=== PATIENT | female | born 1950 | race Hispanic/Latino ===

== ENCOUNTER 2016-05-16 08:16 | Emergency (ER) | payer MEDICARE, OTHER ==
[2016-05-16 08:16] VITALS: PULSE 150; BMI 20.9
[2016-05-16] MEDS ORDERED: Phenol Topical 1.4% Throat Spray (180 ml) MT PRN (09:05)
--- NOTE | 2016-05-16 09:20 | ED PDOC ---
Arrival/HPI - General Historian: Patient - History of Present Illness Time/Duration: < week - General Chief Complaint: ENT Problem Time Seen by Provider: 05/16/16 08:50 - History of Present Illness Narrative History of Present Illness (Text): 05/16/16 09:15 65 y/o female with hx alcoholic cardiomyopathy, COPD, CHF presenting with complaints of a sore throat. States symptoms have been ongoing for 3 days. Patient denies associated fever, chills, shortness of breath, cough or sinus congestion.She denies sick contacts as well. Patient further states she cannot tolerate solids or liquids by mouth due the discomfort. She has not taken her medications for 3 days. (Pepe Boo) Past Medical History - Provider Review Nursing Documentation Reviewed: Yes - Past History Past History: Non-Contributing - Infectious Disease Hx of Infectious Diseases: None - Tetanus Immunization Tetanus Immunization: Up to Date, Unknown - Cardiac Hx Cardiac Disorders: Yes Hx Congestive Heart Failure: Yes Hx Hypertension: Yes - Pulmonary Hx Chronic Obstructive Pulmonary Disease (COPD): Yes - Neurological Hx Neurological Disorder: Yes (syncope ams) Hx Dizziness: Yes - HEENT Hx HEENT Disorder: Yes (eyeglasses) - Renal Hx Renal Disorder: No - Endocrine/Metabolic Hx Endocrine Disorders: Yes Other/Comment: hyperglycemia - Hematological/Oncological Hx Blood Disorders: Yes (thrombocytopenia) Hx Anemia: Yes (blood transfusion) Hx Cancer: Yes (follicular lymphoma 2007) Hx Chemotherapy: Yes Other/Comment: gastrointestinal ca 2007 - Integumentary Hx Dermatological Disorder: No (LEFT UPPER ARM IN AND OUT OF PORT.) - Musculoskeletal/Rheumatological Hx Falls: Yes - Gastrointestinal Hx Gastrointestinal Disorders: Yes (C DIFF,GASTROENTERITIS) - Genitourinary/Gynecological Hx Reproductive Disorders: No - Psychiatric Hx Emotional Abuse: No Hx Physical Abuse: No Hx Substance Use: No - Past Surgical History Past Surgical History: Non-Contributing - Surgical History Hx Cardiac Catheterization: Yes Hx Coronary Stent: Yes Hx Orthopedic Surgery: Yes (left humerus sx) - Anesthesia Hx Anesthesia Reactions: Yes (SEE ALLERGIES) Hx Malignant Hyperthermia: No - Suicidal Assessment Feels Threatened In Home Enviroment: No Family/Social History - Physician Review Nursing Documentation Reviewed: Yes Family/Social History: No Known Family HX Smoking Status: Former Smoker Hx Alcohol Use: No Amount per day: 3 Hx Substance Use: No Hx Substance Use Treatment: No Allergies/Home Meds Allergies/Adverse Reactions: Allergies diphenhydramine HCl [From Benadryl] Allergy (Verified 05/16/16 08:22) SHORTNESS OF BREATH IV AND BLOOD PRESSURE LOW anesthetic agents Allergy (Severe, Uncoded 05/16/16 08:22) ANAPHYLAXIS anesthesia Allergy (Intermediate, Uncoded 05/16/16 08:22) RASH Home Medications: Home Meds Medication Instructions Recorded Confirmed Furosemide [Lasix] 20 mg PO PRN 02/26/16 03/03/16 Review of Systems - Physician Review All systems were reviewed & negative as marked: Yes - Review of Systems Constitutional: absent: Fatigue, Fevers Eyes: Normal ENT: Sore Throat. absent: Voice Changes, Rhinorrhea, Sinus Congestion Respiratory: absent: SOB, Cough, Sputum, Wheezing Cardiovascular: absent: Chest Pain, Calf Pain Gastrointestinal: absent: Abdominal Pain, Diarrhea, Nausea, Vomiting Genitourinary Female: absent: Dysuria, Frequency, Hematuria Musculoskeletal: absent: Arthralgias, Back Pain, Neck Pain Skin: absent: Rash, Pruritis, Skin Lesions Neurological: absent: Headache, Dizziness, Focal Weakness Psychiatric: absent: Anxiety, Depression Physical Exam Vital Signs Reviewed: Yes Temperature: Afebrile Blood Pressure: Normal Pulse: Regular Respiratory Rate: Normal Appearance: Positive for: Well-Appearing, Non-Toxic Pain Distress: None Mental Status: Positive for: Alert and Oriented X 3 - Systems Exam Head: Present: Atraumatic, Normocephalic Pupils: Present: PERRL Extroacular Muscles: Present: EOMI Conjunctiva: Present: Normal Mouth: Present: Moist Mucous Membranes, Normal Tounge Pharnyx: No: ERYTHEMA, EXUDATE, Peritonsilar Swelling Neck: Present: Normal Range of Motion. No: Meningeal Signs Respiratory/Chest: Present: Good Air Exchange, Rhonchi. No: Respiratory Distress Cardiovascular: Present: Regular Rate and Rhythm, Normal S1, S2 Abdomen: No: Tenderness, Normal Bowel Sounds Upper Extremity: Present: Normal Inspection. No: Cyanosis, Edema Lower Extremity: Present: Normal Inspection, NORMAL PULSES. No: Edema, CALF TENDERNESS Neurological: Present: GCS=15, CN II-XII Intact, Speech Normal Skin: Present: Warm, Dry. No: Rashes Psychiatric: Present: Alert, Oriented x 3, Normal Insight, Normal Concentration Vital Signs Temp Pulse Resp BP Pulse Ox 05/16/16 11:00 98.0 F 64 18 118/64 98 05/16/16 09:25 97.9 F 66 18 121/63 98 05/16/16 08:24 97.5 F L 64 17 122/67 97 Medical Decision Making ED Course and Treatment: A 65 year old female with a sore throat. Patient denies fever, chills, cough, congestion or other complaints. In agreement with resident note, which includes further HPI details. Patient was seen and evaluated with resident, came up with plan and treatment together. Physical exam unremarkable. (Pepe Ayon) 05/16/16 09:22 65 y/o female with hx COPD, CHF presenting with complaints of a sore throat. Patient is afebrile and without respiratory distress or symptoms. W - rapid strep - CBC - CMP - phenol spray for throat pain 05/16/16 15:43 Patient refused labs. Rapid strep is negative. Presentation is likely secondary to viral infection. Patient discharged home with instruction to use Magic Mouthwash as needed for throat discomfort. She is also advised to use Motrin solution as needed for pain. Patient is to see her PCP within one week for further evaluation. (Pepe Boo) - Lab Interpretations Lab Results: Lab Results 05/16/16 10:30: Grp A Beta Strep Ag Negative - Medication Orders Current Medication Orders: Discontinued Medications Al Hydrox/Mg Hydrox/Simethicone 30 ml/Diphenhydramine HCl 75 mg/Lidocaine 30 ml 0 ml PO Q2H PRN PRN Reason: Mouth/Throat Pain Last Admin: 05/16/16 10:20 Dose: 30 ML Ibuprofen (Motrin Oral Susp) 400 mg PO STAT STA Stop: 05/16/16 09:37 Last Admin: 05/16/16 09:50 Dose: 400 MG MAR Pain/Vitals Document 05/16/16 09:50 BAN (Rec: 05/16/16 10:20 BAN [id number]) Pain Reassessment Is This A Pain ReAssessment? No Sleep Is patient sleeping during reassessment? No Presence of Pain Presence of Pain Yes Disposition/Present on Arrival - Present on Arrival Any Indicators Present on Arrival: No History of DVT/PE: No History of Uncontrolled Diabetes: No Urinary Catheter: No History of Decub. Ulcer: No History Surgical Site Infection Following: None - Disposition Have Diagnosis and Disposition been Completed?: Yes Disposition Time: 15:45 - Disposition Diagnosis: Pharyngitis Disposition: HOME/ ROUTINE Patient Problems: Current Active Problems Problem Status Diagnosed Alcohol withdrawal syndrome Acute COPD exacerbation Acute Congestive heart failure (CHF) Acute Hypoglycemia Acute Hypokalemia Acute Intractable vomiting Acute Condition: STABLE Discharge Instructions (ExitCare): Pharyngitis (ED) Additional Instructions: Please see your family physician within one week for re-evaluation of your symptoms. Continue to use Magic Mouthwash daily for symptoms of sore throat. Return to the ER if your symptoms worsen or do not resolve. Prescriptions: Ibuprofen Susp [Motrin Oral Susp] 600 mg PO Q6H #20 udc Ibuprofen [Motrin] 600 mg PO Q6H #20 tab Referrals: Baljeet King MD [Primary Care Provider] - Follow up with primary
[2016-05-16 09:26] VITALS: RESP 18; O2SAT 98
[2016-05-16] MEDS ORDERED: Aluminum Hydroxide/Magnesium 30 ML, DiphenhydrAMINE 75 MG, Lidocaine 2% Viscous 30 ML PO PRN (09:36)
[2016-05-16 11:35] VITALS: BP 118/64; PULSE 64; TEMP 98
== END 2016-05-16 11:48 | disposition home or self-care (01) ==
LOC: ED 08:16
DX: J02.9 Acute pharyngitis, unspecified (principal); Z87.891 Personal history of nicotine dependence

== ENCOUNTER 2016-05-22 06:23 | Inpatient (IN) | payer MEDICARE, OTHER ==
[2016-05-22 06:24] VITALS: PULSE 150
[2016-05-22 07:01] VITALS: BMI 20.6
[2016-05-22] MEDS ORDERED: Sodium Chloride 0.9% 1,000 ML IV STA (07:18)
[2016-05-22 07:24] LABS: ADD MANUAL DIFF? NO
[2016-05-22 07:29] LABS: GRAN # 8.15 (1.4-6.5); GRAN % 88.4 % (50.0-68.0); HEMATOCRIT 33.3 % (36.0-48.0); LYMPH # 0.5 (1.2-3.4); LYMPH % 5.2 % (22.0-35.0); MEAN CELL VOLUME 101.8 fL (80.0-105.0); MEAN CORPUSCULAR HEMOGLOBIN 35.2 pg (25.0-35.0); MEAN CORPUSCULAR HGB CONC 34.5 g/dl (31.0-37.0); MEAN PLATELET VOLUME 9.4 fl (7.0-11.0); MONO # 0.6 (0.1-0.6); MONO % 6.4 % (1.0-6.0); PLATELET COUNT 212 10^3/uL (120.0-450.0); RED CELL DISTRIBUTION WIDTH 15.4 % (11.5-14.5); WHITE BLOOD COUNT 9.2 10^3/ul (4.5-11.0)
--- NOTE | 2016-05-22 07:33 | ED PDOC ---
Arrival/HPI - General Chief Complaint: Weakness/Neurological Deficit Time Seen by Provider: 05/22/16 07:07 Historian: Patient - History of Present Illness Narrative History of Present Illness (Text): 05/22/16 07:11 A 65 year old female, whose past medical history alcoholic cardiomyopathy, COPD , and CHF, who presents to the emergency department complaining of worsening generalized weakness for the past 3 days. Patient reports she has not been feeling well and is unable to tolerate any PO because of a burning sensation to the throat. Patient denies any change of cough, fever, nausea, vomiting, diarrhea, abdominal pain, dysuria, or any other complaints at this time. PMD: Dr. King Time/Duration: Other (3 days) Symptom Onset: Gradual Symptom Course: Worsening Quality: Burning Activities at Onset: Rest Context: Home Past Medical History - Provider Review Nursing Documentation Reviewed: Yes - Past History Past History: Non-Contributing - Infectious Disease Hx of Infectious Diseases: None - Tetanus Immunization Tetanus Immunization: Up to Date, Unknown - Cardiac Hx Cardiac Disorders: Yes Hx Congestive Heart Failure: Yes Hx [place]: Yes (x2) Hx Hypertension: Yes - Pulmonary Hx Chronic Obstructive Pulmonary Disease (COPD): Yes Hx Lung Cancer: Yes - Neurological Hx Neurological Disorder: Yes (syncope ams) Hx Dizziness: Yes - HEENT Hx HEENT Disorder: Yes (eyeglasses) - Renal Hx Renal Disorder: No - Endocrine/Metabolic Hx Endocrine Disorders: Yes Other/Comment: hyperglycemia - Hematological/Oncological Hx Blood Disorders: Yes (thrombocytopenia) Hx Anemia: Yes (blood transfusion) Hx Cancer: Yes (follicular lymphoma 2007) Hx Chemotherapy: Yes Other/Comment: gastrointestinal ca 2007 - Integumentary Hx Dermatological Disorder: No (LEFT UPPER ARM IN AND OUT OF PORT.) - Musculoskeletal/Rheumatological Hx Falls: Yes Other/Comment: old fx right humerus unable to be set - Gastrointestinal Hx Gastrointestinal Disorders: Yes (C DIFF,GASTROENTERITIS) - Genitourinary/Gynecological Hx Genitourinary Disorders: No Hx Reproductive Disorders: No - Psychiatric Hx Emotional Abuse: No Hx Physical Abuse: No Hx Substance Use: No Other/Comment: alcohol abuse - Past Surgical History Past Surgical History: Non-Contributing - Surgical History Hx Cardiac Catheterization: Yes Hx Coronary Stent: Yes Hx Orthopedic Surgery: Yes (left humerus sx) Other/Comment: ca lung - Anesthesia Hx Anesthesia Reactions: Yes (SEE ALLERGIES) Hx Malignant Hyperthermia: No - Suicidal Assessment Feels Threatened In Home Enviroment: No Family/Social History - Physician Review Nursing Documentation Reviewed: Yes Family/Social History: Unknown Family HX Smoking Status: Light Smoker < 10 Cigarettes Daily Hx Alcohol Use: Yes (nicanor) Frequency of alcohol use: Daily Amount per day: 3 Hx Substance Use: No Hx Substance Use Treatment: No Allergies/Home Meds Allergies/Adverse Reactions: Allergies diphenhydramine HCl [From Benadryl] Allergy (Verified 05/22/16 07:02) SHORTNESS OF BREATH IV AND BLOOD PRESSURE LOW anesthesia Allergy (Intermediate, Uncoded 05/16/16 08:22) RASH anesthetic agents Allergy (Mild, Uncoded 05/22/16 07:02) ANAPHYLAXIS Home Medications: Home Meds Medication Instructions Recorded Confirmed Furosemide [Lasix] 20 mg PO PRN 02/26/16 03/03/16 ALPRAZolam [Xanax] 1 mg PO PRN PRN 05/22/16 05/22/16 Review of Systems - Physician Review All systems were reviewed & negative as marked: Yes - Review of Systems Constitutional: Fatigue. absent: Fevers ENT: Other (burning sensation to the throat) Respiratory: Cough ((usual)) Gastrointestinal: Appetite Changes. absent: Abdominal Pain, Diarrhea, Nausea, Vomiting Genitourinary Female: absent: Dysuria Physical Exam Vital Signs Reviewed: Yes Vital Signs Temp Pulse Resp BP Pulse Ox 05/22/16 09:35 98.9 F 55 L 20 113/53 L 95 05/22/16 07:00 100.0 F H 61 16 125/56 L 100 Temperature: Febrile Blood Pressure: Hypotensive Pulse: Regular Respiratory Rate: Normal Appearance: Positive for: Non-Toxic, Ill-Appearing Pain Distress: None Mental Status: Positive for: Alert and Oriented X 3 - Systems Exam Head: Present: Atraumatic, Normocephalic Pupils: Present: PERRL Extroacular Muscles: Present: EOMI Conjunctiva: Present: Normal Mouth: Present: Dry Neck: Present: Normal Range of Motion Respiratory/Chest: Present: Good Air Exchange, Rhonchi (bilaterally). No: Respiratory Distress, Accessory Muscle Use, Wheezes, Rales, Tachypneic, Tender to Palpation Cardiovascular: Present: Regular Rate and Rhythm, Normal S1, S2. No: Murmurs Abdomen: Present: Normal Bowel Sounds. No: Tenderness, Distention, Peritoneal Signs Back: Present: Normal Inspection Upper Extremity: Present: Deformity (chronic right upper extremity deformity). No: Cyanosis, Edema Lower Extremity: Present: Normal Inspection. No: Edema Neurological: Present: GCS=15, CN II-XII Intact, Speech Normal Skin: Present: Warm, Dry, Normal Color. No: Rashes Psychiatric: Present: Alert, Oriented x 3, Normal Insight, Normal Concentration Medical Decision Making ED Course and Treatment: EKG: Ordered, reviewed, and independently interpreted the EKG. Rate : 48 BPM Rhythm : Sinus Bradycardia Interpretation : Left bundle branch block, No STEMI. 05/22/16 08:11 Chest X-ray: As read by me, bibasilar atelectasis, similar to previous chest x- ray for comparison. 05/22/16 10:13 Patient serology is negative for Influenza A and B. Case discussed with Dr. King, who is aware and agrees with the plan to admit the patient to Med/Surg under his service for Pneumonia and Dehydration. I have discussed the results and plan with the patient, who expresses understanding. Patient given the opportunity to ask question, all questions were answered and there is agreement with the plan to be admitted to the hospital. - Lab Interpretations Lab Results: 05/22/16 07:00 05/22/16 07:00 Lab Results 05/22/16 08:50: Influenza Typ A,B (EIA) Negative for flu a/b 05/22/16 08:45: pO2 171 H, VBG pH 7.24 L, VBG pCO2 45.0, VBG HCO3 19.3 L, VBG Total CO2 20.7 L, VBG O2 Sat (Calc) 99.5 H, VBG Base Excess -8.0 L, VBG Potassium 4.7, Sodium 131.0 L, Chloride 103.0, Glucose 73, Lactate 1.2, FiO2 21.0, Venous Blood Potassium 4.7 05/22/16 07:00: WBC 9.2 D, RBC 3.27 L, Hgb 11.5 L, Hct 33.3 L, MCV 101.8, MCH 35.2 H, MCHC 34.5, RDW 15.4 H, Plt Count 212, MPV 9.4, Gran % 88.4 H, Lymph % ( Auto) 5.2 L, [place] % (Auto) 6.4 H, Eos % (Auto) 0.0 L, Baso % (Auto) 0.0, Gran # 8.15 H, Lymph # 0.5 L, [place] # 0.6, Eos # 0.0, Baso # 0.00, Sodium 132, Chloride 98, Potassium 4.4, Carbon Dioxide 22, Anion Gap 16, BUN 28 H, Creatinine 1.0, Est GFR ( Amer) > 60, Est GFR (Non-Af Amer) 55, Random Glucose 83, Calcium 9.1, Total Bilirubin 0.8, AST 30, ALT < 6 L, Alkaline Phosphatase 184 H , Troponin I 0.03 D, NT-Pro-B Natriuret Pep 8570 H, Total Protein 7.3, Albumin 3.5, Globulin 3.8, Albumin/Globulin Ratio 0.9 L, Alcohol, Quantitative < 10 I have reviewed the lab results: Yes - RAD Interpretation Radiology Orders: 05/22/16 07:18 CHEST PORTABLE [RAD] Stat - Medication Orders Current Medication Orders: Discontinued Medications Sodium Chloride (Sodium Chloride 0.9%) 1,000 mls @ 999 mls/hr IV .Q1H1M STA Stop: 05/22/16 08:18 Last Admin: 05/22/16 07:22 Dose: 999 MLS/HR eMAR Start Stop Document 05/22/16 07:22 RD (Rec: 05/22/16 07:23 RD [id number]) Intravenous Solution Start Date 05/22/16 Start Time 07:22 End Date 05/22/16 End time 08:23 Total Infusion Time 61 Azithromycin (Zithromax 500mg In Ns) 250 mls @ 167 mls/hr IVPB STAT STA PRN Reason: Protocol Stop: 05/22/16 09:34 Ceftriaxone Sodium (Rocephin 1 Gram Ivpb) 100 mls @ 200 mls/hr IVPB STAT STA PRN Reason: Protocol Stop: 05/22/16 08:34 Last Admin: 05/22/16 09:03 Dose: 200 MLS/HR eMAR Start Stop Document 05/22/16 09:03 SE (Rec: 05/22/16 09:03 SE [id number]) Intravenous Solution Start Date 05/22/16 Start Time 09:03 Promethazine HCl/Dextromethorphan (Phenergan Dm Syrup) 5 ml PO Q6H STA Stop: 05/22/16 10:06 - Scribe Statement The provider has reviewed the documentation as recorded by the Scribe Edwin Santos Provider Scribe Attestation: All medical record entries made by the Scribe were at my direction and personally dictated by me. I have reviewed the chart and agree that the record accurately reflects my personal performance of the history, physical exam, medical decision making, and the department course for this patient. I have also personally directed, reviewed, and agree with the discharge instructions and disposition. Disposition/Present on Arrival - Present on Arrival Any Indicators Present on Arrival: No History of DVT/PE: No History of Uncontrolled Diabetes: No Urinary Catheter: No History of Decub. Ulcer: No History Surgical Site Infection Following: None - Disposition Have Diagnosis and Disposition been Completed?: Yes Diagnosis: Pneumonia, Dehydration Disposition: HOSPITALIZED Disposition Time: 10:13 Patient Problems: Current Active Problems Problem Status Diagnosed Alcohol withdrawal syndrome Acute COPD exacerbation Acute Congestive heart failure (CHF) Acute Hypoglycemia Acute Hypokalemia Acute Intractable vomiting Acute Condition: FAIR Referrals: Baljeet King MD [Primary Care Provider] - Follow up with primary
[2016-05-22 07:57] LABS: ALB/GLOB RATIO 0.9 (1.1-1.8); ALKALINE PHOSPHATASE 184 U/L (38-133); AST/SGOT 30 U/L (15-39); BILIRUBIN,TOTAL 0.8 mg/dL (0.2-1.3); BLOOD UREA NITROGEN 28 mg/dL (7-21); CALCIUM 9.1 mg/dL (8.4-10.5); CARBON DIOXIDE 22 mmol/L (21-33); CHLORIDE 98 mmol/L (98-107); GFR AFRICAN-AMERICAN > 60; GLUCOSE,RANDOM 83 mg/dL (70-110); POTASSIUM 4.4 mmol/L (3.6-5.0); SODIUM 132 mmol/L (132-148); TOTAL PROTEIN 7.3 g/dL (5.8-8.3)
[2016-05-22 08:01] LABS: ALT/SGPT < 6 U/L (7-56)
[2016-05-22] MEDS ORDERED: Azithromycin 500MG/NS 250ml 250 ML IVPB STA (08:05)
[2016-05-22] MEDS ORDERED: cefTRIAXone 1 gm 100 ML IVPB STA (08:05)
[2016-05-22 08:44] LABS: TROPONIN I 0.03 ng/mL
[2016-05-22 08:58] LABS: VENOUS BLOOD PH 7.24 (7.32-7.43)
--- NOTE | 2016-05-22 09:08 | RAD ---
HISTORY: weak fever COMPARISON: 03/05/2016 FINDINGS: LUNGS: No active pulmonary disease. PLEURA: No significant pleural effusion identified, no pneumothorax apparent. CARDIOVASCULAR: Normal. OSSEOUS STRUCTURES: No significant abnormalities. VISUALIZED UPPER ABDOMEN: Normal. OTHER FINDINGS: None. IMPRESSION: No active disease.
[2016-05-22] MEDS ORDERED: Promethazine DM 6.25 mg-15 mg/5 ml Syrup PO STA (10:05)
[2016-05-22 14:14] LABS: URINE BILIRUBIN NEGATIVE (NEGATIVE); URINE BLOOD TRACE-LYSED (NEGATIVE); URINE GLUCOSE (UA) NEGATIVE (NEGATIVE); URINE KETONE NEGATIVE (NEGATIVE); URINE LEUKOCYTE ESTERASE TRACE Leu/uL (NEGATIVE); URINE PROTEIN NEGATIVE mg/dL (<30 mg/dL); URINE UROBILINOGEN 0.2 E.U./dL (<1 E.U./dL)
[2016-05-22 14:15] LABS: URINE APPEARANCE CLEAR (CLEAR); URINE COLOR YELLOW (YELLOW)
[2016-05-22 14:19] LABS: URINE RBC 0 - 2 /hpf (0-2); URINE WBC 0 - 2 /hpf (0-6)
[2016-05-22 14:20] LABS: URINE EPITHELIAL CELLS 0 - 2 /hpf (0-5)
[2016-05-22] MEDS: Dextrose 5%/0.45% NS 1,000 ML IV SCH (16:20)
--- NOTE | 2016-05-22 19:00 | CARD ---
APPROVED REPORT EKG Measurement Heart [id number] <Conclusion> Marked sinus bradycardia Left axis deviation Left bundle branch block Abnormal ECG
[2016-05-22] MEDS: Oxycodone/Acetaminophen 5/325 mg Tab PO PRN (21:54)
[2016-05-23] MEDS: Oxycodone/Acetaminophen 5/325 mg Tab PO PRN ×4 (06:16→21:40)
[2016-05-23 07:23] LABS: ADD MANUAL DIFF? NO
[2016-05-23 07:29] LABS: BASO # 0.01 K/mm3 (0.0-2.0); BASO % 0.2 % (0.0-3.0); EOS % 0.4 % (1.5-5.0); GRAN % 74.6 % (50.0-68.0); HEMATOCRIT 28.6 % (36.0-48.0); LYMPH # 0.4 (1.2-3.4); LYMPH % 7.5 % (22.0-35.0); MEAN CELL VOLUME 101.4 fL (80.0-105.0); MEAN CORPUSCULAR HEMOGLOBIN 35.1 pg (25.0-35.0); MEAN CORPUSCULAR HGB CONC 34.6 g/dl (31.0-37.0); MEAN PLATELET VOLUME 8.9 fl (7.0-11.0); MONO # 0.9 (0.1-0.6); MONO % 17.3 % (1.0-6.0); PLATELET COUNT 184 10^3/uL (120.0-450.0); RED CELL DISTRIBUTION WIDTH 15.4 % (11.5-14.5)
[2016-05-23 07:55] LABS: ALB/GLOB RATIO 0.9 (1.1-1.8); ALKALINE PHOSPHATASE 132 U/L (38-133); ALT/SGPT 30 U/L (7-56); AST/SGOT 52 U/L (15-39); BILIRUBIN,TOTAL 0.7 mg/dL (0.2-1.3); BLOOD UREA NITROGEN 14 mg/dL (7-21); CALCIUM 8.5 mg/dL (8.4-10.5); CARBON DIOXIDE 21 mmol/L (21-33); CHLORIDE 107 mmol/L (98-107); GFR AFRICAN-AMERICAN > 60; GLUCOSE,RANDOM 87 mg/dL (70-110); POTASSIUM 3.4 mmol/L (3.6-5.0); SODIUM 138 mmol/L (132-148)
[2016-05-23] MEDS: Dextrose 5%/0.45% NS 1,000 ML IV SCH (08:55)
--- NOTE | 2016-05-23 11:33 | HP ---
HISTORY OF PRESENT ILLNESS: The patient is a 65-year-old female who presented to the Emergency Room complaining of severe throat pain, inability to swallow, and was associated with generalized weakness and shortness of breath. She said the onset was several days ago. She had been to the Emergency Ro om 2 days ago and was given medications for the soreness in her mouth, which included viscous lidocai ne rinse and spit; however, this did not alleviate her symptoms. Therefore, she returned to the [facility] Room, is once again evaluated and admitted. PAST MEDICAL HISTORY: She is known to have a past medical history positive for alcoholic cardiomyopa thy, congestive heart failure, status post myocardial infarction. 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 She has a nonhealing fracture of the righ t humerus. She suffered cardiac arrest following introduction of anesthesia for surgical repair of t his fracture several years ago and she refused repeat surgery ever since then. She is also known to have a history of follicular lymphoma in the distant past and COPD. SOCIAL HISTORY: She has not taken any alcoholic beverage in the past several months. She does, peacock trixie, continue to smoke. ALLERGIES: SHE IS KNOWN TO BE ALLERGIC TO BENADRYL, WHICH CAUSED SHORTNESS OF BREATH AND HYPOTENSION IN THE PAST. SHE HAD THE ADVERSE REACTION TO ANESTHESIA FOR SURGICAL REPAIR OF HER RIGHT HUMERUS MENTIONED ABOVE. HOME MEDICATIONS: Included Lasix 20 mg as needed and Xanax 1 mg as needed. PHYSICAL EXAMINATION: VITAL SIGNS: Blood pressure is 125/56, heart rate is 61, temperature is 100.0 degrees Fahrenheit. GENERAL: She is awake, alert, oriented. She appears to be ill, weak and frail. HEENT: Shows the throat and oropharynx to be erythematous. There is no lymphadenopathy in the neck. NECK: Supple. LUNGS: On pulmonary auscultation, there are some bilateral rhonchi appreciated with expiratory wheez ing. HEART: Sounds are regular. No murmurs are appreciated. ABDOMEN: Soft, nontender with no organomegaly. EXTREMITIES: Free of cyanosis, clubbing or edema. There is the chronic right humerus fracture as me ntioned above. NEUROLOGIC: She is awake, alert, and oriented with no focal neurological signs. LABORATORY STUDIES: Chest x-ray shows no acute disease. EKG shows bradycardia with left axis deviat ion and a left bundle branch block. White blood cell counts are normal at 9.2, hemoglobin and hemato crit are 11.5 and 33.3, platelet count is 212. Sodium is 132, potassium 4.4, BUN and creatinine are 28 and 1.0 respectively. The BNP is elevated at 8570. Liver enzymes show an alkaline phosphatase sl ightly elevated at 184. Troponins are 0.03. So the patient is admitted, she is started on IV fluids, she is started on intravenous antibiotics an d she will be followed closely. Baljeet King MD cc: 438 TT: 05/23/2016 11:32:54 mn
[2016-05-23] MEDS ORDERED: Pantoprazole 40 mg EC Tab PO STA (12:40)
[2016-05-23] MEDS: Alum-Mag Hydrox-Simethicone Susp (30 mL) PO SCH ×3 (13:05→20:12)
[2016-05-23] MEDS: Albuterol-Ipratrop 3 mg / 0.5 (3 ml) UD IH SCH ×2 (15:18→20:23)
[2016-05-23] MEDS ORDERED: Potassium Chloride 20 mEq/15 ml LIQ UD PO STA (16:33)
[2016-05-23] MEDS: Nystatin 100,000 Units/ml Oral Susp 5 ml UD PO SCH ×2 (17:09→21:40)
[2016-05-23] MEDS ORDERED: Albuterol-Ipratrop 3 mg / 0.5 (3 ml) UD IH SCH (20:00)
[2016-05-23] MEDS: Insulin Reg-MEDIUM-Coverage SC SCH (22:27)
[2016-05-24] MEDS: Alum-Mag Hydrox-Simethicone Susp (30 mL) PO SCH ×6 (00:21→21:33)
[2016-05-24] MEDS: Oxycodone/Acetaminophen 5/325 mg Tab PO PRN ×4 (01:21→14:02)
[2016-05-24] MEDS: Albuterol-Ipratrop 3 mg / 0.5 (3 ml) UD IH SCH ×4 (01:31→19:35)
[2016-05-24] MEDS: Dextrose 5%/0.45% NS 1,000 ML IV SCH (03:50)
[2016-05-24] MEDS ORDERED: Pantoprazole 40 mg EC Tab PO SCH (06:30)
[2016-05-24 07:53] LABS: HEMATOCRIT 29.8 % (36.0-48.0); MEAN CELL VOLUME 101.4 fL (80.0-105.0); MEAN CORPUSCULAR HEMOGLOBIN 34.4 pg (25.0-35.0); MEAN CORPUSCULAR HGB CONC 33.9 g/dl (31.0-37.0); MEAN PLATELET VOLUME 8.8 fl (7.0-11.0); RED CELL DISTRIBUTION WIDTH 15.2 % (11.5-14.5); WHITE BLOOD COUNT 3.1 10^3/ul (4.5-11.0)
[2016-05-24 08:08] LABS: ALB/GLOB RATIO 0.9 (1.1-1.8); ALKALINE PHOSPHATASE 136 U/L (38-133); ALT/SGPT 40 U/L (7-56); AST/SGOT 69 U/L (15-39); BILIRUBIN,TOTAL 0.6 mg/dL (0.2-1.3); BLOOD UREA NITROGEN 8 mg/dL (7-21); CALCIUM 8.9 mg/dL (8.4-10.5); CARBON DIOXIDE 23 mmol/L (21-33); CHLORIDE 105 mmol/L (98-107); GFR AFRICAN-AMERICAN > 60; GLUCOSE,RANDOM 143 mg/dL (70-110); POTASSIUM 3.7 mmol/L (3.6-5.0); SODIUM 139 mmol/L (132-148); TOTAL PROTEIN 6.8 g/dL (5.8-8.3)
[2016-05-24] MEDS: Insulin Reg-MEDIUM-Coverage SC SCH ×3 (08:11→18:50)
--- NOTE | 2016-05-24 09:34 | CON ---
DATE: 05/24/2016 REFERRING PHYSICIAN: Dr. King. REASON FOR CONSULTATION: Chronic obstructive pulmonary disease. History is obtained via extensive discussion with the night nurse. I have also reviewed the chart at length, and discussed the case with the patient at length. The patient is a 65-year-old female with past medical history significant for chronic obstructive pulmonary disease, coronary artery disease, congestive heart failure, alcoholic cardiomyopathy, who presents to [facility] with main complaint of worsening generalized weakness for the past 3 days. The patient stated (in the Emergency Room) that she was unable to tolerate anything by mouth because of a burning sensation in her throat. She was thus admitted for additional evaluation. The patient is not short of breath at rest. She does have some chronic mild dyspnea on exertion - unchanged. The patient also states to a chronic occasional cough with no significant sputum production. There is no history of chest pain, coughing up of blood or chest pain - made worse with deep respirations. There is no history of temperatures, chills or infectious exposure. There is no history of night sweats, weight loss or appetite change prior to the above events. No history of leg or calf pains. No history of syncope or diaphoresis. No history of recent travel or trauma. REVIEW OF SYSTEMS: No history of nausea, vomiting or diarrhea. No acute urinary symptoms. No new neurological complaints. Rest of review of systems is negative. ALLERGIES: BENADRYL. SOCIAL HISTORY: Positive for extensive tobacco usage. Also positive for extensive alcohol abuse. FAMILY HISTORY: No inheritable diseases. HOME MEDICATIONS: Include Xanax, Ultram, Ambien, Motrin, Lasix, Brovana. PHYSICAL EXAMINATION: GENERAL: The patient is not short of breath at rest. She is not using accessory muscles for breathing. VITAL SIGNS: Temperature is 97.8, pulse 72, respirations 18/20, blood pressure 119/52. Oxygen saturation on room air is 100%. HEENT: Normocephalic, atraumatic. NECK: No JVD. CARDIOVASCULAR: Positive S1, S2. No S3. LUNGS: Minimal bilateral rhonchi. No wheezing. EXTREMITIES: Mild edema. No cyanosis, no clubbing. Calves are nontender to palpation. GASTROINTESTINAL: Abdomen is soft, nontender, nondistended. Bowel sounds are positive. SKIN: No acute rash. NEUROLOGIC: Limited at the present time. PERTINENT LABORATORY DATA: Chest x-ray was done yesterday and reviewed. There are no new or significant changes noted. CBC: White count 5.0, hemoglobin 9.9 , hematocrit 28.6, platelets of 184. Complete metabolic profile: Potassium 3.4 , AST 52, albumin 2.9. Rest of the metabolic profile is within normal limits. Initial BUN/creatinine - 28/1.0. IMPRESSION: 1. Severe weakness. 2. Mild dehydration. 3. Chronic obstructive pulmonary disease. 4. Coronary artery disease. 5. Cardiomyopathy. PLAN: Again, I did discuss the case with the night nurse at length. I have also discussed the case with the patient at length, and reviewed the chart at length. The patient presents to [facility] with main complaints of increasing generalized weakness and decreased oral intake for the past 3 days. Upon initial laboratory evaluation, it was noted that the patient was mildly dehydrated. She was thus admitted for additional evaluation. Again, I did question the nurse and the patient at length. There are no new or significant pulmonary symptoms reported. On physical exam, only minimal bronchospasm is noted. In addition, the oxygen saturation on room air is 100%. I will continue with the current nebulizer treatments and decrease the intravenous steroids this morning. The patient is currently on antibiotic therapy. There are no temperatures by history. There is no leukocytosis. Repeat a.m. labs are pending. Repeat chest x-ray is also ordered. The patient does feel better this morning-- compared to the past few days, and is clinically improved. Additional pulmonary intervention will be based on the clinical status of the patient. I will discuss the above with Dr. King. Thank you very much for this pulmonary consultation. Adam Parker MD cc: [id number] TT: 05/24/2016 09:34:27 Confirmation # [id number] Dictation # [id number] anabell HENRIQUEZ
[2016-05-24] MEDS: MethylPREDNISolone 40 mg Vial IVP SCH ×2 (10:22→21:33)
[2016-05-24] MEDS: Nystatin 100,000 Units/ml Oral Susp 5 ml UD PO SCH ×4 (10:22→21:33)
--- NOTE | 2016-05-24 12:43 | RAD ---
HISTORY: assess for congestion COMPARISON: 05/22/2016 FINDINGS: LUNGS: No active pulmonary disease. PLEURA: No significant pleural effusion identified, no pneumothorax apparent. CARDIOVASCULAR: Mild cardiomegaly OSSEOUS STRUCTURES: No significant abnormalities. VISUALIZED UPPER ABDOMEN: Normal. OTHER FINDINGS: None. IMPRESSION: No active disease.
--- NOTE | 2016-05-24 16:43 | CARD ---
APPROVED REPORT EXAM: Two-dimensional and M-mode echocardiogram with Doppler and color Doppler. INDICATION LV Function:SystolicDiastolic 2D DIMENSIONS Left Atrium (2D)4.2 (1.6-4.0cm)IVSd0.9 (0.7-1.1cm) LVDd5.6 (3.9-5.9cm)PWd1.0 (0.7-1.1cm) LVDs5.2 (2.5-4.0cm)FS (%) 6.6 % LVEF (%)14.5 (>50%) M-Mode DIMENSIONS Aortic Root2.40 (2.2-3.7cm)Aortic Cusp Exc.1.50 (1.5-2.0cm) Aortic Valve AoV Peak Twoojuiq248.0cm/[place] Peak GR.15mmHg Mitral Valve MV E Vqxhmfxk92.9cm/sMV A Kcxsmghf97.8cm/sE/A ratio0.9 TDI E/Lateral E'0.0E/Medial E'0.0 Tricuspid Valve TR Peak Boqgopfm287nj/sRAP [id number] Peak Gr.27mmHg [id number] LEFT VENTRICLE The Left Ventricle is mildly dilated. There is normal left ventricular wall thickness. The systolic function is severely impaired. Sever Septal and Apical hypokinesis Transmitral Doppler flow pattern is Grade I-abnormal relaxation pattern. No left ventricle thrombus noted on this study. RIGHT VENTRICLE The right ventricle is normal size. There is normal right ventricular wall thickness. The right ventricular systolic function is normal. ATRIA The left atrium is mildly dilated. The right atrium size is normal. AORTIC VALVE The aortic valve is normal in structure. MITRAL VALVE Mitral regurgitation is mild to moderate. TRICUSPID VALVE There is mild pulmonary hypertension. GREAT VESSELS The aortic root is normal in size. The IVC collapses <50% with inspiration. PERICARDIAL EFFUSION There is a trace loculated anterior pericardial effusion. <Conclusion> The Left Ventricle is mildly dilated. There is normal left ventricular wall thickness. The systolic function is severely impaired. Sever Septal and Apical hypokinesis Transmitral Doppler flow pattern is Grade I-abnormal relaxation pattern. Mitral regurgitation is mild to moderate. There is mild pulmonary hypertension.
[2016-05-24] MEDS: Dexmedetomidine HCl 4mcg/ml 100 ML IV PRN ×2 (18:24→23:18)
--- NOTE | 2016-05-24 18:28 | CP.PCM.CON ---
<Kate Medina - Last Filed: 05/24/16 18:11> History of Present Illness - History of Present Illness History of Present Illness: HPI: 65 yo F w h/o COPD, end-stage CM, medical noncompliance was admitted /3 for AECHF and AECOPD. Patient was being treated with IV steroids, levaquin for presumed PNA/bronchitis, lasix for CHF. Patient had been in her usual mental state, received 2 doses 1mg Xanax (1219 and 1451), librium 25mg PO 1509, Percocet 5/325 (1402, 1022). Patient was talking, as per RN, no issues early this afternoon. Suddenly, patient became silent, no sounds heard from her room, RN found patient unresponsive, apnic. ENVIRONMENTAL PROFESSIONAL was called and quickly converted to CODE BLUE at 1738. ACLS protocol was initiated. Patient received one round of CPR and one dose of epinephrine IV. youth nutritional monitor showed v-tach and patient was subsequently cardioverted - 200 joules. Patient soon regained ROSC and intubated. Patient's son is at bedside. Pateint is transferred to ICU on the vent, sedated on precedex drip. PMHx: COPD, EtOH abuse, tobacco abuse, h/o follicular lymphoma s/p chemo, CAD, HTN, arthritis, end-stage cardiomyopathy, NSTEMI SocialHx: active tobacco abuse, chronic etoh abuse FamilyHx: Noncontributory Allergies: Diphenhydramine, ANESTHESIA HomeMeds: Librium, Lasix, Xanax, Ambien, Brovana, Ibuprofen, Motrin, Ultram Review of Systems - Review of Systems Systems not reviewed;Unavailable: Intubated Past Patient History - Infectious Disease Hx of Infectious Diseases: None - Tetanus Immunizations Tetanus Immunization: Up to Date, Unknown - Past Medical History & Family History Past Medical History?: Yes - Past Social History Smoking Status: Current Some Days Smoker - CARDIAC Hx Cardiac Disorders: Yes Hx Congestive Heart Failure: Yes - PULMONARY Hx Chronic Obstructive Pulmonary Disease (COPD): Yes - NEUROLOGICAL Hx Neurological Disorder: Yes (syncope ams) Hx Dizziness: Yes - HEENT Hx HEENT Problems: Yes (eyeglasses) - RENAL Hx Chronic Kidney Disease: No - ENDOCRINE/METABOLIC Hx Diabetes Mellitus Type 1: Yes - HEMATOLOGICAL/ONCOLOGICAL Hx Blood Disorders: Yes (thrombocytopenia) Hx Anemia: Yes (blood transfusion) Hx Cancer: Yes (follicular lymphoma 2007) Hx Chemotherapy: Yes Other/Comment: gastrointestinal ca 2007 - INTEGUMENTARY Hx Dermatological Problems: No (LEFT UPPER ARM IN AND OUT OF PORT.) - MUSCULOSKELETAL/RHEUMATOLOGICAL Hx Arthritis: Yes - GASTROINTESTINAL Hx Diverticulitis: Yes - GENITOURINARY/GYNECOLOGICAL Hx Genitourinary Disorders: No Hx Reproductive Disorders: No - PSYCHIATRIC Hx Emotional Abuse: No Hx Physical Abuse: No Hx Substance Use: No Other/Comment: alcohol abuse - SURGICAL HISTORY Hx Surgeries: Yes Hx Cardiac Catheterization: Yes Hx Coronary Stent: Yes - ANESTHESIA Hx Anesthesia Reactions: Yes (SEE ALLERGIES) Hx Malignant Hyperthermia: No Meds Allergies/Adverse Reactions: Allergies Allergy/AdvReac Type Severity Reaction Status Date / Time diphenhydramine HCl Allergy SHORTNESS Verified 05/22/16 07:02 [From Benadryl] OF BREATH anesthesia Allergy Intermediate RASH Uncoded 05/16/16 08:22 anesthetic agents Allergy Mild ANAPHYLAXIS Uncoded 05/22/16 07:02 - Medications Medications: Current Medications Al Hydrox/Mg Hydrox/Simethicone (Maalox Plus 30 Ml) 15 ml PO Q4 [facility] Last Admin: 05/24/16 14:12 Dose: Not Given Albuterol/Ipratropium (Duoneb 3 Mg/0.5 Mg (3 Ml) Ud) 3 ml IH [id number] [facility] Stop: 06/06/16 14:57 Last Admin: 05/24/16 13:29 Dose: 3 ml Alprazolam (Xanax) 1 mg PO TID PRN; Protocol PRN Reason: Anxiety Last Admin: 05/24/16 14:51 Dose: 1 mg Furosemide (Lasix) 40 mg IVP DAILY [facility] Last Admin: 05/24/16 10:20 Dose: 40 mg Levofloxacin/Dextrose (Levaquin 500mg) 100 mls @ 100 mls/hr IVPB DAILY [facility] Last Admin: 05/24/16 10:20 Dose: 100 mls/hr Dexmedetomidine HCl (Precedex 4 Mcg/Ml (100 Ml)) 100 mls @ 2.903 mls/hr IV .Q24H PRN; Protocol; 0.2 MCG/KG/HR PRN Reason: Agitation Insulin Human Regular (Humulin R Med) 0 units SC ACHS [facility] PRN Reason: Protocol Last Admin: 05/24/16 11:11 Dose: Not Given Megestrol Acetate (Megace) 40 mg PO DAILY [facility] Last Admin: 05/24/16 14:02 Dose: 40 mg Methylprednisolone (Solu-Medrol) 30 mg IVP Q12 [facility] Last Admin: 05/24/16 10:22 Dose: 30 mg Nystatin (Nystatin Oral Susp) 5 ml PO QID [facility] Last Admin: 05/24/16 14:04 Dose: 5 ml Oxycodone/Acetaminophen (Percocet 5/325 Mg Tab) 1 tab PO Q4H PRN PRN Reason: Pain, moderate (4-7) Stop: 05/25/16 21:03 Last Admin: 05/24/16 14:02 Dose: 1 tab Pantoprazole Sodium (Protonix Ec Tab) 40 mg PO 0630 [facility] Last Admin: 05/24/16 10:22 Dose: 40 mg Trazodone HCl (Desyrel) 100 mg PO HS [facility] Last Admin: 05/23/16 21:38 Dose: 100 mg Physical Exam - Constitutional Appears: Other (intubated, sedated) - Head Exam Head Exam: ATRAUMATIC, NORMAL INSPECTION - Eye Exam Eye Exam: EOMI, Normal appearance, PERRL. absent: Scleral icterus Pupil Exam: PERRL - ENT Exam ENT Exam: Mucous Membranes Moist - Neck Exam Neck exam: Positive for: Normal Inspection - Respiratory Exam Respiratory Exam: Clear to Auscultation Bilateral - Cardiovascular Exam Cardiovascular Exam: Tachycardia. absent: JVD - GI/Abdominal Exam GI & Abdominal Exam: Normal Bowel Sounds, Soft. absent: Distended, Guarding, Rigid - Skin Skin Exam: Dry, Intact Results - Vital Signs Recent Vital Signs: Last Vital Signs Temp 98.1 F 05/24/16 16:00 Pulse 67 05/24/16 16:00 Resp 22 05/24/16 16:00 BP 117/60 05/24/16 16:00 Pulse Ox 97 05/24/16 16:00 - Labs Result Diagrams: 05/24/16 07:30 05/24/16 07:30 Labs: Laboratory Results - last 24 hr 05/24/16 07:30 WBC 3.1 L D RBC 2.94 L Hgb 10.1 L Hct 29.8 L MCV 101.4 MCH 34.4 MCHC 33.9 RDW 15.2 H Plt Count 192 MPV 8.8 Sodium 139 Potassium 3.7 Chloride 105 Carbon Dioxide 23 Anion Gap 15 BUN 8 Creatinine 0.5 Est GFR ( Amer) > 60 Est GFR (Non-Af Amer) > 60 Random Glucose 143 H Calcium 8.9 Total Bilirubin 0.6 AST 69 H ALT 40 Alkaline Phosphatase 136 H NT-Pro-B Natriuret Pep 27552 H Total Protein 6.8 Albumin 3.2 Globulin 3.5 Albumin/Globulin Ratio 0.9 L Assessment & Plan - Assessment and Plan (Free Text) Assessment: 65 yo F with severe CM, COPD, active tobacco and EtOH abuse transferred to ICU, intubated after nonresponsive episode, V tach shock x 1 during CODE BLUE Plan: Neuro: Sedated on precedex drip. RAAS goal -3. Maintain normothermia Pulm: PRVC 350/15/100%/5 Will obtain repeat ABG. Titrate to maintain spo2>90, pao2>60 Continue solumedrol and duonebs Q6 CV: Acute CHF exacerbation. 40mg IV lasix x 1. Monitor I&O, renal function 2D ECHO 05/24/2016 shows LVEF 14%, severe septal and apical hypokinesis, Grade I diastolic dysfunction, LA mildly dilated, mild-mod MR, mild pHTN (RVSP 37mmHg) , race loculated anterior pericardial effusion Cardiology evaluation requested. Recs sincerely appreciated Renal: No acute issues. Monitor renal function, I&Os GI: GI ppx, NPO Endo: Maintain euglycemia 140-180 ID: possible underlying bronchitis. DC Levaquin given arrythmia. Start rocephin Procalcitonin Blood, urine, sputum cultures Heme: No signs of bleeding. Monitor DVT/GI ppx: Protonix, NPO - Date & Time Date: 05/24/16 Time: 18:28 <Lila GARCIA,Noel H - Last Filed: 05/24/16 19:11> Meds - Medications Medications: Current Medications Al Hydrox/Mg Hydrox/Simethicone (Maalox Plus 30 Ml) 15 ml PO Q4 [facility] Last Admin: 05/24/16 18:33 Dose: Not Given Albuterol/Ipratropium (Duoneb 3 Mg/0.5 Mg (3 Ml) Ud) 3 ml IH [id number] [facility] Stop: 06/06/16 14:57 Last Admin: 05/24/16 13:29 Dose: 3 ml Furosemide (Lasix) 40 mg IVP DAILY [facility] Last Admin: 05/24/16 10:20 Dose: 40 mg Dexmedetomidine HCl (Precedex 4 Mcg/Ml (100 Ml)) 100 mls @ 2.903 mls/hr IV .Q24H PRN; Protocol; 0.2 MCG/KG/HR PRN Reason: Agitation Last Admin: 05/24/16 18:24 Dose: 2.903 mls/hr Ceftriaxone Sodium (Rocephin 1 Gram Ivpb) 100 mls @ 100 mls/hr IVPB DAILY [facility] PRN Reason: Protocol Potassium Chloride/Dextrose (Potassium Chl 40 Meq In D5w) 1,000 mls @ 100 mls/ hr IV .Q10H [facility] Magnesium Sulfate 2 gm/ Sodium (Chloride) 104 mls @ 102 mls/hr IVPB ONCE ONE Stop: 05/24/16 20:01 Insulin Human Regular (Humulin R Med) 0 units SC ACHS [facility] PRN Reason: Protocol Last Admin: 05/24/16 18:50 Dose: Not Given Methylprednisolone (Solu-Medrol) 30 mg IVP Q12 [facility] Last Admin: 05/24/16 10:22 Dose: 30 mg Nystatin (Nystatin Oral Susp) 5 ml PO QID [facility] Last Admin: 05/24/16 18:33 Dose: Not Given Pantoprazole Sodium (Protonix Inj) 40 mg IVP DAILY [facility] Potassium Chloride (Potassium Chloride Oral Soln) 60 meq PO ONCE ONE Stop: 05/24/16 18:56 Results - Vital Signs Recent Vital Signs: Last Vital Signs Temp 98.1 F 05/24/16 16:00 Pulse 122 H 05/24/16 18:48 Resp 26 H 05/24/16 18:44 BP 111/61 05/24/16 18:44 Pulse Ox 100 05/24/16 18:44 - Labs Result Diagrams: 05/24/16 07:30 05/24/16 18:44 Labs: Laboratory Results - last 24 hr 05/24/16 05/24/16 05/24/16 07:30 18:42 18:44 WBC 3.1 L D RBC 2.94 L Hgb 10.1 L Hct 29.8 L MCV 101.4 MCH 34.4 MCHC 33.9 RDW 15.2 H Plt Count 192 MPV 8.8 pCO2 35 pO2 383.0 H HCO3 21.7 ABG pH 7.40 ABG Total CO2 22.8 ABG O2 Saturation 99.4 H ABG Base Excess -2.6 L ABG Potassium 2.7 L Glucose 178 H Lactate 1.8 Mechanical Rate 15 FiO2 100.0 Tidal Volume 350 PEEP 5 Sodium 139 141.0 139 Potassium 3.7 3.0 L Chloride 105 110.0 H 102 Carbon Dioxide 23 24 Anion Gap 15 16 BUN 8 10 Creatinine 0.5 0.7 Est GFR ( Amer) > 60 > 60 Est GFR (Non-Af Amer) > 60 > 60 Random Glucose 143 H 194 H Calcium 8.9 9.2 Phosphorus 3.5 Magnesium 1.6 L Total Bilirubin 0.6 0.6 AST 69 H 381 H ALT 40 131 H Alkaline Phosphatase 136 H 152 H Lactate Dehydrogenase 2243 H Total Creatine Kinase 81 NT-Pro-B Natriuret Pep 66391 H Total Protein 6.8 7.0 Albumin 3.2 3.3 Globulin 3.5 3.7 Albumin/Globulin Ratio 0.9 L 0.9 L Arterial Blood Potassium 2.7 L Attending/Attestation - Attestation I have personally seen and examined this patient.: Yes I have fully participated in the care of the patient.: Yes I have reviewed all pertinent clinical information: Yes Notes (Text): 05/24/16 19:06 65 y/o F brought to the ICU after the floor team found her to be unresponsive, pulseless and hypoventilating. Upon reviewing records and speaking with the nursing staff, she received Benzodiazapenes + Librium and Percocet in the past 3 hrs which may have caused a depressed respiratory drive. To mention she was also found to have unstable V-Tach for which she was cardioverted and 1 round of cpr before ROSC was achieved. Pt upon arriving had a mental status and was tracking with her eyes which being ventilated . Reviewing her records CHF, COPD narcotic and anxiolytic dependance CXR shows increased pulmonary vascular congestion . Known CHF with depressed LV EF%. Check CBC, CMP, MG, K, Troponins, EKG,Cardiology consult Keep Intubated, ABg reviewed- lower fio2 to 40% PH 7.4 Replete MG > 2 and K>4. Keep sedated on Precedex overnight Continue nebulizers and solumedrol q12 hrs. dvt P - hep sq tid cc time 65 min
--- NOTE | 2016-05-24 18:29 | CP.PCM.PN ---
Subjective - Date & Time of Evaluation Date of Evaluation: 05/24/16 Time of Evaluation: 17:36 - Subjective Subjective: Resident Rapid Response Note for Dr. Winter Sharp Rapid response was called overhead at 5:36PM to room 371-1 and was converted to code blue at 5:38PM. Per RN, patient was shouting and sudden became unresponsive. ACLS protocol was initiated. Patient received one round of CPR and one dose of epinephrine IV. monitoring analyst show v-tach and patient was subsequently received cardioversion of 200 joules. Patient soon regained ROSC and intubated (size 8) by house MD Dr. Lucila Sharp. BP at 5:45Pm was 133/105 with pulse of 77bpm. Patient was transported to ICU and endorsed ICU attending to Dr. Noel Sharp at 5:49PM. Objective - Vital Signs/Intake and Output Vital Signs (last 24 hours): Temp Pulse Resp BP Pulse Ox 98.1 F 67 22 117/60 97 05/24/16 16:00 05/24/16 16:00 05/24/16 16:00 05/24/16 16:00 05/24/16 16:00 Intake and Output: 05/24/16 05/24/16 06:59 18:59 Intake Total 480 800 Output Total 1500 Balance 480 -700 - Medications Medications: Current Medications Al Hydrox/Mg Hydrox/Simethicone (Maalox Plus 30 Ml) 15 ml PO Q4 [facility] Last Admin: 05/24/16 14:12 Dose: Not Given Albuterol/Ipratropium (Duoneb 3 Mg/0.5 Mg (3 Ml) Ud) 3 ml IH [id number] [facility] Stop: 06/06/16 14:57 Last Admin: 05/24/16 13:29 Dose: 3 ml Alprazolam (Xanax) 1 mg PO TID PRN; Protocol PRN Reason: Anxiety Last Admin: 05/24/16 14:51 Dose: 1 mg Furosemide (Lasix) 40 mg IVP DAILY [facility] Last Admin: 05/24/16 10:20 Dose: 40 mg Levofloxacin/Dextrose (Levaquin 500mg) 100 mls @ 100 mls/hr IVPB DAILY [facility] Last Admin: 05/24/16 10:20 Dose: 100 mls/hr Dexmedetomidine HCl (Precedex 4 Mcg/Ml (100 Ml)) 100 mls @ 2.903 mls/hr IV .Q24H PRN; Protocol; 0.2 MCG/KG/HR PRN Reason: Agitation Insulin Human Regular (Humulin R Med) 0 units SC ACHS [facility] PRN Reason: Protocol Last Admin: 05/24/16 11:11 Dose: Not Given Megestrol Acetate (Megace) 40 mg PO DAILY [facility] Last Admin: 05/24/16 14:02 Dose: 40 mg Methylprednisolone (Solu-Medrol) 30 mg IVP Q12 [facility] Last Admin: 05/24/16 10:22 Dose: 30 mg Nystatin (Nystatin Oral Susp) 5 ml PO QID [facility] Last Admin: 05/24/16 14:04 Dose: 5 ml Oxycodone/Acetaminophen (Percocet 5/325 Mg Tab) 1 tab PO Q4H PRN PRN Reason: Pain, moderate (4-7) Stop: 05/25/16 21:03 Last Admin: 05/24/16 14:02 Dose: 1 tab Pantoprazole Sodium (Protonix Ec Tab) 40 mg PO 0630 [facility] Last Admin: 05/24/16 10:22 Dose: 40 mg Trazodone HCl (Desyrel) 100 mg PO HS [facility] Last Admin: 05/23/16 21:38 Dose: 100 mg - Labs Labs: 05/24/16 07:30 05/24/16 07:30 - Constitutional Appears: No Acute Distress - Head Exam Head Exam: ATRAUMATIC, NORMOCEPHALIC - Eye Exam Eye Exam: Normal appearance Additional comments: Pupils dilated - ENT Exam ENT Exam: Mucous Membranes Moist Additional comments: Intubated - Neck Exam Neck Exam: Normal Inspection - Respiratory Exam Respiratory Exam: Clear to Ausculation Bilateral, NORMAL BREATHING PATTERN. absent: Rhonchi, Wheezes - Cardiovascular Exam Cardiovascular Exam: REGULAR RHYTHM, RRR, +S1, +S2. absent: Murmur - GI/Abdominal Exam GI & Abdominal Exam: Soft, Normal Bowel Sounds. absent: Tenderness - Extremities Exam Extremities Exam: Full ROM, Normal Capillary Refill, Normal Inspection. absent : Joint Swelling, Pedal Edema - Neurological Exam Neurological Exam: Alert, Awake - Psychiatric Exam Psychiatric exam: Normal Affect, Normal Mood - Skin Skin Exam: Intact, Warm Assessment and Plan - Assessment and Plan (Free Text) Assessment: s/p Code blue -PMD Dr. Aguilar was notified via voice mail at 6:00PM, returned call at 6:25PM -Patient was signed out to ICU attending Dr. Sharp at 5:49PM -CBC, CMP -Cardiac ISO -EKG -ABG -Ca -Mg
[2016-05-24 18:50] LABS: ABG MECHANICAL RATE 15; ARTERIAL BLOOD GAS HCO3 21.7 mmol/L (21-28); ATERIAL BLOOD GAS PEEP 5
[2016-05-24 18:50] LABS: HEMATOCRIT 31.4 % (36.0-48.0); MEAN CELL VOLUME 100.6 fL (80.0-105.0); MEAN CORPUSCULAR HEMOGLOBIN 34.9 pg (25.0-35.0); MEAN CORPUSCULAR HGB CONC 34.7 g/dl (31.0-37.0); MEAN PLATELET VOLUME 9.2 fl (7.0-11.0); PLATELET COUNT 226 10^3/uL (120.0-450.0); RED CELL DISTRIBUTION WIDTH 15.4 % (11.5-14.5); WHITE BLOOD COUNT 15.8 10^3/ul (4.5-11.0)
[2016-05-24] MEDS ORDERED: Potassium Chloride 40 mEq/30 ml LIQ UD PO ONE (18:55)
[2016-05-24 18:58] LABS: ALB/GLOB RATIO 0.9 (1.1-1.8); ALKALINE PHOSPHATASE 152 U/L (38-133); ALT/SGPT 131 U/L (7-56); AST/SGOT 381 U/L (15-39); BILIRUBIN,TOTAL 0.6 mg/dL (0.2-1.3); BLOOD UREA NITROGEN 10 mg/dL (7-21); CALCIUM 9.2 mg/dL (8.4-10.5); CARBON DIOXIDE 24 mmol/L (21-33); CHLORIDE 102 mmol/L (98-107); GFR AFRICAN-AMERICAN > 60; GLUCOSE,RANDOM 194 mg/dL (70-110); MAGNESIUM 1.6 mg/dL (1.7-2.2); PHOSPHOROUS 3.5 mg/dL (2.5-4.5); SODIUM 139 mmol/L (132-148)
[2016-05-24] MEDS ORDERED: Magnesium Sulfate 2 GM in Sodium Chloride 0.9% 100 ML IVPB ONE (19:00)
[2016-05-24] MEDS ORDERED: Potassium Chl 40mEq & D5W 1,000 ML IV SCH (19:00)
[2016-05-24 19:08] LABS: TROPONIN I 0.02 ng/mL
[2016-05-24 19:34] LABS: ADD MANUAL DIFF? YES
[2016-05-24 20:47] LABS: BAND 9 % (0-2); NEUTROPHIL 79 % (50.0-70.0); PLATELET ESTIMATE NORMAL (NORMAL)
[2016-05-25 01:14] LABS: ALKALINE PHOSPHATASE 154 U/L (38-133); ALT/SGPT 127 U/L (7-56); AST/SGOT 326 U/L (15-39); BILIRUBIN,TOTAL 0.7 mg/dL (0.2-1.3); BLOOD UREA NITROGEN 13 mg/dL (7-21); CALCIUM 9.5 mg/dL (8.4-10.5); CARBON DIOXIDE 25 mmol/L (21-33); CHLORIDE 104 mmol/L (98-107); GFR AFRICAN-AMERICAN > 60; GLUCOSE,RANDOM 177 mg/dL (70-110); SODIUM 139 mmol/L (132-148); TOTAL PROTEIN 7.1 g/dL (5.8-8.3)
[2016-05-25] MEDS: Albuterol-Ipratrop 3 mg / 0.5 (3 ml) UD IH SCH (02:00)
[2016-05-25] MEDS: Insulin Reg-MEDIUM-Coverage SC SCH ×5 (04:25→22:38)
[2016-05-25] MEDS: Alum-Mag Hydrox-Simethicone Susp (30 mL) PO SCH ×6 (04:29→22:45)
[2016-05-25 05:45] LABS: HEMATOCRIT 34.1 % (36.0-48.0); MEAN CELL VOLUME 100.9 fL (80.0-105.0); MEAN CORPUSCULAR HEMOGLOBIN 34.6 pg (25.0-35.0); MEAN CORPUSCULAR HGB CONC 34.3 g/dl (31.0-37.0); MEAN PLATELET VOLUME 9.2 fl (7.0-11.0); PLATELET COUNT 198 10^3/uL (120.0-450.0); RED CELL DISTRIBUTION WIDTH 15.3 % (11.5-14.5)
[2016-05-25 05:53] LABS: ADD MANUAL DIFF? YES
[2016-05-25 06:01] LABS: ALB/GLOB RATIO 0.9 (1.1-1.8); ALKALINE PHOSPHATASE 141 U/L (38-133); ALT/SGPT 119 U/L (7-56); AST/SGOT 220 U/L (15-39); BILIRUBIN,TOTAL 0.6 mg/dL (0.2-1.3); BLOOD UREA NITROGEN 16 mg/dL (7-21); CALCIUM 9.6 mg/dL (8.4-10.5); CARBON DIOXIDE 22 mmol/L (21-33); CHLORIDE 106 mmol/L (98-107); GFR AFRICAN-AMERICAN > 60; GLUCOSE,RANDOM 159 mg/dL (70-110); MAGNESIUM 2.8 mg/dL (1.7-2.2); PHOSPHOROUS 3.1 mg/dL (2.5-4.5); SODIUM 141 mmol/L (132-148); TOTAL PROTEIN 7.3 g/dL (5.8-8.3)
[2016-05-25 06:05] LABS: POTASSIUM 5.5 mmol/L (3.6-5.0)
[2016-05-25 06:16] LABS: TROPONIN I 0.13 ng/mL
[2016-05-25 06:16] LABS: ARTERIAL BLOOD GAS HCO3 22.1 mmol/L (21-28); ARTERIAL BLOOD GAS PH 7.42 (7.35-7.45)
[2016-05-25 06:18] LABS: WHITE BLOOD COUNT 6.8 10^3/ul (4.5-11.0)
[2016-05-25 06:19] LABS: BAND 5 % (0-2); METAMYELOCYTE 1 %; NEUTROPHIL 87 % (50.0-70.0); PLATELET ESTIMATE NORMAL (NORMAL); TOXIC GRANULATION 2+
[2016-05-25] MEDS: Dexmedetomidine HCl 4mcg/ml 100 ML IV PRN ×2 (06:32→20:12)
[2016-05-25] MEDS: Levalbuterol 0.63 MG/3 ML Inhal Soln UD IH SCH ×3 (07:58→20:00)
--- NOTE | 2016-05-25 08:52 | PN ---
DATE: 05/25/2016(620am--710am) SUBJECTIVE: The patient is currently intubated and in the ICU. She is currently sedated. PHYSICAL EXAMINATION: VITAL SIGNS: Temperature is 98.2, pulse 45, respirations 20/20, blood pressure 114/67. HEENT: Normocephalic, atraumatic. No JVD. CARDIOVASCULAR: Positive S1, S2. No S3. LUNGS: Minimal bilateral rhonchi. No wheezing. EXTREMITIES: Mild edema. No cyanosis, no clubbing. GASTROINTESTINAL: Abdomen is soft, nondistended. Bowel sounds are positive. SKIN: No acute rash. NEUROLOGIC: Limited at the present time. PERTINENT LABORATORY DATA: Chest x-ray was done this morning and reviewed. The chest x-ray is a very poor rotated film. I do not appreciate any new or significant change. Arterial blood gas was done on assist control 20, tidal volume 350, FIO2 40%. Results are: PH 7.42, pCO2 34, pO2 of 77. IMPRESSION: 1. Status post ventricular tachycardia arrest. 2. Respiratory failure. 3. Chronic obstructive pulmonary disease. 4. Coronary artery disease. 5. Advanced cardiomyopathy. 6. Mild anemia. PLAN: I did discuss the case with the night nurse at length. I have also reviewed the chart at length. Apparently, at approximately 6 p.m. yesterday, the patient was found unresponsive (by the nurse). A rapid response was then called. Again, I did discuss the case with the night nurse at length and reviewed the chart. Apparently, the initial rhythm was ventricular tachycardia. The patient was subsequently cardioverted and intubated. She then regained her pulse and blood pressure, and was transferred to the medical ICU. As above, the patient is currently ventilated and sedated. I did review the x-ray as above. There are no new or significant changes seen. I have also reviewed the arterial blood gas. The arterial blood gas reveals a normal pH, with a mild increase in the alveolar arterial gradient. I will continue with the current ventilator settings for now. On physical exam, no significant bronchospasm is noted. I will change the DuoNeb treatments to half-strength Xopenex nebulizer treatments - given the above history. Dr. Schulte (cardiology) has been called on the case - given the ventricular tachycardic arrest and severe cardiomyopathy. Hemodynamically, the patient is more stable - compared to yesterday. She remains very critically ill. I will discuss the above with the entire ICU team in the next few moments. I will also discuss the above with Dr. King later this morning. Adam Parker MD cc: [id number] TT: 05/25/2016 08:52:01 Confirmation # [id number] Dictation # [id number] anabell HENRIQUEZ
[2016-05-25] MEDS ORDERED: DOBUTamine 500mg/250ml D5W 250 ML ONE (08:59)
[2016-05-25] MEDS ORDERED: DOBUTamine 500mg/250ml D5W 250 ML IV PRN (08:59)
[2016-05-25] MEDS: MethylPREDNISolone 40 mg Vial IVP SCH ×2 (09:07→22:45)
[2016-05-25] MEDS: cefTRIAXone 1 gm 100 ML IVPB SCH (09:08)
--- NOTE | 2016-05-25 09:11 | PN ---
DATE: 05/24/2016 SUBJECTIVE: The patient is a 65-year-old female who was admitted with severe throat pain, inability to swallow, associated with generalized weakness and shortness of breath. She was seen in the [facility] Room 2 days prior to hospitalization with similar symptoms. She was given a solution including v iscous lidocaine to rinse and spit; however, her symptoms persisted. Therefore, she returned to the Emergency Room and this time is admitted. She is known to have a past medical history positive for a lcoholic cardiomyopathy, congestive heart failure, status post myocardial infarction. She has a hist ory of hypertension, anxiety, bone marrow suppression secondary to alcoholism, nonhealing fracture of the right humerus, and a history of follicular lymphoma in the distant past as well as COPD. The amee good was treated with intravenous antibiotics. She was also being treated with intravenous diuretic s. Her BNP had decreased from 8500 on admission to 3600 this morning. Her white blood cell count is 3.1, hemoglobin and hematocrit are 10.1 and 29.8, platelet count is 192. Sodium is 139, potassium 3 .7, BUN and creatinine are 8 and 0.5 respectively. Her blood pressure is 119/52, heart rate is 72 an d she is afebrile. When seen, she is rather anxious. She needs reassurance that she is receiving he r medication for anxiety. She is also requesting Librium, which she takes at home occasionally, as n eeded and a sleeping pill, which trazodone had been already ordered for her 100 mg to be taken at bed time. The patient was reassured. OBJECTIVE: Her physical exam still reveal rales and rhonchi in both lung dutta. Although her admitting chest x -ray showed no acute disease. PLAN: We are continuing with the current regimen; however, later in the afternoon with her fiance at bedside, the patient became suddenly unresponsive. A rapid response was called. The patient was fo und to be in ventricular tachycardia. She was cardioverted and intubated and transferred to the inte nsive care unit. When I last called the intensive care unit, she appeared to be hemodynamically stab le. Her blood gas good. She remains intubated and stabilized for now and current workup is in progr ess. Baljeet King MD cc: [id number] TT: 05/25/2016 09:10:54 Confirmation # [id number] Dictation # [id number] jn
--- NOTE | 2016-05-25 09:34 | RAD ---
HISTORY: Endotracheal tube placement. Technique: Single view portable semi erect @ 18:07. COMPARISON: May 24, 2016. FINDINGS: LUNGS: No active pulmonary disease. PLEURA: No significant pleural effusion identified, no pneumothorax apparent. CARDIOVASCULAR: No radiographic findings to suggest acute or significant cardiovascular disease. Venous access catheter in stable, satisfactory position. OSSEOUS STRUCTURES: No significant abnormalities. VISUALIZED UPPER ABDOMEN: Normal. OTHER FINDINGS: Low lying in retractile 2, the tip is in the right mainstem bronchus. IMPRESSION: Low lying and tracheal tube which must be retracted at least 3.2 cm. I communicated these critical findings to nursing polyps in the care and management of this individual,Suzie Charles RN at 09:31.
--- NOTE | 2016-05-25 09:40 | RAD ---
HISTORY: Endotracheal tube placement. Technique: Single view portable semi erect @ 05:45. COMPARISON: Multiple serial examinations preceding the most recent study: May 24, 2016. 18:07. Employing similar portable technique performed at FINDINGS: LUNGS: Left lower lobe consolidative changes with air bronchograms more conspicuous on the present study. PLEURA: No significant pleural effusion identified, no pneumothorax apparent. CARDIOVASCULAR: No radiographic findings to suggest acute or significant cardiovascular disease. Venous access catheter in stable, satisfactory position. OSSEOUS STRUCTURES: No significant abnormalities. VISUALIZED UPPER ABDOMEN: Normal. OTHER FINDINGS: Nasogastric tube recently introduced in good position in the stomach. Persistent low lying endotracheal tube. This should be retracted at least 3 cm for optimal placement. IMPRESSION: Poorly positioned endotracheal tube in the right mainstem bronchus. Communication of results: I communicated these critical findings to nursing personnel involved in the care and management of this individual,Suzie Charles RN at 09:31. May 25, 2016.
[2016-05-25] MEDS: Milrinone 20mg/100ml D5W 100 ML IV PRN (10:14)
--- NOTE | 2016-05-25 10:37 | CON ---
DATE: 05/25/2016 HISTORY OF PRESENT ILLNESS: The patient is a 65-year-old woman who presented with general malaise co mplicated by cardiopulmonary arrest secondary to ventricular tachycardia. This required defibrillati on. 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 Her catheterization done in 2012 as part of the workup revealed nonobstructive CAD. Over the past several years, she has been admitted multiple times for alcoholic intoxication and recu rrent CHF. She has responded well with intravenous inotropic therapy in the past. SOCIAL HISTORY: The patient lives at home and has a history of COPD as well. REVIEW OF SYSTEMS: Currently unavailable. PHYSICAL EXAMINATION: GENERAL: The patient is ventilated, sedated. VITAL SIGNS: Blood pressure is 116/68, the heart rate is tachycardic from 100 up to 120s. NECK: Negative JVD. LUNGS: Decreased breath sounds bilaterally. HEART: Reveals S1, S2. EXTREMITIES: Without edema. LABORATORIES: Hemoglobin is 11.7. Chemistries: Troponins went from 0.02-0.13 after her defibrillat ion. Her magnesium was initially 1.6 and is now up to 2.8. The potassium was 3.0 and up to 3.5. IMPRESSION: 1. Cardiopulmonary arrest. 2. Ventricular tachycardia. 3. End-stage dilated cardiomyopathy. 4. Non-ST elevation myocardial infarction after defibrillation. 5. Alcoholic hepatitis. 6. Diabetes mellitus. Given these findings, we will continue her on her IV inotropic therapy. We will need to keep an eye on her magnesium to have it adequately replaced. We will make aggressive attempts to extubate the pa tient if possible. Michael Schulte MD cc: [id number] TT: 05/25/2016 10:36:50 Confirmation # [id number] Dictation # [id number] tn
--- NOTE | 2016-05-25 11:16 | RAD ---
HISTORY: repositioned ETT COMPARISON: . Technique: Single view portable semi erect @ 10:00 Multiple serial examinations preceding the most recent study: May 25, 2016. FINDINGS: LUNGS: Improved aeration of the lungs. PLEURA: No significant pleural effusion identified, no pneumothorax apparent. CARDIOVASCULAR: Cardiomegaly. No evidence of acute, significant cardiovascular disease. OSSEOUS STRUCTURES: Fracture distal right humerus likely chronic. VISUALIZED UPPER ABDOMEN: Normal. OTHER FINDINGS: Satisfactory repositioning of the endotracheal tube. The tip is now approximately 3 cm above the pari. Stable position of additional support apparatus including venous access catheter and nasogastric tube appear IMPRESSION: Satisfactory position of endotracheal tube, of repositioned since the prior study.
[2016-05-25] MEDS: Metoprolol 1 mg/ml Inj IVP SCH ×2 (11:55→17:18)
[2016-05-25] MEDS ORDERED: Metoprolol 1 mg/ml Inj IVP SCH (12:00)
--- NOTE | 2016-05-25 12:03 | PN ---
DATE: 05/25/2016 The patient is seen and examined at bedside. She is comfortable. She is alert and awake, however, a little bit sleepy on Precedex 0.2 mcg per kilogram per hour. She is on pressure support 5/5 with FiO2 of 40%. On that setting, her rapid shallow breathing index is 53. VITAL SIGNS: Blood pressure 112/63, heart rate 50, oxygen saturation 98%, respiratory rate 18. She is on milrinone 0.2 mcg per kilogram per minute, and Precedex, as was mentioned above, 0.2 mcg per kilogram per hour. HEAD AND NECK: Atraumatic. LUNGS: Clear to auscultation bilaterally. HEART: Regular rate and rhythm. S1, S2 normal. ABDOMEN: Soft, nontender, nondistended. MUSCULOSKELETAL: Trace bilateral pedal and ankle edema. NEUROLOGIC: The patient moves all extremities spontaneously, and on command, the patient is following command as well. SKIN: Moist. PSYCHIATRIC: The patient is alert and awake. Chest x-ray: Showed bilateral vascular congestion. LABORATORY DATA: WBC 6.8, hemoglobin 11.7, platelet count 198. Sodium 141, potassium 5.5, chloride 106, carbon dioxide 22. BUN 16, creatinine 0.8, glucose 159. AST 220 down from 326, ALT 119 down from 127, troponin 0.13. MEDICATIONS: Xopenex every 6, Precedex, Lasix 40 mg daily, metoprolol, Maalox, nystatin topical, milrinone drip, Protonix, ceftriaxone, Solu-Medrol 40 mg IV q. 12. ASSESSMENT AND PLAN: This 65-year-old lady who presented with ventricular fibrillation arrest in the setting of severe left ventricular systolic dysfunction with ejection fraction about 10%. The patient was intubated during the code and was transferred to ICU for further management and monitoring. At present time, the patient is in cardiogenic shock requiring inotropic support with milrinone. Afterload reduction is provided with positive pressure ventilation and milrinone and preload reduction provided with diuresis, and PPV. The patient, at present time, is hemodynamically relatively stable. She is following commands and appears to have good muscle strength in both upper extremities. The patient has good cough and gag reflex. She is tolerating pressure support trial very well and will be extubated soon. She does have end- stage dilated cardiomyopathy, most likely secondary to alcohol abuse. Unfortunately, she is not a candidate for transplant, as she, according to Dr. Schulte, has continued to drink alcohol. We will continue to target euvolemia, euglycemia, normothermia, and oxygen saturation more than 90%. We will continue with deep venous thrombosis and gastrointestinal prophylaxis. We will continue with beta-blockers. We will start the patient on CARLOS inhibitors for afterload reduction and wean off milrinone. Addendum: patient successfully extubated. ccm time 40 min Ash Pierson MD cc: [id number] TT: 05/25/2016 12:02:53 Confirmation # [id number] Dictation # [id number] jn MTDD
[2016-05-25] MEDS: Nystatin 100,000 Units/ml Oral Susp 5 ml UD PO SCH ×4 (12:51→22:45)
[2016-05-25 13:32] LABS: BLOOD UREA NITROGEN 20 mg/dL (7-21); CALCIUM 9.5 mg/dL (8.4-10.5); CARBON DIOXIDE 25 mmol/L (21-33); CHLORIDE 105 mmol/L (98-107); GFR AFRICAN-AMERICAN > 60; GLUCOSE,RANDOM 133 mg/dL (70-110); POTASSIUM 5.2 mmol/L (3.6-5.0); SODIUM 141 mmol/L (132-148)
--- NOTE | 2016-05-25 18:06 | CARD ---
APPROVED REPORT EKG Measurement Heart [id number] [id number] <Conclusion> Sinus tachycardia Left axis deviation Left bundle branch block Abnormal ECG
--- NOTE | 2016-05-25 19:05 | PN ---
DATE: 05/25/2016 This is a 65-year-old woman I have known for a few years with a dilated alcoholic cardiomyopathy who recently was admitted to [facility] awake, alert, clear, and talking and underwent a sudden car diac arrest. She is now intubated in intensive care on life support. Case was discussed at length w ith her attending pharmacy intake coordinator of even more years, Dr. Michael Schulte, who knows her well. Obviously, in view of her severe comorbidity she is at risk for such things as failure and arrhythmia and therefor e, that may explain her episode of V-tach yesterday. We will continue to follow closely with cardiol ogy and intensivists and hope for the best overall for state of health. Tripp King MD cc: [id number] TT: 05/25/2016 19:04:16 Confirmation # [id number] Dictation # [id number]
[2016-05-26] MEDS: Metoprolol 1 mg/ml Inj IVP SCH ×2 (01:00→07:06)
[2016-05-26] MEDS: Levalbuterol 0.63 MG/3 ML Inhal Soln UD IH SCH ×4 (01:10→20:15)
[2016-05-26] MEDS: Dexmedetomidine HCl 4mcg/ml 100 ML IV PRN (06:00)
[2016-05-26] MEDS: Alum-Mag Hydrox-Simethicone Susp (30 mL) PO SCH ×6 (07:07→21:26)
--- NOTE | 2016-05-26 08:12 | CP.CCUPN ---
<Kate Medina - Last Filed: 05/26/16 12:01> CCU Subjective - Physician Review Events Since Last Encounter (Free Text): 05/26/16 08:11 Patient seen and examined bedside. No acute events overnight. Doing well on NC since extubation yesterday. Denies CP, abd pain, headache. Patient gets intermittently confused but is able to answer simple ROS questions and consistently follows commands. Critical Care Time Spent (in minutes): 30 CCU Objective - Vital Signs / Intake & Output Vital Signs (Last 4 hours): Vital Signs Temp Pulse Resp BP Pulse Ox 05/26/16 07:48 61 05/26/16 07:36 44 L 34 H 95 05/26/16 07:06 47 L 129/70 05/26/16 07:00 129/70 05/26/16 06:59 55 L 32 H 05/26/16 06:58 52 L 33 H 05/26/16 06:00 97.9 F 57 L 23 108/60 94 L 05/26/16 05:00 66 24 107/48 L 97 Intake and Output (Last 8hrs): Intake & Output 05/25/16 05/26/16 05/26/16 22:59 06:59 14:59 Intake Total 335 542 Output Total 350 450 Balance -15 92 Intake: IV 135 122 Left Forearm 135 80 Right Wrist 42 Left Hand 0 Oral 200 420 Output: Urine 350 450 Urine, Voided 350 450 Other: Voiding Method Indwelling Catheter # Bowel Movements 0 - Physical Exam Head: Positive for: Atraumatic, Normocephalic Pupils: Positive for: PERRL Extroacular Muscles: Positive for: EOMI Conjunctiva: Positive for: Normal Mouth: Positive for: Dry Neck: Positive for: Normal Range of Motion Respiratory/Chest: Positive for: Good Air Exchange, Rhonchi (bilaterally). Negative for: Respiratory Distress, Accessory Muscle Use, Wheezes, Rales, Tachypneic, Tender to Palpation Cardiovascular: Positive for: Regular Rate and Rhythm, Normal S1, S2. Negative for: Murmurs Abdomen: Positive for: Normal Bowel Sounds. Negative for: Tenderness, Distention, Peritoneal Signs Back: Positive for: Normal Inspection Upper Extremity: Positive for: Deformity (chronic right upper extremity deformity). Negative for: Cyanosis, Edema Lower Extremity: Positive for: Normal Inspection. Negative for: Edema Neurological: Positive for: GCS=15, CN II-XII Intact, Speech Normal Skin: Positive for: Warm, Dry, Normal Color. Negative for: Rashes Psychiatric: Positive for: Alert, Oriented x 3, Normal Insight, Normal Concentration - Medications Active Medications: Active Medications Generic Name Dose Route Start Last Admin Trade Name Freq PRN Reason Stop Dose Admin Al Hydrox/Mg Hydrox/Simethicone 15 ml 05/23/16 12:39 05/26/16 07:07 Maalox Plus 30 Ml PO Not Given Q4 BELEM Furosemide 40 mg 05/24/16 10:00 05/25/16 09:06 Lasix IVP 40 mg DAILY BELEM Administration Ceftriaxone Sodium 100 mls @ 100 mls/hr 05/25/16 10:00 05/25/16 09:08 Rocephin 1 Gram Ivpb IVPB 100 mls/hr DAILY BELEM Administration Protocol Dobutamine HCl/Dextrose 250 mls @ 4.355 mls/hr 05/25/16 08:59 05/25/16 09:04 Dobutamine/Dextrose 5% 500mg/250ml IV 4.355 mls/hr .Q24H PRN Administration TITRATE PER PROTOCOL Protocol 2.5 MCG/KG/MIN Milrinone Lactate/Dextrose 100 mls @ 3.484 mls/hr 05/25/16 10:08 05/25/16 10:14 Primacor 20mg/100ml D5w IV 3.484 mls/hr .Q24H PRN Administration TITRATE PER MD ORDER Protocol 0.2 MCG/KG/MIN Dexmedetomidine HCl 100 mls @ 2.903 mls/hr 05/25/16 19:32 05/26/16 06:00 Precedex 4 Mcg/Ml (100 Ml) IV 7.258 mls/hr .Q24H PRN Administration Agitation Protocol 0.2 MCG/KG/HR Insulin Human Regular 0 units 05/23/16 22:00 05/25/16 22:38 Humulin R Med SC Not Given ACHS BELEM Protocol Levalbuterol HCl 0.63 mg 05/25/16 08:00 05/26/16 07:04 Xopenex IH Not Given [id number] BELEM Methylprednisolone 30 mg 05/24/16 10:00 05/25/16 22:45 Solu-Medrol IVP 30 mg Q12 BELEM Administration Metoprolol Tartrate 5 mg 05/25/16 12:00 05/26/16 07:06 Lopressor IVP Not Given Q6 BELEM Nystatin 5 ml 05/23/16 18:00 05/25/16 22:45 Nystatin Oral Susp PO 5 ml QID BELEM Administration Pantoprazole Sodium 40 mg 05/25/16 10:00 05/25/16 09:07 Protonix Inj IVP 40 mg DAILY BELEM Administration Ramipril 2.5 mg 05/25/16 11:45 05/25/16 11:40 Altace PO 2.5 mg DAILY BELEM Administration - Patient Studies Lab Studies: Microbiology Studies 05/24/16 18:08 MRSA Culture (Admit) - Final Naris MRSA NOT DETECTED 05/24/16 18:40 Blood Culture - Preliminary Blood NO GROWTH AFTER 24 HOURS Lab Studies 05/25/16 05/25/16 05/25/16 Range/Units 22:12 14:40 11:56 Sodium 141 (132-148) mmol/L Potassium 5.2 H (3.6-5.0) mmol/L Chloride 105 (98-107) mmol/L Carbon Dioxide 25 (21-33) mmol/L Anion Gap 16 (10-20) BUN 20 (7-21) mg/dL Creatinine 0.8 (0.5-1.4) mg/dL Est GFR ( Amer) > 60 Est GFR (Non-Af Amer) > 60 POC Glucose (mg/dL) 123 H (65-110) mg/dL Random Glucose 133 H (70-110) mg/dL Calcium 9.5 (8.4-10.5) mg/dL Procalcitonin (0.19-0.49) NG/ML Urine Opiates Screen Positive H (NEGATIVE) Urine Methadone Screen Negative (NEGATIVE) Ur Barbiturates Screen Negative (NEGATIVE) Ur Phencyclidine Scrn Negative (NEGATIVE) Ur Amphetamines Screen Negative (NEGATIVE) U Benzodiazepines Scrn Positive H (NEGATIVE) U Oth Cocaine Metabols Negative (NEGATIVE) U Cannabinoids Screen Negative (NEGATIVE) 05/24/16 05/24/16 Range/Units 18:44 16:20 Sodium (132-148) mmol/L Potassium (3.6-5.0) mmol/L Chloride (98-107) mmol/L Carbon Dioxide (21-33) mmol/L Anion Gap (10-20) BUN (7-21) mg/dL Creatinine (0.5-1.4) mg/dL Est GFR ( Amer) Est GFR (Non-Af Amer) POC Glucose (mg/dL) 160 H (65-110) mg/dL Random Glucose (70-110) mg/dL Calcium (8.4-10.5) mg/dL Procalcitonin 1.28 H (0.19-0.49) NG/ML Urine Opiates Screen (NEGATIVE) Urine Methadone Screen (NEGATIVE) Ur Barbiturates Screen (NEGATIVE) Ur Phencyclidine Scrn (NEGATIVE) Ur Amphetamines Screen (NEGATIVE) U Benzodiazepines Scrn (NEGATIVE) U Oth Cocaine Metabols (NEGATIVE) U Cannabinoids Screen (NEGATIVE) Laboratory Results - last 24 hr 05/24/16 05/24/16 05/25/16 16:20 18:44 11:56 Sodium 141 Potassium 5.2 H Chloride 105 Carbon Dioxide 25 Anion Gap 16 BUN 20 Creatinine 0.8 Est GFR ( Amer) > 60 Est GFR (Non-Af Amer) > 60 POC Glucose (mg/dL) 160 H Random Glucose 133 H Calcium 9.5 Procalcitonin 1.28 H Urine Opiates Screen Urine Methadone Screen Ur Barbiturates Screen Ur Phencyclidine Scrn Ur Amphetamines Screen U Benzodiazepines Scrn U Oth Cocaine Metabols U Cannabinoids Screen 05/25/16 05/25/16 14:40 22:12 Sodium Potassium Chloride Carbon Dioxide Anion Gap BUN Creatinine Est GFR ( Amer) Est GFR (Non-Af Amer) POC Glucose (mg/dL) 123 H Random Glucose Calcium Procalcitonin Urine Opiates Screen Positive H Urine Methadone Screen Negative Ur Barbiturates Screen Negative Ur Phencyclidine Scrn Negative Ur Amphetamines Screen Negative U Benzodiazepines Scrn Positive H U Oth Cocaine Metabols Negative U Cannabinoids Screen Negative Fingerstick Blood Sugar Results: 123 Review of Systems - Review of Systems Systems not reviewed;Unavailable: Dementia - Constitutional Constitutional: absent: Chills - EENT Eyes: absent: Change in Vision - Cardiovascular Cardiovascular: absent: Chest Pain, Dyspnea - Respiratory Respiratory: absent: Cough, Dyspnea, Pain on Inspiration - Gastrointestinal Gastrointestinal: absent: Abdominal Pain, Diarrhea, Odynophagia, Vomiting - Genitourinary Genitourinary: absent: Dysuria, Flank Pain - Reproductive: Female Reproductive:Female: Post Menopausal - Menstruation Menstruation: Post Menopausal - Neurological Neurological: absent: Focal Weakness Critical Care Progress Note - Ventilator Checklist PUD Prophalyxis: Yes DVT Prophylaxis: Yes - Prophylaxis GI Prophylaxis GI: PPI - Prophylaxis DVT Prophylaxis DVT: Heparin SQ - Nutrition Nutrition: Nutrition Category Date Time Status Liquid Diet [DIET] Diets 05/25/16 Dinner Ordered Assessment/Plan - Assessment and Plan (Free Text) Assessment: 65 yo F with severe CM, COPD, active tobacco and EtOH abuse transferred to ICU, intubated after nonresponsive episode, V tach shock x 1 during CODE BLUE Plan: Neuro: AAOx1 (self). Occasionally confused but able to follow commands and answer questions consistently Maintain normothermia Pulm: s/p extubation yesterday. Patient was intubated during code blue for airway protection Maintain spo2>90, pao2>60 Solumedrol and Xopenex Q6. Pulm following CV: Cardiogenic shock requiring inotropic support. Continue Milrinone drip, B- blockers (Hold for HR<60) Acute CHF exacerbation. 40mg IV lasix daily as per primary team. Monitor I&O , renal function 2D ECHO 05/24/2016 shows LVEF 14%, severe septal and apical hypokinesis, Grade I diastolic dysfunction, LA mildly dilated, mild-mod MR, mild pHTN (RVSP 37mmHg) , small loculated anterior pericardial effusion Cardiology recs appreciated. Continue meds Patient is s/p unstable V tach arrest requiring defibrillation. Management as per cardiology Renal: No acute issues. Monitor renal function, I&Os GI: GI ppx, FLD Endo: No acute issues. Maintain euglycemia 140-180 ID: Acute bronchitis on rocephin Procalcitonin 1.28 Final urine culture negative Blood cultures negative at 4 days and 24 hours Heme: No signs of bleeding. Monitor DVT/GI ppx: Protonix, FLD, SQH Dispo: Transfer to telemetry - Date & Time Date: 05/26/16 Time: 12:10 <Ash Pierson - Last Filed: 05/26/16 14:41> CCU Objective - Vital Signs / Intake & Output Vital Signs (Last 4 hours): Vital Signs Pulse Resp BP 05/26/16 14:00 87 116/62 05/26/16 13:59 98 H 20 05/26/16 13:00 121/64 05/26/16 12:59 61 38 H 05/26/16 12:06 74 62 H 05/26/16 12:00 68 20 116/63 05/26/16 11:59 68 21 05/26/16 11:30 59 L 16 05/26/16 11:00 110/51 L 05/26/16 10:59 61 28 H 05/26/16 10:48 68 112/61 Intake and Output (Last 8hrs): Intake & Output 05/25/16 05/26/16 05/26/16 22:59 06:59 14:59 Intake Total 335 542 Output Total 350 450 Balance -15 92 Intake: IV 135 122 Left Forearm 135 80 Right Wrist 42 Left Hand 0 Oral 200 420 Output: Urine 350 450 Urine, Voided 350 450 Other: Voiding Method Indwelling Catheter # Bowel Movements 0 - Medications Active Medications: Active Medications Generic Name Dose Route Start Last Admin Trade Name Freq PRN Reason Stop Dose Admin Al Hydrox/Mg Hydrox/Simethicone 15 ml 05/23/16 12:39 05/26/16 12:14 Maalox Plus 30 Ml PO Not Given Q4 BELEM Furosemide 40 mg 05/24/16 10:00 05/26/16 09:13 Lasix IVP 40 mg DAILY BELEM Administration Heparin Sodium (Porcine) 5,000 units 05/26/16 12:15 05/26/16 12:13 Heparin SC Not Given Q12 BELEM Protocol Ceftriaxone Sodium 100 mls @ 100 mls/hr 05/25/16 10:00 05/26/16 09:13 Rocephin 1 Gram Ivpb IVPB 100 mls/hr DAILY BELEM Administration Protocol Milrinone Lactate/Dextrose 100 mls @ 3.484 mls/hr 05/25/16 10:08 05/26/16 10:48 Primacor 20mg/100ml D5w IV 3.484 mls/hr .Q24H PRN Administration TITRATE PER MD ORDER Protocol 0.2 MCG/KG/MIN Insulin Human Regular 0 units 05/23/16 22:00 05/26/16 12:13 Humulin R Med SC Not Given ACHS BELEM Protocol Levalbuterol HCl 0.63 mg 05/25/16 08:00 05/26/16 13:09 Xopenex IH Not Given [id number] PENDING SALE TO [facility] Methylprednisolone 20 mg 05/26/16 10:00 05/26/16 09:35 Solu-Medrol IVP Not Given Q12 PENDING SALE TO [facility] Nystatin 5 ml 05/23/16 18:00 05/26/16 09:27 Nystatin Oral Susp PO Not Given QID [facility]END[facility] TO [facility] Pantoprazole Sodium 40 mg 05/25/16 10:00 05/26/16 09:13 Protonix Inj IVP 40 mg DAILY [facility] Administration Ramipril 2.5 mg 05/25/16 11:45 05/26/16 09:28 Altace PO Not Given DAILY BELEM - Patient Studies Lab Studies: Microbiology Studies 05/24/16 18:08 MRSA Culture (Admit) - Final Naris MRSA NOT DETECTED 05/24/16 18:40 Blood Culture - Preliminary Blood NO GROWTH AFTER 24 HOURS Lab Studies 05/25/16 05/25/16 Range/Units 22:12 14:40 POC Glucose (mg/dL) 123 H (65-110) mg/dL Urine Opiates Screen Positive H (NEGATIVE) Urine Methadone Screen Negative (NEGATIVE) Ur Barbiturates Screen Negative (NEGATIVE) Ur Phencyclidine Scrn Negative (NEGATIVE) Ur Amphetamines Screen Negative (NEGATIVE) U Benzodiazepines Scrn Positive H (NEGATIVE) U Oth Cocaine Metabols Negative (NEGATIVE) U Cannabinoids Screen Negative (NEGATIVE) Laboratory Results - last 24 hr 05/25/16 05/25/16 14:40 22:12 POC Glucose (mg/dL) 123 H Urine Opiates Screen Positive H Urine Methadone Screen Negative Ur Barbiturates Screen Negative Ur Phencyclidine Scrn Negative Ur Amphetamines Screen Negative U Benzodiazepines Scrn Positive H U Oth Cocaine Metabols Negative U Cannabinoids Screen Negative Critical Care Progress Note - Nutrition Nutrition: Nutrition Category Date Time Status Liquid Diet [DIET] Diets 05/26/16 Dinner Ordered Addendum Addendum: 05/26/16 14:35 patient was seen, examined and discussed with Dr. Medina at bedside. her note reflects my exam, assessment and plan, except as below. Meds/Labs/ONE reviewed. 65 yo female with end stage cardiomyopathy, EF 10-15%, was admitted with vfib arrest and resp failure. Was stabilzied with inotropic support (on milrinone), extubated yesterday. ACEI for afterload reduction, diuresis. bb-ers ( temporarily held as patient mildly bradycardic due to concomittant use of precedex, which will be d/c-ed soon), statins and aspirin. EPI consult was requested for consideration of defibrillator (Dr. Krishnan). Dr. Schulte is following as well ccm time 40 min
[2016-05-26] MEDS: Insulin Reg-MEDIUM-Coverage SC SCH ×4 (08:17→21:25)
[2016-05-26] MEDS: cefTRIAXone 1 gm 100 ML IVPB SCH (09:13)
[2016-05-26] MEDS: Nystatin 100,000 Units/ml Oral Susp 5 ml UD PO SCH ×5 (09:13→21:26)
[2016-05-26] MEDS: MethylPREDNISolone 40 mg Vial IVP SCH ×3 (09:14→21:29)
--- NOTE | 2016-05-26 09:16 | PN ---
DATE: 05/26/2016(620AM--710AM) SUBJECTIVE: The patient is now extubated and remains in the ICU. She appears comfortable at rest. She is somewhat confused. PHYSICAL EXAMINATION: VITAL SIGNS: Temperature is 97.9, pulse 47, respirations 20, blood pressure 129 /70. Oxygen saturation on nasal cannula is 95-96%. HEENT: Normocephalic, atraumatic. No JVD. CARDIOVASCULAR: Positive S1, S2. No S3. LUNGS: Minimal rhonchi. No wheezing. EXTREMITIES: Mild edema. No cyanosis, no clubbing. Calves are nontender to palpation. GASTROINTESTINAL: Abdomen is soft, nontender, nondistended. Bowel sounds are positive. SKIN: No acute rash. NEUROLOGIC: Limited at the present time. PERTINENT LABORATORY DATA: Chest x-ray was done this morning and reviewed. There is no significant change from the previous film. Arterial blood gas was ordered for this morning -- not in the computer at the present time. IMPRESSION: 1. Ventricular tachycardia arrest. 2. Respiratory failure. 3. Chronic obstructive pulmonary disease. 4. Coronary artery disease. 5. Advanced cardiomyopathy. 6. Mild anemia. PLAN: The patient remains in the ICU. She is now extubated. She appears comfortable at rest. She is somewhat confused. I did discuss the case with the night nurse at length. Other than the confusion, the night nurse stated that the patient had a very good night. I did review the x-ray as above. There is no significant change from the previous film. Oxygen saturation on nasal cannula is currently 95%-96%. On physical exam, there is certainly less bronchospasm noted. I will continue with the current nebulizer treatments and decrease the intravenous steroids this morning. I would continue with the cardiology evaluation. Input by Dr. Schulte is noted. Clinical status of the patient is certainly improved -- compared to a few days ago. However, again, the overall status/prognosis of this patient is poor. I will discuss the above with the entire ICU team in the next few moments. I will also discuss the above with Dr. King later this morning. Adam Parker MD cc: [id number] TT: 05/26/2016 09:15:26 Confirmation # [id number] Dictation # [id number] MTDD
--- NOTE | 2016-05-26 09:26 | PQF CHF ---
This form is a permanent part of the medical record Clarification of your documentation is requested to better reflect the severity of illness and intensity of treatment of your patient. Indicators present Hx recurrent CHF, on IV Milrinone. ECHO- severely impaired systolic function. Please Clarify type & severity of CHF POA [x] Diagnosis of CHF and/or history of CHF [x] BNP > 200 [] Imaging Finding of Pulmonary Edema /Pleural Effusions [] Fluid/Volume Overload [] Pitting edema [x] Ejection Fraction < 40% (Indicative of Systolic Heart Failure) [] Ejection Fraction > 40% (Indicative of Diastolic Heart Failure) [x] Dyspnea / Orthopenea / Paroxysmal Nocturnal Dyspnea [] Other: Location in the medical record that reflects the above clinical findings: [x] Card consult Treatment Provided: []IV Primacor PHYSICIAN'S RESPONSE Based on your medical judgment of the clinical indicators outlined above, are you treating this patient for a known or suspected: [] Acute CHF [] Systolic [] Diastolic [] Combined [] Chronic CHF [] Systolic [] Diastolic [] Combined [] Acute on Chronic CHF []Systolic [] Diastolic [] Combined [] CHF due hypertension [] Acute systolic []Chronic systolic [] Acute/ chronic systolic [] Other, please indicate: [] [] If Unable to Determine, please check the box, sign and date. Present On Admission (POA) Indicator: [] Present at the time of admission [] Not present at the time of admission [] Clinically Undetermined In responding to this query, please exercise your independent professional judgment. The fact that a question is asked does not imply that any particular answer is desired or expected. Thank you for your clarification on this documentation. If you have any questions please call:[ ][phone] * Thank you, [ ]Lynn Worthington RN [employer] [place]
--- NOTE | 2016-05-26 10:18 | PN ---
DATE: 05/26/2016 The patient is extubated. She is awake, responds to questions. Can move all 4 extremities, but comp lains of weakness diffusely. On physical exam, blood pressure is 108/52, the heart rate is in the 50s, sinus bradycardia. NECK: Negative JVD. LUNGS: Decreased breath sounds bilaterally. HEART: Reveals S1, S2. EXTREMITIES: Without edema. LABORATORIES: Hemoglobin is 11.7. Chemistries: Potassium is 5.2, BUN and creatinine are unremarkab le. IMPRESSION: 1. Status post cardiac arrest secondary to ventricular tachycardia. 2. 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 3. Borderline elevated troponin secondary to cardiac arrest. 4. History of nonobstructive coronary artery disease. 5. Chronic obstructive pulmonary disease. Given these findings, we will continue her on her milrinone. Will DC her Lopressor, given her bradycardia. Will add CARLOS inhibitor. Michael Schulte MD cc: [id number] TT: 05/26/2016 10:17:32 Confirmation # [id number] Dictation # [id number] shonna
[2016-05-26] MEDS: Milrinone 20mg/100ml D5W 100 ML IV PRN (10:48)
--- NOTE | 2016-05-26 11:29 | RAD ---
HISTORY: follow up COMPARISON: 05/25/2016 FINDINGS: LUNGS: No active pulmonary disease. PLEURA: No significant pleural effusion identified, no pneumothorax apparent. CARDIOVASCULAR: Normal. OSSEOUS STRUCTURES: No significant abnormalities. VISUALIZED UPPER ABDOMEN: Normal. OTHER FINDINGS: None. IMPRESSION: No active disease.
[2016-05-26] MEDS ORDERED: Metoprolol 1 mg/ml Inj IVP SCH (12:00)
[2016-05-27] MEDS: Levalbuterol 0.63 MG/3 ML Inhal Soln UD IH SCH ×4 (01:15→19:16)
[2016-05-27] MEDS: Alum-Mag Hydrox-Simethicone Susp (30 mL) PO SCH ×6 (04:00→20:34)
[2016-05-27] MEDS: Insulin Reg-MEDIUM-Coverage SC SCH ×4 (07:30→21:31)
--- NOTE | 2016-05-27 08:55 | PN ---
DATE: 05/27/2016(615AM--705AM) SUBJECTIVE: The patient appears comfortable this morning. She is not short of breath at rest. She is very confused. PHYSICAL EXAMINATION: VITAL SIGNS: Last temperature recorded 97.9. Pulse on the monitor is 84, respiratory rate 18/20, blood pressure 145/77. Last oxygen saturation -- measured on nasal cannula -- 94%. HEENT: Normocephalic, atraumatic. NECK: No JVD. CARDIOVASCULAR: Positive S1, S2. No S3. LUNGS: Minimal bilateral rhonchi. No wheezing. EXTREMITIES: Mild edema. No cyanosis, no clubbing. Calves are nontender to palpation. GASTROINTESTINAL: Abdomen is soft, nontender, nondistended. Bowel sounds are positive. SKIN: No acute rash. NEUROLOGIC: Limited at the present time. IMPRESSION: 1. Ventricular tachycardia arrest. 2. Respiratory failure. 3. Chronic obstructive pulmonary disease. 4. Coronary artery disease. 5. Advanced cardiomyopathy. 6. Mild anemia. 7. Encephalopathy. PLAN: The patient remains in the ICU. She is comfortable and not short of breath this morning. She is, however, very confused. I did discuss the case with the night nurse at length. The night nurse stated that the patient has been confused all night and is refusing her medications and respiratory treatments. On physical exam, only minimal bronchospasm is noted. In addition , there is no significant alveolar arterial gradient. I will continue with the current nebulizer treatments and low-dose intravenous steroids for now. I will also continue with the aspiration precautions. I would continue with the cardiology evaluation -- as per Dr. Schulte. His input is noted. At this point in time, I would recommend a psychiatry evaluation for this patient. I will discuss the above with the entire ICU team in the next few moments. I will also discuss the above with the attending physician later this morning. Adam Parker MD cc: [id number] TT: 05/27/2016 08:53:42 Confirmation # [id number] Dictation # [id number] [email or web address]
--- NOTE | 2016-05-27 09:05 | PN ---
DATE: 05/27/2016 SUBJECTIVE: The patient is resting in bed with no new complaints this morning. No complaints of genaro rtness of breath, no cough, no wheezing, no chest congestion. The patient is refusing blood work as well as having her temperature checked. She is on nasal cannula O2 at this time and did well overnig ht. PHYSICAL EXAMINATION: VITAL SIGNS: Her temperature is 97, pulse is 93, respirations are 18 and her BP is 145/77. SKIN: Warm and dry. HEENT: Head is atraumatic, normocephalic. Eyes reactive to light. Ears, nose and throat seemed to be within normal limits. NECK: Supple. No JVD, no thyroid enlargement, no lymph nodes. CARDIOVASCULAR: Heart has a regular rate and rhythm. Normal S1, S2. LUNGS: Reveal rare rhonchi at the bases. ABDOMEN: Soft, decreased bowel sounds. GENITALIA AND RECTAL: Deferred. MUSCULOSKELETAL: No joint deformities. EXTREMITIES: Reveal no significant edema. NEUROLOGIC: The patient seemed to be grossly intact. LABORATORY DATA: Chest x-ray on 05/26/2016 reveals no active lung disease. The patient has a white co unt is 6.8, hemoglobin is 11.7, hematocrit 34.1 with platelets of 198,000. Sodium is 141, potassium 5.2, chloride 105, CO2 of 25 with a BUN of 20, creatinine of 0.8 and a glucose of 123. IMPRESSION: The patient has cardiomyopathy and is status post ventricular fibrillation arrest. The patient has a history of chronic obstructive pulmonary disease as well as coronary artery disease and ETOH abuse. The patient is noted to have an automatic implantable cardioverter defibrillator as annika l. PLAN: We will continue with Lasix for appropriate diuresis. The patient is getting milrinone as wel l as Rocephin and Solu-Medrol. It is noted that she is getting Xopenex as a bronchodilator. We will continue with aggressive pulmonary toilet and continue to support her with O2 via nasal cannula as n eeded. Roscoe Reynolds MD cc: [id number] TT: 05/27/2016 09:04:36 Confirmation # [id number] Dictation # [id number] jn
[2016-05-27] MEDS: MethylPREDNISolone 40 mg Vial IVP SCH ×2 (09:11→21:35)
[2016-05-27] MEDS: cefTRIAXone 1 gm 100 ML IVPB SCH (09:14)
[2016-05-27] MEDS: Nystatin 100,000 Units/ml Oral Susp 5 ml UD PO SCH ×4 (09:14→21:32)
--- NOTE | 2016-05-27 15:59 | CON ---
DATE: 05/27/2016 CHIEF COMPLAINT: Evaluation for hypoxic brain injury. HISTORY OF PRESENT ILLNESS: This is a 65-year-old woman with severe cardiomyopathy with an ejection fraction of 14, COPD, active tobacco and ETOH abuse, history of dilated cardiomyopathy secondary to c hronic ETOH use, who is status post ventricular fibrillation arrest and was intubated in the ICU, had a V-tach shock x 1 during Code Blue and return of spontaneous circulation was achieved and was monit ored in the ICU. Currently, she is extubated and on the medical floor. She is doing much better, fo llowing simple commands, but seems more confused. She is on a milrinone drip for cardiogenic shock. Her echo showed left ventricular ejection fraction of 14% with severe septal and apical hypokinesis, a grade I diastolic dysfunction, LA mildly dilated with [id number] MR and mild pulmonary hyper tension, and a small loculated pericardial effusion. Cardiology is on board. The patient's unstable V-tach arrest required defibrillation per cardiology and management is occurring through cardiology. The patient is stable. The patient is on antibiotics for an underlying pneumonia. Her blood press ures are stable. Prolactin was 1.28. Blood cultures have been negative so far. Currently, she is f ollowing simple commands and has generalized weakness but moving all extremities, slow to respond to questions. PAST MEDICAL HISTORY: History of severe cardiomyopathy, likely related to ETOH abuse, COPD, active t obacco and ETOH abuser. SOCIAL HISTORY: Smokes and drinks daily. REVIEW OF SYSTEMS: A 14-point review of systems was negative except for the HPI. FAMILY HISTORY: Noncontributory. ALLERGIES: ALLERGIC TO DIPHENHYDRAMINE AND ANESTHETIC AGENTS. PHYSICAL EXAMINATION: VITAL SIGNS: Temperature afebrile, pulse rate of 83, blood pressure 154/74, respiratory rate of 20, oxygen saturation 98% on nasal cannula. GENERAL: The patient is sitting up in bed, in no acute distress. HEENT: Atraumatic, normocephalic. PERRLA. Extraocular muscles intact. NECK: Supple, no JVD, no adenopathy noted. LUNGS: Clear to auscultation. No adventitious sounds. HEART: S1, S2, regular rate and rhythm. No murmurs, rubs, or gallops. LUNGS: Decreased breath sounds at the bases, scattered rhonchi. ABDOMEN: Soft, nontender, nondistended. Bowel sounds are present. EXTREMITIES: No clubbing, no cyanosis. Peripheral pulses 2+ felt bilaterally. NEUROLOGIC: The patient is alert, oriented to self, not much of month or year. Recall after 5 minut es is 0/3. Poor attention span, slow thought process. Cranial nerves II-XII are intact. Speech is hypophonic, but no aphasia noted. MOTOR: Moving all extremities equally, but no pronator drift seen. SENSORY: Withdraws to localized noxious stimulus. Light touch is intact. Proprioception is intact. DTRs are 1+ throughout. COORDINATION: Deferred for now. GAIT: Deferred for now. LABORATORY DATA: Sodium is 141, potassium 5.2, chloride 105, carbon dioxide 25, BUN of 20, creatinin e 0.8. Random glucose 133. ASSESSMENT AND PLAN: This is a 65-year-old woman with a history of severe chronic obstructive pulmon caio disease, chronic smoker, chronic ETOH abuse, history of end-stage dilated cardiomyopathy likely s econdary to alcohol with a left ejection fraction on 14% with severe septal and apical hypokinesis se en on the echo, is status post ventricular fibrillation and ventricular tachycardia x 1, with return of spontaneous circulation. Since then she is extubated and on the telemetry floor being managed for underlying acute congestive heart failure exacerbation, dilated cardiomyopathy as well as acute bron chitis on antibiotics. I was consulted for her mental status. 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 At this time, recommend: 1. Monitor electrolytes and correct accordingly. 2. Continue to keep her blood pressures with milrinone elevated between at least 120-130 mmHg. 3. Aspirin 81 mg 20 mg p.o. daily for stroke prevention. 4. Avoid nighttime interruptions. orientation throughout the day. 5. Will definitely get an MRI of the brain without contrast to assess for any acute intracranial abn ormalities. At this time, continue with physical and occupational therapy. The patient will need acute rehabilit ation as well as cardiac rehab and continue gastrointestinal and deep vein thrombosis prophylaxis. Thank you for this consult. Cody Cronin MD cc: [id number] TT: 05/27/2016 15:57:55 Confirmation # [id number] Dictation # [id number] dn
--- NOTE | 2016-05-27 16:20 | CT ---
PROCEDURE: CT HEAD WITHOUT CONTRAST. HISTORY: ams, 4d post arrest COMPARISON: 01/06/2016 TECHNIQUE: Axial computed tomography images were obtained through the head/brain without intravenous contrast. Radiation dose: Total exam DLP = 725 mGy-cm. This CT exam was performed using one or more of the following dose reduction techniques: Automated exposure control, adjustment of the mA and/or kV according to patient size, and/or use of iterative reconstruction technique. FINDINGS: HEMORRHAGE: No intracranial hemorrhage. BRAIN: No mass effect or edema. There is mild atrophy. The brain parenchyma is normal VENTRICLES: Unremarkable. No hydrocephalus. CALVARIUM: Unremarkable. PARANASAL SINUSES: Unremarkable as visualized. No significant inflammatory changes. MASTOID AIR CELLS: Unremarkable as visualized. No inflammatory changes. OTHER FINDINGS: None. IMPRESSION: No acute intracranial findings
--- NOTE | 2016-05-27 17:37 | PN ---
DATE: 05/27/2016 REASON FOR DICTATION: Covering Dr. Michael Schulte. REASON FOR CONSULTATION AND FOLLOWUP: Coronary artery disease status post a VFib arrest, respiratory failure, advanced cardiomyopathy. BRIEF CLINICAL HISTORY: This is a 65-year-old female with history of ventricular tachycardia, respir atory failure, COPD, chronic coronary artery disease, advanced cardiomyopathy, status post successful ly extubated, altered mental status, encephalopathy, now transferred to the floor. Denies any chest pain, shortness of breath, any palpitation. Family is at the bedside. PHYSICAL EXAMINATION: VITAL SIGNS: Temperature afebrile, heart rate 83, blood pressure 145/77. HEENT: PERRLA. Extraocular muscles intact. NECK: Supple. No carotid bruit. No thyromegaly. CHEST: Clear to auscultation. HEART: S1, S2 regular. ABDOMEN: Soft. EXTREMITIES: Clubbing and cyanosis negative. BLOOD WORKUP: WBC 6.8, hemoglobin 11.7, hematocrit 34.1, platelet count 198. Chemistry shows sodium 141, potassium 5.____, chloride 105, carbon dioxide 25, anion gap of 16, BUN 20, creatinine 0.8. IMPRESSION: Status post cardiopulmonary arrest, ventricular tachycardia requiring defibrillation, en d-stage cardiomyopathy, [id number] myocardial infarction, alcoholic hepatitis. Diabetes, status post intubated, now successfully extubated. Now is in telemetry. RECOMMENDATION: Continue milrinone, continue aspirin. Increase the Ramipril (CARLOS inhibitor). Add C oreg. Continue diuretics. Will add low dose digoxin. The patient had echocardiography done on 06/2016 that showed ejection fraction severely decreased at 14-15%, moderate mitral regurgitation, mil d pulmonary hypertension, right ventricular systolic pressure of 37. We will add digoxin. We will a dd Coreg. Increase CARLOS inhibitors. Will follow with you and turn over the care on Sunday to Dr. Iva Schulte. Thank you, Dr. King, for providing the opportunity in taking care of this patient. Waldo Ortega MD cc: [id number] TT: 05/27/2016 17:37:02 Confirmation # [id number] Dictation # [id number] mn
[2016-05-27] MEDS: Milrinone 20mg/100ml D5W 100 ML IV PRN (19:08)
[2016-05-28] MEDS: Alum-Mag Hydrox-Simethicone Susp (30 mL) PO SCH ×6 (02:42→20:50)
--- NOTE | 2016-05-28 05:55 | CON ---
DATE: 05/27/2016 PHYSICIAN REQUESTING CONSULT: Dr. Michael Schulte. REASON FOR EP EVALUATION: 1. History of VF. 2. Dilated cardiomyopathy, ETOH induced cardiomyopathy. 3. Bradycardia. Thank you very much for this consultation. HISTORY OF PRESENT ILLNESS: The patient is a 65-year-old female with past medical history significant for alcoholic cardiomyopathy, EF of less than 15%, COPD, congestive heart failure, who presents to the Emergency Department initially complaining of generalized weakness for the past 3 days prior to admission. The patient had not been feeling well, had decreased p.o. intake as. Per her partner, who I had an extensive conversation with, Mr. Nickolas Jarquin, phone number [phone], the patient has had episodes of altered mental status as well. She lacked her baseline level of coherency. The patient was admitted for further evaluation and management. With her partner present, patient became increasingly altered at which point patient went into VF arrest, underwent CPR and subsequent shock, and stabilization in the ICU. I was asked to see her here in the ICU for further evaluation and management. As per the partner, patient continues to drink, albeit not as heavy as she did and continues to smoke despite counseling not to. She does not take medications. The patient has poor functional status and is able to walk limited distances. In addition, the patient has a chronic fracture of her right arm, which is displaced and remains displaced. Secondary to operative anesthesia issues, this cannot be resolved. At the time of evaluation, the patient only gives monosyllabic answers, stares off into space, at times appears to irritable. Responses are at times appropriate. Does take long periods for thought and thought forming and vocalization. PAST MEDICAL HISTORY: Significant for tobacco use, COPD, heart failure, nonobstructive coronary disease, altered mental status, history of syncope, history of follicular lymphoma, history of receiving chemotherapy, gastric cancer. FAMILY HISTORY: Noncontributory. SOCIAL HISTORY: Positive. As mentioned previously, continues to drink alcohol daily. ALLERGIES: ANESTHESIA. DIPHENHYDRAMINE. ALLERGY TO UNKNOWN ANESTHTIC AGENT. LABORATORY DATA: On review of relevant lab work, patient had a white count of 6.8, H and H of 11.7 and 34.1, platelets of 198. The patient with potassium 4.0. Currently, sodium 139, BUN and creatinine of 13 and 0.7. The patient was noted to have intermittent episodes of hypokalemia, currently with potassium as low at 3.0. It is unclear whether she was hypokalemic during her event. Initially documented potassium is 4.4. ALT and AST is 30 and less than 6, BNP on presentation was 8570, had gone up to 36,000 during her ICU admission. Albumin 3.5. On review of telemetry strips patient clearly was in VF on 05/24 at 5:40 p.m. Paddles were applied, shock was applied, subsequent normal sinus rhythm followed by sinus tachycardia is seen. During her hospitalization here patient does have episodes of marked sinus bradycardia. This was 05/22/2016. The heart rate was 48. There is an underlying left bundle branch block type pattern with repolarization abnormalities. Subsequently, on 05/24 at 6:00 following getting shocked for VF, there appears to be sinus tachycardia at 145 beats per minute. The aforementioned left bundle branch block type pattern is seen. On telemetry, there are episodes of what appears to be sinus tachycardia with a left bundle branch block giving a wide complex tachycardia appearance, but clearly left bundle branch in morphology. PHYSICAL EXAM: VITAL SIGNS: Blood pressure is 146/72, mean arterial blood pressure is 101, respiratory rate of 27. GENERAL: She is a debilitated, very thin, sick appearing female in no acute distress. Only able to give 1 word answers, difficulty making eye contact, stares off into space, unwilling to keep her nasal cannula on, refusing medications. HEENT: Head is normocephalic, atraumatic. There is facial muscle wasting and twitching of her orbicularis rebecca muscle. Mucous membranes appear moist. NECK: Supple, very thin. There is evidence of jugular venous distention and pulsations. CHEST: Clear to auscultation bilaterally. CARDIOVASCULAR: Regular rate and rhythm. S1, S2. PMI is displaced past the midclavicular line. There is a sternal heave. The patient has significant skeletal muscle wasting as well. ABDOMEN: Soft, nontender, nondistended, positive bowel sounds. EXTREMITIES: No cyanosis, clubbing or edema. As mentioned previously, there is a displaced fracture of the right mid humerus. OBJECTIVE DATA: A 2D echocardiogram which was done on 05/24/2016 shows an ejection fraction of 14%. Left ventricle is mildly dilated with normal LV thickness, systolic function is severely impaired, severe septal and apical hypokinesis. Mitral regurgitation is mild to moderate. Mild pulmonary hypertension is also seen. ASSESSMENT AND PLAN: 1. History of VF for unclear reasons. The patient had altered mental status. Initial blood gases did show some degree of acidosis likely secondary to global metabolic derangement in the setting of alcoholic cardiomyopathy. At this point , the patient is stable here in the Emergency Department. The patient has been trialed on sparing doses of beta blockers given her history of bradycardia. Other heart failure medications are being up titrated if patient is able to take p.o. medications. I had tried to have a conversation with the patient. At this point, that is not possible. Her significant other has been contacted and extensive conversations were had with him. At this point, the patient would not be an ideal candidate for a defibrillator. She continues to engage in abusive behaviors. It is unclear what her baseline mental status will be, compliance with heart medication (antiarrhythmics) are likely going to be very unpredictable. Her functional status is poor. At this point, I would not recommend a defibrillator insertion. We will continue to watch her closely. In theory if there is significant bradycardia off of rate slowing agents, we may consider a permanent pacemaker for heart rate support. At this point, the patient has not had any recent episodes of bradycardia. Pacemaker insertion in and of itself may be difficult given her prior reaction to sedation and anesthesia. It is unclear whether she would want or desire a pacemaker either. We will continue to watch her closely. I am certainly happy to be reconsulted as her case unfolds here in the hospital. 2. Dilated cardiomyopathy, likely secondary to ETOH abuse. At this point, she engages in drinking heavily; this is the primary issue. 3. Bradycardia, which initially was documented has not been re-documented recently, would again treat conservatively at this point. If she demonstrates that she can and does become bradycardic, we would offer a pacemaker. Greater than 90 minutes were spent in patient evaluation and discussion with family, as well as the nursing staff. Thank you for allowing me to participate in the care of your patient. Please do not hesitate to call with any questions in regard to her care. Frantz Coleman MD cc: [phone] TT: 05/27/2016 10:06:48 Confirmation # [id number] Dictation # [id number] jn 05/28/2016 04:54:18 [email or web address]
[2016-05-28 07:44] LABS: ADD MANUAL DIFF? NO
[2016-05-28 07:49] LABS: GRAN # 7.74 (1.4-6.5); GRAN % 91.5 % (50.0-68.0); HEMATOCRIT 41.6 % (36.0-48.0); LYMPH # 0.4 (1.2-3.4); LYMPH % 4.9 % (22.0-35.0); MEAN CELL VOLUME 103.5 fL (80.0-105.0); MEAN CORPUSCULAR HEMOGLOBIN 34.6 pg (25.0-35.0); MEAN CORPUSCULAR HGB CONC 33.4 g/dl (31.0-37.0); MEAN PLATELET VOLUME 9.6 fl (7.0-11.0); MONO # 0.3 (0.1-0.6); MONO % 3.6 % (1.0-6.0); PLATELET COUNT 271 10^3/uL (120.0-450.0); RED CELL DISTRIBUTION WIDTH 15.4 % (11.5-14.5); WHITE BLOOD COUNT 8.5 10^3/ul (4.5-11.0)
[2016-05-28] MEDS: Levalbuterol 0.63 MG/3 ML Inhal Soln UD IH SCH ×3 (07:53→19:56)
[2016-05-28 08:06] LABS: ALB/GLOB RATIO 1.1 (1.1-1.8); ALKALINE PHOSPHATASE 130 U/L (38-133); ALT/SGPT 79 U/L (7-56); AST/SGOT 80 U/L (15-39); BILIRUBIN,TOTAL 0.9 mg/dL (0.2-1.3); BLOOD UREA NITROGEN 49 mg/dL (7-21); CALCIUM 9.5 mg/dL (8.4-10.5); CARBON DIOXIDE 25 mmol/L (21-33); CHLORIDE 103 mmol/L (98-107); GFR AFRICAN-AMERICAN > 60; GLUCOSE,RANDOM 117 mg/dL (70-110); POTASSIUM 3.6 mmol/L (3.6-5.0); SODIUM 144 mmol/L (132-148); TOTAL PROTEIN 8.2 g/dL (5.8-8.3)
[2016-05-28] MEDS: Insulin Reg-MEDIUM-Coverage SC SCH ×4 (08:12→23:07)
--- NOTE | 2016-05-28 08:21 | PN ---
DATE: 05/28/2016 SUBJECTIVE: The patient appears comfortable this morning. She is not short of breath at rest. She remains confused. PHYSICAL EXAMINATION: VITAL SIGNS: Temperature is 98.4, pulse 86, respirations 18/20, blood pressure 152/81. Oxygen saturation on room air (patient continues to take off oxygen) - - 93%. HEENT: Normocephalic, atraumatic. No JVD. CARDIOVASCULAR: Positive S1, S2. No S3. LUNGS: Minimal bilateral rhonchi. No wheezing. EXTREMITIES: Mild edema. No cyanosis, no clubbing. Calves are nontender to palpation. GASTROINTESTINAL: Abdomen is soft, nontender, nondistended. Bowel sounds are positive. SKIN: No acute rash. NEUROLOGIC: Limited at the present time. IMPRESSION: 1. Ventricular tachycardia arrest. 2. Respiratory failure. 3. Chronic obstructive pulmonary disease. 4. Coronary artery disease. 5. Advanced cardiomyopathy. 6. Mild anemia. 7. Encephalopathy. PLAN: The patient appears comfortable this morning. She is not short of breath at rest. She remains confused. I did discuss the case with the night nurse at length. The night nurse confirms that the patient has been confused - - and is refusing a lot of her medication and respiratory treatments. Neurology input is noted by Dr. Cronin. Again, I would also consider getting a psychiatric evaluation as soon as possible. On physical exam, there is only minimal bronchospasm noted. In addition, there is no significant alveolar- arterial gradient. I will continue with the current nebulizer treatments and low-dose intravenous steroids for now. I would continue with the treatment for the cardiac arrhythmias and cardiomyopathy as per cardiology. Input by Dr. Ortega is noted. I will also continue with the aspiration precautions -- given her above mental status. The patient is certainly clinically improved -- compared to earlier this week. However, again, the overall status/prognosis of this chronically ill patient -- remains poor. I will discuss the above with Dr. King. Adam Parker MD cc: [id number] TT: 05/28/2016 08:20:25 Confirmation # [id number] Dictation # [id number] MTDD
[2016-05-28] MEDS: MethylPREDNISolone 40 mg Vial IVP SCH ×2 (10:42→21:52)
[2016-05-28] MEDS: cefTRIAXone 1 gm 100 ML IVPB SCH (10:43)
[2016-05-28] MEDS: Nystatin 100,000 Units/ml Oral Susp 5 ml UD PO SCH ×4 (10:45→21:50)
--- NOTE | 2016-05-28 13:41 | CP.PCM.PN ---
Subjective - Date & Time of Evaluation Date of Evaluation: 05/28/16 Time of Evaluation: 14:00 - Subjective Subjective: Patient: ALEX VALDOVINOS [facility] #:[id number] Unit: [id number] : 1950 Loc: 2RNO Room/Bed: 267-02 Age/Sex: 65 / F ADM Status: ADM IN ADM Date: DIS Date: Progress note: DATE: 05/28/2016 CHIEF COMPLAINT: F/U for Evaluation for hypoxic brain injury. SUBJECTIVE: r. Currently, she is following simple commands and has generalized weakness but moving all extremities, slow to respond to questions. CT head showed no acute abnormalities. PAST MEDICAL HISTORY: History of severe cardiomyopathy, likely related to ETOH abuse, COPD, active tobacco and ETOH abuser. SOCIAL HISTORY: Smokes and drinks daily. REVIEW OF SYSTEMS: A 14-point review of systems was negative except for the HPI. FAMILY HISTORY: Noncontributory. ALLERGIES: ALLERGIC TO DIPHENHYDRAMINE AND ANESTHETIC AGENTS. PHYSICAL EXAMINATION: VITAL SIGNS: Reviewed. GENERAL: The patient is sitting up in bed, in no acute distress. HEENT: Atraumatic, normocephalic. PERRLA. Extraocular muscles intact. NECK: Supple, no JVD, no adenopathy noted. LUNGS: Clear to auscultation. No adventitious sounds. HEART: S1, S2, regular rate and rhythm. No murmurs, rubs, or gallops. LUNGS: Decreased breath sounds at the bases, scattered rhonchi. ABDOMEN: Soft, nontender, nondistended. Bowel sounds are present. EXTREMITIES: No clubbing, no cyanosis. Peripheral pulses 2+ felt bilaterally. NEUROLOGIC: The patient is alert, oriented to self, not much of month or year. Recall after 5 minutes is 0/3. Poor attention span, slow thought process. Cranial nerves II-XII are intact. Speech is hypophonic, but no aphasia noted. MOTOR: Moving all extremities equally, but no pronator drift seen. SENSORY: Withdraws to localized noxious stimulus. Light touch is intact. Proprioception is intact. DTRs are 1+ throughout. COORDINATION: Deferred for now. GAIT: Deferred for now. LABORATORY DATA: Reviewed. ASSESSMENT AND PLAN: This is a 65-year-old woman with a history of severe chronic obstructive pulmonary disease, chronic smoker, chronic ETOH abuse, history of end-stage dilated cardiomyopathy likely secondary to alcohol with a left ejection fraction on 14% with severe septal and apical hypokinesis seen on the echo, is status post ventricular fibrillation and ventricular tachycardia x 1, with return of spontaneous circulation. Since then she is extubated and on the telemetry floor being managed for underlying acute congestive heart failure exacerbation, dilated cardiomyopathy as well as acute bronchitis on antibiotics. I was consulted for her mental status. 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 At this time, recommend: 1. Monitor electrolytes and correct accordingly. 2. Continue to keep her blood pressures with milrinone elevated between at least 120-130 mmHg. 3. Aspirin 81 mg and lipitor 20 mg p.o. daily for stroke prevention. 4. Avoid nighttime interruptions. Have frequent orientation throughout the day. 5. Continue with physical and occupational therapy. The patient will need acute rehabilitation as well as cardiac rehab and continue gastrointestinal and deep vein thrombosis prophylaxis. Thank you Re consult if necessary. Cody Cronin MD Objective - Vital Signs/Intake and Output Vital Signs (last 24 hours): Temp Pulse Resp BP Pulse Ox 98.4 F 80 20 130/70 93 L 05/28/16 05:45 05/28/16 10:00 05/28/16 05:45 05/28/16 10:42 05/28/16 05:45 Intake and Output: 05/28/16 05/28/16 06:59 18:59 Intake Total 170 Output Total 500 Balance -330 - Medications Medications: Current Medications Al Hydrox/Mg Hydrox/Simethicone (Maalox Plus 30 Ml) 15 ml PO Q4 [facility] Last Admin: 05/28/16 12:08 Dose: Not Given Aspirin (Aspirin Chewable) 81 mg PO DAILY [facility] Last Admin: 05/28/16 10:45 Dose: Not Given Atorvastatin Calcium (Lipitor) 20 mg PO DIN [facility] Last Admin: 05/27/16 17:17 Dose: Not Given Carvedilol (Coreg) 6.25 mg PO BID [facility] Last Admin: 05/28/16 10:45 Dose: Not Given Furosemide (Lasix) 40 mg IVP DAILY [facility] Last Admin: 05/28/16 10:42 Dose: 40 mg Heparin Sodium (Porcine) (Heparin) 5,000 units SC Q12 [facility] PRN Reason: Protocol Last Admin: 05/28/16 10:43 Dose: 5,000 units Ceftriaxone Sodium (Rocephin 1 Gram Ivpb) 100 mls @ 100 mls/hr IVPB DAILY [facility] PRN Reason: Protocol Last Admin: 05/28/16 10:43 Dose: 100 mls/hr Milrinone Lactate/Dextrose (Primacor 20mg/100ml D5w) 100 mls @ 3.484 mls/hr IV .Q24H PRN; Protocol; 0.2 MCG/KG/MIN PRN Reason: TITRATE PER MD ORDER Last Admin: 05/27/16 19:08 Dose: 3.484 mls/hr Insulin Human Regular (Humulin R Med) 0 units SC ACHS [facility] PRN Reason: Protocol Last Admin: 05/28/16 08:12 Dose: Not Given Levalbuterol HCl (Xopenex) 0.63 mg IH [id number] [facility] Last Admin: 05/28/16 07:53 Dose: Not Given Methylprednisolone (Solu-Medrol) 20 mg IVP Q12 [facility] Last Admin: 05/28/16 10:42 Dose: 20 mg Nystatin (Nystatin Oral Susp) 5 ml PO QID [facility] Last Admin: 05/28/16 10:45 Dose: Not Given Pantoprazole Sodium (Protonix Inj) 40 mg IVP DAILY [facility] Last Admin: 05/28/16 10:42 Dose: 40 mg Ramipril (Altace) 5 mg PO DAILY [facility] Last Admin: 05/28/16 10:45 Dose: Not Given - Labs Labs: 05/28/16 07:42 05/28/16 07:42
--- NOTE | 2016-05-28 13:42 | PN ---
DATE: 05/28/2016 REASON FOR DICTATION: Covering Dr. Michael Schulte. REASON FOR CONSULTATION: Coronary artery disease, status post ventricular fibrillation arrest, respi ratory failure, advanced cardiomyopathy. BRIEF CLINICAL HISTORY: A 65-year-old female with a past medical history significant for ventricular tachycardia, respiratory failure, chronic obstructive pulmonary disease, advanced cardiomyopathy, st atus post successfully extubated, altered mental status, encephalopathy. Now transferred to the [facility]. Denies any chest pain, shortness of breath, any palpitation. Family is at the bedside. PHYSICAL EXAMINATION: VITAL SIGNS: Temperature afebrile, heart rate 86, blood pressure 130/70. HEENT: PERRLA. Extraocular muscles intact. NECK: Supple. No carotid bruits. No thyromegaly. CHEST: Clear to auscultation. HEART: S1, S2 regular. ABDOMEN: Soft. EXTREMITIES: Clubbing, cyanosis negative. BLOOD WORKUP: WBC 8.5, hemoglobin 13.9, hematocrit 41.7, platelet count 271. Chemistry shows sodium 144, potassium 3.0, chloride 103, carbon dioxide 25, anion gap of 20, BUN 49, creatinine 0.9. Total bilirubin 0.9, AST 80, ALT 79, alkaline phosphatase 130. IMPRESSION: Status post ventricular tachycardia arrest, status post intubated and successfully extub ated, encephalopathy, non-ST segment myocardial infarction, alcoholic hepatitis, diabetes, end-stage cardiomyopathy, status post cardiopulmonary resuscitation. Most recent echo 05/24/2016 showed mildly dilated left ventricle, systolic function severely impaired, mild to moderate mitral regurgitation, m ild pulmonary hypertension, right ventricular systolic pressure 37, calculated ejection fraction 14%. RECOMMENDATION: Continue ramipril. Continue . Continue Coreg. Continue deep venous thrombosi s prophylaxis, heparin. Continue gentle diuretics. Continue atorvastatin. Continue milrinone. Con tinue antibiotic. We will follow with you. Thank you, Dr. King, for providing us the opportunity in taking care of the patient. We will tr ansfer care tomorrow to Dr. Michael Schulte. Waldo Ortega MD cc: [id number] TT: 05/28/2016 13:42:04 Confirmation # [id number] Dictation # [id number] en
[2016-05-28] MEDS: Milrinone 20mg/100ml D5W 100 ML IV PRN (17:33)
[2016-05-29] MEDS: Levalbuterol 0.63 MG/3 ML Inhal Soln UD IH SCH ×5 (01:08→20:55)
[2016-05-29] MEDS: Alum-Mag Hydrox-Simethicone Susp (30 mL) PO SCH ×5 (05:16→21:49)
[2016-05-29 07:21] LABS: GRAN % 92.5 % (50.0-68.0); HEMATOCRIT 41.3 % (36.0-48.0); LYMPH # 0.3 (1.2-3.4); LYMPH % 3.4 % (22.0-35.0); MEAN CELL VOLUME 103.5 fL (80.0-105.0); MEAN CORPUSCULAR HEMOGLOBIN 34.6 pg (25.0-35.0); MEAN CORPUSCULAR HGB CONC 33.4 g/dl (31.0-37.0); MONO # 0.4 (0.1-0.6); MONO % 4.1 % (1.0-6.0); PLATELET COUNT 257 10^3/uL (120.0-450.0); RED CELL DISTRIBUTION WIDTH 15.4 % (11.5-14.5); WHITE BLOOD COUNT 9.6 10^3/ul (4.5-11.0)
[2016-05-29 07:25] LABS: ADD MANUAL DIFF? NO
--- NOTE | 2016-05-29 07:36 | PN ---
DATE: 05/29/2016 SUBJECTIVE: The patient appears comfortable at rest. She is not short of breath. She remains confused. PHYSICAL EXAMINATION: VITAL SIGNS: Temperature is 98.4, pulse on the monitor is 91, respirations 18, blood pressure 131/76. Oxygen saturation on nasal cannula is 96%. HEENT: Normocephalic, atraumatic. No JVD. CARDIOVASCULAR: Positive S1, S2. No S3. LUNGS: Minimal/less rhonchi. No wheezing. EXTREMITIES: Mild edema. No cyanosis, no clubbing. Calves are nontender to palpation. GASTROINTESTINAL: Abdomen is soft, nontender, nondistended. Bowel sounds are positive. SKIN: No acute rash. NEUROLOGIC: Limited at the present time. IMPRESSION: 1. Ventricular tachycardia arrest. 2. Respiratory failure. 3. Chronic obstructive pulmonary disease. 4. Coronary artery disease. 5. Advanced cardiomyopathy. 6. Mild anemia. 7. Encephalopathy. PLAN: The patient appears comfortable this morning. She is not short of breath at rest. She remains very confused and paranoid. I did discuss the case with the night nurse at length. The night nurse confirms that the patient is refusing some of her medications and some of her respiratory treatments. Inputs by cardiology and neurology are noted. Again, I would suggest a psychiatric consult at this point in time. I will continue with the current nebulizer treatments and low-dose intravenous steroids for now. I will also continue with the aspiration precautions. Cardiology evaluation is ongoing. Inputs by Dr. Ortega and Dr. Schulte are noted. Clinical status of the patient is improved -- compared to the end of last week. However, again, the overall status/prognosis of this patient is poor. I will discuss the above with the attending physician. Adam Parker MD cc: [id number] TT: 05/29/2016 07:36:30 Confirmation # [id number] Dictation # [id number] en MTDD
[2016-05-29 07:45] LABS: ALB/GLOB RATIO 1.1 (1.1-1.8); ALKALINE PHOSPHATASE 135 U/L (38-133); ALT/SGPT 138 U/L (7-56); AST/SGOT 149 U/L (15-39); BLOOD UREA NITROGEN 55 mg/dL (7-21); CALCIUM 9.7 mg/dL (8.4-10.5); CARBON DIOXIDE 28 mmol/L (21-33); CHLORIDE 103 mmol/L (98-107); GFR AFRICAN-AMERICAN > 60; GLUCOSE,RANDOM 128 mg/dL (70-110); POTASSIUM 3.6 mmol/L (3.6-5.0); SODIUM 147 mmol/L (132-148)
[2016-05-29] MEDS: Insulin Reg-MEDIUM-Coverage SC SCH ×4 (07:52→21:39)
--- NOTE | 2016-05-29 08:11 | PN ---
DATE: 05/27/2016 The patient was seen this Sunday morning in room 276, bed 2, with her spouse equivalent, beto Olmos t the bedside. The patient had been refusing medications and refusing the phlebotomy. She remains a bit groggy and not focused, sometimes speaking simple phrases, but not able to comprehend or engage in conversation. PHYSICAL EXAMINATION: GENERAL: Her gaze seems to be more leftward. LUNGS: Show good aeration, right and left. HEART: Regular, but not tachycardic. IMPRESSION: In view of the recent cardiac arrest, I suspect the current clinical picture may be rela meenakshi to an anoxic brain injury. PLAN: We will ask neurology to see and get a CT scan of the head and follow. Tripp King MD cc: [id number] TT: 05/29/2016 08:10:55 Confirmation # [id number] Dictation # [id number] mn
--- NOTE | 2016-05-29 08:25 | PN ---
DATE: 05/28/2016 The patient was seen this Sunday in room 267, bed 2 with her spouse equivalent, Nickolas, at t he bedside. I spoke with her son late yesterday (Sunday) afternoon. I explained to her that neuro logy consultation has been called and the CT scan was essentially unremarkable except for some small vessel disease and atrophy. Neurology note is appreciated as well as cardiology and pulmonary follow up. PHYSICAL EXAMINATION: GENERAL: Today, Sunday morning, the patient is awake, but again not truly conversant, staring at the wall, but does not answer my questions clearly. There does not seem to be any focal motor deficit. She is moving all extremities. LUNGS: Show good aeration, right and left. HEART: , not tachycardic. EXTREMITIES: Thin with no edema. She is taking some nutrition, but only small amounts of food when fed by staff or family. Nutrition will certainly be an issue in the upcoming days. IMPRESSION: 1. Altered mental status post cardiac arrest. I suspect clinically she appears to be looking like a hypoxic brain injury. 2. Dilated cardiomyopathy. 3. History of tobacco and alcohol use. PLAN: I spoke with Nickolas, her longtime friend and partner, about heroic efforts and resuscitation in view of the severity of her cardiomyopathy. He is not prepared to make any such decisions. I uri l need to talk to her son later as well. Cardiology input regarding her poor ejection fraction and r ecommendation for defibrillator placement is noted. I think we need to finalize our plan and directi on of care at this point based on her neurologic status, if it improves. Tripp King MD cc: [id number] TT: 05/29/2016 08:24:12 Confirmation # [id number] Dictation # [id number] en
[2016-05-29] MEDS ORDERED: Potassium Chloride 20 mEq/15 ml LIQ UD PO STA (09:19)
[2016-05-29] MEDS: Nystatin 100,000 Units/ml Oral Susp 5 ml UD PO SCH ×4 (09:23→21:50)
[2016-05-29] MEDS: cefTRIAXone 1 gm 100 ML IVPB SCH (09:26)
[2016-05-29] MEDS: MethylPREDNISolone 40 mg Vial IVP SCH ×2 (09:29→21:49)
--- NOTE | 2016-05-29 09:38 | PN ---
DATE: 05/29/2016 CARDIOLOGY FOLLOWUP The patient is in bed, awake, mildly confused. PHYSICAL EXAMINATION: VITAL SIGNS: Blood pressure is 139/96. The heart rate is 100, sinus rhythm. NECK: Negative JVD. LUNGS: Decreased breath sounds bilaterally. HEART: Reveals S1, S2. EXTREMITIES: Without edema. LABORATORIES: The potassium is 3.6. Magnesium was not drawn. Hemoglobin is 13.8. IMPRESSION: 1. Status post ventricular fibrillation arrest. 2. Pneumonia. 3. End-stage dilated cardiomyopathy. 4. History of alcoholism. 5. Chronic obstructive pulmonary disease. Given these findings, the patient was evaluated by EP who decided no defibrillator placed. Given her recent ventricular tachycardia, fibrillation episode, and her poor LV function, we will sta rt the patient on amiodarone. Physical therapy has been ordered. We will discontinue telemetry. Michael Schulte MD cc: [id number] TT: 05/29/2016 09:36:53 Confirmation # [id number] Dictation # [id number] shonna
[2016-05-30] MEDS: Alum-Mag Hydrox-Simethicone Susp (30 mL) PO SCH ×4 (00:46→17:06)
[2016-05-30] MEDS: Levalbuterol 0.63 MG/3 ML Inhal Soln UD IH SCH ×4 (02:05→20:40)
--- NOTE | 2016-05-30 07:35 | PN ---
DATE: 05/30/2016 SUBJECTIVE: The patient appears comfortable at rest. She is not short of breath. She remains confused. PHYSICAL EXAMINATION: VITAL SIGNS: Temperature is 98.7, pulse on the monitor is 78, respiratory rate 18/20, last blood pressure recorded 96/58. Oxygen saturation on nasal cannula is 92%-96%. HEENT: Normocephalic, atraumatic. No JVD. CARDIOVASCULAR: Positive S1, S2. No S3. LUNGS: Clear bilaterally this morning. EXTREMITIES: Mild edema. No cyanosis, no clubbing. Calves are nontender to palpation. GASTROINTESTINAL: Abdomen is soft, nontender, nondistended. Bowel sounds are positive. SKIN: No acute rash. NEUROLOGIC: Limited at the present time. IMPRESSION: 1. Ventricular tachycardia arrest. 2. Respiratory failure. 3. Chronic obstructive pulmonary disease. 4. Coronary artery disease. 5. Advanced cardiomyopathy. 6. Mild anemia. 7. Encephalopathy. PLAN: The patient appears comfortable this morning. She is not short of breath at rest. She remains confused. I did discuss the case with the night nurse at length. The night nurse confirmed again-- that the patient remains confused and is refusing some of her medications, as well as some of her respiratory treatments. Again, I would suggest a psychiatric evaluation at this point in time. Neurology evaluation with Dr. Cronin is noted. On physical exam, her lungs are now clear. I will continue with the current nebulizer treatments and change to oral steroids at this point in time. I would continue with the cardiology evaluation. Input by Dr. Schulte is noted. The patient is now on amiodarone. Again, the clinical status of the patient is certainly improved -- from last week. However, the future status/prognosis of this chronically ill patient--with significant medical problems-- remains poor. All are aware. I will discuss the above with Dr. King. Adam Parker MD cc: [id number] TT: 05/30/2016 07:34:42 Confirmation # [id number] Dictation # [id number] en MTDD
--- NOTE | 2016-05-30 08:33 | PN ---
DATE: 05/30/2016 The patient is mildly confused. Her appetite is decreased. Blood pressure is 102/55, the heart rate is in the 90s. NECK: Negative JVD. LUNGS: Without rales. HEART: Reveals S1, S2. EXTREMITIES: Without edema. LABORATORIES: Were not done yet today. IMPRESSION: 1. Status post ventricular tachycardia arrest. 2. Dilated cardiomyopathy. 3. Chronic obstructive pulmonary disease. 4. History of alcoholism. Given these findings, will begin to mobilize the patient out of bed today. Will continue the IV milr inone. Amiodarone has been ordered, given that the EP consult suggests no defibrillator to be placed . Michael Schulte MD cc: [id number] TT: 05/30/2016 08:33:21 Confirmation # [id number] Dictation # [id number] shonna
[2016-05-30] MEDS: Insulin Reg-MEDIUM-Coverage SC SCH ×4 (08:36→22:10)
[2016-05-30] MEDS: Nystatin 100,000 Units/ml Oral Susp 5 ml UD PO SCH ×4 (10:11→23:24)
[2016-05-30] MEDS: cefTRIAXone 1 gm 100 ML IVPB SCH (10:25)
[2016-05-30 10:45] LABS: MAGNESIUM 3.1 mg/dL (1.7-2.2)
[2016-05-30 20:29] LABS: ARTERIAL BLOOD GAS HCO3 23.8 mmol/L (21-28); ARTERIAL BLOOD GAS PH 7.48 (7.35-7.45)
--- NOTE | 2016-05-30 22:56 | CP.PCM.CON ---
<WilHeike - Last Filed: 05/31/16 00:17> History of Present Illness - History of Present Illness History of Present Illness: 65 F with PMHx of COPD and end-stage Cardiomyopathy with an EF of 14% s/p cardiopulmonary arrest and ventricular tachycardia requiring defibrillation x1. PATENT AGENT was called on 05/30/16 as patient was lethargic, hypotensive with BP of 70/ 50 and hypoxic with 02 sat at 80%. Pt was started on a non-rebreather mask, ABG was drawn, CXR ordered, and a 250ml NS bolus. Pt was arousable but lethargic and somnolent. Pt was evaluated for ICU transfer for altered status and hypotension. Pt was sating at 96% with non-rebreather mask. Pt is able to follow simple commands and is arousable. ROS unobtainable due to pts condition. PMHx: COPD, EtOH abuse, tobacco abuse, h/o follicular lymphoma s/p chemo, CAD, HTN, arthritis, end-stage cardiomyopathy, NSTEMI SocialHx: active tobacco abuse, chronic etoh abuse FamilyHx: Noncontributory Allergies: Diphenhydramine, ANESTHESIA HomeMeds: Librium, Lasix, Xanax, Ambien, Brovana, Ibuprofen, Motrin, Ultram Review of Systems - Review of Systems Systems not reviewed;Unavailable: Acuity of Condition, Altered Mental Status Past Patient History - Infectious Disease Hx of Infectious Diseases: None - Tetanus Immunizations Tetanus Immunization: Up to Date, Unknown - Past Medical History & Family History Past Medical History?: Yes - Past Social History Smoking Status: Current Some Days Smoker - CARDIAC Hx Cardiac Disorders: Yes Hx Congestive Heart Failure: Yes - PULMONARY Hx Chronic Obstructive Pulmonary Disease (COPD): Yes - NEUROLOGICAL Hx Neurological Disorder: Yes (syncope ams) Hx Dizziness: Yes - HEENT Hx HEENT Problems: Yes (eyeglasses) - RENAL Hx Chronic Kidney Disease: No - ENDOCRINE/METABOLIC Hx Diabetes Mellitus Type 1: Yes - HEMATOLOGICAL/ONCOLOGICAL Hx Blood Disorders: Yes (thrombocytopenia) Hx Anemia: Yes (blood transfusion) Hx Cancer: Yes (follicular lymphoma 2007) Hx Chemotherapy: Yes Other/Comment: gastrointestinal ca 2007 - INTEGUMENTARY Hx Dermatological Problems: No (LEFT UPPER ARM IN AND OUT OF PORT.) - MUSCULOSKELETAL/RHEUMATOLOGICAL Hx Arthritis: Yes - GASTROINTESTINAL Hx Diverticulitis: Yes - GENITOURINARY/GYNECOLOGICAL Hx Genitourinary Disorders: No Hx Reproductive Disorders: No - PSYCHIATRIC Hx Emotional Abuse: No Hx Physical Abuse: No Hx Substance Use: No Other/Comment: alcohol abuse - SURGICAL HISTORY Hx Surgeries: Yes Hx Cardiac Catheterization: Yes Hx Coronary Stent: Yes - ANESTHESIA Hx Anesthesia Reactions: Yes (SEE ALLERGIES) Hx Malignant Hyperthermia: No Meds Allergies/Adverse Reactions: Allergies Allergy/AdvReac Type Severity Reaction Status Date / Time diphenhydramine HCl Allergy SHORTNESS Verified 05/22/16 07:02 [From Benadryl] OF BREATH anesthesia Allergy Intermediate RASH Uncoded 05/16/16 08:22 anesthetic agents Allergy Mild ANAPHYLAXIS Uncoded 05/22/16 07:02 - Medications Medications: Current Medications Al Hydrox/Mg Hydrox/Simethicone (Maalox Plus 30 Ml) 15 ml PO Q4 [facility] Last Admin: 05/30/16 17:06 Dose: Not Given Amiodarone HCl (Cordarone) 400 mg PO BID [facility] Last Admin: 05/30/16 17:26 Dose: Not Given Aspirin (Aspirin Chewable) 81 mg PO DAILY [facility] Last Admin: 05/30/16 10:06 Dose: 81 mg Atorvastatin Calcium (Lipitor) 20 mg PO DIN [facility] Last Admin: 05/30/16 17:07 Dose: 20 mg Carvedilol (Coreg) 3.125 mg PO BID [facility] Furosemide (Lasix) 40 mg IVP DAILY [facility] Last Admin: 05/30/16 10:13 Dose: 40 mg Heparin Sodium (Porcine) (Heparin) 5,000 units SC Q12 [facility] PRN Reason: Protocol Last Admin: 05/30/16 22:10 Dose: 5,000 units Ceftriaxone Sodium (Rocephin 1 Gram Ivpb) 100 mls @ 100 mls/hr IVPB DAILY [facility] PRN Reason: Protocol Last Admin: 05/30/16 10:25 Dose: 100 mls/hr Milrinone Lactate/Dextrose (Primacor 20mg/100ml D5w) 100 mls @ 3.484 mls/hr IV .Q24H PRN; Protocol; 0.2 MCG/KG/MIN PRN Reason: TITRATE PER MD ORDER Last Admin: 05/28/16 17:33 Dose: 3.484 mls/hr Insulin Human Regular (Humulin R Med) 0 units SC ACHS [facility] PRN Reason: Protocol Last Admin: 05/30/16 22:10 Dose: Not Given Levalbuterol HCl (Xopenex) 0.63 mg IH [id number] [facility] Last Admin: 05/30/16 20:40 Dose: 0.63 mg Nystatin (Nystatin Oral Susp) 5 ml PO QID [facility] Last Admin: 05/30/16 17:07 Dose: 5 ml Pantoprazole Sodium (Protonix Inj) 40 mg IVP DAILY [facility] Last Admin: 05/30/16 10:14 Dose: 40 mg Prednisone (Prednisone Tab) 30 mg PO DAILY [facility] Last Admin: 05/30/16 10:10 Dose: 30 mg Ramipril (Altace) 1.25 mg PO DAILY [facility] Physical Exam - Constitutional Appears: Non-toxic, No Acute Distress, Confused - Head Exam Head Exam: ATRAUMATIC, NORMAL INSPECTION, NORMOCEPHALIC - Eye Exam Eye Exam: EOMI, Normal appearance, PERRL Pupil Exam: NORMAL ACCOMODATION, PERRL - ENT Exam ENT Exam: Mucous Membranes Moist, Normal Exam - Neck Exam Neck exam: Positive for: Normal Inspection - Respiratory Exam Respiratory Exam: Decreased Breath Sounds, Clear to Auscultation Bilateral, NORMAL BREATHING PATTERN - Cardiovascular Exam Cardiovascular Exam: REGULAR RHYTHM, +S1, +S2 - GI/Abdominal Exam GI & Abdominal Exam: Normal Bowel Sounds, Soft. absent: Tenderness - Extremities Exam Extremities exam: Positive for: normal inspection - Neurological Exam Neurological exam: Alert, Altered - Skin Skin Exam: Dry, Intact, Normal Color, Warm Results - Vital Signs Recent Vital Signs: Last Vital Signs Temp 96.2 F L 05/30/16 18:00 Pulse 63 05/30/16 18:00 Resp 19 05/30/16 18:00 BP 61/53 L 05/30/16 18:00 Pulse Ox 92 L 05/30/16 06:00 - Labs Result Diagrams: 05/29/16 06:45 05/29/16 06:45 Labs: Laboratory Results - last 24 hr 05/30/16 05/30/16 05/30/16 10:30 10:45 20:20 pCO2 32 L pO2 139.0 H HCO3 23.8 ABG pH 7.48 H ABG Total CO2 24.8 ABG O2 Saturation 99.3 H ABG Base Excess 0.9 ABG Potassium 3.0 L Sodium 142.0 Chloride 110.0 H Glucose 154 H Lactate 1.7 FiO2 100.0 Magnesium 3.1 H 25-OH Vitamin D Total < 12.8 L Arterial Blood Potassium 3.0 L Assessment & Plan - Assessment and Plan (Free Text) Assessment: 65 F with COPD, CHF with EF of 14% admitted to ICU for altered mental status and hd instability. Neuro: Lethargic, somnolent, AAOx1, able to follow simple commands Dr. Cronin following, pending MRI Pulm: COPD 02 sat 96% on NC ABG reviewed, CXR pending Acute bronchitis on rocephin Maintain 02 sat >90% Dr. Parker following, prednisone 30mg daily, solumedrol and xopenex q6 CV: hypotensive 86/70 s/p 250 ml NS bolus, will add one more 250 ml bolus Ramipril and coreg CHF with EF 14%, milrinone, lasix. target MAP>65 Dr. Schulte following, defibrillator placement not recommended, continue milrinone amiodarone Renal: gusman in place Strict I&os monitor renal function monitor electrolytes and supplement as needed GI: aspiration precautions GI ppx ID: Acute bronchitis on rocephin f/u UCx GI, DVT ppx <Alanis GARCIA,Twan - Last Filed: 06/05/16 09:43> Meds - Medications Medications: Current Medications Acetaminophen (Tylenol 325mg Tab) 650 mg PO Q4H PRN PRN Reason: Pain, Mild (1-3) Last Admin: 06/05/16 04:52 Dose: 650 mg Al Hydrox/Mg Hydrox/Simethicone (Maalox Plus 30 Ml) 15 ml PO Q4 [facility] Last Admin: 06/05/16 07:52 Dose: 15 ml Alprazolam (Xanax) 0.25 mg PO Q6 PRN; Protocol PRN Reason: Anxiety Stop: 06/12/16 00:01 Last Admin: 06/05/16 04:52 Dose: 0.25 mg Amiodarone HCl (Cordarone) 200 mg PO BID [facility] Last Admin: 06/04/16 17:40 Dose: 200 mg Aspirin (Aspirin Chewable) 81 mg PO DAILY [facility] Last Admin: 06/04/16 09:02 Dose: 81 mg Atorvastatin Calcium (Lipitor) 20 mg PO DIN [facility] Last Admin: 06/04/16 16:09 Dose: 20 mg Doxycycline Hyclate (Doryx) 100 mg PO Q12 [facility] PRN Reason: Protocol Last Admin: 06/04/16 21:49 Dose: 100 mg Ceftriaxone Sodium (Rocephin 1 Gram Ivpb) 100 mls @ 100 mls/hr IVPB DAILY [facility] PRN Reason: Protocol Last Admin: 06/04/16 09:05 Dose: 100 mls/hr Insulin Human Regular (Humulin R Med) 0 units SC ACHS [facility] PRN Reason: Protocol Last Admin: 06/05/16 07:39 Dose: Not Given Levalbuterol HCl (Xopenex) 0.63 mg IH [id number] [facility] Last Admin: 06/05/16 07:19 Dose: Not Given Lidocaine (Lidoderm) 1 ea TD DAILY [facility] Last Admin: 06/04/16 09:03 Dose: 1 ea Nystatin (Nystatin Oral Susp) 5 ml PO QID [facility] Last Admin: 06/04/16 21:51 Dose: 5 ml Pantoprazole Sodium (Protonix Inj) 40 mg IVP DAILY [facility] Last Admin: 06/04/16 09:05 Dose: 40 mg Prednisone (Prednisone Tab) 10 mg PO DAILY [facility] Last Admin: 06/04/16 09:04 Dose: 10 mg Ramipril (Altace) 1.25 mg PO DAILY [facility] Last Admin: 06/04/16 09:02 Dose: 1.25 mg Thiamine HCl (Vitamin B1 Tab) 100 mg PO DAILY [facility] Last Admin: 06/04/16 14:36 Dose: 100 mg Tramadol HCl (Ultram) 50 mg PO Q6 PRN PRN Reason: Pain, severe (8-10) Last Admin: 06/05/16 02:29 Dose: 50 mg Zolpidem Tartrate (Ambien) 5 mg PO HS PRN; Protocol PRN Reason: Insomnia Last Admin: 06/04/16 22:38 Dose: 5 mg Results - Vital Signs Recent Vital Signs: Last Vital Signs Temp 98.1 F 06/05/16 05:42 Pulse 64 06/05/16 05:42 Resp 18 06/05/16 05:42 BP 124/75 06/05/16 05:42 Pulse Ox 92 L 06/05/16 05:42 - Labs Result Diagrams: 06/02/16 05:30 06/02/16 05:30 Labs: Laboratory Results - last 24 hr 06/04/16 06/04/16 06/04/16 07:35 16:02 21:17 POC Glucose (mg/dL) 85 113 H 134 H Attending/Attestation - Attestation I have personally seen and examined this patient.: Yes I have fully participated in the care of the patient.: Yes I have reviewed all pertinent clinical information: Yes Notes (Text): 06/05/16 09:39 -I agree with the above consult H&P completed by the resident physician. -Briefly, the patient is a 65 year old woman with a history of COPD and CHF (EF= 14%) who was admitted a few days prior with cardiac arrest due to ventricular tachycardia (s/p defibrillation). Overnight, a PATENT AGENT was called because she suddenly became hypotensive and hypoxic. Her BP has improved with an IV bolus. As a result, she was transferred to the ICU overnight for closer management and monitoring. Will check serial trop's/EKG's, ferrer-cultures, ABG, CMP and CBC to determine underlying etiology of her acute symptoms.
[2016-05-31] MEDS: Levalbuterol 0.63 MG/3 ML Inhal Soln UD IH SCH ×4 (01:00→20:08)
--- NOTE | 2016-05-31 02:47 | PN ---
DATE: 05/30/2016 SUBJECTIVE: I saw the patient twice today, once in the morning in room 267, bed 2. At that time, she was more awake and talkative, although confused and her speech did not make sense. She was often talking off in bizarre tangents. Her spouse-equivalent boyfriend, Nickolas, was at the bedside. Overall, patient is doing poorly with poor ejection fraction, cirrhosis, chronic obstructive pulmonary disease, ongoing tobacco and alcohol use and now with altered sensorium since the cardiac arrest 7 days ago vital signs are stable, although blood pressure runs low. MEDICATIONS: Include amiodarone, carvedilol, Ramipril, which was started just recently, as well as the Primacor drip. LABORATORY DATA: She continues to be a bit volume overloaded and is diuresing. Electrolytes are monitored regularly. Today's BUN and creatinine are 50 and 0.9 with a calcium 9.7, magnesium slightly elevated at 3.1 and a potassium of 3.6. PHYSICAL EXAMINATION: GENERAL: She is awake, but confused. She does not speak coherently, although she was much more communicative today than on other days. There were times when she seemed to recognize me, knew that I was a doctor, but could not answer simple questions or engage in conversation. PLAN: The plan was to continue the current medications. Her son, Hernesto, visited her later in the day. He reports that she was more clear and lucid. He left about 7:30 p.m. and shortly after that the patient became more lethargic and obtunded, not arousable. Her blood pressure was low. Rapid response was called by the new shift of nurses on the evening rotation. She was seen by the house physician, given some IV fluids, approximately 250 Ml, her blood pressure came up. She seems to improve clinically. About that time, I came on the floor to review the situation. Although pressors were being contemplated, I thought it best to be conservative in that, especially in view of the recent cardiac arrest. She was transferred to intensive care. I spoke at length to her son, Nilesh, who is an EMT on the local ambulance squad. He understands the severity of his mother's illness, but there does seem to be a difference in plan between him and his brother, Hernesto. I spoke with Hernesto, who feels that he is not ready to withdraw the level of aggressiveness and care for his mother and insists that we do everything we can to keep her alive for as long as possible. I spoke to him at great length with the nurses present on the floor to explain to Hernesto by telephone that his Mom is quite severely ill with a low ejection fraction, alcoholic cardiomyopathy, rather severe chronic obstructive pulmonary disease and now with hypoxic encephalopathy post-cardiac arrest. I explained that she is at high risk for recurrent cardiac arrest and my optimism is fading that she will ever be able to regain full consciousness to life the way she has known it to be and interact with her environment. In spite of this all, he asks that everything be done to keep her alive for as long as possible. Therefore, we will continue the current course of treatment as we have had for the last 8 days during this hospital stay . DIAGNOSES: 1. Congestive heart failure. 2. Dilated cardiomyopathy. 3. Status post cardiac arrest 7 days ago. 4. Chronic obstructive pulmonary disease. 5. Tobacco use disorder. 6. Alcohol use. Tripp King MD cc: [id number] TT: 05/31/2016 02:46:59 Confirmation # [id number] Dictation # [id number] anabell HENRIQUEZ
[2016-05-31] MEDS: Alum-Mag Hydrox-Simethicone Susp (30 mL) PO SCH ×6 (05:52→21:00)
[2016-05-31 06:40] LABS: ADD MANUAL DIFF? NO
[2016-05-31 06:51] LABS: BASO # 0.01 K/mm3 (0.0-2.0); BASO % 0.1 % (0.0-3.0); EOS % 0.1 % (1.5-5.0); GRAN % 88.3 % (50.0-68.0); HEMATOCRIT 40.3 % (36.0-48.0); LYMPH # 0.7 (1.2-3.4); LYMPH % 6.6 % (22.0-35.0); MEAN CELL VOLUME 105.2 fL (80.0-105.0); MEAN CORPUSCULAR HGB CONC 33.3 g/dl (31.0-37.0); MEAN PLATELET VOLUME 10.3 fl (7.0-11.0); MONO # 0.5 (0.1-0.6); MONO % 4.9 % (1.0-6.0); PLATELET COUNT 196 10^3/uL (120.0-450.0); RED CELL DISTRIBUTION WIDTH 15.2 % (11.5-14.5); WHITE BLOOD COUNT 10.4 10^3/ul (4.5-11.0)
[2016-05-31 07:06] LABS: BILIRUBIN,TOTAL 0.6 mg/dL (0.2-1.3); CALCIUM 8.7 mg/dL (8.4-10.5); MAGNESIUM 3.2 mg/dL (1.7-2.2); POTASSIUM 3.7 mmol/L (3.6-5.0); TOTAL PROTEIN 6.7 g/dL (5.8-8.3)
[2016-05-31] MEDS: Insulin Reg-MEDIUM-Coverage SC SCH ×4 (07:36→22:08)
--- NOTE | 2016-05-31 07:40 | RAD ---
HISTORY: Hypoxia COMPARISON: 05/26/2016 FINDINGS: LUNGS: Interval left infrahilar air bronchograms/consolidation -an interval infiltrate and/or atelectasis here is inferred. PLEURA: No significant pleural effusion identified, no pneumothorax apparent. CARDIOVASCULAR: Minimal cardiomegaly unchanged OSSEOUS STRUCTURES: Old non healed right humeral shaft fracture with angulation deformity apex towards body VISUALIZED UPPER ABDOMEN: Normal. OTHER FINDINGS: A left subclavian venous access catheter tip in superior vena cava right atrial junction-unchanged its continuous proximal course not visualized at the left axilla - correlate clinically. No change in this appearance noted IMPRESSION: Interval left infrahilar consolidation consistent with interval infiltrate and/or atelectasis.
--- NOTE | 2016-05-31 08:36 | PN ---
DATE: 05/31/2016 SUBJECTIVE: The patient is now in the ICU. She appears awake and alert. She is not short of breath. PHYSICAL EXAMINATION: VITAL SIGNS: Temperature is 98.4, pulse on the monitor is 63, respiratory rate 20, blood pressure 96/48. Oxygen saturation on nasal cannula is 96%. HEENT: Normocephalic, atraumatic. No JVD. CARDIOVASCULAR: Positive S1, S2. No S3. LUNGS: Very minimal rhonchi. No wheezing. EXTREMITIES: Mild edema. No cyanosis, no clubbing. Calves are nontender to palpation. GASTROINTESTINAL: Abdomen is soft, nontender, nondistended. Bowel sounds are positive. SKIN: No acute rash. NEUROLOGIC: Limited at the present time. PERTINENT LABORATORY DATA: Chest x-ray was done late last night and reviewed. It is a very poor, very rotated film. I do not appreciate any significant/new infiltrates. IMPRESSION: 1. Ventricular tachycardia arrest. 2. Respiratory failure. 3. Chronic obstructive pulmonary disease. 4. Coronary artery disease. 5. Advanced cardiomyopathy. 6. Mild anemia. 7. Encephalopathy. PLAN: I did discuss the case with the ICU nurse at length. I have also discussed the case with the telemetry staff at length. Apparently, yesterday, the patient became hypotensive and lethargic. She also had a decrease in her oxygen saturation. She was then transferred to the medical ICU for additional management. Again, I did discuss the case with the ICU nurse at length. She did give 2 fluid boluses - with significant improvement in the blood pressure. At the present time, the patient is not short of breath at rest. She is not using accessory muscles for breathing. On physical exam, only minimal bronchospasm noted. In addition, the oxygen saturation on nasal cannula is 96% this morning. I will continue with the current nebulizer treatments and low- dose oral steroids for now. Cardiology evaluation is ongoing. Input by Dr. Schulte is noted. Repeat a.m. labs are pending. Unfortunately, the overall status /prognosis of this patient remains poor. All are aware. I will discuss the above with the entire ICU team in the next few moments. I will also discuss the above with the attending physician later this morning. Adam Karpman MD cc: [id number] TT: 05/31/2016 08:35:35 Confirmation # [id number] Dictation # [id number] anabell HENRIQUEZ
[2016-05-31] MEDS: cefTRIAXone 1 gm 100 ML IVPB SCH (10:00)
[2016-05-31] MEDS: Nystatin 100,000 Units/ml Oral Susp 5 ml UD PO SCH ×4 (10:00→21:00)
[2016-05-31] MEDS ORDERED: DOBUTamine 500mg/250ml D5W 250 ML IV PRN ×2 (15:05)
--- NOTE | 2016-05-31 15:16 | PN ---
DATE: 05/31/2016 The patient had an episode of hypotension and lethargy in which she was brought down to the unit. He r Primacor was stopped. PHYSICAL EXAMINATION: VITAL SIGNS: Blood pressure is 105 systolic, heart rate is in the 70s. NECK: Negative JVD. LUNGS: Decreased breath sounds bilaterally. HEART: Reveals S1, S2. EXTREMITIES: Without edema. LABORATORIES: The hemoglobin is 13.4. Chemistries: BUN and creatinine are 97 and 1.5, glucose is 1 10. IMPRESSION: 1. Hypotension. 2. Prerenal azotemia. 3. End-stage dilated cardiomyopathy. 4. Alcoholic cardiomyopathy. 5. Transient hypotension. PLAN: Given these findings, we will discontinue her Primacor. We will start her on IV dobutamine. We will discontinue her carvedilol. The patient's prognosis is poor. Michael Schulte MD cc: [id number] TT: 05/31/2016 15:16:07 Confirmation # [id number] Dictation # [id number]
--- NOTE | 2016-05-31 15:19 | CP.CCUPN ---
<Tariq Wood - Last Filed: 05/31/16 15:28> CCU Subjective - Physician Review Subjective (Free Text): Pt seen and examined at bedside. Pt is accompanied by family members at bedside. Pt states she is doing better than yesterday. Pt was transferred overnight after an [employer]EDER was called for AMS and hypotension. Pt has been normotensive and has no other problems since being transferred to the ICU. Pt does admit to not eating well over the past several days and only wants to drink fluids. Denies CP, SOB, N/V/D, fever, chills. CCU Objective - Vital Signs / Intake & Output Vital Signs (Last 4 hours): Vital Signs Temp BP 05/31/16 12:16 98.6 F 05/31/16 11:38 99/58 L Intake and Output (Last 8hrs): Intake & Output 05/31/16 05/31/16 05/31/16 06:59 14:59 22:59 Intake Total 400 Output Total 300 Balance 100 Intake: IV 250 Left Hand 250 Oral 150 Output: Urine 300 Urethral (Cota) 300 Other: Voiding Method Indwelling Catheter - Physical Exam Head: Positive for: Atraumatic, Normocephalic Pupils: Positive for: PERRL Extroacular Muscles: Positive for: EOMI Conjunctiva: Positive for: Normal Mouth: Positive for: Dry Neck: Positive for: Normal Range of Motion Respiratory/Chest: Positive for: Good Air Exchange. Negative for: Respiratory Distress, Accessory Muscle Use, Wheezes, Rales, Rhonchi, Tachypneic, Tender to Palpation Cardiovascular: Positive for: Regular Rate and Rhythm, Normal S1, S2. Negative for: Murmurs Abdomen: Positive for: Normal Bowel Sounds. Negative for: Tenderness, Distention, Peritoneal Signs Back: Positive for: Normal Inspection Upper Extremity: Positive for: Deformity (chronic right upper extremity deformity). Negative for: Cyanosis, Edema Lower Extremity: Positive for: Normal Inspection. Negative for: Edema Neurological: Positive for: GCS=15, CN II-XII Intact, Speech Normal Skin: Positive for: Warm, Dry, Normal Color. Negative for: Rashes Psychiatric: Positive for: Alert, Oriented x 3, Normal Insight, Normal Concentration - Medications Active Medications: Active Medications Generic Name Dose Route Start Last Admin Trade Name Freq PRN Reason Stop Dose Admin Al Hydrox/Mg Hydrox/Simethicone 15 ml 05/23/16 12:39 05/31/16 05:53 Maalox Plus 30 Ml PO Not Given Q4 BELEM Amiodarone HCl 200 mg 05/31/16 15:03 Cordarone PO BID [facility] Aspirin 81 mg 05/26/16 14:45 05/31/16 10:00 Aspirin Chewable PO 81 mg DAILY BELEM Administration Atorvastatin Calcium 20 mg 05/26/16 17:00 05/30/16 17:07 Lipitor PO 20 mg DIN BELEM Administration Heparin Sodium (Porcine) 5,000 units 05/26/16 12:15 05/31/16 10:00 Heparin SC 5,000 units Q12 BELEM Administration Protocol Dobutamine HCl/Dextrose 250 mls @ 6.153 mls/hr 05/31/16 15:05 Dobutamine/Dextrose 5% 500mg/250ml IV .Q24H PRN TITRATE PER PROTOCOL Protocol 5 MCG/KG/MIN Insulin Human Regular 0 units 05/23/16 22:00 05/31/16 12:12 Humulin R Med SC Not Given ACHS [facility] Protocol Levalbuterol HCl 0.63 mg 05/25/16 08:00 05/31/16 13:24 Xopenex IH Not Given [id number] BELEM Nystatin 5 ml 05/23/16 18:00 05/30/16 23:24 Nystatin Oral Susp PO Not Given QID [facility] Pantoprazole Sodium 40 mg 05/25/16 10:00 05/31/16 10:00 Protonix Inj IVP 40 mg DAILY BELEM Administration Prednisone 30 mg 05/30/16 10:00 05/31/16 11:38 Prednisone Tab PO 30 mg DAILY [facility] Administration Ramipril 1.25 mg 05/31/16 10:00 05/31/16 11:38 Altace PO 1.25 mg DAILY BELEM Administration - Patient Studies Lab Studies: Lab Studies 05/31/16 05/30/16 05/30/16 Range/Units 05:30 21:29 20:20 WBC 10.4 (4.5-11.0) 10^3/ul RBC 3.83 (3.5-6.1) 10^6/uL Hgb 13.4 (12.0-16.0) gm/dL Hct 40.3 (36.0-48.0) % MCV 105.2 H (80.0-105.0) fL MCH 35.0 (25.0-35.0) pg MCHC 33.3 (31.0-37.0) g/dl RDW 15.2 H (11.5-14.5) % Plt Count 196 (120.0-450.0) 10^3/uL MPV 10.3 (7.0-11.0) fl Gran % 88.3 H (50.0-68.0) % Lymph % (Auto) 6.6 L (22.0-35.0) % [place] % (Auto) 4.9 (1.0-6.0) % Eos % (Auto) 0.1 L (1.5-5.0) % Baso % (Auto) 0.1 (0.0-3.0) % Gran # 9.20 H (1.4-6.5) Lymph # 0.7 L (1.2-3.4) [place] # 0.5 (0.1-0.6) Eos # 0.0 (0.0-0.7) Baso # 0.01 (0.0-2.0) K/mm3 pCO2 32 L (35-45) mm/Hg pO2 139.0 H (80-100) mm/Hg HCO3 23.8 (21-28) mmol/L ABG pH 7.48 H (7.35-7.45) ABG Total CO2 24.8 (22-28) mmol.L ABG O2 Saturation 99.3 H (95-98) % ABG Base Excess 0.9 (-2.0-3.0) mmol/L ABG Potassium 3.0 L (3.6-5.2) mmol/L Glucose 154 H (65-105) mg/dl Lactate 1.7 (0.7-2.1) mmol/L FiO2 100.0 % Sodium 143 142.0 (132-148) mmol/L Potassium 3.7 (3.6-5.0) mmol/L Chloride 106 110.0 H (98-107) mmol/L Carbon Dioxide 25 (21-33) mmol/L Anion Gap 16 (10-20) BUN 97 H (7-21) mg/dL Creatinine 1.5 H (0.5-1.4) mg/dL Est GFR ( Amer) 42 Est GFR (Non-Af Amer) 35 POC Glucose (mg/dL) 110 (65-110) mg/dL Random Glucose 93 (70-110) mg/dL Calcium 8.7 (8.4-10.5) mg/dL Magnesium 3.2 H (1.7-2.2) mg/dL Total Bilirubin 0.6 (0.2-1.3) mg/dL AST 48 H (15-39) U/L ALT 92 H (7-56) U/L Alkaline Phosphatase 112 (38-133) U/L Total Protein 6.7 (5.8-8.3) g/dL Albumin 3.4 (3.0-4.8) g/dL Globulin 3.4 gm/dL Albumin/Globulin Ratio 1.0 L (1.1-1.8) 25-OH Vitamin D Total (30.0-100.0) NG/ML Arterial Blood Potassium 3.0 L (3.6-5.2) mmol/L 05/30/16 05/30/16 05/30/16 Range/Units 19:50 15:57 11:11 WBC (4.5-11.0) 10^3/ul RBC (3.5-6.1) 10^6/uL Hgb (12.0-16.0) gm/dL Hct (36.0-48.0) % MCV (80.0-105.0) fL MCH (25.0-35.0) pg MCHC (31.0-37.0) g/dl RDW (11.5-14.5) % Plt Count (120.0-450.0) 10^3/uL MPV (7.0-11.0) fl Gran % (50.0-68.0) % Lymph % (Auto) (22.0-35.0) % [place] % (Auto) (1.0-6.0) % Eos % (Auto) (1.5-5.0) % Baso % (Auto) (0.0-3.0) % Gran # (1.4-6.5) Lymph # (1.2-3.4) [place] # (0.1-0.6) Eos # (0.0-0.7) Baso # (0.0-2.0) K/mm3 pCO2 (35-45) mm/Hg pO2 (80-100) mm/Hg HCO3 (21-28) mmol/L ABG pH (7.35-7.45) ABG Total CO2 (22-28) mmol.L ABG O2 Saturation (95-98) % ABG Base Excess (-2.0-3.0) mmol/L ABG Potassium (3.6-5.2) mmol/L Glucose (65-105) mg/dl Lactate (0.7-2.1) mmol/L FiO2 % Sodium (132-148) mmol/L Potassium (3.6-5.0) mmol/L Chloride (98-107) mmol/L Carbon Dioxide (21-33) mmol/L Anion Gap (10-20) BUN (7-21) mg/dL Creatinine (0.5-1.4) mg/dL Est GFR ( Amer) Est GFR (Non-Af Amer) POC Glucose (mg/dL) 186 H 146 H 154 H (65-110) mg/dL Random Glucose (70-110) mg/dL Calcium (8.4-10.5) mg/dL Magnesium (1.7-2.2) mg/dL Total Bilirubin (0.2-1.3) mg/dL AST (15-39) U/L ALT (7-56) U/L Alkaline Phosphatase (38-133) U/L Total Protein (5.8-8.3) g/dL Albumin (3.0-4.8) g/dL Globulin gm/dL Albumin/Globulin Ratio (1.1-1.8) 25-OH Vitamin D Total (30.0-100.0) NG/ML Arterial Blood Potassium (3.6-5.2) mmol/L 05/30/16 05/30/16 05/29/16 Range/Units 10:45 07:23 21:24 WBC (4.5-11.0) 10^3/ul RBC (3.5-6.1) 10^6/uL Hgb (12.0-16.0) gm/dL Hct (36.0-48.0) % MCV (80.0-105.0) fL MCH (25.0-35.0) pg MCHC (31.0-37.0) g/dl RDW (11.5-14.5) % Plt Count (120.0-450.0) 10^3/uL MPV (7.0-11.0) fl Gran % (50.0-68.0) % Lymph % (Auto) (22.0-35.0) % [place] % (Auto) (1.0-6.0) % Eos % (Auto) (1.5-5.0) % Baso % (Auto) (0.0-3.0) % Gran # (1.4-6.5) Lymph # (1.2-3.4) [place] # (0.1-0.6) Eos # (0.0-0.7) Baso # (0.0-2.0) K/mm3 pCO2 (35-45) mm/Hg pO2 (80-100) mm/Hg HCO3 (21-28) mmol/L ABG pH (7.35-7.45) ABG Total CO2 (22-28) mmol.L ABG O2 Saturation (95-98) % ABG Base Excess (-2.0-3.0) mmol/L ABG Potassium (3.6-5.2) mmol/L Glucose (65-105) mg/dl Lactate (0.7-2.1) mmol/L FiO2 % Sodium (132-148) mmol/L Potassium (3.6-5.0) mmol/L Chloride (98-107) mmol/L Carbon Dioxide (21-33) mmol/L Anion Gap (10-20) BUN (7-21) mg/dL Creatinine (0.5-1.4) mg/dL Est GFR ( Amer) Est GFR (Non-Af Amer) POC Glucose (mg/dL) 144 H 140 H (65-110) mg/dL Random Glucose (70-110) mg/dL Calcium (8.4-10.5) mg/dL Magnesium (1.7-2.2) mg/dL Total Bilirubin (0.2-1.3) mg/dL AST (15-39) U/L ALT (7-56) U/L Alkaline Phosphatase (38-133) U/L Total Protein (5.8-8.3) g/dL Albumin (3.0-4.8) g/dL Globulin gm/dL Albumin/Globulin Ratio (1.1-1.8) 25-OH Vitamin D Total < 12.8 L (30.0-100.0) NG/ML Arterial Blood Potassium (3.6-5.2) mmol/L 05/29/16 05/29/16 05/29/16 Range/Units 16:06 11:03 07:19 WBC (4.5-11.0) 10^3/ul RBC (3.5-6.1) 10^6/uL Hgb (12.0-16.0) gm/dL Hct (36.0-48.0) % MCV (80.0-105.0) fL MCH (25.0-35.0) pg MCHC (31.0-37.0) g/dl RDW (11.5-14.5) % Plt Count (120.0-450.0) 10^3/uL MPV (7.0-11.0) fl Gran % (50.0-68.0) % Lymph % (Auto) (22.0-35.0) % [place] % (Auto) (1.0-6.0) % Eos % (Auto) (1.5-5.0) % Baso % (Auto) (0.0-3.0) % Gran # (1.4-6.5) Lymph # (1.2-3.4) [place] # (0.1-0.6) Eos # (0.0-0.7) Baso # (0.0-2.0) K/mm3 pCO2 (35-45) mm/Hg pO2 (80-100) mm/Hg HCO3 (21-28) mmol/L ABG pH (7.35-7.45) ABG Total CO2 (22-28) mmol.L ABG O2 Saturation (95-98) % ABG Base Excess (-2.0-3.0) mmol/L ABG Potassium (3.6-5.2) mmol/L Glucose (65-105) mg/dl Lactate (0.7-2.1) mmol/L FiO2 % Sodium (132-148) mmol/L Potassium (3.6-5.0) mmol/L Chloride (98-107) mmol/L Carbon Dioxide (21-33) mmol/L Anion Gap (10-20) BUN (7-21) mg/dL Creatinine (0.5-1.4) mg/dL Est GFR ( Amer) Est GFR (Non-Af Amer) POC Glucose (mg/dL) 222 H 150 H 282 H (65-110) mg/dL Random Glucose (70-110) mg/dL Calcium (8.4-10.5) mg/dL Magnesium (1.7-2.2) mg/dL Total Bilirubin (0.2-1.3) mg/dL AST (15-39) U/L ALT (7-56) U/L Alkaline Phosphatase (38-133) U/L Total Protein (5.8-8.3) g/dL Albumin (3.0-4.8) g/dL Globulin gm/dL Albumin/Globulin Ratio (1.1-1.8) 25-OH Vitamin D Total (30.0-100.0) NG/ML Arterial Blood Potassium (3.6-5.2) mmol/L Laboratory Results - last 24 hr 05/29/16 05/29/16 05/29/16 07:19 11:03 16:06 WBC RBC Hgb Hct MCV MCH MCHC RDW Plt Count MPV Gran % Lymph % (Auto) [place] % (Auto) Eos % (Auto) Baso % (Auto) Gran # Lymph # [place] # Eos # Baso # pCO2 pO2 HCO3 ABG pH ABG Total CO2 ABG O2 Saturation ABG Base Excess ABG Potassium Sodium Chloride Glucose Lactate FiO2 Potassium Carbon Dioxide Anion Gap BUN Creatinine Est GFR ( Amer) Est GFR (Non-Af Amer) POC Glucose (mg/dL) 282 H 150 H 222 H Random Glucose Calcium Magnesium Total Bilirubin AST ALT Alkaline Phosphatase Total Protein Albumin Globulin Albumin/Globulin Ratio 25-OH Vitamin D Total Arterial Blood Potassium 05/29/16 05/30/16 05/30/16 21:24 07:23 10:45 WBC RBC Hgb Hct MCV MCH MCHC RDW Plt Count MPV Gran % Lymph % (Auto) [place] % (Auto) Eos % (Auto) Baso % (Auto) Gran # Lymph # [place] # Eos # Baso # pCO2 pO2 HCO3 ABG pH ABG Total CO2 ABG O2 Saturation ABG Base Excess ABG Potassium Sodium Chloride Glucose Lactate FiO2 Potassium Carbon Dioxide Anion Gap BUN Creatinine Est GFR ( Amer) Est GFR (Non-Af Amer) POC Glucose (mg/dL) 140 H 144 H Random Glucose Calcium Magnesium Total Bilirubin AST ALT Alkaline Phosphatase Total Protein Albumin Globulin Albumin/Globulin Ratio 25-OH Vitamin D Total < 12.8 L Arterial Blood Potassium 05/30/16 05/30/16 05/30/16 11:11 15:57 19:50 WBC RBC Hgb Hct MCV MCH MCHC RDW Plt Count MPV Gran % Lymph % (Auto) [place] % (Auto) Eos % (Auto) Baso % (Auto) Gran # Lymph # [place] # Eos # Baso # pCO2 pO2 HCO3 ABG pH ABG Total CO2 ABG O2 Saturation ABG Base Excess ABG Potassium Sodium Chloride Glucose Lactate FiO2 Potassium Carbon Dioxide Anion Gap BUN Creatinine Est GFR ( Amer) Est GFR (Non-Af Amer) POC Glucose (mg/dL) 154 H 146 H 186 H Random Glucose Calcium Magnesium Total Bilirubin AST ALT Alkaline Phosphatase Total Protein Albumin Globulin Albumin/Globulin Ratio 25-OH Vitamin D Total Arterial Blood Potassium 05/30/16 05/30/16 05/31/16 20:20 21:29 05:30 WBC 10.4 RBC 3.83 Hgb 13.4 Hct 40.3 MCV 105.2 H MCH 35.0 MCHC 33.3 RDW 15.2 H Plt Count 196 MPV 10.3 Gran % 88.3 H Lymph % (Auto) 6.6 L [place] % (Auto) 4.9 Eos % (Auto) 0.1 L Baso % (Auto) 0.1 Gran # 9.20 H Lymph # 0.7 L [place] # 0.5 Eos # 0.0 Baso # 0.01 pCO2 32 L pO2 139.0 H HCO3 23.8 ABG pH 7.48 H ABG Total CO2 24.8 ABG O2 Saturation 99.3 H ABG Base Excess 0.9 ABG Potassium 3.0 L Sodium 142.0 143 Chloride 110.0 H 106 Glucose 154 H Lactate 1.7 FiO2 100.0 Potassium 3.7 Carbon Dioxide 25 Anion Gap 16 BUN 97 H Creatinine 1.5 H Est GFR ( Amer) 42 Est GFR (Non-Af Amer) 35 POC Glucose (mg/dL) 110 Random Glucose 93 Calcium 8.7 Magnesium 3.2 H Total Bilirubin 0.6 AST 48 H ALT 92 H Alkaline Phosphatase 112 Total Protein 6.7 Albumin 3.4 Globulin 3.4 Albumin/Globulin Ratio 1.0 L 25-OH Vitamin D Total Arterial Blood Potassium 3.0 L Fingerstick Blood Sugar Results: 131 Critical Care Progress Note - Nutrition Nutrition: Nutrition Category Date Time Status Heart Healthy Diet [DIET] Diets 05/27/16 Dinner Ordered Assessment/Plan - Assessment and Plan (Free Text) Plan: 65 F with PMH of COPD and CHF with EF of 14% presents to with resolved hyoptension and hypoxia. Pt has responded well in the ICU after being given IVF fluid overnight. Pt remains normotensive and without complaints at this time. Pt was seen by Dr. Schulte who recommended stopping the coreg and starting a dobutamine. Pt will be transferred to general medical floor. Neuro: AAO x 3 Monitor for acute change in mental status Cardio: Primacor held at this time Dobutamine drip started Coreg stopped Continue amiodarone BID Cardiology, Dr. Schulte following. Hemodynamically stable Maintain MAP >65 Pulm: Maintain O2 sat > 90% Prednisone 30 mg daily Monitor for respiratory distress Pulmonology, Dr. Parker following. GI: HHD Protonix for GI prophylaxis Nephro: KEITH, creatinine elevated overnight Encourage fluid intake EF 14%, will not start IVF at this time Maintain euvolemia Replenish electrolytes as needed Endo: ISS Maintain euglycemia Heme/ID: Afebrile, no leukocytosis Maintain normothermia PPX Protonix Heparin Seen, reviewed, and discussed with attending Nina PGY-1 <Lila GARCIA,Inamul H - Last Filed: 05/31/16 16:24> CCU Objective - Vital Signs / Intake & Output Vital Signs (Last 4 hours): Vital Signs Pulse Resp BP Pulse Ox 05/31/16 14:00 80 36 H 87/33 L 88 L 05/31/16 13:00 73 50 H 97/42 L 90 L Intake and Output (Last 8hrs): Intake & Output 05/31/16 05/31/16 05/31/16 06:59 14:59 22:59 Intake Total 400 Output Total 300 Balance 100 Intake: IV 250 Left Hand 250 Oral 150 Output: Urine 300 Urethral (Cota) 300 Other: Voiding Method Indwelling Catheter - Medications Active Medications: Active Medications Generic Name Dose Route Start Last Admin Trade Name Freq PRN Reason Stop Dose Admin Al Hydrox/Mg Hydrox/Simethicone 15 ml 05/23/16 12:39 05/31/16 12:00 Maalox Plus 30 Ml PO Not Given Q4 BELEM Amiodarone HCl 200 mg 05/31/16 15:03 Cordarone PO BID [facility] Aspirin 81 mg 05/26/16 14:45 05/31/16 10:00 Aspirin Chewable PO 81 mg DAILY BELEM Administration Atorvastatin Calcium 20 mg 05/26/16 17:00 05/30/16 17:07 Lipitor PO 20 mg DIN BELEM Administration Heparin Sodium (Porcine) 5,000 units 05/26/16 12:15 05/31/16 10:00 Heparin SC 5,000 units Q12 BELEM Administration Protocol Dobutamine HCl/Dextrose 250 mls @ 6.153 mls/hr 05/31/16 15:05 05/31/16 15:29 Dobutamine/Dextrose 5% 500mg/250ml IV 6.153 mls/hr .Q24H PRN Administration TITRATE PER PROTOCOL Protocol 5 MCG/KG/MIN Insulin Human Regular 0 units 05/23/16 22:00 05/31/16 12:12 Humulin R Med SC Not Given ACHS [facility] Protocol Levalbuterol HCl 0.63 mg 05/25/16 08:00 05/31/16 13:24 Xopenex IH Not Given [id number] [facility] Nystatin 5 ml 05/23/16 18:00 05/31/16 15:14 Nystatin Oral Susp PO 5 ml QID BELEM Administration Pantoprazole Sodium 40 mg 05/25/16 10:00 05/31/16 10:00 Protonix Inj IVP 40 mg DAILY [facility] Administration Prednisone 30 mg 05/30/16 10:00 05/31/16 11:38 Prednisone Tab PO 30 mg DAILY [facility] Administration Ramipril 1.25 mg 05/31/16 10:00 05/31/16 11:38 Altace PO 1.25 mg DAILY [facility] Administration - Patient Studies Lab Studies: Lab Studies 05/31/16 05/30/16 05/30/16 Range/Units 05:30 21:29 20:20 WBC 10.4 (4.5-11.0) 10^3/ul RBC 3.83 (3.5-6.1) 10^6/uL Hgb 13.4 (12.0-16.0) gm/dL Hct 40.3 (36.0-48.0) % MCV 105.2 H (80.0-105.0) fL MCH 35.0 (25.0-35.0) pg MCHC 33.3 (31.0-37.0) g/dl RDW 15.2 H (11.5-14.5) % Plt Count 196 (120.0-450.0) 10^3/uL MPV 10.3 (7.0-11.0) fl Gran % 88.3 H (50.0-68.0) % Lymph % (Auto) 6.6 L (22.0-35.0) % [place] % (Auto) 4.9 (1.0-6.0) % Eos % (Auto) 0.1 L (1.5-5.0) % Baso % (Auto) 0.1 (0.0-3.0) % Gran # 9.20 H (1.4-6.5) Lymph # 0.7 L (1.2-3.4) [place] # 0.5 (0.1-0.6) Eos # 0.0 (0.0-0.7) Baso # 0.01 (0.0-2.0) K/mm3 pCO2 32 L (35-45) mm/Hg pO2 139.0 H (80-100) mm/Hg HCO3 23.8 (21-28) mmol/L ABG pH 7.48 H (7.35-7.45) ABG Total CO2 24.8 (22-28) mmol.L ABG O2 Saturation 99.3 H (95-98) % ABG Base Excess 0.9 (-2.0-3.0) mmol/L ABG Potassium 3.0 L (3.6-5.2) mmol/L Glucose 154 H (65-105) mg/dl Lactate 1.7 (0.7-2.1) mmol/L FiO2 100.0 % Sodium 143 142.0 (132-148) mmol/L Potassium 3.7 (3.6-5.0) mmol/L Chloride 106 110.0 H (98-107) mmol/L Carbon Dioxide 25 (21-33) mmol/L Anion Gap 16 (10-20) BUN 97 H (7-21) mg/dL Creatinine 1.5 H (0.5-1.4) mg/dL Est GFR ( Amer) 42 Est GFR (Non-Af Amer) 35 POC Glucose (mg/dL) 110 (65-110) mg/dL Random Glucose 93 (70-110) mg/dL Calcium 8.7 (8.4-10.5) mg/dL Magnesium 3.2 H (1.7-2.2) mg/dL Total Bilirubin 0.6 (0.2-1.3) mg/dL AST 48 H (15-39) U/L ALT 92 H (7-56) U/L Alkaline Phosphatase 112 (38-133) U/L Total Protein 6.7 (5.8-8.3) g/dL Albumin 3.4 (3.0-4.8) g/dL Globulin 3.4 gm/dL Albumin/Globulin Ratio 1.0 L (1.1-1.8) 25-OH Vitamin D Total (30.0-100.0) NG/ML Arterial Blood Potassium 3.0 L (3.6-5.2) mmol/L 05/30/16 05/30/16 05/30/16 Range/Units 19:50 15:57 11:11 WBC (4.5-11.0) 10^3/ul RBC (3.5-6.1) 10^6/uL Hgb (12.0-16.0) gm/dL Hct (36.0-48.0) % MCV (80.0-105.0) fL MCH (25.0-35.0) pg MCHC (31.0-37.0) g/dl RDW (11.5-14.5) % Plt Count (120.0-450.0) 10^3/uL MPV (7.0-11.0) fl Gran % (50.0-68.0) % Lymph % (Auto) (22.0-35.0) % [place] % (Auto) (1.0-6.0) % Eos % (Auto) (1.5-5.0) % Baso % (Auto) (0.0-3.0) % Gran # (1.4-6.5) Lymph # (1.2-3.4) [place] # (0.1-0.6) Eos # (0.0-0.7) Baso # (0.0-2.0) K/mm3 pCO2 (35-45) mm/Hg pO2 (80-100) mm/Hg HCO3 (21-28) mmol/L ABG pH (7.35-7.45) ABG Total CO2 (22-28) mmol.L ABG O2 Saturation (95-98) % ABG Base Excess (-2.0-3.0) mmol/L ABG Potassium (3.6-5.2) mmol/L Glucose (65-105) mg/dl Lactate (0.7-2.1) mmol/L FiO2 % Sodium (132-148) mmol/L Potassium (3.6-5.0) mmol/L Chloride (98-107) mmol/L Carbon Dioxide (21-33) mmol/L Anion Gap (10-20) BUN (7-21) mg/dL Creatinine (0.5-1.4) mg/dL Est GFR ( Amer) Est GFR (Non-Af Amer) POC Glucose (mg/dL) 186 H 146 H 154 H (65-110) mg/dL Random Glucose (70-110) mg/dL Calcium (8.4-10.5) mg/dL Magnesium (1.7-2.2) mg/dL Total Bilirubin (0.2-1.3) mg/dL AST (15-39) U/L ALT (7-56) U/L Alkaline Phosphatase (38-133) U/L Total Protein (5.8-8.3) g/dL Albumin (3.0-4.8) g/dL Globulin gm/dL Albumin/Globulin Ratio (1.1-1.8) 25-OH Vitamin D Total (30.0-100.0) NG/ML Arterial Blood Potassium (3.6-5.2) mmol/L 05/30/16 05/30/16 05/29/16 Range/Units 10:45 07:23 21:24 WBC (4.5-11.0) 10^3/ul RBC (3.5-6.1) 10^6/uL Hgb (12.0-16.0) gm/dL Hct (36.0-48.0) % MCV (80.0-105.0) fL MCH (25.0-35.0) pg MCHC (31.0-37.0) g/dl RDW (11.5-14.5) % Plt Count (120.0-450.0) 10^3/uL MPV (7.0-11.0) fl Gran % (50.0-68.0) % Lymph % (Auto) (22.0-35.0) % [place] % (Auto) (1.0-6.0) % Eos % (Auto) (1.5-5.0) % Baso % (Auto) (0.0-3.0) % Gran # (1.4-6.5) Lymph # (1.2-3.4) [place] # (0.1-0.6) Eos # (0.0-0.7) Baso # (0.0-2.0) K/mm3 pCO2 (35-45) mm/Hg pO2 (80-100) mm/Hg HCO3 (21-28) mmol/L ABG pH (7.35-7.45) ABG Total CO2 (22-28) mmol.L ABG O2 Saturation (95-98) % ABG Base Excess (-2.0-3.0) mmol/L ABG Potassium (3.6-5.2) mmol/L Glucose (65-105) mg/dl Lactate (0.7-2.1) mmol/L FiO2 % Sodium (132-148) mmol/L Potassium (3.6-5.0) mmol/L Chloride (98-107) mmol/L Carbon Dioxide (21-33) mmol/L Anion Gap (10-20) BUN (7-21) mg/dL Creatinine (0.5-1.4) mg/dL Est GFR ( Amer) Est GFR (Non-Af Amer) POC Glucose (mg/dL) 144 H 140 H (65-110) mg/dL Random Glucose (70-110) mg/dL Calcium (8.4-10.5) mg/dL Magnesium (1.7-2.2) mg/dL Total Bilirubin (0.2-1.3) mg/dL AST (15-39) U/L ALT (7-56) U/L Alkaline Phosphatase (38-133) U/L Total Protein (5.8-8.3) g/dL Albumin (3.0-4.8) g/dL Globulin gm/dL Albumin/Globulin Ratio (1.1-1.8) 25-OH Vitamin D Total < 12.8 L (30.0-100.0) NG/ML Arterial Blood Potassium (3.6-5.2) mmol/L 05/29/16 05/29/16 05/29/16 Range/Units 16:06 11:03 07:19 WBC (4.5-11.0) 10^3/ul RBC (3.5-6.1) 10^6/uL Hgb (12.0-16.0) gm/dL Hct (36.0-48.0) % MCV (80.0-105.0) fL MCH (25.0-35.0) pg MCHC (31.0-37.0) g/dl RDW (11.5-14.5) % Plt Count (120.0-450.0) 10^3/uL MPV (7.0-11.0) fl Gran % (50.0-68.0) % Lymph % (Auto) (22.0-35.0) % [place] % (Auto) (1.0-6.0) % Eos % (Auto) (1.5-5.0) % Baso % (Auto) (0.0-3.0) % Gran # (1.4-6.5) Lymph # (1.2-3.4) [place] # (0.1-0.6) Eos # (0.0-0.7) Baso # (0.0-2.0) K/mm3 pCO2 (35-45) mm/Hg pO2 (80-100) mm/Hg HCO3 (21-28) mmol/L ABG pH (7.35-7.45) ABG Total CO2 (22-28) mmol.L ABG O2 Saturation (95-98) % ABG Base Excess (-2.0-3.0) mmol/L ABG Potassium (3.6-5.2) mmol/L Glucose (65-105) mg/dl Lactate (0.7-2.1) mmol/L FiO2 % Sodium (132-148) mmol/L Potassium (3.6-5.0) mmol/L Chloride (98-107) mmol/L Carbon Dioxide (21-33) mmol/L Anion Gap (10-20) BUN (7-21) mg/dL Creatinine (0.5-1.4) mg/dL Est GFR ( Amer) Est GFR (Non-Af Amer) POC Glucose (mg/dL) 222 H 150 H 282 H (65-110) mg/dL Random Glucose (70-110) mg/dL Calcium (8.4-10.5) mg/dL Magnesium (1.7-2.2) mg/dL Total Bilirubin (0.2-1.3) mg/dL AST (15-39) U/L ALT (7-56) U/L Alkaline Phosphatase (38-133) U/L Total Protein (5.8-8.3) g/dL Albumin (3.0-4.8) g/dL Globulin gm/dL Albumin/Globulin Ratio (1.1-1.8) 25-OH Vitamin D Total (30.0-100.0) NG/ML Arterial Blood Potassium (3.6-5.2) mmol/L Laboratory Results - last 24 hr 05/29/16 05/29/16 05/29/16 07:19 11:03 16:06 WBC RBC Hgb Hct MCV MCH MCHC RDW Plt Count MPV Gran % Lymph % (Auto) [place] % (Auto) Eos % (Auto) Baso % (Auto) Gran # Lymph # [place] # Eos # Baso # pCO2 pO2 HCO3 ABG pH ABG Total CO2 ABG O2 Saturation ABG Base Excess ABG Potassium Sodium Chloride Glucose Lactate FiO2 Potassium Carbon Dioxide Anion Gap BUN Creatinine Est GFR ( Amer) Est GFR (Non-Af Amer) POC Glucose (mg/dL) 282 H 150 H 222 H Random Glucose Calcium Magnesium Total Bilirubin AST ALT Alkaline Phosphatase Total Protein Albumin Globulin Albumin/Globulin Ratio 25-OH Vitamin D Total Arterial Blood Potassium 05/29/16 05/30/16 05/30/16 21:24 07:23 10:45 WBC RBC Hgb Hct MCV MCH MCHC RDW Plt Count MPV Gran % Lymph % (Auto) [place] % (Auto) Eos % (Auto) Baso % (Auto) Gran # Lymph # [place] # Eos # Baso # pCO2 pO2 HCO3 ABG pH ABG Total CO2 ABG O2 Saturation ABG Base Excess ABG Potassium Sodium Chloride Glucose Lactate FiO2 Potassium Carbon Dioxide Anion Gap BUN Creatinine Est GFR ( Amer) Est GFR (Non-Af Amer) POC Glucose (mg/dL) 140 H 144 H Random Glucose Calcium Magnesium Total Bilirubin AST ALT Alkaline Phosphatase Total Protein Albumin Globulin Albumin/Globulin Ratio 25-OH Vitamin D Total < 12.8 L Arterial Blood Potassium 05/30/16 05/30/16 05/30/16 11:11 15:57 19:50 WBC RBC Hgb Hct MCV MCH MCHC RDW Plt Count MPV Gran % Lymph % (Auto) [place] % (Auto) Eos % (Auto) Baso % (Auto) Gran # Lymph # [place] # Eos # Baso # pCO2 pO2 HCO3 ABG pH ABG Total CO2 ABG O2 Saturation ABG Base Excess ABG Potassium Sodium Chloride Glucose Lactate FiO2 Potassium Carbon Dioxide Anion Gap BUN Creatinine Est GFR ( Amer) Est GFR (Non-Af Amer) POC Glucose (mg/dL) 154 H 146 H 186 H Random Glucose Calcium Magnesium Total Bilirubin AST ALT Alkaline Phosphatase Total Protein Albumin Globulin Albumin/Globulin Ratio 25-OH Vitamin D Total Arterial Blood Potassium 05/30/16 05/30/16 05/31/16 20:20 21:29 05:30 WBC 10.4 RBC 3.83 Hgb 13.4 Hct 40.3 MCV 105.2 H MCH 35.0 MCHC 33.3 RDW 15.2 H Plt Count 196 MPV 10.3 Gran % 88.3 H Lymph % (Auto) 6.6 L [place] % (Auto) 4.9 Eos % (Auto) 0.1 L Baso % (Auto) 0.1 Gran # 9.20 H Lymph # 0.7 L [place] # 0.5 Eos # 0.0 Baso # 0.01 pCO2 32 L pO2 139.0 H HCO3 23.8 ABG pH 7.48 H ABG Total CO2 24.8 ABG O2 Saturation 99.3 H ABG Base Excess 0.9 ABG Potassium 3.0 L Sodium 142.0 143 Chloride 110.0 H 106 Glucose 154 H Lactate 1.7 FiO2 100.0 Potassium 3.7 Carbon Dioxide 25 Anion Gap 16 BUN 97 H Creatinine 1.5 H Est GFR ( Amer) 42 Est GFR (Non-Af Amer) 35 POC Glucose (mg/dL) 110 Random Glucose 93 Calcium 8.7 Magnesium 3.2 H Total Bilirubin 0.6 AST 48 H ALT 92 H Alkaline Phosphatase 112 Total Protein 6.7 Albumin 3.4 Globulin 3.4 Albumin/Globulin Ratio 1.0 L 25-OH Vitamin D Total Arterial Blood Potassium 3.0 L Critical Care Progress Note - Nutrition Nutrition: Nutrition Category Date Time Status Heart Healthy Diet [DIET] Diets 05/27/16 Dinner Ordered Attending/Attestation - Attestation I have personally seen and examined this patient.: Yes I have fully participated in the care of the patient.: Yes I have reviewed all pertinent clinical information: Yes Notes (Text): 05/31/16 16:21 65 y/o F known to the ICU team from 1 week prior- cardiac arrest. Unclear reason for transfer back to ICU overnight. Possible isolated episode of Hypotension that resolved rather quickly. pt has background of end-stage CHF and COPD Milrinone placed on hold due to arrythmia. Cardiology aware of the situation, started Dobutamine . Diuresis continued. BP stable. ON steroids, nebulizers for COPD. No active wheezing. 3L NC 92%.CXR clear. dvt p- Heparin sq. Poor prognosis- need paliative care. cc time 55 min
--- NOTE | 2016-05-31 17:16 | US ---
HISTORY: Leg pain and swelling. Evaluate for DVT PHYSICIAN(S): Michael Rush MD. TECHNIQUE: Duplex sonography and color-flow Doppler with graded compression were used to evaluate the deep venous systems of both lower extremities. FINDINGS: The visualized deep venous systems of both lower extremities are sonographically normal and compressible. Normal wave forms and augmentation are seen. There is no sonographic evidence for deep venous thrombosis in the visualized segments of both lower extremities. IMPRESSION: No sonographic evidence for deep venous thrombosis in the visualized segments of both lower extremities.
[2016-06-01] MEDS: Alum-Mag Hydrox-Simethicone Susp (30 mL) PO SCH ×7 (00:10→21:36)
[2016-06-01] MEDS: Levalbuterol 0.63 MG/3 ML Inhal Soln UD IH SCH ×3 (01:45→13:04)
[2016-06-01] MEDS ORDERED: oxyCODONE 5 mg Immediate Release Tab PO STA (02:18)
[2016-06-01 06:35] LABS: HEMATOCRIT 38.9 % (36.0-48.0); MEAN CORPUSCULAR HEMOGLOBIN 34.8 pg (25.0-35.0); MEAN CORPUSCULAR HGB CONC 33.4 g/dl (31.0-37.0); MEAN PLATELET VOLUME 10.5 fl (7.0-11.0); RED CELL DISTRIBUTION WIDTH 15.1 % (11.5-14.5)
[2016-06-01 06:40] LABS: WHITE BLOOD COUNT 6.5 10^3/ul (4.5-11.0)
[2016-06-01 07:28] LABS: TROPONIN I 0.08 ng/mL
[2016-06-01 07:33] LABS: ALKALINE PHOSPHATASE 92 U/L (38-133); ALT/SGPT 75 U/L (7-56); AST/SGOT 38 U/L (15-39); BILIRUBIN,TOTAL 1.2 mg/dL (0.2-1.3); BLOOD UREA NITROGEN 67 mg/dL (7-21); CALCIUM 7.9 mg/dL (8.4-10.5); CARBON DIOXIDE 23 mmol/L (21-33); CHLORIDE 97 mmol/L (98-107); GFR AFRICAN-AMERICAN > 60; GLUCOSE,RANDOM 262 mg/dL (70-110); POTASSIUM 3.6 mmol/L (3.6-5.0); SODIUM 134 mmol/L (132-148)
--- NOTE | 2016-06-01 07:41 | CP.PCM.PN ---
Subjective - Date & Time of Evaluation Date of Evaluation: 06/01/16 Time of Evaluation: 06:00 - Subjective Subjective: Evaluated patient for c/o cp more on left then right, with pain and tenderness, also related with deep breathing. Repeat CXR today shows slight decrease in volume on the left side, prior CXR reading also suggest possible sub hilar left airbroncograms. Patient had low grade temp yesterday, was lethargic and hypotensive yesterday with some worsening hypoxia, increasing the suspicion of atelectesis, aspirate, early pna. Also patient has received CPR in the same area which could have restricted her breathing as well. 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 Parker about the patient and xray finding will start abx for now. Blood cultures x2, procalcitonin, troponin also ordered. Objective - Vital Signs/Intake and Output Vital Signs (last 24 hours): Temp Pulse Resp BP Pulse Ox 97.6 F 74 23 93/57 L 96 06/01/16 00:00 06/01/16 06:00 06/01/16 06:00 06/01/16 06:00 06/01/16 06:00 Intake and Output: 06/01/16 06/01/16 06:59 18:59 Intake Total 195 Output Total 400 Balance -205 - Medications Medications: Current Medications Al Hydrox/Mg Hydrox/Simethicone (Maalox Plus 30 Ml) 15 ml PO Q4 [facility] Last Admin: 06/01/16 07:26 Dose: Not Given Amiodarone HCl (Cordarone) 200 mg PO BID [facility] Last Admin: 05/31/16 17:44 Dose: 200 mg Aspirin (Aspirin Chewable) 81 mg PO DAILY [facility] Last Admin: 05/31/16 10:00 Dose: 81 mg Atorvastatin Calcium (Lipitor) 20 mg PO DIN [facility] Last Admin: 05/31/16 17:43 Dose: 20 mg Doxycycline Hyclate (Doryx) 100 mg PO Q12 [facility] PRN Reason: Protocol Heparin Sodium (Porcine) (Heparin) 5,000 units SC Q12 [facility] PRN Reason: Protocol Last Admin: 05/31/16 21:00 Dose: 5,000 units Dobutamine HCl/Dextrose (Dobutamine/Dextrose 5% 500mg/250ml) 250 mls @ 6.153 mls/hr IV .Q24H PRN; Protocol; 5 MCG/KG/MIN PRN Reason: TITRATE PER PROTOCOL Last Admin: 05/31/16 15:29 Dose: 6.153 mls/hr Ceftriaxone Sodium (Rocephin 1 Gram Ivpb) 100 mls @ 100 mls/hr IVPB DAILY [facility] PRN Reason: Protocol Insulin Human Regular (Humulin R Med) 0 units SC ACHS [facility] PRN Reason: Protocol Last Admin: 05/31/16 22:08 Dose: Not Given Levalbuterol HCl (Xopenex) 0.63 mg IH [id number] [facility] Last Admin: 06/01/16 01:45 Dose: Not Given Nystatin (Nystatin Oral Susp) 5 ml PO QID [facility] Last Admin: 05/31/16 21:00 Dose: 5 ml Pantoprazole Sodium (Protonix Inj) 40 mg IVP DAILY [facility] Last Admin: 05/31/16 10:00 Dose: 40 mg Prednisone (Prednisone Tab) 20 mg PO DAILY [facility] Ramipril (Altace) 1.25 mg PO DAILY [facility] Last Admin: 05/31/16 11:38 Dose: 1.25 mg - Labs Labs: 06/01/16 06:15
[2016-06-01] MEDS: Insulin Reg-MEDIUM-Coverage SC SCH ×3 (07:59→17:58)
--- NOTE | 2016-06-01 08:28 | PN ---
DATE: 06/01/2016 SUBJECTIVE: The patient appears comfortable this morning. She is mildly short of breath but in no acute distress. She remains confused. OBJECTIVE: VITAL SIGNS: Temperature is 97.6, pulse 74, respirations 20-22, blood pressure 93/57. Oxygen saturation on nasal cannula is 96%. HEENT: Normocephalic, atraumatic. No JVD. CARDIOVASCULAR: Positive S1, S2. No S3. LUNGS: Very minimal rhonchi. No wheezing. EXTREMITIES: Mild edema. No cyanosis, no clubbing. Calves are nontender to palpation. GASTROINTESTINAL: Abdomen is soft, nontender, nondistended. Bowel sounds are positive. SKIN: No acute rash. NEUROLOGIC: Limited at the present time. PERTINENT LABORATORY DATA: Chest x-ray was done this morning and reviewed. Again, the x-ray is a poor rotated film. I do not appreciate any new or significant change. Official results are pending. IMPRESSION: 1. Ventricular tachycardia arrest. 2. Respiratory failure. 3. Chronic obstructive pulmonary disease. 4. Coronary artery disease. 5. Advanced cardiomyopathy. 6. Mild anemia. 7. Encephalopathy. PLAN: The patient appears comfortable this morning. She is mildly short of breath, but in no acute distress. She remains confused. I did discuss the case with the night nurse at length. The night nurse stated that the patient had a pretty good night. On physical exam, there is no significant bronchospasm noted. In addition, there is no significant alveolar arterial gradient. I will continue with the current nebulizer treatments and decrease the oral steroids this morning. Cardiology evaluation is ongoing. Input by Dr. Schulte is noted. Repeat a.m. labs are also pending. I will also continue with the aspiration precautions. Unfortunately, the overall status/prognosis of this patient remains poor. All are aware. I will discuss the above with Dr. King. Adam Parker MD cc: [id number] TT: 06/01/2016 08:27:30 Confirmation # [id number] Dictation # [id number] anabell HENRIQUEZ
--- NOTE | 2016-06-01 09:26 | RAD ---
HISTORY: chest pain COMPARISON: 05/30/2016 FINDINGS: LUNGS: No active pulmonary disease. PLEURA: No pleural effusion or pneumothorax. CARDIOVASCULAR: Left subclavian central venous catheter. OSSEOUS STRUCTURES: No significant abnormalities. VISUALIZED UPPER ABDOMEN: Normal. OTHER FINDINGS: None. IMPRESSION: No active disease.
[2016-06-01] MEDS: cefTRIAXone 1 gm 100 ML IVPB SCH (09:40)
[2016-06-01] MEDS: Nystatin 100,000 Units/ml Oral Susp 5 ml UD PO SCH ×4 (09:40→21:36)
--- NOTE | 2016-06-01 11:10 | PN ---
DATE: 06/01/2016 The patient is awake, uncooperative, with decreased appetite. PHYSICAL EXAMINATION: VITAL SIGNS: Blood pressure 105/60, the heart rate is in the 70s. NECK: Negative JVD. LUNGS: Decreased breath sounds bilaterally. HEART: Reveals S1, S2. EXTREMITIES: Without edema. LABORATORY DATA: Hemoglobin is 13, BUN and creatinine are 67 and 1.0. IMPRESSION: 1. End-stage dilated cardiomyopathy. 2. Prerenal azotemia. 3. Chronic obstructive pulmonary disease. 4. Transient hypotension which is better. 5. Weakness. Given these findings, we will continue the patient on her IV dobutamine. Lasix has been on hold. We will follow her BUN and creatinine. The patient needs to be out of bed t o a chair. Michael Schulte MD cc: [id number] TT: 06/01/2016 11:09:21 Confirmation # [id number] Dictation # [id number]
--- NOTE | 2016-06-01 13:03 | CP.PCM.CON ---
History of Present Illness - History of Present Illness History of Present Illness: Palliative consult requested by Dr Cami King notified Reason: Goals of care/advance care planning 65 year old female presented to ED with weakness,altered mental status and decreased appetite. Once admitted she became unresponsive> ventricular fibrillation>CPR> shocked. She stabilized and is currently being managed in the ICU. She remains altered. PMHx: ETOH induced cardiomyopathy, EF 15%, CHF,CAD, follicular lymphoma s/p chemotherapy, respiratory failure, cardiac arrhythmia's, displaced fracture right arm, gait dysfunction, poor functional status Social History:Smoker, alcohol abuse. Lives with significant other Nickolas Alejandro. Son Nilesh Tanner is([phone]) next of kin to contact in an emergency. Family History: Non contributory. Advance Care Planning: The patient does not have and Advance Directive. Review of Systems: unable to obtain, patient has has altered mental status Past Patient History - Infectious Disease Hx of Infectious Diseases: None - Tetanus Immunizations Tetanus Immunization: Up to Date, Unknown - Past Medical History & Family History Past Medical History?: Yes - Past Social History Smoking Status: Current Some Days Smoker - CARDIAC Hx Cardiac Disorders: Yes Hx Congestive Heart Failure: Yes - PULMONARY Hx Chronic Obstructive Pulmonary Disease (COPD): Yes - NEUROLOGICAL Hx Neurological Disorder: Yes (syncope ams) Hx Dizziness: Yes - HEENT Hx HEENT Problems: Yes (eyeglasses) - RENAL Hx Chronic Kidney Disease: No - ENDOCRINE/METABOLIC Hx Diabetes Mellitus Type 1: Yes - HEMATOLOGICAL/ONCOLOGICAL Hx Blood Disorders: Yes (thrombocytopenia) Hx Anemia: Yes (blood transfusion) Hx Cancer: Yes (follicular lymphoma 2007) Hx Chemotherapy: Yes Other/Comment: gastrointestinal ca 2007 - INTEGUMENTARY Hx Dermatological Problems: No (LEFT UPPER ARM IN AND OUT OF PORT.) - MUSCULOSKELETAL/RHEUMATOLOGICAL Hx Arthritis: Yes - GASTROINTESTINAL Hx Diverticulitis: Yes - GENITOURINARY/GYNECOLOGICAL Hx Genitourinary Disorders: No Hx Reproductive Disorders: No - PSYCHIATRIC Hx Emotional Abuse: No Hx Physical Abuse: No Hx Substance Use: No Other/Comment: alcohol abuse - SURGICAL HISTORY Hx Surgeries: Yes Hx Cardiac Catheterization: Yes Hx Coronary Stent: Yes - ANESTHESIA Hx Anesthesia Reactions: Yes (SEE ALLERGIES) Hx Malignant Hyperthermia: No Meds Allergies/Adverse Reactions: Allergies Allergy/AdvReac Type Severity Reaction Status Date / Time diphenhydramine HCl Allergy SHORTNESS Verified 05/22/16 07:02 [From Benadryl] OF BREATH anesthesia Allergy Intermediate RASH Uncoded 05/16/16 08:22 anesthetic agents Allergy Mild ANAPHYLAXIS Uncoded 05/22/16 07:02 - Medications Medications: Current Medications Al Hydrox/Mg Hydrox/Simethicone (Maalox Plus 30 Ml) 15 ml PO Q4 [facility] Last Admin: 06/01/16 12:16 Dose: 15 ml Amiodarone HCl (Cordarone) 200 mg PO BID [facility] Last Admin: 06/01/16 09:41 Dose: 200 mg Aspirin (Aspirin Chewable) 81 mg PO DAILY [facility] Last Admin: 06/01/16 09:40 Dose: 81 mg Atorvastatin Calcium (Lipitor) 20 mg PO DIN [facility] Last Admin: 05/31/16 17:43 Dose: 20 mg Doxycycline Hyclate (Doryx) 100 mg PO Q12 [facility] PRN Reason: Protocol Last Admin: 06/01/16 09:40 Dose: 100 mg Heparin Sodium (Porcine) (Heparin) 5,000 units SC Q12 [facility] PRN Reason: Protocol Last Admin: 06/01/16 09:39 Dose: 5,000 units Dobutamine HCl/Dextrose (Dobutamine/Dextrose 5% 500mg/250ml) 250 mls @ 6.153 mls/hr IV .Q24H PRN; Protocol; 5 MCG/KG/MIN PRN Reason: TITRATE PER PROTOCOL Last Admin: 05/31/16 15:29 Dose: 6.153 mls/hr Ceftriaxone Sodium (Rocephin 1 Gram Ivpb) 100 mls @ 100 mls/hr IVPB DAILY [facility] PRN Reason: Protocol Last Admin: 06/01/16 09:40 Dose: 100 mls/hr Insulin Human Regular (Humulin R Med) 0 units SC ACHS [facility] PRN Reason: Protocol Last Admin: 06/01/16 12:12 Dose: Not Given Levalbuterol HCl (Xopenex) 0.63 mg IH [id number] [facility] Last Admin: 06/01/16 07:50 Dose: Not Given Nystatin (Nystatin Oral Susp) 5 ml PO QID [facility] Last Admin: 06/01/16 09:40 Dose: 5 ml Pantoprazole Sodium (Protonix Inj) 40 mg IVP DAILY [facility] Last Admin: 06/01/16 09:39 Dose: 40 mg Prednisone (Prednisone Tab) 20 mg PO DAILY [facility] Last Admin: 06/01/16 09:40 Dose: 20 mg Ramipril (Altace) 1.25 mg PO DAILY [facility] Last Admin: 06/01/16 09:41 Dose: 1.25 mg Physical Exam - Constitutional Appears: Cachectic, Chronically Ill - Head Exam Head Exam: NORMAL INSPECTION - Eye Exam Eye Exam: Normal appearance, PERRL - ENT Exam ENT Exam: Mucous Membranes Moist, Normal Oropharynx - Neck Exam Neck exam: Positive for: Normal Inspection - Respiratory Exam Respiratory Exam: Decreased Breath Sounds, NORMAL BREATHING PATTERN - Cardiovascular Exam Cardiovascular Exam: Irregular Rhythm, +S1, +S2 - GI/Abdominal Exam GI & Abdominal Exam: Diminished Bowel Sounds, Distended, Soft - Extremities Exam Extremities exam: Positive for: pedal edema - Skin Skin Exam: Dry, Pallor - Additional Findings Additional findings: Palliative performance scale rating 30 % Results - Vital Signs Recent Vital Signs: Last Vital Signs Temp 97.6 F 06/01/16 00:00 Pulse 74 06/01/16 06:00 Resp 23 06/01/16 06:00 BP 105/60 06/01/16 09:41 Pulse Ox 96 06/01/16 06:00 - Labs Result Diagrams: 06/01/16 06:15 06/01/16 06:50 Labs: Laboratory Results - last 24 hr 05/30/16 05/31/16 05/31/16 10:30 07:18 11:46 WBC RBC Hgb Hct MCV MCH MCHC RDW Plt Count MPV Sodium Potassium Chloride Carbon Dioxide Anion Gap BUN Creatinine Est GFR ( Amer) Est GFR (Non-Af Amer) POC Glucose (mg/dL) 95 131 H Random Glucose Calcium Total Bilirubin AST ALT Alkaline Phosphatase Troponin I Total Protein Albumin Globulin Albumin/Globulin Ratio Vitamin B12 737 05/31/16 05/31/16 06/01/16 16:10 22:07 06:15 WBC 6.5 D RBC 3.74 Hgb 13.0 Hct 38.9 MCV 104.0 MCH 34.8 MCHC 33.4 RDW 15.1 H Plt Count 176 MPV 10.5 Sodium Potassium Chloride Carbon Dioxide Anion Gap BUN Creatinine Est GFR ( Amer) Est GFR (Non-Af Amer) POC Glucose (mg/dL) 121 H 108 Random Glucose Calcium Total Bilirubin AST ALT Alkaline Phosphatase Troponin I Total Protein Albumin Globulin Albumin/Globulin Ratio Vitamin B12 06/01/16 06:50 WBC RBC Hgb Hct MCV MCH MCHC RDW Plt Count MPV Sodium 134 Potassium 3.6 Chloride 97 L Carbon Dioxide 23 Anion Gap 18 BUN 67 H Creatinine 1.0 Est GFR ( Amer) > 60 Est GFR (Non-Af Amer) 55 POC Glucose (mg/dL) Random Glucose 262 H Calcium 7.9 L Total Bilirubin 1.2 AST 38 ALT 75 H Alkaline Phosphatase 92 Troponin I 0.08 D Total Protein 7.0 Albumin 3.4 Globulin 3.5 Albumin/Globulin Ratio 1.0 L Vitamin B12 Assessment & Plan - Assessment and Plan (Free Text) Assessment: 65 year old female admitted with altered mental status,anorexia, s/p cardiac arrest and CPR,end stage cardiomyopathy, KEITH. Patient and family known to me from previous admissions. The patient is lethargic, altered. She has sternal tenderness when examined. Her boyfriend, Nickolas Alejandro is at bedside. We discussed patient's health status, multiple comorbidities. I explained that patient's in this situation have a poor prognosis. Nickolas feels that patient can pull through this and is hopeful that with some rehab, she can return home soon. I spoke with patient's son Nilesh Tanner via phone. Nilesh an EMT, fully understands mother's situation and extremely poor prognosis. Nilesh is aware that his mother may require intubation and permanent mechanical ventilation in the near future. Nilesh states he would prefer to make his mother DNR/DNI but his brother is opposed to this. He and his brother have had numerous discussions with the attending physician and multiple consultants. Nilesh states that his brother does not accept what is happeningto his mother. Ms. Tanner did not have an Advanced Directive or designated medical POA, therefore both sons are making medical decisions at this time. I offered to have meeting with Nilesh and his brother to discuss goals of care. Nilesh indicated that his brother was not open to further discussion at this time. Time spent in discussion with patients son, boyfriend regarding goals of care and advance care planning, 40 minutes Plan: Continue current medical management. Will follow and assist with establishing future goals of care
--- NOTE | 2016-06-01 23:23 | PN ---
DATE: 06/01/2016 The patient was seen this afternoon at lunchtime and resting comfortably in bed in the ICU. She is much more awake today and, in fact, quite a bit talkative, asking for a boost up in bed. She is complaining of some back pain from her prolonged hospital bed confinement. I explained to her my worries about analgesics in view of her recent week of altered mental status after cardiac arrest. Later in the day, she was transferred to a telemetry-monitored bed. We will continue with aggressive treatment at the request of the patient's family and the case was discussed with cardiology this abhishek cee as well. Tripp King MD cc: [id number] TT: 06/01/2016 23:23:08 Confirmation # [id number] Dictation # [id number] anabell
[2016-06-02] MEDS: Levalbuterol 0.63 MG/3 ML Inhal Soln UD IH SCH ×4 (01:14→19:19)
[2016-06-02] MEDS: Insulin Reg-MEDIUM-Coverage SC SCH ×5 (04:44→22:00)
[2016-06-02] MEDS: Alum-Mag Hydrox-Simethicone Susp (30 mL) PO SCH ×5 (06:33→20:00)
--- NOTE | 2016-06-02 06:54 | PN ---
DATE: 06/02/2016 SUBJECTIVE: The patient appears comfortable this morning. She is not short of breath at rest. She remains mildly confused. PHYSICAL EXAMINATION: VITAL SIGNS: Temperature is 98.4, pulse 84, respirations 20, blood pressure 114 /67. Oxygen saturation on nasal cannula is 97%. HEENT: Normocephalic, atraumatic. NECK: No JVD. CARDIOVASCULAR: Positive S1, S2. No S3. LUNGS: Minimal/less rhonchi. No wheezing. EXTREMITIES: Mild edema. No cyanosis, no clubbing. Calves are nontender to palpation. GASTROINTESTINAL: Abdomen is soft, nontender, nondistended. Bowel sounds are positive. SKIN: No acute rash. NEUROLOGIC: Limited at the present time. IMPRESSION: 1. Ventricular tachycardia arrest. 2. Respiratory failure. 3. Chronic obstructive pulmonary disease. 4. Coronary artery disease. 5. Advanced cardiomyopathy. 6. Mild anemia. 7. Encephalopathy. PLAN: The patient appears comfortable this morning. She is not short of breath at rest. She remains mildly confused. I did discuss the case with the night nurse at length. The night nurse stated that the patient had a good night. On physical exam, her bronchospasm is much less. In addition, the alveolar arterial gradient is also much less. I will continue with the current nebulizer treatments and low-dose oral steroids (decreased yesterday) for now. I would continue with the treatment for the cardiac arrhythmias and cardiomyopathy as per cardiology. Input by Dr. Schulte is noted. The patient is currently on amiodarone, as well as a dobutamine drip. The patient has also been restarted on antibiotics -- as per Dr. Frye. There have been no temperatures over the past 24 hours. Repeat a.m. labs are pending. Clinical status of the patient is significantly improved -- compared to last week. However, again, the overall status/prognosis of this patient remains poor. All are aware. I will discuss the above with Dr. King. Adam Parker MD cc: [id number] TT: 06/02/2016 06:53:58 Confirmation # [id number] Dictation # [id number] shonna [facility] CENTERJhonny
[2016-06-02 07:29] LABS: HEMATOCRIT 39.9 % (36.0-48.0); MEAN CELL VOLUME 101.8 fL (80.0-105.0); MEAN CORPUSCULAR HEMOGLOBIN 34.4 pg (25.0-35.0); MEAN CORPUSCULAR HGB CONC 33.8 g/dl (31.0-37.0); MEAN PLATELET VOLUME 10.2 fl (7.0-11.0); RED CELL DISTRIBUTION WIDTH 14.8 % (11.5-14.5); WHITE BLOOD COUNT 5.9 10^3/ul (4.5-11.0)
[2016-06-02 07:53] LABS: ALKALINE PHOSPHATASE 127 U/L (38-133); ALT/SGPT 72 U/L (7-56); AST/SGOT 53 U/L (15-39); BILIRUBIN,TOTAL 0.7 mg/dL (0.2-1.3); BLOOD UREA NITROGEN 51 mg/dL (7-21); CALCIUM 8.5 mg/dL (8.4-10.5); CARBON DIOXIDE 24 mmol/L (21-33); CHLORIDE 99 mmol/L (98-107); GFR AFRICAN-AMERICAN > 60; GLUCOSE,RANDOM 93 mg/dL (70-110); POTASSIUM 3.6 mmol/L (3.6-5.0); SODIUM 134 mmol/L (132-148); TOTAL PROTEIN 6.9 g/dL (5.8-8.3)
[2016-06-02] MEDS: Nystatin 100,000 Units/ml Oral Susp 5 ml UD PO SCH ×4 (10:39→22:15)
[2016-06-02] MEDS: cefTRIAXone 1 gm 100 ML IVPB SCH (10:40)
[2016-06-02] MEDS ORDERED: DOBUTamine 500mg/250ml D5W 250 ML IV PRN (10:59)
--- NOTE | 2016-06-02 11:11 | PN ---
DATE: 06/02/2016 SUBJECTIVE: The patient remains lethargic, but free of shortness of breath. PHYSICAL EXAMINATION: VITAL SIGNS: Blood pressure is 114/76, the heart rate is in the 70s. NECK: Negative JVD. LUNGS: Decreased breath sounds bilaterally. HEART: Reveals S1, S2. EXTREMITIES: Without edema. LABORATORY DATA: BUN and creatinine are 51 and 0.9. The hemoglobin is 13.5. IMPRESSION: 1. Status post ventricular tachycardia. 2. End-stage dilated cardiomyopathy. 3. History of chronic alcoholism. 4. Chronic obstructive pulmonary disease. 5. Lethargy. PLAN: Given these findings, we will continue her amiodarone 200 b.i.d. We will taper her dobutamine today. Michael Schulte MD cc: [id number] TT: 06/02/2016 11:11:08 Confirmation # [id number] Dictation # [id number] tn
--- NOTE | 2016-06-02 12:23 | PN ---
DATE: 06/02/2016 The patient is a 65-year-old female who was admitted to the [facility] 05/22 with a complaint of shortness of breath, generalized weakness and a sore throat, such that she was not ab le to swallow. 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 The patient was being treated in the [facility] and seemed to improve; however, on 05/24 went into sudden cardiac arrest. Monitor showed ventricul ar tachycardia. The patient was cardioverted, intubated and transferred to the intensive care unit. There she was treated and eventually successfully extubated. There was a change in her mental statu s, she was much more groggy; however, over the past few days, seems to be more awake, speaking more l ucidly. When seen today, she is lying in bed. She is complaining of weakness. She is also complain ing of anterior chest pain on palpation status post CPR. She is also requesting Valium. I explained to the patient that because of her mental status and obtunded state, we would not be able to give he r Valium. We enjoy speaking to her when she is awake and lucid. Anterior thorax is exquisitely tend er on mild palpation. PHYSICAL EXAMINATION: LUNGS: Clear. HEART: Regular. LABORATORY DATA: Show the white blood cell count to be 5.9, hemoglobin and hematocrit are 13.5 and 3 9.9 respectively, platelet count is 167. VITAL SIGNS: Her blood pressure is 114/67. Heart rate is 80 and she is afebrile. She is being followed by Dr. Parker, the enterprise project manager, Dr. Schulte, the tele tech. MEDICATIONS: Include ramipril 1.25 mg daily, aspirin 81 mg daily, amiodarone 200 mg twice a day. Kimberly brannon is on a dobutamine drip. She is receiving doxycycline 100 mg q. 12 hours, heparin subcutaneously q . 12 hours. Her finger sticks are being covered with regular insulin. I ordered a Lidoderm patch to cover the sternum because of her pain. She is on Lipitor 20 mg once a day, prednisone 20 mg once a day, nystatin swish and swallow, Protonix 40 mg intravenously, Rocephin 1 gram q. 24 hours, Ultram 50 mg every 6 hours as needed and Xopenex nebulizer treatments every 6 hours. PLAN: At this point, we are continuing with her current regimen. We are encouraging being more awak e and active. We will continue to follow the patient closely. Baljeet King MD cc: [id number] TT: 06/02/2016 12:23:03 Confirmation # [id number] Dictation # [id number]
[2016-06-02] MEDS: Lidocaine 5% Patch TD SCH (12:32)
[2016-06-03] MEDS: Levalbuterol 0.63 MG/3 ML Inhal Soln UD IH SCH ×4 (01:07→21:06)
[2016-06-03] MEDS: Alum-Mag Hydrox-Simethicone Susp (30 mL) PO SCH ×6 (06:00→20:35)
[2016-06-03] MEDS: Insulin Reg-MEDIUM-Coverage SC SCH ×4 (08:27→22:30)
[2016-06-03] MEDS: cefTRIAXone 1 gm 100 ML IVPB SCH (09:46)
[2016-06-03] MEDS: Lidocaine 5% Patch TD SCH (09:49)
[2016-06-03] MEDS: Nystatin 100,000 Units/ml Oral Susp 5 ml UD PO SCH ×4 (11:07→21:18)
--- NOTE | 2016-06-03 11:16 | PN ---
DATE: 06/03/2016 The patient is awake and complaining of malaise. Chest wall pain is noted from her CPR. PHYSICAL EXAMINATION: VITAL SIGNS: Blood pressure is 100/60. The heart rate is in the 70s. NECK: Negative JVD. LUNGS: Without rales. HEART: Reveals S1, S2. EXTREMITIES: Without edema. LABORATORIES: The BUN is 51/0.9. Hemoglobin is 13. IMPRESSION: 1. Status post cardiopulmonary arrest. 2. History of ventricular tachycardia. 3. End-stage dilated cardiomyopathy. 4. Chronic obstructive pulmonary disease. 5. Chronic alcoholism. 6. Lethargy. PLAN: Given these findings, her prerenal azotemia has improved now that we have held her diuretics. We will continue her aspirin and amiodarone. We will discontinue her dobutamine today. Michael Schulte MD cc: [id number] TT: 06/03/2016 11:14:45 Confirmation # [id number] Dictation # [id number] tn
--- NOTE | 2016-06-03 13:16 | PN ---
DATE: 06/03/2016 SUBJECTIVE: The patient appears to be comfortable without significant respiratory distress. She is somewhat tachypneic, but remains confused. There were no other abnormalities noted when reviewing Dr Sahil Parker's previous notes. PHYSICAL EXAMINATION: GENERAL: The patient is comfortable, in no distress. VITAL SIGNS: Temperature is 98.6, respiratory rate 18, pulse is 80. Blood pressure 120/70, O2 sat 9 7% on supplemental oxygen. HEENT: Normocephalic, atraumatic. NECK: Supple, no JVD, no bruit, no mass, no thyromegaly. CARDIOVASCULAR: Regular rhythm, S1, S2 without murmur, gallop or rub. LUNGS: No rales, rhonchi or wheezing. There is a prolonged expiratory phase, otherwise normal. ABDOMEN: Soft. Bowel sounds normoactive without mass, guarding, rebound or organomegaly. EXTREMITIES: Reveal no clubbing, cyanosis or edema. NEUROLOGIC: Reveals no focal findings. Motor, sensory and coordination are normal. Babinski downgo ing. Deep tendon reflexes normal. LABORATORY STUDIES: Last chest x-ray done 2 days ago shows no pulmonary infiltrates. CLINICAL IMPRESSION: 1. Status post respiratory failure. 2. Underlying chronic obstructive pulmonary disease. 3. Coronary artery disease. 4. Advanced cardiomyopathy. PLAN: We have decreased the prednisone to 10 mg daily. This can be tapered and discontinued as per your followup. There is no need for any further corticosteroids at this point. I would continue usi ng the inhaled bronchodilator and corticosteroids as being received now. Prior to discharge, the pat ient may be able to tolerate a type of an inhaler not requiring hand nebulization. Pulmonary functio n study if possible once the patient is prepared for discharge may be helpful to look for the need fo r any anticholinergics to be used with air trapping. We will follow with you as suggested. The berenice ent should have serial echocardiograms and pulmonary function studies with the use of amiodarone. Th ere are significant abnormalities that develop with the continued use of amiodarone. They are usuall y dose related. We will discuss with cardiology prior to discharge. Thank you for the opportunity to evaluate this patient and we will follow as necessary. Clifton H Burghauser MD cc: [id number] TT: 06/03/2016 13:15:46 Confirmation # [id number] Dictation # [id number] tn
[2016-06-04] MEDS: Alum-Mag Hydrox-Simethicone Susp (30 mL) PO SCH ×6 (00:05→21:50)
[2016-06-04] MEDS: Levalbuterol 0.63 MG/3 ML Inhal Soln UD IH SCH ×4 (01:16→20:40)
[2016-06-04] MEDS: Insulin Reg-MEDIUM-Coverage SC SCH ×4 (07:50→21:49)
[2016-06-04] MEDS: Nystatin 100,000 Units/ml Oral Susp 5 ml UD PO SCH ×4 (09:03→21:51)
[2016-06-04] MEDS: Lidocaine 5% Patch TD SCH (09:03)
[2016-06-04] MEDS: cefTRIAXone 1 gm 100 ML IVPB SCH (09:05)
--- NOTE | 2016-06-04 15:37 | PN ---
DATE: 06/04/2016 The patient is experiencing chest discomfort and shortness of breath as well as productive cough. PHYSICAL EXAMINATION: VITAL SIGNS: Blood pressure 135/59, heart rate 72, temperature 97.9, respirations 18. HEENT: Significant muscle wasting. CHEST: Scattered bilateral coarse crepitations. HEART: S1, S2 regular. EXTREMITIES: Significant muscle wasting. LABORATORIES: Today's blood sugar is 85. Most recent BNP was from the and was within normal li mits except for BUN of 51. Most recent CBC from the revealed white count, platelet count, hemog lobin and hematocrit are within normal limits. ASSESSMENT: 1. Status post cardiopulmonary arrest. 2. End-stage dilated cardiomyopathy. 3. History of ventricular tachycardia. 4. Chronic alcoholism. 5. Chronic obstructive lung disease. RECOMMENDATIONS: Continue current Altace 1.25 mg daily, aspirin 81 mg once a day, amiodarone 200 mg twice a day, prednisone 10 mg once a day, Rocephin 1 gram intravenously daily, Lipitor at 20 mg once a day. Start thiamine at 100 mg orally daily. Edu Oshea MD cc: [id number] TT: 06/04/2016 15:37:13 Confirmation # [id number] Dictation # [id number] en
--- NOTE | 2016-06-04 18:18 | PN ---
DATE: 06/04/2016 LOCATION: Room 267, bed 1. SUBJECTIVE: The patient appears comfortable and appears to be without any significant respiratory di stress. She is complaining bitterly about pain that she cannot describe. She is confused about her general status. She has no insight as to what is really bothering her. I am at a loss to explain he r problems, although I have reviewed Dr. Parker's notes at length. At this point in time, the patie nt states that she has had more pain and discomfort than anything else, but she cannot quantitate whe re, when, how much or what the quality of this pain actually is. PHYSICAL EXAMINATION: GENERAL: She is resting comfortably, in no acute respiratory distress, talking consistently about pa in patches that work sometimes and do not work others. VITAL SIGNS: Her vital signs are stable. She is afebrile with a temperature of 98.6, her heart rate is 80, respiratory rate 18, her pressure is 120/70 and O2 sat is 100% on supplemental oxygen. HEENT: Normocephalic, atraumatic. NECK: Supple, no JVD, no bruit, no mass. No thyromegaly. CARDIOVASCULAR: Regular rhythm, S1, S2 without murmur, gallop or rub. She is correct that you can s ee her heart pumping through her thin chest wall. She states that this is causing her discomfort and pain. I will need to defer to cardiology with regard to this symptom. LUNGS: Clear to percussion and auscultation. There are no rales, rhonchi or wheezing appreciated. There is a prolonged expiratory phase. Otherwise, the exam is normal. ABDOMEN: Soft, bowel sounds normoactive without mass, guarding, rebound or organomegaly. EXTREMITIES: Reveal no clubbing, cyanosis or edema. There is no Homans sign. NEUROLOGIC: Reveals no focal findings and the exam is normal. LYMPHATICS: Lymphadenopathy is not noted. There is nothing palpable in the supraclavicular notch no r in the cervical, inguinal or axillary areas. IMAGING: The last chest x-ray shows no pulmonary infiltrates and the lungs are clear. CLINICAL IMPRESSION: 1. Status post cardiopulmonary failure of unknown etiology. 2. Coronary artery disease. 3. Advanced cardiomyopathy. 4. Status post congestive heart failure. 5. Underlying chronic obstructive pulmonary disease that appears to be mild and no symptoms are note d at this time. There is mild prolonged expiratory phase, but no wheezing. PLAN: I have decreased the prednisone yesterday and will do so again today. There has been no detri mental effects by reducing the corticosteroids. I do not have a clear insight into the patient's linda n syndrome. I will defer that to Dr. King. From a pulmonary point of view, the patient will re quire a pulmonary function, either prior to discharge or after discharge, in the office setting. Per haps additional bronchodilators may be necessary in view of her underlying airtrapping and bronchospa sm. Please note, however, that there is no wheezing present on exam at this time. The patient is al so on amiodarone, which plays a role in pulmonary conditions. A pulmonary function test is imperativ e to follow decreased respiratory status and the development of restrictive lung disease and/or infil trates seen when people are taking amiodarone. This is, of course, dose related and time related. S he will need continued outpatient followup in the future. She is only 65 years of age and has multip le medical problems. She deserves close outpatient attention to all of her abnormal systems such as pulmonary, cardiology, pain and internal medicine. Thank you for the opportunity to see this patient. We will follow with you as is necessary. I do no t know her disposition at this point, but if she is going to be here for a period of time, she should have a PFT while here. You can always call us to reevaluate her status and we will be able to help to determine what additional abnormalities need to be addressed. Thank you for the opportunity to see this patient in evaluation. Clifton Castelan MD cc: [id number] TT: 06/04/2016 18:17:01 Confirmation # [id number] Dictation # [id number] fortino
[2016-06-05] MEDS: Alum-Mag Hydrox-Simethicone Susp (30 mL) PO SCH ×6 (00:50→22:06)
[2016-06-05] MEDS: Levalbuterol 0.63 MG/3 ML Inhal Soln UD IH SCH ×4 (02:45→20:00)
[2016-06-05] MEDS: Insulin Reg-MEDIUM-Coverage SC SCH ×4 (07:39→22:56)
--- NOTE | 2016-06-05 09:02 | PN ---
DATE: 06/05/2016 PULMONARY PROGRESS NOTE LOCATION: 267, bed 1. SUBJECTIVE: The patient still states that she has pain in her left ribs when she takes a breath. Th is is continuous. When she touches her ribs, it hurts as well. This is rather new when compared to the last 2 days that I have seen her. She stating that the pain is getting worse. I am not aware of the exact etiology, but the patient did take a fall approximately a week ago, and rib fracture needs to be excluded. PHYSICAL EXAMINATION: GENERAL: She is resting comfortably in no acute distress, but is complaining of pain in the left rib cage. VITAL SIGNS: Stable. Blood pressure 120/70, O2 100%. HEENT: Normocephalic, atraumatic. NECK: Supple, no JVD, no bruit. CARDIOVASCULAR: Regular rhythm. S1, S2 without murmur, gallop, or rub. LUNGS: Essentially clear to percussion and auscultation. Prolonged expiratory phase. Pain on palpa tion of the left anterior ribs. ABDOMEN: Soft. Bowel sounds normoactive. EXTREMITIES: Reveal no clubbing, cyanosis, or edema, no Homans' sign. NEUROLOGIC: Shows no abnormalities. LYMPHATICS: Negative. CLINICAL IMPRESSION: 1. Rib pain, possible rib fracture. 2. Advanced cardiomyopathy. 3. Status post cardiopulmonary arrest. 4. Coronary artery disease. 5. Status post congestive heart failure. 6. Underlying chronic obstructive pulmonary disease must be evaluated with pulmonary function study. PLAN: Rib studies were ordered stat. We will reevaluate and discuss with Dr. King. From a pul monary point of view as discussed yesterday, there is no acute respiratory problems at this time. Wh en the patient's rib pain resolves, she will need a PFT to see if additional medications are necessar y to treat her entire underlying pulmonary condition. We will follow with you as necessary once the rib films have been completed. We have no further intervention to offer at this time, but we will fo llow with you as requested. Thank you for the opportunity to see this patient. Clifton Castelan MD cc: [id number] TT: 06/05/2016 09:02:10 Confirmation # [id number] Dictation # [id number] jn
[2016-06-05] MEDS: Lidocaine 5% Patch TD SCH (09:41)
[2016-06-05] MEDS: cefTRIAXone 1 gm 100 ML IVPB SCH (09:41)
[2016-06-05] MEDS: Nystatin 100,000 Units/ml Oral Susp 5 ml UD PO SCH ×4 (09:41→22:05)
--- NOTE | 2016-06-05 10:37 | PN ---
DATE: 06/05/2016 CARDIOLOGY FOLLOWUP The patient is without shortness of breath, off of IV inotropic therapy. PHYSICAL EXAMINATION: VITAL SIGNS: Blood pressure is 107/66. The heart rate is in the 70s. NECK: Negative JVD. LUNGS: Decreased breath sounds. HEART: Revealed S1, S2. EXTREMITIES: Without edema. LABORATORY DATA: Hemoglobin is 13.5. Chemistries: Glucose is 134. IMPRESSION: 1. Status post ventricular tachycardia arrest. 2. End-stage dilated cardiomyopathy. 3. Chronic obstructive pulmonary disease. 4. Alcoholism. 5. Lethargy. 6. Anemia. PLAN: Given these findings, the patient has tolerated tapering off of inotropic therapy. The patien t is on p.o. amiodarone. EP has evaluated the patient and felt that her ICD was inappropriate. We will discontinue telemetry today on her current medications. Michael Schulte MD cc: [id number] TT: 06/05/2016 10:36:43 Confirmation # [id number] Dictation # [id number] jn
[2016-06-06] MEDS: Levalbuterol 0.63 MG/3 ML Inhal Soln UD IH SCH ×3 (02:50→13:29)
[2016-06-06] MEDS: Alum-Mag Hydrox-Simethicone Susp (30 mL) PO SCH ×5 (04:27→17:52)
[2016-06-06] MEDS ORDERED: Pantoprazole 40 mg EC Tab PO SCH (07:30)
[2016-06-06] MEDS: Insulin Reg-MEDIUM-Coverage SC SCH ×3 (08:06→17:30)
[2016-06-06 08:35] VITALS: BP 112/70; PULSE 84; RESP 20; TEMP 98.2; O2SAT 99
--- NOTE | 2016-06-06 09:31 | PN ---
DATE: 06/06/2016 SUBJECTIVE: The patient still complains of significant pain in her left rib cage. Although I had ex plained to her at great length yesterday that we need a rib series to see whether or not she has deve loped fractures after her previous fall, when called to the x-ray department, she refused to go. She has no excuse other than that she was in pain. I explained to both the patient and her that if she will not allow us to do the test that we need to do, there is little that we can do for her. She continues to refuse to go for rib films. PHYSICAL EXAMINATION: GENERAL: There is no change. She appears to be comfortable, but complaining of pain. HEENT: Normocephalic, atraumatic. NECK: Supple. CARDIOVASCULAR: Regular rhythm, S1, S2 without murmur, gallop or rub. LUNGS: Clear to percussion and auscultation. There is some pain on palpation of the left anterior r ibs. ABDOMEN: Soft. Bowel sounds normoactive. EXTREMITIES: Reveal no clubbing, cyanosis or edema. NEUROLOGIC: No focal findings. LYMPHATICS: Negative as before. CLINICAL IMPRESSION: 1. Refusal to do the testing that was ordered by the dewaterer operator. 2. Rib pain. Possible rib fractures, although the patient will not allow us to do rib x-rays. 3. Advanced cardiomyopathy. 4. Status post cardiopulmonary arrest. 5. Coronary artery disease. 6. Status post congestive heart failure. 7. Underlying chronic obstructive pulmonary disease that needs further workup with pulmonary functio n studies. PLAN: The patient refused the rib films that I had ordered. She is not able to perform a pulmonary function study at this time due to the pain. She should be treated as vigorously as possible for her pain syndrome. I cannot convince her to go for these x-rays that I had ordered yesterday. Dr. Ej brian will have to try to convince her of such. When she is feeling better from the pain, she should have a complete pulmonary function study to make sure that her underlying COPD is being adequately t reated; I fear not, and would consider adding additional therapy to her treatment plan if it is confi rmed on PFT that additional therapy is actually needed. I will no longer see the patient here in the hospital and she will not allow me to do the testing stiven t I deem important in necessary. Please feel free to contact me if I can be of any further help with the care of this patient. I am able to see her and evaluate her as long as she agrees to have the t esting that I prescribed. In the interim, I would suggest further analgesics for this pain as, if it is rib fractures, this can be very painful. Lungs are clear, however, and do not represent any abigail re COPD at this moment. Thank you for this opportunity to evaluate this patient. Clifton Castelan MD cc: [id number] TT: 06/06/2016 09:31:12 Confirmation # [id number] Dictation # [id number] an
--- NOTE | 2016-06-06 10:18 | PN ---
DATE: 06/05/2016 The patient is a 65-year-old female who was admitted complaining of shortness of breath, generalized weakness, and a sore throat. 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 During her hospital stay, on 05/24/2016 the patient went into sudden cardiac arrest, was intubated, cardioverted. She was seen to be in ventricular tachycardia a t that time; however, she slowly recovered. She was successfully extubated and transferred out of [facility] intensive care unit. She is being followed by Dr. Castelan (the bath house attendant) and Dr. Schulte (the dispatcher service or work). When seen today, she is resting comfortably. She just returned from x-rays of the ibs as ordered by Dr. Castelan. The patient had been complaining of anterior rib pain, which was e xquisitely tender on palpation. This is status post CPR which was performed in the above-mentioned c ode. She is speaking much better in full sentences. She is complaining she does not like the Ensure Clear. She prefers the vanilla flavored Ensure shakes. She still continues to request Librium, cayden reyes multiple times in the past had been told she could not be given because of her drowsiness. At this point, the patient's cardiac status seems to be stabilized. No arrhythmia is seen. We are enco uraging physical therapy for increased ambulation. The patient is known, however, to have a very low ejection fraction between 25 and 30%. We will continue to follow the patient closely. Baljeet King MD cc: [id number] TT: 06/06/2016 10:17:57 Confirmation # [id number] Dictation # [id number] mn
[2016-06-06] MEDS: Nystatin 100,000 Units/ml Oral Susp 5 ml UD PO SCH ×2 (10:57→13:09)
[2016-06-06] MEDS: Lidocaine 5% Patch TD SCH (10:59)
[2016-06-06] MEDS: cefTRIAXone 1 gm 100 ML IVPB SCH (11:01)
--- NOTE | 2016-06-06 14:41 | PN ---
DATE: 06/06/2016 SUBJECTIVE: The patient complains of chest wall pain, which is likely due to her CPR. Attempt at ge tting x-rays was unsuccessful due to patient cooperation. PHYSICAL EXAMINATION: VITAL SIGNS: Blood pressure is 112/70, the heart rate is in the 80s. NECK: Negative JVD. LUNGS: ____ decreased breath sounds. HEART: Reveals S1, S2. EXTREMITIES: Without edema. LABORATORY DATA: Glucose is 94. IMPRESSION: 1. Status post ventricular tachycardia arrest. 2. Status post cardiopulmonary resuscitation. 3. End-stage dilated cardiomyopathy. 4. History of alcoholism. 5. Chronic obstructive pulmonary disease. 6. Weakness. 7. Anemia. Given these findings, the patient's cardiac status has been stabilized on medical therapy. Her chest pain is likely chest wall pain from her CPR which the patient has refused to get x-rays. From a cardiac perspective, the patient is as stable as she can be for transfer to a subacute rehab. Senior Cost Accountant this has ruled out ICD placement in this patient. Michael Schulte MD cc: [id number] TT: 06/06/2016 14:41:40 Confirmation # [id number] Dictation # [id number] anabell
--- NOTE | 2016-09-22 16:26 | DS ---
HISTORY OF PRESENT ILLNESS: The patient is a 55-year-old female who was admitted when she presented to the emergency room complaining of shortness of breath, generalized weakness and a sore throat. 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 During this hospital stay, she suffered a cardiac arrest and was intubated, cardioverted, transferred to the intensive care unit. She was in ventricular tachycardia at that time. The patient was eventually successfully extubated and transferred out of the intensive care unit. She is being followed by Dr. Castelan the vfx artist and Dr. Schulte the plate embosser. She has been complaining of anterior sternal chest pain secondary to fracture suffered during CPR. The pain was exquisite on gentle palpation. The patient's mental status did improve. She was given food supplements. She was continuing to request Librium though this was discouraged because of her mental status. She is known to have an ejection fraction between 25% and 30%. As the patient slowly improved, the case was discussed with her significant other, and after bed became available, she was [place] [facility] [place] [facility] for ambulatory strength. FINAL DIAGNOSES: 1. Chronic obstructive pulmonary disease exacerbation. 2. Ventricular tachycardia with cardiac arrest. 3. Coronary artery disease. 4. Congestive heart failure. Baljeet King MD
== END 2016-06-06 18:00 | DRG 280 ==
LOC: ED 06:23 → ERH 11:34 → 3RSO 12:44 → CCU 05-24 17:52 → 2RNO 05-27 09:56 → CCU 05-30 21:02 → 2RNO 06-01 19:39 → 3RSO 06-05 15:31
PROVIDERS: ADMIT Internal Medicine; ATTEND Internal Medicine
PROC: 3E0F7GC Introduction of Other Therapeutic Substance into Respiratory Tract, Via Natural or Artificial Opening (ICD-10-PCS; 2016-05-23)
PROC: 5A1935Z Respiratory Ventilation, Less than 24 Consecutive Hours (ICD-10-PCS; principal; 2016-05-24)
PROC: 0BH17EZ Insertion of Endotracheal Airway into Trachea, Via Natural or Artificial Opening (ICD-10-PCS; 2016-05-24)
PROC: 5A2204Z Restoration of Cardiac Rhythm, Single (ICD-10-PCS; 2016-05-24)
DX: I42.6 Alcoholic cardiomyopathy (principal); I50.23 Acute on chronic systolic (congestive) heart failure; I21.4 Non-ST elevation (NSTEMI) myocardial infarction; J96.91 Respiratory failure, unspecified with hypoxia; I49.01 Ventricular fibrillation; R57.0 Cardiogenic shock; G93.40 Encephalopathy, unspecified; J44.1 Chronic obstructive pulmonary disease with (acute) exacerbation; I47.2 Ventricular tachycardia; E87.2 Acidosis; J44.0 Chronic obstructive pulmonary disease with (acute) lower respiratory infection; I42.0 Dilated cardiomyopathy; I11.0 Hypertensive heart disease with heart failure; K70.10 Alcoholic hepatitis without ascites; E86.0 Dehydration; J20.9 Acute bronchitis, unspecified; F17.210 Nicotine dependence, cigarettes, uncomplicated; I25.10 Atherosclerotic heart disease of native coronary artery without angina pectoris; Z91.19 Patient's noncompliance with other medical treatment and regimen; M19.90 Unspecified osteoarthritis, unspecified site; I34.0 Nonrheumatic mitral (valve) insufficiency; I27.2 Other secondary pulmonary hypertension; D64.9 Anemia, unspecified; F41.9 Anxiety disorder, unspecified; E87.6 Hypokalemia; S42.301G Unspecified fracture of shaft of humerus, right arm, subsequent encounter for fracture with delayed healing; Z85.72 Personal history of non-Hodgkin lymphomas; I25.2 Old myocardial infarction; Z92.21 Personal history of antineoplastic chemotherapy; Z85.028 Personal history of other malignant neoplasm of stomach; Z95.5 Presence of coronary angioplasty implant and graft

== ENCOUNTER 2016-06-23 14:56 | Inpatient (IN) | payer MEDICARE, OTHER ==
[2016-06-23 14:57] VITALS: PULSE 150
[2016-06-23 15:17] VITALS: BMI 15.0
[2016-06-23] MEDS ORDERED: Sodium Chloride 0.9% 500 ML IV STA (15:18)
--- NOTE | 2016-06-23 15:22 | ED PDOC ---
Arrival/HPI - General Time Seen by Provider: 06/23/16 15:01 Historian: Patient - History of Present Illness Narrative History of Present Illness (Text): 06/23/16 15:19 Patient is a 65 year old female whose past medical history includes pneumonia, ITP, COPD, CHF, hypertension, and end stage cardiomyopathy presents to the emergency department with generalized weakness, chest discomfort and shortness of breath. She also reports cough for the past few weeks and subjective fever. Denies urinary changes, stool changes. PMD: Dr. King Time/Duration: 24 hours Symptom Onset: Gradual Symptom Course: Unchanged Modifying Factors (Text): None Past Medical History - Provider Review Nursing Documentation Reviewed: Yes - Past History Past History: Non-Contributing - Infectious Disease Hx of Infectious Diseases: None - Tetanus Immunization Tetanus Immunization: Up to Date, Unknown - Cardiac Hx Cardiac Disorders: Yes Hx Congestive Heart Failure: Yes - Pulmonary Hx Chronic Obstructive Pulmonary Disease (COPD): Yes - Neurological Hx Neurological Disorder: Yes (syncope ams) Hx Dizziness: Yes - HEENT Hx HEENT Disorder: Yes (eyeglasses) - Renal Hx Renal Disorder: No - Endocrine/Metabolic Hx Diabetes Mellitus Type 1: Yes - Hematological/Oncological Hx Blood Disorders: Yes (thrombocytopenia) Hx Anemia: Yes (blood transfusion) Hx Cancer: Yes (follicular lymphoma 2007) Hx Chemotherapy: Yes Other/Comment: gastrointestinal ca 2007 - Integumentary Hx Dermatological Disorder: No (LEFT UPPER ARM IN AND OUT OF PORT.) - Musculoskeletal/Rheumatological Hx Arthritis: Yes - Gastrointestinal Hx Diverticulitis: Yes - Genitourinary/Gynecological Hx Genitourinary Disorders: No Hx Reproductive Disorders: No - Psychiatric Hx Emotional Abuse: No Hx Physical Abuse: No Hx Substance Use: No Other/Comment: alcohol abuse - Past Surgical History Past Surgical History: Non-Contributing - Surgical History Hx Cardiac Catheterization: Yes Hx Coronary Stent: Yes - Anesthesia Hx Anesthesia Reactions: Yes (SEE ALLERGIES) Hx Malignant Hyperthermia: No - Suicidal Assessment Feels Threatened In Home Enviroment: No Family/Social History - Physician Review Nursing Documentation Reviewed: Yes Family/Social History: Unknown Family HX Smoking Status: Current Some Days Smoker Hx Alcohol Use: Yes Amount per day: 3 Hx Substance Use: No Hx Substance Use Treatment: No Allergies/Home Meds Allergies/Adverse Reactions: Allergies diphenhydramine HCl [From Benadryl] Allergy (Verified 05/22/16 07:02) SHORTNESS OF BREATH IV AND BLOOD PRESSURE LOW anesthesia Allergy (Intermediate, Uncoded 05/16/16 08:22) RASH anesthetic agents Allergy (Mild, Uncoded 05/22/16 07:02) ANAPHYLAXIS Review of Systems - Review of Systems Constitutional: Other (Generalized weakness). absent: Fevers Eyes: absent: Vision Changes ENT: absent: Hearing Changes Respiratory: SOB, Cough Cardiovascular: Chest Pain. absent: Palpitations Gastrointestinal: absent: Abdominal Pain, Nausea, Vomiting Genitourinary Female: absent: Dysuria, Hematuria Musculoskeletal: absent: Neck Pain Skin: absent: Rash Neurological: absent: Headache Endocrine: absent: Diaphoresis Psychiatric: absent: Depression Physical Exam Vital Signs Reviewed: Yes Vital Signs Temp Pulse Resp BP Pulse Ox 06/23/16 17:00 68 18 101/63 97 06/23/16 15:10 98.0 F 77 18 99/61 L 100 Temperature: Afebrile Blood Pressure: Hypotensive Pulse: Regular Respiratory Rate: Normal Appearance: Positive for: Non-Toxic, Comfortable, Ill-Appearing, Cachectic Pain Distress: None Mental Status: Positive for: Alert and Oriented X 3 - Systems Exam Head: Present: Atraumatic, Normocephalic Pupils: Present: PERRL Extroacular Muscles: Present: EOMI Conjunctiva: Present: Normal Mouth: Present: Moist Mucous Membranes Neck: Present: Normal Range of Motion. No: Meningeal Signs Respiratory/Chest: Present: Other (Coarse breath sounds bilaterally. Decreased air entry. ). No: Respiratory Distress, Accessory Muscle Use Cardiovascular: Present: Regular Rate and Rhythm, Normal S1, S2. No: Murmurs Abdomen: Present: Normal Bowel Sounds. No: Tenderness, Distention, Peritoneal Signs Back: Present: Normal Inspection Upper Extremity: Present: Other (Deformity to right upper extremity). No: Cyanosis, Edema Lower Extremity: Present: Normal Inspection. No: Edema Neurological: Present: GCS=15, CN II-XII Intact, Speech Normal Skin: Present: Warm, Dry, Pale. No: Rashes Psychiatric: Present: Alert, Oriented x 3, Normal Insight, Normal Concentration Medical Decision Making ED Course and Treatment: Impression: Patient is a 65 year old female whose past medical history includes pneumonia, ITP, COPD, CHF, hypertension, and end stage cardiomyopathy presents to the emergency department with generalized weakness, chest discomfort and shortness of breath. Differential Diagnosis included but are not limited to: ACS vs PE vs pneumonia vs electrolyte abnormality Plan: -- Chest X-ray -- Labs -- IV fluids -- Antibiotics, -- Reassess and disposition Prior Visits: Notes and results from previous visits were reviewed. Patient last seen in the ED on 05/22/16 for generalized weakness and admitted for Pneumonia, Dehydration Progress Notes: EKG shows NSR at 70 BPM with left bundle branch block, left axis deviation Chest X-ray Television [employer] Teacher : Prisca Goldberg MD IMPRESSION: Left-sided central venous catheter extends to the cavoatrial junction. Chronic appearing interstitial markings appear chronic. Biapical pleural thickening. Deformity of the right mid humerus appears chronic. 06/23/16 17:29 Trop negative. BNP elevated. Patient is complaining of shortness of breath and her presentation is likely multifactorial- with combination of end stage cardiomyopathy and COPD. Could also be developing pneumonia due to her symptoms. First dose of antibiotics were started in ED and will let inpatient team decide on continuation (likely recommended due to COPD). Blood and urine cx ordered. Case discussed with Dr. King, recommends full admission to telemetry. Will hold lasix at this time due to borderline hypotension (some response after fluids) - Lab Interpretations Lab Results: 06/23/16 15:45 06/23/16 15:45 Lab Results 06/23/16 15:45: D-Dimer, Quantitative 0.39 06/23/16 15:45: Sodium 138, Chloride 105, Potassium 4.1, Carbon Dioxide 24, Anion Gap 13, BUN 18, Creatinine 0.7, Est GFR ( Amer) > 60, Est GFR (Non- Af Amer) > 60, Random Glucose 97, Calcium 8.7, Phosphorus 3.2, Magnesium 1.8, Total Bilirubin 0.5, AST 16, ALT 31, Alkaline Phosphatase 190 H, Total Creatine Kinase < 20 L, Troponin I 0.03 D, NT-Pro-B Natriuret Pep 6570 H, Total Protein 6.1, Albumin 2.9 L, Globulin 3.2, Albumin/Globulin Ratio 0.9 L 06/23/16 15:45: pO2 63 H, VBG pH 7.39, VBG pCO2 42.0, VBG HCO3 25.4, VBG Total CO2 26.7, VBG O2 Sat (Calc) 94.2 H, VBG Base Excess 0.3, VBG Potassium 4.3, Sodium 138.0, Chloride 110.0 H, Glucose 100, Lactate 1.5, FiO2 21.0, Venous Blood Potassium 4.3 06/23/16 15:45: WBC 10.9 D, RBC 2.95 L, Hgb 10.1 L, Hct 30.2 L, MCV 102.4, MCH 34.2, MCHC 33.4, RDW 14.3, Plt Count 272, MPV 8.5, Gran % 96.0 H, Lymph % (Auto ) 2.5 L, [place] % (Auto) 1.3, Eos % (Auto) 0.1 L, Baso % (Auto) 0.1, Gran # 10.47 H, Lymph # 0.3 L, [place] # 0.1, Eos # 0.0, Baso # 0.01 - RAD Interpretation Radiology Orders: 06/23/16 15:17 CHEST PORTABLE [RAD] Stat - EKG Interpretation Interpreted by ED Physician: Yes Type: 12 lead EKG - Medication Orders Current Medication Orders: Alprazolam (Xanax) 1 mg PO Q6 PRN; Protocol PRN Reason: Anxiety Sodium Chloride (Sodium Chloride 0.9%) 250 mls @ 250 mls/hr IV .Q1H BELEM Last Admin: 06/23/16 15:54 Dose: 250 mls/hr Ceftriaxone Sodium (Rocephin 1 Gram Ivpb) 1 gm in 100 mls @ 200 mls/hr IVPB STAT STA Stop: 06/23/16 18:08 Oxycodone/Acetaminophen (Percocet 5/325 Mg Tab) 1 tab PO Q6 PRN PRN Reason: Pain, moderate (4-7) Stop: 06/26/16 18:01 Discontinued Medications Azithromycin (Zithromax) 500 mg IVPB STAT STA PRN Reason: Protocol Stop: 06/23/16 17:35 Zolpidem Tartrate (Ambien) 5 mg PO STAT STA PRN Reason: Protocol Stop: 06/23/16 17:39 Zolpidem Tartrate (Ambien) 5 mg PO STAT STA PRN Reason: Protocol Stop: 06/23/16 17:39 - Scribe Statement The provider has reviewed the documentation as recorded by the Yvonne Varela Provider Scribe Attestation: All medical record entries made by the Scribe were at my direction and personally dictated by me. I have reviewed the chart and agree that the record accurately reflects my personal performance of the history, physical exam, medical decision making, and the department course for this patient. I have also personally directed, reviewed, and agree with the discharge instructions and disposition. Disposition/Present on Arrival - Present on Arrival Any Indicators Present on Arrival: No History of DVT/PE: No History of Uncontrolled Diabetes: No Urinary Catheter: No History Surgical Site Infection Following: None - Disposition Have Diagnosis and Disposition been Completed?: Yes Diagnosis: Congestive heart failure (CHF), Chest pain Disposition: HOSPITALIZED Disposition Time: 17:02 Patient Plan: Admission Condition: FAIR Discharge Instructions (ExitCare): Heart Failure (ED), Chest Pain (ED) Referrals: Tripp King MD [Primary Care Provider] - Follow up with primary
[2016-06-23] MEDS: Sodium Chloride 0.9% 250 ML IV SCH ×2 (15:54→17:54)
[2016-06-23 15:59] LABS: ADD MANUAL DIFF? NO
[2016-06-23 16:07] LABS: BASO # 0.01 K/mm3 (0.0-2.0); BASO % 0.1 % (0.0-3.0); EOS % 0.1 % (1.5-5.0); GRAN # 10.47 (1.4-6.5); HEMATOCRIT 30.2 % (36.0-48.0); LYMPH # 0.3 (1.2-3.4); LYMPH % 2.5 % (22.0-35.0); MEAN CELL VOLUME 102.4 fL (80.0-105.0); MEAN CORPUSCULAR HEMOGLOBIN 34.2 pg (25.0-35.0); MEAN CORPUSCULAR HGB CONC 33.4 g/dl (31.0-37.0); MEAN PLATELET VOLUME 8.5 fl (7.0-11.0); MONO # 0.1 (0.1-0.6); MONO % 1.3 % (1.0-6.0); PLATELET COUNT 272 10^3/uL (120.0-450.0); RED CELL DISTRIBUTION WIDTH 14.3 % (11.5-14.5); WHITE BLOOD COUNT 10.9 10^3/ul (4.5-11.0)
[2016-06-23 16:11] LABS: VENOUS BLOOD GAS BASE EXCESS 0.3 mmol/L (0.0-2.0); VENOUS BLOOD PH 7.39 (7.32-7.43)
[2016-06-23 16:57] LABS: ALB/GLOB RATIO 0.9 (1.1-1.8); ALKALINE PHOSPHATASE 190 U/L (38-133); ALT/SGPT 31 U/L (7-56); AST/SGOT 16 U/L (15-39); BILIRUBIN,TOTAL 0.5 mg/dL (0.2-1.3); BLOOD UREA NITROGEN 18 mg/dL (7-21); CALCIUM 8.7 mg/dL (8.4-10.5); CARBON DIOXIDE 24 mmol/L (21-33); CHLORIDE 105 mmol/L (98-107); GFR AFRICAN-AMERICAN > 60; GLUCOSE,RANDOM 97 mg/dL (70-110); MAGNESIUM 1.8 mg/dL (1.7-2.2); PHOSPHOROUS 3.2 mg/dL (2.5-4.5); POTASSIUM 4.1 mmol/L (3.6-5.0); SODIUM 138 mmol/L (132-148); TOTAL PROTEIN 6.1 g/dL (5.8-8.3)
[2016-06-23 17:08] LABS: TROPONIN I 0.03 ng/mL
--- NOTE | 2016-06-23 17:25 | RAD ---
HISTORY: cough, chest pain COMPARISON: Chest x-ray performed 06/01/16 TECHNIQUE: Chest, one view. FINDINGS: Left-sided central venous catheter extends to the cavoatrial junction. LUNGS: Chronic appearing interstitial markings appear chronic. Biapical pleural thickening. Please note that chest x-ray has limited sensitivity for the detection of pulmonary masses. PLEURA: No significant pleural effusion identified. No definite pneumothorax . CARDIOVASCULAR: Heart size appears top normal. OSSEOUS STRUCTURES: Osseous demineralization. Degenerative changes. Deformity of the right mid humerus appears chronic. VISUALIZED UPPER ABDOMEN: Unremarkable. OTHER FINDINGS: None. IMPRESSION: Left-sided central venous catheter extends to the cavoatrial junction. Chronic appearing interstitial markings appear chronic. Biapical pleural thickening. Deformity of the right mid humerus appears chronic.
[2016-06-23] MEDS ORDERED: cefTRIAXone (Rocephin) 1 gm Inj IVPB STA (17:34)
[2016-06-23] MEDS ORDERED: cefTRIAXone 1 gm 1 GM/100 ML BAG IVPB STA (17:39)
[2016-06-23] MEDS ORDERED: Azithromycin 500MG/NS 250ml 500 MG/250 ML BAG IVPB STA (17:43)
[2016-06-23] MEDS: Oxycodone/Acetaminophen 5/325 mg Tab PO PRN (17:53)
--- NOTE | 2016-06-23 19:42 | CARD ---
APPROVED REPORT EKG Measurement Heart [id number] <Conclusion> Normal sinus rhythm Possible Left atrial enlargement Left axis deviation Left bundle branch block Abnormal ECG
--- NOTE | 2016-06-23 23:53 | CP.PCM.PN ---
Subjective - Date & Time of Evaluation Date of Evaluation: 06/23/16 Time of Evaluation: 23:52 - Subjective Subjective: Patient was seen at bed side. She complaints of mucus that she can not get out.States that she has this cough ever since she got intubated about a week ago. Has no other complaints. Denies chest pain, sob. Medical record was reviewed. This 65 year old white woman was admitted with sob, weakness , throat pain, dysphagia, Has PMH of DE, CHF,HTN,COPD, follicular lymphoma, alcoholic cardiomyopathy, anxiety. Objective - Vital Signs/Intake and Output Vital Signs (last 24 hours): Temp Pulse Resp BP Pulse Ox 98 F 65 18 90/64 L 95 06/23/16 19:55 06/23/16 22:00 06/23/16 19:55 06/23/16 19:55 06/23/16 18:19 - Medications Medications: Current Medications Alprazolam (Xanax) 1 mg PO Q6 PRN; Protocol PRN Reason: Anxiety Last Admin: 06/23/16 17:53 Dose: 1 mg Oxycodone/Acetaminophen (Percocet 5/325 Mg Tab) 1 tab PO Q6 PRN PRN Reason: Pain, moderate (4-7) Stop: 06/26/16 18:01 Last Admin: 06/23/16 17:53 Dose: 1 tab Zolpidem Tartrate (Ambien) 5 mg PO HS PRN; Protocol PRN Reason: Insomnia Last Admin: 06/23/16 22:41 Dose: 5 mg - Constitutional Appears: Well, No Acute Distress - Head Exam Head Exam: ATRAUMATIC, NORMAL INSPECTION, NORMOCEPHALIC - Eye Exam Eye Exam: Normal appearance - ENT Exam ENT Exam: Normal External Ear Exam - Neck Exam Neck Exam: Normal Inspection - Respiratory Exam Respiratory Exam: Clear to Ausculation Bilateral, NORMAL BREATHING PATTERN. absent: Chest Wall Tenderness, Rales, Rhonchi, Wheezes, Respiratory Distress, Stridor - Cardiovascular Exam Cardiovascular Exam: REGULAR RHYTHM. absent: JVD - GI/Abdominal Exam GI & Abdominal Exam: absent: Distended - Rectal Exam Rectal Exam: Deferred - Extremities Exam Extremities Exam: Normal Inspection - Back Exam Back Exam: NORMAL INSPECTION - Neurological Exam Neurological Exam: Alert, Oriented x3 - Psychiatric Exam Psychiatric exam: Normal Affect, Normal Mood - Skin Skin Exam: Normal Color Assessment and Plan - Assessment and Plan (Free Text) Assessment: A/P:Cough. Dyspnea. Bronchitis. CAD. CHF. HTN. COPD. Continue present management. Robitussin 100 mg PO Q4H prn.
[2016-06-24] MEDS: guaiFENesin 100 mg/5 ml Syrup UD PO PRN ×2 (00:10→14:26)
[2016-06-24] MEDS: Oxycodone/Acetaminophen 5/325 mg Tab PO PRN ×2 (05:13→14:25)
[2016-06-24 06:48] LABS: ADD MANUAL DIFF? NO
[2016-06-24 07:08] LABS: INR 1.03 (0.93-1.08)
[2016-06-24 07:26] LABS: BLOOD UREA NITROGEN 16 mg/dL (7-21); CALCIUM 8.2 mg/dL (8.4-10.5); CARBON DIOXIDE 23 mmol/L (21-33); CHLORIDE 109 mmol/L (98-107); GFR AFRICAN-AMERICAN > 60; GLUCOSE,RANDOM 73 mg/dL (70-110); POTASSIUM 3.6 mmol/L (3.6-5.0); SODIUM 137 mmol/L (132-148)
[2016-06-24 08:05] LABS: BASO # 0.01 K/mm3 (0.0-2.0); BASO % 0.1 % (0.0-3.0); EOS % 0.6 % (1.5-5.0); GRAN # 6.16 (1.4-6.5); GRAN % 84.7 % (50.0-68.0); LYMPH # 0.5 (1.2-3.4); LYMPH % 7.2 % (22.0-35.0); MEAN CELL VOLUME 101.9 fL (80.0-105.0); MEAN CORPUSCULAR HGB CONC 33.3 g/dl (31.0-37.0); MEAN PLATELET VOLUME 8.8 fl (7.0-11.0); MONO # 0.5 (0.1-0.6); MONO % 7.4 % (1.0-6.0); PLATELET COUNT 268 10^3/uL (120.0-450.0); RED CELL DISTRIBUTION WIDTH 14.4 % (11.5-14.5); RETIC% 1.79 % (0.5-1.5); WHITE BLOOD COUNT 7.3 10^3/ul (4.5-11.0)
[2016-06-24] MEDS: Lidocaine 5% Patch TD SCH (11:44)
[2016-06-24] MEDS: Levalbuterol 0.63 MG/3 ML Inhal Soln UD IH SCH ×4 (11:47→23:40)
[2016-06-24] MEDS: Budesonide 0.5 mg/2 ml Inhal Susp UD IH SCH (20:05)
--- NOTE | 2016-06-24 21:47 | HP ---
CHIEF COMPLAINT: Shortness of breath, weakness. HISTORY OF PRESENT ILLNESS: This is a 65-year-old woman I have known for a few years now with a history of severe congestive heart failure, ejection fraction reported to be about 9 due to dilated alcoholic cardiomyopathy. She continues to drink and smoke tobacco. Was recently hospitalized in an acute care setting at [facility] for dyspnea, congestive heart failure and COPD. She was transferred to a subacute rehab facility and over there for the last few weeks. She was scheduled for discharge to home. Her discharge was delayed pending scheduling for a visiting nurse and family reasons. Today, she was scheduled to leave. The patient and her significant other were concerned about her being able to manage at home and the patient reported symptoms of shortness of breath and chest discomfort and was taken to the Emergency Room. In the ER, her BNP was elevated. The patient overall seemed okay, but was short of breath with a poor ejection fraction and elevated BNP and therefore admitted to a telemetry monitored bed. PAST MEDICAL HISTORY: Is significant for dilated cardiomyopathy with reported ejection fraction, alcohol use, polysubstance use including benzodiazepines and opiates. She underwent a cardiac arrest just last month and was resuscitated with some broken ribs and therefore complaining of chest discomfort. A chest x- ray was unremarkable, however. PHYSICAL EXAMINATION: The patient was awake and alert, but reporting chest pain and exertional dyspnea. Breath sounds were reported to good in the Emergency Room. Extremities were thin without edema. So, she was admitted to a telemetry monitored floor, given her dose of narcotic analgesics of Percocet and Xanax and sent to room 261, bed 1. Tripp King MD cc: [id number] TT: 06/24/2016 21:46:21 fortino HENRIQUEZ
--- NOTE | 2016-06-24 21:52 | PN ---
DATE: 06/24/2016 SUBJECTIVE: The patient was seen this Sunday morning in room 261, bed 1. She is resting in bed, comfortable and no longer dyspneic but was complaining of chest pain. A Lidoderm patch was ordered to help with these symptoms as the patient reports it has helped quite a bit in the past. PHYSICAL EXAMINATION: LUNGS: Show good aeration, right and left. HEART: Regular, not tachycardic. EXTREMITIES: Shows trace to +1 edema of the lower extremities. IMPRESSION: 1. Chest pain, most likely of musculoskeletal origin from recent cardiopulmonary resuscitation, and broken ribs. 2. Congestive heart failure. 3. Dilated alcoholic cardiomyopathy. 4. Arthritis. PLAN: I spoke with the patient at great length. She informed me that since her last admission she has spoken to an attorney lawyer and her boyfriend of 8 years, Nickolas, is her durable power of attorney lawyer and medical decision maker, not either of her 2 sons. I spoke with her about DNR, as said she did not want to go through CPR and those symptoms again; however, when I explained to her that all we need to do is have this conversation and be sure that she understands the decision, she says she is not able to make the call at this time and that I should talk to Nickolas and he will know when her right time has come. So, we will continue maximal efforts including heroic efforts if necessary for this unfortunate 65-year-old woman with dilated cardiomyopathy. Tripp King MD cc: [id number] TT: 06/24/2016 21:52:08 Confirmation # [id number] Dictation # [id number] fortino HENRIQUEZ
[2016-06-25] MEDS: Oxycodone/Acetaminophen 5/325 mg Tab PO PRN ×3 (02:22→17:53)
[2016-06-25 02:42] LABS: URINE BILIRUBIN NEGATIVE (NEGATIVE); URINE BLOOD NEGATIVE (NEGATIVE); URINE GLUCOSE (UA) NEGATIVE (NEGATIVE); URINE KETONE NEGATIVE (NEGATIVE); URINE LEUKOCYTE ESTERASE NEGATIVE Leu/uL (NEGATIVE); URINE PROTEIN NEGATIVE mg/dL (<30 mg/dL); URINE UROBILINOGEN 0.2 E.U./dL (<1 E.U./dL)
[2016-06-25 02:47] LABS: URINE APPEARANCE CLEAR (CLEAR); URINE COLOR YELLOW (YELLOW)
[2016-06-25] MEDS: Levalbuterol 0.63 MG/3 ML Inhal Soln UD IH SCH ×6 (04:00→23:25)
[2016-06-25] MEDS: Budesonide 0.5 mg/2 ml Inhal Susp UD IH SCH ×2 (07:45→19:30)
[2016-06-25] MEDS: Lidocaine 5% Patch TD SCH (10:40)
--- NOTE | 2016-06-25 12:44 | PN ---
DATE: 06/25/2016 PULMONARY PROGRESS NOTE LOCATION: 261, bed 1. SUBJECTIVE: I have completed a consultation on this patient yesterday. The confirmation number was [id number]. It does not appear on record today, 24 hours later. I have discussed this with IT and they will try to obtain this note. The patient was complaining of significant chest discomfort from the site of cardiac arrest and CPR. She was also complaining of shortness of breath. Because of her atrial fibrillation, we had to be very gentle with bronchodilators. There was, on exam, some wheezing and she had been on bronchodilators in the past. It was hopeful that this would alleviate her shortness of breath and other symptoms. PHYSICAL EXAMINATION: GENERAL: This morning, she is feeling stronger. VITAL SIGNS: Stable. LUNGS: Show better aeration and are clear. There are no signs of rales, rhonchi or wheezes. HEART: Has an irregular rhythm. S1, S2 without tachycardia. GI: Soft. Bowel sounds normoactive. : No urinary frequency EXTREMITIES: Reveal no clubbing or cyanosis. There is the presence of very mild edema bilaterally. SKIN: No rashes NEUROLOGIC: No memory loss IMPRESSION: 1. Chest pain, most likely musculoskeletal in origin from cardiopulmonary resuscitation. 2. Shortness of breath. 3. Congestive heart failure. 4. Chronic obstructive pulmonary disease/acute bronchospasm. 5. Dilated alcoholic cardiomyopathy. PLAN: The patient has done well on the inhaled bronchodilator, which I will continue today. The patient will need further local treatment for the chest discomfort. If this fails to resolve, further intervention must be done to rule out cardiac damage. We will continue the same medications as previously and turn over this patient to Dr. Parker, who takes over in the morning. Hopefully, the initial consultation done yesterday will appear on the medical record at that time. Thank you for the opportunity to see this patient. Clifton Castealn MD cc: [id number] TT: 06/25/2016 12:43:54 Confirmation # [id number] Dictation # [id number] en MTDD
[2016-06-26] MEDS: Levalbuterol 0.63 MG/3 ML Inhal Soln UD IH SCH ×6 (03:43→23:34)
--- NOTE | 2016-06-26 08:18 | PN ---
DATE: 06/25/2016 The patient was seen this Sunday early afternoon in room 261, bed 2, with her spouse equivalent (Bradley bonner) at the bedside. She informed me that Nickolas is her new healthcare proxy and power of securities attorney as a lifetime (8 years) live-in boyfriend/spouse equivalent. She is markedly clinically improved, le ss short of breath. Denies having any chest pain, but is wondering what I and the healthcare system is going to do for her in the future as she is finding it harder to be able to care for herself at [facility] with a list of things that she is unable to do for herself. PHYSICAL EXAMINATION: LUNGS: Clear. HEART: Not tachycardic. EXTREMITIES: Thin. IMPRESSION: Congestive heart failure, improving. PLAN: I tell the patient to begin preparation for discharge to home soon. Visiting nurse was expect ing her to be discharged from the rehab facility on Sunday and instead she came to [facility] with chest pain and shortness of breath. Cardiology followup with Dr. Schulte appreciated. Will a public health social worker and discharge planning to be heavily involved Sunday. Tripp King MD cc: [phone] TT: 06/26/2016 08:17:31 Confirmation # [id number] Dictation # [id number] anabell
[2016-06-26] MEDS: Oxycodone/Acetaminophen 5/325 mg Tab PO PRN ×2 (08:28→14:35)
[2016-06-26] MEDS: guaiFENesin 100 mg/5 ml Syrup UD PO PRN (08:28)
--- NOTE | 2016-06-26 08:37 | PN ---
DATE: 06/26/2016 SUBJECTIVE: The patient appears comfortable at rest. She is not short of breath. PHYSICAL EXAMINATION: VITAL SIGNS: Temperature is 99.5, pulse on the monitor is 88, respiratory rate 18/20, blood pressure 95/46. Oxygen saturation on room air is 96%. HEENT: Normocephalic, atraumatic. No JVD. CARDIOVASCULAR: Positive S1, S2. No S3. LUNGS: Clear bilaterally this morning. EXTREMITIES: Mild edema. No cyanosis, no clubbing. Calves are nontender to palpation. GASTROINTESTINAL: Abdomen is soft, nontender, nondistended. Bowel sounds are positive. SKIN: No acute rash. NEUROLOGIC: Limited at the present time. IMPRESSION: 1. Chronic obstructive pulmonary disease. 2. Coronary artery disease. 3. Advanced cardiomyopathy. 4. Chest discomfort -- resolved -- probably musculoskeletal. 5. Cardiac arrhythmias. PLAN: The patient appears comfortable this morning. She is not short of breath at rest. She states she is feeling better this morning -- compared to the past few days. On physical exam, her lungs are clear this morning. In addition, the oxygen saturation on room air is 96%. I will continue with the current nebulizer treatments and inhaled steroids for now. Cardiology evaluation with Dr. Schulte has been ordered. As above, her chest pain is now resolved. It was most likely musculoskeletal in nature. The clinical status of the patient is certainly improved -- compared to the initial presentation (06/2016). However, the overall status/prognosis for this patient is very poor. I will discuss the above with Dr. King. Adam Parker MD cc: [id number] TT: 06/26/2016 08:36:33 Confirmation # [id number] Dictation # [id number] en MTDD
[2016-06-26] MEDS: Lidocaine 5% Patch TD SCH (09:54)
--- NOTE | 2016-06-26 10:52 | CON ---
DATE: 06/26/2016 HISTORY OF PRESENT ILLNESS: The patient is a 65-year-old woman who presents with dyspnea from the [facility]. PAST MEDICAL HISTORY: Complex, but is dominated by a history of end-stage dilated cardiomyopathy fro m refractory alcoholism as well as end-stage COPD from a long history of smoking. She is status post CPR on her last admission, which resulted in chronic musculoskeletal chest pain. SOCIAL HISTORY: She denies smoking now. REVIEW OF SYSTEMS: A 14-point is filled with multiple complaints. However, her dyspnea is markedly improved. PHYSICAL EXAMINATION: VITAL SIGNS: Blood pressure is 95/46, the heart rate is in the 90s. NECK: Negative JVD. LUNGS: No rales noted. HEART: Revealed S1, S2. EXTREMITIES: Without edema. Hemoglobin is 9.0. Glucose is 97. EKG shows bundle branch block. IMPRESSION: 1. Dyspnea. 2. No evidence for active congestive heart failure. 3. Dilated cardiomyopathy. 4. History of alcoholism. 5. Chronic obstructive pulmonary disease. 6. Chest pain is musculoskeletal from cardiopulmonary resuscitation. Given these findings, we will begin physical therapy today. Michael Schulte MD cc: [id number] TT: 06/26/2016 10:51:36 Confirmation # [id number] Dictation # [id number] en
[2016-06-26] MEDS: Budesonide 0.5 mg/2 ml Inhal Susp UD IH SCH ×2 (11:39→19:52)
--- NOTE | 2016-06-26 16:35 | CON ---
DATE: 06/24/2016 PULMONARY CONSULTATION HISTORY OF PRESENT ILLNESS: The patient is a 65-year-old with ITP, COPD, congestive heart failure, hypertension, cardiomyopathy and alcoholic liver disease. She was recently hospitalized and then placed on telemetry where she sustained a cardiopulmonary arrest. She was intubated and placed on mechanical ventilation. She developed pain at the site and continues to be on Percocet and Lidoderm patch in the chest area. The patient was admitted because of complaints of what she denies is shortness of breath, but she is obviously a patient who is failing to thrive and has progressive end-stage diseases. There is still an active code status. I have spoken to Dr. Tripp King about this patient and now we are aware of all the previous history and can contribute to this case. On further questioning, the patient states that she is not taking any inhalation bronchodilator, corticosteroids at home. This is not the best way to treat this, although her other diagnoses are being treated. ALLERGIES: SHE HAS ALLERGIES TO BENADRYL AND ANESTHETICS. FAMILY HISTORY: COPD, liver disease and cancer. SOCIAL HISTORY: Former smoker, former drinker. No travel history. Of importance is the fact that the patient does have thrombocytopenia and a history of follicular lymphoma, having had chemotherapy in the past. Therefore , she is in immunological compromise from this and the alcoholic liver disease and cardiomyopathy. REVIEW OF SYSTEMS: Complete review of systems has been reviewed with the patient. She is not anxious to talk too much and tells me that I can get all the information from the chart. I read the chart carefully and discussed the patient's case with Dr. Tripp King. There are no additional findings noted. All other systems negative. PHYSICAL EXAMINATION: GENERAL: She is resting comfortably in no acute distress. VITAL SIGNS: Temperature is 98.6, pulse 68, respiratory rate 16, blood pressure 110/70, pulse ox 97% on supplemental oxygen. HEAD: Normocephalic, atraumatic. EYES: PERRLA. EOMs full. Conjunctivae pink. Mouth moist. NECK: Supple, no JVD, no lymphadenopathy. No bruit, no mass. HEART: Regular rhythm. Soft systolic ejection murmur at the lower left sternal border. RESPIRATORY: Global decrease in breath sounds, poor air entry. Minimal rales throughout. No rhonchi or rales noted, increased AP diameter. GASTROINTESTINAL: Soft. Bowel sounds normoactive without mass, guarding, rebound or organomegaly. EXTREMITIES: Reveal no clubbing, cyanosis or edema. NEUROLOGIC: Awake and alert. Her memory is terrible, but her findings on exam are within normal limits. SKIN: Warm and dry. LYMPHATICS: Lymphadenopathy is not present. I have reviewed the chest x-ray which shows cardiomegaly. In addition to the cardiomegaly there are chronic interstitial changes in both lungs, apical pleural thickening, hyperinflation is noted. No additional abnormalities can be detected. EKG: Sinus tach, nonspecific ST-T wave changes. LABORATORY STUDIES: White count 7300 down from 10,900, hemoglobin 10.1, hematocrit 30, platelet count 272. Retic count 1.79. Coagulation: INR 1.3. D -dimer is 0.39. Arterial blood gas: pH 7.39, pCO2 42, pO2 63. Additional chemistries show a chloride of 109, calcium 8.2 which is low. BNP is 6570 which is elevated. IMPRESSION: 1. Chest pain secondary to CPR. 2. Cardiomyopathy. 3. Alcoholic liver disease. 4. Status post follicular lymphoma. 5. Anemia. 6. Mild acute bronchospasm. 7. Interstitial changes and biapical pleural thickening on chest x-ray. 8. Congestive heart failure. PLAN: Must use increased diuretics and afterload reducers to get rid of the fluid on examination and on chest x-ray. Her BNP is markedly elevated. In addition, the patient needs bronchodilators and corticosteroids via inhalation mode. We are being careful with the dose as the patient does have some arrhythmias and has cardiac arrest in the past. Continue Robitussin as ordered by the house staff for liquefaction of retained secretions, antibiotics for acute on chronic bronchitis. We will discuss these problems with the primary, Dr. King, and follow closely. Clifton Castelan MD cc: [id number] TT: 06/24/2016 11:28:03 Confirmation # [id number] Dictation # [id number] jn [place]
[2016-06-27] MEDS ORDERED: Oxycodone/Acetaminophen 5/325 mg Tab PO STA (02:36)
[2016-06-27] MEDS: Levalbuterol 0.63 MG/3 ML Inhal Soln UD IH SCH ×5 (03:47→20:20)
--- NOTE | 2016-06-27 08:11 | PN ---
DATE: 06/27/2016 SUBJECTIVE: The patient appears very comfortable at rest. She is not short of breath. PHYSICAL EXAMINATION: VITAL SIGNS: Temperature is 99.2, pulse 86, respirations 18, blood pressure 88/ 41. Oxygen saturation on room air is 96%. HEENT: Normocephalic, atraumatic. No JVD. CARDIOVASCULAR: Positive S1, S2. No S3. LUNGS: Clear bilaterally. EXTREMITIES: Mild edema. No cyanosis, no clubbing. Calves are nontender to palpation. GASTROINTESTINAL: Abdomen is soft, nontender, nondistended. Bowel sounds are positive. SKIN: No acute rash. NEUROLOGIC: Limited at the present time. IMPRESSION: 1. Chronic obstructive pulmonary disease. 2. Coronary artery disease. 3. Advanced cardiomyopathy. 4. Chest discomfort - resolved -- probably musculoskeletal. 5. Cardiac arrhythmias. PLAN: The patient appears very comfortable this morning. She is not short of breath at rest. She states she is feeling better overall. On physical exam, her lungs remain clear. Oxygen saturation on room air is 96%. I will continue with the current nebulizer treatments and inhaled steroids for now. Cardiology evaluation by Dr. Schulte is noted. Her chest pain has resolved. I did review the notes by Dr. King. The patient is for discharge in the near future. At this point in time, no additional pulmonary intervention is needed or warranted. I will thus follow up on this patient again as requested. Please call me for any additional problems or questions with this patient. Thank you for allowing me to participate in the care of this patient. Adam Parker MD cc: [id number] TT: 06/27/2016 08:10:53 Confirmation # [id number] Dictation # [id number] anabell HENRIQUEZ
--- NOTE | 2016-06-27 09:03 | PN ---
DATE: 06/26/2016 The patient is a 65-year-old female with a history of severe congestive heart failure. Ejection frac tion was 14.5 on an echocardiogram 1 month ago. She also has a history of COPD, was hospitalized for COPD and congestive heart failure 1 month ago. She was discharged to subacute rehab facility for am bulation. She had completed her course there and was discharged to home; however, the patient felt s he was still unable to complete her activities of daily living and therefore presented to the [facility] Emergency Room, was evaluated and admitted. She had been complaining of shortness of breath and chest discomfort at that time. During her last hospitalization, the patient did suffer a n episode of ventricular tachycardia and rapid response was called. The patient received chest compr essions. She was revived. However, complained of anterior chest discomfort since that time. When s zain, the patient's significant other and power of senior attorney, were sitting at bedside. The patient was complaining that she was unable to do things. She was complaining she did not receive enough physic al therapy at the subacute rehab center and the physical therapy that she was too accelerated and too rough. PHYSICAL EXAMINATION: LUNGS: Clear. HEART: Regular. ABDOMEN: Soft and nontender. I explained to the patient that she could continue physical therapy at home with home PT. However, s he preferred to receive more physical therapy here in [facility] before going home. We w ill look into the possibility of a transfer to transitional care unit and continue to follow the berenice ent closely. Baljeet King MD cc: [phone] TT: 06/27/2016 09:03:17 Confirmation # [id number] Dictation # [id number] mn
[2016-06-27] MEDS: Lidocaine 5% Patch TD SCH (09:42)
--- NOTE | 2016-06-27 10:11 | PQF CHF ---
This form is a permanent part of the medical record Dr. King, Chart reflects that patient was admitted with SOB and chest pain. BNP elevated on admission, CXR with chronic changes. Your documentation includes CHF as a diagnosis. Please specify type and severity of CHF present. Clarification of your documentation is requested to better reflect the severity of illness and intensity of treatment of your patient. Indicators present [x] Diagnosis of CHF and/or history of CHF [x] BNP > 200 [] Imaging Finding of Pulmonary Edema /Pleural Effusions [] Fluid/Volume Overload [] Pitting edema [x] Ejection Fraction < 40% (Indicative of Systolic Heart Failure) [] Ejection Fraction > 40% (Indicative of Diastolic Heart Failure) [x] Dyspnea / Orthopenea / Paroxysmal Nocturnal Dyspnea [] Other: Location in the medical record that reflects the above clinical findings: [] Treatment Provided: [] PHYSICIAN'S RESPONSE Based on your medical judgment of the clinical indicators outlined above, are you treating this patient for a known or suspected: [] Acute CHF [] Systolic [] Diastolic [] Combined [] Chronic CHF [] Systolic [] Diastolic [] Combined [X] Acute on Chronic CHF [X]Systolic [] Diastolic [] Combined [] CHF due hypertension [] Acute systolic []Chronic systolic [] Acute/ chronic systolic [] Other, please indicate: [] [] If Unable to Determine, please check the box, sign and date. Present On Admission (POA) Indicator: [X] Present at the time of admission [] Not present at the time of admission [] Clinically Undetermined In responding to this query, please exercise your independent professional judgment. The fact that a question is asked does not imply that any particular answer is desired or expected. Thank you for your clarification on this documentation. If you have any questions please call:[ ] * Thank you, [ ]Lurdes [facility] #[id number] rubber tubing backer [place]
--- NOTE | 2016-06-27 10:56 | PN ---
DATE: 06/27/2016 The patient is awake, alert, without shortness of breath, complaining of many things. PHYSICAL EXAMINATION: VITAL SIGNS: Blood pressure is 90, heart rate is in the 80s. NECK: Negative JVD. LUNGS: Without rales. HEART: Reveals S1, S2. EXTREMITIES: Without edema. LABORATORIES: Not drawn today. IMPRESSION: 1. End-stage dilated cardiomyopathy secondary to chronic alcoholism. 2. Chronic obstructive pulmonary disease. 3. Anemia. 4. Diffuse weakness. PLAN: Given these findings, the patient remains hemodynamically stable. She is for physical therapy . We will discontinue telemetry today. Michael Schulte MD cc: [id number] TT: 06/27/2016 10:55:52 Confirmation # [id number] Dictation # [id number] tn
[2016-06-27] MEDS: Budesonide 0.5 mg/2 ml Inhal Susp UD IH SCH ×2 (11:01→20:20)
[2016-06-27] MEDS: Oxycodone/Acetaminophen 5/325 mg Tab PO PRN ×2 (12:04→19:36)
[2016-06-27] MEDS: Sodium Chloride 0.9% 250 ML IV SCH ×2 (12:05→14:57)
[2016-06-27 12:12] LABS: ADD MANUAL DIFF? NO
[2016-06-27 12:15] LABS: BASO # 0.01 K/mm3 (0.0-2.0); BASO % 0.1 % (0.0-3.0); EOS % 0.4 % (1.5-5.0); GRAN # 6.31 (1.4-6.5); GRAN % 88.4 % (50.0-68.0); HEMATOCRIT 27.2 % (36.0-48.0); LYMPH # 0.5 (1.2-3.4); LYMPH % 6.3 % (22.0-35.0); MEAN CORPUSCULAR HEMOGLOBIN 34.4 pg (25.0-35.0); MEAN CORPUSCULAR HGB CONC 32.7 g/dl (31.0-37.0); MEAN PLATELET VOLUME 8.4 fl (7.0-11.0); MONO # 0.3 (0.1-0.6); MONO % 4.8 % (1.0-6.0); PLATELET COUNT 199 10^3/uL (120.0-450.0); RED CELL DISTRIBUTION WIDTH 14.8 % (11.5-14.5); WHITE BLOOD COUNT 7.1 10^3/ul (4.5-11.0)
[2016-06-27 12:23] LABS: ALB/GLOB RATIO 0.9 (1.1-1.8); ALKALINE PHOSPHATASE 150 U/L (38-133); ALT/SGPT 32 U/L (7-56); AST/SGOT 12 U/L (15-39); BILIRUBIN,TOTAL 0.4 mg/dL (0.2-1.3); BLOOD UREA NITROGEN 10 mg/dL (7-21); CALCIUM 8.3 mg/dL (8.4-10.5); CARBON DIOXIDE 26 mmol/L (21-33); CHLORIDE 102 mmol/L (95-110); GFR AFRICAN-AMERICAN > 60; GLUCOSE,RANDOM 82 mg/dL (70-110); MAGNESIUM 1.6 mg/dL (1.7-2.2); POTASSIUM 3.7 mmol/L (3.6-5.0); SODIUM 135 mmol/L (132-148); TOTAL PROTEIN 5.7 g/dL (5.8-8.3)
[2016-06-27] MEDS ORDERED: Magnesium Sulfate 2 GM in Sodium Chloride 0.9% 100 ML IVPB ONE (13:07)
[2016-06-27] MEDS: Magnesium Oxide 400 mg Tab UD PO SCH (14:57)
[2016-06-27 23:55] VITALS: RESP 18
[2016-06-28] MEDS: Levalbuterol 0.63 MG/3 ML Inhal Soln UD IH SCH ×4 (00:50→11:11)
[2016-06-28] MEDS: Oxycodone/Acetaminophen 5/325 mg Tab PO PRN ×2 (05:48→15:11)
[2016-06-28] MEDS: guaiFENesin 100 mg/5 ml Syrup UD PO PRN (05:54)
[2016-06-28] MEDS: Budesonide 0.5 mg/2 ml Inhal Susp UD IH SCH (07:52)
[2016-06-28] MEDS: Magnesium Oxide 400 mg Tab UD PO SCH (09:11)
[2016-06-28] MEDS: Lidocaine 5% Patch TD SCH (09:11)
[2016-06-28] MEDS ORDERED: ALBUTEROL IH PRN (10:48)
[2016-06-28] MEDS ORDERED: ALPRAZOLAM 1 MG PO PRN (10:48)
--- NOTE | 2016-06-28 11:44 | DS ---
The patient is a 65-year-old female who was admitted to the [facility] 5 days a go after she was discharged from a subacute rehab facility. She was hospitalized at [facility] approximately 1 month ago. At that time she was hospitalized for COPD and congestive heart fa ilure. At that time she suffered a cardiac arrest with ventricular tachycardia. A rapid response wa s called. She responded to chest compressions and intravenous medications and did well. An echocard iogram about 1 month ago showed a 14.5% ejection fraction. She is known to have a history of severe congestive heart failure as well as COPD and alcoholic bone marrow suppression. During her hospital stay here, she was treated with intravenous fluids. Her electrolytes, including calcium and magnesium, were supplemented. Now, the patient is ready to be discharged to home, althou gh she is still resistant - she feels she is not ready to go home and will not be able to perform her ADLs. However, the patient was encouraged to try as hard as she could, and she is discharged to [facility] today. Prescriptions for Percocet 5 mg 4 times a day, Xanax 1 mg 4 times a day, Ambien 5 mg at bed time and Lidoderm patches to the anterior chest once a day 12 hours on and 12 hours off were given to her on discharge. She will be followed up as an outpatient postdischarge. FINAL DIAGNOSES: Chest wall pain syndrome, history of alcoholism, chronic obstructive pulmonary dise ase, thrombocytopenia, history anemia, abnormal liver enzymes. Baljeet King MD cc: [phone] TT: 06/28/2016 11:43:19 mn
[2016-06-28 17:09] VITALS: BP 93/50; PULSE 67; TEMP 98.1; O2SAT 92
== END 2016-06-28 18:48 | disposition home health service (06) | DRG 292 ==
LOC: ED 14:56 → ERH 17:29 → 2RNO 18:59 → 5RSO 06-27 21:13
PROVIDERS: ADMIT Internal Medicine; ATTEND Internal Medicine
DX: I11.0 Hypertensive heart disease with heart failure (principal); I50.23 Acute on chronic systolic (congestive) heart failure; D69.3 Immune thrombocytopenic purpura; I42.0 Dilated cardiomyopathy; R13.10 Dysphagia, unspecified; Z86.74 Personal history of sudden cardiac arrest; J44.9 Chronic obstructive pulmonary disease, unspecified; R62.7 Adult failure to thrive; K70.9 Alcoholic liver disease, unspecified; F10.20 Alcohol dependence, uncomplicated; I42.6 Alcoholic cardiomyopathy; F41.9 Anxiety disorder, unspecified; I25.10 Atherosclerotic heart disease of native coronary artery without angina pectoris; M19.90 Unspecified osteoarthritis, unspecified site; J98.01 Acute bronchospasm; I48.91 Unspecified atrial fibrillation; D64.9 Anemia, unspecified; R07.89 Other chest pain; Z87.891 Personal history of nicotine dependence; Z85.72 Personal history of non-Hodgkin lymphomas

== ENCOUNTER 2016-07-31 12:09 | Emergency (ER) | payer MEDICARE, OTHER ==
[2016-07-31 12:09] VITALS: PULSE 150
[2016-07-31 12:18] VITALS: BMI 16.1
[2016-07-31] MEDS ORDERED: Amoxicillin-Clav 875-125 mg Tab PO STA (13:15)
[2016-07-31] MEDS ORDERED: TDAP Vaccine 0.5 mL Syr IM ONE (13:16)
--- NOTE | 2016-07-31 15:15 | CT ---
PROCEDURE: CT HEAD WITHOUT CONTRAST. HISTORY: KNAPP x2 weeks COMPARISON: None available. TECHNIQUE: Axial computed tomography images were obtained through the head/brain without intravenous contrast. Radiation dose: Total exam DLP = 688 mGy-cm. This CT exam was performed using one or more of the following dose reduction techniques: Automated exposure control, adjustment of the mA and/or kV according to patient size, and/or use of iterative reconstruction technique. FINDINGS: HEMORRHAGE: No intracranial hemorrhage. BRAIN: No mass effect or edema. No atrophy or chronic microvascular ischemic changes. VENTRICLES: Unremarkable. No hydrocephalus. CALVARIUM: Unremarkable. PARANASAL SINUSES: Unremarkable as visualized. No significant inflammatory changes. MASTOID AIR CELLS: Unremarkable as visualized. No inflammatory changes. OTHER FINDINGS: None. IMPRESSION: No acute finding
--- NOTE | 2016-07-31 15:21 | CT ---
PROCEDURE: CT MAXILLOFACIAL BONES WITHOUT CONTRAST HISTORY: fall COMPARISON: None TECHNIQUE: Contiguous axial CT images of the maxillofacial bones were obtained. Coronal and sagittal reformats were generated. Radiation dose: Total exam DLP = 652 mGy-cm. This CT exam was performed using one or more of the following dose reduction techniques: Automated exposure control, adjustment of the mA and/or kV according to patient size, and/or use of iterative reconstruction technique. FINDINGS: NASAL BONES: Minimally displaced fracture of the right nasal bone, age uncertain. ORBITS: Unremarkable. PARANASAL SINUSES/ MASTOIDS: Clear. MAXILLA: Unremarkable. MANDIBLE/ TEMPOROMANDIBULAR JOINTS: Unremarkable. SKULL BASE: Unremarkable. TEMPORAL BONES: Middle ears and mastoid grossly unremarkable. OTHER FINDINGS: There is nasal septal deviation to the right. IMPRESSION: Minimally displaced right nasal bone fracture, age uncertain. No other facial bone fractures
--- NOTE | 2016-07-31 15:23 | CT ---
PROCEDURE: CT Cervical Spine without contrast HISTORY: Fall COMPARISON: None available. TECHNIQUE: Axial computed tomography images were obtained of the cervical spine without the use of intravenous contrast. Coronal and sagittal reformatted images were created and reviewed. Radiation dose: Total exam DLP = 202 mGy-cm. This CT exam was performed using one or more of the following dose reduction techniques: Automated exposure control, adjustment of the mA and/or kV according to patient size, and/or use of iterative reconstruction technique. FINDINGS: VERTEBRAE: No fracture. Normal alignment. No destructive bony lesion. DISCS/SPINAL CANAL/NEURAL FORAMINA: No significant central canal or neural foraminal stenosis. Discs heights are grossly preserved. PARASPINAL SOFT TISSUES: Unremarkable. OTHER FINDINGS: None. IMPRESSION: Unremarkable CT of the cervical spine.
--- NOTE | 2016-07-31 16:36 | ED PDOC ---
Arrival/HPI - General Chief Complaint: Trauma Time Seen by Provider: 07/31/16 13:14 - History of Present Illness Narrative History of Present Illness (Text): 07/31/16 16:30 65-year-old female presents the emergency department after a mechanical fall. Patient states that she hit the bridge of her nose. States that she has localized pain in the region. Denies any loss of consciousness, denies any chest pain, shortness of breath, palpitations before the incident. Patient states that she has a right humeral fracture which is chronic which is not the reason why she came to the ER. Denies any other trauma, injury, complaints. Past Medical History - Provider Review Nursing Documentation Reviewed: Yes - Past History Past History: Non-Contributing - Infectious Disease Hx of Infectious Diseases: None - Tetanus Immunization Tetanus Immunization: Up to Date, Unknown - Cardiac Hx Cardiac Disorders: Yes (mi) Hx Congestive Heart Failure: Yes Hx Hypertension: Yes - Pulmonary Hx Respiratory Disorders: Yes Hx Chronic Obstructive Pulmonary Disease (COPD): Yes - Neurological Hx Neurological Disorder: Yes (syncope ams) Hx Dizziness: Yes - HEENT Hx HEENT Disorder: Yes (eyeglasses) Other/Comment: developes ulcers left eye on eye drops - Renal Hx Renal Disorder: No - Endocrine/Metabolic Hx Endocrine Disorders: Yes Hx Diabetes Mellitus Type 1: Yes - Hematological/Oncological Hx Blood Disorders: Yes (thrombocytopenia) Hx Anemia: Yes (blood transfusion) Hx Cancer: Yes (follicular lymphoma 2007) Hx Chemotherapy: Yes Other/Comment: gastrointestinal ca 2007 - Integumentary Hx Dermatological Disorder: No (LEFT UPPER ARM IN AND OUT OF PORT.) Other/Comment: coccyx stage 2 1cm x 1cm ulcer pt refusing to turn over at present time to assess, assesment as per ed - Musculoskeletal/Rheumatological Hx Musculoskeletal Disorders: Yes Hx Arthritis: Yes - Gastrointestinal Hx Gastrointestinal Disorders: Yes (weight loss appetite changes) Hx Diverticulitis: Yes Hx Gastroesophageal Reflux: Yes Hx Liver Failure: Yes Other/Comment: colitis, gastrointestinal ca 2007, gastroenteritis, c dif, crohns - Genitourinary/Gynecological Hx Genitourinary Disorders: Yes Hx Incontinence: Yes - Psychiatric Hx Psychophysiologic Disorder: Yes Hx Anxiety: Yes Hx Bipolar Disorder: Yes Hx Depression: Yes Hx Emotional Abuse: No Hx Physical Abuse: No Hx Substance Use: No Other/Comment: alcohol abuse previous suicide attempt - Past Surgical History Past Surgical History: Non-Contributing - Surgical History Hx Cardiac Catheterization: Yes Hx Coronary Stent: Yes Other/Comment: pac joe in and out, c section left humerus sx, r arm deformity/ weakness - Anesthesia Hx Anesthesia Reactions: Yes (SEE ALLERGIES) Hx Malignant Hyperthermia: No - Suicidal Assessment Feels Threatened In Home Enviroment: No Family/Social History Family/Social History: Unknown Family HX Smoking Status: Former Smoker Hx Alcohol Use: No (quit 1 month ago) Amount per day: 3 Hx Substance Use: No Hx Substance Use Treatment: No Allergies/Home Meds Allergies/Adverse Reactions: Allergies diphenhydramine HCl [From Benadryl] Allergy (Verified 07/31/16 12:19) SHORTNESS OF BREATH IV AND BLOOD PRESSURE LOW anesthesia Allergy (Intermediate, Uncoded 07/31/16 12:19) RASH anesthetic agents Allergy (Mild, Uncoded 07/31/16 12:19) ANAPHYLAXIS Home Medications: Home Meds Medication Instructions Recorded Confirmed Albuterol HFA [Ventolin HFA 90 2 puff IH QID PRN 06/23/16 06/23/16 mcg/actuation (8 g)] Dexamethasone/Tobramycin [Tobradex 1 drop LEFTEYE QID 06/23/16 06/23/16 0.1%-0.3% 2.5 Ml] chlordiazePOXIDE [Chlordiazepoxide 25 mg PO BID PRN 06/23/16 06/23/16 HCl] Physical Exam - Physical Exam Narrative Physical Exam (Text): - Review of Systems Constitutional: Normal. absent: Fatigue, Weight Change, Fevers Eyes: Normal ENT: Nasal injury. denies sore throat, denies tristhmus Respiratory: Normal. absent: SOB, Cough, Sputum Cardiovascular: absent: Chest Pain, Palpitations, Syncope Gastrointestinal: Normal. absent: Abdominal Pain, Diarrhea, Nausea, Vomiting Genitourinary: Normal. absent: Dysuria, Frequency, Hematuria, vaginal bleeding Musculoskeletal: Normal. absent: Arthralgias, Back Pain, Neck Pain Skin: no rashes, no erythema Neurological: absent: Focal Weakness Endocrine: Normal Hemo/Lymphatic: Normal Psychiatric: No suicidal or homicidal ideations Physical exam Patient appears age appropriate in no distress, speaking full sentences without difficulty Head atraumatic. No swollen nasal bridge with superficial non-bleeding well approximated skin tear and tenderness, no septal hematoma, no epistaxis. No facial or jaw pain/swelling. No neck midline tenderness, thoracic and lumbar spine with no midline tenderness. Pt moving L. upper and b/l lower extremities without difficulty, 5/5 strength, with full active and passive ROM. R. humerus with a fracture and no tenderness to palpation. Hand strength present, distal neurovasc. fully intact. No bruising noted. Extremities distal neurovasc fully intact. Abd soft/nt/nd, no hematomas, no peritoneal signs. Neg. pelvic rock. - Systems Exam Head: Present: Atraumatic, Normocephalic Pupils: Present: PERRL Extroacular Muscles: Present: EOMI Conjunctiva: Present: Normal Mouth: Present: Moist Mucous Membranes Neck: Present: Normal Range of Motion. No: MIDLINE TENDERNESS, Paraspinal Tenderness Respiratory/Chest: Present: Clear to Auscultation, Good Air Exchange. No: Respiratory Distress, Accessory Muscle Use, Tachypneic Cardiovascular: Present: Regular Rate and Rhythm, Normal S1, S2, Peripheal Pulses Present. No: Murmurs Abdomen: Present: Normal Bowel Sounds. No: Tenderness, Distention, Peritoneal Signs, Rebound, Guarding Back: Present: Normal Inspection. No: Midline Tenderness, Paraspinal Tenderness Upper Extremity: Present: Normal Inspection. No: Cyanosis, Edema Lower Extremity: Present: Normal Inspection. No: Edema Neurological: Present: GCS=15, Speech Normal, cranial nerves II through XII fully intact with no cerebellar abnormality, neurosensory fully intact. No focal neurological deficits. Skin: Present: Warm, Dry, Normal Color. No: Rashes Lymphatic: Present: OX3, NI, NC Psychiatric: Present: Alert, Oriented x 3, Normal Insight, Normal Concentration 07/31/16 16:43 Vital Signs Reviewed: Yes Vital Signs Temp Pulse Resp BP Pulse Ox 07/31/16 12:31 98.5 F 73 16 98/64 L 95 Temperature: Afebrile Blood Pressure: Hypotensive Pulse: Regular Respiratory Rate: Normal Appearance: Positive for: Well-Appearing Pain Distress: None Mental Status: Positive for: Alert and Oriented X 3 Medical Decision Making ED Course and Treatment: 07/31/16 16:36 c-spine and CT head neg. for acute findings per radiologist max/face CT shows minimally displaced right nasal bone fracture, age uncertain. No other facial bone fractures. pt received abx, boostix. instructed to f/u with ENT specialist and her PMD ambulates in the ER states she feels comfortable being dc'd home with outpatient f/u Pt states she understands to return to the ER right away for new or worsening symptoms or for inability to f/u with PMD or specialist as instructed. Patient states that she fully agrees with and understands discharge instructions. States that she agrees with the plan and disposition. Verbalized and repeated discharge instructions and plan. I have given the patient opportunity to ask any additional questions. - RAD Interpretation Radiology Orders: 07/31/16 13:15 CERVICAL SPINE W/O CONTRAST [CT] Stat HEAD W/O CONTRAST [CT] Stat MAXILLOFACIAL W/O CONTRAST [CT] Stat - Medication Orders Current Medication Orders: Discontinued Medications Acetaminophen (Tylenol 325mg Tab) 975 mg PO STAT STA Stop: 07/31/16 13:15 Last Admin: 07/31/16 14:16 Dose: 975 mg Amoxicillin/Clavulanate Potassium (Augmentin 875 Mg-125 Mg Tab) 1 tab PO STAT STA PRN Reason: Protocol Stop: 07/31/16 13:16 Last Admin: 07/31/16 14:16 Dose: 1 tab Tetanus/Reduced Diphtheria/Acell Pertussis (Boostrix Vaccine Inj) 0.5 ml IM .ONCE ONE Stop: 07/31/16 13:17 Last Admin: 07/31/16 14:17 Dose: 0.5 ml Disposition/Present on Arrival - Present on Arrival Any Indicators Present on Arrival: No History of DVT/PE: No History of Uncontrolled Diabetes: No Urinary Catheter: No History of Decub. Ulcer: No History Surgical Site Infection Following: None - Disposition Have Diagnosis and Disposition been Completed?: Yes Diagnosis: Nasal fracture Disposition: HOME/ ROUTINE Disposition Time: 16:39 Patient Plan: Discharge Patient Problems: Current Active Problems Problem Status Onset Nasal fracture Acute Condition: GOOD Discharge Instructions (ExitCare): Nasal Fracture (ED), Fall Prevention for Older Adults (ED) Additional Instructions: PLEASE RETURN TO THE EMERGENCY DEPARTMENT FOR NEW OR WORSENING SYMPTOMS. RETURN RIGHT AWAY IF YOU CANNOT FOLLOW UP WITH YOUR PRIMARY CARE DOCTOR, CLINIC, OR SPECIALIST IN 1-2 DAYS. Prescriptions: Acetaminophen [Tylenol Extra Strength] 500 mg PO Q6 PRN #15 tablet PRN Reason: Pain, Moderate (4-7) Amoxicillin/Clavulanate [Augmentin 875 MG-125 MG] 1 tab PO BID #14 tab Referrals: Tripp King MD [Primary Care Provider] - Follow up with primary Nickolas Carballo DO [Doctor Osteopathy] - Follow up with primary
[2016-07-31 17:04] VITALS: BP 103/51; PULSE 74; RESP 17; TEMP 97.9; O2SAT 98
== END 2016-07-31 17:09 | disposition home or self-care (01) ==
LOC: ED 12:09
DX: S02.2XXA Fracture of nasal bones, initial encounter for closed fracture (principal); W19.XXXA Unspecified fall, initial encounter; Z23 Encounter for immunization

== ENCOUNTER 2016-08-13 16:05 | Emergency (ER) | payer MEDICARE, OTHER ==
[2016-08-13 16:06] VITALS: PULSE 150
[2016-08-13 16:12] VITALS: BMI 17.2
[2016-08-13 16:37] VITALS: BP 100/69; PULSE 76; TEMP 97.9
--- NOTE | 2016-08-13 16:37 | ED PDOC ---
Arrival/HPI - General Chief Complaint: GI Problem Time Seen by Provider: 08/13/16 16:08 - History of Present Illness Narrative History of Present Illness (Text): 08/13/16 16:35 65 yo female, hx of chf, copd, presents with nausea. pt reports she has had nausea vomiting and abdominal pain for last week. denies fevers, diarrhea, or urinary changes. Past Medical History - Provider Review Nursing Documentation Reviewed: Yes - Past History Past History: Non-Contributing - Infectious Disease Hx of Infectious Diseases: None - Tetanus Immunization Tetanus Immunization: Up to Date, Unknown - Cardiac Hx Cardiac Disorders: Yes (mi) Hx Congestive Heart Failure: Yes Hx Hypertension: Yes - Pulmonary Hx Respiratory Disorders: Yes Hx Chronic Obstructive Pulmonary Disease (COPD): Yes - Neurological Hx Neurological Disorder: Yes (syncope ams) Hx Dizziness: Yes - HEENT Hx HEENT Disorder: Yes (eyeglasses) Other/Comment: developes ulcers left eye on eye drops - Renal Hx Renal Disorder: No - Endocrine/Metabolic Hx Endocrine Disorders: Yes Hx Diabetes Mellitus Type 1: Yes - Hematological/Oncological Hx Blood Disorders: Yes (thrombocytopenia) Hx Anemia: Yes (blood transfusion) Hx Cancer: Yes (follicular lymphoma 2007) Hx Chemotherapy: Yes Other/Comment: gastrointestinal ca 2007 - Integumentary Hx Dermatological Disorder: No (LEFT UPPER ARM IN AND OUT OF PORT.) Other/Comment: coccyx stage 2 1cm x 1cm ulcer pt refusing to turn over at present time to assess, assesment as per ed - Musculoskeletal/Rheumatological Hx Musculoskeletal Disorders: Yes Hx Arthritis: Yes - Gastrointestinal Hx Gastrointestinal Disorders: Yes (weight loss appetite changes) Hx Diverticulitis: Yes Hx Gastroesophageal Reflux: Yes Hx Liver Failure: Yes Other/Comment: colitis, gastrointestinal ca 2007, gastroenteritis, c dif, crohns - Genitourinary/Gynecological Hx Genitourinary Disorders: Yes Hx Incontinence: Yes - Psychiatric Hx Psychophysiologic Disorder: Yes Hx Anxiety: Yes Hx Bipolar Disorder: Yes Hx Depression: Yes Hx Emotional Abuse: No Hx Physical Abuse: No Hx Substance Use: No Other/Comment: alcohol abuse previous suicide attempt - Past Surgical History Past Surgical History: Non-Contributing - Surgical History Hx Cardiac Catheterization: Yes Hx Coronary Stent: Yes Other/Comment: pac joe in and out, c section left humerus sx, r arm deformity/ weakness - Anesthesia Hx Anesthesia Reactions: Yes (SEE ALLERGIES) Hx Malignant Hyperthermia: No - Suicidal Assessment Feels Threatened In Home Enviroment: No Family/Social History Family/Social History: Unknown Family HX Smoking Status: Former Smoker Hx Alcohol Use: No (quit 1 month ago) Amount per day: 3 Hx Substance Use: No Hx Substance Use Treatment: No Allergies/Home Meds Allergies/Adverse Reactions: Allergies diphenhydramine HCl [From Benadryl] Allergy (Verified 08/13/16 16:08) SHORTNESS OF BREATH IV AND BLOOD PRESSURE LOW anesthesia Allergy (Intermediate, Uncoded 08/13/16 16:08) RASH anesthetic agents Allergy (Mild, Uncoded 08/13/16 16:08) ANAPHYLAXIS Home Medications: Home Meds Medication Instructions Recorded Confirmed Albuterol HFA [Ventolin HFA 90 2 puff IH QID PRN 06/23/16 06/23/16 mcg/actuation (8 g)] Dexamethasone/Tobramycin [Tobradex 1 drop LEFTEYE QID 06/23/16 06/23/16 0.1%-0.3% 2.5 Ml] chlordiazePOXIDE [Chlordiazepoxide 25 mg PO BID PRN 06/23/16 06/23/16 HCl] Review of Systems - Review of Systems Constitutional: Normal Eyes: Normal ENT: Normal Respiratory: Normal Cardiovascular: Normal Gastrointestinal: Abdominal Pain, Nausea, Vomiting Genitourinary Female: Normal Musculoskeletal: Normal Skin: Normal Neurological: Normal Endocrine: Normal Hemo/Lymphatic: Normal Psychiatric: Normal Physical Exam Vital Signs Temp Pulse Resp BP Pulse Ox 08/13/16 16:37 97.9 F 76 16 100/69 100 Temperature: Afebrile Blood Pressure: Normal Pulse: Regular Respiratory Rate: Normal Appearance: Positive for: Non-Toxic, Comfortable, Cachectic Pain Distress: None Mental Status: Positive for: Alert and Oriented X 3 - Systems Exam Head: Present: Atraumatic, Normocephalic Pupils: Present: PERRL Extroacular Muscles: Present: EOMI Conjunctiva: Present: Normal Mouth: Present: Moist Mucous Membranes Neck: Present: Normal Range of Motion Respiratory/Chest: Present: Clear to Auscultation, Good Air Exchange. No: Respiratory Distress, Accessory Muscle Use Cardiovascular: Present: Regular Rate and Rhythm, Normal S1, S2. No: Murmurs Abdomen: Present: Tenderness (epigastric and suprapubic), Normal Bowel Sounds. No: Distention, Peritoneal Signs, Rebound, Guarding Back: Present: Normal Inspection Upper Extremity: Present: Normal Inspection. No: Cyanosis, Edema Lower Extremity: Present: Normal Inspection. No: Edema Neurological: Present: GCS=15, CN II-XII Intact, Speech Normal Skin: Present: Warm, Dry, Normal Color. No: Rashes Psychiatric: Present: Alert, Oriented x 3, Normal Insight, Normal Concentration Medical Decision Making ED Course and Treatment: 08/13/16 16:36 consider gastritis uti colitis, atypical cardiac, metabolic. - labs imaging pendign 08/13/16 16:47 ekg sinus 72 old lbbb 08/13/16 18:49 Leaving Against Medical Advice (AMA): The patient is choosing to leave against medical advice. I have personally explained to the patient that choosing to do so may result in permanent bodily harm or . I have discussed at great length that without further evaluation and monitoring there may be unforeseen circumstances and/or deterioration causing permanent bodily harm or as a result of their choice. The patient is alert, oriented, and shows the mental capacity to make clear decisions regarding the patients health care at this time. The patient continues to wish to leave against medical advice. The patient has been advised that they should return to the emergency room immediately if they change their mind at any time, or if their condition begins to change or worsen in any way. 08/13/16 18:58 pt with known h/o of diverticulitis, sates feels better. pt advised benefit of ct. pt refuses. signs ama - Lab Interpretations Lab Results: 08/13/16 17:15 08/13/16 17:15 Lab Results 08/13/16 17:15: Sodium 141, Potassium 3.5 L, Chloride 111 H, Carbon Dioxide 21, Anion Gap 13, BUN 8, Creatinine 0.7, Est GFR ( Amer) > 60, Est GFR (Non- Af Amer) > 60, Random Glucose 76, Calcium 8.2 L, Total Bilirubin 0.5, AST 26, ALT 15, Alkaline Phosphatase 165 H, Lactate Dehydrogenase 435, Total Creatine Kinase 20 L, Troponin I < 0.01 D, Total Protein 5.8, Albumin 2.8 L, Globulin 3.0, Albumin/Globulin Ratio 0.9 L, Amylase 52, Lipase 37 08/13/16 17:15: PT 12.5 H, INR 1.16 H, APTT 27.0 08/13/16 17:15: WBC 5.2 D, RBC 3.36 L, Hgb 11.7 L, Hct 37.2, MCV 110.7 H, MCH 34.8, MCHC 31.5, RDW 16.7 H, Plt Count 189, MPV 10.0, Gran % 80.9 H, Lymph % ( Auto) 10.3 L, [place] % (Auto) 7.8 H, Eos % (Auto) 0.6 L, Baso % (Auto) 0.4, Gran # 4.24, Lymph # 0.5 L, [place] # 0.4, Eos # 0.0, Baso # 0.02 - RAD Interpretation Radiology Orders: 08/13/16 16:33 CHEST PORTABLE [RAD] Stat - Medication Orders Current Medication Orders: Discontinued Medications Iohexol (Omnipaque 350 100 Ml) Confirm Administered Dose 350 mg .ROUTE .Roc2Loc-MED ONE Stop: 08/13/16 18:20 Ondansetron HCl (Zofran Inj) 4 mg IVP STAT STA Stop: 08/13/16 16:34 Last Admin: 08/13/16 17:22 Dose: 4 mg Disposition/Present on Arrival - Present on Arrival History of DVT/PE: No History of Uncontrolled Diabetes: No Urinary Catheter: No History of Decub. Ulcer: No History Surgical Site Infection Following: None - Disposition Diagnosis: Abdominal pain, Nausea Disposition: AGAINST MEDICAL ADVICE Patient Problems: Current Active Problems Problem Status Onset Abdominal pain Acute Nausea Acute Condition: UNKNOWN Discharge Instructions (ExitCare): Acute Nausea and Vomiting (ED), Acute Abdominal Pain (ED) Additional Instructions: you are leaving without imaging of your abdomen. you are able to return at any time with any concern. follow up with your doctor and specialist. Prescriptions: Ondansetron [Zofran] 4 mg PO Q8H PRN #15 tab PRN Reason: Nausea/Vomiting Referrals: Mumtaz May MD [Staff Provider] - Follow up with primary Baljeet King MD [Primary Care Provider] - Follow up with primary
--- NOTE | 2016-08-13 16:48 | RAD ---
HISTORY: abdpain COMPARISON: 06/23/2016 FINDINGS: LUNGS: Chronic interstitial markings are seen slightly less prominent than on the previous exam. The lungs are otherwise clear PLEURA: No significant pleural effusion identified, no pneumothorax apparent. CARDIOVASCULAR: Normal. OSSEOUS STRUCTURES: No significant abnormalities. VISUALIZED UPPER ABDOMEN: Normal. OTHER FINDINGS: None. IMPRESSION: No active disease.
[2016-08-13 17:32] LABS: BASO # 0.02 K/mm3 (0.0-2.0); BASO % 0.4 % (0.0-3.0); EOS % 0.6 % (1.5-5.0); GRAN # 4.24 (1.4-6.5); GRAN % 80.9 % (50.0-68.0); HEMATOCRIT 37.2 % (36.0-48.0); LYMPH # 0.5 (1.2-3.4); LYMPH % 10.3 % (22.0-35.0); MEAN CELL VOLUME 110.7 fL (80.0-105.0); MEAN CORPUSCULAR HEMOGLOBIN 34.8 pg (25.0-35.0); MEAN CORPUSCULAR HGB CONC 31.5 g/dl (31.0-37.0); MONO # 0.4 (0.1-0.6); MONO % 7.8 % (1.0-6.0); PLATELET COUNT 189 10^3/uL (120.0-450.0); RED CELL DISTRIBUTION WIDTH 16.7 % (11.5-14.5); WHITE BLOOD COUNT 5.2 10^3/ul (4.5-11.0)
[2016-08-13 17:33] LABS: ADD MANUAL DIFF? NO
[2016-08-13 17:41] LABS: INR 1.16 (0.93-1.08)
[2016-08-13 17:50] LABS: ALB/GLOB RATIO 0.9 (1.1-1.8); ALKALINE PHOSPHATASE 165 U/L (38-133); ALT/SGPT 15 U/L (7-56); AMYLASE 52 U/L (35-125); AST/SGOT 26 U/L (15-39); BILIRUBIN,TOTAL 0.5 mg/dL (0.2-1.3); BLOOD UREA NITROGEN 8 mg/dL (7-21); CALCIUM 8.2 mg/dL (8.4-10.5); CARBON DIOXIDE 21 mmol/L (21-33); CHLORIDE 111 mmol/L (98-107); GFR AFRICAN-AMERICAN > 60; GLUCOSE,RANDOM 76 mg/dL (70-110); LIPASE 37 U/L (23-300); POTASSIUM 3.5 mmol/L (3.6-5.0); SODIUM 141 mmol/L (132-148); TOTAL PROTEIN 5.8 g/dL (5.8-8.3)
[2016-08-13 18:09] LABS: TROPONIN I < 0.01 ng/mL
[2016-08-13] MEDS ORDERED: Iohexol 350 MG/100 ML VIAL ONE (18:19)
[2016-08-13 19:38] VITALS: RESP 18; O2SAT 99
--- NOTE | 2016-08-14 14:26 | CARD ---
APPROVED REPORT EKG Measurement Heart [id number] [place] [id number] <Conclusion> Normal sinus rhythm Left axis deviation Left bundle branch block Abnormal ECG
== END 2016-08-13 19:38 | disposition left against medical advice (07) ==
LOC: ED 16:05
DX: R10.9 Unspecified abdominal pain (principal); R11.0 Nausea
CPT/HCPCS: 71010; 80053; 82150; 82550; 83615; 83690; 84484; 85025; 85610; 85730; 93005; 96374; 99284; J2405

== ENCOUNTER → 2016-09-19 | Emergency (ER) | payer MEDICARE, SELFPAY ==
[~2016-09-19] MED LIST: Morphine 2 mg/ml ISec IM STA; Morphine 2 mg/ml ISec ONE
[2016-09-19 08:55] VITALS: PULSE 150; BMI 17.2
[2016-09-19 09:06] VITALS: TEMP 98.4; O2SAT 98
--- NOTE | 2016-09-19 09:54 | CT ---
PROCEDURE: CT HEAD WITHOUT CONTRAST. HISTORY: injury COMPARISON: Head CT without contrast 07/31/2016. TECHNIQUE: Axial computed tomography images were obtained through the head/brain without intravenous contrast. Radiation dose: Total exam DLP = 735 mGy-cm. This CT exam was performed using one or more of the following dose reduction techniques: Automated exposure control, adjustment of the mA and/or kV according to patient size, and/or use of iterative reconstruction technique. FINDINGS: HEMORRHAGE: No intracranial hemorrhage. BRAIN: Stable age related neuro degenerative changes are identified comprised of diffuse cerebral atrophy and chronic microangiopathy once again. No suspicious interval findings are appreciated including cortical edema or mass effect. The midline brain anatomy remains unremarkable diffusely. There is no suspicious extra-axial fluid collection identified. . VENTRICLES: Unremarkable. No hydrocephalus. CALVARIUM: Unremarkable. PARANASAL SINUSES: Unremarkable as visualized. No significant inflammatory changes. MASTOID AIR CELLS: Unremarkable as visualized. No inflammatory changes. OTHER FINDINGS: None. IMPRESSION: Stable mild age-related neuro degenerative changes are identified without acute intracranial findings by standard CT criteria. Follow-up CT or MRI may be considered if clinically warranted.
--- NOTE | 2016-09-19 10:03 | ED PDOC ---
Arrival/HPI - General Chief Complaint: Trauma Time Seen by Provider: 09/19/16 09:21 Past Medical History - Past History Past History: Non-Contributing - Infectious Disease Hx of Infectious Diseases: None - Tetanus Immunization Tetanus Immunization: Up to Date, Unknown - Reproductive Menopause: Yes - Cardiac Hx Cardiac Disorders: Yes (mi) Hx Congestive Heart Failure: Yes Hx Hypertension: Yes - Pulmonary Hx Respiratory Disorders: Yes Hx Chronic Obstructive Pulmonary Disease (COPD): Yes - Neurological Hx Neurological Disorder: Yes (syncope ams) Hx Dizziness: Yes - HEENT Hx HEENT Disorder: Yes (eyeglasses) Other/Comment: developes ulcers left eye on eye drops - Renal Hx Renal Disorder: No - Endocrine/Metabolic Hx Endocrine Disorders: Yes Hx Diabetes Mellitus Type 1: Yes - Hematological/Oncological Hx Blood Disorders: Yes (thrombocytopenia) Hx Anemia: Yes (blood transfusion) Hx Cancer: Yes (follicular lymphoma 2007) Hx Chemotherapy: Yes Other/Comment: gastrointestinal ca 2007 - Integumentary Hx Dermatological Disorder: No (LEFT UPPER ARM IN AND OUT OF PORT.) Other/Comment: coccyx stage 2 1cm x 1cm ulcer pt refusing to turn over at present time to assess, assesment as per ed - Musculoskeletal/Rheumatological Hx Musculoskeletal Disorders: Yes Hx Arthritis: Yes - Gastrointestinal Hx Gastrointestinal Disorders: Yes (weight loss appetite changes) Hx Diverticulitis: Yes Hx Gastroesophageal Reflux: Yes Hx Liver Failure: Yes Other/Comment: colitis, gastrointestinal ca 2007, gastroenteritis, c dif, crohns - Genitourinary/Gynecological Hx Genitourinary Disorders: Yes Hx Incontinence: Yes - Psychiatric Hx Psychophysiologic Disorder: Yes Hx Anxiety: Yes Hx Bipolar Disorder: Yes Hx Depression: Yes Hx Emotional Abuse: No Hx Physical Abuse: No Hx Substance Use: No Other/Comment: alcohol abuse previous suicide attempt - Past Surgical History Past Surgical History: Non-Contributing - Surgical History Hx Cardiac Catheterization: Yes Hx Coronary Stent: Yes Other/Comment: pac joe in and out, c section left humerus sx, r arm deformity/ weakness - Anesthesia Hx Anesthesia Reactions: Yes (SEE ALLERGIES) Hx Malignant Hyperthermia: No - Suicidal Assessment Feels Threatened In Home Enviroment: No Family/Social History Smoking Status: Former Smoker Hx Alcohol Use: No (quit 1 month ago) Amount per day: 3 Hx Substance Use: No Hx Substance Use Treatment: No Allergies/Home Meds Allergies/Adverse Reactions: Allergies diphenhydramine HCl [From Benadryl] Allergy (Verified 09/19/16 09:11) SHORTNESS OF BREATH IV AND BLOOD PRESSURE LOW anesthesia Allergy (Intermediate, Uncoded 08/13/16 16:08) RASH anesthetic agents Allergy (Mild, Uncoded 08/13/16 16:08) ANAPHYLAXIS Home Medications: Home Meds Medication Instructions Recorded Confirmed Dexamethasone/Tobramycin [Tobradex 1 drop LEFTEYE QID 06/23/16 06/23/16 0.1%-0.3% 2.5 Ml] Physical Exam Vital Signs Temp Pulse Resp BP Pulse Ox 09/19/16 09:05 98.4 F 80 22 98/55 L 98 Medical Decision Making ED Course and Treatment: 09/19/16 10:03 I was available for consultation during PA evaluation. The chart was reviewed by me, and I agree with disposition. The documented history was done by the physician store operations manager. The documented physical exam was done by the physician store operations manager. The documented procedures were done by the physician store operations manager. - RAD Interpretation Radiology Orders: 09/19/16 09:21 CHEST W/O CONTRAST [CT] Stat HEAD W/O CONTRAST [CT] Stat 09/19/16 09:23 MAXILLOFACIAL W/O CONTRAST [CT] Stat Disposition/Present on Arrival - Present on Arrival History of DVT/PE: No History of Uncontrolled Diabetes: No Urinary Catheter: No History of Decub. Ulcer: No History Surgical Site Infection Following: None - Disposition Forms: [address] (Eritrean)
--- NOTE | 2016-09-19 10:06 | CT ---
PROCEDURE: CT MAXILLOFACIAL BONES WITHOUT CONTRAST HISTORY: injury COMPARISON: Prior facial CT 07/31/2016 without contrast. TECHNIQUE: Contiguous axial CT images of the maxillofacial bones were obtained. Coronal and sagittal reformats were generated. Radiation dose: Total exam DLP = 652 mGy-cm. This CT exam was performed using one or more of the following dose reduction techniques: Automated exposure control, adjustment of the mA and/or kV according to patient size, and/or use of iterative reconstruction technique. FINDINGS: NASAL BONES: Prior right nasal bone fracture again evident. No definite acute nasal bone fracture appreciate this time. ORBITS: No fracture or suspicious lytic or blastic process. Orbital contents appear grossly nonfocal as imaged. PARANASAL SINUSES/ MASTOIDS: Perineal sinuses remain well developed and aerated however limited bilateral mastoiditis is appreciated. MAXILLA: Unremarkable. MANDIBLE/ TEMPOROMANDIBULAR JOINTS: The vertical horizontal mandibular rami appear intact as well as their angles. However, a comminuted impacted fracture of the left mandibular condyle is appreciated with the articular eminence of the left temporomandibular joint unremarkable appearing. There is a fracture the proximal portion of the right mandibular condyle with anterior for angulation of the major distal fracture fragment, also slightly impacted. Limited comminution of the right mandibular condyle is also appreciated. The articular eminence at the right temporal bone is intact. SKULL BASE: Unremarkable. TEMPORAL BONES: Middle ears and mastoid grossly unremarkable. OTHER FINDINGS: None. IMPRESSION: Comminuted impacted fracture of the bilateral mandibular condyles is identified without druze bone fracture. Remaining facial bones are remarkable for chronic right nasal bone fracture. The mandibular condyles do not appear dislocated although fractured. Local soft tissue edema appears moderate. Trace bilateral mastoiditis.
--- NOTE | 2016-09-19 10:28 | ED PDOC ---
Arrival/HPI - General Historian: Patient, Spouse - General Chief Complaint: Trauma Time Seen by Provider: 09/19/16 09:21 - History of Present Illness Narrative History of Present Illness (Text): 09/19/16 10:24 65 yo female BIBA accompanied by for evaluation of head injury, facial contusion, chest contusion sustained yesterday. As per pt, "was walking at home and slipped over something, fell down". Pt c/o facial pain, contusion, and reproducible anterior chest wall pain. Otherwise, pt denies LOC, syncope, denies headache, dizziness, visual changes, focal deficits, denies neck pain, SOB, dyspnea, diaphoresis, palpitation, abd. pain, N/V, denies new obvious deformity, weakens, sensory or vascular deficits to B/L UEs and LEs. AT the time of evaluation, AAO#3, mod pain. (Robyn Rankin) Past Medical History - Provider Review Nursing Documentation Reviewed: Yes - Travel History Have you recently traveled outside [place] w/in the past 3 mons?: No - Past History Past History: Non-Contributing - Infectious Disease Hx of Infectious Diseases: None - Tetanus Immunization Tetanus Immunization: Up to Date, Unknown - Reproductive Menopause: Yes - Cardiac Hx Cardiac Disorders: Yes (mi) Hx Congestive Heart Failure: Yes Hx Hypertension: Yes - Pulmonary Hx Respiratory Disorders: Yes Hx Chronic Obstructive Pulmonary Disease (COPD): Yes - Neurological Hx Neurological Disorder: Yes (syncope ams) Hx Dizziness: Yes - HEENT Hx HEENT Disorder: Yes (eyeglasses) Other/Comment: developes ulcers left eye on eye drops - Renal Hx Renal Disorder: No - Endocrine/Metabolic Hx Endocrine Disorders: Yes Hx Diabetes Mellitus Type 1: Yes - Hematological/Oncological Hx Blood Disorders: Yes (thrombocytopenia) Hx Anemia: Yes (blood transfusion) Hx Cancer: Yes (follicular lymphoma 2007) Hx Chemotherapy: Yes Other/Comment: gastrointestinal ca 2008 - Integumentary Hx Dermatological Disorder: No (LEFT UPPER ARM IN AND OUT OF PORT.) Other/Comment: coccyx stage 2 1cm x 1cm ulcer pt refusing to turn over at present time to assess, assesment as per ed - Musculoskeletal/Rheumatological Hx Musculoskeletal Disorders: Yes Hx Arthritis: Yes - Gastrointestinal Hx Gastrointestinal Disorders: Yes (weight loss appetite changes) Hx Diverticulitis: Yes Hx Gastroesophageal Reflux: Yes Hx Liver Failure: Yes Other/Comment: colitis, gastrointestinal ca 2008, gastroenteritis, c dif, crohns - Genitourinary/Gynecological Hx Genitourinary Disorders: Yes Hx Incontinence: Yes - Psychiatric Hx Psychophysiologic Disorder: Yes Hx Anxiety: Yes Hx Bipolar Disorder: Yes Hx Depression: Yes Hx Emotional Abuse: No Hx Physical Abuse: No Hx Substance Use: No Other/Comment: alcohol abuse previous suicide attempt - Past Surgical History Past Surgical History: Non-Contributing - Surgical History Hx Cardiac Catheterization: Yes Hx Coronary Stent: Yes Other/Comment: pac joe in and out, c section left humerus sx, r arm deformity/ weakness - Anesthesia Hx Anesthesia Reactions: Yes (SEE ALLERGIES) Hx Malignant Hyperthermia: No - Suicidal Assessment Feels Threatened In Home Enviroment: No Family/Social History - Physician Review Nursing Documentation Reviewed: Yes Family/Social History: No Known Family HX Smoking Status: Former Smoker Hx Alcohol Use: No (quit 1 month ago) Amount per day: 3 Hx Substance Use: No Hx Substance Use Treatment: No Allergies/Home Meds Allergies/Adverse Reactions: Allergies diphenhydramine HCl [From Benadryl] Allergy (Verified 09/19/16 09:11) SHORTNESS OF BREATH IV AND BLOOD PRESSURE LOW anesthesia Allergy (Intermediate, Uncoded 08/13/16 16:08) RASH anesthetic agents Allergy (Mild, Uncoded 08/13/16 16:08) ANAPHYLAXIS Home Medications: Home Meds Medication Instructions Recorded Confirmed Dexamethasone/Tobramycin [Tobradex 1 drop LEFTEYE QID 06/23/16 06/23/16 0.1%-0.3% 2.5 Ml] Review of Systems - Review of Systems Constitutional: Normal Eyes: Normal ENT: Other ((+)facial contsuion) Respiratory: Normal. absent: SOB Cardiovascular: Normal. absent: Chest Pain, Palpitations, Edema Gastrointestinal: Normal. absent: Abdominal Pain, Vomiting Genitourinary Female: Normal Musculoskeletal: absent: Arthralgias, Back Pain, Neck Pain Skin: Laceration (chin) Neurological: absent: Headache, Dizziness, Focal Weakness, Facial Droop Endocrine: Normal Hemo/Lymphatic: Normal Psychiatric: Normal Physical Exam Vital Signs Reviewed: Yes Temperature: Afebrile Blood Pressure: Hypotensive Pulse: Regular Respiratory Rate: Normal Appearance: Positive for: Well-Appearing, Non-Toxic Pain Distress: Mild Mental Status: Positive for: Alert and Oriented X 3 - Systems Exam Head: Present: Normocephalic, Laceration ((+)2cm superficial laceration to chin. No palpable deformity, no wound FB. NO edema.) Pupils: Present: PERRL Extroacular Muscles: Present: EOMI Conjunctiva: Present: Normal Ears: Present: NORMAL TM, Normal Canal Mouth: Present: Moist Mucous Membranes, Normal Lips, Other (complete lower denture. No palpable deformity over maxilla and mandibula. NOrmal gingiva.). No : Drooling, Trismus Pharnyx: Present: Other (uvula midline, no edema. No post-nasal drip.) Nose (External): Present: Atraumatic Nose (Internal): No: Septal Deviation Neck: Present: Trachea Midline. No: MIDLINE TENDERNESS, Paraspinal Tenderness, JVD, Bruit Respiratory/Chest: Present: Clear to Auscultation, Good Air Exchange. No: Respiratory Distress Cardiovascular: Present: Regular Rate and Rhythm, Normal S1, S2 Abdomen: Present: Normal Bowel Sounds. No: Peritoneal Signs, Rebound, Guarding Back: Present: Normal Inspection. No: Midline Tenderness, Paraspinal Tenderness Upper Extremity: Present: NORMAL PULSES, Neurovascularly Intact, Other (RUE: chronic deformity s/p Right humerus fx. No eccymoses over Right arm.). No: Tenderness, Swelling Lower Extremity: Present: NORMAL PULSES, Normal ROM, Neurovascularly Intact. No : Deformity Neurological: Present: Speech Normal, Normal Sensory Function, Norm Deep Tendon Reflexes Skin: Present: Warm, Dry, Normal Color Vital Signs Temp Pulse Resp BP Pulse Ox 09/19/16 12:00 69 18 107/68 98 09/19/16 10:26 73 20 105/65 98 09/19/16 09:05 98.4 F 80 22 98/55 L 98 Medical Decision Making - Lab Interpretations I have reviewed the lab results: Yes Interpretation: No sign. chg./baseline - EKG Interpretation Type: 12 lead EKG ED Course and Treatment: 09/19/16 10:52 I was available for consultation during PA evaluation. The chart was reviewed by me, and I agree with disposition. The documented history was done by the physician pumper gauger. The documented physical exam was done by the physician pumper gauger. The documented procedures were done by the physician pumper gauger. (Eric Lloyd) 09/19/16 11:19, case discussed with [facility] Max/face service resident Dr. Mendoza and transfer arranged ER-ER. 09/19/16 12:39 Pt was re-evaluated now and sts, " I dont want to be transfer at [facility]". Pt was offered different possibilities, refused now and wants to be discharged home. Pt and was explained risks of leaving AMA. Pt was given change to ask questions and received full answers. Pt has full mental capacity to make a decision. Pt wish to be discharged and "find my own doctor". Pt advised return to ED at any time to complete eval/tx. (Robyn Rankin) - Lab Interpretations Lab Results: 09/19/16 10:45 09/19/16 11:30 Lab Results 09/19/16 11:30: Sodium 138, Potassium 4.0, Chloride 104, Carbon Dioxide 25, Anion Gap 13, BUN 14, Creatinine 0.8, Est GFR ( Amer) > 60, Est GFR (Non- Af Amer) > 60, Random Glucose 72, Calcium 8.4, Total Bilirubin 0.4, AST 19, ALT 16, Alkaline Phosphatase 114, Lactate Dehydrogenase 422, Total Creatine Kinase 32 L, Troponin I < 0.01, Total Protein 6.1, Albumin 3.0, Globulin 3.1, Albumin/ Globulin Ratio 1.0 L 09/19/16 10:45: PT 11.8, INR 1.09 H, APTT 30.2 09/19/16 10:45: WBC 5.5, RBC 2.85 L, Hgb 10.0 L, Hct 30.5 L, MCV 107.0 H, MCH 35.1 H, MCHC 32.8, RDW 14.8 H, Plt Count 196, MPV 9.5, Gran % 77.6 H, Lymph % ( Auto) 12.6 L, Gilchrist % (Auto) 8.9 H, Eos % (Auto) 0.7 L, Baso % (Auto) 0.2, Gran # 4.26, Lymph # 0.7 L, Gilchrist # 0.5, Eos # 0.0, Baso # 0.01 - RAD Interpretation Radiology Orders: 09/19/16 09:21 CHEST W/O CONTRAST [CT] Stat HEAD W/O CONTRAST [CT] Stat 09/19/16 09:23 MAXILLOFACIAL W/O CONTRAST [CT] Stat 09/19/16 11:22 CERVICAL SPINE W/O CONTRAST [CT] Stat Accession No. : [id number] Patient Name / ID : ARUNA JOHNSON / [id number] Exam Date : 09/19/2016 09:33:02 ( Approved ) Study Comment : Sex / Age : F / 65Y Creator : Alexander Wood MD Dictator : Alexander Wood MD Data Migration Lead : Assessment Specialist : Alexander Wood MD Approver2 : Report Date : 09/19/2016 09:53:09 My Comment : PROCEDURE: CT HEAD WITHOUT CONTRAST. HISTORY: injury COMPARISON: Head CT without contrast 07/31/2016. TECHNIQUE: Axial computed tomography images were obtained through the head/brain without intravenous contrast. Radiation dose: Total exam DLP = 735 mGy-cm. This CT exam was performed using one or more of the following dose reduction techniques: Automated exposure control, adjustment of the mA and/or kV according to patient size, and/or use of iterative reconstruction technique. FINDINGS: HEMORRHAGE: No intracranial hemorrhage. BRAIN: Stable age related neuro degenerative changes are identified comprised of diffuse cerebral atrophy and chronic microangiopathy once again. No suspicious interval findings are appreciated including cortical edema or mass effect. The midline brain anatomy remains unremarkable diffusely. There is no suspicious extra-axial fluid collection identified. . VENTRICLES: Unremarkable. No hydrocephalus. CALVARIUM: Unremarkable. PARANASAL SINUSES: Unremarkable as visualized. No significant inflammatory changes. MASTOID AIR CELLS: Unremarkable as visualized. No inflammatory changes. OTHER FINDINGS: None. IMPRESSION: Stable mild age-related neuro degenerative changes are identified without acute intracranial findings by standard CT criteria. Follow-up CT or MRI may be considered if clinically warranted. PROCEDURE: CT MAXILLOFACIAL BONES WITHOUT CONTRAST HISTORY: injury COMPARISON: Prior facial CT 07/31/2016 without contrast. TECHNIQUE: Contiguous axial CT images of the maxillofacial bones were obtained. Coronal and sagittal reformats were generated. Radiation dose: Total exam DLP = 652 mGy-cm. This CT exam was performed using one or more of the following dose reduction techniques: Automated exposure control, adjustment of the mA and/or kV according to patient size, and/or use of iterative reconstruction technique. FINDINGS: NASAL BONES: Prior right nasal bone fracture again evident. No definite acute nasal bone fracture appreciate this time. ORBITS: No fracture or suspicious lytic or blastic process. Orbital contents appear grossly nonfocal as imaged. PARANASAL SINUSES/ MASTOIDS: Perineal sinuses remain well developed and aerated however limited bilateral mastoiditis is appreciated. MAXILLA: Unremarkable. MANDIBLE/ TEMPOROMANDIBULAR JOINTS: The vertical horizontal mandibular rami appear intact as well as their angles. However, a comminuted impacted fracture of the left mandibular condyle is appreciated with the articular eminence of the left temporomandibular joint unremarkable appearing. There is a fracture the proximal portion of the right mandibular condyle with anterior for angulation of the major distal fracture fragment, also slightly impacted. Limited comminution of the right mandibular condyle is also appreciated. The articular eminence at the right temporal bone is intact. SKULL BASE: Unremarkable. TEMPORAL BONES: Middle ears and mastoid grossly unremarkable. OTHER FINDINGS: None. IMPRESSION: Comminuted impacted fracture of the bilateral mandibular condyles is identified without baptist bone fracture. Remaining facial bones are remarkable for chronic right nasal bone fracture. The mandibular condyles do not appear dislocated although fractured. Local soft tissue edema appears moderate. Trace bilateral mastoiditis. CHEST W/O CONTRAST: IMPRESSION: 1. No interval pulmonary contusion or pneumothorax is identified and there is no pleural or pericardial effusion. Stable cardiomegaly is identified. 2. Chronic limited compression fractures of T7 and T10 are identified as well as a transverse fracture through the mid sternum. No acute fracture identified including the bilateral ribs. 3. Chronic reticulonodular interstitial changes are again identified bilaterally with prior ground-glass opacities now resolved. Linear atelectasis or fibrosis is increased at the right upper lobe 4. Trace mucoid material is suggested at the proximal bilateral mainstem bronchi. FINDINGS: VERTEBRAE: No fracture. Normal alignment. No destructive bony lesion. Diffuse osteopenia suggests osteoporosis however. Degenerate change are identified the C1-2 reticulation of the craniocervical junction appearing intact. DISCS/SPINAL CANAL/NEURAL FORAMINA: No significant central canal stenosis. Moderate bilateral degenerative C4-5 and right C5-6 neural foraminal stenoses are identified a mild at the left C5-6 neural foramen. Moderate disc height loss is again seen at C5-6 with remaining intervertebral disc heights appear normal grossly. PARASPINAL SOFT TISSUES: Visualized prevertebral paraspinal soft tissues appear unremarkable. Incidental note is made of left subclavian density compatible with a left central venous line. OTHER FINDINGS: Trace biapical pleural fibrosis is noted. IMPRESSION: 1. Stable cervical spine CT without contrast. Note fracture or spondylolisthesis identified in the interval. Diffuse osteopenia suggests osteoporosis once again. 2. Mid and inferior cervical nor foraminal stenoses on a degenerative basis. No significant central canal stenosis. (Robyn Rankin) - EKG Interpretation EKG Interpretation (Text): 09/19/16 11:22 SR@69/min, LAD, LBBB. Compare to old EKG from 08/13/16 and appears unchanged. (Robyn Rankin) - Medication Orders Current Medication Orders: Discontinued Medications Morphine Sulfate (Morphine) 2 mg IM STAT STA Stop: 09/19/16 10:25 Last Admin: 09/19/16 10:28 Dose: 2 mg Morphine Sulfate (Morphine) Confirm Administered Dose 2 mg .ROUTE .STK-MED ONE Stop: 09/19/16 10:27 Last Admin: 09/19/16 10:28 Dose: Disposition/Present on Arrival - Present on Arrival Any Indicators Present on Arrival: No History of DVT/PE: No History of Uncontrolled Diabetes: No Urinary Catheter: No History of Decub. Ulcer: No History Surgical Site Infection Following: None - Disposition Have Diagnosis and Disposition been Completed?: Yes Disposition Time: 12:45 - Disposition Diagnosis: Head injury, Condylar process of mandible, closed fracture, Chin laceration Disposition: AGAINST MEDICAL ADVICE Patient Problems: Current Active Problems Problem Status Onset Head injury Acute Condylar process of mandible, closed fracture Acute Chin laceration Acute Condition: STABLE Referrals: Tripp King MD [Staff Provider] - Follow up with primary Forms: [facility] (Wallis[place]) Against Medical Advice - AMA Patient Left Against Medical Advice: The patient declines admission to the hospital and wishes to leave the Emergency Department. This action is against my medical advice. This decision was made with informed refusal. The patient was told that admission to the hospital is necessary. Explanation of the reasons why were discussed. The risks of leaving were explained to the patient and include, but are not limited to, worsening of known or currently unknown conditions, permanent disability and from undiagnosed or untreated conditions. The patient has the capacity to make this informed decision and understands my explanation of the current medical problem and risks of leaving. The patient voluntarily accepts these risks and signed an AMA form documenting our conversation. The patient was given the opportunity to ask questions and reconsider. The patient was encouraged to return to the Emergency Department at any time for further care. (Robyn Rankin)
--- NOTE | 2016-09-19 10:29 | CT ---
PROCEDURE: CT Chest without contrast HISTORY: injury COMPARISON: Chest abdomen and pelvis CT without contrast 03/01/2016. TECHNIQUE: Contiguous axial images were obtained through the chest without intravenous contrast enhancement. Sagittal and coronal reconstructions were performed. Radiation dose (DLP): 188 mGy-cm. This CT exam was performed using one or more of the following dose reduction techniques: Automated exposure control, adjustment of the mA and/or kV according to patient size, and/or use of iterative reconstruction technique. FINDINGS: LUNGS: There is no pneumothorax or prominent pulmonary contusion appreciated. Chronic reticulonodular interstitial pulmonary changes are again identified with apparent resolution of prior scattered ground-glass changes bilaterally. Linear atelectasis or fibrosis is increased at the right upper lobe. Trace mucoid material is suggested at the origins of the bilateral mainstem bronchi with the central airways are otherwise clear. MEDIASTINUM: Cardiomegaly appears stable. Shotty paratracheal lymph nodes are again identified within thoracic aorta remaining normal caliber overall. . PLEURA: No pleural fluid. No pneumothorax. BONES: Chronic T7 and T10 compression fractures are again noted as well as chronic sternal fracture. No acute rib fracture appreciated bilaterally. . No destructive lesion. UPPER ABDOMEN: A small right perinephric calcifications again appreciated as well as chronic streaky left perinephric change. OTHER FINDINGS: None. IMPRESSION: 1. No interval pulmonary contusion or pneumothorax is identified and there is no pleural or pericardial effusion. Stable cardiomegaly is identified. 2. Chronic limited compression fractures of T7 and T10 are identified as well as a transverse fracture through the mid sternum. No acute fracture identified including the bilateral ribs. 3. Chronic reticulonodular interstitial changes are again identified bilaterally with prior ground-glass opacities now resolved. Linear atelectasis or fibrosis is increased at the right upper lobe 4. Trace mucoid material is suggested at the proximal bilateral mainstem bronchi.
[2016-09-19 11:18] LABS: BASO # 0.01 K/mm3 (0.0-2.0); BASO % 0.2 % (0.0-3.0); EOS % 0.7 % (1.5-5.0); GRAN # 4.26 (1.4-6.5); GRAN % 77.6 % (50.0-68.0); LYMPH # 0.7 (1.2-3.4); LYMPH % 12.6 % (22.0-35.0); MEAN CORPUSCULAR HEMOGLOBIN 35.1 pg (25.0-35.0); MEAN CORPUSCULAR HGB CONC 32.8 g/dl (31.0-37.0); MEAN PLATELET VOLUME 9.5 fl (7.0-11.0); MONO # 0.5 (0.1-0.6); MONO % 8.9 % (1.0-6.0); PLATELET COUNT 196 10^3/uL (120.0-450.0); RBC 2.85 10^6/uL (3.5-6.1); RED CELL DISTRIBUTION WIDTH 14.8 % (11.5-14.5); WHITE BLOOD COUNT 5.5 10^3/ul (4.5-11.0)
[2016-09-19 11:27] LABS: INR 1.09 (0.93-1.08); PARTIAL THROMBOPLASTIN TIME 30.2 Seconds (23.7-30.8); PROTHROMBIN TIME 11.8 Seconds (9.9-11.8)
[2016-09-19 11:49] LABS: ALT/SGPT 16 U/L (7-56); AST/SGOT 19 U/L (15-39); BLOOD UREA NITROGEN 14 mg/dL (7-21); CALCIUM 8.4 mg/dL (8.4-10.5); GFR AFRICAN-AMERICAN > 60; GFR NON-AFRICAN AMERICAN > 60
[2016-09-19 12:01] LABS: TROPONIN I < 0.01 ng/mL
--- NOTE | 2016-09-19 12:22 | CT ---
PROCEDURE: CT Cervical Spine without contrast HISTORY: Injury COMPARISON: Cervical spine CT without contrast 07/31/2016. TECHNIQUE: Axial computed tomography images were obtained of the cervical spine without the use of intravenous contrast. Coronal and sagittal reformatted images were created and reviewed. Radiation dose: Total exam DLP = 188 mGy-cm. This CT exam was performed using one or more of the following dose reduction techniques: Automated exposure control, adjustment of the mA and/or kV according to patient size, and/or use of iterative reconstruction technique. FINDINGS: VERTEBRAE: No fracture. Normal alignment. No destructive bony lesion. Diffuse osteopenia suggests osteoporosis however. Degenerate change are identified the C1-2 reticulation of the craniocervical junction appearing intact. DISCS/SPINAL CANAL/NEURAL FORAMINA: No significant central canal stenosis. Moderate bilateral degenerative C4-5 and right C5-6 neural foraminal stenoses are identified a mild at the left C5-6 neural foramen. Moderate disc height loss is again seen at C5-6 with remaining intervertebral disc heights appear normal grossly. PARASPINAL SOFT TISSUES: Visualized prevertebral paraspinal soft tissues appear unremarkable. Incidental note is made of left subclavian density compatible with a left central venous line. OTHER FINDINGS: Trace biapical pleural fibrosis is noted. IMPRESSION: 1. Stable cervical spine CT without contrast. Note fracture or spondylolisthesis identified in the interval. Diffuse osteopenia suggests osteoporosis once again. 2. Mid and inferior cervical nor foraminal stenoses on a degenerative basis. No significant central canal stenosis.
[2016-09-19 12:27] VITALS: BP 107/68; PULSE 69; RESP 18
--- NOTE | 2016-09-20 07:54 | CARD ---
APPROVED REPORT EKG Measurement Heart [id number] <Conclusion> Normal sinus rhythm Left bundle branch block
== END | disposition left against medical advice (07) ==
LOC: ED 08:55
DX: S01.81XA Laceration without foreign body of other part of head, initial encounter (principal); S02.611A Fracture of condylar process of right mandible, initial encounter for closed fracture; S02.612A Fracture of condylar process of left mandible, initial encounter for closed fracture; W01.0XXA Fall on same level from slipping, tripping and stumbling without subsequent striking against object, initial encounter; Y93.01 Activity, walking, marching and hiking; Y92.009 Unspecified place in unspecified non-institutional (private) residence as the place of occurrence of the external cause
CPT/HCPCS: 70450; 70486; 71250; 72125; 80053; 82550; 83615; 84484; 85025; 85610; 85730; 93005; 96372; 99285; J2270

== ENCOUNTER 2016-09-20 11:46 | Emergency (ER) | payer MEDICARE ==
[2016-09-20 11:46] VITALS: PULSE 150; BMI 17.2
[2016-09-20 11:53] VITALS: RESP 18; TEMP 97.9
[2016-09-20] MEDS ORDERED: Morphine 2 mg/ml ISec IVP STA (12:35)
[2016-09-20 12:57] VITALS: BP 110/58; PULSE 82; O2SAT 96
--- NOTE | 2016-09-20 13:09 | ED PDOC ---
Arrival/HPI - General Chief Complaint: Trauma Time Seen by Provider: 09/20/16 12:31 Historian: Patient - History of Present Illness Narrative History of Present Illness (Text): 09/20/16 12:15 A 65 year old female, whose past medical history includes CHF, COPD, diabetes, Thrombocytes, GICA, and Reticular lymph CA, presents to the emergency department complaining of jaw pain after mechanical fall yesterday. Patient states that she and her were redoing the house and all the rugs were taken out, causing her to slip and fall, hitting her chin and chest. Patient came in yesterday to the emergency room for evaluation and was to be transferred to [facility]. Patient however left against medical advice due concern of transfer. Patient denies any cough, vision changes, loss of consciousness, headache, dizziness, neck pain, fever, chills, nausea, vomiting, diarrhea, or any other complaints. PMD: Dr. Baljeet King Time/Duration: Other (yesterday) Symptom Course: Unchanged Quality: Other Context: Home Past Medical History - Provider Review Nursing Documentation Reviewed: Yes - Past History Past History: Non-Contributing - Infectious Disease Hx of Infectious Diseases: None - Tetanus Immunization Tetanus Immunization: Up to Date, Unknown - Cardiac Hx Cardiac Disorders: Yes (mi) Hx Congestive Heart Failure: Yes Hx Hypertension: Yes - Pulmonary Hx Respiratory Disorders: Yes Hx Chronic Obstructive Pulmonary Disease (COPD): Yes - Neurological Hx Neurological Disorder: Yes (syncope ams) Hx Dizziness: Yes - HEENT Hx HEENT Disorder: Yes (eyeglasses) Other/Comment: developes ulcers left eye on eye drops - Renal Hx Renal Disorder: No - Endocrine/Metabolic Hx Endocrine Disorders: Yes Hx Diabetes Mellitus Type 1: Yes - Hematological/Oncological Hx Blood Disorders: Yes (thrombocytopenia) Hx Anemia: Yes (blood transfusion) Hx Cancer: Yes (follicular lymphoma 2007) Hx Chemotherapy: Yes Other/Comment: gastrointestinal ca 2007 - Integumentary Hx Dermatological Disorder: No (LEFT UPPER ARM IN AND OUT OF PORT.) Other/Comment: coccyx stage 2 1cm x 1cm ulcer pt refusing to turn over at present time to assess, assesment as per ed - Musculoskeletal/Rheumatological Hx Musculoskeletal Disorders: Yes Hx Arthritis: Yes Hx Falls: Yes - Gastrointestinal Hx Gastrointestinal Disorders: Yes (weight loss appetite changes) Hx Diverticulitis: Yes Hx Gastroesophageal Reflux: Yes Hx Liver Failure: Yes Other/Comment: colitis, gastrointestinal ca 2008, gastroenteritis, c dif, crohns - Genitourinary/Gynecological Hx Genitourinary Disorders: Yes Hx Incontinence: Yes - Psychiatric Hx Psychophysiologic Disorder: Yes Hx Anxiety: Yes Hx Bipolar Disorder: Yes Hx Depression: Yes Hx Emotional Abuse: No Hx Physical Abuse: No Hx Substance Use: No Other/Comment: alcohol abuse previous suicide attempt - Past Surgical History Past Surgical History: Non-Contributing - Surgical History Hx Cardiac Catheterization: Yes Hx Coronary Stent: Yes Other/Comment: pac joe in and out, c section left humerus sx, r arm deformity/ weakness - Anesthesia Hx Anesthesia: Yes Hx Anesthesia Reactions: Yes (SEE ALLERGIES) Hx Malignant Hyperthermia: No - Suicidal Assessment Feels Threatened In Home Enviroment: No Family/Social History - Physician Review Nursing Documentation Reviewed: Yes Family/Social History: No Known Family HX Smoking Status: Former Smoker Hx Alcohol Use: No (quit 1 month ago) Amount per day: 3 Hx Substance Use: No Hx Substance Use Treatment: No Allergies/Home Meds Allergies/Adverse Reactions: Allergies diphenhydramine HCl [From Benadryl] Allergy (Verified 09/20/16 11:51) SHORTNESS OF BREATH IV AND BLOOD PRESSURE LOW anesthesia Allergy (Intermediate, Uncoded 09/20/16 11:51) RASH anesthetic agents Allergy (Mild, Uncoded 09/20/16 11:51) ANAPHYLAXIS Review of Systems - Physician Review All systems were reviewed & negative as marked: Yes - Review of Systems Constitutional: Other (jaw pain). absent: Fevers, Night Sweats Eyes: absent: Vision Changes Cardiovascular: Chest Pain Gastrointestinal: absent: Diarrhea, Vomiting Musculoskeletal: absent: Neck Pain Neurological: absent: Headache, Dizziness Physical Exam Vital Signs Reviewed: Yes Vital Signs Temp Pulse Resp BP Pulse Ox 09/20/16 12:56 82 18 110/58 L 96 09/20/16 11:53 97.9 F 86 18 103/61 98 Temperature: Afebrile Blood Pressure: Normal Pulse: Regular Respiratory Rate: Normal Appearance: Positive for: Well-Appearing Pain Distress: None Mental Status: Positive for: Alert and Oriented X 3 - Systems Exam Head: Present: Normocephalic, Other (low chin lacerbation that was steri- stipped yesterday). No: Tenderness, Contusion, Swelling Pupils: Present: PERRL Extroacular Muscles: Present: EOMI Conjunctiva: Present: Normal Mouth: Present: Moist Mucous Membranes, Normal Lips, Normal Teeth, Other ( tenderness to bilateral jaws) Neck: Present: Normal Range of Motion. No: MIDLINE TENDERNESS Respiratory/Chest: Present: Clear to Auscultation, Good Air Exchange, Tender to Palpation (Chest wall tenderness to palpation; states no change from yesterday) . No: Respiratory Distress, Accessory Muscle Use Cardiovascular: Present: Regular Rate and Rhythm, Normal S1, S2. No: Murmurs Abdomen: Present: Normal Bowel Sounds. No: Tenderness, Distention, Peritoneal Signs Back: Present: Normal Inspection Upper Extremity: Present: NORMAL PULSES, Neurovascularly Intact, Deformity ( Deformity to right humerus which is old, nontender). No: Cyanosis, Edema, Tenderness, Erythema, Temperature Abnormalties Lower Extremity: Present: Normal Inspection. No: Edema Neurological: Present: GCS=15, CN II-XII Intact, Speech Normal Skin: Present: Warm, Dry, Normal Color. No: Rashes Psychiatric: Present: Alert, Oriented x 3, Normal Insight, Normal Concentration Medical Decision Making ED Course and Treatment: 09/20/16 13:12 Impression: 65 year old female with jaw and chest pain after mechanical fall yesterday. Physical exam shows tenderness to bilateral jaw and chest wall. Plan: -- Morphine -- Reassess and disposition Prior Visits: Notes and results from previous visits were reviewed. Patient was last seen in the emergency department on 09/19/2016 BIBA accompanied by for evaluation of head injury, facial contusion, chest contusion. Plan was to transfer patient to [facility], however she signed out against medical advice. Patient had CT imaging performed on 09/19/16, which showed: Report Date : 09/19/2016 09:53:09 PROCEDURE: CT HEAD WITHOUT CONTRAST. Dictator : Alexander Wood MD IMPRESSION: Stable mild age-related neuro degenerative changes are identified without acute intracranial findings by standard CT criteria. Follow-up CT or MRI may be considered if clinically warranted. Report Date : 09/19/2016 10:04:39 PROCEDURE: CT MAXILLOFACIAL BONES WITHOUT CONTRAST Dictator : Alexander Wood MD IMPRESSION: Comminuted impacted fracture of the bilateral mandibular condyles is identified without zoroastrian bone fracture. Remaining facial bones are remarkable for chronic right nasal bone fracture. The mandibular condyles do not appear dislocated although fractured. Local soft tissue edema appears moderate. Trace bilateral mastoiditis. Report Date : 09/19/2016 10:27:27 PROCEDURE: CT Chest without contrast Dictator : Alexander Wood MD IMPRESSION: 1. No interval pulmonary contusion or pneumothorax is identified and there is no pleural or pericardial effusion. Stable cardiomegaly is identified. 2. Chronic limited compression fractures of T7 and T10 are identified as well as a transverse fracture through the mid sternum. No acute fracture identified including the bilateral ribs. 3. Chronic reticulonodular interstitial changes are again identified bilaterally with prior ground-glass opacities now resolved. Linear atelectasis or fibrosis is increased at the right upper lobe 4. Trace mucoid material is suggested at the proximal bilateral mainstem bronchi. Report Date : 09/19/2016 12:21:18 PROCEDURE: CT Cervical Spine without contrast Dictator : Alexander Wood MD IMPRESSION: 1. Stable cervical spine CT without contrast. Note fracture or spondylolisthesis identified in the interval. Diffuse osteopenia suggests osteoporosis once again. 2. Mid and inferior cervical nor foraminal stenoses on a degenerative basis. No significant central canal stenosis. Progress Notes: 09/20/2016 12:[address] Bal, [facility] specialist, who states Dr. Florian will be accepting transfer to [facility]. Patient NPO. Copies of labs, EKG , and Imaging will be copied for transfer. - Medication Orders Current Medication Orders: Discontinued Medications Morphine Sulfate (Morphine) 2 mg IVP STAT STA Stop: 09/20/16 12:36 Last Admin: 09/20/16 12:57 Dose: 2 mg - Scribe Statement The provider has reviewed the documentation as recorded by the Yvonne Gonzalez Provider Scribe Attestation: All medical record entries made by the Layibsalud were at my direction and personally dictated by me. I have reviewed the chart and agree that the record accurately reflects my personal performance of the history, physical exam, medical decision making, and the department course for this patient. I have also personally directed, reviewed, and agree with the discharge instructions and disposition. Disposition/Present on Arrival - Present on Arrival Any Indicators Present on Arrival: No History of DVT/PE: No History of Uncontrolled Diabetes: No Urinary Catheter: No History of Decub. Ulcer: No History Surgical Site Infection Following: None - Disposition Have Diagnosis and Disposition been Completed?: Yes Diagnosis: Mandibular fracture [place]: [place] [facility] [place] Time: 14:00 Patient Plan: Transfer To Patient Problems: Current Active Problems Problem Status Onset Head injury Acute Condylar process of mandible, closed fracture Acute Chin laceration Acute Condition: FAIR Referrals: Tripp King MD [Staff Provider] - Follow up with primary Forms: SiSaf (Tajik)
== END 2016-09-20 14:15 | disposition short-term general hospital (02) ==
LOC: ED 11:46
DX: S02.611D Fracture of condylar process of right mandible, subsequent encounter for fracture with routine healing (principal); S02.612D Fracture of condylar process of left mandible, subsequent encounter for fracture with routine healing; W01.0XXD Fall on same level from slipping, tripping and stumbling without subsequent striking against object, subsequent encounter
CPT/HCPCS: 96374; 99285; J2270

== ENCOUNTER 2017-01-05 06:39 | Emergency (ER) | payer MEDICARE ==
[2017-01-05 06:40] VITALS: PULSE 150; BMI 17.2
[2017-01-05 06:57] VITALS: TEMP 98.5; O2SAT 100
[2017-01-05] MEDS ORDERED: Morphine 2 mg/ml ISec IVP STA (07:21)
--- NOTE | 2017-01-05 07:22 | ED PDOC ---
Arrival/HPI - General Chief Complaint: Medical Clearance Time Seen by Provider: 01/05/17 07:20 Historian: Patient - History of Present Illness Narrative History of Present Illness (Text): 01/05/17 07:22 A 66 year old female, whose past medical history includes CHF, COPD, diabetes, presents to the emergency department with a complaint of 1 day duration left sided neck pain radiating down the back to the waist after a mechanical fall 2 days ago. The patient states that she tripped over clothes in her home and her head hit the floor. Patient notes that she did not have any bumps, bleeding, or bruising to her head or LOC. She states she checked her pupils to make sure there was no dilation. She states that yesterday however, she began to feel nauseous and experience the pain radiating from her neck down to her waist. The patient denies fevers, chills, dizziness, chest pain, shortness of breath, dyspnea on exertion, cough, abdominal pain, vomiting, diarrhea, urinary/bowel changes, mild occlusion of the jaw, diplopia, or any other complaint. PMD: Dr. Baljeet King Time/Duration: Other (2 days ago) Symptom Onset: Sudden Symptom Course: Unchanged Activities at Onset: Rest, Light Context: Home, Tripped Past Medical History - Provider Review Nursing Documentation Reviewed: Yes - Past History Past History: Non-Contributing - Infectious Disease Hx of Infectious Diseases: None - Tetanus Immunization Tetanus Immunization: Up to Date, Unknown - Reproductive Menopause: Yes - Cardiac Hx Cardiac Disorders: Yes (mi) Hx Congestive Heart Failure: Yes Hx Hypertension: Yes - Pulmonary Hx Respiratory Disorders: Yes Hx Chronic Obstructive Pulmonary Disease (COPD): Yes Hx Emphysema: Yes - Neurological Hx Neurological Disorder: Yes (syncope ams) Hx Dizziness: Yes - HEENT Hx HEENT Disorder: Yes (eyeglasses) Other/Comment: developes ulcers left eye on eye drops - Renal Hx Renal Disorder: No - Endocrine/Metabolic Hx Endocrine Disorders: Yes Hx Diabetes Mellitus Type 1: Yes - Hematological/Oncological Hx Blood Disorders: Yes (thrombocytopenia) Hx Anemia: Yes (blood transfusion) Hx Cancer: Yes (follicular lymphoma 2007) Hx Chemotherapy: Yes Other/Comment: gastrointestinal ca 2007 - Integumentary Hx Dermatological Disorder: No (LEFT UPPER ARM IN AND OUT OF PORT.) Other/Comment: coccyx stage 2 1cm x 1cm ulcer pt refusing to turn over at present time to assess, assesment as per ed - Musculoskeletal/Rheumatological Hx Musculoskeletal Disorders: Yes Hx Arthritis: Yes Hx Falls: Yes Other/Comment: fx righjt humerus/unable to be repaired - Gastrointestinal Hx Gastrointestinal Disorders: Yes (weight loss appetite changes) Hx Diverticulitis: Yes Hx Gastroesophageal Reflux: Yes Hx Liver Failure: Yes Other/Comment: colitis, gastrointestinal ca 2008, gastroenteritis, c dif, crohns - Genitourinary/Gynecological Hx Genitourinary Disorders: No - Psychiatric Hx Psychophysiologic Disorder: Yes Hx Anxiety: Yes Hx Bipolar Disorder: Yes Hx Depression: Yes Hx Emotional Abuse: No Hx Physical Abuse: No Hx Substance Use: No Other/Comment: alcohol abuse - Past Surgical History Past Surgical History: Non-Contributing - Surgical History Hx Cardiac Catheterization: Yes Hx Coronary Stent: Yes Other/Comment: pac joe in and out, c section left humerus sx, r arm deformity/ weakness - Anesthesia Hx Anesthesia: Yes Hx Anesthesia Reactions: Yes (SEE ALLERGIES) Hx Malignant Hyperthermia: No - Suicidal Assessment Feels Threatened In Home Enviroment: No Family/Social History - Physician Review Nursing Documentation Reviewed: Yes Family/Social History: No Known Family HX Smoking Status: Heavy Smoker > 10 Cigarettes Daily Hx Alcohol Use: Yes Frequency of alcohol use: Socially Amount per day: 3 Hx Substance Use: No Hx Substance Use Treatment: No Allergies/Home Meds Allergies/Adverse Reactions: Allergies diphenhydramine HCl [From Benadryl] Allergy (Verified 01/05/17 06:43) SHORTNESS OF BREATH IV AND BLOOD PRESSURE LOW anesthesia Allergy (Intermediate, Uncoded 01/05/17 06:43) RASH anesthetic agents Allergy (Mild, Uncoded 01/05/17 06:43) ANAPHYLAXIS Home Medications: Home Meds Medication Instructions Recorded Confirmed chlordiazePOXIDE [Librium] 25 mg PO DAILY 01/05/17 01/05/17 Review of Systems - Physician Review All systems were reviewed & negative as marked: Yes - Review of Systems Constitutional: absent: Fevers Eyes: absent: Vision Changes (Diplopia) Physical Exam - Physical Exam Narrative Physical Exam (Text): Constitutional: No acute distress. Head: Normocephalic. Atraumatic. Eyes: PERRL. EOMI. ENT: Moist mucous membranes. Neck: Supple. No midline tenderness. Left paracervical tenderness. Cardiovascular: Regular rate. Chest: No tenderness. Respiratory: Clear to auscultation bilaterally. GI: Soft. Nontender. Nondistended. Pelvis: Stable. No tenderness. Back: No CVA tenderness. No midline tenderness. Musculoskeletal: No tenderness or swelling of extremities. Full ROM of extremities x4. Right arm deformity (old humeral fracture, not operated) Skin: No rash. Neurologic: Alert, no focal deficit. Cranial Nerves II-XII intact. Vital Signs Reviewed: Yes Vital Signs Temp Pulse Resp BP Pulse Ox 01/05/17 09:28 68 16 94/45 L 100 01/05/17 08:07 64 H 93/46 L 100 01/05/17 06:57 103/54 L 01/05/17 06:52 98.5 F 70 18 100 Temperature: Afebrile Blood Pressure: Normal Pulse: Regular Respiratory Rate: Normal Appearance: Positive for: Well-Appearing, Non-Toxic, Comfortable Pain Distress: None Mental Status: Positive for: Alert and Oriented X 3 Medical Decision Making ED Course and Treatment: 01/05/17 07:36 Impression: A 61 year old female presents to the emergency department with 1 day duration left neck pain radiating down to her waist after a fall 2 days ago. Plan: -- Cervical Spine/ Head CT -- Morphine and Zofran -- Reassess and disposition Prior Visits: Notes and results from previous visits were reviewed. Patient was last seen in the emergency department on 09/20/2016. Patient was seen in the Emergency department s/p mechanical fall. Patient was transferred to [facility]. Progress Notes: CT Cervical Spine without contrast Dictator : Baljeet Brownlee MD Report Date : 01/05/2017 09:11:28 IMPRESSION: Unremarkable CT of the cervical spine. CT HEAD WITHOUT CONTRAST Dictator : Baljeet Brownlee MD Report Date : 01/05/2017 09:09:10 IMPRESSION: No acute findings Discharged home, f/u PMD, return to ED for worsening pain, vomiting, confusion, or any other problem. - RAD Interpretation Radiology Orders: 01/05/17 07:22 CERVICAL SPINE W/O CONTRAST [CT] Stat HEAD W/O CONTRAST [CT] Stat - Medication Orders Current Medication Orders: Discontinued Medications Morphine Sulfate (Morphine) 2 mg IVP STAT STA Stop: 01/05/17 07:22 Last Admin: 01/05/17 08:04 Dose: 2 mg MAR Pain Assessment Document 01/05/17 08:04 (Rec: 01/05/17 08:06 [facility] [id number]) Pain Reassessment Is this a pain reassessment? Yes Sleep Is patient sleeping during reassessment? No Presence of Pain Presence of Pain Yes Pain Scale Used Pain Scale Used Numeric Location Upper or Lower Upper Pain Location Body Site Neck Description Description Constant Intensity of Pain at present 8 Pain Behavior Restlessness Aggravating Factors Changing Position IVP Administration Document 01/05/17 08:04 (Rec: 01/05/17 08:06 [facility]-[id number]) Charges for Administration # of IVP Administrations 1 Ondansetron HCl (Zofran Inj) 4 mg IVP STAT STA Stop: 01/05/17 07:22 Last Admin: 01/05/17 08:04 Dose: 4 mg IVP Administration Document 01/05/17 08:04 (Rec: 01/05/17 08:04 [facility] [id number]) Charges for Administration # of IVP Administrations 1 - Scribe Statement The provider has reviewed the documentation as recorded by the Layibe Olga Juarez Provider Scribe Attestation: All medical record entries made by the Scribe were at my direction and personally dictated by me. I have reviewed the chart and agree that the record accurately reflects my personal performance of the history, physical exam, medical decision making, and the department course for this patient. I have also personally directed, reviewed, and agree with the discharge instructions and disposition. Disposition/Present on Arrival - Present on Arrival Any Indicators Present on Arrival: No History of DVT/PE: No History of Uncontrolled Diabetes: No Urinary Catheter: No History of Decub. Ulcer: No History Surgical Site Infection Following: None - Disposition Have Diagnosis and Disposition been Completed?: Yes Diagnosis: Head injury Disposition: HOME/ ROUTINE Disposition Time: 09:28 Patient Plan: Discharge Condition: STABLE Discharge Instructions (ExitCare): Head Injury (ED) Prescriptions: Cyclobenzaprine HCl 5 mg PO Q8H PRN #12 tablet PRN Reason: Pain, Moderate (4-7) Ondansetron ODT [Zofran ODT] 4 mg PO Q8 #12 odt Referrals: [facility], [Primary Care Provider] - Follow up with primary Forms: Posse (Turkish)
--- NOTE | 2017-01-05 09:10 | CT ---
PROCEDURE: CT HEAD WITHOUT CONTRAST. HISTORY: fall, nausea COMPARISON: 09/19/2016 TECHNIQUE: Axial computed tomography images were obtained through the head/brain without intravenous contrast. Radiation dose: Total exam DLP = 629 mGy-cm. This CT exam was performed using one or more of the following dose reduction techniques: Automated exposure control, adjustment of the mA and/or kV according to patient size, and/or use of iterative reconstruction technique. FINDINGS: HEMORRHAGE: No intracranial hemorrhage. BRAIN: No mass effect or edema. No atrophy or chronic microvascular ischemic changes. VENTRICLES: Unremarkable. No hydrocephalus. CALVARIUM: Unremarkable. PARANASAL SINUSES: Unremarkable as visualized. No significant inflammatory changes. MASTOID AIR CELLS: Unremarkable as visualized. No inflammatory changes. OTHER FINDINGS: None. IMPRESSION: No acute findings
--- NOTE | 2017-01-05 09:13 | CT ---
PROCEDURE: CT Cervical Spine without contrast HISTORY: Fall, neck pain COMPARISON: 09/19/2016 TECHNIQUE: Axial computed tomography images were obtained of the cervical spine without the use of intravenous contrast. Coronal and sagittal reformatted images were created and reviewed. Radiation dose: Total exam DLP = 199 mGy-cm. This CT exam was performed using one or more of the following dose reduction techniques: Automated exposure control, adjustment of the mA and/or kV according to patient size, and/or use of iterative reconstruction technique. FINDINGS: VERTEBRAE: No fracture. Normal alignment. No destructive bony lesion. DISCS/SPINAL CANAL/NEURAL FORAMINA: No significant central canal or neural foraminal stenosis. Discs heights are grossly preserved. PARASPINAL SOFT TISSUES: Unremarkable. OTHER FINDINGS: None. IMPRESSION: Unremarkable CT of the cervical spine.
[2017-01-05 09:29] VITALS: BP 94/45; PULSE 68; RESP 16
== END 2017-01-05 10:31 | disposition home or self-care (01) ==
LOC: ED 06:39
DX: S09.90XA Unspecified injury of head, initial encounter (principal); W01.0XXA Fall on same level from slipping, tripping and stumbling without subsequent striking against object, initial encounter; Y92.009 Unspecified place in unspecified non-institutional (private) residence as the place of occurrence of the external cause
CPT/HCPCS: 70450; 72125; 96374; 96375; 99283; J2270; J2405

== ENCOUNTER 2017-01-09 09:40 | Emergency (ER) | payer MEDICARE ==
[2017-01-09 09:41] VITALS: PULSE 150; BMI 17.2
[2017-01-09] MEDS ORDERED: Sodium Chloride 0.9% 1,000 ML IV STA (10:08)
--- NOTE | 2017-01-09 10:14 | ED PDOC ---
Arrival/HPI - General Chief Complaint: Psychiatric Evaluation Time Seen by Provider: 01/09/17 09:43 Historian: Patient - History of Present Illness Narrative History of Present Illness (Text): 01/09/17 10:08 A 66 year old female presents to the emergency department complaining of nausea and a loss of appetite, not taking much PO. Patient reports upper and lower back pain, which has mildly improved since her last visit. States headache has gone away. Patient denies any fever, chills, vomiting, diarrhea, abdominal pain , chest pain, shortness of breath or any other complaints. PMD: Dr. King Time/Duration: Other Symptom Course: Unchanged Quality: Other Context: Home Past Medical History - Provider Review Nursing Documentation Reviewed: Yes - Past History Past History: Non-Contributing - Infectious Disease Hx of Infectious Diseases: None - Tetanus Immunization Tetanus Immunization: Up to Date, Unknown - Cardiac Hx Cardiac Disorders: Yes (mi) Hx Congestive Heart Failure: Yes Hx Hypertension: Yes - Pulmonary Hx Respiratory Disorders: Yes Hx Chronic Obstructive Pulmonary Disease (COPD): Yes Hx Emphysema: Yes - Neurological Hx Neurological Disorder: Yes (syncope ams) Hx Dizziness: Yes - HEENT Hx HEENT Disorder: Yes (eyeglasses) Other/Comment: developes ulcers left eye on eye drops - Renal Hx Renal Disorder: No - Endocrine/Metabolic Hx Endocrine Disorders: Yes Hx Diabetes Mellitus Type 1: Yes - Hematological/Oncological Hx Blood Disorders: Yes (thrombocytopenia) Hx Anemia: Yes (blood transfusion) Hx Cancer: Yes (follicular lymphoma 2007) Hx Chemotherapy: Yes Other/Comment: gastrointestinal ca 2007 - Integumentary Hx Dermatological Disorder: No (LEFT UPPER ARM IN AND OUT OF PORT.) Other/Comment: DECUBITI - Musculoskeletal/Rheumatological Hx Musculoskeletal Disorders: Yes Hx Arthritis: Yes Hx Falls: Yes Other/Comment: fx right humerus, NON UNION - Gastrointestinal Hx Gastrointestinal Disorders: Yes (weight loss appetite changes) Hx Diverticulitis: Yes Hx Gastroesophageal Reflux: Yes Hx Liver Failure: Yes Other/Comment: colitis, gastrointestinal ca 2007, gastroenteritis, c dif, crohns - Genitourinary/Gynecological Hx Genitourinary Disorders: No - Psychiatric Hx Psychophysiologic Disorder: Yes Hx Anxiety: Yes Hx Bipolar Disorder: Yes Hx Depression: Yes Hx Emotional Abuse: No Hx Physical Abuse: No Hx Substance Use: No Other/Comment: alcohol abuse - Past Surgical History Past Surgical History: Non-Contributing - Surgical History Hx Cardiac Catheterization: Yes Hx Coronary Stent: Yes Other/Comment: pac joe in and out, c section left humerus sx, r arm deformity/ weakness - Anesthesia Hx Anesthesia: Yes Hx Anesthesia Reactions: Yes (SEE ALLERGIES) Hx Malignant Hyperthermia: No - Suicidal Assessment Feels Threatened In Home Enviroment: No Family/Social History - Physician Review Nursing Documentation Reviewed: Yes Family/Social History: No Known Family HX Smoking Status: Heavy Smoker > 10 Cigarettes Daily Hx Alcohol Use: Yes Frequency of alcohol use: Daily Amount per day: 3 Hx Substance Use: No Hx Substance Use Treatment: No Allergies/Home Meds Allergies/Adverse Reactions: Allergies diphenhydramine HCl [From Benadryl] Allergy (Verified 01/09/17 09:43) SHORTNESS OF BREATH IV AND BLOOD PRESSURE LOW anesthesia Allergy (Intermediate, Uncoded 01/09/17 09:43) RASH anesthetic agents Allergy (Mild, Uncoded 01/09/17 09:43) ANAPHYLAXIS Home Medications: Home Meds Medication Instructions Recorded Confirmed chlordiazePOXIDE [Librium] 25 mg PO DAILY 01/05/17 01/09/17 Review of Systems - Physician Review All systems were reviewed & negative as marked: Yes - Review of Systems Constitutional: absent: Fevers, Night Sweats Respiratory: absent: SOB Cardiovascular: absent: Chest Pain Gastrointestinal: Nausea, Appetite Changes. absent: Abdominal Pain, Diarrhea, Vomiting Physical Exam - Physical Exam Narrative Physical Exam (Text): Constitutional: No acute distress. Head: Normocephalic. Atraumatic. Eyes: PERRL. ENT: Dry mucous membranes. Neck: Supple. No midline tenderness. Cardiovascular: Regular rate. Chest: No tenderness. Respiratory: Clear to auscultation bilaterally. GI: Soft. Nontender. Nondistended. Back: No CVA tenderness. No midline tenderness. Musculoskeletal: No tenderness or swelling of extremities. Skin: No rash. Neurologic: Alert, no focal deficit. Vital Signs Reviewed: Yes Vital Signs Temp Pulse Resp BP Pulse Ox 01/09/17 15:30 98.1 F 01/09/17 13:00 58 L 18 101/59 L 100 01/09/17 11:47 59 L 18 99/58 L 100 01/09/17 09:59 97.5 F L 74 17 100/61 97 Temperature: Afebrile Blood Pressure: Normal Pulse: Regular Respiratory Rate: Normal Appearance: Positive for: Well-Appearing, Non-Toxic, Comfortable Pain Distress: None Mental Status: Positive for: Alert and Oriented X 3 Medical Decision Making ED Course and Treatment: Patient initially refused to change out of her clothes. She also refused to be admitted to hospital. Later, patient states that she will agree to CT if she only takes her pants down to her knees, not completely off. Report Date : 01/09/2017 12:52:43 PROCEDURE: CT Chest, Abdomen and Pelvis with intravenous contrast Dictator : Baljeet Brownlee MD IMPRESSION: No acute findings Labs shows dehydration, other findings baseline. IVF administered. I advised the patient be admitted to hospital for further hydration and monitoring. She refused and wished to go home. - Lab Interpretations Lab Results: 01/09/17 11:15 01/09/17 11:15 Lab Results 01/09/17 11:15: Sodium 137, Potassium 5.4 H, Chloride 110 H, Carbon Dioxide 18 L , Anion Gap 14, BUN 19, Creatinine 1.0, Est GFR ( Amer) > 60, Est GFR ( Non-Af Amer) 55, Random Glucose 82, Calcium 8.6, Total Bilirubin 0.9, AST 23, ALT 27, Alkaline Phosphatase 182 H, Total Protein 6.4, Albumin 3.2, Globulin 3.1 , Albumin/Globulin Ratio 1.0 L, Lipase 23 01/09/17 11:15: WBC 3.6 L D, RBC 3.03 L, Hgb 12.0, Hct 35.9 L, MCV 118.5 H, MCH 39.6 H, MCHC 33.4, RDW 15.1 H, Plt Count 117 L, MPV 9.4, Gran % 81.8 H, Lymph % (Auto) 13.4 L, [place] % (Auto) 4.5, Eos % (Auto) 0.3 L, Baso % (Auto) 0.0, Gran # 2.93, Lymph # 0.5 L, [place] # 0.2, Eos # 0.0, Baso # 0.00 I have reviewed the lab results: Yes - RAD Interpretation Radiology Orders: 01/09/17 10:52 CHEST,ABD,PEL W/IV CONT ONLY [CT] Stat - Medication Orders Current Medication Orders: Discontinued Medications Sodium Chloride (Sodium Chloride 0.9%) 1,000 mls @ 999 mls/hr IV .Q1H1M STA Stop: 01/09/17 11:08 Last Admin: 01/09/17 11:22 Dose: 999 mls/hr eMAR Start Stop Document 01/09/17 11:22 MS (Rec: 01/09/17 11:23 MS [id number]) Intravenous Solution Start Date 01/09/17 Start Time 11:22 End Date 01/09/17 End time 12:22 Total Infusion Time 60 Morphine Sulfate (Morphine) 2 mg IVP STAT STA Stop: 01/09/17 10:09 Last Admin: 01/09/17 15:08 Dose: 2 mg IVP Administration Document 01/09/17 15:08 MS (Rec: 01/09/17 15:08 MS [id number]) Charges for Administration # of IVP Administrations 2 Morphine Sulfate (Morphine) 2 mg IVP STAT STA Stop: 01/09/17 15:03 Ondansetron HCl (Zofran Inj) 8 mg IVP STAT STA Stop: 01/09/17 10:09 Last Admin: 01/09/17 11:23 Dose: 8 mg IVP Administration Document 01/09/17 11:23 MS (Rec: 01/09/17 11:23 MS [id number]) Charges for Administration # of IVP Administrations 1 - Scribe Statement The provider has reviewed the documentation as recorded by the Scribe Stephanie Blanton Provider Scribe Attestation: All medical record entries made by the Scribe were at my direction and personally dictated by me. I have reviewed the chart and agree that the record accurately reflects my personal performance of the history, physical exam, medical decision making, and the department course for this patient. I have also personally directed, reviewed, and agree with the discharge instructions and disposition. Disposition/Present on Arrival - Present on Arrival Any Indicators Present on Arrival: No History of DVT/PE: No History of Uncontrolled Diabetes: No Urinary Catheter: No History of Decub. Ulcer: No History Surgical Site Infection Following: None - Disposition Have Diagnosis and Disposition been Completed?: Yes Diagnosis: Dehydration Disposition: AGAINST MEDICAL ADVICE Disposition Time: 13:00 Patient Plan: Discharge Condition: UNKNOWN Discharge Instructions (ExitCare): Dehydration (ED) Prescriptions: Ondansetron ODT [Zofran ODT] 4 mg PO Q8 #12 odt Referrals: Cait Henriquez Retonya, [Primary Care Provider] - Follow up with primary Forms: [facility] (Kinyarwanda) Against Medical Advice - AMA Patient Left Against Medical Advice: The patient declines admission to the hospital and wishes to leave the Emergency Department. This action is against my medical advice. This decision was made with informed refusal. The patient was told that admission to the hospital is necessary. Explanation of the reasons why were discussed. The risks of leaving were explained to the patient and include, but are not limited to, worsening of known or currently unknown conditions, permanent disability and from undiagnosed or untreated conditions. The patient has the capacity to make this informed decision and understands my explanation of the current medical problem and risks of leaving. The patient voluntarily accepts these risks and signed an AMA form documenting our conversation. The patient was given the opportunity to ask questions and reconsider. The patient was encouraged to return to the Emergency Department at any time for further care.
[2017-01-09] MEDS: Morphine 5 MG/ML SYRINGE IVP STA ×2 (11:23→15:08)
[2017-01-09 11:31] LABS: EOS % 0.3 % (1.5-5.0); GRAN # 2.93 (1.4-6.5); GRAN % 81.8 % (50.0-68.0); HEMATOCRIT 35.9 % (36.0-48.0); LYMPH # 0.5 (1.2-3.4); LYMPH % 13.4 % (22.0-35.0); MEAN CELL VOLUME 118.5 fl (80.0-105.0); MEAN CORPUSCULAR HEMOGLOBIN 39.6 pg (25.0-35.0); MEAN CORPUSCULAR HGB CONC 33.4 g/dl (31.0-37.0); MEAN PLATELET VOLUME 9.4 fl (7.0-11.0); MONO # 0.2 (0.1-0.6); MONO % 4.5 % (1.0-6.0); RED CELL DISTRIBUTION WIDTH 15.1 % (11.5-14.5); WHITE BLOOD COUNT 3.6 10^3/ul (4.5-11.0)
[2017-01-09 11:43] LABS: ALKALINE PHOSPHATASE 182 U/L (38-126); ALT/SGPT 27 U/L (7-56); AST/SGOT 23 U/L (14-36); BILIRUBIN,TOTAL 0.9 mg/dL (0.2-1.3); BLOOD UREA NITROGEN 19 mg/dL (7-21); CALCIUM 8.6 mg/dL (8.4-10.5); CARBON DIOXIDE 18 mmol/L (21-33); CHLORIDE 110 mmol/L (98-107); GFR AFRICAN-AMERICAN > 60; GLUCOSE,RANDOM 82 mg/dL (70-110); LIPASE 23 U/L (23-300); POTASSIUM 5.4 mmol/L (3.6-5.0); SODIUM 137 mmol/L (132-148); TOTAL PROTEIN 6.4 g/dL (5.8-8.3)
[2017-01-09 11:52] VITALS: RESP 18; O2SAT 100
[2017-01-09] MEDS ORDERED: Iohexol 350 MG/100 ML VIAL ONE (11:57)
--- NOTE | 2017-01-09 12:54 | CT ---
PROCEDURE: CT Chest, Abdomen and Pelvis with intravenous contrast HISTORY: back pain s/p fall, abd discomfort, vomiting COMPARISON: 09/19/2016 TECHNIQUE: IV dose administered: 100 cc of Omni 350 Radiation dose: Total exam DLP = 388 mGy-cm. This CT exam was performed using one or more of the following dose reduction techniques: Automated exposure control, adjustment of the mA and/or kV according to patient size, and/or use of iterative reconstruction technique. FINDINGS: CT CHEST WITH CONTRAST: LUNGS: Clear. No nodule, mass or consolidation. MEDIASTINUM: Unremarkable. Normal caliber aorta and pulmonary arterial trunk. No aortic dissection. Normal size heart. Calcifications are seen in the coronary arteries LYMPH NODES: Unremarkable. PLEURA: Unremarkable. No pneumothorax. No pleural fluid. BONES: Unremarkable. OTHER FINDINGS: None. CT ABDOMEN AND PELVIS: LIVER: Unremarkable. No gross lesion or ductal dilatation. GALLBLADDER AND BILE DUCTS: Unremarkable. PANCREAS: Unremarkable. No gross lesion or ductal dilatation. SPLEEN: Unremarkable. ADRENALS: Unremarkable. No mass. KIDNEYS AND URETERS: Unremarkable. No hydronephrosis. No solid mass. VASCULATURE: Unremarkable. No aortic aneurysm. BOWEL: Unremarkable. No obstruction. No gross mural thickening. APPENDIX: No evidence of appendicitis PERITONEUM: Unremarkable. No free fluid. No free air. LYMPH NODES: Unremarkable. No enlarged lymph nodes. BLADDER: Unremarkable. REPRODUCTIVE: Unremarkable. BONES: No acute fracture. OTHER FINDINGS: None. IMPRESSION: No acute findings
[2017-01-09 13:39] VITALS: BP 101/59; PULSE 58
[2017-01-09] MEDS ORDERED: Morphine 5 MG/ML SYRINGE IM STA (14:57)
[2017-01-09] MEDS ORDERED: Morphine 2 mg/ml ISec IVP STA (15:02)
[2017-01-09 16:08] VITALS: TEMP 98.1
== END 2017-01-09 15:30 | disposition left against medical advice (07) ==
LOC: ED 09:40
DX: E86.0 Dehydration (principal); I10 Essential (primary) hypertension; K21.9 Gastro-esophageal reflux disease without esophagitis; F17.210 Nicotine dependence, cigarettes, uncomplicated
CPT/HCPCS: 71260; 74177; 80053; 83690; 85025; 96361; 96374; 96375; 96376; 99284; J2270; J2405; J7040; Q9967

== ENCOUNTER 2017-01-13 14:19 | Inpatient (IN) | payer MEDICARE, OTHER ==
[2017-01-13 14:20] VITALS: PULSE 150
[2017-01-13 14:54] VITALS: BMI 20.1
[2017-01-13] MEDS: Sodium Chloride 0.9% 1,000 ML IV SCH (16:21)
[2017-01-13 16:23] LABS: EOS % 0.3 % (1.5-5.0); GRAN # 2.93 (1.4-6.5); GRAN % 82.3 % (50.0-68.0); HEMATOCRIT 30.2 % (36.0-48.0); LYMPH # 0.4 (1.2-3.4); LYMPH % 12.1 % (22.0-35.0); MEAN CELL VOLUME 118.4 fl (80.0-105.0); MEAN CORPUSCULAR HEMOGLOBIN 39.2 pg (25.0-35.0); MEAN CORPUSCULAR HGB CONC 33.1 g/dl (31.0-37.0); MEAN PLATELET VOLUME 9.3 fl (7.0-11.0); MONO # 0.2 (0.1-0.6); MONO % 5.3 % (1.0-6.0); RED CELL DISTRIBUTION WIDTH 15.2 % (11.5-14.5); WHITE BLOOD COUNT 3.6 10^3/ul (4.5-11.0)
[2017-01-13 16:40] LABS: TROPONIN I < 0.01 ng/mL
[2017-01-13 16:42] LABS: ALKALINE PHOSPHATASE 173 U/L (38-126); ALT/SGPT 52 U/L (7-56); AST/SGOT 90 U/L (14-36); BLOOD UREA NITROGEN 16 mg/dL (7-21); CALCIUM 8.3 mg/dL (8.4-10.5); CARBON DIOXIDE 19 mmol/L (21-33); CHLORIDE 111 mmol/L (98-107); GFR AFRICAN-AMERICAN > 60; GLUCOSE,RANDOM 65 mg/dL (70-110); MAGNESIUM 1.8 mg/dL (1.7-2.2); POTASSIUM 4.2 mmol/L (3.6-5.0); SODIUM 137 mmol/L (132-148); TOTAL PROTEIN 5.6 g/dL (5.8-8.3)
[2017-01-13] MEDS ORDERED: Morphine 2 mg/ml ISec IVP STA (17:36)
--- NOTE | 2017-01-13 17:52 | ED PDOC ---
Arrival/HPI - General Chief Complaint: Flu-like Symptoms Time Seen by Provider: 01/13/17 14:49 Historian: Patient - History of Present Illness Narrative History of Present Illness (Text): 01/13/17 17:00 A 66 year old female, whose past medical history includes diabetes, pneumonia, gastroenteritis, hypokalemia, COPD, syncope, and hepatitis, presents to the emergency department for generalized weakness and decreased appetite, which began 1 week ago. The patient states she past out a couple of weeks ago. She denies any recent travel, sick contacts, cough, chest pain, shortness of breath , or any other complaints at this time. The patient was last seen in the emergency department 4 days ago and she signed out Against Medical Advice. Time/Duration: 1 week Symptom Onset: Gradual Quality: Other (weakness) Activities at Onset: Light Context: Home Past Medical History - Provider Review Nursing Documentation Reviewed: Yes - Past History Past History: Non-Contributing - Infectious Disease Hx of Infectious Diseases: None - Tetanus Immunization Tetanus Immunization: Up to Date, Unknown - Cardiac Hx Cardiac Disorders: Yes (mi) Hx Congestive Heart Failure: Yes Hx Hypertension: Yes - Pulmonary Hx Respiratory Disorders: Yes Hx Chronic Obstructive Pulmonary Disease (COPD): Yes Hx Emphysema: Yes - Neurological Hx Neurological Disorder: Yes (syncope ams) Hx Dizziness: Yes - HEENT Hx HEENT Disorder: Yes (eyeglasses) Other/Comment: developes ulcers left eye on eye drops - Renal Hx Renal Disorder: No - Endocrine/Metabolic Hx Endocrine Disorders: Yes Hx Diabetes Mellitus Type 1: Yes - Hematological/Oncological Hx Blood Disorders: Yes (thrombocytopenia) Hx Anemia: Yes (blood transfusion) Hx Cancer: Yes (follicular lymphoma 2007) Hx Chemotherapy: Yes Other/Comment: gastrointestinal ca 2008 - Integumentary Hx Dermatological Disorder: No (LEFT UPPER ARM IN AND OUT OF PORT.) Other/Comment: DECUBITI - Musculoskeletal/Rheumatological Hx Musculoskeletal Disorders: Yes Hx Arthritis: Yes Hx Falls: Yes Other/Comment: fx right humerus, NON UNION - Gastrointestinal Hx Gastrointestinal Disorders: Yes (weight loss appetite changes) Hx Diverticulitis: Yes Hx Gastroesophageal Reflux: Yes Hx Liver Failure: Yes Other/Comment: colitis, gastrointestinal ca 2008, gastroenteritis, c dif, crohns - Genitourinary/Gynecological Hx Genitourinary Disorders: No - Psychiatric Hx Psychophysiologic Disorder: Yes Hx Anxiety: Yes Hx Bipolar Disorder: Yes Hx Depression: Yes Hx Emotional Abuse: No Hx Physical Abuse: No Hx Substance Use: No Other/Comment: alcohol abuse - Past Surgical History Past Surgical History: Non-Contributing - Surgical History Hx Cardiac Catheterization: Yes Hx Coronary Stent: Yes Other/Comment: pac joe in and out, c section left humerus sx, r arm deformity/ weakness - Anesthesia Hx Anesthesia: Yes Hx Anesthesia Reactions: Yes (SEE ALLERGIES) Hx Malignant Hyperthermia: No - Suicidal Assessment Feels Threatened In Home Enviroment: No Family/Social History - Physician Review Nursing Documentation Reviewed: Yes Family/Social History: No Known Family HX Smoking Status: Heavy Smoker > 10 Cigarettes Daily Hx Alcohol Use: Yes Amount per day: 3 Hx Substance Use: No Hx Substance Use Treatment: No Allergies/Home Meds Allergies/Adverse Reactions: Allergies diphenhydramine HCl [From Benadryl] Allergy (Verified 01/13/17 14:26) SHORTNESS OF BREATH IV AND BLOOD PRESSURE LOW anesthesia Allergy (Intermediate, Uncoded 01/13/17 14:26) RASH anesthetic agents Allergy (Mild, Uncoded 01/13/17 14:26) ANAPHYLAXIS Home Medications: Home Meds Medication Instructions Recorded Confirmed chlordiazePOXIDE [Librium] 25 mg PO DAILY 01/05/17 01/13/17 Review of Systems - Physician Review All systems were reviewed & negative as marked: Yes - Review of Systems Constitutional: Other (generalized weakness). absent: Fevers Respiratory: absent: SOB Cardiovascular: absent: Chest Pain Physical Exam Vital Signs Reviewed: Yes Vital Signs Temp Pulse Resp BP Pulse Ox 01/13/17 15:13 98.1 F 63 18 98/59 L 100 Temperature: Afebrile Blood Pressure: Hypotensive Pulse: Regular Respiratory Rate: Normal Appearance: Positive for: Non-Toxic, Comfortable, Other (thin ) Pain Distress: None Mental Status: Positive for: Alert and Oriented X 3 - Systems Exam Head: Present: Atraumatic, Normocephalic Pupils: Present: PERRL Extroacular Muscles: Present: EOMI Conjunctiva: Present: Normal Mouth: Present: Moist Mucous Membranes Neck: Present: Normal Range of Motion Respiratory/Chest: Present: Clear to Auscultation, Good Air Exchange. No: Respiratory Distress, Accessory Muscle Use Cardiovascular: Present: Regular Rate and Rhythm, Normal S1, S2. No: Murmurs Abdomen: Present: Normal Bowel Sounds. No: Tenderness, Distention, Peritoneal Signs Back: Present: Normal Inspection Upper Extremity: Present: Normal Inspection. No: Cyanosis, Edema Lower Extremity: Present: Normal Inspection. No: Edema Neurological: Present: GCS=15, CN II-XII Intact, Speech Normal Skin: Present: Warm, Dry, Normal Color. No: Rashes Psychiatric: Present: Alert, Oriented x 3, Normal Insight, Normal Concentration Medical Decision Making ED Course and Treatment: 01/13/17 17:00 Impression: A 66 year old female with generalized weakness. Differential Diagnosis included but are not limited to: Plan: -- EKG -- Chest X-ray -- Labs -- Toradol, Morphine, Zofran, IV Fluids -- Urinalysis -- Reassess and disposition Prior Visits: Notes and results from previous visits were reviewed. The patient was last seen in the emergency department 4 days ago and she signed out against medical advice. Progress Notes: EKG: Ordered, reviewed, and independently interpreted the EKG. Rate : 63 BPM Rhythm : NSR Interpretation : No ST-segment elevations or depressions, no T-wave inversions, normal intervals. Comparison : No previous EKG for comparison. - Lab Interpretations Lab Results: 01/13/17 16:00 01/13/17 16:00 Lab Results 01/13/17 16:10: Influenza Typ A,B (EIA) Negative for flu a/b 01/13/17 16:00: Sodium 137, Potassium 4.2, Chloride 111 H, Carbon Dioxide 19 L, Anion Gap 11, BUN 16, Creatinine 1.0, Est GFR ( Amer) > 60, Est GFR (Non- Af Amer) 55, Random Glucose 65 L, Calcium 8.3 L, Magnesium 1.8, Total Bilirubin 1.0, AST 90 H D, ALT 52, Alkaline Phosphatase 173 H, Lactate Dehydrogenase 434, Total Creatine Kinase 27 L, Troponin I < 0.01, NT-Pro-B Natriuret Pep 8140 H, Total Protein 5.6 L, Albumin 2.8 L, Globulin 2.8, Albumin/Globulin Ratio 1.0 L 01/13/17 16:00: WBC 3.6 L, RBC 2.55 L, Hgb 10.0 L D, Hct 30.2 L, MCV 118.4 H, MCH 39.2 H, MCHC 33.1, RDW 15.2 H, Plt Count 121, MPV 9.3, Gran % 82.3 H, Lymph % (Auto) 12.1 L, [place] % (Auto) 5.3, Eos % (Auto) 0.3 L, Baso % (Auto) 0.0, Gran # 2.93, Lymph # 0.4 L, [place] # 0.2, Eos # 0.0, Baso # 0.00 - RAD Interpretation Radiology Orders: 01/13/17 15:07 CHEST PORTABLE [RAD] Stat - Medication Orders Current Medication Orders: Sodium Chloride (Sodium Chloride 0.9%) 1,000 mls @ 100 mls/hr IV .Q10H BELEM Last Admin: 01/13/17 16:21 Dose: 100 mls/hr eMAR Start Stop Document 01/13/17 16:21 MS (Rec: 01/13/17 16:22 MS [id number]) Intravenous Solution Start Date 01/13/17 Start Time 16:22 End Date 01/13/17 Discontinued Medications Ketorolac Tromethamine (Toradol) 30 mg IVP STAT STA Stop: 01/13/17 15:13 Last Admin: 01/13/17 16:22 Dose: 30 mg [facility] Pain Assessment Document 01/13/17 16:22 MS (Rec: 01/13/17 16:24 MS [id number]) Pain Reassessment Is this a pain reassessment? Yes Sleep Is patient sleeping during reassessment? No Presence of Pain Presence of Pain Yes Pain Scale Used Pain Scale Used Numeric Location Pain Location Body Site Generalized Description Description Constant Intensity of Pain at present 5 Pain Behavior Moaning Withdrawal from Touch Aggravating Factors ADL's IVP Administration Document 01/13/17 16:22 MS (Rec: 01/13/17 16:24 MS [id number]) Charges for Administration # of IVP Administrations 1 Re-Assess: [facility] Pain Assessment Document 01/13/17 17:22 MS (Rec: 01/13/17 17:58 MS [id number]) Pain Reassessment Is this a pain reassessment? Yes Sleep Is patient sleeping during reassessment? No Presence of Pain Presence of Pain Yes Pain Scale Used Pain Scale Used Numeric Location Pain Location Body Site Generalized Description Description Constant Intensity of Pain at present 5 Pain Behavior Moaning Irritability Restlessness Morphine Sulfate (Morphine) 2 mg IVP STAT STA Stop: 01/13/17 17:37 Last Admin: 01/13/17 17:54 Dose: 2 mg MAR Pain Assessment Document 01/13/17 17:54 MS (Rec: 01/13/17 17:57 MS [id number]) Pain Reassessment Is this a pain reassessment? Yes Sleep Is patient sleeping during reassessment? No Presence of Pain Presence of Pain Yes Pain Scale Used Pain Scale Used Numeric Location Pain Location Body Site Generalized Description Description Constant Intensity of Pain at present 5 Pain Behavior Withdrawal from Touch Restlessness Facial Grimacing Aggravating Factors ADL's IVP Administration Document 01/13/17 17:54 MS (Rec: 01/13/17 17:57 MS [id number]) Charges for Administration # of IVP Administrations 1 Ondansetron HCl (Zofran Inj) 4 mg IVP STAT STA Stop: 01/13/17 15:13 Last Admin: 01/13/17 16:22 Dose: 4 mg IVP Administration Document 01/13/17 16:22 MS (Rec: 01/13/17 16:22 MS [id number]) Charges for Administration # of IVP Administrations 1 - Scribe Statement The provider has reviewed the documentation as recorded by the Yvonne Mcnally Provider Scribe Attestation: All medical record entries made by the Scribe were at my direction and personally dictated by me. I have reviewed the chart and agree that the record accurately reflects my personal performance of the history, physical exam, medical decision making, and the department course for this patient. I have also personally directed, reviewed, and agree with the discharge instructions and disposition. Disposition/Present on Arrival - Present on Arrival Any Indicators Present on Arrival: No History of DVT/PE: No History of Uncontrolled Diabetes: No Urinary Catheter: No History of Decub. Ulcer: No History Surgical Site Infection Following: None - Disposition Have Diagnosis and Disposition been Completed?: Yes Diagnosis: Congestive heart failure (CHF), Dehydration, Weakness Disposition: HOSPITALIZED Disposition Time: 16:50 Condition: STABLE
[2017-01-13] MEDS: Oxycodone/Acetaminophen 5/325 mg Tab PO PRN (20:57)
[2017-01-13] MEDS ORDERED: Pneumococcal 23-Valent Vaccine IM ONE (23:31)
[2017-01-14] MEDS: Sodium Chloride 0.9% 1,000 ML IV SCH ×3 (01:23→22:07)
[2017-01-14] MEDS: Oxycodone/Acetaminophen 5/325 mg Tab PO PRN ×3 (08:51→22:12)
--- NOTE | 2017-01-14 09:02 | CARD ---
APPROVED REPORT EKG Measurement Heart [id number] <Conclusion> Normal sinus rhythm LBBB No change
--- NOTE | 2017-01-14 10:07 | RAD ---
HISTORY: r/o infiltrate COMPARISON: 08/13/2016 FINDINGS: LUNGS: No active pulmonary disease. PLEURA: No significant pleural effusion identified, no pneumothorax apparent. CARDIOVASCULAR: Normal. OSSEOUS STRUCTURES: No significant abnormalities. VISUALIZED UPPER ABDOMEN: Normal. OTHER FINDINGS: No change in appearance of left sided central line that terminates in the upper right atrium IMPRESSION: No active disease.
--- NOTE | 2017-01-14 10:19 | RAD ---
PROCEDURE: Left ribs HISTORY: L rib pain COMPARISON: TECHNIQUE: Three views FINDINGS: There is no evidence of rib fracture or pneumothorax. IMPRESSION: Negative study
[2017-01-15 01:47] LABS: PH,URINE 5.5 (4.7-8.0); URINE BILIRUBIN NEGATIVE (NEGATIVE); URINE BLOOD NEGATIVE (NEGATIVE); URINE GLUCOSE (UA) NEGATIVE (NEGATIVE); URINE KETONE NEGATIVE (NEGATIVE); URINE LEUKOCYTE ESTERASE SMALL Leu/uL (NEGATIVE); URINE PROTEIN NEGATIVE mg/dL (<30 mg/dL); URINE UROBILINOGEN 0.2 E.U./dL (<1 E.U./dL)
[2017-01-15 01:48] LABS: URINE APPEARANCE CLEAR (CLEAR); URINE COLOR YELLOW (YELLOW)
[2017-01-15 02:09] LABS: URINE BACTERIA SMALL (NEG); URINE RBC 0 - 2 /hpf (0-2); URINE WBC 15 - 20 /hpf (0-6)
[2017-01-15] MEDS: Nystatin 100,000 Units/ml Oral Susp 5 ml UD PO SCH ×4 (09:37→21:05)
[2017-01-15] MEDS: Oxycodone/Acetaminophen 5/325 mg Tab PO PRN ×2 (09:37→21:06)
[2017-01-15 10:43] LABS: ALB/GLOB RATIO 0.9 (1.1-1.8); ALKALINE PHOSPHATASE 157 U/L (38-126); ALT/SGPT 32 U/L (7-56); AST/SGOT 28 U/L (14-36); BILIRUBIN,TOTAL 0.8 mg/dL (0.2-1.3); BLOOD UREA NITROGEN 12 mg/dL (7-21); CALCIUM 7.7 mg/dL (8.4-10.5); CARBON DIOXIDE 17 mmol/L (21-33); CHLORIDE 119 mmol/L (98-107); GFR AFRICAN-AMERICAN > 60; GLUCOSE,RANDOM 78 mg/dL (70-110); POTASSIUM 4.3 mmol/L (3.6-5.0); SODIUM 142 mmol/L (132-148); TOTAL PROTEIN 4.8 g/dL (5.8-8.3)
--- NOTE | 2017-01-15 14:21 | PN ---
DAILY PROGRESS NOTE DATE: 01/14/2017 SUBJECTIVE: The patient is a 66-year-old female, who is admitted with dehydration and weakness after apparently waking in the morning and being unable to get out of bed due to rather sudden onset of weakness. The patient is known to have congestive heart failure in the past, alcoholic bone marrow suppression with pancytopenia, and history of COPD. When seen today, the patient is awake, alert and oriented. Her significant other is at bedside. X-rays were done because of pain in the ribs, status post fall and these are negative for rib fractures. PHYSICAL EXAMINATION: VITAL SIGNS: She is afebrile at 97.2 degrees Fahrenheit, blood pressure is 79/41 with a heart rate of 61. LUNGS: Clear anteriorly. HEART: Regular. ABDOMEN: Soft and nontender. LABORATORY DATA: This morning's laboratory shows the white blood cell count to be 3.6, hemoglobin and hematocrit are 10.0 and 30.7, and platelet count is 121. BUN is 16, creatinine 1.0. Sodium is 137, potassium is 4.2. ASSESSMENT AND PLAN: So, we are going to continue with current regimen of the patient. For the patient, we are encouraging physical therapy to increase ambulation with hopes of TCU evaluation and transfer to the Transitional Care Unit in the morning once a bed becomes available. Baljeet King MD
--- NOTE | 2017-01-15 19:48 | HP ---
HISTORY OF PRESENT ILLNESS: The patient is a 66-year-old female who was brought to the emergency room by her significant other with a complaint of total weakness. As per the patient day or two before, she was feeling well and she went to bed; however in the morning, she could not move her legs. She was too weak to get out of bed. She had fallen several times at home, the last fall was approximately one week ago. PAST MEDICAL HISTORY: She is known to have past medical history of alcohol abuse with congestive heart failure, cardiomyopathy, and COPD. She has a nonhealing fracture of the right humerus for several years. The patient refused further attempts at surgery after she coded with induction of anesthesia during the first attempt to surgically heal the fracture. She had a history of follicular lymphoma in 2007 and alcoholic pancytopenia. So, the patient was evaluated by the emergency room and is admitted. MEDICATIONS: At home included Librium 25 mg daily, Ambien 5 mg at bedtime, and Xanax 1 mg every 6 hours as needed. ALLERGIES: SHE IS KNOWN TO BE ALLERGIC TO ANESTHESIA MENTIONED ABOVE SHE CODED DURING INDUCTION OF ANESTHESIA FOR SURGICAL REPAIR OF HER ARM FRACTURE. SOCIAL HISTORY: She is a former smoker. She denies any recent use of alcohol. REVIEW OF SYSTEMS: Otherwise negative. PHYSICAL EXAMINATION: VITAL SIGNS: In the emergency room; blood pressure is 98/59 with heart rate of 63 and temperature is 98.1. HEAD, EYES, EARS, NOSE, AND THROAT: Unremarkable. NECK: Supple with no lymphadenopathy. No goiter. LUNGS: Clear to auscultation and percussion. She does have pain in the ribs on palpation, status post a fall few days ago. EXTREMITIES: Free of cyanosis, clubbing, or edema. There is a chronic fracture of the right humerus as mentioned above. LABORATORY DATA: EKG shows regular sinus rhythm with no acute changes. Chest x-ray shows no acute disease. Her BNP is elevated at 8140. Total CK is 27. Troponins are negative at 0.01. IMPRESSION AND PLAN: The patient was admitted with weakness of unknown etiology, I doubt cerebrovascular accident. She will be treated with diuretics for recurrent congestive heart failure. She will be reevaluated in the morning. Rib series is called because of the pain, post fall. Baljeet King MD
[2017-01-15] MEDS: Sodium Chloride 0.9% 1,000 ML IV SCH (20:26)
[2017-01-16] MEDS: Oxycodone/Acetaminophen 5/325 mg Tab PO PRN (05:31)
--- NOTE | 2017-01-16 11:06 | PN ---
DATE: 01/15/2017 DAILY PROGRESS NOTE SUBJECTIVE: The patient is a 66-year-old female who was admitted with dehydration and weakness. She awoke in the morning, apparently could not move her legs. She get out of bed. She is known to have a history of congestive heart failure, alcoholic bone marrow suppression with pancytopenia, a history of COPD. PHYSICAL EXAMINATION: GENERAL: When seen today, the patient is resting comfortably. LUNGS: Clear anteriorly. HEART: Regular. ABDOMEN: Soft and nontender. ASSESSMENT AND PLAN: The patient had been complaining of pain in her ribs. Ribs series was done and is negative for fracture. At this point, we are considering Transitional Care Unit for physical therapy. The patient is to be evaluated and transferred as a bed becomes available. Baljeet King MD
[2017-01-16] MEDS: Nystatin 100,000 Units/ml Oral Susp 5 ml UD PO SCH ×2 (12:08→15:32)
[2017-01-16 15:56] VITALS: BP 93/46; PULSE 67; RESP 18; TEMP 98; O2SAT 94
--- NOTE | 2017-01-17 10:33 | DS ---
HISTORY OF PRESENT ILLNESS: This is a 66-year-old whom I do not see in the office. She sometimes may come in to see my partner Dr. Baljeet King, but even that is on a limited basis. She has a long history of rather severe alcoholic cardiomyopathy with ejection fraction of below 20%, alcoholic pancytopenia, chronic congestive heart failure, and nonhealing fracture of the right humerus. The patient presented to the emergency room on this admission complaining of extreme weakness and dehydration. She reports that she has not been feeling well for several days prior to coming to the ER. She is not eating, drinking or taking in adequate p.o. fluids. She could not move her legs, was too weak to get out of bed, had fallen several times in the past few days. She went to the emergency room and evaluated. She was found to be dehydrated, clinically dry, and therefore, admitted with multiple medical problems. She is treated with IV fluids, Librium was given to prevent withdrawal symptoms. She continued her Xanax. At home, she reportedly takes 1 mg q.6 hours plus Ambien at bedtime. Apparently, she had stopped all her other cardiac medications and yet seemed to be able to maintain hemodynamic stability and stay out of failure. She is improved clinically, was feeling better, but still complaining of multiple pains and anxiety, is requesting more pain medications for pain as well as anxiolytics. The importance of conservative approach on these medications was explained to the patient once again and she was ready to transfer to Transitional Care Unit for additional physical therapy and conditioning. She requested consultation by Dr. Harris, her orthopedist who knows her from her back symptoms and her chronic nonhealing humerus fracture, which will be done on transfer to TCU. FINAL DISCHARGE DIAGNOSES: 1. Dehydration. 2. Generalized weakness and fatigue. 3. Severe alcoholic cardiomyopathy with ejection fraction less than 20%. 4. Congestive heart failure. 5. Severe chronic obstructive pulmonary disease. 6. Nonhealing fracture of the right humerus. 7. History of lymphoma in 2007. 8. Alcoholic pancytopenia. PLAN: We will follow the patient on TCU. Tripp King MD [facility] # [id number] MTDD
== END 2017-01-16 16:26 | DRG 641 ==
LOC: ED 14:19 → ERH 17:19 → 3RNO 18:24
PROVIDERS: ADMIT Internal Medicine; ATTEND Internal Medicine
DX: E86.0 Dehydration (principal); D61.818 Other pancytopenia; I42.6 Alcoholic cardiomyopathy; I50.9 Heart failure, unspecified; I11.0 Hypertensive heart disease with heart failure; Z85.72 Personal history of non-Hodgkin lymphomas; F10.10 Alcohol abuse, uncomplicated; E11.9 Type 2 diabetes mellitus without complications; J44.9 Chronic obstructive pulmonary disease, unspecified; S42.301G Unspecified fracture of shaft of humerus, right arm, subsequent encounter for fracture with delayed healing; K21.9 Gastro-esophageal reflux disease without esophagitis; F41.9 Anxiety disorder, unspecified; Z87.891 Personal history of nicotine dependence

== ENCOUNTER 2017-01-16 15:51 | Inpatient (IN) | payer OTHER ==
[2017-01-16] MEDS: Oxycodone/Acetaminophen 5/325 mg Tab PO PRN ×2 (17:28→21:15)
[2017-01-16 17:45] VITALS: BMI 17.9
[2017-01-16] MEDS ORDERED: Nystatin 100,000 Units/ml Oral Susp 5 ml UD PO SCH (18:00)
[2017-01-16] MEDS: Nystatin 100,000 Units/ml Oral Susp 5 ml UD PO SCH ×2 (18:31→21:13)
[2017-01-16] MEDS ORDERED: Pneumococcal 23-Valent Vaccine IM ONE (19:22)
[2017-01-16] MEDS ORDERED: Influenza Vaccine 60 mcg/0.5 mL SYR (4YR UP) IM ONE (19:22)
[2017-01-17] MEDS: Nystatin 100,000 Units/ml Oral Susp 5 ml UD PO SCH ×4 (10:34→21:12)
[2017-01-17] MEDS ORDERED: Bisacodyl 5mg EC Tab PO ONE (14:24)
[2017-01-17] MEDS: Oxycodone/Acetaminophen 5/325 mg Tab PO PRN ×2 (15:12→21:11)
--- NOTE | 2017-01-17 22:19 | CON ---
DATE: 01/17/2017 HISTORY: The patient is a 66-year-old woman who has been in the hospital for several days, who was transferred to the TCU for continued rehab. The patient is markedly weak, has multiple complaints, which do not include shortness of breath. She is complaining of weakness and constipation. PAST MEDICAL HISTORY: Notable for an end-stage alcoholic cardiomyopathy. She has been in CHF in the past. PHYSICAL EXAMINATION: VITAL SIGNS: Currently, the patient is hypotensive with a blood pressure of ____ with a heart rate in the 70s. NECK: Negative JVD. LUNGS: No rales noted. HEART: Revealed S1, S2. EXTREMITIES: Without edema. LABORATORY DATA: Laboratories were reviewed. IMPRESSION: 1. Prerenal azotemia. 2. Hypotension. 3. End-stage alcoholic cardiomyopathy. 4. Weakness. 5. Anemia. 6. Constipation. Given these findings, we will give the patient Dulcolax today to help her with her bowel movements. Her bowel movements may be complicated by her narcotic use. If she remains weak, we will discuss possibility of IV inotropic infusion. Michael Schulte MD
[2017-01-18 08:13] LABS: BASO # 0.01 K/mm3 (0.0-2.0); BASO % 0.3 % (0.0-3.0); GRAN # 2.32 (1.4-6.5); GRAN % 78.4 % (50.0-68.0); HEMATOCRIT 31.6 % (36.0-48.0); LYMPH # 0.4 (1.2-3.4); LYMPH % 13.9 % (22.0-35.0); MEAN CELL VOLUME 123.4 fl (80.0-105.0); MEAN CORPUSCULAR HEMOGLOBIN 40.6 pg (25.0-35.0); MEAN CORPUSCULAR HGB CONC 32.9 g/dl (31.0-37.0); MONO # 0.2 (0.1-0.6); MONO % 6.4 % (1.0-6.0); RED CELL DISTRIBUTION WIDTH 15.6 % (11.5-14.5)
[2017-01-18 09:21] LABS: ALB/GLOB RATIO 0.9 (1.1-1.8); ALKALINE PHOSPHATASE 154 U/L (38-126); ALT/SGPT 33 U/L (7-56); AST/SGOT 21 U/L (14-36); BILIRUBIN,TOTAL 0.9 mg/dL (0.2-1.3); BLOOD UREA NITROGEN 11 mg/dL (7-21); CALCIUM 8.3 mg/dL (8.4-10.5); CARBON DIOXIDE 21 mmol/L (21-33); CHLORIDE 115 mmol/L (98-107); GFR AFRICAN-AMERICAN > 60; GLUCOSE,RANDOM 75 mg/dL (70-110); POTASSIUM 4.2 mmol/L (3.6-5.0); SODIUM 143 mmol/L (132-148); TOTAL PROTEIN 5.6 g/dL (5.8-8.3)
--- NOTE | 2017-01-18 09:47 | CON ---
DATE: 01/18/2017 INPATIENT CONSULTATION REASON FOR CONSULTATION: Upper back pain. HISTORY OF PRESENT ILLNESS: Consult is as follows: This is a 66-year-old female with multiple medical problems, who has had a history of numerous falls, who is currently in Transitional Care Unit and had complaints of some pain in the upper portion of the her back. The patient said this has been going on for sometimes. She says today she is not in pain. She denies any numbness or tingling going down the arms. She denies any obvious weakness. She said she has had tests in the past to work this up and they did not find anything. PHYSICAL EXAMINATION: GENERAL: This is a female in no apparent distress. She is awake, alert, and oriented x3. NEUROLOGIC: Exam on the right upper extremity is somewhat limited because of a nonunion humeral fracture, otherwise it is grossly intact in all the extremities. She has no significant areas of palpitation of the thoracic spine. No significant areas of point tenderness to palpation. There is no gross deformity. She has tolerated active range of motion of the left shoulder without any pain. Her reflexes are physiologic and symmetric. She has negative Levon's bilaterally. LABORATORY DATA: She had CAT of the cervical spine, which showed no obvious fractures or dislocations. There are no imaging studies of the thoracic spine available for my review. PLAN: At this point, I recommended pain medications as needed, and we will order x-rays of the thoracic spine for further evaluation. Pedro Harris MD
--- NOTE | 2017-01-18 10:31 | RAD ---
HISTORY: pain COMPARISON: No prior. FINDINGS: BONES: Alignment maintained. No fracture. DISC SPACES: Normal. SOFT TISSUES: Normal. OTHER FINDINGS: There is demineralization IMPRESSION: No acute finding
[2017-01-18] MEDS ORDERED: Magnesium Hydroxide Susp 30 ml UD PO ONE (10:47)
[2017-01-18] MEDS: Nystatin 100,000 Units/ml Oral Susp 5 ml UD PO SCH ×4 (11:02→21:28)
[2017-01-18] MEDS: Oxycodone/Acetaminophen 5/325 mg Tab PO PRN ×2 (13:12→21:25)
--- NOTE | 2017-01-19 08:29 | CP.PCM.PN ---
Subjective - Date & Time of Evaluation Date of Evaluation: 01/19/17 Time of Evaluation: 08:28 - Subjective Subjective: Xrays of thoracic spine reviewed. No obvious fxs or dislocations appreciated. NO acute findings. Alignment within normal limits. Recommend pain meds prn, PT Mobilization as tolerated Objective - Vital Signs/Intake and Output Vital Signs (last 24 hours): Temp Pulse Resp BP Pulse Ox 98.3 F 62 16 94/36 L 100 01/19/17 06:00 01/19/17 06:00 01/19/17 06:00 01/19/17 06:00 01/19/17 06:00 - Medications Medications: Current Medications Alprazolam (Xanax) 0.5 mg PO Q6H PRN; Protocol PRN Reason: Anxiety Last Admin: 01/18/17 08:16 Dose: 0.5 mg Nystatin (Nystatin Oral Susp) 5 ml PO QID BELEM PRN Reason: Protocol Last Admin: 01/18/17 21:28 Dose: 5 ml Oxycodone/Acetaminophen (Percocet 5/325 Mg Tab) 1 tab PO Q4H PRN PRN Reason: Pain, severe (8-10) Stop: 01/19/17 16:44 Last Admin: 01/18/17 21:25 Dose: 1 tab Zolpidem Tartrate (Ambien) 5 mg PO HS BELEM PRN Reason: Protocol Last Admin: 01/18/17 23:56 Dose: 5 mg - Labs Labs: 01/18/17 08:00 01/18/17 08:00
[2017-01-19] MEDS: Nystatin 100,000 Units/ml Oral Susp 5 ml UD PO SCH ×4 (10:33→21:31)
[2017-01-19] MEDS: Oxycodone/Acetaminophen 5/325 mg Tab PO PRN ×2 (14:26→21:30)
[2017-01-20] MEDS: Nystatin 100,000 Units/ml Oral Susp 5 ml UD PO SCH ×4 (09:17→21:16)
[2017-01-20] MEDS: Oxycodone/Acetaminophen 5/325 mg Tab PO PRN ×2 (11:45→20:24)
--- NOTE | 2017-01-20 20:54 | PN ---
DATE: 01/20/2017 SUBJECTIVE: The patient was seen this Sunday late morning in room 303 in the Transitional Care Unit with her lifetime partner, Nickolas at the bedside. She is awake, alert, and clear in her usual energetic spirits, a bit cantankerous at times, but with no physical complaints or pain other than her chronic back pain. PHYSICAL EXAMINATION: HEAD AND NECK: Unremarkable. LUNGS: Clear. HEART: Regular, nontachycardic. EXTREMITIES: Show no edema. IMPRESSION AND PLAN: Deconditioning, dehydration, and weakness. The patient is asking for additional physical therapy and work on the stairs. I will relay that message to her nurse and physical therapist. We will continue other medications as above. She continues to do surprisingly well on minimal cardiac medicines in spite of her poor ejection fraction and alcoholic cardiomyopathy. We will follow closely. Tripp King MD
[2017-01-21] MEDS: Oxycodone/Acetaminophen 5/325 mg Tab PO PRN ×2 (09:35→20:28)
[2017-01-21] MEDS: Nystatin 100,000 Units/ml Oral Susp 5 ml UD PO SCH ×4 (09:36→22:00)
--- NOTE | 2017-01-21 23:28 | PN ---
DATE: 01/21/2017 SUBJECTIVE: The patient was seen this Sunday morning in room 303 at the Transitional Care Unit. She is resting in the bed comfortably with her lifetime partner, Nickolas, at the bedside. She is awake, alert, clear and appropriate. She states she is doing well with physical therapy. She was able to ambulate stairs yesterday and at the gym. PLAN: We will continue physical therapy efforts. I counseled the patient again regarding medications and my concern about her taking Xanax, Zolpidem and oxycodone. Tripp King MD
[2017-01-22] MEDS: Oxycodone/Acetaminophen 5/325 mg Tab PO PRN (07:30)
[2017-01-22] MEDS: Nystatin 100,000 Units/ml Oral Susp 5 ml UD PO SCH ×4 (10:43→22:27)
[2017-01-22 11:03] VITALS: RESP 20
[2017-01-22] MEDS ORDERED: Oxycodone/Acetaminophen 5/325 mg Tab PO STA (20:37)
[2017-01-23] MEDS ORDERED: Alum-Mag Hydrox-Simethicone Susp (30 mL) PO ONE (08:26)
[2017-01-23] MEDS: Nystatin 100,000 Units/ml Oral Susp 5 ml UD PO SCH ×6 (09:52→21:53)
[2017-01-23 11:28] VITALS: O2SAT 95
[2017-01-23 17:34] VITALS: BP 89/53; PULSE 84; TEMP 99.7
[2017-01-23 20:55] LABS: PH,URINE 5.5 (4.7-8.0); URINE BILIRUBIN NEGATIVE (NEGATIVE); URINE BLOOD TRACE-INTACT (NEGATIVE); URINE GLUCOSE (UA) NEGATIVE (NEGATIVE); URINE KETONE TRACE mg/dL (NEGATIVE); URINE LEUKOCYTE ESTERASE SMALL Leu/uL (NEGATIVE); URINE PROTEIN TRACE mg/dL (<30 mg/dL)
[2017-01-23 20:56] LABS: URINE APPEARANCE CLEAR (CLEAR); URINE COLOR YELLOW (YELLOW)
[2017-01-23 21:07] LABS: URINE AMORPHOUS SEDIMENT FEW; URINE BACTERIA MANY (NEG)
[2017-01-24] MEDS: Oxycodone/Acetaminophen 5/325 mg Tab PO PRN ×2 (02:27→06:54)
[2017-01-24] MEDS: Nystatin 100,000 Units/ml Oral Susp 5 ml UD PO SCH ×3 (10:09→14:29)
== END 2017-01-24 14:38 | disposition home health service (06) | DRG 945 ==
LOC: TRCU 15:51 → UNDODISIN 01-19 14:24
PROVIDERS: ADMIT Internal Medicine; ATTEND Internal Medicine
PROC: F07Z9FZ Gait Training/Functional Ambulation Treatment using Assistive, Adaptive, Supportive or Protective Equipment (ICD-10-PCS; principal; 2017-01-18)
PROC: F07L6ZZ Therapeutic Exercise Treatment of Musculoskeletal System - Lower Back / Lower Extremity (ICD-10-PCS; 2017-01-18)
PROC: F08Z4FZ Home Management Treatment using Assistive, Adaptive, Supportive or Protective Equipment (ICD-10-PCS; 2017-01-19)
DX: R53.1 Weakness (principal); I42.6 Alcoholic cardiomyopathy; E86.0 Dehydration; I95.9 Hypotension, unspecified; I50.9 Heart failure, unspecified; K59.00 Constipation, unspecified; D64.9 Anemia, unspecified; M54.6 Pain in thoracic spine

== ENCOUNTER 2017-02-04 09:25 | Emergency (ER) | payer MEDICARE, OTHER ==
[2017-02-04 09:28] VITALS: PULSE 150; BMI 20.1
--- NOTE | 2017-02-04 09:45 | ED PDOC ---
Arrival/HPI - General Chief Complaint: GI Problem Time Seen by Provider: 02/04/17 09:33 Historian: Patient - History of Present Illness Narrative History of Present Illness (Text): 02/04/17 09:38 66 year old female, pmh including including dm/pneumonia/hypokalemia/copd/ syncope/hepatitis/CHF/alcoholic cardiomyopathy/non-healing rt. humerus fracture , allergic to dephenhydramine, complaining of vomiting/diarrhea and fatigue x 2 days after taking augmentin. Pt. stated that she had been having acute on set of vomiting and diarrhea about 2 days ago, no abdominal pain, admits feeling fatigue from the diarrhea, no night sweat, no recent traveling, no sick contact, seen in the Emergency room in 12/2016 for similiar complaints, no fever or chills, no palpitation or chest pain, no shortness of breath on exertion, no other medical or psychological complaints. Past Medical History - Provider Review Nursing Documentation Reviewed: Yes - Past History Past History: Non-Contributing - Infectious Disease Hx of Infectious Diseases: None - Tetanus Immunization Tetanus Immunization: Up to Date, Unknown - Cardiac Hx Cardiac Disorders: Yes (mi) Other/Comment: Cardiac Arrest - Pulmonary Hx Chronic Obstructive Pulmonary Disease (COPD): Yes - Neurological Hx Neurological Disorder: Yes (syncope ams) Hx Dizziness: Yes - HEENT Hx HEENT Disorder: Yes (eyeglasses) Other/Comment: developes ulcers left eye on eye drops - Renal Hx Renal Disorder: No - Endocrine/Metabolic Hx Diabetes Mellitus Type 1: Yes - Hematological/Oncological Hx Blood Disorders: Yes (thrombocytopenia) Hx Anemia: Yes (blood transfusion) Hx Cancer: Yes (follicular lymphoma 2007) Hx Chemotherapy: Yes Other/Comment: gastrointestinal ca 2007 - Integumentary Hx Dermatological Disorder: No (LEFT UPPER ARM IN AND OUT OF PORT.) Other/Comment: DECUBITI - Musculoskeletal/Rheumatological Hx Falls: Yes - Gastrointestinal Hx Gastrointestinal Disorders: Yes (weight loss appetite changes) - Genitourinary/Gynecological Hx Reproductive Disorders: No - Psychiatric Hx Psychophysiologic Disorder: Yes Hx Anxiety: Yes Hx Bipolar Disorder: Yes Hx Depression: Yes Hx Substance Use: No Other/Comment: alcohol abuse - Past Surgical History Past Surgical History: Non-Contributing - Surgical History Hx Cardiac Catheterization: Yes Hx Coronary Stent: Yes Other/Comment: pac joe in and out, c section left humerus sx, r arm deformity/ weakness - Anesthesia Hx Anesthesia: Yes Hx Anesthesia Reactions: Yes (SEE ALLERGIES) Hx Malignant Hyperthermia: No - Suicidal Assessment Feels Threatened In Home Enviroment: No Family/Social History - Physician Review Nursing Documentation Reviewed: Yes Family/Social History: Unknown Family HX Smoking Status: Former Smoker Hx Alcohol Use: No Amount per day: 3 Hx Substance Use: No Hx Substance Use Treatment: No Allergies/Home Meds Allergies/Adverse Reactions: Allergies diphenhydramine HCl [From Benadryl] Allergy (Verified 01/13/17 20:25) SHORTNESS OF BREATH IV AND BLOOD PRESSURE LOW anesthesia Allergy (Intermediate, Uncoded 01/13/17 20:25) RASH anesthetic agents Allergy (Mild, Uncoded 02/04/17 09:33) ANAPHYLAXIS Pt states she went into Cardiac arrest from anesthetics Review of Systems - Review of Systems Constitutional: Fatigue. absent: Fevers Eyes: absent: Vision Changes ENT: absent: Hearing Changes Respiratory: absent: SOB, Cough Cardiovascular: absent: Chest Pain Gastrointestinal: Diarrhea, Vomiting. absent: Abdominal Pain, Nausea Musculoskeletal: absent: Arthralgias, Back Pain Skin: absent: Rash, Pruritis Neurological: absent: Headache Psychiatric: absent: Anxiety, Depression, Suicidal Ideation Physical Exam Vital Signs Temp Pulse Resp BP Pulse Ox 02/04/17 15:17 63 17 93/43 L 100 02/04/17 13:42 79 17 104/52 L 100 02/04/17 10:25 97.6 F 61 18 101/52 L 97 - Systems Exam Head: Present: Atraumatic, Normocephalic Pupils: Present: PERRL Extroacular Muscles: Present: EOMI Conjunctiva: Present: Normal Mouth: Present: Moist Mucous Membranes Neck: Present: Normal Range of Motion Respiratory/Chest: Present: Clear to Auscultation, Good Air Exchange. No: Respiratory Distress, Accessory Muscle Use Cardiovascular: Present: Regular Rate and Rhythm, Normal S1, S2, Other (no pedal edema). No: Murmurs Abdomen: Present: Normal Bowel Sounds. No: Tenderness, Distention, Peritoneal Signs, Rebound, Guarding Back: Present: Normal Inspection Upper Extremity: Present: Normal Inspection, Other (Rt. humeral region: as per patient, chronic non-healing rt. humerus fracture. ). No: Cyanosis, Edema Lower Extremity: Present: Normal Inspection. No: Edema Neurological: Present: GCS=15, Speech Normal, Motor Func Grossly Intact, Memory Normal Skin: Present: Warm, Dry, Normal Color. No: Rashes Psychiatric: Present: Alert, Oriented x 3, Normal Insight, Normal Concentration Medical Decision Making ED Course and Treatment: 02/04/17 09:54 -labs/ua/rapid flu/stool culture/c.diff -Abdominal xray -IV/zofran/pepcid -Observe and reassess 02/04/17 13:26 -Labs are non-significant compared with previous labs, chronic CHF -Lactic acid within normal limit. -Abdominal xray show no obstruction. -Abdominal examination with no tenderness or guarding. -BP is remain in her usual range, tolerating po solid and fluid, stated that she feels better now, offered admission for observation but refused. -Case discussed with Dr. Maurice and reviewed xray/labs together, agreed that the patient can be discharged ome. -Pt. seen by Dr. Tripp Mireles, discussed about the labs/radiology result, agreed she can be discharged home. -Pt. will like another dose of zofran and pedialyte as she doesn't wanna drink water, chronic CHF will give po fluid as tolerated for her condition with EF 20% 02/04/17 15:25 -Urinalysis show UTI and yeast noted, diflucan 150mg po ordered, urine culture sent. Pt. likes the po pedialyte, will give her pedialyte -Pt. has no diarrhea in the Emergency room, no abdominal pain. Discussed with Dr. Maurice, no further advanced testing for labs/radiology study indicated at this time and can be discharged home. Pt. wants to go home and doesn't wanna wait for the stool culture, stool sample cup given to her. -I offered to be observed over night again, still declined to be observed over night as she saying that she is more comfortable at home which she had multiple admissions to this facility with limited help, wants to go home and will return if she feels worsened, will discharge home. -Discharge home with macrobid, pepcid, zofran, pedialyte, bed rest, give the stool sample to your own pmd when you have it, follow up with your own pmd and GI within 2 days, return to the Emergency room for any new or worsening signs or symptoms. - Lab Interpretations Lab Results: 02/04/17 10:50 02/04/17 11:49 Lab Results 02/04/17 14:25: Urine Color Yellow, Urine Appearance Clear, Urine pH 6.0, Ur Specific [place] 1.025, Urine Protein 30 H, Urine Glucose (UA) Negative, Urine Ketones 15 H, Urine Blood Negative, Urine Nitrate Negative, Urine Bilirubin Negative, Urine Urobilinogen 0.2, Ur Leukocyte Esterase Trace H, Urine RBC 1 - 3 , Urine WBC 5 - 10, Ur Epithelial Cells 6 - 8, Urine Other Uyeast 02/04/17 11:49: Sodium 141, Chloride 112 H, Potassium 3.8, Carbon Dioxide 18 L, Anion Gap 15, BUN 18, Creatinine 1.1, Est GFR ( Amer) 60, Est GFR (Non- Af Amer) 49, Random Glucose 60 L, Calcium 8.1 L, Magnesium 1.6 L, Total Bilirubin 0.6, AST 30, ALT 26, Alkaline Phosphatase 128 H, NT-Pro-B Natriuret Pep 8460 H, Total Protein 5.8, Albumin 2.7 L, Globulin 3.1, Albumin/Globulin Ratio 0.9 L 02/04/17 10:50: WBC 5.0 D, RBC 2.58 L, Hgb 10.3 L, Hct 31.6 L, MCV 122.5 H, MCH 39.9 H, MCHC 32.6, RDW 14.3, Plt Count 211, MPV 9.6, Gran % 85.1 H, Lymph % (Auto) 9.3 L, [place] % (Auto) 5.2, Eos % (Auto) 0.2 L, Baso % (Auto) 0.2, Gran # 4.29, Lymph # 0.5 L, [place] # 0.3, Eos # 0.0, Baso # 0.01 02/04/17 10:50: pO2 54, VBG pH 7.27 L, VBG pCO2 39.0 L, VBG HCO3 17.9 L, VBG Total CO2 19.1 L, VBG O2 Sat (Calc) 92.5 H, VBG Base Excess -8.4 L, VBG Potassium 4.0, Sodium 143.0, Chloride 113.0 H, Glucose 60 L, Lactate 1.1, FiO2 21.0, Venous Blood Potassium 4.0 02/04/17 10:50: Influenza Typ A,B (EIA) Negative for flu a/b - RAD Interpretation Radiology Orders: 02/04/17 09:48 ABD 2 VIEWS (FLAT/UP OR DECUB) [RAD] Stat - Medication Orders Current Medication Orders: Discontinued Medications Famotidine (Pepcid) 20 mg IVP STAT STA Stop: 02/04/17 09:49 Last Admin: 02/04/17 10:50 Dose: 20 mg IVP Administration Document 02/04/17 10:50 MR (Rec: 02/04/17 10:50 MR [id number]) Charges for Administration # of IVP Administrations 1 Fluconazole (Diflucan) 150 mg PO DAILY ONE PRN Reason: Protocol Stop: 02/04/17 15:31 Ondansetron HCl (Zofran Inj) 4 mg IVP STAT STA Stop: 02/04/17 09:49 Last Admin: 02/04/17 10:50 Dose: 4 mg IVP Administration Document 02/04/17 10:50 MR (Rec: 02/04/17 10:50 MR [id number]) Charges for Administration # of IVP Administrations 1 Ondansetron HCl (Zofran Inj) 4 mg IVP STAT STA Stop: 02/04/17 13:24 Last Admin: 02/04/17 13:34 Dose: 4 mg IVP Administration Document 02/04/17 13:34 MR (Rec: 02/04/17 13:34 MR [id number]) Charges for Administration # of IVP Administrations 1 Oral Electrolytes (Pedialyte) 300 ml PO ONCE STA Stop: 02/04/17 13:24 Last Admin: 02/04/17 13:34 Dose: 300 ml - PA / EXERCISE MANAGER / Resident Statement MD/DO has reviewed & agrees with the documentation as recorded. Disposition/Present on Arrival - Present on Arrival Any Indicators Present on Arrival: No History of DVT/PE: No History of Uncontrolled Diabetes: No Urinary Catheter: No History of Decub. Ulcer: No History Surgical Site Infection Following: None - Disposition Have Diagnosis and Disposition been Completed?: Yes Diagnosis: UTI (urinary tract infection), Yeast infection, Diarrhea Disposition: HOME/ ROUTINE Disposition Time: 15:28 Patient Plan: Discharge Patient Problems: Current Active Problems Problem Status Onset Diarrhea Acute UTI (urinary tract infection) Acute Yeast infection Acute Condition: GOOD Additional Instructions: -Discharge home with macrobid, pepcid, zofran, pedialyte, bed rest, give the stool sample to your own pmd when you have it, follow up with your own pmd and GI within 2 days, return to the Emergency room for any new or worsening signs or symptoms. Prescriptions: Electrolytes/Dextrose [Pedialyte Solution] 440 ml PO DAILY PRN #2 bot PRN Reason: Other Famotidine [Pepcid] 20 mg PO BID #20 tab Nitrofurantoin Macrocrystals [Macrobid] 100 mg PO BID #14 cap Ondansetron [Zofran] 4 mg PO Q8H PRN #12 tab PRN Reason: Nausea/Vomiting Referrals: Baljeet King MD [Primary Care Provider] - Follow up with primary Judah Kendall MD [Staff Provider] - Follow up with primary Forms: [employer] ([place] Citizen)
[2017-02-04 10:27] VITALS: TEMP 97.6
[2017-02-04 10:56] LABS: VENOUS BLOOD GAS BASE EXCESS -8.4 mmol/L (0.0-2.0); VENOUS BLOOD PH 7.27 (7.32-7.43)
[2017-02-04 11:10] LABS: BASO # 0.01 K/mm3 (0.0-2.0); BASO % 0.2 % (0.0-3.0); EOS % 0.2 % (1.5-5.0); GRAN # 4.29 (1.4-6.5); GRAN % 85.1 % (50.0-68.0); HEMATOCRIT 31.6 % (36.0-48.0); LYMPH # 0.5 (1.2-3.4); LYMPH % 9.3 % (22.0-35.0); MEAN CELL VOLUME 122.5 fl (80.0-105.0); MEAN CORPUSCULAR HEMOGLOBIN 39.9 pg (25.0-35.0); MEAN CORPUSCULAR HGB CONC 32.6 g/dl (31.0-37.0); MEAN PLATELET VOLUME 9.6 fl (7.0-11.0); MONO # 0.3 (0.1-0.6); MONO % 5.2 % (1.0-6.0); RED CELL DISTRIBUTION WIDTH 14.3 % (11.5-14.5)
[2017-02-04 12:17] LABS: ALB/GLOB RATIO 0.9 (1.1-1.8); BILIRUBIN,TOTAL 0.6 mg/dL (0.2-1.3); CALCIUM 8.1 mg/dL (8.4-10.5); MAGNESIUM 1.6 mg/dL (1.7-2.2); POTASSIUM 3.8 mmol/L (3.6-5.0); TOTAL PROTEIN 5.8 g/dL (5.8-8.3)
--- NOTE | 2017-02-04 13:19 | RAD ---
HISTORY: vomiting/diarrhea COMPARISON: No prior. FINDINGS: BOWEL: Normal. No obstruction. No free air. BONES: Normal. OTHER FINDINGS: None. IMPRESSION: No active disease.
[2017-02-04] MEDS ORDERED: Pedialyte 1000 ml PO STA (13:23)
[2017-02-04 13:44] VITALS: RESP 17; O2SAT 100
[2017-02-04 14:53] LABS: URINE BILIRUBIN NEGATIVE (NEGATIVE); URINE BLOOD NEGATIVE (NEGATIVE); URINE GLUCOSE (UA) NEGATIVE (NEGATIVE); URINE KETONE 15 mg/dL (NEGATIVE); URINE LEUKOCYTE ESTERASE TRACE Leu/uL (NEGATIVE); URINE PROTEIN 30 mg/dL (<30 mg/dL); URINE UROBILINOGEN 0.2 E.U./dL (<1 E.U./dL)
[2017-02-04 14:55] LABS: URINE APPEARANCE CLEAR (CLEAR); URINE COLOR YELLOW (YELLOW)
[2017-02-04 15:18] VITALS: BP 93/43; PULSE 63
== END 2017-02-04 16:29 | disposition home or self-care (01) ==
LOC: ED 09:25
DX: N39.0 Urinary tract infection, site not specified (principal); B37.9 Candidiasis, unspecified; R19.7 Diarrhea, unspecified
CPT/HCPCS: 74020; 80053; 81001; 82803; 83735; 83880; 85025; 87086; 87804; 96374; 96375; 96376; 99285; J2405

== ENCOUNTER 2017-05-03 13:50 | Inpatient (IN) | payer MEDICARE, OTHER ==
[2017-05-03 13:51] VITALS: PULSE 150
[2017-05-03] MEDS ORDERED: Sodium Chloride 0.9% 1,000 ML IV STA ×3 (14:46→16:56)
--- NOTE | 2017-05-03 14:49 | ED PDOC ---
Arrival/HPI - General Chief Complaint: Back Pain Time Seen by Provider: 05/03/17 14:15 - History of Present Illness Narrative History of Present Illness (Text): 66 y/o F c PMHx diabetes, pneumonia, hypokalemia, COPD, syncope, hepatitis, CHF , alcoholic cardiomyopathy/nonhealing right hmuerus fracture p/w general weakness and lower back pain since yesterday. Patient recently with UTI, finished antibiotics. Did not notice fever at home. Denies vomiting, dyspnea, abdominal pain. Full ROS unobtainable due to patient's clinical condition. Past Medical History - Past History Past History: Non-Contributing - Infectious Disease Hx of Infectious Diseases: None - Tetanus Immunization Tetanus Immunization: Up to Date, Unknown - Cardiac Hx Pacemaker: No - Pulmonary Hx Chronic Obstructive Pulmonary Disease (COPD): Yes Hx Pneumonia: Yes - Neurological Hx Neurological Disorder: Yes (syncope ams) Hx Dizziness: Yes - HEENT Hx HEENT Disorder: Yes (eyeglasses) Other/Comment: developes ulcers left eye on eye drops - Renal Hx Renal Disorder: No - Endocrine/Metabolic Hx Diabetes Mellitus Type 2: Yes - Hematological/Oncological Hx Cancer: Yes ([place]) - Integumentary Hx Dermatological Disorder: No (LEFT UPPER ARM IN AND OUT OF PORT.) - Musculoskeletal/Rheumatological Hx Back Pain: Yes Hx Falls: Yes - Gastrointestinal Hx Gastrointestinal Disorders: Yes (weight loss appetite changes) - Genitourinary/Gynecological Hx Urinary Tract Infection: Yes Other/Comment: + urinary catheter - Psychiatric Hx Psychophysiologic Disorder: Yes Hx Anxiety: Yes Hx Bipolar Disorder: Yes Hx Depression: Yes Hx Substance Use: No Other/Comment: alcohol abuse - Past Surgical History Past Surgical History: Non-Contributing - Surgical History Hx Mastectomy: No - Anesthesia Hx Anesthesia: Yes Hx Anesthesia Reactions: Yes (SEE ALLERGIES) Hx Malignant Hyperthermia: No - Suicidal Assessment Feels Threatened In Home Enviroment: No Family/Social History Family/Social History: No Known Family HX Smoking Status: Former Smoker Hx Alcohol Use: Yes Amount per day: 3 Hx Substance Use: No Hx Substance Use Treatment: No Allergies/Home Meds Allergies/Adverse Reactions: Allergies diphenhydramine HCl [From Benadryl] Allergy (Verified 01/13/17 20:25) SHORTNESS OF BREATH IV AND BLOOD PRESSURE LOW aspirin Adverse Reaction (Verified 02/11/17 11:12) SHORTNESS OF BREATH anesthesia Allergy (Intermediate, Uncoded 01/13/17 20:25) RASH anesthetic agents Allergy (Mild, Uncoded 02/04/17 09:33) ANAPHYLAXIS Pt states she went into Cardiac arrest from anesthetics Review of Systems - Review of Systems Systems not reviewed;Unavailable: Acuity of Condition Cardiovascular: absent: Chest Pain Gastrointestinal: absent: Vomiting Physical Exam - Physical Exam Narrative Physical Exam (Text): Gen: Elderly female, appears weak Head: Atraumatic Eyes: No scleral icterus ENT: Dry MM Neck: Supple Chest: No tenderness CV: Regular rate Lungs: CTA b/l Abd: Soft : Cota in place, urine appears concentrated Extremities: No swelling Skin: No rash Neuro: Alert, no focal deficit Vital Signs Temp Pulse Resp BP Pulse Ox 05/03/17 14:00 100.2 F H 96 H 18 113/62 100 Medical Decision Making ED Course and Treatment: 05/03/17 15:45 CXR IMPRESSION: No active disease. EKG Sinus rhythm, 100 bpm, LBBB, no concordant ST elevations Labs reveal significant leukocytosis, UTI, hyperkalemia, acidosis. Started on broad spectrum antibiotics. NS at 50cc/hr as patient is with EF 14%. ICU consulted. Dr. King accepts patient to his service. - Lab Interpretations Lab Results: 05/03/17 14:50 05/03/17 14:50 Lab Results 05/03/17 15:27: Urine Color Yellow, Urine Appearance Clear, Urine pH 6.0, Ur Specific [place] 1.025, Urine Protein Negative, Urine Glucose (UA) Negative, Urine Ketones 15 H, Urine Blood Negative, Urine Nitrate Positive H, Urine Bilirubin Negative, Urine Urobilinogen 0.2, Ur Leukocyte Esterase Small H, Urine RBC Negative, Urine WBC 5 - 10, Ur Epithelial Cells 1 - 3, Urine Bacteria Many 05/03/17 14:50: PT 14.2 H, INR 1.24 H, APTT 50.4 H 05/03/17 14:50: Sodium 149 H, Chloride 118 H, Potassium 6.2 H* D, Carbon Dioxide 14 L, Anion Gap 24 H, BUN 21, Creatinine 0.8, Est GFR ( Amer) > 60, Est GFR (Non-Af Amer) > 60, Random Glucose 56 L, Calcium 11.3 H, Total Bilirubin 0.6, AST 26, ALT 20, Alkaline Phosphatase 168 H D, Total Creatine Kinase < 20 L, Total Protein 8.3, Albumin 4.2, Globulin 4.1, Albumin/Globulin Ratio 1.0 L 05/03/17 14:50: WBC 20.3 H D, RBC 3.03 L, Hgb 10.3 L, Hct 32.6 L, MCV 107.6 H D , MCH 34.0, MCHC 31.6, RDW 18.3 H, Plt Count 420, MPV 9.0, Gran % 93.7 H, Lymph % (Auto) 2.7 L, [place] % (Auto) 3.3, Eos % (Auto) 0.2 L, Baso % (Auto) 0.1, Gran # 19.04 H, Lymph # (Auto) 0.6 L, [place] # (Auto) 0.7 H, Eos # (Auto) 0.0, Baso # ( Auto) 0.02, Neutrophils % (Manual) 94 H, Band Neutrophils % 2, Lymphocytes % ( Manual) 2 L, Monocytes % (Manual) 1, Eosinophils % (Manual) 1, Platelet Evaluation High, Anisocytosis (manual) 1+, Macrocytosis (manual) 1+ 05/03/17 14:50: pO2 29 L, VBG pH 7.15 L*, VBG pCO2 41.0, VBG HCO3 14.3 L, VBG Total CO2 15.6 L, VBG O2 Sat (Calc) 57.6, VBG Base Excess -14.0 L, VBG Potassium 6.5 H*, Sodium 144.0, Chloride 119.0 H, Glucose 57 L, Lactate 0.9, FiO2 21.0, Venous Blood Potassium 6.5 H* - RAD Interpretation Radiology Orders: 05/03/17 14:46 CHEST PORTABLE [RAD] Stat - Medication Orders Current Medication Orders: Sodium Chloride (Sodium Chloride 0.9%) 1,000 mls @ 50 mls/hr IV .Q20H STA Stop: 05/04/17 10:49 Last Admin: 05/03/17 15:16 Dose: 50 mls/hr eMAR Start Stop Document 05/03/17 15:16 GMD (Rec: 05/03/17 15:17 GMD [id number]) Intravenous Solution Start Date 05/03/17 Start Time 15:17 Vancomycin HCl (Vancomycin 1gm) 1 gm in 250 mls @ 167 mls/hr IVPB STAT STA PRN Reason: Protocol Stop: 05/03/17 17:00 Discontinued Medications Acetaminophen (Tylenol 325mg Tab) 650 mg PO STAT STA Stop: 05/03/17 16:48 Albuterol Sulfate (Albuterol 0.083% Inhal [place] (2.5 Mg/3 Ml) Ud) 2.5 mg INH STAT STA Stop: 05/03/17 15:41 Dextrose (Dextrose 50% Inj) 50 ml IVP STAT STA Stop: 05/03/17 15:41 Last Admin: 05/03/17 16:39 Dose: 50 ml IVP Administration Document 05/03/17 16:39 GMD (Rec: 05/03/17 16:39 GMD [id number]) Charges for Administration # of IVP Administrations 1 Cefepime HCl (Maxipime 1gm) 1 gm in 100 mls @ 100 mls/hr IVPB STAT STA PRN Reason: Protocol Stop: 05/03/17 16:30 Last Admin: 05/03/17 15:45 Dose: 100 mls/hr eMAR Start Stop Document 05/03/17 15:45 GMD (Rec: 05/03/17 15:45 GMD [id number]) Intravenous Solution Start Date 05/03/17 Start Time 15:45 End Date 05/03/17 End time 16:45 Total Infusion Time 60 Insulin Human Regular (Humulin R) 5 units IVP STAT STA Stop: 05/03/17 15:41 Sodium Bicarbonate (Sodium Bicarbonate 8.4% (50 Meq) Syringe) 50 meq IVP ONCE ONE Stop: 05/03/17 15:41 Disposition/Present on Arrival - Present on Arrival Any Indicators Present on Arrival: Yes History of DVT/PE: No History of Uncontrolled Diabetes: Yes Urinary Catheter: Yes History of Decub. Ulcer: No History Surgical Site Infection Following: None - Disposition Have Diagnosis and Disposition been Completed?: Yes Diagnosis: UTI (urinary tract infection), Sepsis, Acidosis, Hyperkalemia Disposition: HOSPITALIZED Disposition Time: 16:03 Patient Plan: Admission, ICU Condition: CRITICAL Discharge Instructions (ExitCare): Sepsis (ED) Referrals: Baljeet King MD [Primary Care Provider] - Follow up with primary Forms: [employer] (Japanese)
--- NOTE | 2017-05-03 15:13 | RAD ---
HISTORY: general weakness COMPARISON: 02/27/2017 FINDINGS: LUNGS: Examination limited due to steep oblique positioning. No infiltrate. PLEURA: No significant pleural effusion identified, no pneumothorax apparent. CARDIOVASCULAR: Normal heart size. Left central venous infusion port. Previously identified endotracheal tube and nasogastric tube have been removed. OSSEOUS STRUCTURES: No significant abnormalities. VISUALIZED UPPER ABDOMEN: Normal. OTHER FINDINGS: None. IMPRESSION: No active disease.
[2017-05-03 15:19] LABS: BASO # 0.02 K/mm3 (0.0-2.0); BASO % 0.1 % (0.0-3.0); EOS % 0.2 % (1.5-5.0); GRAN # 19.04 (1.4-6.5); GRAN % 93.7 % (50.0-68.0); HEMOGLOBIN 10.3 g/dL (12.0-16.0); LYMPH # 0.6 (1.2-3.4); LYMPH % 2.7 % (22.0-35.0); MEAN CELL VOLUME 107.6 fl (80.0-105.0); MEAN CORPUSCULAR HGB CONC 31.6 g/dl (31.0-37.0); MONO # 0.7 (0.1-0.6); MONO % 3.3 % (1.0-6.0); PLATELET COUNT 420 10^3/uL (120.0-450.0); RBC 3.03 10^6/uL (3.5-6.1); RED CELL DISTRIBUTION WIDTH 18.3 % (11.5-14.5); WHITE BLOOD COUNT 20.3 10^3/ul (4.5-11.0)
[2017-05-03 15:21] LABS: VENOUS BLOOD GAS PO2 29 mm/Hg (30-55)
[2017-05-03 15:25] LABS: VENOUS BLOOD PH 7.15 (7.32-7.43)
[2017-05-03 15:30] LABS: INR 1.24 (0.93-1.08); PARTIAL THROMBOPLASTIN TIME 50.4 Seconds (25.1-36.5); PROTHROMBIN TIME 14.2 SECONDS (9.4-12.5)
[2017-05-03] MEDS ORDERED: Cefepime 1gm in NS 100ml 1 GM/100 ML BAG IVPB STA (15:31)
[2017-05-03] MEDS ORDERED: Vancomycin 1gm in NS 250ml 1 GM/250 ML BAG IVPB STA (15:31)
[2017-05-03 15:35] LABS: ALBUMIN 4.2 g/dL (3.0-4.8); ALT/SGPT 20 U/L (7-56); AST/SGOT 26 U/L (14-36); BLOOD UREA NITROGEN 21 mg/dL (7-21); CALCIUM 11.3 mg/dL (8.4-10.5); GFR AFRICAN-AMERICAN > 60; GFR NON-AFRICAN AMERICAN > 60
[2017-05-03] MEDS ORDERED: Insulin Regular 1 UNITS/0.01 ML ML IVP STA (15:40)
[2017-05-03] MEDS ORDERED: Dextrose 50% SYRINGE Inj (50 ml) IVP STA ×2 (15:40→23:24)
[2017-05-03] MEDS ORDERED: Albuterol 0.083% Inhal Sol (2.5 mg/3 mL) UD INH STA (15:40)
[2017-05-03] MEDS ORDERED: Sodium Bicarbonate (8.4%) 50 Meq Syringe IVP ONE (15:40)
[2017-05-03 15:44] LABS: URINE BILIRUBIN NEGATIVE (NEGATIVE); URINE BLOOD NEGATIVE (NEGATIVE); URINE GLUCOSE (UA) NEGATIVE (NEGATIVE); URINE LEUKOCYTE ESTERASE SMALL Leu/uL (NEGATIVE); URINE PROTEIN NEGATIVE mg/dL (<30 mg/dL); URINE UROBILINOGEN 0.2 E.U./dL (<1 E.U./dL)
[2017-05-03 15:45] LABS: URINE APPEARANCE CLEAR (CLEAR); URINE COLOR YELLOW (YELLOW)
[2017-05-03 15:46] LABS: BAND 2 % (0-2); EOSINOPHIL 1 % (0.0-3.0); LYMPHOCYTE 2 % (22.0-35.0); MONOCYTE 1 % (1.0-6.0); NEUTROPHIL 94 % (50.0-70.0)
[2017-05-03 15:48] LABS: ANISOCYTOSIS 1+; PLATELET ESTIMATE HIGH (NORMAL)
[2017-05-03 15:57] LABS: URINE RBC NEGATIVE /hpf (0-2)
[2017-05-03 15:58] LABS: URINE BACTERIA MANY (NEG)
--- NOTE | 2017-05-03 16:19 | CP.PCM.CON ---
<Tariq Wood - Last Filed: 05/03/17 16:15> History of Present Illness - History of Present Illness History of Present Illness: 66 y/o F with PMH of COPD, CHF with EF of 15%, chronic alcohol abuse, DM, right humerus fracture, hepatitis, hodgkins lymphoma, ITP, and depression presents to the ED for increasing lethargy. Patient accompanied by her family member. She states she has been lethargic for the past 2 days. Patient states she has been taking her medications at home. Patient also admits to continually smoking. Patient denies chest pain, shortness of breath, nausea, vomiting, diarrhea, fever, chills, dysuria. PMH: COPD, CHF with EF of 15%, chronic alcohol abuse, DM, right humerus fracture , hodgkins lymphoma, ITP, hepatitis, and depression Surgical Hx: Left arm port-a-cath Family hx : Noncontributory Social hx: Chronic alcohol and tobacco use. No illicit drug use Medications: Reviewed, as per MAR Allergies: Diphenhydramine, Anesthesia, ASA Review of Systems - Review of Systems Review of Systems: 12 point ROS as per HPI, otherwise negative. Past Patient History - Infectious Disease Hx of Infectious Diseases: None - Tetanus Immunizations Tetanus Immunization: Up to Date, Unknown - Past Medical History & Family History Past Medical History?: Yes - Past Social History Smoking Status: Former Smoker - CARDIAC Hx Pacemaker: No - PULMONARY Hx Chronic Obstructive Pulmonary Disease (COPD): Yes Hx Pneumonia: Yes - NEUROLOGICAL Hx Neurological Disorder: Yes (syncope ams) Hx Dizziness: Yes - HEENT Hx HEENT Problems: Yes (eyeglasses) Other/Comment: developes ulcers left eye on eye drops - RENAL Hx Chronic Kidney Disease: No - ENDOCRINE/METABOLIC Hx Diabetes Mellitus Type 2: Yes - HEMATOLOGICAL/ONCOLOGICAL Hx Cancer: Yes ([place]) - INTEGUMENTARY Hx Dermatological Problems: No (LEFT UPPER ARM IN AND OUT OF PORT.) - MUSCULOSKELETAL/RHEUMATOLOGICAL Hx Back Pain: Yes Hx Falls: Yes - GASTROINTESTINAL Hx Gastrointestinal Disorders: Yes (weight loss appetite changes) - GENITOURINARY/GYNECOLOGICAL Hx Urinary Tract Infection: Yes Other/Comment: + urinary catheter - PSYCHIATRIC Hx Psychophysiologic Disorder: Yes Hx Anxiety: Yes Hx Bipolar Disorder: Yes Hx Depression: Yes Hx Substance Use: No Other/Comment: alcohol abuse - SURGICAL HISTORY Hx Mastectomy: No - ANESTHESIA Hx Anesthesia: Yes Hx Anesthesia Reactions: Yes (SEE ALLERGIES) Hx Malignant Hyperthermia: No Meds Allergies/Adverse Reactions: Allergies Allergy/AdvReac Type Severity Reaction Status Date / Time diphenhydramine HCl Allergy SHORTNESS Verified 01/13/17 20:25 [From Benadryl] OF BREATH aspirin AdvReac SHORTNESS Verified 02/11/17 11:12 OF BREATH anesthesia Allergy Intermediate RASH Uncoded 01/13/17 20:25 anesthetic agents Allergy Mild ANAPHYLAXIS Uncoded 02/04/17 09:33 - Medications Medications: Current Medications Sodium Chloride (Sodium Chloride 0.9%) 1,000 mls @ 50 mls/hr IV .Q20H STA Stop: 05/04/17 10:49 Last Admin: 05/03/17 15:16 Dose: 50 mls/hr Cefepime HCl (Maxipime 1gm) 1 gm in 100 mls @ 100 mls/hr IVPB STAT STA PRN Reason: Protocol Stop: 05/03/17 16:30 Last Admin: 05/03/17 15:45 Dose: 100 mls/hr Vancomycin HCl (Vancomycin 1gm) 1 gm in 250 mls @ 167 mls/hr IVPB STAT STA PRN Reason: Protocol Stop: 05/03/17 17:00 Physical Exam - Constitutional Appears: Non-toxic, No Acute Distress Additional comments: Lethargic - Head Exam Head Exam: ATRAUMATIC, NORMAL INSPECTION - ENT Exam ENT Exam: Mucous Membranes Dry - Respiratory Exam Respiratory Exam: Decreased Breath Sounds, NORMAL BREATHING PATTERN. absent: Rales, Rhonchi, Wheezes - Cardiovascular Exam Cardiovascular Exam: RRR, +S1, +S2 - GI/Abdominal Exam GI & Abdominal Exam: Normal Bowel Sounds, Soft. absent: Tenderness - Extremities Exam Extremities exam: Positive for: normal inspection. Negative for: calf tenderness, pedal edema - Neurological Exam Neurological exam: Alert, Oriented x3 - Psychiatric Exam Psychiatric exam: Normal Affect, Normal Mood - Skin Skin Exam: Intact, Normal Color, Warm Results - Vital Signs Recent Vital Signs: Last Vital Signs Temp 100.2 F H 05/03/17 14:00 Pulse 96 H 05/03/17 14:00 Resp 18 05/03/17 14:00 BP 113/62 05/03/17 14:00 Pulse Ox 100 05/03/17 14:00 - Labs Result Diagrams: 05/03/17 14:50 05/03/17 14:50 Labs: Laboratory Results - last 24 hr 05/03/17 05/03/17 05/03/17 14:50 14:50 14:50 WBC 20.3 H D RBC 3.03 L Hgb 10.3 L Hct 32.6 L MCV 107.6 H D MCH 34.0 MCHC 31.6 RDW 18.3 H Plt Count 420 MPV 9.0 Gran % 93.7 H Lymph % (Auto) 2.7 L [place] % (Auto) 3.3 Eos % (Auto) 0.2 L Baso % (Auto) 0.1 Gran # 19.04 H Lymph # (Auto) 0.6 L [place] # (Auto) 0.7 H Eos # (Auto) 0.0 Baso # (Auto) 0.02 Neutrophils % (Manual) 94 H Band Neutrophils % 2 Lymphocytes % (Manual) 2 L Monocytes % (Manual) 1 Eosinophils % (Manual) 1 Platelet Evaluation High Anisocytosis (manual) 1+ Macrocytosis (manual) 1+ PT INR APTT pO2 29 L VBG pH 7.15 L* VBG pCO2 41.0 VBG HCO3 14.3 L VBG Total CO2 15.6 L VBG O2 Sat (Calc) 57.6 VBG Base Excess -14.0 L VBG Potassium 6.5 H* Sodium 144.0 149 H Chloride 119.0 H 118 H Glucose 57 L Lactate 0.9 FiO2 21.0 Potassium 6.2 H* D Carbon Dioxide 14 L Anion Gap 24 H BUN 21 Creatinine 0.8 Est GFR ( Amer) > 60 Est GFR (Non-Af Amer) > 60 Random Glucose 56 L Calcium 11.3 H Total Bilirubin 0.6 AST 26 ALT 20 Alkaline Phosphatase 168 H D Total Creatine Kinase < 20 L Total Protein 8.3 Albumin 4.2 Globulin 4.1 Albumin/Globulin Ratio 1.0 L Venous Blood Potassium 6.5 H* Urine Color Urine Appearance Urine pH Ur Specific [place] Urine Protein Urine Glucose (UA) Urine Ketones Urine Blood Urine Nitrate Urine Bilirubin Urine Urobilinogen Ur Leukocyte Esterase Urine RBC Urine WBC Ur Epithelial Cells Urine Bacteria 05/03/17 05/03/17 14:50 15:27 WBC RBC Hgb Hct MCV MCH MCHC RDW Plt Count MPV Gran % Lymph % (Auto) [place] % (Auto) Eos % (Auto) Baso % (Auto) Gran # Lymph # (Auto) [place] # (Auto) Eos # (Auto) Baso # (Auto) Neutrophils % (Manual) Band Neutrophils % Lymphocytes % (Manual) Monocytes % (Manual) Eosinophils % (Manual) Platelet Evaluation Anisocytosis (manual) Macrocytosis (manual) PT 14.2 H INR 1.24 H APTT 50.4 H pO2 VBG pH VBG pCO2 VBG HCO3 VBG Total CO2 VBG O2 Sat (Calc) VBG Base Excess VBG Potassium Sodium Chloride Glucose Lactate FiO2 Potassium Carbon Dioxide Anion Gap BUN Creatinine Est GFR ( Amer) Est GFR (Non-Af Amer) Random Glucose Calcium Total Bilirubin AST ALT Alkaline Phosphatase Total Creatine Kinase Total Protein Albumin Globulin Albumin/Globulin Ratio Venous Blood Potassium Urine Color Yellow Urine Appearance Clear Urine pH 6.0 Ur Specific [place] 1.025 Urine Protein Negative Urine Glucose (UA) Negative Urine Ketones 15 H Urine Blood Negative Urine Nitrate Positive H Urine Bilirubin Negative Urine Urobilinogen 0.2 Ur Leukocyte Esterase Small H Urine RBC Negative Urine WBC 5 - 10 Ur Epithelial Cells 1 - 3 Urine Bacteria Many Assessment & Plan - Assessment and Plan (Free Text) Plan: 66 y/o F with PMH of COPD, CHF with EF of 15%, chronic alcohol abuse, DM, right humerus fracture, hepatitis, hodgkins lymphoma, ITP, and depression presents with acute renal failure and UTI. Patient likely has acute renal failure and hyperkalemia secondary to taking too much of potassium supplements and lasix. Patient is currently resting comfortably in bed and on 2L NC. Patient is hemodynamically stable and does not require ICU level of care. Recommendations: Gentle hydration, IVF at 60 cc/hr with follow up every 6 hours monitoring for volume overload Nephrology consult Broad spectrum antibiotics Hold Lasix and potassium supplementation BIPAP at night Palliative care consult Nina, PGY-2 <Mauri Nicholson - Last Filed: 05/03/17 17:07> Meds - Medications Medications: Current Medications Sodium Chloride (Sodium Chloride 0.9%) 1,000 mls @ 60 mls/hr IV .[id number] STA Stop: 05/04/17 07:29 Results - Vital Signs Recent Vital Signs: Last Vital Signs Temp 100.2 F H 05/03/17 14:00 Pulse 96 H 05/03/17 14:00 Resp 18 05/03/17 14:00 BP 113/62 05/03/17 14:00 Pulse Ox 100 05/03/17 14:00 - Labs Result Diagrams: 05/03/17 14:50 05/03/17 14:50 Labs: Laboratory Results - last 24 hr 05/03/17 05/03/17 05/03/17 14:50 14:50 14:50 WBC 20.3 H D RBC 3.03 L Hgb 10.3 L Hct 32.6 L MCV 107.6 H D MCH 34.0 MCHC 31.6 RDW 18.3 H Plt Count 420 MPV 9.0 Gran % 93.7 H Lymph % (Auto) 2.7 L [place] % (Auto) 3.3 Eos % (Auto) 0.2 L Baso % (Auto) 0.1 Gran # 19.04 H Lymph # (Auto) 0.6 L [place] # (Auto) 0.7 H Eos # (Auto) 0.0 Baso # (Auto) 0.02 Neutrophils % (Manual) 94 H Band Neutrophils % 2 Lymphocytes % (Manual) 2 L Monocytes % (Manual) 1 Eosinophils % (Manual) 1 Platelet Evaluation High Anisocytosis (manual) 1+ Macrocytosis (manual) 1+ PT INR APTT pO2 29 L VBG pH 7.15 L* VBG pCO2 41.0 VBG HCO3 14.3 L VBG Total CO2 15.6 L VBG O2 Sat (Calc) 57.6 VBG Base Excess -14.0 L VBG Potassium 6.5 H* Sodium 144.0 149 H Chloride 119.0 H 118 H Glucose 57 L Lactate 0.9 FiO2 21.0 Potassium 6.2 H* D Carbon Dioxide 14 L Anion Gap 24 H BUN 21 Creatinine 0.8 Est GFR ( Amer) > 60 Est GFR (Non-Af Amer) > 60 Random Glucose 56 L Calcium 11.3 H Total Bilirubin 0.6 AST 26 ALT 20 Alkaline Phosphatase 168 H D Total Creatine Kinase < 20 L Total Protein 8.3 Albumin 4.2 Globulin 4.1 Albumin/Globulin Ratio 1.0 L Venous Blood Potassium 6.5 H* Urine Color Urine Appearance Urine pH Ur Specific [place] Urine Protein Urine Glucose (UA) Urine Ketones Urine Blood Urine Nitrate Urine Bilirubin Urine Urobilinogen Ur Leukocyte Esterase Urine RBC Urine WBC Ur Epithelial Cells Urine Bacteria 05/03/17 05/03/17 14:50 15:27 WBC RBC Hgb Hct MCV MCH MCHC RDW Plt Count MPV Gran % Lymph % (Auto) [place] % (Auto) Eos % (Auto) Baso % (Auto) Gran # Lymph # (Auto) [place] # (Auto) Eos # (Auto) Baso # (Auto) Neutrophils % (Manual) Band Neutrophils % Lymphocytes % (Manual) Monocytes % (Manual) Eosinophils % (Manual) Platelet Evaluation Anisocytosis (manual) Macrocytosis (manual) PT 14.2 H INR 1.24 H APTT 50.4 H pO2 VBG pH VBG pCO2 VBG HCO3 VBG Total CO2 VBG O2 Sat (Calc) VBG Base Excess VBG Potassium Sodium Chloride Glucose Lactate FiO2 Potassium Carbon Dioxide Anion Gap BUN Creatinine Est GFR ( Amer) Est GFR (Non-Af Amer) Random Glucose Calcium Total Bilirubin AST ALT Alkaline Phosphatase Total Creatine Kinase Total Protein Albumin Globulin Albumin/Globulin Ratio Venous Blood Potassium Urine Color Yellow Urine Appearance Clear Urine pH 6.0 Ur Specific [place] 1.025 Urine Protein Negative Urine Glucose (UA) Negative Urine Ketones 15 H Urine Blood Negative Urine Nitrate Positive H Urine Bilirubin Negative Urine Urobilinogen 0.2 Ur Leukocyte Esterase Small H Urine RBC Negative Urine WBC 5 - 10 Ur Epithelial Cells 1 - 3 Urine Bacteria Many Assessment & Plan - Assessment and Plan (Free Text) Plan: Patient seen and examined with resident, agree with note with following additions/exceptions:Patient is 66yo female with PMhx of COPD, active smoker, EtOH abuse, CHF EF 15%, DM, ITP, depression, presenting with weakness, fatigue. Pt notes taking Lasix and PO Potassium supplements. Labs with leukocytosis, hyperkalemia, ARF. Currently afebrile, HD stable, comfortable in NAD, providing full history. ARF Hyperkalemia Dehydration Sepsis Leukocytosis Recommend: - supp o2 as needed - BIPAP QHS - Panculture, UCx, BCx, Procal - IVF hydration, NS 60cc/hr - Ulytes, Check TSH - Hold Lasix - D50, Insulin, Calcium, 1amp Bicarb, Kayexalate - GI ppx - DVT ppx
[2017-05-03 23:02] LABS: BLOOD UREA NITROGEN 18 mg/dL (7-21); GFR AFRICAN-AMERICAN > 60; GFR NON-AFRICAN AMERICAN > 60
[2017-05-03] MEDS: Cefepime 1gm in NS 100ml 1 GM/100 ML BAG IVPB SCH (23:56)
[2017-05-04] MEDS ORDERED: Dextrose 50% SYRINGE Inj (50 ml) IVP PRN (03:06)
[2017-05-04] MEDS ORDERED: Dextrose 50% SYRINGE Inj (50 ml) ONE (03:16)
[2017-05-04 07:28] LABS: MEAN CELL VOLUME 105.7 fl (80.0-105.0); MEAN CORPUSCULAR HEMOGLOBIN 34.9 pg (25.0-35.0); MEAN PLATELET VOLUME 8.6 fl (7.0-11.0); RBC 2.12 10^6/uL (3.5-6.1); RED CELL DISTRIBUTION WIDTH 18.3 % (11.5-14.5); WHITE BLOOD COUNT 9.4 10^3/ul (4.5-11.0)
[2017-05-04] MEDS: Budesonide 0.5 mg/2 ml Inhal Susp UD IH SCH ×2 (07:28→19:42)
[2017-05-04] MEDS: Levalbuterol 1.25 MG/3 ML Inhal Soln UD IH SCH ×3 (07:28→19:41)
[2017-05-04 07:40] LABS: HEMOGLOBIN 7.4 g/dL (12.0-16.0)
[2017-05-04 08:06] LABS: ALB/GLOB RATIO 0.9 (1.1-1.8); ALBUMIN 2.4 g/dL (3.0-4.8); ALT/SGPT 22 U/L (7-56); AST/SGOT 14 U/L (14-36); BLOOD UREA NITROGEN 12 mg/dL (7-21); CALCIUM 7.4 mg/dL (8.4-10.5); GFR AFRICAN-AMERICAN > 60; GFR NON-AFRICAN AMERICAN > 60
[2017-05-04 09:17] VITALS: BMI 14.5
[2017-05-04] MEDS ORDERED: Pneumococcal 23-Valent Vaccine IM ONE (09:17)
[2017-05-04] MEDS ORDERED: Influenza Vaccine 60 mcg/0.5 mL SYR (4YR UP) IM ONE (09:17)
--- NOTE | 2017-05-04 09:59 | CP.CCUPN ---
<Tariq Wood - Last Filed: 05/04/17 10:10> CCU Subjective - Physician Review Subjective (Free Text): Patient seen and examined at bedside. Patient states she feels mildly better than yesterday. She complaints of generalized weakness. Denies chest pain, shortness of breath, nausea, vomiting, diarrhea, fever, chills. CCU Objective - Vital Signs / Intake & Output Vital Signs (Last 4 hours): Vital Signs Temp Pulse Pulse Pulse Resp BP Pulse Ox 05/04/17 08:50 97.4 F L 87 93 H 93 H 22 124/68 05/04/17 08:30 84 21 78 L 05/04/17 08:20 85 24 98 05/04/17 08:10 72 19 95 05/04/17 08:00 79 19 97/42 L 98 05/04/17 07:50 84 27 H 98 05/04/17 07:40 83 23 95 05/04/17 07:30 68 19 99 05/04/17 07:20 70 20 88 L 05/04/17 07:10 77 26 H 96 05/04/17 07:00 81 26 H 102/38 L 90 L 05/04/17 06:50 75 20 87 L 05/04/17 06:40 79 21 97 05/04/17 06:30 82 28 H 99 05/04/17 06:20 86 20 97 05/04/17 06:10 90 18 98 05/04/17 06:00 99 F 90 21 104/38 L 73 L Intake and Output (Last 8hrs): Intake & Output 05/03/17 05/04/17 05/04/17 22:59 06:59 14:59 Intake Total 1185 Output Total 350 Balance 835 Weight 89 lb 14.4 oz 89 lb 14.4 oz Intake: IV 480 Left Hand 480 Oral 480 Tube Feeding 0 TPN/PPN 0 Blood Product 0 Lipid 0 Albumin 0 Other 225 Output: Urine 350 Urethral (Cota) 350 Stool 0 Urine/Stool Mix 0 Emesis 0 Oral Regurgitation 0 Other 0 Other: Voiding Method Indwelling Catheter # Voids Urethral (Cota) 0 # Bowel Movements 0 - Physical Exam Head: Positive for: Atraumatic, Normocephalic Mouth: Positive for: Dry Respiratory/Chest: Positive for: Clear to Auscultation, Decreased Breath Sounds Cardiovascular: Positive for: Regular Rate and Rhythm, Normal S1, S2 Abdomen: Positive for: Normal Bowel Sounds. Negative for: Tenderness, Distention Upper Extremity: Positive for: Swelling (Left hand) Lower Extremity: Positive for: Normal Inspection Skin: Positive for: Dry, Pale Psychiatric: Positive for: Alert, Oriented x 3 - Medications Active Medications: Active Medications Generic Name Dose Route Start Last Admin Trade Name Freq PRN Reason Stop Dose Admin Budesonide 0.5 mg 05/04/17 08:00 05/04/17 07:28 Pulmicort Respules IH 0.5 mg [id number] BELEM Administration Dextrose 50 ml 05/04/17 03:06 Dextrose 50% Inj IVP PRN PRN Hypoglycemia Cefepime HCl 1 gm in 100 mls @ 100 mls/hr 05/03/17 22:00 05/03/17 23:56 Maxipime 1gm IVPB 100 mls/hr Q12 BELEM Administration Protocol Sodium Bicarbonate 75 meq/ 1,075 mls @ 60 mls/hr 05/04/17 09:00 Sodium Chloride IV .[id number] BELEM Levalbuterol HCl 1.25 mg 05/04/17 08:00 05/04/17 07:28 Xopenex IH 1.25 mg [id number] BELEM Administration Morphine Sulfate 2 mg 05/04/17 09:54 Morphine IVP Q4H PRN Pain, severe (8-10) Oseltamivir Phosphate 75 mg 05/04/17 10:00 Tamiflu Cap PO 05/08/17 19:15 BID BELEM Protocol - Patient Studies Lab Studies: Lab Studies 05/04/17 05/04/17 05/04/17 Range/Units 09:53 08:23 07:00 WBC (4.5-11.0) 10^3/ul RBC (3.5-6.1) 10^6/uL Hgb (12.0-16.0) g/dL Hct (36.0-48.0) % MCV (80.0-105.0) fl MCH (25.0-35.0) pg MCHC (31.0-37.0) g/dl RDW (11.5-14.5) % Plt Count (120.0-450.0) 10^3/uL MPV (7.0-11.0) fl Sodium 146 (132-148) mmol/L Potassium 3.4 L (3.6-5.0) mmol/L Chloride 123 H (98-107) mmol/L Carbon Dioxide 14 L (21-33) mmol/L Anion Gap 13 (10-20) BUN 12 (7-21) mg/dL Creatinine 0.5 L (0.7-1.2) mg/dl Est GFR ( Amer) > 60 Est GFR (Non-Af Amer) > 60 POC Glucose (mg/dL) 99 88 (65-110) mg/dL Random Glucose 76 (70-110) mg/dL Calcium 7.4 L (8.4-10.5) mg/dL Phosphorus 2.2 L (2.5-4.5) mg/dL Magnesium 1.2 L (1.7-2.2) mg/dL Total Bilirubin 0.2 (0.2-1.3) mg/dL AST 14 D (14-36) U/L ALT 22 (7-56) U/L Alkaline Phosphatase 83 (38-126) U/L Total Protein 5.0 L (5.8-8.3) g/dL Albumin 2.4 L (3.0-4.8) g/dL Globulin 2.6 gm/dL Albumin/Globulin Ratio 0.9 L (1.1-1.8) Influenza Typ A,B (EIA) (NEGATIVE) 05/04/17 05/04/17 05/04/17 Range/Units 07:00 06:58 04:39 WBC 9.4 D (4.5-11.0) 10^3/ul RBC 2.12 L (3.5-6.1) 10^6/uL Hgb 7.4 L D (12.0-16.0) g/dL Hct 22.4 L (36.0-48.0) % MCV 105.7 H (80.0-105.0) fl MCH 34.9 (25.0-35.0) pg MCHC 33.0 (31.0-37.0) g/dl RDW 18.3 H (11.5-14.5) % Plt Count 292 (120.0-450.0) 10^3/uL MPV 8.6 (7.0-11.0) fl Sodium (132-148) mmol/L Potassium (3.6-5.0) mmol/L Chloride (98-107) mmol/L Carbon Dioxide (21-33) mmol/L Anion Gap (10-20) BUN (7-21) mg/dL Creatinine (0.7-1.2) mg/dl Est GFR ( Amer) Est GFR (Non-Af Amer) POC Glucose (mg/dL) 96 110 (65-110) mg/dL Random Glucose (70-110) mg/dL Calcium (8.4-10.5) mg/dL Phosphorus (2.5-4.5) mg/dL Magnesium (1.7-2.2) mg/dL Total Bilirubin (0.2-1.3) mg/dL AST (14-36) U/L ALT (7-56) U/L Alkaline Phosphatase (38-126) U/L Total Protein (5.8-8.3) g/dL Albumin (3.0-4.8) g/dL Globulin gm/dL Albumin/Globulin Ratio (1.1-1.8) Influenza Typ A,B (EIA) (NEGATIVE) 05/04/17 05/04/17 05/03/17 Range/Units 02:56 00:25 22:49 WBC (4.5-11.0) 10^3/ul RBC (3.5-6.1) 10^6/uL Hgb (12.0-16.0) g/dL Hct (36.0-48.0) % MCV (80.0-105.0) fl MCH (25.0-35.0) pg MCHC (31.0-37.0) g/dl RDW (11.5-14.5) % Plt Count (120.0-450.0) 10^3/uL MPV (7.0-11.0) fl Sodium 146 (132-148) mmol/L Potassium 4.7 (3.6-5.0) mmol/L Chloride 117 H (98-107) mmol/L Carbon Dioxide 16 L (21-33) mmol/L Anion Gap 18 (10-20) BUN 18 (7-21) mg/dL Creatinine 0.7 (0.7-1.2) mg/dl Est GFR ( Amer) > 60 Est GFR (Non-Af Amer) > 60 POC Glucose (mg/dL) 65 178 H (65-110) mg/dL Random Glucose 51 L (70-110) mg/dL Calcium 10.0 (8.4-10.5) mg/dL Phosphorus (2.5-4.5) mg/dL Magnesium (1.7-2.2) mg/dL Total Bilirubin (0.2-1.3) mg/dL AST (14-36) U/L ALT (7-56) U/L Alkaline Phosphatase (38-126) U/L Total Protein (5.8-8.3) g/dL Albumin (3.0-4.8) g/dL Globulin gm/dL Albumin/Globulin Ratio (1.1-1.8) Influenza Typ A,B (EIA) (NEGATIVE) 05/03/17 Range/Units 17:40 WBC (4.5-11.0) 10^3/ul RBC (3.5-6.1) 10^6/uL Hgb (12.0-16.0) g/dL Hct (36.0-48.0) % MCV (80.0-105.0) fl MCH (25.0-35.0) pg MCHC (31.0-37.0) g/dl RDW (11.5-14.5) % Plt Count (120.0-450.0) 10^3/uL MPV (7.0-11.0) fl Sodium (132-148) mmol/L Potassium (3.6-5.0) mmol/L Chloride (98-107) mmol/L Carbon Dioxide (21-33) mmol/L Anion Gap (10-20) BUN (7-21) mg/dL Creatinine (0.7-1.2) mg/dl Est GFR ( Amer) Est GFR (Non-Af Amer) POC Glucose (mg/dL) (65-110) mg/dL Random Glucose (70-110) mg/dL Calcium (8.4-10.5) mg/dL Phosphorus (2.5-4.5) mg/dL Magnesium (1.7-2.2) mg/dL Total Bilirubin (0.2-1.3) mg/dL AST (14-36) U/L ALT (7-56) U/L Alkaline Phosphatase (38-126) U/L Total Protein (5.8-8.3) g/dL Albumin (3.0-4.8) g/dL Globulin gm/dL Albumin/Globulin Ratio (1.1-1.8) Influenza Typ A,B (EIA) Pos for influenza a H (NEGATIVE) Laboratory Results - last 24 hr 05/03/17 05/03/17 05/04/17 17:40 22:49 00:25 WBC RBC Hgb Hct MCV MCH MCHC RDW Plt Count MPV Sodium 146 Potassium 4.7 Chloride 117 H Carbon Dioxide 16 L Anion Gap 18 BUN 18 Creatinine 0.7 Est GFR ( Amer) > 60 Est GFR (Non-Af Amer) > 60 POC Glucose (mg/dL) 178 H Random Glucose 51 L Calcium 10.0 Phosphorus Magnesium Total Bilirubin AST ALT Alkaline Phosphatase Total Protein Albumin Globulin Albumin/Globulin Ratio Influenza Typ A,B (EIA) Pos for influenza a H 05/04/17 05/04/17 05/04/17 02:56 04:39 06:58 WBC RBC Hgb Hct MCV MCH MCHC RDW Plt Count MPV Sodium Potassium Chloride Carbon Dioxide Anion Gap BUN Creatinine Est GFR ( Amer) Est GFR (Non-Af Amer) POC Glucose (mg/dL) 65 110 96 Random Glucose Calcium Phosphorus Magnesium Total Bilirubin AST ALT Alkaline Phosphatase Total Protein Albumin Globulin Albumin/Globulin Ratio Influenza Typ A,B (EIA) 05/04/17 05/04/17 05/04/17 07:00 07:00 08:23 WBC 9.4 D RBC 2.12 L Hgb 7.4 L D Hct 22.4 L MCV 105.7 H MCH 34.9 MCHC 33.0 RDW 18.3 H Plt Count 292 MPV 8.6 Sodium 146 Potassium 3.4 L Chloride 123 H Carbon Dioxide 14 L Anion Gap 13 BUN 12 Creatinine 0.5 L Est GFR ( Amer) > 60 Est GFR (Non-Af Amer) > 60 POC Glucose (mg/dL) 88 Random Glucose 76 Calcium 7.4 L Phosphorus 2.2 L Magnesium 1.2 L Total Bilirubin 0.2 AST 14 D ALT 22 Alkaline Phosphatase 83 Total Protein 5.0 L Albumin 2.4 L Globulin 2.6 Albumin/Globulin Ratio 0.9 L Influenza Typ A,B (EIA) 05/04/17 09:53 WBC RBC Hgb Hct MCV MCH MCHC RDW Plt Count MPV Sodium Potassium Chloride Carbon Dioxide Anion Gap BUN Creatinine Est GFR ( Amer) Est GFR (Non-Af Amer) POC Glucose (mg/dL) 99 Random Glucose Calcium Phosphorus Magnesium Total Bilirubin AST ALT Alkaline Phosphatase Total Protein Albumin Globulin Albumin/Globulin Ratio Influenza Typ A,B (EIA) EKG/Cardiology Studies: Cardiology / EKG Studies 05/03/17 14:05 EKG [ELECTROCARDIOGRAM] Stat Comment: Reason For Exam: WEAKNESS Fingerstick Blood Sugar Results: 96 Critical Care Progress Note - Nutrition Nutrition: Nutrition Category Date Time Status Consistent Carbohydrate [DIET] Diets 05/03/17 Breakfast Ordered Assessment/Plan - Assessment and Plan (Free Text) Plan: 66 y/o F with PMH of COPD, CHF with EF of 15%, chronic alcohol abuse, DM, right humerus fracture, hepatitis, hodgkins lymphoma, ITP, and depression presents with acute renal failure and UTI. Patient improving this morning with IVF and antibiotics. Patient is also being scheduled for palliative care consult. Continue current medical regimen. Neuro: AAOx3 No deficits Cardio: Hemodynamically stable Maintain MAP >65 Pulm: BIPAP at night Maintain O2 sat greater than 90% Monitor for fluid overload GI: CCD Protonix Nephro: Hold lasix and potassium supplementation Broad spectrum abx for UTI IVF changed to 1/2 NS with bicarb Maintain euvolemia Heme/ID: Follow blood and urine cultures Maintain normothermia Continue abx Nina, PGY-2 <Mauri Nicholson - Last Filed: 05/04/17 12:01> CCU Objective - Vital Signs / Intake & Output Vital Signs (Last 4 hours): Vital Signs Temp Pulse Pulse Pulse Resp BP Pulse Ox 05/04/17 08:50 97.4 F L 87 93 H 93 H 22 124/68 05/04/17 08:30 84 21 78 L 05/04/17 08:20 85 24 98 05/04/17 08:10 72 19 95 05/04/17 08:00 79 19 97/42 L 98 Intake and Output (Last 8hrs): Intake & Output 05/03/17 05/04/17 05/04/17 22:59 06:59 14:59 Intake Total 1185 Output Total 350 Balance 835 Weight 89 lb 14.4 oz 89 lb 14.4 oz Intake: IV 480 Left Hand 480 Oral 480 Tube Feeding 0 TPN/PPN 0 Blood Product 0 Lipid 0 Albumin 0 Other 225 Output: Urine 350 Urethral (Cota) 350 Stool 0 Urine/Stool Mix 0 Emesis 0 Oral Regurgitation 0 Other 0 Other: Voiding Method Indwelling Catheter # Voids Urethral (Cota) 0 # Bowel Movements 0 - Medications Active Medications: Active Medications Generic Name Dose Route Start Last Admin Trade Name Freq PRN Reason Stop Dose Admin Budesonide 0.5 mg 05/04/17 08:00 05/04/17 07:28 Pulmicort Respules IH 0.5 mg [id number] BELEM Administration Dextrose 50 ml 05/04/17 03:06 Dextrose 50% Inj IVP PRN PRN Hypoglycemia Cefepime HCl 1 gm in 100 mls @ 100 mls/hr 05/03/17 22:00 05/04/17 11:03 Maxipime 1gm IVPB 100 mls/hr Q12 BELEM Administration Protocol Sodium Bicarbonate 75 meq/ 1,075 mls @ 60 mls/hr 05/04/17 09:00 05/04/17 10: 57 Sodium Chloride IV 60 mls/hr .[id number] BELEM Administration Levalbuterol HCl 1.25 mg 05/04/17 08:00 05/04/17 07:28 Xopenex IH 1.25 mg [id number] BELEM Administration Morphine Sulfate 2 mg 05/04/17 09:54 05/04/17 10:03 Morphine IVP 2 mg Q4H PRN Administration Pain, severe (8-10) Oseltamivir Phosphate 75 mg 05/04/17 10:00 05/04/17 10:05 Tamiflu Cap PO 05/08/17 19:15 75 mg BID BELEM Administration Protocol - Patient Studies Lab Studies: Lab Studies 05/04/17 05/04/17 05/04/17 Range/Units 09:53 08:23 07:00 WBC (4.5-11.0) 10^3/ul RBC (3.5-6.1) 10^6/uL Hgb (12.0-16.0) g/dL Hct (36.0-48.0) % MCV (80.0-105.0) fl MCH (25.0-35.0) pg MCHC (31.0-37.0) g/dl RDW (11.5-14.5) % Plt Count (120.0-450.0) 10^3/uL MPV (7.0-11.0) fl Sodium 146 (132-148) mmol/L Potassium 3.4 L (3.6-5.0) mmol/L Chloride 123 H (98-107) mmol/L Carbon Dioxide 14 L (21-33) mmol/L Anion Gap 13 (10-20) BUN 12 (7-21) mg/dL Creatinine 0.5 L (0.7-1.2) mg/dl Est GFR ( Amer) > 60 Est GFR (Non-Af Amer) > 60 POC Glucose (mg/dL) 99 88 (65-110) mg/dL Random Glucose 76 (70-110) mg/dL Calcium 7.4 L (8.4-10.5) mg/dL Phosphorus 2.2 L (2.5-4.5) mg/dL Magnesium 1.2 L (1.7-2.2) mg/dL Total Bilirubin 0.2 (0.2-1.3) mg/dL AST 14 D (14-36) U/L ALT 22 (7-56) U/L Alkaline Phosphatase 83 (38-126) U/L Total Protein 5.0 L (5.8-8.3) g/dL Albumin 2.4 L (3.0-4.8) g/dL Globulin 2.6 gm/dL Albumin/Globulin Ratio 0.9 L (1.1-1.8) Influenza Typ A,B (EIA) (NEGATIVE) 05/04/17 05/04/17 05/04/17 Range/Units 07:00 06:58 04:39 WBC 9.4 D (4.5-11.0) 10^3/ul RBC 2.12 L (3.5-6.1) 10^6/uL Hgb 7.4 L D (12.0-16.0) g/dL Hct 22.4 L (36.0-48.0) % MCV 105.7 H (80.0-105.0) fl MCH 34.9 (25.0-35.0) pg MCHC 33.0 (31.0-37.0) g/dl RDW 18.3 H (11.5-14.5) % Plt Count 292 (120.0-450.0) 10^3/uL MPV 8.6 (7.0-11.0) fl Sodium (132-148) mmol/L Potassium (3.6-5.0) mmol/L Chloride (98-107) mmol/L Carbon Dioxide (21-33) mmol/L Anion Gap (10-20) BUN (7-21) mg/dL Creatinine (0.7-1.2) mg/dl Est GFR ( Amer) Est GFR (Non-Af Amer) POC Glucose (mg/dL) 96 110 (65-110) mg/dL Random Glucose (70-110) mg/dL Calcium (8.4-10.5) mg/dL Phosphorus (2.5-4.5) mg/dL Magnesium (1.7-2.2) mg/dL Total Bilirubin (0.2-1.3) mg/dL AST (14-36) U/L ALT (7-56) U/L Alkaline Phosphatase (38-126) U/L Total Protein (5.8-8.3) g/dL Albumin (3.0-4.8) g/dL Globulin gm/dL Albumin/Globulin Ratio (1.1-1.8) Influenza Typ A,B (EIA) (NEGATIVE) 05/04/17 05/04/17 05/03/17 Range/Units 02:56 00:25 22:49 WBC (4.5-11.0) 10^3/ul RBC (3.5-6.1) 10^6/uL Hgb (12.0-16.0) g/dL Hct (36.0-48.0) % MCV (80.0-105.0) fl MCH (25.0-35.0) pg MCHC (31.0-37.0) g/dl RDW (11.5-14.5) % Plt Count (120.0-450.0) 10^3/uL MPV (7.0-11.0) fl Sodium 146 (132-148) mmol/L Potassium 4.7 (3.6-5.0) mmol/L Chloride 117 H (98-107) mmol/L Carbon Dioxide 16 L (21-33) mmol/L Anion Gap 18 (10-20) BUN 18 (7-21) mg/dL Creatinine 0.7 (0.7-1.2) mg/dl Est GFR ( Amer) > 60 Est GFR (Non-Af Amer) > 60 POC Glucose (mg/dL) 65 178 H (65-110) mg/dL Random Glucose 51 L (70-110) mg/dL Calcium 10.0 (8.4-10.5) mg/dL Phosphorus (2.5-4.5) mg/dL Magnesium (1.7-2.2) mg/dL Total Bilirubin (0.2-1.3) mg/dL AST (14-36) U/L ALT (7-56) U/L Alkaline Phosphatase (38-126) U/L Total Protein (5.8-8.3) g/dL Albumin (3.0-4.8) g/dL Globulin gm/dL Albumin/Globulin Ratio (1.1-1.8) Influenza Typ A,B (EIA) (NEGATIVE) 05/03/17 Range/Units 17:40 WBC (4.5-11.0) 10^3/ul RBC (3.5-6.1) 10^6/uL Hgb (12.0-16.0) g/dL Hct (36.0-48.0) % MCV (80.0-105.0) fl MCH (25.0-35.0) pg MCHC (31.0-37.0) g/dl RDW (11.5-14.5) % Plt Count (120.0-450.0) 10^3/uL MPV (7.0-11.0) fl Sodium (132-148) mmol/L Potassium (3.6-5.0) mmol/L Chloride (98-107) mmol/L Carbon Dioxide (21-33) mmol/L Anion Gap (10-20) BUN (7-21) mg/dL Creatinine (0.7-1.2) mg/dl Est GFR ( Amer) Est GFR (Non-Af Amer) POC Glucose (mg/dL) (65-110) mg/dL Random Glucose (70-110) mg/dL Calcium (8.4-10.5) mg/dL Phosphorus (2.5-4.5) mg/dL Magnesium (1.7-2.2) mg/dL Total Bilirubin (0.2-1.3) mg/dL AST (14-36) U/L ALT (7-56) U/L Alkaline Phosphatase (38-126) U/L Total Protein (5.8-8.3) g/dL Albumin (3.0-4.8) g/dL Globulin gm/dL Albumin/Globulin Ratio (1.1-1.8) Influenza Typ A,B (EIA) Pos for influenza a H (NEGATIVE) Laboratory Results - last 24 hr 05/03/17 05/03/17 05/04/17 17:40 22:49 00:25 WBC RBC Hgb Hct MCV MCH MCHC RDW Plt Count MPV Sodium 146 Potassium 4.7 Chloride 117 H Carbon Dioxide 16 L Anion Gap 18 BUN 18 Creatinine 0.7 Est GFR ( Amer) > 60 Est GFR (Non-Af Amer) > 60 POC Glucose (mg/dL) 178 H Random Glucose 51 L Calcium 10.0 Phosphorus Magnesium Total Bilirubin AST ALT Alkaline Phosphatase Total Protein Albumin Globulin Albumin/Globulin Ratio Influenza Typ A,B (EIA) Pos for influenza a H 05/04/17 05/04/17 05/04/17 02:56 04:39 06:58 WBC RBC Hgb Hct MCV MCH MCHC RDW Plt Count MPV Sodium Potassium Chloride Carbon Dioxide Anion Gap BUN Creatinine Est GFR ( Amer) Est GFR (Non-Af Amer) POC Glucose (mg/dL) 65 110 96 Random Glucose Calcium Phosphorus Magnesium Total Bilirubin AST ALT Alkaline Phosphatase Total Protein Albumin Globulin Albumin/Globulin Ratio Influenza Typ A,B (EIA) 05/04/17 05/04/17 05/04/17 07:00 07:00 08:23 WBC 9.4 D RBC 2.12 L Hgb 7.4 L D Hct 22.4 L MCV 105.7 H MCH 34.9 MCHC 33.0 RDW 18.3 H Plt Count 292 MPV 8.6 Sodium 146 Potassium 3.4 L Chloride 123 H Carbon Dioxide 14 L Anion Gap 13 BUN 12 Creatinine 0.5 L Est GFR ( Amer) > 60 Est GFR (Non-Af Amer) > 60 POC Glucose (mg/dL) 88 Random Glucose 76 Calcium 7.4 L Phosphorus 2.2 L Magnesium 1.2 L Total Bilirubin 0.2 AST 14 D ALT 22 Alkaline Phosphatase 83 Total Protein 5.0 L Albumin 2.4 L Globulin 2.6 Albumin/Globulin Ratio 0.9 L Influenza Typ A,B (EIA) 05/04/17 09:53 WBC RBC Hgb Hct MCV MCH MCHC RDW Plt Count MPV Sodium Potassium Chloride Carbon Dioxide Anion Gap BUN Creatinine Est GFR ( Amer) Est GFR (Non-Af Amer) POC Glucose (mg/dL) 99 Random Glucose Calcium Phosphorus Magnesium Total Bilirubin AST ALT Alkaline Phosphatase Total Protein Albumin Globulin Albumin/Globulin Ratio Influenza Typ A,B (EIA) EKG/Cardiology Studies: Cardiology / EKG Studies 05/03/17 14:05 EKG [ELECTROCARDIOGRAM] Stat Comment: Reason For Exam: WEAKNESS Critical Care Progress Note - Nutrition Nutrition: Nutrition Category Date Time Status Consistent Carbohydrate [DIET] Diets 05/03/17 Breakfast Ordered Assessment/Plan - Assessment and Plan (Free Text) Plan: Patient seen and examined with resident, agree with note with following additions/exceptions: Patient is 66yo female with PMhx of COPD, active smoker, EtOH abuse, CHF EF 15% , DM, ITP, depression, presenting with weakness, fatigue. Pt notes taking Lasix and PO Potassium supplements at home. Currently afebrile, HD stable, comfortable in NAD, providing full history. Labs with improvement in hyperkalemia, K 3.4, and renal function. ARF Dehydration Sepsis Leukocytosis Recommend: - supp o2 as needed - BIPAP QHS - Panculture, UCx, BCx, Procal - Ulytes, Check TSH - switch IVF to 1/2NS with 75meq NaBicarb - HOLD Lasix for now - frequent lung checks - palliative care consult - GI ppx - DVT ppx - stable, transfer to telemetry
[2017-05-04] MEDS: Morphine 2 mg/ml ISec IVP PRN (10:03)
--- NOTE | 2017-05-04 10:23 | HP ---
CHIEF COMPLAINT: Weakness, 1 week of worsening cough and sputum production. HISTORY OF PRESENT ILLNESS: This is a 66-year-old woman, who presented to the emergency room complaining of worsening cough with sputum production, yellow-colored phlegm for approximately 1 week. In the emergency room, she was found to have a white count of over 20,000, pH of 7.1 and the hospital sr. manager was called and arrangements were made for her to be admitted to the intensive care unit. PAST MEDICAL HISTORY: Significant for alcoholic cardiomyopathy with an ejection fraction of approximately 15%. Several hospitalizations for congestive heart failure. She is status post myocardial infarction. She has a history of hypertension, anxiety, alcoholic bone marrow suppression. She has a non-healing fracture of the right humerus with separation at the mid shaft. She is status post cardiac arrest following anesthesia for surgical repair of shaft fracture several years ago. So, she has refused repeated offers for surgery since then. She also was known to have a history of follicular lymphoma in the distant past and rather severe COPD. SOCIAL HISTORY: She has not taken any alcoholic beverage in the last several months. She does however continue to smoke. ALLERGIES: SHE STATED SHE IS ALLERGIC TO BENADRYL WHICH CAUSED SHORTNESS OF BREATH AND HYPERTENSION IN THE PAST. THERE IS ALSO REPORT OF ADVERSE REACTION TO ANESTHESIA FOR SURGICALLY GIVEN TO HER AT THE TIME OF SURGICAL ATTEMPT TO REPAIR OF HER RIGHT HUMERUS FRACTURE MENTIONED ABOVE. HOME MEDICATIONS: Unknown, uncertain and unable to confirm with the patient. REVIEW OF SYSTEMS: Unobtainable due to her weak state. PHYSICAL EXAMINATION GENERAL: The patient was seen in the emergency room this evening in a stretcher, a bit uncomfortable, but no pain. She is awake and oriented, but confused at times, quite ill and frail-appearing. HEAD AND NECK: Unremarkable. Mucous membranes were dry. NECK: Thin and supple. LUNGS: Showed bilateral rhonchi with expiratory wheezes with prolonged expiratory phase and decreased breath sounds in all lung dutta, of severe COPD. HEART: Regular. No murmurs were appreciated. ABDOMEN: Thin, soft, nontender. EXTREMITIES: Thin, with no edema. There is chronic fracture of the right mid humerus. LABORATORY DATA: Showed a white count of 20.3, H and H of 10 and 32. Platelet count is 420. Coags were unremarkable with INR of 1.2. Chemistries on admission showed potassium of 6.2, BUN of 21, creatinine of 0.8. Urinalysis was positive for nitrites with small amount of leukocyte esterase and many bacteria. Influenza screen was positive. IMPRESSION: 1. The patient appears septic, toxic from flu versus upper respiratory infection versus pneumonia. 2. Urinary tract infection. 3. Alcoholic suppression of marrow. 4. Alcoholic cardiomyopathy. 5. History of congestive heart failure. 6. Chronic obstructive pulmonary disease. 7. Tobacco use disorder. PLAN: The patient will be admitted to intensive care unit. Pulmonary consultation with Dr. Parker, Infectious Disease consultation with Dr. Byrd, and Cardiology consultation with Dr. Michael Schulte, who knows her well, have been called. We will continue aggressive IV antibiotics. PROGNOSIS: Poor due to her multiple comorbidities. In past, we spoke to her sons as well as her spouse equivalent lifetime partner Nickolas. He and one son certainly understands the severity of her illness. The patient's other son is insisting that all effort be done including heroic resuscitation, CPR and artificial ventilation. I see that a Palliative Care consultation was already requested. We will talk with the patient and family over the course of the hospital stay and hope for the best. Tripp King MD
--- NOTE | 2017-05-04 10:43 | CARD ---
APPROVED REPORT EKG Measurement Heart [id number] <Conclusion> Sinus rhythm with fusion complexes Possible Left atrial enlargement Left axis deviation Left bundle branch block No change except the rate is slower
[2017-05-04] MEDS: Cefepime 1gm in NS 100ml 1 GM/100 ML BAG IVPB SCH ×2 (11:03→22:14)
--- NOTE | 2017-05-04 14:21 | RAD ---
PROCEDURE: Right Hand Radiographs. HISTORY: pain and swelling COMPARISON: None. FINDINGS: BONES: Normal. No fracture. JOINTS: Normal. No osteoarthritic changes. SOFT TISSUES: Normal. OTHER FINDINGS: None. IMPRESSION: Normal right hand radiographs.
--- NOTE | 2017-05-04 14:51 | CON ---
DATE: 05/04/2017 PULMONARY CONSULTATION REFERRING PHYSICIAN: Tripp King MD. REASON FOR CONSULTATION: Chronic obstructive pulmonary disease. HISTORY OF PRESENT ILLNESS: History is obtained via extensive discussion with the night nurse (ICU). I have also reviewed the chart at length. The patient is not an adequate historian at this point in time. The patient is a chronically ill 66-year-old female, with past medical history significant for chronic obstructive pulmonary disease (advanced), coronary artery disease, multiple myocardial infarctions, cardiac arrhythmias, advanced alcoholic cardiomyopathy, right humeral fracture, depression, who presents to [facility] - accompanied by her family - for increasing lethargy for the past 2 days. In the emergency room, the patient was noted to have multiple electrolyte abnormalities. She was thus admitted for additional evaluation. Again, I did discuss the case with the ICU nurse at length. There is no history of shortness of breath at rest. The patient does experience chronic dyspnea on exertion. There is no history of cough or sputum production. No history of chest pain, coughing up of blood, or chest pain - made worse with deep respirations. The patient did present with low-grade fevers (100.2). No history of chills or infectious exposure. No history of night sweats, weight loss, or appetite change prior to the above events. No history of calf pains. No history of syncope or diaphoresis. No history of recent travel or trauma. REVIEW OF SYSTEMS: No history of nausea, vomiting, or diarrhea. No acute urinary symptoms. Rest of the review of systems is noncontributory. ALLERGIES: BENADRYL, ASPIRIN, AND CERTAIN ANESTHETIC AGENTS. SOCIAL HISTORY: Positive for extensive tobacco usage, also positive for extensive alcohol abuse. FAMILY HISTORY: No inheritable diseases. HOME MEDICATIONS: Include Zofran, Macrobid, Pepcid, and Pedialyte. PHYSICAL EXAMINATION: GENERAL: The patient appears comfortable this morning. She is not short of breath at rest. She does appear very weak. VITAL SIGNS: Temperature is 97.4, pulse 75, respirations 17, blood pressure 116/58. Oxygen saturation on nasal cannula is 99%. HEENT: Normocephalic, atraumatic. No JVD. CARDIOVASCULAR: Positive S1, S2. No S3 gallop. LUNGS: Decreased breath sounds at the bases. Minimal bilateral rhonchi. No wheezing. EXTREMITIES: The patient's right hand appears very ecchymotic. Her legs reveal mild edema. There is no cyanosis or clubbing. Calves are nontender to palpation. GASTROINTESTINAL: Abdomen is soft, nontender, and nondistended. Bowel sounds are positive. SKIN: No acute rash. NEUROLOGIC: Limited at the present time. PERTINENT LABORATORY DATA: Chest x-ray was done and reviewed. There is no active disease noted. CBC: White count 20.3, hemoglobin 10.3, hematocrit 32.6, platelets of 420,000. Complete metabolic profile: Sodium 149, potassium 6.2, chloride 118, carbon dioxide 14, anion gap 24, glucose 56, calcium 11.3, alkaline phosphatase 168. Rest of the metabolic profile is within normal limits. Urinalysis: Urine nitrite positive. Urine leukocyte esterase - small. Urine bacteria - many. Serology for influenza A is positive. IMPRESSION: 1. Encephalopathy, weakness. 2. Sepsis syndrome. 3. Rule out urinary tract infection. 4. Influenza A positivity. 5. Advanced chronic obstructive pulmonary disease. 6. Advanced cardiomyopathy. 7. Coronary artery disease. 8. Multiple electrolyte abnormalities. PLAN: The patient presents to [facility] - accompanied by her family - with main complaint of increasing lethargy for the past 2 days. Again, I did discuss the case with the ICU nurse at length. The night nurse states that she has NOT seen any signs of shortness of breath or cough. I have also reviewed the chest x-ray. The chest x-ray is a poor portable film, but does not show any new significant infiltrates. On physical exam, the patient is in mild bronchospasm. I will start the patient on Xopenex nebulizer treatments and inhaled budesonide. There is no significant alveolar-arterial gradient. Oxygen saturation on nasal cannula is 99%. I will also order aspiration precautions for this patient. Consultations with Dr. Schulte (Cardiology) and Dr. Byrd (Infectious Disease) are ordered. Repeat a.m. labs are pending. The patient's temperature has normalized - while in the hospital. Procalcitonin is also ordered. Clinical status of the patient is certainly improved - compared to the initial presentation. However, the overall status/prognosis for this patient is poor. Lynn Hollis (Palliative Care) has also been consulted. I will discuss the above with the entire ICU team in the next few moments. I will also discuss the above with the attending physician later this morning. Thank you very much for this pulmonary consultation. Adam Parker MD [place]
[2017-05-04] MEDS: Potassium Chloride 40 mEq/30 ml LIQ UD PO ONE (15:00)
--- NOTE | 2017-05-04 15:43 | CP.PCM.CON ---
History of Present Illness - History of Present Illness History of Present Illness: 66 year old female with PMH of CHF with alcoholic cardiomyopathy, DM, COPD, Hodgkin lymphoma, ITP, history of alcohol abuse was recently in [facility] in [place] for poor responsiveness and was intubated then. When she recovered she moved to an LTAC and then to a rehab center and she has been home for about a week now. Yesterday the patient was noted to be lethargic with cough and in the ED was noted to have low grade fevers. She is noted to have positive rapid flu test. She is currently more awake, no headache or dizziness, no nausea or vomiting, no chest pain, no sore throat, no rhinorrhea, no abdominal pain, no diarrhea, no dysuria. In the ED, she was also noted to have leukocytosis and Infectious Diseases consult is requested to further evaluate and manage. Review of Systems - Review of Systems All systems: reviewed and no additional remarkable complaints except (as per HPI ) Past Patient History - Infectious Disease Hx of Infectious Diseases: None - Tetanus Immunizations Tetanus Immunization: Up to Date, Unknown - Past Medical History & Family History Past Medical History?: Yes - Past Social History Smoking Status: Former Smoker - CARDIAC Hx Pacemaker: No - PULMONARY Hx Chronic Obstructive Pulmonary Disease (COPD): Yes Hx Pneumonia: Yes - NEUROLOGICAL Hx Neurological Disorder: Yes (syncope ams) Hx Dizziness: Yes - HEENT Hx HEENT Problems: Yes (eyeglasses) Other/Comment: developes ulcers left eye on eye drops - RENAL Hx Chronic Kidney Disease: No - ENDOCRINE/METABOLIC Hx Diabetes Mellitus Type 2: Yes - HEMATOLOGICAL/ONCOLOGICAL Hx Cancer: Yes ([place]) - INTEGUMENTARY Hx Dermatological Problems: No (LEFT UPPER ARM IN AND OUT OF PORT.) - MUSCULOSKELETAL/RHEUMATOLOGICAL Hx Back Pain: Yes Hx Falls: Yes - GASTROINTESTINAL Hx Gastrointestinal Disorders: Yes (weight loss appetite changes) - GENITOURINARY/GYNECOLOGICAL Hx Urinary Tract Infection: Yes Other/Comment: + urinary catheter - PSYCHIATRIC Hx Psychophysiologic Disorder: Yes Hx Anxiety: Yes Hx Bipolar Disorder: Yes Hx Depression: Yes Hx Substance Use: No Other/Comment: alcohol abuse - SURGICAL HISTORY Hx Mastectomy: No - ANESTHESIA Hx Anesthesia: Yes Hx Anesthesia Reactions: Yes (SEE ALLERGIES) Hx Malignant Hyperthermia: No Meds Allergies/Adverse Reactions: Allergies Allergy/AdvReac Type Severity Reaction Status Date / Time diphenhydramine HCl Allergy SHORTNESS Verified 01/13/17 20:25 [From Benadryl] OF BREATH aspirin AdvReac SHORTNESS Verified 02/11/17 11:12 OF BREATH anesthesia Allergy Intermediate RASH Uncoded 01/13/17 20:25 anesthetic agents Allergy Mild ANAPHYLAXIS Uncoded 02/04/17 09:33 - Medications Medications: Current Medications Dextrose (Dextrose 50% Inj) 50 ml IVP PRN PRN PRN Reason: Hypoglycemia Sodium Chloride (Sodium Chloride 0.9%) 1,000 mls @ 60 mls/hr IV .[id number] STA Stop: 05/04/17 07:29 Last Admin: 05/03/17 17:09 Dose: 60 mls/hr Cefepime HCl (Maxipime 1gm) 1 gm in 100 mls @ 100 mls/hr IVPB Q12 BELEM PRN Reason: Protocol Last Admin: 05/03/17 23:56 Dose: 100 mls/hr Oseltamivir Phosphate (Tamiflu Cap) 75 mg PO BID BELEM PRN Reason: Protocol Stop: 05/08/17 19:15 Physical Exam - Constitutional Appears: Non-toxic, Chronically Ill - Head Exam Head Exam: NORMAL INSPECTION - ENT Exam ENT Exam: Mucous Membranes Moist - Neck Exam Neck exam: Negative for: Meningismus - Respiratory Exam Respiratory Exam: Decreased Breath Sounds - Cardiovascular Exam Cardiovascular Exam: +S1, +S2 - GI/Abdominal Exam GI & Abdominal Exam: Soft. absent: Tenderness Results - Vital Signs Recent Vital Signs: Last Vital Signs Temp 97.4 F L 05/03/17 22:55 Pulse 75 05/04/17 04:50 Resp 17 05/04/17 04:50 BP 116/58 L 05/04/17 04:27 Pulse Ox 99 05/04/17 04:58 - Labs Result Diagrams: 05/04/17 07:00 05/04/17 07:00 Labs: Laboratory Results - last 24 hr 05/03/17 05/03/17 05/04/17 17:40 22:49 00:25 Sodium 146 Potassium 4.7 Chloride 117 H Carbon Dioxide 16 L Anion Gap 18 BUN 18 Creatinine 0.7 Est GFR ( Amer) > 60 Est GFR (Non-Af Amer) > 60 POC Glucose (mg/dL) 178 H Random Glucose 51 L Calcium 10.0 Influenza Typ A,B (EIA) Pos for influenza a H 05/04/17 05/04/17 02:56 04:39 Sodium Potassium Chloride Carbon Dioxide Anion Gap BUN Creatinine Est GFR ( Amer) Est GFR (Non-Af Amer) POC Glucose (mg/dL) 65 110 Random Glucose Calcium Influenza Typ A,B (EIA) Assessment & Plan - Assessment and Plan (Free Text) Plan: Assessment Sepsis due to systemic viral illness with Influenza A, R/O bacterial infection history of VDRF from poor responsiveness, on top of probable severe sepsis from HCAP, bilateral CHF with alcoholic cardiomyopathy DM COPD Hodgkin lymphoma ITP history of alcohol abuse Plan patient started on Tamiflu and should complete 5 days started on a dose of IV Vancomycin and started Cefepime pending blood, urine cx , PCT; CXR does not show infiltrates - if cultures are negative will d/c antibiotics will monitor clinically
[2017-05-05] MEDS: Morphine 2 mg/ml ISec IVP PRN ×3 (01:09→21:49)
[2017-05-05] MEDS: Levalbuterol 1.25 MG/3 ML Inhal Soln UD IH SCH ×4 (02:15→19:40)
[2017-05-05] MEDS: Budesonide 0.5 mg/2 ml Inhal Susp UD IH SCH ×2 (07:05→19:40)
[2017-05-05 08:44] LABS: HEMOGLOBIN 10.1 g/dL (12.0-16.0); MEAN CELL VOLUME 98.1 fl (80.0-105.0); MEAN CORPUSCULAR HEMOGLOBIN 32.3 pg (25.0-35.0); MEAN CORPUSCULAR HGB CONC 32.9 g/dl (31.0-37.0); MEAN PLATELET VOLUME 9.1 fl (7.0-11.0); RBC 3.13 10^6/uL (3.5-6.1); RED CELL DISTRIBUTION WIDTH 21.1 % (11.5-14.5); WHITE BLOOD COUNT 9.2 10^3/ul (4.5-11.0)
[2017-05-05 08:51] LABS: INR 1.25 (0.93-1.08); PARTIAL THROMBOPLASTIN TIME 38.5 Seconds (25.1-36.5); PROTHROMBIN TIME 14.4 SECONDS (9.4-12.5)
[2017-05-05 09:09] LABS: ALBUMIN 3.2 g/dL (3.0-4.8); ALT/SGPT 14 U/L (7-56); AST/SGOT 25 U/L (14-36); BLOOD UREA NITROGEN 13 mg/dL (7-21); CALCIUM 9.6 mg/dL (8.4-10.5); GFR AFRICAN-AMERICAN > 60; GFR NON-AFRICAN AMERICAN > 60
[2017-05-05] MEDS: Cefepime 1gm in NS 100ml 1 GM/100 ML BAG IVPB SCH (09:23)
--- NOTE | 2017-05-05 11:55 | CP.CCUPN ---
<Tariq Wood - Last Filed: 05/05/17 11:52> CCU Subjective - Physician Review Subjective (Free Text): Patient seen and examined at bedside. Patient states she is tired this morning. Denies chest pain, shortness of breath, nausea, vomiting, diarrhea, fever, chills. CCU Objective - Vital Signs / Intake & Output Intake and Output (Last 8hrs): Intake & Output 05/04/17 05/05/17 05/05/17 22:59 06:59 14:59 Intake Total 650 1150 Output Total 400 2000 Balance 250 -850 Weight 86 lb Intake: IV 800 Left Hand 800 Oral 650 100 Blood Product 250 Output: Urine 400 2000 Urethral (Cota) 400 2000 Stool 0 Other: # Bowel Movements 0 - Physical Exam Head: Positive for: Atraumatic, Normocephalic Mouth: Positive for: Dry Respiratory/Chest: Positive for: Clear to Auscultation, Decreased Breath Sounds Cardiovascular: Positive for: Regular Rate and Rhythm, Normal S1, S2 Abdomen: Positive for: Normal Bowel Sounds. Negative for: Tenderness, Distention Upper Extremity: Positive for: Swelling (b/l hands, compresses on both) Lower Extremity: Positive for: Normal Inspection Skin: Positive for: Dry, Pale Psychiatric: Positive for: Alert, Oriented x 3 - Medications Active Medications: Active Medications Generic Name Dose Route Start Last Admin Trade Name Freq PRN Reason Stop Dose Admin Alprazolam 1 mg 05/04/17 18:00 05/05/17 09:06 Xanax PO 05/11/17 18:01 1 mg TID BELEM Administration Protocol Budesonide 0.5 mg 05/04/17 08:00 05/05/17 07:05 Pulmicort Respules IH 0.5 mg [id number] BELEM Administration Dextrose 50 ml 05/04/17 03:06 Dextrose 50% Inj IVP PRN PRN Hypoglycemia Cefepime HCl 1 gm in 100 mls @ 100 mls/hr 05/03/17 22:00 05/05/17 09:23 Maxipime 1gm IVPB 100 mls/hr Q12 BELEM Administration Protocol Sodium Bicarbonate 75 meq/ 1,075 mls @ 60 mls/hr 05/04/17 09:00 05/05/17 09: 23 Sodium Chloride IV 60 mls/hr .[id number] BELEM Administration Levalbuterol HCl 1.25 mg 05/04/17 08:00 05/05/17 07:05 Xopenex IH 1.25 mg [id number] BELEM Administration Morphine Sulfate 2 mg 05/04/17 09:54 05/05/17 09:07 Morphine IVP 2 mg Q4H PRN Administration Pain, severe (8-10) Oseltamivir Phosphate 75 mg 05/04/17 10:00 05/05/17 09:07 Tamiflu Cap PO 05/08/17 19:15 75 mg BID BELEM Administration Protocol - Patient Studies Lab Studies: Lab Studies 05/05/17 05/05/17 05/05/17 Range/Units 10:52 08:38 08:38 WBC (4.5-11.0) 10^3/ul RBC (3.5-6.1) 10^6/uL Hgb (12.0-16.0) g/dL Hct (36.0-48.0) % MCV (80.0-105.0) fl MCH (25.0-35.0) pg MCHC (31.0-37.0) g/dl RDW (11.5-14.5) % Plt Count (120.0-450.0) 10^3/uL MPV (7.0-11.0) fl PT 14.4 H (9.4-12.5) SECONDS INR 1.25 H (0.93-1.08) APTT 38.5 H (25.1-36.5) Seconds Sodium 140 (132-148) mmol/L Potassium 4.2 (3.6-5.0) mmol/L Chloride 103 (98-107) mmol/L Carbon Dioxide 26 (21-33) mmol/L Anion Gap 14 (10-20) BUN 13 (7-21) mg/dL Creatinine 0.6 L (0.7-1.2) mg/dl Est GFR ( Amer) > 60 Est GFR (Non-Af Amer) > 60 POC Glucose (mg/dL) 98 (65-110) mg/dL Random Glucose 96 (70-110) mg/dL Calcium 9.6 (8.4-10.5) mg/dL Total Bilirubin 0.4 (0.2-1.3) mg/dL AST 25 (14-36) U/L ALT 14 (7-56) U/L Alkaline Phosphatase 125 (38-126) U/L Total Protein 6.4 (5.8-8.3) g/dL Albumin 3.2 (3.0-4.8) g/dL Globulin 3.2 gm/dL Albumin/Globulin Ratio 1.0 L (1.1-1.8) Procalcitonin (0.19-0.49) NG/ML Blood Type Antibody Screen Crossmatch BBK History Checked 05/05/17 05/05/17 05/04/17 Range/Units 08:38 05:55 22:29 WBC 9.2 (4.5-11.0) 10^3/ul RBC 3.13 L (3.5-6.1) 10^6/uL Hgb 10.1 L D (12.0-16.0) g/dL Hct 30.7 L (36.0-48.0) % MCV 98.1 D (80.0-105.0) fl MCH 32.3 (25.0-35.0) pg MCHC 32.9 (31.0-37.0) g/dl RDW 21.1 H (11.5-14.5) % Plt Count 291 (120.0-450.0) 10^3/uL MPV 9.1 (7.0-11.0) fl PT (9.4-12.5) SECONDS INR (0.93-1.08) APTT (25.1-36.5) Seconds Sodium (132-148) mmol/L Potassium (3.6-5.0) mmol/L Chloride (98-107) mmol/L Carbon Dioxide (21-33) mmol/L Anion Gap (10-20) BUN (7-21) mg/dL Creatinine (0.7-1.2) mg/dl Est GFR ( Amer) Est GFR (Non-Af Amer) POC Glucose (mg/dL) 86 106 (65-110) mg/dL Random Glucose (70-110) mg/dL Calcium (8.4-10.5) mg/dL Total Bilirubin (0.2-1.3) mg/dL AST (14-36) U/L ALT (7-56) U/L Alkaline Phosphatase (38-126) U/L Total Protein (5.8-8.3) g/dL Albumin (3.0-4.8) g/dL Globulin gm/dL Albumin/Globulin Ratio (1.1-1.8) Procalcitonin (0.19-0.49) NG/ML Blood Type Antibody Screen Crossmatch BBK History Checked 05/04/17 05/04/17 05/04/17 Range/Units 15:35 15:22 11:54 WBC (4.5-11.0) 10^3/ul RBC (3.5-6.1) 10^6/uL Hgb (12.0-16.0) g/dL Hct (36.0-48.0) % MCV (80.0-105.0) fl MCH (25.0-35.0) pg MCHC (31.0-37.0) g/dl RDW (11.5-14.5) % Plt Count (120.0-450.0) 10^3/uL MPV (7.0-11.0) fl PT (9.4-12.5) SECONDS INR (0.93-1.08) APTT (25.1-36.5) Seconds Sodium (132-148) mmol/L Potassium (3.6-5.0) mmol/L Chloride (98-107) mmol/L Carbon Dioxide (21-33) mmol/L Anion Gap (10-20) BUN (7-21) mg/dL Creatinine (0.7-1.2) mg/dl Est GFR ( Amer) Est GFR (Non-Af Amer) POC Glucose (mg/dL) 109 90 (65-110) mg/dL Random Glucose (70-110) mg/dL Calcium (8.4-10.5) mg/dL Total Bilirubin (0.2-1.3) mg/dL AST (14-36) U/L ALT (7-56) U/L Alkaline Phosphatase (38-126) U/L Total Protein (5.8-8.3) g/dL Albumin (3.0-4.8) g/dL Globulin gm/dL Albumin/Globulin Ratio (1.1-1.8) Procalcitonin (0.19-0.49) NG/ML Blood Type B NEGATIVE Antibody Screen Negative Crossmatch See Detail BBK History Checked Patient has bt 05/04/17 Range/Units 07:00 WBC (4.5-11.0) 10^3/ul RBC (3.5-6.1) 10^6/uL Hgb (12.0-16.0) g/dL Hct (36.0-48.0) % MCV (80.0-105.0) fl MCH (25.0-35.0) pg MCHC (31.0-37.0) g/dl RDW (11.5-14.5) % Plt Count (120.0-450.0) 10^3/uL MPV (7.0-11.0) fl PT (9.4-12.5) SECONDS INR (0.93-1.08) APTT (25.1-36.5) Seconds Sodium (132-148) mmol/L Potassium (3.6-5.0) mmol/L Chloride (98-107) mmol/L Carbon Dioxide (21-33) mmol/L Anion Gap (10-20) BUN (7-21) mg/dL Creatinine (0.7-1.2) mg/dl Est GFR ( Amer) Est GFR (Non-Af Amer) POC Glucose (mg/dL) (65-110) mg/dL Random Glucose (70-110) mg/dL Calcium (8.4-10.5) mg/dL Total Bilirubin (0.2-1.3) mg/dL AST (14-36) U/L ALT (7-56) U/L Alkaline Phosphatase (38-126) U/L Total Protein (5.8-8.3) g/dL Albumin (3.0-4.8) g/dL Globulin gm/dL Albumin/Globulin Ratio (1.1-1.8) Procalcitonin 37.28 H (0.19-0.49) NG/ML Blood Type Antibody Screen Crossmatch BBK History Checked Laboratory Results - last 24 hr 05/04/17 05/04/17 05/04/17 07:00 11:54 15:22 WBC RBC Hgb Hct MCV MCH MCHC RDW Plt Count MPV PT INR APTT Sodium Potassium Chloride Carbon Dioxide Anion Gap BUN Creatinine Est GFR ( Amer) Est GFR (Non-Af Amer) POC Glucose (mg/dL) 90 Random Glucose Calcium Total Bilirubin AST ALT Alkaline Phosphatase Total Protein Albumin Globulin Albumin/Globulin Ratio Procalcitonin 37.28 H Blood Type B NEGATIVE Antibody Screen Negative Crossmatch See Detail BBK History Checked Patient has bt 05/04/17 05/04/17 05/05/17 15:35 22:29 05:55 WBC RBC Hgb Hct MCV MCH MCHC RDW Plt Count MPV PT INR APTT Sodium Potassium Chloride Carbon Dioxide Anion Gap BUN Creatinine Est GFR ( Amer) Est GFR (Non-Af Amer) POC Glucose (mg/dL) 109 106 86 Random Glucose Calcium Total Bilirubin AST ALT Alkaline Phosphatase Total Protein Albumin Globulin Albumin/Globulin Ratio Procalcitonin Blood Type Antibody Screen Crossmatch BBK History Checked 05/05/17 05/05/17 05/05/17 08:38 08:38 08:38 WBC 9.2 RBC 3.13 L Hgb 10.1 L D Hct 30.7 L MCV 98.1 D MCH 32.3 MCHC 32.9 RDW 21.1 H Plt Count 291 MPV 9.1 PT 14.4 H INR 1.25 H APTT 38.5 H Sodium 140 Potassium 4.2 Chloride 103 Carbon Dioxide 26 Anion Gap 14 BUN 13 Creatinine 0.6 L Est GFR ( Amer) > 60 Est GFR (Non-Af Amer) > 60 POC Glucose (mg/dL) Random Glucose 96 Calcium 9.6 Total Bilirubin 0.4 AST 25 ALT 14 Alkaline Phosphatase 125 Total Protein 6.4 Albumin 3.2 Globulin 3.2 Albumin/Globulin Ratio 1.0 L Procalcitonin Blood Type Antibody Screen Crossmatch BBK History Checked 05/05/17 10:52 WBC RBC Hgb Hct MCV MCH MCHC RDW Plt Count MPV PT INR APTT Sodium Potassium Chloride Carbon Dioxide Anion Gap BUN Creatinine Est GFR ( Amer) Est GFR (Non-Af Amer) POC Glucose (mg/dL) 98 Random Glucose Calcium Total Bilirubin AST ALT Alkaline Phosphatase Total Protein Albumin Globulin Albumin/Globulin Ratio Procalcitonin Blood Type Antibody Screen Crossmatch BBK History Checked Fingerstick Blood Sugar Results: 86 Critical Care Progress Note - Nutrition Nutrition: Nutrition Category Date Time Status Consistent Carbohydrate [DIET] Diets 05/03/17 Breakfast Ordered Assessment/Plan - Assessment and Plan (Free Text) Plan: 66 y/o F with PMH of COPD, CHF with EF of 15%, chronic alcohol abuse, DM, right humerus fracture, hepatitis, hodgkins lymphoma, ITP, and depression presents with acute renal failure and UTI. Patient found to have Klebsiella pneumoniae in urine. Will reassess antibiotics at this time. Patient is also being scheduled for palliative care consult. Patient is alert and hemodynamically stable. Patient will be transferred to remote telemetry. Neuro: AAOx3 No deficits Cardio: Hemodynamically stable Maintain MAP >65 Pulm: BIPAP at night Maintain O2 sat greater than 90% Monitor for fluid overload GI: CCD Protonix Nephro: Hold lasix and potassium supplementation Change Cefepime to Meropenem IVF changed to 1/2 NS with bicarb Maintain euvolemia Heme/ID: Afebrile, no leukocytosis Urine cultures show Klebsiella pneumoniae Maintain normothermia Continue abx Nina, PGY-2 <Mauri Nicholson - Last Filed: 05/05/17 12:09> CCU Objective - Vital Signs / Intake & Output Intake and Output (Last 8hrs): Intake & Output 05/04/17 05/05/17 05/05/17 22:59 06:59 14:59 Intake Total 650 1150 Output Total 400 2000 Balance 250 -850 Weight 86 lb Intake: IV 800 Left Hand 800 Oral 650 100 Blood Product 250 Output: Urine 400 2000 Urethral (Cota) 400 2000 Stool 0 Other: # Bowel Movements 0 - Medications Active Medications: Active Medications Generic Name Dose Route Start Last Admin Trade Name Freq PRN Reason Stop Dose Admin Alprazolam 1 mg 05/04/17 18:00 05/05/17 09:06 Xanax PO 05/11/17 18:01 1 mg TID BELEM Administration Protocol Budesonide 0.5 mg 05/04/17 08:00 05/05/17 07:05 Pulmicort Respules IH 0.5 mg [id number] BELEM Administration Dextrose 50 ml 05/04/17 03:06 Dextrose 50% Inj IVP PRN PRN Hypoglycemia Sodium Bicarbonate 75 meq/ 1,075 mls @ 60 mls/hr 05/04/17 09:00 05/05/17 09: 23 Sodium Chloride IV 60 mls/hr .[id number] BELEM Administration Meropenem 500 mg/ Sodium 50 mls @ 100 mls/hr 05/05/17 14:00 Chloride IVPB 05/05/17 22:29 Q8 BELEM Protocol Levalbuterol HCl 1.25 mg 05/04/17 08:00 05/05/17 07:05 Xopenex IH 1.25 mg [id number] BELEM Administration Morphine Sulfate 2 mg 05/04/17 09:54 05/05/17 09:07 Morphine IVP 2 mg Q4H PRN Administration Pain, severe (8-10) Oseltamivir Phosphate 75 mg 05/04/17 10:00 05/05/17 09:07 Tamiflu Cap PO 05/08/17 19:15 75 mg BID BELEM Administration Protocol - Patient Studies Lab Studies: Lab Studies 05/05/17 05/05/17 05/05/17 Range/Units 10:52 08:38 08:38 WBC (4.5-11.0) 10^3/ul RBC (3.5-6.1) 10^6/uL Hgb (12.0-16.0) g/dL Hct (36.0-48.0) % MCV (80.0-105.0) fl MCH (25.0-35.0) pg MCHC (31.0-37.0) g/dl RDW (11.5-14.5) % Plt Count (120.0-450.0) 10^3/uL MPV (7.0-11.0) fl PT 14.4 H (9.4-12.5) SECONDS INR 1.25 H (0.93-1.08) APTT 38.5 H (25.1-36.5) Seconds Sodium 140 (132-148) mmol/L Potassium 4.2 (3.6-5.0) mmol/L Chloride 103 (98-107) mmol/L Carbon Dioxide 26 (21-33) mmol/L Anion Gap 14 (10-20) BUN 13 (7-21) mg/dL Creatinine 0.6 L (0.7-1.2) mg/dl Est GFR ( Amer) > 60 Est GFR (Non-Af Amer) > 60 POC Glucose (mg/dL) 98 (65-110) mg/dL Random Glucose 96 (70-110) mg/dL Calcium 9.6 (8.4-10.5) mg/dL Total Bilirubin 0.4 (0.2-1.3) mg/dL AST 25 (14-36) U/L ALT 14 (7-56) U/L Alkaline Phosphatase 125 (38-126) U/L Total Protein 6.4 (5.8-8.3) g/dL Albumin 3.2 (3.0-4.8) g/dL Globulin 3.2 gm/dL Albumin/Globulin Ratio 1.0 L (1.1-1.8) Procalcitonin (0.19-0.49) NG/ML Blood Type Antibody Screen Crossmatch BBK History Checked 05/05/17 05/05/17 05/04/17 Range/Units 08:38 05:55 22:29 WBC 9.2 (4.5-11.0) 10^3/ul RBC 3.13 L (3.5-6.1) 10^6/uL Hgb 10.1 L D (12.0-16.0) g/dL Hct 30.7 L (36.0-48.0) % MCV 98.1 D (80.0-105.0) fl MCH 32.3 (25.0-35.0) pg MCHC 32.9 (31.0-37.0) g/dl RDW 21.1 H (11.5-14.5) % Plt Count 291 (120.0-450.0) 10^3/uL MPV 9.1 (7.0-11.0) fl PT (9.4-12.5) SECONDS INR (0.93-1.08) APTT (25.1-36.5) Seconds Sodium (132-148) mmol/L Potassium (3.6-5.0) mmol/L Chloride (98-107) mmol/L Carbon Dioxide (21-33) mmol/L Anion Gap (10-20) BUN (7-21) mg/dL Creatinine (0.7-1.2) mg/dl Est GFR ( Amer) Est GFR (Non-Af Amer) POC Glucose (mg/dL) 86 106 (65-110) mg/dL Random Glucose (70-110) mg/dL Calcium (8.4-10.5) mg/dL Total Bilirubin (0.2-1.3) mg/dL AST (14-36) U/L ALT (7-56) U/L Alkaline Phosphatase (38-126) U/L Total Protein (5.8-8.3) g/dL Albumin (3.0-4.8) g/dL Globulin gm/dL Albumin/Globulin Ratio (1.1-1.8) Procalcitonin (0.19-0.49) NG/ML Blood Type Antibody Screen Crossmatch BBK History Checked 05/04/17 05/04/17 05/04/17 Range/Units 15:35 15:22 11:54 WBC (4.5-11.0) 10^3/ul RBC (3.5-6.1) 10^6/uL Hgb (12.0-16.0) g/dL Hct (36.0-48.0) % MCV (80.0-105.0) fl MCH (25.0-35.0) pg MCHC (31.0-37.0) g/dl RDW (11.5-14.5) % Plt Count (120.0-450.0) 10^3/uL MPV (7.0-11.0) fl PT (9.4-12.5) SECONDS INR (0.93-1.08) APTT (25.1-36.5) Seconds Sodium (132-148) mmol/L Potassium (3.6-5.0) mmol/L Chloride (98-107) mmol/L Carbon Dioxide (21-33) mmol/L Anion Gap (10-20) BUN (7-21) mg/dL Creatinine (0.7-1.2) mg/dl Est GFR ( Amer) Est GFR (Non-Af Amer) POC Glucose (mg/dL) 109 90 (65-110) mg/dL Random Glucose (70-110) mg/dL Calcium (8.4-10.5) mg/dL Total Bilirubin (0.2-1.3) mg/dL AST (14-36) U/L ALT (7-56) U/L Alkaline Phosphatase (38-126) U/L Total Protein (5.8-8.3) g/dL Albumin (3.0-4.8) g/dL Globulin gm/dL Albumin/Globulin Ratio (1.1-1.8) Procalcitonin (0.19-0.49) NG/ML Blood Type B NEGATIVE Antibody Screen Negative Crossmatch See Detail BBK History Checked Patient has bt 05/04/17 Range/Units 07:00 WBC (4.5-11.0) 10^3/ul RBC (3.5-6.1) 10^6/uL Hgb (12.0-16.0) g/dL Hct (36.0-48.0) % MCV (80.0-105.0) fl MCH (25.0-35.0) pg MCHC (31.0-37.0) g/dl RDW (11.5-14.5) % Plt Count (120.0-450.0) 10^3/uL MPV (7.0-11.0) fl PT (9.4-12.5) SECONDS INR (0.93-1.08) APTT (25.1-36.5) Seconds Sodium (132-148) mmol/L Potassium (3.6-5.0) mmol/L Chloride (98-107) mmol/L Carbon Dioxide (21-33) mmol/L Anion Gap (10-20) BUN (7-21) mg/dL Creatinine (0.7-1.2) mg/dl Est GFR ( Amer) Est GFR (Non-Af Amer) POC Glucose (mg/dL) (65-110) mg/dL Random Glucose (70-110) mg/dL Calcium (8.4-10.5) mg/dL Total Bilirubin (0.2-1.3) mg/dL AST (14-36) U/L ALT (7-56) U/L Alkaline Phosphatase (38-126) U/L Total Protein (5.8-8.3) g/dL Albumin (3.0-4.8) g/dL Globulin gm/dL Albumin/Globulin Ratio (1.1-1.8) Procalcitonin 37.28 H (0.19-0.49) NG/ML Blood Type Antibody Screen Crossmatch BBK History Checked Laboratory Results - last 24 hr 05/04/17 05/04/17 05/04/17 07:00 11:54 15:22 WBC RBC Hgb Hct MCV MCH MCHC RDW Plt Count MPV PT INR APTT Sodium Potassium Chloride Carbon Dioxide Anion Gap BUN Creatinine Est GFR ( Amer) Est GFR (Non-Af Amer) POC Glucose (mg/dL) 90 Random Glucose Calcium Total Bilirubin AST ALT Alkaline Phosphatase Total Protein Albumin Globulin Albumin/Globulin Ratio Procalcitonin 37.28 H Blood Type B NEGATIVE Antibody Screen Negative Crossmatch See Detail BBK History Checked Patient has bt 05/04/17 05/04/17 05/05/17 15:35 22:29 05:55 WBC RBC Hgb Hct MCV MCH MCHC RDW Plt Count MPV PT INR APTT Sodium Potassium Chloride Carbon Dioxide Anion Gap BUN Creatinine Est GFR ( Amer) Est GFR (Non-Af Amer) POC Glucose (mg/dL) 109 106 86 Random Glucose Calcium Total Bilirubin AST ALT Alkaline Phosphatase Total Protein Albumin Globulin Albumin/Globulin Ratio Procalcitonin Blood Type Antibody Screen Crossmatch BBK History Checked 05/05/17 05/05/17 05/05/17 08:38 08:38 08:38 WBC 9.2 RBC 3.13 L Hgb 10.1 L D Hct 30.7 L MCV 98.1 D MCH 32.3 MCHC 32.9 RDW 21.1 H Plt Count 291 MPV 9.1 PT 14.4 H INR 1.25 H APTT 38.5 H Sodium 140 Potassium 4.2 Chloride 103 Carbon Dioxide 26 Anion Gap 14 BUN 13 Creatinine 0.6 L Est GFR ( Amer) > 60 Est GFR (Non-Af Amer) > 60 POC Glucose (mg/dL) Random Glucose 96 Calcium 9.6 Total Bilirubin 0.4 AST 25 ALT 14 Alkaline Phosphatase 125 Total Protein 6.4 Albumin 3.2 Globulin 3.2 Albumin/Globulin Ratio 1.0 L Procalcitonin Blood Type Antibody Screen Crossmatch BBK History Checked 05/05/17 10:52 WBC RBC Hgb Hct MCV MCH MCHC RDW Plt Count MPV PT INR APTT Sodium Potassium Chloride Carbon Dioxide Anion Gap BUN Creatinine Est GFR ( Amer) Est GFR (Non-Af Amer) POC Glucose (mg/dL) 98 Random Glucose Calcium Total Bilirubin AST ALT Alkaline Phosphatase Total Protein Albumin Globulin Albumin/Globulin Ratio Procalcitonin Blood Type Antibody Screen Crossmatch BBK History Checked Critical Care Progress Note - Nutrition Nutrition: Nutrition Category Date Time Status Consistent Carbohydrate [DIET] Diets 05/03/17 Breakfast Ordered Assessment/Plan - Assessment and Plan (Free Text) Plan: Patient seen and examined with resident, agree with note with following additions/exceptions: Patient is 66yo female with PMhx of COPD, active smoker, EtOH abuse, CHF EF 15% , DM, ITP, depression, presenting with weakness, fatigue, FLU, UTI. Currently afebrile, HD stable, comfortable in NAD, s/p 1u PRBC transfusion yesterday, HH stable. Labs with improvement in renal function. UCx noted will make appropriate changes to antibiotics. ARF Dehydration Sepsis Leukocytosis Recommend: - supp o2 as needed - BIPAP QHS - change antibiotics to coverage for Urine culture - Tamiflu - Follow up ID - Ulytes, Check TSH - DC IVF - resume Lasix 40mg PO daily - frequent lung checks - palliative care consult - GI ppx - DVT ppx - stable, transfer to telemetry
[2017-05-05] MEDS: Furosemide 40 mg/5 mL Oral Soln UD PO SCH (12:35)
[2017-05-05] MEDS ORDERED: Meropenem 500 MG in Sodium Chloride 0.9% 50 ML IVPB SCH (14:00)
--- NOTE | 2017-05-05 15:57 | PN ---
DATE: 05/05/2017 SUBJECTIVE: The patient is seen in bed earlier today in 128, bed 6, and she appears to be comfortable. No fevers and no chills. Temperature is down. PHYSICAL EXAMINATION: VITAL SIGNS: Temperature is 97, blood pressure is 80/40, respiratory rate of 21, and heart rate of 90. HEENT: Unremarkable. NECK: Supple. LUNGS: Decreased breath sounds. HEART: Normal S1, S2. ABDOMEN: Soft. LABORATORY DATA: Laboratory examination reveals a white count of 9.2, hemoglobin of 10, and platelets of 291. Coagulation is noted. BUN of 13, creatinine of 0.6. Procalcitonin is 37. Urinalysis is noted. Serology is positive for influenza. Microbiology reveals there is Klebsiella in the urine. The blood cultures are negative. No growth at 24 hours. The Klebsiella in the urine is an ESBL Klebsiella and urinalysis with 5 to 10 wbc's, many bacteria. Review of orders revealed the patient to be on meropenem and Tamiflu. ASSESSMENT AND PLAN: This is a 66-year-old female seen early this morning in the ICU with a history of congestive heart failure, alcoholic cardiomyopathy, diabetes, chronic obstructive lung disease, Hodgkin lymphoma, idiopathic thrombocytopenic purpura, history of alcohol abuse, and admitted now with sepsis secondary to systemic influenza A, concerned about underlying bacterial infection and now we will check on the culture results in a diabetic with chronic obstructive pulmonary disease, Hodgkin lymphoma, idiopathic thrombocytopenic purpura, on Tamiflu, would complete 5 days and we will check on the final culture results. The patient does have ESBL Klebsiella in the urine with 5 to 10 wbc's in the urine. Daniel Byrd MD
[2017-05-05] MEDS: Meropenem IV 1 gm in NS 50 ML IVPB SCH (21:08)
[2017-05-06] MEDS: Levalbuterol 1.25 MG/3 ML Inhal Soln UD IH SCH ×4 (02:45→20:00)
[2017-05-06] MEDS: Morphine 2 mg/ml ISec IVP PRN ×3 (03:31→20:18)
[2017-05-06] MEDS: Meropenem IV 1 gm in NS 50 ML IVPB SCH ×3 (06:55→22:34)
[2017-05-06] MEDS: Budesonide 0.5 mg/2 ml Inhal Susp UD IH SCH ×2 (07:27→20:00)
[2017-05-06 08:31] LABS: MEAN CELL VOLUME 99.7 fl (80.0-105.0); MEAN CORPUSCULAR HEMOGLOBIN 32.4 pg (25.0-35.0); MEAN CORPUSCULAR HGB CONC 32.5 g/dl (31.0-37.0); MEAN PLATELET VOLUME 9.7 fl (7.0-11.0); RBC 3.7 10^6/uL (3.5-6.1); RED CELL DISTRIBUTION WIDTH 20.9 % (11.5-14.5)
[2017-05-06 08:49] LABS: ALT/SGPT 16 U/L (7-56); AST/SGOT 17 U/L (14-36); BLOOD UREA NITROGEN 13 mg/dL (7-21); GFR AFRICAN-AMERICAN > 60; GFR NON-AFRICAN AMERICAN > 60
[2017-05-06] MEDS: Furosemide 40 mg/5 mL Oral Soln UD PO SCH (10:50)
--- NOTE | 2017-05-06 11:05 | PN ---
DATE: 05/06/2017 SUBJECTIVE: The patient is seen earlier this morning in room 128, bed 6. The patient has had an uneventful night. No fevers. No chills. She is comfortable. PHYSICAL EXAMINATION: VITAL SIGNS: Temperature is 97, blood pressure is 99/74, respiratory rate of 24, heart rate of 99. HEENT: Examination of HEENT is unremarkable. NECK: Supple. LUNGS: Have decreased breath sounds. HEART: Normal S1, S2. ABDOMEN: Soft, nontender. No organomegaly. No rebound. No guarding. No masses. LABORATORY EXAMINATION: Reveals a white count of 8000, hemoglobin of 12, platelets of 241. Coagulation is noted. Chemistries reveals a BUN of 13, creatinine of 0.4. Urinalysis is noted. Serology is positive. Microbiology reveals Klebsiella in the urine with ESBL. ASSESSMENT AND PLAN: This is a 66-year-old female who was seen earlier in the Intensive Care Unit, bed #6 with history of congestive heart failure, alcoholic cardiomyopathy, diabetes mellitus, chronic obstructive lung disease, Hodgkin's lymphoma, idiopathic thrombocytopenic purpura, history of alcohol abuse, admitted with sepsis secondary to systemic influenza A, concerned by the bacterial infection, currently now with extended-spectrum beta-lactamase Klebsiella in the urine as the source. The patient did have frequency on admission, although the urinalysis is not significant. Currently on day #2 of meropenem and we will complete a short course and we will repeat a urinalysis and urine culture this morning. Long-term prognosis is poor. Daniel Byrd MD
[2017-05-06 15:35] LABS: URINE BILIRUBIN NEGATIVE (NEGATIVE); URINE BLOOD NEGATIVE (NEGATIVE); URINE GLUCOSE (UA) NEGATIVE (NEGATIVE); URINE LEUKOCYTE ESTERASE NEGATIVE Leu/uL (NEGATIVE); URINE PROTEIN NEGATIVE mg/dL (<30 mg/dL); URINE UROBILINOGEN 0.2 E.U./dL (<1 E.U./dL)
[2017-05-06 15:36] LABS: URINE APPEARANCE CLEAR (CLEAR); URINE COLOR YELLOW (YELLOW)
--- NOTE | 2017-05-06 23:40 | PN ---
DATE: LOCATION: [facility], bed 5. SUBJECTIVE: The patient is feeling markedly better, sitting up in bed, talking, coherent. No complaints of shortness of breath. She is taking her medications regularly. Improvement noted since yesterday. PHYSICAL EXAMINATION: GENERAL: Resting comfortably. VITAL SIGNS: Stable, afebrile, pulse 76, respiratory rate 16, blood pressure 120/60, O2 saturation 99% on room air. HEENT: Normocephalic, atraumatic. NECK: No JVD. CARDIOVASCULAR: Regular rhythm. S1 and S2, without murmur, gallop or rub. LUNGS: Decreased breath sounds throughout. Minimal rhonchi. No wheezes. ABDOMEN: Soft. Bowel sounds normoactive. EXTREMITIES: Reveal no clubbing, cyanosis or edema. NEUROLOGIC: No focal findings. CLINICAL IMPRESSION: 1. Advanced chronic obstructive pulmonary disease. 2. Encephalopathy, improved. 3. Sepsis syndrome. 4. Advanced cardiomyopathy. PLAN: Continue vigorous pulmonary care, continue inhaled bronchodilators and corticosteroids. We will follow closely with you. Followup x-ray is ordered for the morning. Clifton Castelan MD
[2017-05-07] MEDS: Levalbuterol 1.25 MG/3 ML Inhal Soln UD IH SCH ×4 (02:35→20:15)
[2017-05-07] MEDS: Meropenem IV 1 gm in NS 50 ML IVPB SCH ×3 (06:37→22:03)
[2017-05-07] MEDS: Morphine 2 mg/ml ISec IVP PRN ×4 (06:38→22:04)
[2017-05-07] MEDS: Budesonide 0.5 mg/2 ml Inhal Susp UD IH SCH ×2 (07:47→20:15)
--- NOTE | 2017-05-07 09:03 | PN ---
DATE: 05/05/2017 PULMONARY PROGRESS NOTE LOCATION: Intensive Care Unit, 128, bed 6. SUBJECTIVE: Patient remains in the Intensive Care Unit, in no acute respiratory distress. She is having full conversations with the nurses. The chart has been reviewed and case discussed with Dr. Parker. We have also discussed with primary ICU nurse as well as the regulatory compliance engineer this morning. No additional changes were noted. Her chronic obstructive pulmonary disease is stable. In addition to this diagnoses, there are multiple other diagnoses including advanced alcoholic cardiomyopathy, altered mental status, coronary artery disease. Improvement is noted as stated above. PHYSICAL EXAMINATION: VITAL SIGNS: Stable. She remains afebrile. O2 saturation is 99% on supplemental oxygen, pulse 76, respiratory rate 18. HEENT: Normocephalic, atraumatic. No jugular venous distention. No lymphadenopathy. No bruit. No mass. CARDIOVASCULAR: Regular rhythm. S1 and S2 without murmur, gallop, or rub. LUNGS: Global decrease in breath sounds. Minimal rhonchi. No wheezes are appreciated. ABDOMEN: Soft. Bowel sounds normoactive without mass, guarding, rebound, or organomegaly. EXTREMITIES: Reveal no clubbing, cyanosis, or edema. There is no Homans' sign. SKIN: Shows no rash or excoriation. NEUROLOGIC: Mental status is slightly off, but there are no focal findings noted. LABORATORY FINDINGS: Chest x-ray done this morning shows no active infiltrate. Laboratory studies are noted. The white count remains elevated. No additional studies are noted this morning. CLINICAL IMPRESSION: 1. Improved encephalopathy. 2. Sepsis syndrome. 3. Chronic obstructive pulmonary disease, stable. 4. Advanced cardiomyopathy. 5. Electrolyte abnormalities. PLAN: Continue vigorous supportive care for COPD, make sure that oxygenation remains stable with ventilation remains good. Continue vigorous support with the other specialities and regulatory compliance engineer. Decrease corticosteroids as early as possible. Continue vigorous bronchodilator and cardiac intervention. We will follow closely with you and decide on the need for further intervention as required. Thank you for allowing us to participate in the care of this patient. Clifton Castelan MD
[2017-05-07] MEDS: Furosemide 40 mg/5 mL Oral Soln UD PO SCH (10:00)
--- NOTE | 2017-05-07 10:00 | PN ---
DATE: 05/07/2017 SUBJECTIVE: The patient appears comfortable this morning. She is not short of breath at rest. She does appear very weak. PHYSICAL EXAMINATION: VITAL SIGNS: Temperature is 97.8, pulse is 92, respirations 20, blood pressure 101/48. Oxygen saturation on nasal cannula is 94%. HEENT: Normocephalic, atraumatic. No JVD. CARDIOVASCULAR: Positive S1, S2. No S3 gallop. LUNGS: Decreased breath sounds at the bases. Less rhonchi. No wheezing. EXTREMITIES: The patient's right hand is less ecchymotic. Her legs reveal mild edema. There is no cyanosis or clubbing. Calves are nontender to palpation. GASTROINTESTINAL: Abdomen is soft, nontender, and nondistended. Bowel sounds are positive. SKIN: No acute rash. NEUROLOGIC: Limited at the present time. IMPRESSION: 1. Encephalopathy, weakness. 2. Sepsis syndrome. 3. Urinary tract infection. 4. Influenza A positivity. 5. Advanced chronic obstructive pulmonary disease. 6. Advanced cardiomyopathy. 7. Coronary artery disease. 8. Multiple electrolyte abnormalities--resolved. PLAN: The patient appears comfortable this morning. She is not short of breath at rest. She remains very weak appearing. I did discuss the case with the night nurse at length. The night nurse stated that the patient had an uneventful night. On physical exam, there is less bronchospasm noted. In addition, there is no significant alveolar-arterial gradient. I will continue the current nebulizer treatments and inhaled steroids for now. The patient remains on antibiotic therapy. Input by Dr. Byrd is noted. The temperatures have now fully resolved. The leukocytosis has also fully resolved. Clinical status of the patient is certainly improved from the initial hospital status. However, again, the overall status/prognosis for this patient is poor. All are aware. I will discuss the above with the entire ICU team in the next few moments. I will also discuss the above with the attending physician later this morning. Adam Parker MD [place]
--- NOTE | 2017-05-07 13:35 | CP.PCM.PN ---
Subjective - Date & Time of Evaluation Date of Evaluation: 05/07/17 Time of Evaluation: 10:20 - Subjective Subjective: Was not able to sleep well last night and feels tired this morning, no fevers. Objective - Vital Signs/Intake and Output Vital Signs (last 24 hours): Temp Pulse Resp BP Pulse Ox 97.8 F 97 H 23 101/48 L 83 L 05/07/17 04:00 05/07/17 06:00 05/07/17 06:00 05/07/17 07:00 05/07/17 07:00 Intake and Output: 05/07/17 05/07/17 06:59 18:59 Intake Total 200 Output Total 900 Balance -700 - Medications Medications: Current Medications Alprazolam (Xanax) 1 mg PO TID BELEM PRN Reason: Protocol Stop: 05/11/17 18:01 Last Admin: 05/06/17 17:23 Dose: 1 mg Budesonide (Pulmicort Respules) 0.5 mg IH [id number] [facility] Last Admin: 05/07/17 07:47 Dose: Not Given Dextrose (Dextrose 50% Inj) 50 ml IVP PRN PRN PRN Reason: Hypoglycemia Furosemide (Lasix) 40 mg PO DAILY [facility] Last Admin: 05/06/17 10:50 Dose: 40 mg Meropenem (Merrem Iv 1 Gm Premix) 50 mls @ 100 mls/hr IVPB Q8 BELEM PRN Reason: Protocol Stop: 05/14/17 22:01 Last Admin: 05/07/17 06:37 Dose: 100 mls/hr Levalbuterol HCl (Xopenex) 1.25 mg IH [id number] [facility] Last Admin: 05/07/17 07:47 Dose: Not Given Morphine Sulfate (Morphine) 2 mg IVP Q4H PRN PRN Reason: Pain, severe (8-10) Last Admin: 05/07/17 06:38 Dose: 2 mg Oseltamivir Phosphate (Tamiflu Cap) 75 mg PO BID BELEM PRN Reason: Protocol Stop: 05/08/17 19:15 Last Admin: 05/06/17 17:24 Dose: 75 mg - Labs Labs: 05/06/17 08:20 05/06/17 08:20 PT 14.4 SECONDS (9.4-12.5) H 05/05/17 08:38 INR 1.25 (0.93-1.08) H 05/05/17 08:38 APTT 38.5 Seconds (25.1-36.5) H 05/05/17 08:38 - Constitutional Appears: Chronically Ill - Head Exam Head Exam: NORMAL INSPECTION - ENT Exam ENT Exam: Mucous Membranes Moist - Neck Exam Neck Exam: absent: Meningismus - Respiratory Exam Respiratory Exam: Decreased Breath Sounds - Cardiovascular Exam Cardiovascular Exam: +S1, +S2 - GI/Abdominal Exam GI & Abdominal Exam: Soft. absent: Tenderness Additional comments: gusman catheter in place Assessment and Plan - Assessment and Plan (Free Text) Plan: Assessment Sepsis due to systemic viral illness with Influenza A, consider also Klebsiella UTI history of VDRF from poor responsiveness, on top of probable severe sepsis from HCAP, bilateral CHF with alcoholic cardiomyopathy DM COPD Hodgkin lymphoma ITP history of alcohol abuse Plan continue Tamiflu and should complete 5 days (day 4 today) continue Merrem (day 3) to complete 7-10 days - would recommend removal of Gusman catheter if feasible
--- NOTE | 2017-05-07 19:15 | CON ---
DATE: 05/03/2017 HISTORY OF PRESENT ILLNESS: The patient is a 66-year-old woman who presents with malaise. She was found to have the flu. 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 She also suffers from COPD. The patient has been in bed, is cachectic and has diffused weakness. Currently, she is awake, as alert as she can be without dyspnea. REVIEW OF SYSTEMS: Unavailable. PHYSICAL EXAMINATION: VITAL SIGNS: Blood pressure is 106/34, heart rate is in the 90s. NECK: Negative JVD. LUNGS: Decreased breath sounds. HEART: Reveal S1, S2. EXTREMITIES: Without edema. LABORATORY: BUN and creatinine are unremarkable. Hemoglobin is 12. ProBNP was not done. IMPRESSION: 1. 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 2. Chronic obstructive pulmonary disease. 3. Coronary artery disease. 4. Weakness. 5. Her respiratory status is as stable as it can be. PLAN: Given these findings, the patient can be transferred out of the ICU today to Med-Surg floor with work. Michael Schulte MD
[2017-05-08] MEDS: Morphine 2 mg/ml ISec IVP PRN ×3 (01:05→22:37)
[2017-05-08] MEDS: Levalbuterol 1.25 MG/3 ML Inhal Soln UD IH SCH ×4 (02:20→20:02)
[2017-05-08] MEDS: Meropenem IV 1 gm in NS 50 ML IVPB SCH ×3 (05:02→21:42)
[2017-05-08] MEDS: Budesonide 0.5 mg/2 ml Inhal Susp UD IH SCH ×2 (07:32→20:02)
[2017-05-08] MEDS: Furosemide 40 mg/5 mL Oral Soln UD PO SCH (09:28)
--- NOTE | 2017-05-08 10:46 | CP.PCM.PN ---
Subjective - Date & Time of Evaluation Date of Evaluation: 05/08/17 Time of Evaluation: 09:40 - Subjective Subjective: Patient complaining of more pain in the left hand and is discolored. No fevers. Objective - Vital Signs/Intake and Output Vital Signs (last 24 hours): Temp Pulse Resp BP Pulse Ox 98.8 F 100 H 22 100/55 L 89 L 05/07/17 20:00 05/08/17 02:00 05/08/17 01:07 05/08/17 01:00 05/08/17 01:07 Intake and Output: 05/07/17 05/08/17 18:59 06:59 Intake Total 300 Output Total 1150 Balance -850 - Medications Medications: Current Medications Alprazolam (Xanax) 1 mg PO TID EBLEM PRN Reason: Protocol Stop: 05/11/17 18:01 Last Admin: 05/07/17 18:03 Dose: 1 mg Budesonide (Pulmicort Respules) 0.5 mg IH [id number] [facility] Last Admin: 05/07/17 20:15 Dose: Not Given Dextrose (Dextrose 50% Inj) 50 ml IVP PRN PRN PRN Reason: Hypoglycemia Furosemide (Lasix) 40 mg PO DAILY [facility] Last Admin: 05/07/17 10:00 Dose: 40 mg Meropenem (Merrem Iv 1 Gm Premix) 50 mls @ 100 mls/hr IVPB Q8 BELEM PRN Reason: Protocol Stop: 05/14/17 22:01 Last Admin: 05/08/17 05:02 Dose: 100 mls/hr Levalbuterol HCl (Xopenex) 1.25 mg IH [id number] [facility] Last Admin: 05/08/17 02:20 Dose: Not Given Morphine Sulfate (Morphine) 2 mg IVP Q4H PRN PRN Reason: Pain, severe (8-10) Last Admin: 05/08/17 05:00 Dose: 2 mg Ondansetron HCl (Zofran Inj) 4 mg IVP Q8H PRN PRN Reason: Nausea/Vomiting Last Admin: 05/07/17 22:05 Dose: 4 mg Oseltamivir Phosphate (Tamiflu Cap) 75 mg PO BID BELEM PRN Reason: Protocol Stop: 05/08/17 19:15 Last Admin: 05/07/17 18:03 Dose: 75 mg - Labs Labs: 05/06/17 08:20 05/06/17 08:20 PT 14.4 SECONDS (9.4-12.5) H 05/05/17 08:38 INR 1.25 (0.93-1.08) H 05/05/17 08:38 APTT 38.5 Seconds (25.1-36.5) H 05/05/17 08:38 - Constitutional Appears: Other (in pain) - Head Exam Head Exam: NORMAL INSPECTION - ENT Exam ENT Exam: Mucous Membranes Moist - Neck Exam Neck Exam: absent: Meningismus - Respiratory Exam Respiratory Exam: Decreased Breath Sounds - Cardiovascular Exam Cardiovascular Exam: +S1, +S2 - GI/Abdominal Exam GI & Abdominal Exam: Soft. absent: Tenderness - Extremities Exam Additional comments: right hand with discoloration and marked swelling Assessment and Plan - Assessment and Plan (Free Text) Plan: Assessment Sepsis due to systemic viral illness with Influenza A, consider also Klebsiella UTI acute swelling of the right hand related to IV infiltration R/O venous thrombosis history of VDRF from poor responsiveness, on top of probable severe sepsis from HCAP, bilateral CHF with alcoholic cardiomyopathy DM COPD Hodgkin lymphoma ITP history of alcohol abuse Plan completed 5 days of Tamiflu continue Merrem (day 4) to complete 7-10 days - would recommend removal of Cota catheter if feasible would also add IV Vancomycin for the right hand swelling Dr. King has been notified and he had called Dr. Sweeney on consult for the right hand swelling will also do duplex scan of the right upper extremity to rule out DVT
--- NOTE | 2017-05-08 13:08 | CP.PCM.CON ---
History of Present Illness - History of Present Illness History of Present Illness: Surgery Consult Note: Reason for consult: Markedly edematous and discolored right hand and forearm 66 year old female with PMH of COPD, CHF with EF of 15%, chronic alcohol abuse, DM, right humerus fracture, hepatitis, hodgkins lymphoma, ITP, and depression, admitted for weakness, fatigue, flu, UTI. Pt had an IV access site placed in ICU 3 days ago, which infiltrated, with progressively worsening swelling, pain 5 /10, and erythema. Pt states that she is also unable to move her hand currently due to pain. Denies fever, chills, purulent drainage/oozing at the site, nausea , vomiting, leg swelling. 12 point ROS obtained and negative, except for HPI. PMH: COPD, CHF with EF of 15%, chronic alcohol abuse, DM, right humerus fracture , hodgkins lymphoma, ITP, hepatitis, and depression Surgical Hx: Left arm port-a-cath Family hx : Noncontributory Social hx: Chronic alcohol and tobacco use. No illicit drug use Medications: Reviewed, as per MAR Allergies: Diphenhydramine, Anesthesia, ASA Review of Systems - Review of Systems All systems: reviewed and no additional remarkable complaints except Review of Systems: as per HPI Past Patient History - Infectious Disease Hx of Infectious Diseases: None - Tetanus Immunizations Tetanus Immunization: Up to Date, Unknown - Past Medical History & Family History Past Medical History?: Yes - Past Social History Smoking Status: Former Smoker - CARDIAC Hx Cardiac Disorders: Yes (alcoholic cardiomyopathy) Hx Hypertension: Yes - PULMONARY Hx Chronic Obstructive Pulmonary Disease (COPD): Yes Hx Pneumonia: Yes - NEUROLOGICAL Hx Neurological Disorder: Yes (syncope ams) Hx Dizziness: Yes - HEENT Hx HEENT Problems: Yes (eyeglasses) Other/Comment: developes ulcers left eye on eye drops - RENAL Hx Chronic Kidney Disease: No - ENDOCRINE/METABOLIC Hx Diabetes Mellitus Type 2: Yes - HEMATOLOGICAL/ONCOLOGICAL Hx Cancer: Yes ([place]) - INTEGUMENTARY Hx Dermatological Problems: No (LEFT UPPER ARM IN AND OUT OF PORT.) - MUSCULOSKELETAL/RHEUMATOLOGICAL Hx Back Pain: Yes Hx Falls: Yes - GASTROINTESTINAL Hx Gastrointestinal Disorders: Yes (weight loss appetite changes) - GENITOURINARY/GYNECOLOGICAL Hx Urinary Tract Infection: Yes Other/Comment: + urinary catheter - PSYCHIATRIC Hx Psychophysiologic Disorder: Yes Hx Anxiety: Yes Hx Bipolar Disorder: Yes Hx Depression: Yes Hx Substance Use: No Other/Comment: alcohol abuse - SURGICAL HISTORY Hx Mastectomy: No - ANESTHESIA Hx Anesthesia: Yes Hx Anesthesia Reactions: Yes (SEE ALLERGIES) Hx Malignant Hyperthermia: No Meds Allergies/Adverse Reactions: Allergies Allergy/AdvReac Type Severity Reaction Status Date / Time diphenhydramine HCl Allergy SHORTNESS Verified 01/13/17 20:25 [From Benadryl] OF BREATH aspirin AdvReac SHORTNESS Verified 02/11/17 11:12 OF BREATH anesthesia Allergy Intermediate RASH Uncoded 01/13/17 20:25 anesthetic agents Allergy Mild ANAPHYLAXIS Uncoded 02/04/17 09:33 - Medications Medications: Current Medications Alprazolam (Xanax) 1 mg PO TID BELEM PRN Reason: Protocol Stop: 05/11/17 18:01 Last Admin: 05/08/17 09:30 Dose: 1 mg Budesonide (Pulmicort Respules) 0.5 mg IH [id number] [facility] Last Admin: 05/08/17 07:32 Dose: Not Given Dextrose (Dextrose 50% Inj) 50 ml IVP PRN PRN PRN Reason: Hypoglycemia Furosemide (Lasix) 40 mg PO DAILY [facility] Last Admin: 05/08/17 09:28 Dose: Not Given Meropenem (Merrem Iv 1 Gm Premix) 50 mls @ 100 mls/hr IVPB Q8 BELEM PRN Reason: Protocol Stop: 05/14/17 22:01 Last Admin: 05/08/17 05:02 Dose: 100 mls/hr Vancomycin HCl (Vancomycin 1gm) 1 gm in 250 mls @ 167 mls/hr IVPB Q12H BELEM PRN Reason: Protocol Levalbuterol HCl (Xopenex) 1.25 mg IH [id number] [facility] Last Admin: 05/08/17 07:33 Dose: Not Given Morphine Sulfate (Morphine) 2 mg IVP Q4H PRN PRN Reason: Pain, severe (8-10) Last Admin: 05/08/17 05:00 Dose: 2 mg Oseltamivir Phosphate (Tamiflu Cap) 75 mg PO BID [facility] PRN Reason: Protocol Stop: 05/08/17 19:15 Last Admin: 05/08/17 09:31 Dose: 75 mg Physical Exam - Constitutional Appears: Non-toxic, No Acute Distress, Older Than Stated Age - Head Exam Head Exam: ATRAUMATIC, NORMOCEPHALIC - Eye Exam Eye Exam: EOMI, PERRL. absent: Conjunctival injection, Nystagmus, Scleral icterus Pupil Exam: NORMAL ACCOMODATION, PERRL. absent: Fixed, Irregular, Unequal - ENT Exam ENT Exam: Mucous Membranes Moist - Neck Exam Neck exam: Positive for: Normal Inspection - Respiratory Exam Respiratory Exam: Rales. absent: Accessory Muscle Use - Cardiovascular Exam Cardiovascular Exam: RRR, +S1, +S2. absent: Systolic Murmur - GI/Abdominal Exam GI & Abdominal Exam: Normal Bowel Sounds, Soft. absent: Firm, Guarding, Rebound , Tenderness - Extremities Exam Extremities exam: Positive for: normal capillary refill, tenderness Additional comments: Right hand blanchable erythema, tense to touch, swelling, pain. capillary refill <2 secs. 2+ radial pulse. Sensation intact. Pt able to wiggle her fingers , but motor strength decreased due to pain. - Back Exam Back exam: NORMAL INSPECTION - Neurological Exam Neurological exam: Alert, Oriented x3 - Psychiatric Exam Psychiatric exam: Anxious - Skin Skin Exam: Dry, Warm Results - Vital Signs Recent Vital Signs: Last Vital Signs Temp 98.8 F 05/07/17 20:00 Pulse 101 H 05/08/17 12:00 Resp 25 H 05/08/17 12:00 BP 111/60 05/08/17 12:00 Pulse Ox 90 L 05/08/17 12:00 - Labs Result Diagrams: 05/06/17 08:20 05/06/17 08:20 Labs: Laboratory Results - last 24 hr 05/04/17 05/07/17 05/07/17 15:22 11:39 17:48 POC Glucose (mg/dL) 100 115 H Total Creatine Kinase Crossmatch See Detail 05/07/17 05/08/17 05/08/17 23:36 06:01 11:00 POC Glucose (mg/dL) 103 110 Total Creatine Kinase 35 Crossmatch Assessment & Plan - Assessment and Plan (Free Text) Assessment: 66 year old female with PMH COPD, CHF with EF of 15%, chronic alcohol abuse, DM , right humerus fracture, presents for acute renal failure, klebseilla pneumoniae UTI, found to have developed right hand infiltration s/p IV insertion 3 days ago: - r/o compartment syndrome/DVT - f/u right arm ultrasound - Cool compress to site/elevate arm - Avoid IV at the site - Further recs per Dr Sweeney. - Date & Time Date: 05/08/17 Time: 13:08
--- NOTE | 2017-05-08 13:13 | PN ---
DATE: 05/08/2017 PULMONARY NOTE SUBJECTIVE: The patient appears comfortable this morning. She is not short of breath at rest. She remains very weak appearing. OBJECTIVE VITAL SIGNS: Last temperature recorded is 98.8, pulse is 99, respirations 18/20, blood pressure 107/49. Oxygen saturation on nasal cannula is 93%. HEENT: Normocephalic, atraumatic. NECK: No JVD. CARDIOVASCULAR: Positive S1, S2. No S3 gallop. LUNGS: Decreased breath sounds at the bases. Minimal/less rhonchi. No wheezing. EXTREMITIES: The right hand remains ecchymotic and swollen. Her legs reveal mild edema. No cyanosis or clubbing. Calves are nontender to palpation. GASTROINTESTINAL: Abdomen is soft, nontender and nondistended. Bowel sounds are positive. SKIN: No acute rash. NEUROLOGIC: Exam limited at the present time. IMPRESSION 1. Encephalopathy, weakness. 2. Sepsis syndrome. 3. Urinary tract infection. 4. Influenza A positivity. 5. Advanced chronic obstructive pulmonary disease. 6. Advanced cardiomyopathy. 7. Coronary artery disease. PLAN: The patient appears comfortable this morning. She is not short of breath at rest. She does remain very weak appearing. I did discuss the case with the night nurse at length. The night nurse stated the patient had an uneventful night. On physical exam, there is less bronchospasm noted. In addition, there is no significant alveolar-arterial gradient. I will continue with the current nebulizer treatments and inhaled steroids for now. The patient also remains on aspiration precautions. I would continue with the antibiotic coverage as per Infectious Disease. Temperatures have resolved. The leukocytosis has also resolved. The clinical status of the patient is certainly improved - compared to the initial presentation. However, the overall status/prognosis for this patient remains poor. All are aware. I will discuss the above with Dr. King. Adam Parker MD [place]
[2017-05-08] MEDS ORDERED: Morphine 2 mg/ml ISec SC PRN (14:15)
[2017-05-08] MEDS: Vancomycin 1gm in NS 250ml 1 GM/250 ML BAG IVPB SCH ×3 (17:34→23:01)
--- NOTE | 2017-05-08 17:52 | US ---
PROCEDURE: Right upper extremity venous US CLINICAL HISTORY: Arm pain and swelling Evaluate for deep venous thrombosis. PHYSICIAN(S): Michael Rush M.D FINDINGS: The exam is limited by portable technique and the patient's inability to cooperate. The visualized rightinternal jugular vein is sonographically normal and compressible. No evidence of obstruction or thrombus is seen. The visualized segments of the right subclavian vein are patent with normal waveforms. No sonographic evidence of obstruction or thrombosis is seen. The visualized deep venous system of the proximal right upper extremity is sonographically normal and compressible. IMPRESSION: 1. No sonographic evidence for deep venous thrombosis in the visualized segments of the right upper extremity. 2. Limited study
--- NOTE | 2017-05-08 20:42 | PN ---
DATE: 05/08/2017 SUBJECTIVE: The patient remains tired and lethargic. Her right upper extremity is on the warm compresses. PHYSICAL EXAMINATION: VITAL SIGNS: Blood pressure is 111/60, heart rate is in the 90s. NECK: Negative JVD. LUNGS: Decreased breath sounds bilaterally. HEART: Reveals S1, S2. EXTREMITIES: Without edema. LABORATORY DATA: Hemoglobin is 12. Chemistries: Glucose is 110. Ultrasound of the right upper extremity is pending. IMPRESSION: 1. End-stage dilated cardiomyopathy. 2. Coronary artery disease. 3. Chronic obstructive pulmonary disease. 4. History of alcoholism. 5. Swelling in the right upper extremity, being followed by Surgery. PLAN: The patient has poor prognosis. However, she is maintaining her blood pressure and is out of congestive heart failure. Michael Schulte MD
[2017-05-09] MEDS: Levalbuterol 1.25 MG/3 ML Inhal Soln UD IH SCH ×5 (01:30→20:30)
[2017-05-09] MEDS: Morphine 2 mg/ml ISec IVP PRN ×4 (02:14→21:34)
[2017-05-09] MEDS: Meropenem IV 1 gm in NS 50 ML IVPB SCH ×3 (05:47→21:25)
--- NOTE | 2017-05-09 07:45 | CP.PCM.PN ---
Subjective - Date & Time of Evaluation Date of Evaluation: 05/09/17 Time of Evaluation: 07:38 - Subjective Subjective: Surgery Progress Note: Patient seen and examined at bedside. No acute events overnight. Pt still reports ongoing pain and swelling of right hand and arm. Denies fever, chills, nausea, vomiting, abdominal pain. Objective - Vital Signs/Intake and Output Vital Signs (last 24 hours): Temp Pulse Resp BP Pulse Ox 98.8 F 101 H 18 106/77 76 L 05/07/17 20:00 05/08/17 18:00 05/08/17 15:00 05/08/17 17:00 05/08/17 17:00 Intake and Output: 05/09/17 05/09/17 06:59 18:59 Intake Total 660 Output Total 250 Balance 410 - Medications Medications: Current Medications Acetaminophen (Tylenol 325mg Tab) 650 mg PO Q6H PRN PRN Reason: Fever >100.4 F Alprazolam (Xanax) 1 mg PO TID BELEM PRN Reason: Protocol Stop: 05/11/17 18:01 Last Admin: 05/08/17 17:34 Dose: 1 mg Budesonide (Pulmicort Respules) [id number] [facility] Last Admin: 05/08/17 20:02 Dose: 0.5 mg Dextrose (Dextrose 50% Inj) 50 ml IVP PRN PRN PRN Reason: Hypoglycemia Furosemide (Lasix) [address] [facility] Last Admin: 05/08/17 09:28 Dose: Not Given Meropenem (Merrem Iv 1 Gm Premix) 50 mls @ 100 mls/hr IVPB Q8 BELEM PRN Reason: Protocol Stop: 05/14/17 22:01 Last Admin: 05/09/17 05:47 Dose: 100 mls/hr Vancomycin HCl (Vancomycin 1gm) 1 gm in 250 mls @ 167 mls/hr IVPB Q12H BELEM PRN Reason: Protocol Last Admin: 05/08/17 23:01 Dose: 167 mls/hr Levalbuterol HCl (Xopenex) 1.[id number] [facility] Last Admin: 05/09/17 01:30 Dose: Not Given Morphine Sulfate (Morphine) 2 mg IVP Q4H PRN PRN Reason: Pain, severe (8-10) Last Admin: 05/09/17 06:24 Dose: 2 mg - Labs Labs: 05/06/17 08:20 05/06/17 08:20 PT 14.4 SECONDS (9.4-12.5) H 05/05/17 08:38 INR 1.25 (0.93-1.08) H 05/05/17 08:38 APTT 38.5 Seconds (25.1-36.5) H 05/05/17 08:38 - Additional Findings Additional findings: - Constitutional Appears: Non-toxic, No Acute Distress, Older Than Stated Age - Head Exam Head Exam: ATRAUMATIC, NORMOCEPHALIC - Eye Exam Eye Exam: EOMI, PERRL. absent: Conjunctival injection, Nystagmus, Scleral icterus Pupil Exam: NORMAL ACCOMODATION, PERRL. absent: Fixed, Irregular, Unequal - ENT Exam ENT Exam: Mucous Membranes Moist - Neck Exam Neck exam: Positive for: Normal Inspection - Respiratory Exam Respiratory Exam: Rales. absent: Accessory Muscle Use - Cardiovascular Exam Cardiovascular Exam: RRR, +S1, +S2. absent: Systolic Murmur - GI/Abdominal Exam GI & Abdominal Exam: Normal Bowel Sounds, Soft. absent: Firm, Guarding, Rebound , Tenderness - Extremities Exam Extremities exam: Positive for: normal capillary refill, tenderness Additional comments: Right hand blanchable erythema, tense to touch, swelling. capillary refill <2 secs. 2+ radial pulse. Sensation intact. Pt able to wiggle her fingers, but motor strength decreased due to pain. - Back Exam Back exam: NORMAL INSPECTION - Neurological Exam Neurological exam: Alert, Oriented x3 - Psychiatric Exam Psychiatric exam: Anxious - Skin Skin Exam: Dry, Warm Assessment and Plan - Assessment and Plan (Free Text) Assessment: 66 year old female with PMH COPD, CHF with EF of 15%, chronic alcohol abuse, DM , right humerus fracture, presents for acute renal failure, klebseilla pneumoniae UTI, found to have developed right hand infiltration s/p IV insertion : - right arm ultrasound shows no DVT - Cool compress to site/elevate arm - Avoid IV at the site - Further recs per Dr Sweeney
[2017-05-09] MEDS: Budesonide 0.5 mg/2 ml Inhal Susp UD IH SCH ×2 (09:00→20:30)
--- NOTE | 2017-05-09 09:16 | PN ---
DATE: SUBJECTIVE: The patient is awake and alert this morning. She appears comfortable. She is not short of breath at rest. OBJECTIVE VITAL SIGNS: Last temperature recorded is 98.8, pulse this morning approximately 100, respiratory rate 18, blood pressure 106/77. Oxygen saturation on nasal cannula is 93%. HEENT: Normocephalic, atraumatic. NECK: No JVD. CARDIOVASCULAR: Positive S1, S2. No S3 gallop. LUNGS: Decreased breath sounds at the bases. Minimal/less rhonchi. No wheezing. EXTREMITIES: The right hand remains ecchymotic and swollen. There is mild edema in the legs. No cyanosis or clubbing. Calves are nontender to palpation. GASTROINTESTINAL: Abdomen is soft, nontender and nondistended. Bowel sounds are positive. SKIN: No acute rash. NEUROLOGIC: Exam limited at the present time. IMPRESSION 1. Encephalopathy, weakness. 2. Sepsis syndrome. 3. Urinary tract infection. 4. Influenza A positivity. 5. Advanced chronic obstructive pulmonary disease. 6. Advanced cardiomyopathy. 7. Coronary artery disease. PLAN: The patient appears comfortable this morning. She is not short of breath at rest. She remains very weak appearing. I did discuss the case with the night nurse at length. The night nurse stated that the patient had an uneventful night. The night nurse also stated that a surgical consultation with Dr. Sweeney has been ordered - regarding the patient's right hand. On physical exam, there is less bronchospasm noted. I will continue with the current nebulizer treatments and inhaled steroids for now. I will also continue with the aspiration precautions. The patient remains on antibiotic therapy - as per Infectious Disease. Input by Dr. Ray is noted. Input by Cardiology (Dr. Schulte) is also noted. Clinical status of the patient is certainly improved - compared to the initial presentation. However, again, the future status/prognosis for this patient is poor. All are aware. I will discuss the above with the attending physician. Adam Parker MD [place]
[2017-05-09] MEDS: Furosemide 40 mg/5 mL Oral Soln UD PO SCH (09:57)
[2017-05-09] MEDS: Vancomycin 1gm in NS 250ml 1 GM/250 ML BAG IVPB SCH ×2 (09:58→23:18)
--- NOTE | 2017-05-09 10:21 | PN ---
DATE: 05/08/2017 SUBJECTIVE: The patient was seen this Sunday evening in room 565, bed 1. She was just transferred up from Intensive Care and is awake, alert and in good spirits. Much improved from when I last saw her on admission on . She has been seen daily in ICU by Dr. Baljeet King as well as the used car manager team and consultants called. She is clinically improved. Her right hand suffered an injury of IV infiltration. It is swollen, red, but there are good pulses present. I explained to her the importance of segmental elevation such as the fingers are higher than the wrist, the wrist is higher than the elbow, the elbow higher than the shoulder. This should result in dramatic improvement. Of course, this is complicated by the fact that she has a chronic fracture with loose separation of the midshaft humerus on that right side. PHYSICAL EXAMINATION: GENERAL: Otherwise, on exam, the patient is awake and alert, answers appropriately. LUNGS: Show good aeration, right and left. HEART: Regular, not tachycardic. EXTREMITIES: Thin and frail. The explanation of the right upper extremity as noted above. IMPRESSION: Urinary tract infection, sepsis, suspected pneumonia, electrolyte imbalance, intravenous infiltration of the right hand, alcoholic cardiomyopathy, cirrhosis, chronic obstructive pulmonary disease, low ejection fraction at 15%. PLAN: Continue antibiotics. Elevation of the right hand. Warm compresses. Tripp King MD [facility]PITALJhonny
--- NOTE | 2017-05-09 12:34 | RAD ---
PROCEDURE: Radiographs of the Right Forearm HISTORY: swelling COMPARISON: None available. TECHNIQUE: Frontal and lateral views obtained. FINDINGS: BONES: No acute radial or ulnar fracture. Old fracture right humerus identified on on serial prior studies including 01/24/2016 JOINT SPACES: Unremarkable. OTHER FINDINGS: None. IMPRESSION: Unremarkable radiographs of the right forearm.
--- NOTE | 2017-05-09 12:35 | RAD ---
PROCEDURE: Right Hand Radiographs. HISTORY: swelling COMPARISON: None. FINDINGS: BONES: Normal. No fracture. JOINTS: Normal. No osteoarthritic changes. SOFT TISSUES: Diffuse soft tissue swelling about the hand and wrist. OTHER FINDINGS: None. IMPRESSION: Soft tissue swelling without acute articular or osseous abnormality.
--- NOTE | 2017-05-09 12:48 | PN ---
DATE: 05/09/2017 CARDIOLOGY FOLLOWUP SUBJECTIVE: The patient is awake, alert. PHYSICAL EXAMINATION: VITAL SIGNS: Blood pressure is 100 systolic, heart rate is in the 80s to 90s. NECK: Negative JVD. LUNGS: Without rales. HEART: Reveals S1, S2. EXTREMITIES: Without edema. The right upper extremity edema is improving. LABORATORY DATA: Hemoglobin is 12. Chemistries: Creatinine is 0.04, which has not been measured in a couple of days. Glucose is 110. IMPRESSION: 1. End-stage dilated cardiomyopathy. 2. History of alcoholism. 3. Chronic obstructive pulmonary disease. 4. Respiratory failure, which is now improved. 5. Infiltration of the right upper extremity with the IV, which is now improving. PLAN: Given these findings, the patient hemodynamically is much improved. We will continue heat on the right upper extremity with continued surgical followup. Michael Schulte MD
--- NOTE | 2017-05-09 15:03 | CP.PCM.PN ---
Subjective - Date & Time of Evaluation Date of Evaluation: 05/09/17 Time of Evaluation: 11:35 - Subjective Subjective: Still with swollen right hand, no fevers, still with pain on the right hand. Objective - Vital Signs/Intake and Output Vital Signs (last 24 hours): Temp Pulse Resp BP Pulse Ox 98.8 F 86 20 120/52 L 91 L 05/09/17 08:26 05/09/17 08:26 05/09/17 08:26 05/09/17 08:26 05/09/17 08:26 Intake and Output: 05/09/17 05/09/17 06:59 18:59 Intake Total 660 Output Total 250 Balance 410 - Medications Medications: Current Medications Acetaminophen (Tylenol 325mg Tab) 650 mg PO Q6H PRN PRN Reason: Fever >100.4 F Alprazolam (Xanax) 1 mg PO TID BELEM PRN Reason: Protocol Stop: 05/11/17 18:01 Last Admin: 05/08/17 17:34 Dose: 1 mg Budesonide (Pulmicort Respules) 0.5 mg IH [id number] [facility] Last Admin: 05/08/17 20:02 Dose: 0.5 mg Dextrose (Dextrose 50% Inj) 50 ml IVP PRN PRN PRN Reason: Hypoglycemia Furosemide (Lasix) 40 mg PO DAILY [facility] Last Admin: 05/08/17 09:28 Dose: Not Given Meropenem (Merrem Iv 1 Gm Premix) 50 mls @ 100 mls/hr IVPB Q8 BELEM PRN Reason: Protocol Stop: 05/14/17 22:01 Last Admin: 05/09/17 05:47 Dose: 100 mls/hr Vancomycin HCl (Vancomycin 1gm) 1 gm in 250 mls @ 167 mls/hr IVPB Q12H BELEM PRN Reason: Protocol Last Admin: 05/08/17 23:01 Dose: 167 mls/hr Levalbuterol HCl (Xopenex) 1.25 mg IH [id number] [facility] Last Admin: 05/09/17 01:30 Dose: Not Given Morphine Sulfate (Morphine) 2 mg IVP Q4H PRN PRN Reason: Pain, severe (8-10) Last Admin: 05/09/17 06:24 Dose: 2 mg - Labs Labs: 05/06/17 08:20 05/06/17 08:20 PT 14.4 SECONDS (9.4-12.5) H 05/05/17 08:38 INR 1.25 (0.93-1.08) H 05/05/17 08:38 APTT 38.5 Seconds (25.1-36.5) H 05/05/17 08:38 - Constitutional Appears: Chronically Ill - Head Exam Head Exam: NORMAL INSPECTION - ENT Exam ENT Exam: Mucous Membranes Moist - Neck Exam Neck Exam: absent: Meningismus - Respiratory Exam Respiratory Exam: Decreased Breath Sounds - Cardiovascular Exam Cardiovascular Exam: +S1, +S2 - GI/Abdominal Exam GI & Abdominal Exam: Soft. absent: Tenderness - Extremities Exam Additional comments: right hand with discoloration and swelling Assessment and Plan - Assessment and Plan (Free Text) Plan: Assessment Sepsis due to systemic viral illness with Influenza A (S/P treatment), consider also Klebsiella UTI acute swelling of the right hand related to IV infiltration history of VDRF from poor responsiveness, on top of probable severe sepsis from HCAP, bilateral CHF with alcoholic cardiomyopathy DM COPD Hodgkin lymphoma ITP history of alcohol abuse Plan completed 5 days of Tamiflu continue Merrem (day 5) to complete 7-10 days - would recommend removal of Cota catheter if feasible continue IV Vancomycin day 2 for the right hand swelling Surgery following right hand swelling duplex scan of the right upper extremity does not show DVT
[2017-05-09] MEDS ORDERED: Silver Sulfadiazine 1% Cream (25 gm) TP SCH (16:30)
[2017-05-10] MEDS: Levalbuterol 1.25 MG/3 ML Inhal Soln UD IH SCH ×5 (01:08→21:35)
[2017-05-10] MEDS: Meropenem IV 1 gm in NS 50 ML IVPB SCH ×3 (05:34→21:19)
[2017-05-10] MEDS: Morphine 2 mg/ml ISec IVP PRN ×4 (06:42→21:19)
[2017-05-10] MEDS: Budesonide 0.5 mg/2 ml Inhal Susp UD IH SCH ×3 (08:14→21:34)
[2017-05-10] MEDS: Vancomycin 1gm in NS 250ml 1 GM/250 ML BAG IVPB SCH ×2 (09:50→21:45)
[2017-05-10] MEDS: Furosemide 40 mg/5 mL Oral Soln UD PO SCH (09:50)
--- NOTE | 2017-05-10 11:44 | CP.PCM.PN ---
Subjective - Date & Time of Evaluation Date of Evaluation: 05/10/17 Time of Evaluation: 11:41 - Subjective Subjective: Surgery Pt s&e. Dressing changed this AM. c/o R arm pain. Reports decreased swelling with miguel wrap. Objective - Vital Signs/Intake and Output Vital Signs (last 24 hours): Temp Pulse Resp BP Pulse Ox 98.8 F 86 18 90/49 L 92 L 05/10/17 07:30 05/10/17 07:30 05/10/17 07:30 05/10/17 07:30 05/10/17 07:30 Intake and Output: 05/10/17 05/10/17 06:59 18:59 Intake Total 1260 Output Total 350 Balance 910 - Medications Medications: Current Medications Acetaminophen (Tylenol 325mg Tab) 650 mg PO Q6H PRN PRN Reason: Fever >100.4 F Alprazolam (Xanax) 1 mg PO TID BELEM PRN Reason: Protocol Stop: 05/11/17 18:01 Last Admin: 05/09/17 18:34 Dose: 1 mg Budesonide (Pulmicort Respules) 0.5 mg IH [id number] [facility] Last Admin: 05/10/17 08:14 Dose: Not Given Dextrose (Dextrose 50% Inj) 50 ml IVP PRN PRN PRN Reason: Hypoglycemia Furosemide (Lasix) 40 mg PO DAILY [facility] Last Admin: 05/09/17 09:57 Dose: Not Given Meropenem (Merrem Iv 1 Gm Premix) 50 mls @ 100 mls/hr IVPB Q8 BELEM PRN Reason: Protocol Stop: 05/14/17 22:01 Last Admin: 05/10/17 05:34 Dose: 100 mls/hr Vancomycin HCl (Vancomycin 1gm) 1 gm in 250 mls @ 167 mls/hr IVPB Q12H BELEM PRN Reason: Protocol Last Admin: 05/09/17 23:18 Dose: 167 mls/hr Levalbuterol HCl (Xopenex) 1.25 mg IH [id number] [facility] Last Admin: 05/10/17 08:14 Dose: Not Given Morphine Sulfate (Morphine) 2 mg IVP Q4H PRN PRN Reason: Pain, severe (8-10) Last Admin: 05/10/17 06:42 Dose: 2 mg Ondansetron HCl (Zofran Inj) 4 mg IVP Q6H PRN PRN Reason: Nausea/Vomiting Silver Sulfadiazine (Silvadene 1% 25 Gm) 0 gm TP DAILY BELEM - Labs Labs: 05/06/17 08:20 05/06/17 08:20 PT 14.4 SECONDS (9.4-12.5) H 05/05/17 08:38 INR 1.25 (0.93-1.08) H 05/05/17 08:38 APTT 38.5 Seconds (25.1-36.5) H 05/05/17 08:38 - Constitutional Appears: No Acute Distress - Head Exam Head Exam: ATRAUMATIC, NORMAL INSPECTION, NORMOCEPHALIC - Eye Exam Eye Exam: EOMI, Normal appearance, PERRL Pupil Exam: NORMAL ACCOMODATION, PERRL - ENT Exam ENT Exam: Mucous Membranes Moist, Normal Exam - Neck Exam Neck Exam: Full ROM, Normal Inspection. absent: Lymphadenopathy - Respiratory Exam Respiratory Exam: Clear to Ausculation Bilateral, NORMAL BREATHING PATTERN - Cardiovascular Exam Cardiovascular Exam: REGULAR RHYTHM, +S1, +S2. absent: Murmur - GI/Abdominal Exam GI & Abdominal Exam: Soft, Normal Bowel Sounds. absent: Distended, Tenderness - Extremities Exam Extremities Exam: Tenderness. absent: Full ROM, Normal Inspection Additional comments: R humorous fracture. R hand and wrist eccymosis and swelling. Dressing in place. No bleeding. Decreased ROM. pulses intact. senstation intact. - Back Exam Back Exam: NORMAL INSPECTION - Neurological Exam Neurological Exam: Alert, Awake, CN II-XII Intact, Oriented x3 - Psychiatric Exam Psychiatric exam: Normal Affect, Normal Mood - Skin Skin Exam: Erythema, Intact, Warm Assessment and Plan - Assessment and Plan (Free Text) Assessment: 66 year old female with PMH COPD, CHF with EF of 15%, chronic alcohol abuse, DM , right humerus fracture, presents for acute renal failure, klebseilla pneumoniae UTI, found to have developed right hand infiltration s/p IV insertion : - right arm ultrasound shows no DVT -Xray hand/wrist shows soft tissue swelling. No fx - Cool compress to site/elevate arm - Avoid IV at the site -AKASH Sweeney
--- NOTE | 2017-05-10 16:21 | CP.PCM.PN ---
Subjective - Date & Time of Evaluation Date of Evaluation: 05/10/17 Time of Evaluation: 12:15 - Subjective Subjective: Patient still having pain on the right hand and swelling but slowly improving with bandaging. No fevers. Objective - Vital Signs/Intake and Output Vital Signs (last 24 hours): Temp Pulse Resp BP Pulse Ox 98.8 F 86 18 90/49 L 92 L 05/10/17 07:30 05/10/17 07:30 05/10/17 07:30 05/10/17 07:30 05/10/17 07:30 Intake and Output: 05/10/17 05/10/17 06:59 18:59 Intake Total 1260 Output Total 350 Balance 910 - Medications Medications: Current Medications Acetaminophen (Tylenol 325mg Tab) 650 mg PO Q6H PRN PRN Reason: Fever >100.4 F Alprazolam (Xanax) 1 mg PO TID BELEM PRN Reason: Protocol Stop: 05/11/17 18:01 Last Admin: 05/09/17 18:34 Dose: 1 mg Budesonide (Pulmicort Respules) 0.5 mg IH [id number] [facility] Last Admin: 05/10/17 08:14 Dose: Not Given Dextrose (Dextrose 50% Inj) 50 ml IVP PRN PRN PRN Reason: Hypoglycemia Furosemide (Lasix) 40 mg PO DAILY [facility] Last Admin: 05/09/17 09:57 Dose: Not Given Meropenem (Merrem Iv 1 Gm Premix) 50 mls @ 100 mls/hr IVPB Q8 BELEM PRN Reason: Protocol Stop: 05/14/17 22:01 Last Admin: 05/10/17 05:34 Dose: 100 mls/hr Vancomycin HCl (Vancomycin 1gm) 1 gm in 250 mls @ 167 mls/hr IVPB Q12H BELEM PRN Reason: Protocol Last Admin: 05/09/17 23:18 Dose: 167 mls/hr Levalbuterol HCl (Xopenex) 1.25 mg IH [id number] [facility] Last Admin: 05/10/17 08:14 Dose: Not Given Morphine Sulfate (Morphine) 2 mg IVP Q4H PRN PRN Reason: Pain, severe (8-10) Last Admin: 05/10/17 06:42 Dose: 2 mg Ondansetron HCl (Zofran Inj) 4 mg IVP Q6H PRN PRN Reason: Nausea/Vomiting Silver Sulfadiazine (Silvadene 1% 25 Gm) 0 gm TP DAILY [facility]LE[facility] - Labs Labs: 05/06/17 08:20 05/06/17 08:20 PT 14.4 SECONDS (9.4-12.5) H 05/05/17 08:38 INR 1.25 (0.93-1.08) H 05/05/17 08:38 APTT 38.5 Seconds (25.1-36.5) H 05/05/17 08:38 - Constitutional Appears: Chronically Ill - Head Exam Head Exam: NORMAL INSPECTION - ENT Exam ENT Exam: Mucous Membranes Moist - Neck Exam Neck Exam: absent: Meningismus - Respiratory Exam Respiratory Exam: Decreased Breath Sounds - Cardiovascular Exam Cardiovascular Exam: +S1, +S2 - GI/Abdominal Exam GI & Abdominal Exam: Soft. absent: Tenderness - Extremities Exam Additional comments: right hand with bandages in place, still with discoloration of the fingers Assessment and Plan - Assessment and Plan (Free Text) Plan: Assessment Sepsis due to systemic viral illness with Influenza A (S/P treatment), consider also Klebsiella UTI acute swelling of the right hand related to IV infiltration history of VDRF from poor responsiveness, on top of probable severe sepsis from HCAP, bilateral CHF with alcoholic cardiomyopathy DM COPD Hodgkin lymphoma ITP history of alcohol abuse Plan completed 5 days of Tamiflu continue Merrem (day 6) to complete 7-10 days - would recommend removal of Cota catheter if feasible continue IV Vancomycin day 3 for the right hand swelling Surgery following right hand swelling duplex scan of the right upper extremity does not show DVT
--- NOTE | 2017-05-10 17:20 | PN ---
DATE: 05/06/2017 SUBJECTIVE: The patient is a 66-year-old female with a history of alcoholic cardiomyopathy with an ejection fraction of approximately 15%, history of congestive heart failure, myocardial infarction, history of alcoholic bone marrow suppression with a history of pancytopenia. She also has a nonhealing fracture of the right humerus with separation at the midshaft. She was admitted into the intensive care unit with urinary tract infection, sepsis, and hyperkalemia. She was found to have Klebsiella species in the urine. She is being treated with Merrem. When seen today, she is awake, alert, and oriented. She is feeling well complaining of pain in the back of her right hand. This had been the site of an IV infiltration. X-rays were done and negative for fracture. OBJECTIVE: LUNGS: Clear anteriorly. HEART: Regular. ABDOMEN: Soft and nontender. VITAL SIGNS: Her blood pressure is 116/50. LABORATORY STUDIES: Reveal a white cell count of 8, hemoglobin and hematocrit are 12 and 36.9. This is status post transfusion of packed red blood cells. Sodium is 141, potassium 4. Blood urea nitrogen is 13, creatinine is 0.4. We are continuing with the antibiotics. We will be asking Dr. Sweeney to evaluate the hand for its swelling. We will continue to follow the patient closely. Baljeet King MD
--- NOTE | 2017-05-10 19:29 | PN ---
DATE: 05/04/2017 SUBJECTIVE: The patient is a 66-year-old female, who presented to the emergency room yesterday, complaining of worsening cough and sputum production for about a week. She was found to have a white cell count over 20,000 and pH of 7.1. She was evaluated by the terminal make up operator and admitted into the intensive care unit with the diagnoses of urinary tract infection, sepsis, and hyperkalemia. When seen today, she is in the intensive care unit. Her /boyfriend is at bedside. She is awake, alert, but feeling weak, complaining of feeling terrible. PHYSICAL EXAMINATION: VITAL SIGNS: She is afebrile at 97.4, blood pressure is 124/68. GENERAL: She is awake, alert, and oriented. LUNGS: Clear anteriorly. HEART: Regular. ABDOMEN: Soft and nontender. She is known to have a history of alcoholic cardiomyopathy with an ejection fraction of approximately 15%. She was hospitalized with congestive heart failure in the past status post myocardial infarction. 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 She has a nonhealing fracture of the right upper humerus with separation of the midshaft. This, she has had for several years, refusing further surgery when the patient suffered a cardiac arrest during induction of anesthesia initially for repair of this fracture. 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 This morning, her white blood cell count is 9.4, hemoglobin is 7.4, hematocrit is 22.4. Sodium is 146, potassium is 3.4, blood urea nitrogen is 12, creatinine is 0.5. We will be transferring 2 units of packed red blood cells. Her urinalysis is positive for urinary tract infection, which is a possible source of her sepsis. Also, of note, the patient has very fragile veins and in an attempt to get an access, an IV line, she developed ecchymotic swelling on the dorsum of her right hand. It is exquisitely tender. We will get x-ray of this hand because of the degree of pain involved with it. We will continue to follow the patient closely. Baljeet King MD [facility] # [id number]
--- NOTE | 2017-05-10 19:54 | PN ---
DATE: 05/07/2017 DAILY PROGRESS NOTE SUBJECTIVE: The patient is a 66-year-old female with a history of alcoholic cardiomyopathy, a severely depressed ejection fraction, history of alcoholic bone marrow suppression with pancytopenia. She is status post myocardial infarction. She has a nonhealing right humerus fracture with separation at mid-shaft, status post cardiac arrest during anesthesia induction for repair of this fracture. She refused repeated surgery since then. She was admitted to the [facility] Intensive [facility] Unit 4 days ago with sepsis, hyperkalemia and urinary tract infection. She is doing well on antibiotics since then. She is followed by Infectious Disease and continues to do well. Her physical exam is unchanged. Her significant other, boyfriend, is at her bedside. We will continue to follow the patient closely. The case to be discussed with Dr. Ray, the Infectious Disease specialist as well as with Dr. Schulte, her utility hand and Dr. Parker, her irrigator head. Baljeet King MD
--- NOTE | 2017-05-10 21:18 | PN ---
DATE: 05/05/2017 DAILY PROGRESS NOTE SUBJECTIVE: The patient is a 66-year-old female who was admitted 2 day ago with sepsis. She was admitted to the Intensive Care Unit with a white cell count over 20,000 and a pH of 7.1. She is found to have a urinary tract infection. The report shows her urine is positive for Klebsiella, which is sensitive to meropenem and gentamicin. Yesterday, the patient was extremely anemic with a hemoglobin of 7.4, she received 2 packs of red blood cells. This morning, her hemoglobin and hematocrit are 10.1 and 30.7 respectively. She is known to have a history of alcoholic cardiomyopathy with an ejection fraction of 15% as well as alcoholic bone marrow suppression with a history of pancytopenia. She has a nonhealing fracture of the right humerus with a separation at the mid shaft. This morning, her white blood cell count is 9.2 and platelet count is 291. Sodium is 140, potassium is 4.2, blood urea nitrogen is 13, creatinine is 0.6. X-ray was done of the swollen ecchymotic right hand and this is negative for fracture. PLAN: The patient continues to be treated with meropenem. She continues to be followed by the vice president education here on the Intensive Care Unit and she will be reevaluated in the morning. Baljeet King MD [place]
[2017-05-11] MEDS: Morphine 2 mg/ml ISec IVP PRN ×2 (01:26→07:00)
[2017-05-11] MEDS: Levalbuterol 1.25 MG/3 ML Inhal Soln UD IH SCH ×3 (01:42→13:16)
--- NOTE | 2017-05-11 03:54 | PN ---
DATE: 05/10/2017 SUBJECTIVE: The patient was seen this in the morning, in room 565, bed 2. She is awake and alert, in good spirits. The right arm is quite swollen and red. There is new breakdown of skin on the dorsum of the hand Silvadene cream. Surgical team is following, but there is no plan for surgical intervention at this time. PHYSICAL EXAMINATION LUNGS: Show markedly decreased breath sounds with severe COPD, but breath sounds are present in all lung dutta. EXTREMITIES: Otherwise unremarkable, except for findings as above, and chronic fractures of the mid humerus on the right arm. PLAN: Again, I emphasized the importance of elevation to the patient. She is hoping to and agreed with me on transfer to transitional care unit after her acute care hospital stay. 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 Tripp King MD
[2017-05-11] MEDS: Meropenem IV 1 gm in NS 50 ML IVPB SCH (05:30)
[2017-05-11] MEDS: Budesonide 0.5 mg/2 ml Inhal Susp UD IH SCH (07:21)
[2017-05-11 07:44] VITALS: BP 92/46; PULSE 86; RESP 20; TEMP 98; O2SAT 96
--- NOTE | 2017-05-11 08:35 | PN ---
DATE: 05/09/2017 SUBJECTIVE: The patient is a 66-year-old female with a history of alcoholic cardiomyopathy with an ejection fraction of 15%, alcoholic bone marrow suppression with a history of pancytopenia, who was admitted 6 days ago to the intensive care unit with sepsis, urinary tract infection, found to be positive for Klebsiella. She was also positive for H. flu on nasal swab. Today, she has completed a 5-day course of Tamiflu. Today is day #5 out of 7 to 10-day treatment for Merrem. She had an IV infiltrate in the dorsum of her right hand, which caused ecchymosis, swelling, and exquisite pain. It was negative for fracture when x-rayed. She was evaluated by Dr. Sweeney. Venous Dopplers were performed that were negative for DVT of the hand. OBJECTIVE: When seen today, the patient is awake, alert, and oriented. She is complaining of pain in the hand. Respirations are easy. Lungs are clear. Heart is regular. Abdomen is soft and nontender. She is afebrile at 98.8, blood pressure is 120/52, and a heart rate of 86. Yesterday, the patient was transferred out of the intensive care unit up to the fifth floor where she is now with her significant other at bedside. The patient continues to do well. We will be continuing the Merrem for another few days; the Tamiflu has been discontinued. Repeat urine culture is negative for growth. Baljeet King MD
--- NOTE | 2017-05-11 08:39 | PN ---
DATE: 05/10/2017 SUBJECTIVE: Patient is awake, alert, without shortness of breath. She complained of diffuse weakness. PHYSICAL EXAMINATION: VITAL SIGNS: Blood pressure 90/50, heart rate is in the 80s. NECK: Negative JVD. LUNGS: Without rales. HEART: S1 and S2. EXTREMITIES: Without edema. LABORATORY DATA: Hemoglobin is 12. Chemistries: Glucose is 96. IMPRESSION: 1. End-stage dilated cardiomyopathy. 2. Severe chronic obstructive pulmonary disease. 3. Diffuse weakness. 4. History of alcoholism. 5. Congestive heart failure, which has now resolved. PLAN: Given these findings, we will continue the patient on her present medications. The patient is scheduled for transfer to rehab. Michael Schulte MD
--- NOTE | 2017-05-11 09:09 | PN ---
DATE: PULMONARY NOTE SUBJECTIVE: The patient appears comfortable this morning. She is not short of breath at rest. OBJECTIVE VITAL SIGNS: Temperature is 98, pulse 86, respirations 18/20, blood pressure 92/46. Oxygen saturation on room air is 96%. HEENT: Normocephalic, atraumatic. NECK: No JVD. CARDIOVASCULAR: Positive S1, S2. No S3 gallop. LUNGS: Decreased breath sounds at the bases. No rhonchi or wheezing this morning. EXTREMITIES: The right hand is now wrapped. There is mild edema in her legs. No cyanosis or clubbing. Calves are nontender to palpation. GASTROINTESTINAL: Abdomen is soft, nontender and nondistended. Bowel sounds are positive. SKIN: No acute rash. NEUROLOGIC: Exam limited at the present time. IMPRESSION 1. Encephalopathy, weakness. 2. Sepsis syndrome. 3. Urinary tract infection. 4. Influenza A positivity. 5. Advanced chronic obstructive pulmonary disease. 6. Advanced cardiomyopathy. 7. Coronary artery disease. PLAN: The patient appears very comfortable this morning. She is not short of breath at rest. She does appear less weak. She also states to feeling better, overall. On physical exam, there is certainly less bronchospasm noted. In addition, there is no significant alveolar-arterial gradient. I will continue with the current nebulizer treatments and inhaled steroids for now. Inputs by Surgery and Infectious Disease are also noted. The clinical status of the patient is definitely improved - compared to the initial presentation. However, again, unfortunately, the future status/prognosis for this patient remains poor, all are aware. I will discuss the above with the attending physician. Adam Parker MD [place]
[2017-05-11] MEDS: Furosemide 40 mg/5 mL Oral Soln UD PO SCH (10:38)
[2017-05-11] MEDS: Vancomycin 1gm in NS 250ml 1 GM/250 ML BAG IVPB SCH (12:42)
--- NOTE | 2017-05-11 13:30 | CP.PCM.PN ---
Subjective - Date & Time of Evaluation Date of Evaluation: 05/11/17 Time of Evaluation: 13:27 - Subjective Subjective: SUrgery Pt s&e. Dressing changed and silvadene applied this AMSahil LUTZ. Pt planned on being DCed today. Objective - Vital Signs/Intake and Output Vital Signs (last 24 hours): Temp Pulse Resp BP Pulse Ox 98.0 F 86 20 92/46 L 96 05/11/17 07:30 05/11/17 07:30 05/11/17 07:30 05/11/17 07:30 05/11/17 07:30 Intake and Output: 05/11/17 05/11/17 06:59 18:59 Intake Total 120 Output Total 250 Balance -130 - Medications Medications: Current Medications Acetaminophen (Tylenol 325mg Tab) 650 mg PO Q6H PRN PRN Reason: Fever >100.4 F Alprazolam (Xanax) 1 mg PO TID BELEM PRN Reason: Protocol Stop: 05/11/17 18:01 Last Admin: 05/11/17 10:37 Dose: 1 mg Budesonide (Pulmicort Respules) 0.5 mg IH [id number] [facility] Last Admin: 05/11/17 07:21 Dose: Not Given Dextrose (Dextrose 50% Inj) 50 ml IVP PRN PRN PRN Reason: Hypoglycemia Furosemide (Lasix) 40 mg PO DAILY [facility] Last Admin: 05/11/17 10:38 Dose: Not Given Meropenem (Merrem Iv 1 Gm Premix) 50 mls @ 100 mls/hr IVPB Q8 BELEM PRN Reason: Protocol Stop: 05/14/17 22:01 Last Admin: 05/11/17 05:30 Dose: 100 mls/hr Vancomycin HCl (Vancomycin 1gm) 1 gm in 250 mls @ 167 mls/hr IVPB Q12H BELEM PRN Reason: Protocol Last Admin: 05/11/17 12:42 Dose: Not Given Levalbuterol HCl (Xopenex) 1.25 mg IH [id number] [facility] Last Admin: 05/11/17 13:16 Dose: Not Given Morphine Sulfate (Morphine) 2 mg IVP Q4H PRN PRN Reason: Pain, severe (8-10) Last Admin: 05/11/17 07:00 Dose: 2 mg Ondansetron HCl (Zofran Inj) 4 mg IVP Q6H PRN PRN Reason: Nausea/Vomiting Last Admin: 05/11/17 10:43 Dose: 4 mg Silver Sulfadiazine (Silvadene 1% 25 Gm) 0 gm TP DAILY [facility] Last Admin: 05/11/17 10:47 Dose: 25 gm - Labs Labs: 05/06/17 08:20 05/06/17 08:20 PT 14.4 SECONDS (9.4-12.5) H 05/05/17 08:38 INR 1.25 (0.93-1.08) H 05/05/17 08:38 APTT 38.5 Seconds (25.1-36.5) H 05/05/17 08:38 - Constitutional Appears: No Acute Distress - Head Exam Head Exam: ATRAUMATIC, NORMAL INSPECTION, NORMOCEPHALIC - Eye Exam Eye Exam: EOMI, Normal appearance, PERRL Pupil Exam: NORMAL ACCOMODATION, PERRL - ENT Exam ENT Exam: Mucous Membranes Moist, Normal Exam - Neck Exam Neck Exam: Full ROM, Normal Inspection. absent: Lymphadenopathy - Respiratory Exam Respiratory Exam: Clear to Ausculation Bilateral, NORMAL BREATHING PATTERN - Cardiovascular Exam Cardiovascular Exam: REGULAR RHYTHM, +S1, +S2. absent: Murmur - GI/Abdominal Exam GI & Abdominal Exam: Soft, Normal Bowel Sounds. absent: Distended, Tenderness - Extremities Exam Extremities Exam: absent: Full ROM, Normal Inspection Additional comments: R arm humerous fracture. R hand edema. Ecchymosis. Dressing in place. - Back Exam Back Exam: NORMAL INSPECTION - Neurological Exam Neurological Exam: Alert, Awake, CN II-XII Intact, Normal Gait, Oriented x3 - Psychiatric Exam Psychiatric exam: Normal Affect, Normal Mood - Skin Skin Exam: Intact, Warm. absent: Normal Color Assessment and Plan - Assessment and Plan (Free Text) Assessment: 66 year old female with PMH COPD, CHF with EF of 15%, chronic alcohol abuse, DM , right humerus fracture, presents for acute renal failure, klebseilla pneumoniae UTI, found to have developed right hand infiltration s/p IV insertion : - right arm ultrasound shows no DVT -Xray hand/wrist shows soft tissue swelling. No fx - Cool compress to site/elevate arm - Avoid IV at the site - Apply silvadene and telfa on hand and wrist. Wrap with Ehsan Bandage. -AKASH Sweeney
--- NOTE | 2017-05-11 14:09 | CP.PCM.PN ---
Subjective - Date & Time of Evaluation Date of Evaluation: 05/11/17 Time of Evaluation: 12:15 - Subjective Subjective: Still with hand swelling but less, less pain, no fevers, no dysuria. Objective - Vital Signs/Intake and Output Vital Signs (last 24 hours): Temp Pulse Resp BP Pulse Ox 98.0 F 86 20 92/46 L 96 05/11/17 07:30 05/11/17 07:30 05/11/17 07:30 05/11/17 07:30 05/11/17 07:30 Intake and Output: 05/11/17 05/11/17 06:59 18:59 Intake Total 120 Output Total 250 Balance -130 - Medications Medications: Current Medications Acetaminophen (Tylenol 325mg Tab) 650 mg PO Q6H PRN PRN Reason: Fever >100.4 F Alprazolam (Xanax) 1 mg PO TID BELEM PRN Reason: Protocol Stop: 05/11/17 18:01 Last Admin: 05/10/17 18:44 Dose: 1 mg Budesonide (Pulmicort Respules) 0.5 mg IH [id number] [facility] Last Admin: 05/11/17 07:21 Dose: Not Given Dextrose (Dextrose 50% Inj) 50 ml IVP PRN PRN PRN Reason: Hypoglycemia Furosemide (Lasix) 40 mg PO DAILY [facility] Last Admin: 05/10/17 09:50 Dose: Not Given Meropenem (Merrem Iv 1 Gm Premix) 50 mls @ 100 mls/hr IVPB Q8 BELE[facility] PRN Reason: Protocol Stop: 05/14/17 22:01 Last Admin: 05/11/17 05:30 Dose: 100 mls/hr Vancomycin HCl (Vancomycin 1gm) 1 gm in 250 mls @ 167 mls/hr IVPB Q12H [facility] PRN Reason: Protocol Last Admin: 05/10/17 21:45 Dose: 167 mls/hr Levalbuterol HCl (Xopenex) 1.25 mg IH [id number] [facility] Last Admin: 05/11/17 07:21 Dose: Not Given Morphine Sulfate (Morphine) 2 mg IVP Q4H PRN PRN Reason: Pain, severe (8-10) Last Admin: 05/11/17 07:00 Dose: 2 mg Ondansetron HCl (Zofran Inj) 4 mg IVP Q6H PRN PRN Reason: Nausea/Vomiting Last Admin: 05/10/17 09:50 Dose: 4 mg Silver Sulfadiazine (Silvadene 1% 25 Gm) 0 gm TP DAILY BELEM - Labs Labs: 05/06/17 08:20 05/06/17 08:20 PT 14.4 SECONDS (9.4-12.5) H 05/05/17 08:38 INR 1.25 (0.93-1.08) H 05/05/17 08:38 APTT 38.5 Seconds (25.1-36.5) H 05/05/17 08:38 - Constitutional Appears: Cachectic, Chronically Ill - Head Exam Head Exam: NORMAL INSPECTION - ENT Exam ENT Exam: Mucous Membranes Moist - Neck Exam Neck Exam: absent: Meningismus - Respiratory Exam Respiratory Exam: Decreased Breath Sounds - Cardiovascular Exam Cardiovascular Exam: +S1, +S2 - GI/Abdominal Exam GI & Abdominal Exam: Soft. absent: Tenderness - Extremities Exam Additional comments: right hand with bandages in place Assessment and Plan - Assessment and Plan (Free Text) Plan: Assessment Sepsis due to systemic viral illness with Influenza A (S/P treatment), consider also Klebsiella UTI acute swelling of the right hand related to IV infiltration history of VDRF from poor responsiveness, on top of probable severe sepsis from HCAP, bilateral CHF with alcoholic cardiomyopathy DM COPD Hodgkin lymphoma ITP history of alcohol abuse Plan completed 5 days of Tamiflu on Merrem (day 7) to complete 7-10 days - would recommend removal of Cota catheter if feasible on IV Vancomycin day 4 for the right hand swelling - can switch to PO antibiotics to complete 7-10 days total antibiotics Surgery following right hand swelling duplex scan of the right upper extremity does not show DVT
--- NOTE | 2017-05-11 14:17 | PN ---
DATE: 05/11/2017 CARDIOLOGY FOLLOWUP SUBJECTIVE: The patient is awake, alert. No shortness of breath noted. PHYSICAL EXAMINATION VITAL SIGNS: Stable. NECK: Negative JVD. LUNGS: Without rales. HEART: Reveal S1, S2. EXTREMITIES: Without edema. LABORATORY DATA: BUN and creatinine are unremarkable. Glucose is 91. IMPRESSION: 1. End-stage dilated cardiomyopathy. 2. Coronary artery disease. 3. Chronic obstructive pulmonary disease. 4. Anemia. 5. Weakness. PLAN: Given these findings, the patient is hemodynamically at her baseline. The patient is scheduled for discharge today. Michael Shculte MD
--- NOTE | 2017-05-12 03:33 | DS ---
HISTORY OF PRESENT ILLNESS: This is a 66-year-old woman I have known for many years, with a history of severe alcoholic cardiomyopathy, congestive heart failure, ejection fraction of approximately 15%, COPD, ongoing tobacco use who presented to the emergency room with severe infection, urinary tract infection, sepsis, hyperkalemia. She was intubated and admitted to ICU, treated aggressively with IV antibiotics and followed by a multitude of consultants including Dr. Castelan and Dr. Parker for Pulmonary, Dr. Michael Schulte for Cardiology, Dr. Byrd and Dr. Ray for Infectious Disease. Her hospital course was stormy because of the severity of her illness. Her son was requesting an extremely aggressive approach to her medical care. She improved clinically, was extubated, came to the medical floor. Unfortunately, in the interim, she had a rather severe infiltration of the IV in the right arm, and this arm is already compromised because of a chronic mid humerus fracture that is nonhealing. Because of the edema in the hand, surgical consultation was requested, and a conservative approach was taken with elevation, and over the course of two or three days the swelling began to improve. The bright erythema subsided. Patient was offered a multitude of options for subacute rehab arranging from Transitional Care Unit to an off-premises subacute rehab. She did not like any of those options and preferred to go home, and so she was ready for discharge today, 05/11/2017. She will follow up in the office in one week. FINAL DISCHARGE DIAGNOSES: 1. Sepsis, pneumonia, bronchitis. 2. Chronic obstructive pulmonary disease. 3. Alcoholic cardiomyopathy. 4. Congestive heart failure with ejection fraction of 15%. 5. Coronary artery disease. 6. Hypertension. 7. Anxiety. 8. Alcoholic bone marrow suppression. 9. Chronic nonhealing fracture of the mid shaft of the right humerus with separation. 10. Status post cardiac arrest, following anesthesia for attempted surgical repair of the above mentioned fracture. 11. Tobacco use. 12. History of alcoholism. 13. Influenza with positive influenza type A (EIA). PLAN: Patient was discharged to home. Follow up with us in the office in one week. Tripp King MD
== END 2017-05-11 14:19 | disposition home or self-care (01) | DRG 871 ==
LOC: ED 13:50 → ERH 16:50 → ICU 21:43 → 5RNO 05-08 19:04
PROVIDERS: ADMIT Internal Medicine; ATTEND Internal Medicine
PROC: 05HY33Z Insertion of Infusion Device into Upper Vein, Percutaneous Approach (ICD-10-PCS; principal; 2017-05-08)
PROC: B54MZZA Ultrasonography of Right Upper Extremity Veins, Guidance (ICD-10-PCS; 2017-05-08)
DX: A41.9 Sepsis, unspecified organism (principal); G93.40 Encephalopathy, unspecified; N17.9 Acute kidney failure, unspecified; D69.3 Immune thrombocytopenic purpura; J10.00 Influenza due to other identified influenza virus with unspecified type of pneumonia; I11.0 Hypertensive heart disease with heart failure; E87.2 Acidosis; I50.9 Heart failure, unspecified; E11.9 Type 2 diabetes mellitus without complications; D64.9 Anemia, unspecified; I42.0 Dilated cardiomyopathy; I42.6 Alcoholic cardiomyopathy; J44.0 Chronic obstructive pulmonary disease with (acute) lower respiratory infection; N39.0 Urinary tract infection, site not specified; M84.421K Pathological fracture, right humerus, subsequent encounter for fracture with nonunion; E87.5 Hyperkalemia; F10.10 Alcohol abuse, uncomplicated; F17.200 Nicotine dependence, unspecified, uncomplicated; F31.9 Bipolar disorder, unspecified; F41.9 Anxiety disorder, unspecified; I25.10 Atherosclerotic heart disease of native coronary artery without angina pectoris; I25.2 Old myocardial infarction; I44.7 Left bundle-branch block, unspecified; J10.1 Influenza due to other identified influenza virus with other respiratory manifestations; Z85.72 Personal history of non-Hodgkin lymphomas; Z86.74 Personal history of sudden cardiac arrest; Z87.01 Personal history of pneumonia (recurrent); Z87.440 Personal history of urinary (tract) infections; Z88.6 Allergy status to analgesic agent; Z88.4 Allergy status to anesthetic agent; Z88.8 Allergy status to other drugs, medicaments and biological substances; Z87.892 Personal history of anaphylaxis

== ENCOUNTER 2017-05-23 14:03 | Emergency (ER) | payer MEDICARE, OTHER ==
[2017-05-23 14:04] VITALS: PULSE 150
[2017-05-23 14:09] VITALS: RESP 18; TEMP 98; BMI 16.1
[2017-05-23 15:38] VITALS: BP 113/55; PULSE 80; O2SAT 98
--- NOTE | 2017-05-23 15:44 | ED PDOC ---
Arrival/HPI - General Chief Complaint: Medical Clearance Time Seen by Provider: 05/23/17 14:13 Historian: Patient - History of Present Illness Narrative History of Present Illness (Text): 05/23/17 15:44 A 66 year old female, whose past medical history includes hypertension, COPD, CHF and alcoholic cardiomyopathy, sent into the emergency department by PMD for PICC line removal. Patient denies any pain, swelling, weakness or numbness to arm. Patient denies any fever, chills, body aches, nausea, vomiting, abdominal pain, chest pain, shortness of breath, cough or any other complaints. PMD: Dr. King Past Medical History - Provider Review Nursing Documentation Reviewed: Yes - Past History Past History: Non-Contributing - Infectious Disease Hx of Infectious Diseases: None - Tetanus Immunization Tetanus Immunization: Up to Date, Unknown - Cardiac Hx Cardiac Disorders: Yes (alcoholic cardiomyopathy) Hx Hypertension: Yes - Pulmonary Hx Chronic Obstructive Pulmonary Disease (COPD): Yes Hx Pneumonia: Yes - Neurological Hx Neurological Disorder: Yes (syncope ams) Hx Dizziness: Yes - HEENT Hx HEENT Disorder: Yes (eyeglasses) Other/Comment: developes ulcers left eye on eye drops - Renal Hx Renal Disorder: No - Endocrine/Metabolic Hx Diabetes Mellitus Type 2: Yes - Hematological/Oncological Hx Cancer: Yes ([place]MPHOMA) - Integumentary Hx Dermatological Disorder: No (LEFT UPPER ARM IN AND OUT OF PORT.) - Musculoskeletal/Rheumatological Hx Back Pain: Yes Hx Falls: Yes - Gastrointestinal Hx Gastrointestinal Disorders: Yes (weight loss appetite changes) - Genitourinary/Gynecological Hx Urinary Tract Infection: Yes Other/Comment: + urinary catheter - Psychiatric Hx Psychophysiologic Disorder: Yes Hx Anxiety: Yes Hx Bipolar Disorder: Yes Hx Depression: Yes Hx Substance Use: No Other/Comment: alcohol abuse - Past Surgical History Past Surgical History: Non-Contributing - Surgical History Hx Mastectomy: No - Anesthesia Hx Anesthesia: Yes Hx Anesthesia Reactions: Yes (SEE ALLERGIES) Hx Malignant Hyperthermia: No - Suicidal Assessment Feels Threatened In Home Enviroment: No Family/Social History - Physician Review Nursing Documentation Reviewed: Yes Family/Social History: No Known Family HX Smoking Status: Former Smoker Hx Alcohol Use: Yes Amount per day: 3 Hx Substance Use: No Hx Substance Use Treatment: No Allergies/Home Meds Allergies/Adverse Reactions: Allergies diphenhydramine HCl [From Benadryl] Allergy (Verified 05/23/17 14:14) SHORTNESS OF BREATH IV AND BLOOD PRESSURE LOW aspirin Adverse Reaction (Verified 05/23/17 14:14) SHORTNESS OF BREATH anesthesia Allergy (Intermediate, Uncoded 05/23/17 14:14) RASH anesthetic agents Allergy (Mild, Uncoded 05/23/17 14:14) ANAPHYLAXIS Pt states she went into Cardiac arrest from anesthetics Home Medications: Home Meds Medication Instructions Recorded Confirmed Unobtainable 05/23/17 05/23/17 Review of Systems - Physician Review All systems were reviewed & negative as marked: Yes - Review of Systems Constitutional: Normal. absent: Fevers, Night Sweats Respiratory: absent: SOB, Cough Cardiovascular: absent: Chest Pain Gastrointestinal: absent: Abdominal Pain, Nausea, Vomiting Physical Exam Vital Signs Reviewed: Yes Vital Signs Temp Pulse Resp BP Pulse Ox 05/23/17 15:38 80 18 113/55 L 98 05/23/17 14:08 98.0 F 81 18 140/68 96 Temperature: Afebrile Blood Pressure: Normal Pulse: Regular Respiratory Rate: Normal Appearance: Positive for: Well-Appearing, Non-Toxic, Comfortable Pain Distress: None Mental Status: Positive for: Alert and Oriented X 3 - Systems Exam Head: Present: Atraumatic, Normocephalic Pupils: Present: PERRL Extroacular Muscles: Present: EOMI Conjunctiva: Present: Normal Mouth: Present: Moist Mucous Membranes Neck: Present: Normal Range of Motion Respiratory/Chest: Present: Clear to Auscultation, Good Air Exchange. No: Respiratory Distress, Accessory Muscle Use Cardiovascular: Present: Regular Rate and Rhythm, Normal S1, S2. No: Murmurs Abdomen: No: Tenderness, Distention, Peritoneal Signs Upper Extremity: Present: Normal Inspection, Normal ROM, NORMAL PULSES, Neurovascularly Intact, Other (PICC line in place on left arm. Sensory and motor sensation intact in left arm. No erythema, pus, swelling, or tenderness. Decrease strength in right arm secondary to fracture.). No: Cyanosis, Edema, Tenderness, Swelling, Erythema, Temperature Abnormalties Lower Extremity: Present: Normal Inspection. No: Edema Neurological: Present: GCS=15, CN II-XII Intact, Speech Normal Skin: Present: Warm, Dry, Normal Color. No: Rashes Psychiatric: Present: Alert, Oriented x 3, Normal Insight, Normal Concentration Medical Decision Making ED Course and Treatment: 05/23/17 15:44 Impression: A 66 year old male sent in for PICC line removal. No complaints. Differential Diagnosis included but are not limited to: PICC removal Plan: -- Culture catheter -- Reassess and disposition Progress Notes: PICC line removed by me. No bleeding after removal. Pressure held to wound with ria by Medical student Jacob with my supervision. Area was cleaned, gauzed and bandaged. Catheter sent to micro. I have discussed the plan with the patient, who expresses understanding. Patient in agreement with plan to be discharged home. Patient is stable for discharge. Patient was instructed to follow up with PMD as needed or return if symptoms worsen or new concerning symptoms arise. - Scribe Statement The provider has reviewed the documentation as recorded by the Layibsalud Blanton Provider Scribe Attestation: All medical record entries made by the Scribe were at my direction and personally dictated by me. I have reviewed the chart and agree that the record accurately reflects my personal performance of the history, physical exam, medical decision making, and the department course for this patient. I have also personally directed, reviewed, and agree with the discharge instructions and disposition. Disposition/Present on Arrival - Present on Arrival Any Indicators Present on Arrival: Yes History of DVT/PE: No History of Uncontrolled Diabetes: No Urinary Catheter: Yes History of Decub. Ulcer: No History Surgical Site Infection Following: None - Disposition Have Diagnosis and Disposition been Completed?: Yes Diagnosis: Encounter for removal of peripherally inserted central catheter Disposition: HOME/ ROUTINE Disposition Time: 16:40 Patient Plan: Discharge Condition: IMPROVED Discharge Instructions (ExitCare): Peripherally-Inserted Central Catheter Removal Additional Instructions: Ms Tanner, thank you for letting us take care of you today. Your provider was Dr. Foster. You were treated for Picc Line Removal. The emergency medical care you received today was directed at your acute symptoms. If you were prescribed any medication, please fill it and take as directed. It may take several days for your symptoms to resolve. Return to the Emergency Department if your symptoms worsen, do not improve, or if you have any other problems. Please contact your doctor or call one of the physicians/clinics you have been referred to that are listed on the Patient Visit Information form that is included in your discharge packet. Bring any paperwork you were given at discharge with you along with any medications you are taking to your follow up visit. Our treatment cannot replace ongoing medical care by a primary care provider (PCP) outside of the emergency department. Thank you for allowing the [facility] team to be part of your care today. If you had an X-Ray or CT scan: A Radiologist will review the ED reading if any change in treatment is needed we will contact you. If you had a blood, urine, or wound culture: It will take several days for the results, if any change in treatment is needed we will contact you. If you had an STI test: It will take 48 hours for the results. Please call after 1 week if you have not heard back. Referrals: Tripp King MD [Staff Provider] - Follow up with primary Forms: Co-Work ([place])
== END 2017-05-23 16:40 | disposition home or self-care (01) ==
LOC: ED 14:03
DX: Z45.2 Encounter for adjustment and management of vascular access device (principal); E11.9 Type 2 diabetes mellitus without complications; I10 Essential (primary) hypertension; I50.9 Heart failure, unspecified; J44.9 Chronic obstructive pulmonary disease, unspecified; Z87.891 Personal history of nicotine dependence

== ENCOUNTER 2017-06-10 05:16 | Inpatient (IN) | payer MEDICARE, OTHER ==
[2017-06-10 05:17] VITALS: PULSE 150
[2017-06-10 05:19] VITALS: BMI 15.3
--- NOTE | 2017-06-10 05:54 | ED PDOC ---
Arrival/HPI - General Chief Complaint: Altered Mental Status Time Seen by Provider: 06/10/17 05:23 Historian: Patient EM Caveat: Altered Mental Status - History of Present Illness Narrative History of Present Illness (Text): 06/10/17 05:53 66 year old female, whose past medical history includes hypertension Chronic pain, VT, COPD, CHF and alcoholic cardiomyopathy, presents to the emergency department for evaluation for AMS. According to , patient has been weak for over the past couple of days with worsening symptoms this morning. States patient is on Morphine and Xanax medication, but is unsure if she may have taken an extra dose. He states that patient has not been eating well recently and still smokes. HPI and ROS limited due to patients states of AMS. PMD: Dr. King Time/Duration: Other (2-3 days) Symptom Onset: Gradual Symptom Course: Worsening Activities at Onset: Light Context: Home Past Medical History - Provider Review Nursing Documentation Reviewed: Yes - Past History Past History: Non-Contributing - Infectious Disease Hx of Infectious Diseases: None - Tetanus Immunization Tetanus Immunization: Up to Date, Unknown - Cardiac Hx Cardiac Disorders: Yes (alcoholic cardiomyopathy) Hx Congestive Heart Failure: Yes Hx VT: Yes Hx Hypertension: Yes - Pulmonary Hx Respiratory Disorders: Yes Hx Chronic Obstructive Pulmonary Disease (COPD): Yes Hx Pneumonia: Yes - Neurological Hx Neurological Disorder: Yes (syncope ams) Hx Dizziness: Yes - HEENT Hx HEENT Disorder: Yes (eyeglasses) Other/Comment: developes ulcers left eye on eye drops - Renal Hx Renal Disorder: No - Endocrine/Metabolic Hx Diabetes Mellitus Type 2: Yes - Hematological/Oncological Hx Blood Disorders: Yes Hx Cancer: Yes (LYMPHOMA) - Integumentary Hx Dermatological Disorder: No (LEFT UPPER ARM IN AND OUT OF PORT.) - Musculoskeletal/Rheumatological Hx Musculoskeletal Disorders: Yes Hx Back Pain: Yes Hx Falls: Yes - Gastrointestinal Hx Gastrointestinal Disorders: Yes (weight loss appetite changes) - Genitourinary/Gynecological Hx Urinary Tract Infection: Yes - Psychiatric Hx Psychophysiologic Disorder: Yes Hx Anxiety: Yes Hx Bipolar Disorder: Yes Hx Depression: Yes Hx Substance Use: No Other/Comment: alcohol abuse - Past Surgical History Past Surgical History: Non-Contributing - Surgical History Hx Mastectomy: No - Anesthesia Hx Anesthesia: Yes Hx Anesthesia Reactions: Yes (SEE ALLERGIES) Hx Malignant Hyperthermia: No - Suicidal Assessment Feels Threatened In Home Enviroment: No Family/Social History - Physician Review Nursing Documentation Reviewed: Yes Family/Social History: No Known Family HX Smoking Status: Heavy Smoker > 10 Cigarettes Daily Hx Alcohol Use: Yes Amount per day: 3 Hx Substance Use: No Hx Substance Use Treatment: No Allergies/Home Meds Allergies/Adverse Reactions: Allergies diphenhydramine HCl [From Benadryl] Allergy (Verified 05/23/17 14:14) SHORTNESS OF BREATH IV AND BLOOD PRESSURE LOW aspirin Adverse Reaction (Verified 05/23/17 14:14) SHORTNESS OF BREATH anesthesia Allergy (Intermediate, Uncoded 05/23/17 14:14) RASH anesthetic agents Allergy (Mild, Uncoded 05/23/17 14:14) ANAPHYLAXIS Pt states she went into Cardiac arrest from anesthetics Home Medications: Home Meds Medication Instructions Recorded Confirmed Unobtainable 05/23/17 05/23/17 Review of Systems - Physician Review All systems were reviewed & negative as marked: Yes - Review of Systems Systems not reviewed;Unavailable: Altered Mental Status Physical Exam Vital Signs Reviewed: Yes Vital Signs Temp Pulse Resp BP Pulse Ox 06/10/17 06:40 93 H 12 96/48 L 06/10/17 05:49 97.8 F 96 H 21 90/41 L 98 Temperature: Afebrile Blood Pressure: Hypotensive Pulse: Regular Respiratory Rate: Normal Appearance: Positive for: Non-Toxic, Comfortable Pain Distress: None Mental Status: Positive for: other (Somnolent but arousable ) Finger Stick Blood Glucose: 76 - Systems Exam Head: Present: Atraumatic, Normocephalic Pupils: Present: Other (miotic) Extroacular Muscles: Present: EOMI Conjunctiva: Present: Normal Mouth: Present: Dry Neck: Present: Normal Range of Motion Respiratory/Chest: Present: Decreased Breath Sounds (bilaterally). No: Respiratory Distress, Accessory Muscle Use Cardiovascular: Present: Regular Rate and Rhythm, Normal S1, S2. No: Murmurs Abdomen: No: Tenderness, Distention, Peritoneal Signs Back: Present: Normal Inspection Upper Extremity: Present: Normal Inspection. No: Cyanosis, Edema Lower Extremity: Present: Edema (2+ bilateral lower leg edema), Erythema (Skin erythema to the lower distal extremities) Neurological: Present: GCS=15, CN II-XII Intact Skin: Present: Warm, Dry, Normal Color. No: Rashes Psychiatric: Present: Alert, Normal Insight, Normal Concentration Medical Decision Making ED Course and Treatment: 06/10/17 05:54 Impression: 66 year old female presents for AMS. Plan: -- VBG -- CT Head w/o CT -- EKG -- Labs -- Chest X-ray -- IV Fludis, Narcan -- Blood Culture, Urine Culture -- Urinalysis -- Reassess and disposition Prior Visits: Notes and results from previous visits were reviewed. Patient was last seen in the emergency department on 05/23/17 presents for PICC removal. Patient was discharged Progress Notes: 06/10/17 06:40 EKG shows Sinus Tachycardia at [address] N[address]/T changes. Interpreted by me. 06/10/17 06:42 CXR Impression: As read by me, chronic interstitial changes 06/10/17 07:05 Case endorsed to /pending labs/ct scan head/reassess/final disposition - Lab Interpretations Lab Results: 06/10/17 06:00 Lab Results 06/10/17 06:45: pO2 177 H, VBG pH 7.32, VBG pCO2 40.0, VBG HCO3 20.6 L, VBG Total CO2 21.8 L, VBG O2 Sat (Calc) 99.1 H, VBG Base Excess -5.2 L, VBG Potassium 3.7, Glucose 78, Lactate 0.7, FiO2 21.0, Sodium 141.0, Chloride 114.0 H, Venous Blood Potassium 3.7 06/10/17 06:00: Sodium 142, Potassium 5.4 H, Chloride 111 H, Carbon Dioxide 21, Anion Gap 16, BUN 27 H, Creatinine 1.1, Est GFR ( Amer) 60, Est GFR (Non- Af Amer) 49, Random Glucose 76, Calcium 8.3 L, Total Bilirubin 0.8, AST 46 H D, ALT 15, Alkaline Phosphatase 110, Lactate Dehydrogenase 1018 H, Total Creatine Kinase 71, Troponin I 0.09 D, Total Protein 5.8, Albumin 2.9 L, Globulin 2.9, Albumin/Globulin Ratio 1.0 L I have reviewed the lab results: Yes - RAD Interpretation Radiology Orders: 06/10/17 05:51 HEAD W/O CONTRAST [CT] Stat CHEST PORTABLE [RAD] Stat - EKG Interpretation Interpreted by ED Physician: Yes Type: 12 lead EKG - Medication Orders Current Medication Orders: Discontinued Medications Lactated Ringer's 1,290 ml/ IV (SUPPLIES) 1,290 mls @ 2,585.46 mls/hr IV ONCE ONE PRN Reason: 60 ML/KG/HR Stop: 06/10/17 05:54 Last Admin: 06/10/17 06:07 Dose: 2,585.46 mls/hr eMAR Start Stop Document 06/10/17 06:07 CNR (Rec: 06/10/17 06:09 CNR [facility]) Intravenous Solution Start Date 06/10/17 Start Time 06:09 Naloxone HCl (Narcan) 0.4 mg IVP STAT STA Stop: 06/10/17 06:07 Last Admin: 06/10/17 06:00 Dose: 0.4 mg IVP Administration Document 06/10/17 06:00 CNR (Rec: 06/10/17 06:09 CNR [id number]) Charges for Administration # of IVP Administrations 1 Naloxone HCl (Narcan) 0.4 mg IVP ONCE ONE Stop: 06/10/17 06:54 Last Admin: 06/10/17 06:58 Dose: 0.4 mg IVP Administration Document 06/10/17 06:58 CNR (Rec: 06/10/17 06:58 CNR [id number]) Charges for Administration # of IVP Administrations 1 - Scribe Statement The provider has reviewed the documentation as recorded by the Yvonne Woo Provider Scribe Attestation: All medical record entries made by the Yvonne were at my direction and personally dictated by me. I have reviewed the chart and agree that the record accurately reflects my personal performance of the history, physical exam, medical decision making, and the department course for this patient. I have also personally directed, reviewed, and agree with the discharge instructions and disposition. Disposition/Present on Arrival - Present on Arrival Any Indicators Present on Arrival: No History of DVT/PE: No History of Uncontrolled Diabetes: No Urinary Catheter: Yes History of Decub. Ulcer: No History Surgical Site Infection Following: None - Disposition Have Diagnosis and Disposition been Completed?: No Diagnosis: Altered mental status, Narcotic dependence Disposition Time: 07:05 Condition: STABLE Forms: [employer] ([place])
[2017-06-10] MEDS ORDERED: Naloxone 0.4 mg/ml Inj (Adult) ONE (06:00)
[2017-06-10] MEDS ORDERED: Naloxone 0.4 mg/ml Inj (Adult) IVP STA (06:06)
[2017-06-10 06:41] LABS: CALCIUM 8.3 mg/dL (8.4-10.5)
[2017-06-10 06:52] LABS: ALBUMIN 2.9 g/dL (3.0-4.8); TROPONIN I 0.09 ng/mL
[2017-06-10] MEDS ORDERED: Naloxone 0.4 mg/ml Inj (Adult) IVP ONE (06:53)
--- NOTE | 2017-06-10 06:53 | CT ---
EXAM: CT Head Without Intravenous Contrast CLINICAL HISTORY: 66 years old, female; Pain; Headache; Additional info: AMS TECHNIQUE: Axial computed tomography images of the head/brain without intravenous contrast. All CT scans at this facility use one or more dose reduction techniques, viz.: automated exposure control; ma/kV adjustment per patient size (including targeted exams where dose is matched to indication; i.e. head); or iterative reconstruction technique. 621 images are submitted.Sagittal and coronal MPR reformatted images are submitted. Axial images are submitted in brain and bone windows. COMPARISON: CT - HEAD W/O CONTRAST 2017-02-20 13:40 FINDINGS:Artifacts: Limited due to motion and misregistration artifacts. Brain: Cerebral and cerebellar volume loss. Patchy hypodensity is seen in the periventricular and subcortical white matter. No hemorrhage. Ventricles: Unremarkable. No ventriculomegaly. Bones/joints: Unremarkable. No acute fracture. Soft tissues: Unremarkable. Sinuses: Unremarkable. No acute sinusitis. Mastoid air cells: Patchy mastoid disease. Orbits: The globe and lens are intact. IMPRESSION: No evidence of an acute intracranial hemorrhage, midline shift or mass effect is identified.
[2017-06-10 06:54] LABS: INR 1.04 (0.93-1.08); PARTIAL THROMBOPLASTIN TIME 28.9 Seconds (25.1-36.5)
[2017-06-10 07:00] LABS: VENOUS BLOOD GAS BASE EXCESS -5.2 mmol/L (0.0-2.0); VENOUS BLOOD GAS PO2 177 mm/Hg (30-55); VENOUS BLOOD PH 7.32 (7.32-7.43)
--- NOTE | 2017-06-10 07:23 | ED PDOC ---
Physical Exam Vital Signs Reviewed: Yes Vital Signs Temp Pulse Resp BP Pulse Ox 06/10/17 09:41 85 16 84/40 L 100 06/10/17 08:09 98.2 F 89 20 87/46 L 93 L 06/10/17 06:40 93 H 12 96/48 L 06/10/17 05:49 97.8 F 96 H 21 90/41 L 98 Temperature: Afebrile Blood Pressure: Hypotensive Pulse: Regular Respiratory Rate: Normal Appearance: Positive for: Uncomfortable, Other (uncomfortable, arousable to voice, resting in bed, cooperative) Pain Distress: Mild (to respiratory, not to pain) Mental Status: Positive for: Confused, Lethargic, other (arousable to voice and to chest rub, but quickly falls asleep) Finger Stick Blood Glucose: 76 - Systems Exam Head: Present: Atraumatic, Normocephalic, Other (mild bi-temporal wasting) Pupils: Present: PERRL, Other (no nystagmus, no photophobia, sclera anicteric, visual field intact b/l) Extroacular Muscles: Present: EOMI Conjunctiva: Present: Normal Ears: Present: Normal Mouth: Present: Dry, Other (fair dentitions, dry oral mucosa, no drooling/ stridor, no exudate/lesions, no dysphonia) Pharnyx: Present: Normal Nose (External): Present: Atraumatic Nose (Internal): Present: Normal Inspection Neck: Present: Normal Range of Motion, Trachea Midline. No: Meningeal Signs, MIDLINE TENDERNESS Respiratory/Chest: Present: Other (coarse breath sounds with bibasiliar rales noted, no rhonchi, faint basiliar wheezing noted; + agonal breathing is noted, no accessory muscle use noted). No: Respiratory Distress, Accessory Muscle Use Cardiovascular: Present: Regular Rate and Rhythm, Normal S1, S2. No: Murmurs Abdomen: Present: Normal Bowel Sounds, Other (well nourished female, no focal tenderness, no masses/rebound/guarding/rigidity, no atkins's sign, no mcburney' s point tenderness). No: Tenderness, Distention, Peritoneal Signs Back: Present: Normal Inspection. No: CVA Tenderness, Midline Tenderness Upper Extremity: Present: Normal Inspection, Normal ROM, NORMAL PULSES. No: Cyanosis, Edema Lower Extremity: Present: Edema (b/l +3-4/5 pitting edema up to distal knee), NORMAL PULSES Neurological: Present: GCS=15, CN II-XII Intact Skin: Present: Warm, Dry, Other (cap refill ~ 1sec, no ulcerations, no petechiae , + pallor). No: Rashes Psychiatric: Present: Other (flat affect) Medical Decision Making ED Course and Treatment: 06/10/17 07:00 Patient endorsed to me by Dr. Aggarwal. Patient to be reevaluated and dispositioned accordingly. due to patients altered behavior and abnl lab findings, will recommend patient for admission 06/10/17 07:[address] Arash King, whom has been made aware of patient's condition and agrees with Emergency department management. Requests for consults Dr. Schulte (floor layer tile) and Dr. Roblero (communications professional), and to have patient admitted. pt with continued agonal breathing and persistent sleepiness/fatigue, will consult ICU for placement and likely start BIPAP for airway control 06/10/17 07:[address] Reynolds (ICU attending), whom has been made aware of patient 's condition and will come down to evaluate patient in the ED. Agrees with Emergency department management. 06/10/17 08:40 Dr. Reynolds saw patient at bedside and will admit pt to the ICU. 06/10/17 10:00 Dr Cardenas is at bedside pt's spouse is made aware of pt's medical results agrees with admission Re-evaluation Time: 09:30 Reassessment Condition: Unchanged - Critical Care Critical Care Minutes: 45 minutes Critical Care Time: Excluding Proc Time Narrative Critical Care (Text): 06/10/17 10:40 critical care time: 45min, excluding procedure time, excluding time teaching residents/students/mid-level providers; including initial eval/diagnosis, diagnostic interpretation, re-eval, consultations, final disposition - Lab Interpretations Lab Results: 06/10/17 06:45 06/10/17 06:00 Lab Results 06/10/17 08:36: Urine Opiates Screen Positive H, Urine Methadone Screen Negative , Ur Barbiturates Screen Negative, Ur Phencyclidine Scrn Negative, Ur Amphetamines Screen Negative, U Benzodiazepines Scrn Positive, U Oth Cocaine Metabols Negative, U Cannabinoids Screen Negative 06/10/17 08:36: Urine Color Yellow, Urine Appearance Clear, Urine pH 6.0, Ur Specific [place] 1.020, Urine Protein Negative, Urine Glucose (UA) Negative, Urine Ketones Negative, Urine Blood Negative, Urine Nitrate Negative, Urine Bilirubin Negative, Urine Urobilinogen 0.2, Ur Leukocyte Esterase Negative 06/10/17 08:00: NT-Pro-B Natriuret Pep 8950 H 06/10/17 08:00: Blood Type Cancelled, Antibody Screen Cancelled, BBK History Checked Cancelled 06/10/17 08:00: Ammonia 27 06/10/17 07:48: Alcohol, Quantitative < 10 06/10/17 06:45: pO2 177 H, VBG pH 7.32, VBG pCO2 40.0, VBG HCO3 20.6 L, VBG Total CO2 21.8 L, VBG O2 Sat (Calc) 99.1 H, VBG Base Excess -5.2 L, VBG Potassium 3.7, Glucose 78, Lactate 0.7, FiO2 21.0, Sodium 141.0, Chloride 114.0 H, Venous Blood Potassium 3.7 06/10/17 06:45: WBC 10.4 D, RBC 2.59 L, Hgb 8.4 L D, Hct 25.9 L, MCV 100.0, MCH 32.4, MCHC 32.4, RDW 17.4 H, Plt Count 186, MPV 9.5 06/10/17 06:00: Sodium 142, Potassium 5.4 H, Chloride 111 H, Carbon Dioxide 21, Anion Gap 16, BUN 27 H, Creatinine 1.1, Est GFR ( Amer) 60, Est GFR (Non- Af Amer) 49, Random Glucose 76, Calcium 8.3 L, Total Bilirubin 0.8, AST 46 H D, ALT 15, Alkaline Phosphatase 110, Lactate Dehydrogenase 1018 H, Total Creatine Kinase 71, Troponin I 0.09 D, Total Protein 5.8, Albumin 2.9 L, Globulin 2.9, Albumin/Globulin Ratio 1.0 L 06/10/17 06:00: PT 12.0, INR 1.04, APTT 28.9 I have reviewed the lab results: Yes Interpretation: Abnormal lab values (elevated BNP, abnl ABG, elevated LDH) - RAD Interpretation Narrative RAD Interpretations (Text): 06/10/17 07:[address] FINDINGS:Artifacts: Limited due to motion and misregistration artifacts. Brain: Cerebral and cerebellar volume loss. Patchy hypodensity is seen in the periventricular and subcortical white matter. No hemorrhage. Ventricles: Unremarkable. No ventriculomegaly. Bones/joints: Unremarkable. No acute fracture. Soft tissues: Unremarkable. Sinuses: Unremarkable. No acute sinusitis. Mastoid air cells: Patchy mastoid disease. Orbits: The globe and lens are intact. IMPRESSION: No evidence of an acute intracranial hemorrhage, midline shift or mass effect is identified. Director: Kellen Oneill MD 06/10/2017 08:00 Preliminary results of Chest X-ray shows hyperinflated lungs, cardiomegaly, and questionable right lower lobe infiltrate. Radiology Orders: 06/10/17 05:51 HEAD W/O CONTRAST [CT] Stat CHEST PORTABLE [RAD] Stat Managing Cognitive Engineer: Radiologist - EKG Interpretation EKG Interpretation (Text): 06/10/17 10:43 Sinus tach at 110 bpm, LAD, LBBB, no ectopy, inverted T in leads I, L, V5-6, no st changes, ABNL EKG; unchanged compare with old ekg 04/2017 Interpreted by ED Physician: Yes Type: 12 lead EKG Comparison: Similar to previous EKG - Medication Orders Current Medication Orders: Discontinued Medications Furosemide (Lasix) 40 mg IVP STAT STA Stop: 06/10/17 07:45 Lactated Ringer's 1,290 ml/ IV (SUPPLIES) 1,290 mls @ 2,585.46 mls/hr IV ONCE ONE PRN Reason: 60 ML/KG/HR Stop: 06/10/17 05:54 Last Admin: 06/10/17 06:07 Dose: 2,585.46 mls/hr eMAR Start Stop Document 06/10/17 06:07 CNR (Rec: 06/10/17 06:09 CNR [id number]) Intravenous Solution Start Date 06/10/17 Start Time 06:09 Ceftriaxone Sodium (Rocephin 1 Gram Ivpb) 1 gm in 100 mls @ 200 mls/hr IVPB STAT STA PRN Reason: Protocol Stop: 06/10/17 08:28 Last Admin: 06/10/17 09:09 Dose: 200 mls/hr eMAR Start Stop Document 06/10/17 09:09 SRE (Rec: 06/10/17 09:10 [id number]) Intravenous Solution Start Date 06/10/17 Start Time 09:10 End Date 06/10/17 End time 10:10 Total Infusion Time 60 Azithromycin (Zithromax 500mg In Ns) 500 mg in 250 mls @ 167 mls/hr IVPB STAT STA PRN Reason: Protocol Stop: 06/10/17 09:29 Naloxone HCl (Narcan) 0.4 mg IVP STAT STA Stop: 06/10/17 06:07 Last Admin: 06/10/17 06:00 Dose: 0.4 mg IVP Administration Document 06/10/17 06:00 CNR (Rec: 06/10/17 06:09 CNR [id number]) Charges for Administration # of IVP Administrations 1 Naloxone HCl (Narcan) 0.4 mg IVP ONCE ONE Stop: 06/10/17 06:54 Last Admin: 06/10/17 06:58 Dose: 0.4 mg IVP Administration Document 06/10/17 06:58 CNR (Rec: 06/10/17 06:58 CNR [id number]) Charges for Administration # of IVP Administrations 1 - Scribe Statement The provider has reviewed the documentation as recorded by the Yvonne Gonzalez Provider Scribe Attestation: All medical record entries made by the Scribe were at my direction and personally dictated by me. I have reviewed the chart and agree that the record accurately reflects my personal performance of the history, physical exam, medical decision making, and the department course for this patient. I have also personally directed, reviewed, and agree with the discharge instructions and disposition. Disposition/Present on Arrival - Present on Arrival Any Indicators Present on Arrival: No History of DVT/PE: No History of Uncontrolled Diabetes: No Urinary Catheter: Yes History of Decub. Ulcer: No History Surgical Site Infection Following: None - Disposition Have Diagnosis and Disposition been Completed?: Yes Diagnosis: Altered mental status, Narcotic dependence, At risk for sepsis, Respiratory distress, Elevated troponin, Anemia, Congestive heart failure (CHF) Disposition: HOSPITALIZED Disposition Time: 08:50 Patient Plan: Admission, ICU Patient Problems: Current Active Problems Problem Status Onset Altered mental status Acute Narcotic dependence Acute Condition: FAIR
[2017-06-10 07:39] LABS: HEMOGLOBIN 8.4 g/dL (12.0-16.0); MEAN CORPUSCULAR HEMOGLOBIN 32.4 pg (25.0-35.0); MEAN CORPUSCULAR HGB CONC 32.4 g/dl (31.0-37.0); MEAN PLATELET VOLUME 9.5 fl (7.0-11.0); RBC 2.59 10^6/uL (3.5-6.1); RED CELL DISTRIBUTION WIDTH 17.4 % (11.5-14.5); WHITE BLOOD COUNT 10.4 10^3/ul (4.5-11.0)
[2017-06-10] MEDS ORDERED: cefTRIAXone 1 gm 1 GM/100 ML BAG IVPB STA (07:59)
[2017-06-10] MEDS ORDERED: Azithromycin 500MG/NS 250ml 500 MG/250 ML BAG IVPB STA (08:00)
[2017-06-10 08:48] LABS: URINE BILIRUBIN NEGATIVE (NEGATIVE); URINE BLOOD NEGATIVE (NEGATIVE); URINE GLUCOSE (UA) NEGATIVE (NEGATIVE); URINE LEUKOCYTE ESTERASE NEGATIVE Leu/uL (NEGATIVE); URINE UROBILINOGEN 0.2 E.U./dL (<1 E.U./dL)
[2017-06-10 08:52] LABS: URINE COLOR YELLOW (YELLOW)
[2017-06-10 08:53] LABS: URINE APPEARANCE CLEAR (CLEAR); URINE PROTEIN NEGATIVE mg/dL (<30 mg/dL)
[2017-06-10 09:13] LABS: ARTERIAL BLOOD GAS HCO3 21.4 mmol/L (21-28); ARTERIAL BLOOD GAS HEMOGLOBIN 7.9 g/dL (11.7-17.4); ARTERIAL BLOOD GAS O2 CAPACITY 10.9 mL/dl (16-24); ARTERIAL BLOOD GAS O2 CONTENT 10.7 ML/dl (15-23); ARTERIAL BLOOD GAS O2 SAT 98.6 % (95-98); ARTERIAL BLOOD GAS PCO2 51 mm/Hg (35-45); ARTERIAL BLOOD GAS PH 7.23 (7.35-7.45)
[2017-06-10 09:46] LABS: BARBITURATES, UR NEGATIVE (NEGATIVE); BENZODIAZEPINES, UR POSITIVE (NEGATIVE); OPIATES, UR POSITIVE (NEGATIVE); PHENCYCLIDINE, UR NEGATIVE (NEGATIVE)
--- NOTE | 2017-06-10 09:58 | RAD ---
HISTORY: fever COMPARISON: No prior. FINDINGS: Re- demonstrated is left subclavian central access line with tip in the SVC LUNGS: The interstitial markings are increased and coarsened with somewhat micronodular appearance. Rule out developing interstitial infiltrates. PLEURA: No significant pleural effusion identified, no pneumothorax apparent. CARDIOVASCULAR: Heart appears mildly enlarged OSSEOUS STRUCTURES: Chronic unfused fracture deformity mid right humeral shaft. VISUALIZED UPPER ABDOMEN: Normal. OTHER FINDINGS: None. IMPRESSION: The interstitial markings are increased and coarsened with somewhat micronodular appearance. Rule out developing interstitial infiltrates.
[2017-06-10] MEDS: Dextrose 5%/0.45% NS 1,000 ML IV SCH (17:20)
[2017-06-10 18:50] LABS: ARTERIAL BLOOD GAS HCO3 21.8 mmol/L (21-28); ARTERIAL BLOOD GAS HEMOGLOBIN 10.4 g/dL (11.7-17.4); ARTERIAL BLOOD GAS O2 CAPACITY 14.3 mL/dl (16-24); ARTERIAL BLOOD GAS O2 CONTENT 13.2 ML/dl (15-23); ARTERIAL BLOOD GAS O2 SAT 92.4 % (95-98); ARTERIAL BLOOD GAS PCO2 57 mm/Hg (35-45); ARTERIAL BLOOD GAS TCO2 23.5 mmol.L (22-28)
[2017-06-10 18:52] LABS: ARTERIAL BLOOD GAS PH 7.19 (7.35-7.45)
[2017-06-10] MEDS ORDERED: Propofol 10 mg/ml Inj (20 ML) ONE (19:03)
[2017-06-10] MEDS ORDERED: Propofol 10 mg/ml Inj (20 ML) IVP ONE (19:31)
[2017-06-10] MEDS: Budesonide 0.5 mg/2 ml Inhal Susp UD IH SCH (19:50)
[2017-06-10] MEDS: Albuterol-Ipratrop 3 mg / 0.5 (3 ml) UD IH SCH (19:50)
[2017-06-10] MEDS: Propofol 10 mg/ml 1,000 MG/100 ML VIAL IV PRN ×2 (20:45→21:00)
[2017-06-10 21:31] LABS: HEMOGLOBIN 10.3 g/dL (12.0-16.0); MEAN CELL VOLUME 97.9 fl (80.0-105.0); MEAN CORPUSCULAR HEMOGLOBIN 31.6 pg (25.0-35.0); MEAN CORPUSCULAR HGB CONC 32.3 g/dl (31.0-37.0); MEAN PLATELET VOLUME 9.1 fl (7.0-11.0); RBC 3.26 10^6/uL (3.5-6.1); RED CELL DISTRIBUTION WIDTH 19.1 % (11.5-14.5); WHITE BLOOD COUNT 4.8 10^3/ul (4.5-11.0)
[2017-06-10 21:31] LABS: ARTERIAL BLOOD GAS HCO3 20.6 mmol/L (21-28); ARTERIAL BLOOD GAS HEMOGLOBIN 9.5 g/dL (11.7-17.4); ARTERIAL BLOOD GAS O2 CAPACITY 13.9 mL/dl (16-24); ARTERIAL BLOOD GAS O2 CONTENT 13.8 ML/dl (15-23); ARTERIAL BLOOD GAS O2 SAT 99.5 % (95-98); ARTERIAL BLOOD GAS PCO2 48 mm/Hg (35-45); ARTERIAL BLOOD GAS PH 7.24 (7.35-7.45); ARTERIAL BLOOD GAS TCO2 22.1 mmol.L (22-28)
--- NOTE | 2017-06-10 21:39 | CARD ---
APPROVED REPORT EKG Measurement Heart [id number] <Conclusion> Sinus tachycardia Left bundle branch block Abnormal ECG
[2017-06-10] MEDS: MethylPREDNISolone 40 mg Vial IVP SCH (21:58)
[2017-06-11] MEDS: Albuterol-Ipratrop 3 mg / 0.5 (3 ml) UD IH SCH ×4 (02:03→20:15)
--- NOTE | 2017-06-11 02:37 | CON ---
DATE: 06/10/2017 ASSISTANT VICE PRESIDENT NOTE LOCATION: At [facility]. REQUESTING PHYSICIAN: Waldo Stiles MD. CHIEF COMPLAINT: The patient presented with altered mental status, shortness of breath. HISTORY OF PRESENT ILLNESS: Ms. Tanner, she is a 66-year-old female who presented to the emergency room with altered mental status and shortness of breath. Patient's stated that this morning, the patient was not responding appropriately. He felt that she may have taken a little bit too much of her pain meds. The patient presented to the emergency room. She has respiratory failure requiring BiPAP for appropriate ventilation and is responsive to the spoken word. She has occasional cough. No fever or chills. No nausea or vomiting. No chest pain. No abdominal pain. No diarrhea. She stated that she has been weak and shortness of breath has been occurring over the last several days. But the states that she may have taken her morphine and Xanax and that may be causing the problem because she has chronic pain. PAST MEDICAL HISTORY: Is noted to be hypertension, chronic pain, SD, COPD, congestive heart failure, cardiomyopathy, EtOH abuse, colitis and lower extremity swelling. ALLERGIES: SHE HAS ALLERGIES TO BENADRYL, ASPIRIN AND ANESTHESIA ALLERGIES. MEDICATIONS: Her medications could be evaluated as per the nurse's intake form. SOCIAL HISTORY: Patient is a smoker, has a history of EtOH abuse, but no drug abuse. FAMILY HISTORY: Noncontributory. REVIEW OF SYSTEMS: CONSTITUTIONAL: All negative. HEENT: All negative. CARDIOVASCULAR: All negative. RESPIRATORY: Patient presented with shortness of breath. GI: All negative. : All negative. NEUROPSYCHIATRIC: Patient has altered mental status. ENDOCRINE: All negative. IMMUNOLOGIC: All negative. HEMATOLOGIC: All negative. INTEGRITY: All negative. PHYSICAL EXAMINATION: VITAL SIGNS: Note that her temperature is 97.8, her pulse is 96, respirations are 12 and her BP is 96/48. O2 saturation is 98% on BiPAP. HEENT: Head is atraumatic, normocephalic. Eyes reactive to light. Ear, nose and throat seemed to be within normal limits. NECK: Supple. No JVD. No thyroid enlargement. No lymph nodes. HEART: Has regular rate and rhythm. Normal S1, S2. LUNGS: Reveal rare rhonchi at the bases with decreased breath sounds bilaterally. ABDOMEN: Soft, nontender. Normal bowel sounds. No organomegaly noted. GENITALIA AND RECTAL: Deferred. MUSCULOSKELETAL: No joint deformities. EXTREMITIES: Reveal positive lower extremity edema. NEUROLOGIC: She does have some altered mental status, but does respond to the spoken word. LABORATORY DATA: As far as her laboratories are concerned, her sodium is 142, potassium 5.4, chloride 111, CO2 of 21, BUN of 27, creatinine of 1.1 and a glucose of 76. Her white count is 10.4, hemoglobin is 8.4 and hematocrit 25.9 with platelets of 186,000. Arterial blood gas reveals a pH of 7.23, pCO2 of 51, pO2 of 86. Toxicology is positive for opioids. As far as her chest x-ray, shows diffuse interstitial changes with increase in the right lower lobe area, may be infectious in etiology. IMPRESSION: My impression is that this patient has right lower lobe pneumonia, has respiratory failure, exacerbation of her chronic obstructive pulmonary disease with hypercapnia and anemia. Patient has respiratory acidosis as well as history of ethyl alcohol abuse, colitis, chronic pain, congestive heart failure, cardiomyopathy with an ejection fraction which is severely reduced, and . Note that the patient did present with altered mental status most likely secondary to hypercapnia, but could be associated with over-medication with her pain medications. PLAN: The patient is on BiPAP / with O2 support. She has been admitted to the Intensive Care Unit. She has been given Rocephin as well as Zithromax as far as antibiotics. The patient also has been given several doses of Narcan. She is on Lasix and we will start bronchodilators. Roscoe Reynolds MD
[2017-06-11] MEDS: Propofol 10 mg/ml 1,000 MG/100 ML VIAL IV PRN (03:50)
[2017-06-11 05:22] LABS: ARTERIAL BLOOD GAS HCO3 21.1 mmol/L (21-28); ARTERIAL BLOOD GAS O2 CONTENT 13.9 ML/dl (15-23); ARTERIAL BLOOD GAS O2 SAT 99.5 % (95-98); ARTERIAL BLOOD GAS PCO2 46 mm/Hg (35-45); ARTERIAL BLOOD GAS PH 7.27 (7.35-7.45); ARTERIAL BLOOD GAS TCO2 22.5 mmol.L (22-28)
[2017-06-11] MEDS: Dextrose 5%/0.45% NS 1,000 ML IV SCH ×2 (06:23→20:55)
[2017-06-11] MEDS ORDERED: Sodium Chloride 0.9% 500 ML IV STA (06:54)
[2017-06-11 07:07] LABS: GRAN # 7.26 (1.4-6.5); GRAN % 89.2 % (50.0-68.0); HEMOGLOBIN 11.2 g/dL (12.0-16.0); LYMPH # 0.2 (1.2-3.4); LYMPH % 2.7 % (22.0-35.0); MEAN CELL VOLUME 97.5 fl (80.0-105.0); MEAN CORPUSCULAR HEMOGLOBIN 31.1 pg (25.0-35.0); MEAN CORPUSCULAR HGB CONC 31.9 g/dl (31.0-37.0); MEAN PLATELET VOLUME 9.9 fl (7.0-11.0); MONO # 0.7 (0.1-0.6); MONO % 8.1 % (1.0-6.0); PLATELET COUNT 157 10^3/uL (120.0-450.0); RED CELL DISTRIBUTION WIDTH 19.6 % (11.5-14.5); WHITE BLOOD COUNT 8.1 10^3/ul (4.5-11.0)
[2017-06-11] MEDS ORDERED: DOBUTamine 500mg/250ml D5W 500 MG/250 ML BAG IV PRN (07:25)
[2017-06-11 07:40] LABS: ALBUMIN 2.6 g/dL (3.0-4.8); ALT/SGPT 18 U/L (7-56); AST/SGOT 25 U/L (14-36); BLOOD UREA NITROGEN 16 mg/dL (7-21); CALCIUM 8.4 mg/dL (8.4-10.5); GFR AFRICAN-AMERICAN > 60; GFR NON-AFRICAN AMERICAN > 60
[2017-06-11] MEDS: Budesonide 0.5 mg/2 ml Inhal Susp UD IH SCH ×2 (07:40→20:15)
[2017-06-11] MEDS: Azithromycin 500MG/NS 250ml 500 MG/250 ML BAG IVPB SCH (08:07)
[2017-06-11 08:34] LABS: BAND 4 % (0-2); LYMPHOCYTE 11 % (22.0-35.0); METAMYELOCYTE 8 %; MONOCYTE 2 % (1.0-6.0); NEUTROPHIL 75 % (50.0-70.0)
[2017-06-11 08:36] LABS: ANISOCYTOSIS 1+; PLATELET ESTIMATE NORMAL (NORMAL)
--- NOTE | 2017-06-11 09:19 | RAD ---
HISTORY: ET tube, NGT placement COMPARISON: 06/10/2017 FINDINGS: LUNGS: There is retrocardiac infiltrate at the left lung base that obscures the diaphragm. PLEURA: No significant pleural effusion identified, no pneumothorax apparent. CARDIOVASCULAR: Normal. OSSEOUS STRUCTURES: No significant abnormalities. VISUALIZED UPPER ABDOMEN: Normal. OTHER FINDINGS: The endotracheal tube and nasogastric tube are in satisfactory position. IMPRESSION: Retrocardiac infiltrate at the left lung base obscuring the diaphragm
--- NOTE | 2017-06-11 09:33 | RAD ---
HISTORY: in AM COMPARISON: 06/10/2017 FINDINGS: LUNGS: There is vascular congestion. The infiltrate at the left lung base has improved. Part of the diaphragm is now visible. PLEURA: No significant pleural effusion identified, no pneumothorax apparent. CARDIOVASCULAR: Normal. OSSEOUS STRUCTURES: No significant abnormalities. VISUALIZED UPPER ABDOMEN: Normal. OTHER FINDINGS: Endotracheal and nasogastric tubes in satisfactory position IMPRESSION: Improvement in left lower lobe infiltrate
[2017-06-11] MEDS: cefTRIAXone 1 gm 1 GM/100 ML BAG IVPB SCH (10:02)
[2017-06-11] MEDS: MethylPREDNISolone 40 mg Vial IVP SCH ×2 (10:03→21:02)
--- NOTE | 2017-06-11 10:24 | HP ---
CHIEF COMPLAINT: Unresponsiveness, altered mental status. HISTORY OF PRESENT ILLNESS: This is a 66-year-old woman who presented to the emergency room via ambulance after her spouse-equivalent of many years called, finding her unresponsive, lethargic, altered mental status, unable for him to arouse her. She had prescriptions for Xanax for her chronic anxiety disorder as well as morphine for her chronic pain condition. She had been urging him quite a bit lately to give her more of the medicines, and he fears she may have gotten into the medications and taken too many. In the emergency room, doses of Narcan were given with significant response. Patient lightened up, woke up, but then became groggy and lethargic, perhaps due to the Narcan wearing off or the alprazolam on board. So I was notified. We asked for the hot strip mill supervisor to evaluate her for admission to ICU, especially with the possible need for additional doses of Narcan. So she was accepted to ICU and admitted. 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 There have been several hospitalizations for congestive heart failure for the last 5 to 6 years that I know her. She is status post myocardial infarction, has a history of hypertension, anxiety, alcoholic bone marrow suppression, nonhealing fracture of the right humerus with separation of the midshaft. She is status post cardiac arrest following anesthesia for a surgical repair of the humeral shaft fracture several years ago and understandably has refused surgery since then. She is also noted to have a history of follicular lymphoma and rather severe COPD. SOCIAL HISTORY: She has not had any alcoholic beverages in the last several months. She does however continue to smoke. ALLERGIES: SHE SAID SHE IS ALLERGIC TO BENADRYL, WHICH CAUSES SHORTNESS OF BREATH AND HYPERTENSION IN THE PAST. THERE IS ALSO REPORTED ADVERSE REACTION TO SOME ANESTHETIC AGENTS, GIVEN HER CARDIAC ARREST NOTED ABOVE. HOME MEDICATIONS: See the attached list. REVIEW OF SYSTEMS: Not obtainable because of patient's lethargic state in intensive care with BiPAP mask in place. PHYSICAL EXAMINATION: GENERAL: Patient is seen in intensive care unit, ICU bed 7, with her spouse, Nickolas, at the bedside. She is arousable with touch and stimulation. HEENT: Pupils are not pinpoint, but small and very sluggish. Mucous membranes are pink. Conjunctivae are pink. Mucous membranes are moist. NECK: Thin, supple with no mass. There is no JVD. Thyroid is not palpable. LUNGS: Show fair aeration in the right and left. Decreased breath sounds and prolonged expiratory phase with COPD. HEART: Regular, borderline tachycardic in the 90s. ABDOMEN: Thin. Nontender. EXTREMITIES: Right humerus midshaft separation, nonhealing fracture is present. Lower extremities showed no edema. IMPRESSION: 1. Altered mental status, suspected drug overdose, accidental, prescription drug overdose related to opiates and benzodiazepine. 2. Congestive heart failure with ejection fracture of less than 15 %. 3. Alcoholic cardiomyopathy. 4. Alcoholic bone marrow suppression. 5. Severe anxiety. 6. Chronic pain. 7. Hypertension. 8. Non-healing fracture of the right humerus. 9. Status post lymphoma. 10. Chronic obstructive pulmonary disease. 11. Ongoing tobacco use disorder. 12. History of recurrent urinary tract infections. 13 History of pneumonia on several occasions. PLAN: Patient is already in intensive care. We gave her maximal aggressive treatment on BiPAP respiratory support. Pulmonary consultation with Dr. Castelan and Cardiology consultation with Dr. Schulte have already been called. Both physicians know her from prior hospitalizations. Case was discussed at length with Nickolas, her spouse-equivalent, at the bedside. Overall prognosis is poor given the general poor state of health. As in the past, we will continue full aggressive efforts, as patient's son who is the Power of Medical Front Desk Coordinator is insistent that all efforts be made to resuscitate his mother in such an event. Tripp King MD [id number]
--- NOTE | 2017-06-11 10:58 | CP.CCUPN ---
<Jazmine Billsja - Last Filed: 06/11/17 13:33> CCU Subjective - Physician Review Events Since Last Encounter (Free Text): 06/11/17 10:52 Discontinued propofol drip. cpap weaning trials currently. Started dobutamine drip. Subjective (Free Text): 06/11/17 10:53 Pt having respiratory distress overnight, with low pulse ox, intubated. BP low 80s/40s, given 250 ml bolus. Febrile overnight, Tmax 102F, given rectal tylenol. Pt opening eyes spontaneously and moving all extremities. ROS limited as pt is intubated and sedated. Critical Care Time Spent (in minutes): 55 CCU Objective - Vital Signs / Intake & Output Vital Signs (Last 4 hours): Vital Signs Temp Pulse Resp BP Pulse Ox 06/11/17 09:00 102 H 105/38 L 06/11/17 08:35 99.0 F 114 H 17 100 06/11/17 08:30 99.0 F 117 H 105/38 L 100 06/11/17 08:20 98.8 F 114 H 100 06/11/17 08:10 98.8 F 107 H 100 06/11/17 08:00 98.8 F 96 H 99/53 L 100 06/11/17 07:50 98.8 F 94 H 100 06/11/17 07:40 98.8 F 66 100 06/11/17 07:30 98.8 F 92 H 97/49 L 100 06/11/17 07:20 98.8 F 68 100 06/11/17 07:10 98.8 F 65 100 06/11/17 07:00 98.8 F 68 90/44 L 100 06/11/17 06:59 98.8 F 71 91/48 L 100 Intake and Output (Last 8hrs): Intake & Output 06/10/17 06/11/17 06/11/17 22:59 06:59 14:59 Intake Total 2640 100 929 Output Total 700 500 Balance 1940 100 429 Intake: IV 2100 100 929 Left upper chest 2000 900 Oral 0 Blood Product 540 Apheresis Rbc Cp2d As3 Lr 270 2nd Unit [id number] Output: Urine 700 500 Urethral (Cota) 700 500 Other: # Bowel Movements 1 - Physical Exam Physical Exam Limitations: Positive for: Other (sedated) Head: Positive for: Atraumatic, Normocephalic, Other (mild bi-temporal wasting) Pupils: Positive for: PERRL, Other (no nystagmus, no photophobia, sclera anicteric) Conjunctiva: Positive for: Normal Ears: Positive for: Normal Mouth: Positive for: Moist Mucous Membranes, Other (intubated on PRVC settings) Pharnyx: Positive for: Normal Nose (External): Positive for: Atraumatic Nose (Internal): Positive for: Normal Inspection Neck: Positive for: Normal Range of Motion. Negative for: Meningeal Signs, MIDLINE TENDERNESS, JVD Respiratory/Chest: Positive for: Decreased Breath Sounds. Negative for: Respiratory Distress, Accessory Muscle Use Cardiovascular: Positive for: Regular Rate and Rhythm, Normal S1, S2. Negative for: Murmurs Abdomen: Positive for: Normal Bowel Sounds. Negative for: Tenderness, Distention, Peritoneal Signs, Rebound, Guarding, McBurney's Point Tender, Mass/ Organomegaly Back: Positive for: Normal Inspection. Negative for: CVA Tenderness, Midline Tenderness Upper Extremity: Positive for: Normal Inspection, Normal ROM, NORMAL PULSES. Negative for: Cyanosis, Edema Lower Extremity: Positive for: Edema (b/l +3/5 pitting edema up to distal knee) , NORMAL PULSES, Capillary Refill < 2 s. Negative for: Swelling, Erythema Neurological: Positive for: GCS=15, CN II-XII Intact Skin: Positive for: Warm, Dry, Pale. Negative for: Rashes Psychiatric: Positive for: Other (sedated) - Medications Active Medications: Active Medications Generic Name Dose Route Start Last Admin Trade Name Freq PRN Reason Stop Dose Admin Acetaminophen 650 mg 06/10/17 17:04 06/10/17 17:18 Tylenol 650 Mg Supp RC 650 mg Q6H PRN Administration Fever >100.4 F Albuterol/Ipratropium 3 ml 06/10/17 20:00 06/11/17 07:39 Duoneb 3 Mg/0.5 Mg (3 Ml) Ud IH 3 ml [id number] BELEM Administration Budesonide 0.5 mg 06/10/17 20:00 06/11/17 07:40 Pulmicort Respules IH 0.5 mg [id number] BELEM Administration Heparin Sodium (Porcine) 5,000 units 06/10/17 22:00 06/10/17 21:59 Heparin SC 5,000 units Q12 BELEM Administration Protocol Ceftriaxone Sodium 1 gm in 100 mls @ 100 mls/hr 06/11/17 10:00 06/11/17 10:02 Rocephin 1 Gram Ivpb IVPB 06/15/17 10:59 100 mls/hr DAILY BELEM Administration Protocol Dextrose/Sodium Chloride 1,000 mls @ 75 mls/hr 06/10/17 17:15 06/11/17 06:23 Dextrose 5%/0.45% Ns 1000 Ml IV 75 mls/hr .[id number] BELEM Administration Propofol 1,000 mg in 100 mls @ 1.296 mls/hr 06/10/17 20:40 06/11/17 07:04 Diprivan IV 19.28 mcg/kg/min .Q24H PRN 5 mls/hr TITRATE PER MD ORDER Titration Protocol 5 MCG/KG/MIN Azithromycin 500 mg in 250 mls @ 250 mls/hr 06/11/17 07:15 06/11/17 08:07 Zithromax 500mg In Ns IVPB 250 mls/hr Q24H BELEM Administration Protocol Dobutamine HCl/Dextrose 500 mg in 250 mls @ 2.592 mls/hr 06/11/17 07:25 06/11 09:00 Dobutamine/Dextrose 5% 500mg/250ml IV 2 mcg/kg/min .Q24H PRN 2.592 mls/hr TITRATE PER PROTOCOL Administration Protocol 2 MCG/KG/MIN Methylprednisolone 40 mg 06/10/17 22:00 06/11/17 10:03 Solu-Medrol IVP 40 mg Q12 BELEM Administration Pantoprazole Sodium 40 mg 06/11/17 10:00 06/11/17 10:03 Protonix Inj IVP 40 mg DAILY BELEM Administration - Patient Studies Lab Studies: Lab Studies 06/11/17 06/11/17 06/11/17 Range/Units 06:33 05:40 05:40 WBC 8.1 D (4.5-11.0) 10^3/ul RBC 3.60 (3.5-6.1) 10^6/uL Hgb 11.2 L (12.0-16.0) g/dL Hct 35.1 L (36.0-48.0) % MCV 97.5 (80.0-105.0) fl MCH 31.1 (25.0-35.0) pg MCHC 31.9 (31.0-37.0) g/dl RDW 19.6 H (11.5-14.5) % Plt Count 157 (120.0-450.0) 10^3/uL MPV 9.9 (7.0-11.0) fl Gran % 89.2 H (50.0-68.0) % Lymph % (Auto) 2.7 L (22.0-35.0) % [place] % (Auto) 8.1 H (1.0-6.0) % Eos % (Auto) 0.0 L (1.5-5.0) % Baso % (Auto) 0.0 (0.0-3.0) % Gran # 7.26 H (1.4-6.5) Lymph # (Auto) 0.2 L (1.2-3.4) [place] # (Auto) 0.7 H (0.1-0.6) Eos # (Auto) 0.0 (0.0-0.7) Baso # (Auto) 0.00 (0.0-2.0) K/mm3 Neutrophils % (Manual) 75 H (50.0-70.0) % Band Neutrophils % 4 H (0-2) % Lymphocytes % (Manual) 11 L (22.0-35.0) % Monocytes % (Manual) 2 (1.0-6.0) % Metamyelocytes % 8 % Platelet Evaluation Normal (NORMAL) Anisocytosis (manual) 1+ pCO2 (35-45) mm/Hg pO2 (80-100) mm/Hg HCO3 (21-28) mmol/L ABG pH (7.35-7.45) ABG Total CO2 (22-28) mmol.L ABG O2 Saturation (95-98) % ABG O2 Content (15-23) ML/dl ABG Base Excess (-2.0-3.0) mmol/L ABG Hemoglobin (11.7-17.4) g/dL ABG Carboxyhemoglobin (0.5-1.5) % POC ABG HHb (Measured) (0-5) % ABG Methemoglobin (0.0-3.0) % ABG O2 Capacity (16-24) mL/dl Hgb O2 Saturation (95.0-98.0) % FiO2 % Sodium 146 (132-148) mmol/L Potassium 3.7 (3.6-5.0) mmol/L Chloride 115 H (98-107) mmol/L Carbon Dioxide 18 L (21-33) mmol/L Anion Gap 16 (10-20) BUN 16 (7-21) mg/dL Creatinine 0.7 (0.7-1.2) mg/dl Est GFR ( Amer) > 60 Est GFR (Non-Af Amer) > 60 POC Glucose (mg/dL) 115 H (65-110) mg/dL Random Glucose 115 H (70-110) mg/dL Calcium 8.4 (8.4-10.5) mg/dL Total Bilirubin 0.3 (0.2-1.3) mg/dL AST 25 (14-36) U/L ALT 18 (7-56) U/L Alkaline Phosphatase 95 (38-126) U/L Total Protein 5.3 L (5.8-8.3) g/dL Albumin 2.6 L (3.0-4.8) g/dL Globulin 2.7 gm/dL Albumin/Globulin Ratio 1.0 L (1.1-1.8) Blood Type Antibody Screen Crossmatch BBK History Checked 06/11/17 06/10/17 06/10/17 Range/Units 05:00 23:30 21:25 WBC 4.8 D (4.5-11.0) 10^3/ul RBC 3.26 L (3.5-6.1) 10^6/uL Hgb 10.3 L (12.0-16.0) g/dL Hct 31.9 L (36.0-48.0) % MCV 97.9 (80.0-105.0) fl MCH 31.6 (25.0-35.0) pg MCHC 32.3 (31.0-37.0) g/dl RDW 19.1 H (11.5-14.5) % Plt Count 157 (120.0-450.0) 10^3/uL MPV 9.1 (7.0-11.0) fl Gran % (50.0-68.0) % Lymph % (Auto) (22.0-35.0) % [place] % (Auto) (1.0-6.0) % Eos % (Auto) (1.5-5.0) % Baso % (Auto) (0.0-3.0) % Gran # (1.4-6.5) Lymph # (Auto) (1.2-3.4) [place] # (Auto) (0.1-0.6) Eos # (Auto) (0.0-0.7) Baso # (Auto) (0.0-2.0) K/mm3 Neutrophils % (Manual) (50.0-70.0) % Band Neutrophils % (0-2) % Lymphocytes % (Manual) (22.0-35.0) % Monocytes % (Manual) (1.0-6.0) % Metamyelocytes % % Platelet Evaluation (NORMAL) Anisocytosis (manual) pCO2 46 H (35-45) mm/Hg pO2 155.0 H (80-100) mm/Hg HCO3 21.1 (21-28) mmol/L ABG pH 7.27 L (7.35-7.45) ABG Total CO2 22.5 (22-28) mmol.L ABG O2 Saturation 99.5 H (95-98) % ABG O2 Content 13.9 L (15-23) ML/dl ABG Base Excess -5.6 L (-2.0-3.0) mmol/L ABG Hemoglobin 10.0 L (11.7-17.4) g/dL ABG Carboxyhemoglobin 1.4 (0.5-1.5) % POC ABG HHb (Measured) 0.5 (0-5) % ABG Methemoglobin 1.4 (0.0-3.0) % ABG O2 Capacity 14.0 L (16-24) mL/dl Hgb O2 Saturation 96.7 (95.0-98.0) % FiO2 60.0 % Sodium (132-148) mmol/L Potassium (3.6-5.0) mmol/L Chloride (98-107) mmol/L Carbon Dioxide (21-33) mmol/L Anion Gap (10-20) BUN (7-21) mg/dL Creatinine (0.7-1.2) mg/dl Est GFR ( Amer) Est GFR (Non-Af Amer) POC Glucose (mg/dL) 91 (65-110) mg/dL Random Glucose (70-110) mg/dL Calcium (8.4-10.5) mg/dL Total Bilirubin (0.2-1.3) mg/dL AST (14-36) U/L ALT (7-56) U/L Alkaline Phosphatase (38-126) U/L Total Protein (5.8-8.3) g/dL Albumin (3.0-4.8) g/dL Globulin gm/dL Albumin/Globulin Ratio (1.1-1.8) Blood Type Antibody Screen Crossmatch BBK History Checked 06/10/17 06/10/17 06/10/17 Range/Units 21:15 18:47 16:24 WBC (4.5-11.0) 10^3/ul RBC (3.5-6.1) 10^6/uL Hgb (12.0-16.0) g/dL Hct (36.0-48.0) % MCV (80.0-105.0) fl MCH (25.0-35.0) pg MCHC (31.0-37.0) g/dl RDW (11.5-14.5) % Plt Count (120.0-450.0) 10^3/uL MPV (7.0-11.0) fl Gran % (50.0-68.0) % Lymph % (Auto) (22.0-35.0) % [place] % (Auto) (1.0-6.0) % Eos % (Auto) (1.5-5.0) % Baso % (Auto) (0.0-3.0) % Gran # (1.4-6.5) Lymph # (Auto) (1.2-3.4) [place] # (Auto) (0.1-0.6) Eos # (Auto) (0.0-0.7) Baso # (Auto) (0.0-2.0) K/mm3 Neutrophils % (Manual) (50.0-70.0) % Band Neutrophils % (0-2) % Lymphocytes % (Manual) (22.0-35.0) % Monocytes % (Manual) (1.0-6.0) % Metamyelocytes % % Platelet Evaluation (NORMAL) Anisocytosis (manual) pCO2 48 H 57 H (35-45) mm/Hg pO2 303.0 H 58.0 L (80-100) mm/Hg HCO3 20.6 L 21.8 (21-28) mmol/L ABG pH 7.24 L 7.19 L* (7.35-7.45) ABG Total CO2 22.1 23.5 (22-28) mmol.L ABG O2 Saturation 99.5 H 92.4 L (95-98) % ABG O2 Content 13.8 L 13.2 L (15-23) ML/dl ABG Base Excess -6.6 L -6.6 L (-2.0-3.0) mmol/L ABG Hemoglobin 9.5 L 10.4 L (11.7-17.4) g/dL ABG Carboxyhemoglobin 1.2 2.2 H (0.5-1.5) % POC ABG HHb (Measured) 0.5 7.4 H (0-5) % ABG Methemoglobin 1.1 0.6 (0.0-3.0) % ABG O2 Capacity 13.9 L 14.3 L (16-24) mL/dl Hgb O2 Saturation 97.2 89.8 L (95.0-98.0) % FiO2 100.0 80.0 % Sodium (132-148) mmol/L Potassium (3.6-5.0) mmol/L Chloride (98-107) mmol/L Carbon Dioxide (21-33) mmol/L Anion Gap (10-20) BUN (7-21) mg/dL Creatinine (0.7-1.2) mg/dl Est GFR ( Amer) Est GFR (Non-Af Amer) POC Glucose (mg/dL) 70 (65-110) mg/dL Random Glucose (70-110) mg/dL Calcium (8.4-10.5) mg/dL Total Bilirubin (0.2-1.3) mg/dL AST (14-36) U/L ALT (7-56) U/L Alkaline Phosphatase (38-126) U/L Total Protein (5.8-8.3) g/dL Albumin (3.0-4.8) g/dL Globulin gm/dL Albumin/Globulin Ratio (1.1-1.8) Blood Type Antibody Screen Crossmatch BBK History Checked 06/10/17 06/10/17 Range/Units 11:07 08:45 WBC (4.5-11.0) 10^3/ul RBC (3.5-6.1) 10^6/uL Hgb (12.0-16.0) g/dL Hct (36.0-48.0) % MCV (80.0-105.0) fl MCH (25.0-35.0) pg MCHC (31.0-37.0) g/dl RDW (11.5-14.5) % Plt Count (120.0-450.0) 10^3/uL MPV (7.0-11.0) fl Gran % (50.0-68.0) % Lymph % (Auto) (22.0-35.0) % [place] % (Auto) (1.0-6.0) % Eos % (Auto) (1.5-5.0) % Baso % (Auto) (0.0-3.0) % Gran # (1.4-6.5) Lymph # (Auto) (1.2-3.4) [place] # (Auto) (0.1-0.6) Eos # (Auto) (0.0-0.7) Baso # (Auto) (0.0-2.0) K/mm3 Neutrophils % (Manual) (50.0-70.0) % Band Neutrophils % (0-2) % Lymphocytes % (Manual) (22.0-35.0) % Monocytes % (Manual) (1.0-6.0) % Metamyelocytes % % Platelet Evaluation (NORMAL) Anisocytosis (manual) pCO2 (35-45) mm/Hg pO2 (80-100) mm/Hg HCO3 (21-28) mmol/L ABG pH (7.35-7.45) ABG Total CO2 (22-28) mmol.L ABG O2 Saturation (95-98) % ABG O2 Content (15-23) ML/dl ABG Base Excess (-2.0-3.0) mmol/L ABG Hemoglobin (11.7-17.4) g/dL ABG Carboxyhemoglobin (0.5-1.5) % POC ABG HHb (Measured) (0-5) % ABG Methemoglobin (0.0-3.0) % ABG O2 Capacity (16-24) mL/dl Hgb O2 Saturation (95.0-98.0) % FiO2 % Sodium (132-148) mmol/L Potassium (3.6-5.0) mmol/L Chloride (98-107) mmol/L Carbon Dioxide (21-33) mmol/L Anion Gap (10-20) BUN (7-21) mg/dL Creatinine (0.7-1.2) mg/dl Est GFR ( Amer) Est GFR (Non-Af Amer) POC Glucose (mg/dL) 97 (65-110) mg/dL Random Glucose (70-110) mg/dL Calcium (8.4-10.5) mg/dL Total Bilirubin (0.2-1.3) mg/dL AST (14-36) U/L ALT (7-56) U/L Alkaline Phosphatase (38-126) U/L Total Protein (5.8-8.3) g/dL Albumin (3.0-4.8) g/dL Globulin gm/dL Albumin/Globulin Ratio (1.1-1.8) Blood Type B NEGATIVE Antibody Screen Negative Crossmatch See Detail BBK History Checked Patient has bt Laboratory Results - last 24 hr 06/10/17 06/10/17 06/10/17 08:45 11:07 16:24 WBC RBC Hgb Hct MCV MCH MCHC RDW Plt Count MPV Gran % Lymph % (Auto) [place] % (Auto) Eos % (Auto) Baso % (Auto) Gran # Lymph # (Auto) [place] # (Auto) Eos # (Auto) Baso # (Auto) Neutrophils % (Manual) Band Neutrophils % Lymphocytes % (Manual) Monocytes % (Manual) Metamyelocytes % Platelet Evaluation Anisocytosis (manual) pCO2 pO2 HCO3 ABG pH ABG Total CO2 ABG O2 Saturation ABG O2 Content ABG Base Excess ABG Hemoglobin ABG Carboxyhemoglobin POC ABG HHb (Measured) ABG Methemoglobin ABG O2 Capacity Hgb O2 Saturation FiO2 Sodium Potassium Chloride Carbon Dioxide Anion Gap BUN Creatinine Est GFR ( Amer) Est GFR (Non-Af Amer) POC Glucose (mg/dL) 97 70 Random Glucose Calcium Total Bilirubin AST ALT Alkaline Phosphatase Total Protein Albumin Globulin Albumin/Globulin Ratio Blood Type B NEGATIVE Antibody Screen Negative Crossmatch See Detail BBK History Checked Patient has bt 06/10/17 06/10/17 06/10/17 18:47 21:15 21:25 WBC 4.8 D RBC 3.26 L Hgb 10.3 L Hct 31.9 L MCV 97.9 MCH 31.6 MCHC 32.3 RDW 19.1 H Plt Count 157 MPV 9.1 Gran % Lymph % (Auto) [place] % (Auto) Eos % (Auto) Baso % (Auto) Gran # Lymph # (Auto) [place] # (Auto) Eos # (Auto) Baso # (Auto) Neutrophils % (Manual) Band Neutrophils % Lymphocytes % (Manual) Monocytes % (Manual) Metamyelocytes % Platelet Evaluation Anisocytosis (manual) pCO2 57 H 48 H pO2 58.0 L 303.0 H HCO3 21.8 20.6 L ABG pH 7.19 L* 7.24 L ABG Total CO2 23.5 22.1 ABG O2 Saturation 92.4 L 99.5 H ABG O2 Content 13.2 L 13.8 L ABG Base Excess -6.6 L -6.6 L ABG Hemoglobin 10.4 L 9.5 L ABG Carboxyhemoglobin 2.2 H 1.2 POC ABG HHb (Measured) 7.4 H 0.5 ABG Methemoglobin 0.6 1.1 ABG O2 Capacity 14.3 L 13.9 L Hgb O2 Saturation 89.8 L 97.2 FiO2 80.0 100.0 Sodium Potassium Chloride Carbon Dioxide Anion Gap BUN Creatinine Est GFR ( Amer) Est GFR (Non-Af Amer) POC Glucose (mg/dL) Random Glucose Calcium Total Bilirubin AST ALT Alkaline Phosphatase Total Protein Albumin Globulin Albumin/Globulin Ratio Blood Type Antibody Screen Crossmatch BBK History Checked 06/10/17 06/11/17 06/11/17 23:30 05:00 05:40 WBC 8.1 D RBC 3.60 Hgb 11.2 L Hct 35.1 L MCV 97.5 MCH 31.1 MCHC 31.9 RDW 19.6 H Plt Count 157 MPV 9.9 Gran % 89.2 H Lymph % (Auto) 2.7 L [place] % (Auto) 8.1 H Eos % (Auto) 0.0 L Baso % (Auto) 0.0 Gran # 7.26 H Lymph # (Auto) 0.2 L [place] # (Auto) 0.7 H Eos # (Auto) 0.0 Baso # (Auto) 0.00 Neutrophils % (Manual) 75 H Band Neutrophils % 4 H Lymphocytes % (Manual) 11 L Monocytes % (Manual) 2 Metamyelocytes % 8 Platelet Evaluation Normal Anisocytosis (manual) 1+ pCO2 46 H pO2 155.0 H HCO3 21.1 ABG pH 7.27 L ABG Total CO2 22.5 ABG O2 Saturation 99.5 H ABG O2 Content 13.9 L ABG Base Excess -5.6 L ABG Hemoglobin 10.0 L ABG Carboxyhemoglobin 1.4 POC ABG HHb (Measured) 0.5 ABG Methemoglobin 1.4 ABG O2 Capacity 14.0 L Hgb O2 Saturation 96.7 FiO2 60.0 Sodium Potassium Chloride Carbon Dioxide Anion Gap BUN Creatinine Est GFR ( Amer) Est GFR (Non-Af Amer) POC Glucose (mg/dL) 91 Random Glucose Calcium Total Bilirubin AST ALT Alkaline Phosphatase Total Protein Albumin Globulin Albumin/Globulin Ratio Blood Type Antibody Screen Crossmatch BBK History Checked 06/11/17 06/11/17 05:40 06:33 WBC RBC Hgb Hct MCV MCH MCHC RDW Plt Count MPV Gran % Lymph % (Auto) [place] % (Auto) Eos % (Auto) Baso % (Auto) Gran # Lymph # (Auto) [place] # (Auto) Eos # (Auto) Baso # (Auto) Neutrophils % (Manual) Band Neutrophils % Lymphocytes % (Manual) Monocytes % (Manual) Metamyelocytes % Platelet Evaluation Anisocytosis (manual) pCO2 pO2 HCO3 ABG pH ABG Total CO2 ABG O2 Saturation ABG O2 Content ABG Base Excess ABG Hemoglobin ABG Carboxyhemoglobin POC ABG HHb (Measured) ABG Methemoglobin ABG O2 Capacity Hgb O2 Saturation FiO2 Sodium 146 Potassium 3.7 Chloride 115 H Carbon Dioxide 18 L Anion Gap 16 BUN 16 Creatinine 0.7 Est GFR ( Amer) > 60 Est GFR (Non-Af Amer) > 60 POC Glucose (mg/dL) 115 H Random Glucose 115 H Calcium 8.4 Total Bilirubin 0.3 AST 25 ALT 18 Alkaline Phosphatase 95 Total Protein 5.3 L Albumin 2.6 L Globulin 2.7 Albumin/Globulin Ratio 1.0 L Blood Type Antibody Screen Crossmatch BBK History Checked Fingerstick Blood Sugar Results: 115 Review of Systems - Review of Systems Systems not reviewed;Unavailable: Intubated Critical Care Progress Note - Ventilator Checklist Head of Bed 30 Degrees: Yes Daily Sedation Vacation: Yes Daily Assessment of Readiness to Wean: Yes Daily Spontaneous Breathing Trial: Yes PUD Prophalyxis: Yes DVT Prophylaxis: Yes Oral Care with Chlorhexidine Gluconate {CHG}: Yes Assessment/Plan - Assessment and Plan (Free Text) Assessment: 66 year old female with PMH COPD, CHF with EF 15%, cardiomyopathy, alcohol abuse , DM, Hodgkin's lymphoma, ITP, depression, admitted to ICU for hypercapenic, hypoxic respiratory acidosis 2/2 opiate overdose, COPD exacerbation: Neuro: - intubated, sedated on propofol, switched off this morning. - Monitor Pulm: - maintain SPO2 >90-94 - Duonebs - ABG this AM shows resolved hypoxia, improved hypercapnea. - pulmicort, solumedrol 40 q 12 - rocephin, azithromycin - undergoing weaning - CXR in the AM CV: - low BP, started on Dobutamine drip, currently at 2 mcg/kg/min. - Maintaince fluid with D51/2NS @ 75 - BNP 8950 - maintain MAP > 65 - Cont to monitor GI: - ppx with protonix IV - Consider starting feeds Renal: - Stable BUn/Cr - replete electrolytes as needed ID: - febrile overnight, bandemia 4 today. - f/u procal - On Rocephin and Azithromycin Heme: - s/p 1 unit prbcs yesterday - Stable - Monitor H/H GI/ DVT ppx - Protonix and Heparin SQ Case and plan was reviewed and discussed in detail with Dr Pierson. - Date & Time Date: 06/11/17 Time: 11:30 <Ash Pierson - Last Filed: 06/11/17 14:58> CCU Objective - Vital Signs / Intake & Output Vital Signs (Last 4 hours): Vital Signs Pulse 06/11/17 13:43 108 H 06/11/17 11:45 120 H Intake and Output (Last 8hrs): Intake & Output 06/10/17 06/11/17 06/11/17 22:59 06:59 14:59 Intake Total 2640 100 929 Output Total 700 500 Balance 1940 100 429 Intake: IV 2100 100 929 Left upper chest 2000 900 Oral 0 Blood Product 540 Apheresis Rbc Cp2d As3 Lr 270 2nd Unit [id number] Output: Urine 700 500 Urethral (Cota) 700 500 Other: # Bowel Movements 1 - Medications Active Medications: Active Medications Generic Name Dose Route Start Last Admin Trade Name Freq PRN Reason Stop Dose Admin Acetaminophen 650 mg 06/10/17 17:04 06/10/17 17:18 Tylenol 650 Mg Supp RC 650 mg Q6H PRN Administration Fever >100.4 F Albuterol/Ipratropium 3 ml 06/10/17 20:00 06/11/17 13:41 Duoneb 3 Mg/0.5 Mg (3 Ml) Ud IH 3 ml [id number] EBLEM Administration Budesonide 0.5 mg 06/10/17 20:00 06/11/17 07:40 Pulmicort Respules IH 0.5 mg [id number] BELEM Administration Heparin Sodium (Porcine) 5,000 units 06/10/17 22:00 06/11/17 10:04 Heparin SC 5,000 units Q12 BELEM Administration Protocol Ceftriaxone Sodium 1 gm in 100 mls @ 100 mls/hr 06/11/17 10:00 06/11/17 10:02 Rocephin 1 Gram Ivpb IVPB 06/15/17 10:59 100 mls/hr DAILY BELEM Administration Protocol Dextrose/Sodium Chloride 1,000 mls @ 75 mls/hr 06/10/17 17:15 06/11/17 06:23 Dextrose 5%/0.45% Ns 1000 Ml IV 75 mls/hr .[id number] BELEM Administration Propofol 1,000 mg in 100 mls @ 1.296 mls/hr 06/10/17 20:40 06/11/17 07:04 Diprivan IV 19.28 mcg/kg/min .Q24H PRN 5 mls/hr TITRATE PER MD ORDER Titration Protocol 5 MCG/KG/MIN Azithromycin 500 mg in 250 mls @ 250 mls/hr 06/11/17 07:15 06/11/17 08:07 Zithromax 500mg In Ns IVPB 250 mls/hr Q24H BELEM Administration Protocol Dobutamine HCl/Dextrose 500 mg in 250 mls @ 2.592 mls/hr 06/11/17 07:25 06/11 09:00 Dobutamine/Dextrose 5% 500mg/250ml IV 2 mcg/kg/min .Q24H PRN 2.592 mls/hr TITRATE PER PROTOCOL Administration Protocol 2 MCG/KG/MIN Methylprednisolone 40 mg 06/10/17 22:00 06/11/17 10:03 Solu-Medrol IVP 40 mg Q12 BELEM Administration Pantoprazole Sodium 40 mg 06/11/17 10:00 06/11/17 10:03 Protonix Inj IVP 40 mg DAILY BELEM Administration - Patient Studies Lab Studies: Lab Studies 06/11/17 06/11/17 06/11/17 Range/Units 11:10 06:33 05:40 WBC (4.5-11.0) 10^3/ul RBC (3.5-6.1) 10^6/uL Hgb (12.0-16.0) g/dL Hct (36.0-48.0) % MCV (80.0-105.0) fl MCH (25.0-35.0) pg MCHC (31.0-37.0) g/dl RDW (11.5-14.5) % Plt Count (120.0-450.0) 10^3/uL MPV (7.0-11.0) fl Gran % (50.0-68.0) % Lymph % (Auto) (22.0-35.0) % [place] % (Auto) (1.0-6.0) % Eos % (Auto) (1.5-5.0) % Baso % (Auto) (0.0-3.0) % Gran # (1.4-6.5) Lymph # (Auto) (1.2-3.4) [place] # (Auto) (0.1-0.6) Eos # (Auto) (0.0-0.7) Baso # (Auto) (0.0-2.0) K/mm3 Neutrophils % (Manual) (50.0-70.0) % Band Neutrophils % (0-2) % Lymphocytes % (Manual) (22.0-35.0) % Monocytes % (Manual) (1.0-6.0) % Metamyelocytes % % Platelet Evaluation (NORMAL) Anisocytosis (manual) pCO2 38 (35-45) mm/Hg pO2 126.0 H (80-100) mm/Hg HCO3 20.5 L (21-28) mmol/L ABG pH 7.34 L (7.35-7.45) ABG Total CO2 21.7 L (22-28) mmol.L ABG O2 Saturation 99.7 H (95-98) % ABG O2 Content 13.5 L (15-23) ML/dl ABG Base Excess -4.8 L (-2.0-3.0) mmol/L ABG Hemoglobin 9.7 L (11.7-17.4) g/dL ABG Carboxyhemoglobin 1.5 (0.5-1.5) % POC ABG HHb (Measured) 0.3 (0-5) % ABG Methemoglobin 1.1 (0.0-3.0) % ABG O2 Capacity 13.5 L (16-24) mL/dl Hgb O2 Saturation 97.1 (95.0-98.0) % FiO2 50.0 % Sodium 146 (132-148) mmol/L Potassium 3.7 (3.6-5.0) mmol/L Chloride 115 H (98-107) mmol/L Carbon Dioxide 18 L (21-33) mmol/L Anion Gap 16 (10-20) BUN 16 (7-21) mg/dL Creatinine 0.7 (0.7-1.2) mg/dl Est GFR ( Amer) > 60 Est GFR (Non-Af Amer) > 60 POC Glucose (mg/dL) 115 H (65-110) mg/dL Random Glucose 115 H (70-110) mg/dL Calcium 8.4 (8.4-10.5) mg/dL Total Bilirubin 0.3 (0.2-1.3) mg/dL AST 25 (14-36) U/L ALT 18 (7-56) U/L Alkaline Phosphatase 95 (38-126) U/L Total Protein 5.3 L (5.8-8.3) g/dL Albumin 2.6 L (3.0-4.8) g/dL Globulin 2.7 gm/dL Albumin/Globulin Ratio 1.0 L (1.1-1.8) Crossmatch 06/11/17 06/11/17 06/10/17 Range/Units 05:40 05:00 23:30 WBC 8.1 D (4.5-11.0) 10^3/ul RBC 3.60 (3.5-6.1) 10^6/uL Hgb 11.2 L (12.0-16.0) g/dL Hct 35.1 L (36.0-48.0) % MCV 97.5 (80.0-105.0) fl MCH 31.1 (25.0-35.0) pg MCHC 31.9 (31.0-37.0) g/dl RDW 19.6 H (11.5-14.5) % Plt Count 157 (120.0-450.0) 10^3/uL MPV 9.9 (7.0-11.0) fl Gran % 89.2 H (50.0-68.0) % Lymph % (Auto) 2.7 L (22.0-35.0) % [place] % (Auto) 8.1 H (1.0-6.0) % Eos % (Auto) 0.0 L (1.5-5.0) % Baso % (Auto) 0.0 (0.0-3.0) % Gran # 7.26 H (1.4-6.5) Lymph # (Auto) 0.2 L (1.2-3.4) [place] # (Auto) 0.7 H (0.1-0.6) Eos # (Auto) 0.0 (0.0-0.7) Baso # (Auto) 0.00 (0.0-2.0) K/mm3 Neutrophils % (Manual) 75 H (50.0-70.0) % Band Neutrophils % 4 H (0-2) % Lymphocytes % (Manual) 11 L (22.0-35.0) % Monocytes % (Manual) 2 (1.0-6.0) % Metamyelocytes % 8 % Platelet Evaluation Normal (NORMAL) Anisocytosis (manual) 1+ pCO2 46 H (35-45) mm/Hg pO2 155.0 H (80-100) mm/Hg HCO3 21.1 (21-28) mmol/L ABG pH 7.27 L (7.35-7.45) ABG Total CO2 22.5 (22-28) mmol.L ABG O2 Saturation 99.5 H (95-98) % ABG O2 Content 13.9 L (15-23) ML/dl ABG Base Excess -5.6 L (-2.0-3.0) mmol/L ABG Hemoglobin 10.0 L (11.7-17.4) g/dL ABG Carboxyhemoglobin 1.4 (0.5-1.5) % POC ABG HHb (Measured) 0.5 (0-5) % ABG Methemoglobin 1.4 (0.0-3.0) % ABG O2 Capacity 14.0 L (16-24) mL/dl Hgb O2 Saturation 96.7 (95.0-98.0) % FiO2 60.0 % Sodium (132-148) mmol/L Potassium (3.6-5.0) mmol/L Chloride (98-107) mmol/L Carbon Dioxide (21-33) mmol/L Anion Gap (10-20) BUN (7-21) mg/dL Creatinine (0.7-1.2) mg/dl Est GFR ( Amer) Est GFR (Non-Af Amer) POC Glucose (mg/dL) 91 (65-110) mg/dL Random Glucose (70-110) mg/dL Calcium (8.4-10.5) mg/dL Total Bilirubin (0.2-1.3) mg/dL AST (14-36) U/L ALT (7-56) U/L Alkaline Phosphatase (38-126) U/L Total Protein (5.8-8.3) g/dL Albumin (3.0-4.8) g/dL Globulin gm/dL Albumin/Globulin Ratio (1.1-1.8) Crossmatch 06/10/17 06/10/17 06/10/17 Range/Units 21:25 21:15 18:47 WBC 4.8 D (4.5-11.0) 10^3/ul RBC 3.26 L (3.5-6.1) 10^6/uL Hgb 10.3 L (12.0-16.0) g/dL Hct 31.9 L (36.0-48.0) % MCV 97.9 (80.0-105.0) fl MCH 31.6 (25.0-35.0) pg MCHC 32.3 (31.0-37.0) g/dl RDW 19.1 H (11.5-14.5) % Plt Count 157 (120.0-450.0) 10^3/uL MPV 9.1 (7.0-11.0) fl Gran % (50.0-68.0) % Lymph % (Auto) (22.0-35.0) % [place] % (Auto) (1.0-6.0) % Eos % (Auto) (1.5-5.0) % Baso % (Auto) (0.0-3.0) % Gran # (1.4-6.5) Lymph # (Auto) (1.2-3.4) [place] # (Auto) (0.1-0.6) Eos # (Auto) (0.0-0.7) Baso # (Auto) (0.0-2.0) K/mm3 Neutrophils % (Manual) (50.0-70.0) % Band Neutrophils % (0-2) % Lymphocytes % (Manual) (22.0-35.0) % Monocytes % (Manual) (1.0-6.0) % Metamyelocytes % % Platelet Evaluation (NORMAL) Anisocytosis (manual) pCO2 48 H 57 H (35-45) mm/Hg pO2 303.0 H 58.0 L (80-100) mm/Hg HCO3 20.6 L 21.8 (21-28) mmol/L ABG pH 7.24 L 7.19 L* (7.35-7.45) ABG Total CO2 22.1 23.5 (22-28) mmol.L ABG O2 Saturation 99.5 H 92.4 L (95-98) % ABG O2 Content 13.8 L 13.2 L (15-23) ML/dl ABG Base Excess -6.6 L -6.6 L (-2.0-3.0) mmol/L ABG Hemoglobin 9.5 L 10.4 L (11.7-17.4) g/dL ABG Carboxyhemoglobin 1.2 2.2 H (0.5-1.5) % POC ABG HHb (Measured) 0.5 7.4 H (0-5) % ABG Methemoglobin 1.1 0.6 (0.0-3.0) % ABG O2 Capacity 13.9 L 14.3 L (16-24) mL/dl Hgb O2 Saturation 97.2 89.8 L (95.0-98.0) % FiO2 100.0 80.0 % Sodium (132-148) mmol/L Potassium (3.6-5.0) mmol/L Chloride (98-107) mmol/L Carbon Dioxide (21-33) mmol/L Anion Gap (10-20) BUN (7-21) mg/dL Creatinine (0.7-1.2) mg/dl Est GFR ( Amer) Est GFR (Non-Af Amer) POC Glucose (mg/dL) (65-110) mg/dL Random Glucose (70-110) mg/dL Calcium (8.4-10.5) mg/dL Total Bilirubin (0.2-1.3) mg/dL AST (14-36) U/L ALT (7-56) U/L Alkaline Phosphatase (38-126) U/L Total Protein (5.8-8.3) g/dL Albumin (3.0-4.8) g/dL Globulin gm/dL Albumin/Globulin Ratio (1.1-1.8) Crossmatch 06/10/17 06/10/17 06/10/17 Range/Units 16:24 11:07 08:45 WBC (4.5-11.0) 10^3/ul RBC (3.5-6.1) 10^6/uL Hgb (12.0-16.0) g/dL Hct (36.0-48.0) % MCV (80.0-105.0) fl MCH (25.0-35.0) pg MCHC (31.0-37.0) g/dl RDW (11.5-14.5) % Plt Count (120.0-450.0) 10^3/uL MPV (7.0-11.0) fl Gran % (50.0-68.0) % Lymph % (Auto) (22.0-35.0) % [place] % (Auto) (1.0-6.0) % Eos % (Auto) (1.5-5.0) % Baso % (Auto) (0.0-3.0) % Gran # (1.4-6.5) Lymph # (Auto) (1.2-3.4) [place] # (Auto) (0.1-0.6) Eos # (Auto) (0.0-0.7) Baso # (Auto) (0.0-2.0) K/mm3 Neutrophils % (Manual) (50.0-70.0) % Band Neutrophils % (0-2) % Lymphocytes % (Manual) (22.0-35.0) % Monocytes % (Manual) (1.0-6.0) % Metamyelocytes % % Platelet Evaluation (NORMAL) Anisocytosis (manual) pCO2 (35-45) mm/Hg pO2 (80-100) mm/Hg HCO3 (21-28) mmol/L ABG pH (7.35-7.45) ABG Total CO2 (22-28) mmol.L ABG O2 Saturation (95-98) % ABG O2 Content (15-23) ML/dl ABG Base Excess (-2.0-3.0) mmol/L ABG Hemoglobin (11.7-17.4) g/dL ABG Carboxyhemoglobin (0.5-1.5) % POC ABG HHb (Measured) (0-5) % ABG Methemoglobin (0.0-3.0) % ABG O2 Capacity (16-24) mL/dl Hgb O2 Saturation (95.0-98.0) % FiO2 % Sodium (132-148) mmol/L Potassium (3.6-5.0) mmol/L Chloride (98-107) mmol/L Carbon Dioxide (21-33) mmol/L Anion Gap (10-20) BUN (7-21) mg/dL Creatinine (0.7-1.2) mg/dl Est GFR ( Amer) Est GFR (Non-Af Amer) POC Glucose (mg/dL) 70 97 (65-110) mg/dL Random Glucose (70-110) mg/dL Calcium (8.4-10.5) mg/dL Total Bilirubin (0.2-1.3) mg/dL AST (14-36) U/L ALT (7-56) U/L Alkaline Phosphatase (38-126) U/L Total Protein (5.8-8.3) g/dL Albumin (3.0-4.8) g/dL Globulin gm/dL Albumin/Globulin Ratio (1.1-1.8) Crossmatch See Detail Laboratory Results - last 24 hr 06/10/17 06/10/17 06/10/17 08:45 11:07 16:24 WBC RBC Hgb Hct MCV MCH MCHC RDW Plt Count MPV Gran % Lymph % (Auto) [place] % (Auto) Eos % (Auto) Baso % (Auto) Gran # Lymph # (Auto) [place] # (Auto) Eos # (Auto) Baso # (Auto) Neutrophils % (Manual) Band Neutrophils % Lymphocytes % (Manual) Monocytes % (Manual) Metamyelocytes % Platelet Evaluation Anisocytosis (manual) pCO2 pO2 HCO3 ABG pH ABG Total CO2 ABG O2 Saturation ABG O2 Content ABG Base Excess ABG Hemoglobin ABG Carboxyhemoglobin POC ABG HHb (Measured) ABG Methemoglobin ABG O2 Capacity Hgb O2 Saturation FiO2 Sodium Potassium Chloride Carbon Dioxide Anion Gap BUN Creatinine Est GFR ( Amer) Est GFR (Non-Af Amer) POC Glucose (mg/dL) 97 70 Random Glucose Calcium Total Bilirubin AST ALT Alkaline Phosphatase Total Protein Albumin Globulin Albumin/Globulin Ratio Crossmatch See Detail 06/10/17 06/10/17 06/10/17 18:47 21:15 21:25 WBC 4.8 D RBC 3.26 L Hgb 10.3 L Hct 31.9 L MCV 97.9 MCH 31.6 MCHC 32.3 RDW 19.1 H Plt Count 157 MPV 9.1 Gran % Lymph % (Auto) [place] % (Auto) Eos % (Auto) Baso % (Auto) Gran # Lymph # (Auto) [place] # (Auto) Eos # (Auto) Baso # (Auto) Neutrophils % (Manual) Band Neutrophils % Lymphocytes % (Manual) Monocytes % (Manual) Metamyelocytes % Platelet Evaluation Anisocytosis (manual) pCO2 57 H 48 H pO2 58.0 L 303.0 H HCO3 21.8 20.6 L ABG pH 7.19 L* 7.24 L ABG Total CO2 23.5 22.1 ABG O2 Saturation 92.4 L 99.5 H ABG O2 Content 13.2 L 13.8 L ABG Base Excess -6.6 L -6.6 L ABG Hemoglobin 10.4 L 9.5 L ABG Carboxyhemoglobin 2.2 H 1.2 POC ABG HHb (Measured) 7.4 H 0.5 ABG Methemoglobin 0.6 1.1 ABG O2 Capacity 14.3 L 13.9 L Hgb O2 Saturation 89.8 L 97.2 FiO2 80.0 100.0 Sodium Potassium Chloride Carbon Dioxide Anion Gap BUN Creatinine Est GFR ( Amer) Est GFR (Non-Af Amer) POC Glucose (mg/dL) Random Glucose Calcium Total Bilirubin AST ALT Alkaline Phosphatase Total Protein Albumin Globulin Albumin/Globulin Ratio Crossmatch 06/10/17 06/11/17 06/11/17 23:30 05:00 05:40 WBC 8.1 D RBC 3.60 Hgb 11.2 L Hct 35.1 L MCV 97.5 MCH 31.1 MCHC 31.9 RDW 19.6 H Plt Count 157 MPV 9.9 Gran % 89.2 H Lymph % (Auto) 2.7 L [place] % (Auto) 8.1 H Eos % (Auto) 0.0 L Baso % (Auto) 0.0 Gran # 7.26 H Lymph # (Auto) 0.2 L [place] # (Auto) 0.7 H Eos # (Auto) 0.0 Baso # (Auto) 0.00 Neutrophils % (Manual) 75 H Band Neutrophils % 4 H Lymphocytes % (Manual) 11 L Monocytes % (Manual) 2 Metamyelocytes % 8 Platelet Evaluation Normal Anisocytosis (manual) 1+ pCO2 46 H pO2 155.0 H HCO3 21.1 ABG pH 7.27 L ABG Total CO2 22.5 ABG O2 Saturation 99.5 H ABG O2 Content 13.9 L ABG Base Excess -5.6 L ABG Hemoglobin 10.0 L ABG Carboxyhemoglobin 1.4 POC ABG HHb (Measured) 0.5 ABG Methemoglobin 1.4 ABG O2 Capacity 14.0 L Hgb O2 Saturation 96.7 FiO2 60.0 Sodium Potassium Chloride Carbon Dioxide Anion Gap BUN Creatinine Est GFR ( Amer) Est GFR (Non-Af Amer) POC Glucose (mg/dL) 91 Random Glucose Calcium Total Bilirubin AST ALT Alkaline Phosphatase Total Protein Albumin Globulin Albumin/Globulin Ratio Crossmatch 06/11/17 06/11/17 06/11/17 05:40 06:33 11:10 WBC RBC Hgb Hct MCV MCH MCHC RDW Plt Count MPV Gran % Lymph % (Auto) [place] % (Auto) Eos % (Auto) Baso % (Auto) Gran # Lymph # (Auto) [place] # (Auto) Eos # (Auto) Baso # (Auto) Neutrophils % (Manual) Band Neutrophils % Lymphocytes % (Manual) Monocytes % (Manual) Metamyelocytes % Platelet Evaluation Anisocytosis (manual) pCO2 38 pO2 126.0 H HCO3 20.5 L ABG pH 7.34 L ABG Total CO2 21.7 L ABG O2 Saturation 99.7 H ABG O2 Content 13.5 L ABG Base Excess -4.8 L ABG Hemoglobin 9.7 L ABG Carboxyhemoglobin 1.5 POC ABG HHb (Measured) 0.3 ABG Methemoglobin 1.1 ABG O2 Capacity 13.5 L Hgb O2 Saturation 97.1 FiO2 50.0 Sodium 146 Potassium 3.7 Chloride 115 H Carbon Dioxide 18 L Anion Gap 16 BUN 16 Creatinine 0.7 Est GFR ( Amer) > 60 Est GFR (Non-Af Amer) > 60 POC Glucose (mg/dL) 115 H Random Glucose 115 H Calcium 8.4 Total Bilirubin 0.3 AST 25 ALT 18 Alkaline Phosphatase 95 Total Protein 5.3 L Albumin 2.6 L Globulin 2.7 Albumin/Globulin Ratio 1.0 L Crossmatch Attending/Attestation - Attestation I have personally seen and examined this patient.: Yes I have fully participated in the care of the patient.: Yes I have reviewed all pertinent clinical information: Yes Notes (Text): 06/11/17 14:52 66 yo female with end stage lung disease and severe LV systolic CHF, who presented with hypercapnic/hypoxemic RF, requiring intubation. Patient passed PST today, off of sedation. Was successfully extubated to BPAP. Dobutamine started with improved hemodyanmics. Will continue with DVT/GI prophylaxis, abx, steroids taper, bronchodilators, OOB to chair. Patient continues to smoke despite counseling on contrary multiple times, as per at bedside she is fully aware of potential consequences of that. Would recommend palliative care consult and discussion of advanced directives and end-of-life care. ccm time 40 min
[2017-06-11 11:18] LABS: ARTERIAL BLOOD GAS HCO3 20.5 mmol/L (21-28); ARTERIAL BLOOD GAS HEMOGLOBIN 9.7 g/dL (11.7-17.4); ARTERIAL BLOOD GAS O2 CAPACITY 13.5 mL/dl (16-24); ARTERIAL BLOOD GAS O2 CONTENT 13.5 ML/dl (15-23); ARTERIAL BLOOD GAS O2 SAT 99.7 % (95-98); ARTERIAL BLOOD GAS PCO2 38 mm/Hg (35-45); ARTERIAL BLOOD GAS PH 7.34 (7.35-7.45); ARTERIAL BLOOD GAS TCO2 21.7 mmol.L (22-28)
--- NOTE | 2017-06-11 17:30 | RAD ---
HISTORY: line placement COMPARISON: June 11, 2017. Time of the most recent examination: 04:59 FINDINGS: LUNGS: Patchy multifocal infiltrates unchanged PLEURA: No significant pleural effusion identified, no pneumothorax apparent. CARDIOVASCULAR: No significant interval change compared to the prior examination(s). Venous access catheter in satisfactory position. OSSEOUS STRUCTURES: No significant abnormalities. VISUALIZED UPPER ABDOMEN: Normal. OTHER FINDINGS: None. IMPRESSION: No adverse findings following right IJ catheter insertion. No pneumothorax. Otherwise no interval unchanged other than removal of support apparatus including endotracheal tube and nasogastric tube
[2017-06-11] MEDS: Milrinone 20mg/100ml D5W 100 ML IV PRN (17:46)
--- NOTE | 2017-06-11 17:55 | CON ---
DATE: 06/11/2017 PULMONARY CONSULTATION REFERRING PHYSICIAN: Tripp King MD REASON FOR CONSULTATION: Respiratory failure. History is obtained via extensive discussion with the ICU nurse. The patient is currently intubated and sedated. HISTORY OF PRESENT ILLNESS: The patient is a chronically ill 66-year-old female, with past medical history significant for advanced chronic obstructive pulmonary disease, advanced coronary artery disease, status post multiple myocardial infarctions, cardiac arrhythmias, congestive heart failure, advanced alcoholic cardiomyopathy, who presented to [facility] yesterday - after the had found her very sleepy and lethargic. When the patient's found her, he also reported that she had taken too many pain medicines. He thus had her transferred to [facility] for additional evaluation and treatment. Again, I did discuss the case with the night nurse at length. I have also reviewed the chart at length. In addition to the above, the patient also presented with some mild shortness of breath. She does have chronic dyspnea on exertion. She also has a chronic occasional cough with occasional sputum production - unchanged. There is no history of chest pain, coughing up of blood, or chest pain - made worse with deep respirations. The patient did have fevers yesterday afternoon. No history of chills or infectious exposure. No history of night sweats, weight loss, or appetite change prior to the above events. No history of leg or calf pains. No history of syncope or diaphoresis. No history of recent travel or trauma. REVIEW OF SYSTEMS: No history of nausea, vomiting, or diarrhea. No acute urinary symptoms. Rest of the review of systems negative. ALLERGIES: BENADRYL, ASPIRIN, AND CERTAIN ANESTHETIC AGENTS. SOCIAL HISTORY: Positive for extensive tobacco usage, extensive alcohol abuse. Extensive narcotic abuse. FAMILY HISTORY: No inheritable diseases. HOME MEDICATIONS: Not listed in the computer at the present time. PHYSICAL EXAMINATION: GENERAL: The patient is currently on the ventilator and sedated. VITAL SIGNS: Temperature is 97.7, pulse on the monitor is 91, respiratory rate 16/14, blood pressure 94/51. HEENT: Normocephalic, atraumatic. No JVD. CARDIOVASCULAR: Positive S1, S2. Positive S3 gallop. LUNGS: Crackles at both bases. Minimal bilateral rhonchi. No wheezing. EXTREMITIES: There is mild edema in her legs. No cyanosis or clubbing. GI: Abdomen is soft, nondistended. Bowel sounds are positive. SKIN: No acute rash. NEUROLOGIC: Limited at the present time. PERTINENT LABORATORY DATA: Multiple chest x-rays have been done since her admission. There is a definite mild increase in pulmonary vascular congestion on today's film. There is also a questionable patchy infiltrate noted at the right lower lobe. Arterial blood gas was done on PRVC 14, tidal volume 350, FiO2 of 60%. Results are pH of 7.27, pCO2 of 46, pO2 of 155. CBC: White count 4.8, hemoglobin 10.3, hematocrit 31.9, and platelets of 157,000. Complete metabolic profile: Potassium 5.4, chloride 111. BUN 27. Calcium 8.3. AST 46. LDH 1018. Albumin 2.9. Rest of the metabolic profiles within normal limits. B-type natriuretic peptide is significantly elevated - 8950. IMPRESSION: 1. Recurrent respiratory failure. 2. Recurrent congestive heart failure. 3. Advanced alcoholic cardiomyopathy. 4. Advanced chronic obstructive pulmonary disease. 5. Rule out pneumonia, right lower lobe. 6. Coronary artery disease. 7. Anemia. PLAN: Again, I did discuss the case with the night nurse at length. I have also reviewed the chart at length. The patient presented to [facility] primarily because the found her to be overly sleepy and lethargic. As above, the patient's thought that she had taken too many of her pain medications. In the emergency room, the patient did respond to Narcan and woke up a little bit. However, her respiratory status continued to decline, and she was intubated for airway protection and ventilation. I did review the chest x-ray as above. There is a definite increase in pulmonary vascular congestion. There is also a questionable right lower lobe infiltrate. I will order a stat procalcitonin level - to help us distinguish whether we are dealing with an acute pneumonia or not. Khan cultures have been ordered and will be analyzed when feasible. The patient is on intravenous antibiotic therapy. I have also reviewed the arterial blood gas. The arterial blood gas reveals a mixed metabolic and respiratory acidosis, with a mild alveolar-arterial gradient. I will discuss the ventilator settings with the ICU team in the next few moments. Lastly, I have also reviewed the laboratory data. A significant rise in the B-type natriuretic peptide is noted. The patient was given Lasix yesterday. The patient does appear somewhat improved - compared to yesterday. However, again, her future status/prognosis remains very poor. All are aware. I will discuss the above with the entire ICU team in the next few moments. I will also discuss the above with the attending physician later this morning. Thank you very much for this pulmonary consultation. Adam Parker MD MTDJhonny
[2017-06-11] MEDS ORDERED: NOREPINEPHRINE BIT/0.9 % NACL 4 MG/250 ML BAG IV PRN (18:11)
[2017-06-12] MEDS: Albuterol-Ipratrop 3 mg / 0.5 (3 ml) UD IH SCH ×4 (02:24→20:15)
[2017-06-12 05:19] LABS: ARTERIAL BLOOD GAS HCO3 21.7 mmol/L (21-28); ARTERIAL BLOOD GAS O2 CAPACITY 12.5 mL/dl (16-24); ARTERIAL BLOOD GAS O2 CONTENT 12.4 ML/dl (15-23); ARTERIAL BLOOD GAS O2 SAT 99.3 % (95-98); ARTERIAL BLOOD GAS PCO2 35 mm/Hg (35-45); ARTERIAL BLOOD GAS TCO2 22.8 mmol.L (22-28)
[2017-06-12 06:21] LABS: MEAN CELL VOLUME 95.5 fl (80.0-105.0); MEAN CORPUSCULAR HEMOGLOBIN 31.5 pg (25.0-35.0); RBC 2.89 10^6/uL (3.5-6.1); RED CELL DISTRIBUTION WIDTH 19.5 % (11.5-14.5); WHITE BLOOD COUNT 15.1 10^3/ul (4.5-11.0)
[2017-06-12 06:34] LABS: HEMOGLOBIN 9.1 g/dL (12.0-16.0)
[2017-06-12] MEDS: Budesonide 0.5 mg/2 ml Inhal Susp UD IH SCH ×2 (07:30→20:15)
[2017-06-12 07:31] LABS: BLOOD UREA NITROGEN 15 mg/dL (7-21); CALCIUM 8.6 mg/dL (8.4-10.5); GFR AFRICAN-AMERICAN > 60; GFR NON-AFRICAN AMERICAN > 60
--- NOTE | 2017-06-12 07:58 | RAD ---
HISTORY: f/u COMPARISON: 06/11/2017 FINDINGS: LUNGS: There is improvement in the degree of vascular congestion. PLEURA: No significant pleural effusion identified, no pneumothorax apparent. CARDIOVASCULAR: Normal. OSSEOUS STRUCTURES: No significant abnormalities. VISUALIZED UPPER ABDOMEN: Normal. OTHER FINDINGS: Central lines unchanged IMPRESSION: Improvement in the degree of vascular congestion
[2017-06-12] MEDS ORDERED: Morphine 4 mg/ml ISec IVP STA (08:34)
[2017-06-12] MEDS ORDERED: Potassium Chloride 40 mEq/30 ml LIQ UD PO ONE (08:39)
--- NOTE | 2017-06-12 08:53 | PN ---
DATE: 06/12/2017([id number]) PULMONARY NOTE SUBJECTIVE: The patient is now extubated in the ICU. She is mildly short of breath, but in no acute distress. PHYSICAL EXAMINATION: VITAL SIGNS: Temperature is 99.5, pulse 107, respirations 20/22, blood pressure 117/52. Oxygen saturation on nasal cannula is 99%. HEENT: Normocephalic, atraumatic. NECK: No JVD. CARDIOVASCULAR: Positive S1, S2. Positive S3 gallop. LUNGS: Crackles at both bases. Mild bilateral rhonchi. No wheezing. EXTREMITIES: Mild edema in her lower extremities. No cyanosis or clubbing. Calves are nontender to palpation. GI: Abdomen is soft, nontender, nondistended. Bowel sounds are positive. SKIN: No acute rash. NEUROLOGIC: Exam limited at the present time. PERTINENT LABORATORY DATA: Chest x-ray was done this morning and reviewed. The chest x-ray has improved with decreased pulmonary vascular congestion. Arterial blood gas was done on 5 liters nasal cannula oxygen. Results are, pH 7.40, pCO2 of 35 and pO2 of 109. IMPRESSION: 1. Recurrent respiratory failure. 2. Recurrent congestive heart failure. 3. Advanced alcoholic cardiomyopathy. 4. Advanced chronic obstructive pulmonary disease. 5. Rule out pneumonia-right lower lobe. 6. Coronary artery disease. 7. Anemia. PLAN: The patient is currently extubated and in the ICU. She is mildly short of breath, but in no acute distress. She is awake and alert. I did discuss the case with the night nurse at length. The night nurse stated that the patient had a good night, but refused her BiPAP. I did review the chest x-ray as above. The chest x-ray appears improved with decreased pulmonary vascular congestion. I have also reviewed the arterial blood gas. The arterial blood gas is also significantly improved-- with normalization of the pH, and a decrease in the alveolar-arterial gradient. I will continue with the current nebulizer treatments and low-dose intravenous steroids for now. I would continue with the treatment for congestive heart failure as per Cardiology. The patient is on a milrinone drip. The patient also remains on antibiotic therapy. There are decreased/low- grade temperatures noted. There is also leukocytosis-which may very well be due to the steroids. The clinical status of the patient is definitely improved-compared to the initial presentation. However, again, the future status/prognosis for this patient remains very poor. All are aware. I will discuss the above with the entire ICU team in the next few moments. I will also discuss the above with Dr. King later this morning. Adam Parker MD [place]
[2017-06-12 09:07] LABS: BLOOD UREA NITROGEN 16 mg/dL (7-21); CALCIUM 8.7 mg/dL (8.4-10.5); GFR AFRICAN-AMERICAN > 60; GFR NON-AFRICAN AMERICAN > 60
[2017-06-12] MEDS: Azithromycin 500MG/NS 250ml 500 MG/250 ML BAG IVPB SCH (09:13)
[2017-06-12] MEDS: Milrinone 20mg/100ml D5W 100 ML IV PRN (09:14)
--- NOTE | 2017-06-12 09:50 | CP.CCUPN ---
<Aileen Bills - Last Filed: 06/12/17 10:10> CCU Subjective - Physician Review Events Since Last Encounter (Free Text): 06/12/17 10:10 pt extubated. Discontinued dobutamine. Started milrinone, norepinephrine. Subjective (Free Text): 06/12/17 10:11 Patient seen and examined at bedside. No acute events overnight. Denies fever, chills, nausea, vomiting, abdominal pain, leg swelling, sob, cp. Reports chronic right upper extremity pain at her humeral fracture site. CCU Objective - Vital Signs / Intake & Output Vital Signs (Last 4 hours): Vital Signs Temp Pulse Resp BP Pulse Ox 06/12/17 09:14 108 H 110/46 L 06/12/17 06:30 99.5 F 107 H 22 99 06/12/17 06:20 99.5 F 83 18 98 06/12/17 06:10 99.5 F 75 16 100 06/12/17 06:05 99.5 F 105 H 92 L 06/12/17 06:00 99.5 F 75 17 117/52 L 100 06/12/17 05:53 99.5 F 84 20 121/56 L 99 06/12/17 05:52 99.5 F 115 H 96 06/12/17 05:50 99.5 F 108 H 66 L Intake and Output (Last 8hrs): Intake & Output 06/11/17 06/12/17 06/12/17 22:59 06:59 14:59 Intake Total 1124 1005 100 Output Total 350 350 Balance 774 655 100 Weight 92 lb 2 oz Intake: IV 924 1005 100 Left upper chest 1005 Right Forearm 900 Other 200 Output: Urine 350 350 Urethral (Cota) 350 350 - Physical Exam Head: Positive for: Atraumatic, Normocephalic Pupils: Positive for: PERRL, Other (no nystagmus, no photophobia, sclera anicteric) Extroacular Muscles: Positive for: EOMI Conjunctiva: Positive for: Normal Ears: Positive for: Normal Mouth: Positive for: Moist Mucous Membranes Pharnyx: Positive for: Normal Nose (External): Positive for: Atraumatic Nose (Internal): Positive for: Normal Inspection Neck: Positive for: Normal Range of Motion. Negative for: Meningeal Signs, MIDLINE TENDERNESS, JVD Respiratory/Chest: Positive for: Decreased Breath Sounds. Negative for: Respiratory Distress, Accessory Muscle Use Cardiovascular: Positive for: Regular Rate and Rhythm, Normal S1, S2. Negative for: Murmurs Abdomen: Positive for: Normal Bowel Sounds. Negative for: Tenderness, Distention, Peritoneal Signs, Rebound, Guarding, McBurney's Point Tender, Mass/ Organomegaly Back: Positive for: Normal Inspection. Negative for: CVA Tenderness, Midline Tenderness Upper Extremity: Positive for: Normal Inspection, Normal ROM, NORMAL PULSES. Negative for: Cyanosis, Edema Lower Extremity: Positive for: NORMAL PULSES, Capillary Refill < 2 s. Negative for: CALF TENDERNESS, Swelling, Erythema, Temperature Abnormalties Neurological: Positive for: GCS=15, CN II-XII Intact, Speech Normal Skin: Positive for: Warm, Dry, Normal Color. Negative for: Rashes Psychiatric: Positive for: Alert, Oriented x 3 - Medications Active Medications: Active Medications Generic Name Dose Route Start Last Admin Trade Name Freq PRN Reason Stop Dose Admin Acetaminophen 650 mg 06/10/17 17:04 06/10/17 17:18 Tylenol 650 Mg Supp RC 650 mg Q6H PRN Administration Fever >100.4 F Albuterol/Ipratropium 3 ml 06/10/17 20:00 06/12/17 07:30 Duoneb 3 Mg/0.5 Mg (3 Ml) Ud IH 3 ml [id number] BELEM Administration Budesonide 0.5 mg 06/10/17 20:00 06/12/17 07:30 Pulmicort Respules IH 0.5 mg [id number] BELEM Administration Heparin Sodium (Porcine) 5,000 units 06/10/17 22:00 06/11/17 21:02 Heparin SC 5,000 units Q12 BELEM Administration Protocol Ceftriaxone Sodium 1 gm in 100 mls @ 100 mls/hr 06/11/17 10:00 06/11/17 10:02 Rocephin 1 Gram Ivpb IVPB 06/15/17 10:59 100 mls/hr DAILY BELEM Administration Protocol Dextrose/Sodium Chloride 1,000 mls @ 75 mls/hr 06/10/17 17:15 06/11/17 20:55 Dextrose 5%/0.45% Ns 1000 Ml IV 75 mls/hr .[id number] BELEM Administration Propofol 1,000 mg in 100 mls @ 1.296 mls/hr 06/10/17 20:40 06/11/17 07:04 Diprivan IV 19.28 mcg/kg/min .Q24H PRN 5 mls/hr TITRATE PER MD ORDER Titration Protocol 5 MCG/KG/MIN Azithromycin 500 mg in 250 mls @ 250 mls/hr 06/11/17 07:15 06/12/17 09:13 Zithromax 500mg In Ns IVPB 250 mls/hr Q24H BELEM Administration Protocol Dobutamine HCl/Dextrose 500 mg in 250 mls @ 2.592 mls/hr 06/11/17 07:25 06/11 17:30 Dobutamine/Dextrose 5% 500mg/250ml IV 0 mcg/kg/min .Q24H PRN 0 mls/hr TITRATE PER PROTOCOL Titration Protocol 2 MCG/KG/MIN Milrinone Lactate/Dextrose 100 mls @ 4.861 mls/hr 06/11/17 17:18 06/12/17 09: 14 Primacor 20mg/100ml D5w IV 0.375 mcg/kg/min .[id number] PRN 4.861 mls/hr TITRATE PER MD ORDER Administration Protocol 0.375 MCG/KG/MIN Norepinephrine Bitartrate 4 mg 254 mls @ 15.24 mls/hr 06/11/17 18:36 22:00 / Sodium Chloride IV 2 mcg/min .[id number] PRN 7.62 mls/hr Systolic Blood Pressure Titration Protocol 4 MCG/MIN Potassium Chloride 20 meq in 100 mls @ 50 mls/hr 06/12/17 07:00 06/12/17 07: 37 Potassium Chloride 20 Meq/100 Ml IVPB 06/12/17 10:59 50 mls/hr Q2H BELEM Administration Methylprednisolone 40 mg 06/10/17 22:00 06/11/17 21:02 Solu-Medrol IVP 40 mg Q12 BELEM Administration Pantoprazole Sodium 40 mg 06/11/17 10:00 06/11/17 10:03 Protonix Inj IVP 40 mg DAILY BELEM Administration - Patient Studies Lab Studies: Microbiology Studies 06/10/17 10:31 MRSA Culture (Admit) - Final Nose MRSA NOT DETECTED 06/10/17 21:30 Gram Stain - Final Trachasp Lab Studies 06/12/17 06/12/17 06/12/17 Range/Units 06:00 05:59 05:59 WBC 15.1 H D (4.5-11.0) 10^3/ul RBC 2.89 L (3.5-6.1) 10^6/uL Hgb 9.1 L D (12.0-16.0) g/dL Hct 27.6 L (36.0-48.0) % MCV 95.5 (80.0-105.0) fl MCH 31.5 (25.0-35.0) pg MCHC 33.0 (31.0-37.0) g/dl RDW 19.5 H (11.5-14.5) % Plt Count 189 (120.0-450.0) 10^3/uL MPV 10.0 (7.0-11.0) fl pCO2 (35-45) mm/Hg pO2 (80-100) mm/Hg HCO3 (21-28) mmol/L ABG pH (7.35-7.45) ABG Total CO2 (22-28) mmol.L ABG O2 Saturation (95-98) % ABG O2 Content (15-23) ML/dl ABG Base Excess (-2.0-3.0) mmol/L ABG Hemoglobin (11.7-17.4) g/dL ABG Carboxyhemoglobin (0.5-1.5) % POC ABG HHb (Measured) (0-5) % ABG Methemoglobin (0.0-3.0) % ABG O2 Capacity (16-24) mL/dl Hgb O2 Saturation (95.0-98.0) % FiO2 % Sodium 145 145 (132-148) mmol/L Potassium 2.9 L* 2.8 L* D (3.6-5.0) mmol/L Chloride 115 H 115 H (98-107) mmol/L Carbon Dioxide 21 21 (21-33) mmol/L Anion Gap 11 12 (10-20) BUN 15 16 (7-21) mg/dL Creatinine 0.6 L 0.6 L (0.7-1.2) mg/dl Est GFR ( Amer) > 60 > 60 Est GFR (Non-Af Amer) > 60 > 60 POC Glucose (mg/dL) (65-110) mg/dL Random Glucose 129 H 129 H (70-110) mg/dL Calcium 8.6 8.7 (8.4-10.5) mg/dL Procalcitonin (0.19-0.49) NG/ML 06/12/17 06/11/17 06/11/17 Range/Units 05:15 23:43 17:39 WBC (4.5-11.0) 10^3/ul RBC (3.5-6.1) 10^6/uL Hgb (12.0-16.0) g/dL Hct (36.0-48.0) % MCV (80.0-105.0) fl MCH (25.0-35.0) pg MCHC (31.0-37.0) g/dl RDW (11.5-14.5) % Plt Count (120.0-450.0) 10^3/uL MPV (7.0-11.0) fl pCO2 35 (35-45) mm/Hg pO2 109.0 H (80-100) mm/Hg HCO3 21.7 (21-28) mmol/L ABG pH 7.40 (7.35-7.45) ABG Total CO2 22.8 (22-28) mmol.L ABG O2 Saturation 99.3 H (95-98) % ABG O2 Content 12.4 L (15-23) ML/dl ABG Base Excess -2.7 L (-2.0-3.0) mmol/L ABG Hemoglobin 9.0 L (11.7-17.4) g/dL ABG Carboxyhemoglobin 1.6 H (0.5-1.5) % POC ABG HHb (Measured) 0.7 (0-5) % ABG Methemoglobin 1.1 (0.0-3.0) % ABG O2 Capacity 12.5 L (16-24) mL/dl Hgb O2 Saturation 96.7 (95.0-98.0) % FiO2 40.0 % Sodium (132-148) mmol/L Potassium (3.6-5.0) mmol/L Chloride (98-107) mmol/L Carbon Dioxide (21-33) mmol/L Anion Gap (10-20) BUN (7-21) mg/dL Creatinine (0.7-1.2) mg/dl Est GFR ( Amer) Est GFR (Non-Af Amer) POC Glucose (mg/dL) 202 H 144 H (65-110) mg/dL Random Glucose (70-110) mg/dL Calcium (8.4-10.5) mg/dL Procalcitonin (0.19-0.49) NG/ML 06/11/17 06/11/17 06/11/17 Range/Units 11:34 11:10 09:00 WBC (4.5-11.0) 10^3/ul RBC (3.5-6.1) 10^6/uL Hgb (12.0-16.0) g/dL Hct (36.0-48.0) % MCV (80.0-105.0) fl MCH (25.0-35.0) pg MCHC (31.0-37.0) g/dl RDW (11.5-14.5) % Plt Count (120.0-450.0) 10^3/uL MPV (7.0-11.0) fl pCO2 38 (35-45) mm/Hg pO2 126.0 H (80-100) mm/Hg HCO3 20.5 L (21-28) mmol/L ABG pH 7.34 L (7.35-7.45) ABG Total CO2 21.7 L (22-28) mmol.L ABG O2 Saturation 99.7 H (95-98) % ABG O2 Content 13.5 L (15-23) ML/dl ABG Base Excess -4.8 L (-2.0-3.0) mmol/L ABG Hemoglobin 9.7 L (11.7-17.4) g/dL ABG Carboxyhemoglobin 1.5 (0.5-1.5) % POC ABG HHb (Measured) 0.3 (0-5) % ABG Methemoglobin 1.1 (0.0-3.0) % ABG O2 Capacity 13.5 L (16-24) mL/dl Hgb O2 Saturation 97.1 (95.0-98.0) % FiO2 50.0 % Sodium (132-148) mmol/L Potassium (3.6-5.0) mmol/L Chloride (98-107) mmol/L Carbon Dioxide (21-33) mmol/L Anion Gap (10-20) BUN (7-21) mg/dL Creatinine (0.7-1.2) mg/dl Est GFR ( Amer) Est GFR (Non-Af Amer) POC Glucose (mg/dL) 119 H (65-110) mg/dL Random Glucose (70-110) mg/dL Calcium (8.4-10.5) mg/dL Procalcitonin 1.96 H (0.19-0.49) NG/ML Laboratory Results - last 24 hr 06/11/17 06/11/17 06/11/17 09:00 11:10 11:34 WBC RBC Hgb Hct MCV MCH MCHC RDW Plt Count MPV pCO2 38 pO2 126.0 H HCO3 20.5 L ABG pH 7.34 L ABG Total CO2 21.7 L ABG O2 Saturation 99.7 H ABG O2 Content 13.5 L ABG Base Excess -4.8 L ABG Hemoglobin 9.7 L ABG Carboxyhemoglobin 1.5 POC ABG HHb (Measured) 0.3 ABG Methemoglobin 1.1 ABG O2 Capacity 13.5 L Hgb O2 Saturation 97.1 FiO2 50.0 Sodium Potassium Chloride Carbon Dioxide Anion Gap BUN Creatinine Est GFR ( Amer) Est GFR (Non-Af Amer) POC Glucose (mg/dL) 119 H Random Glucose Calcium Procalcitonin 1.96 H 06/11/17 06/11/17 06/12/17 17:39 23:43 05:15 WBC RBC Hgb Hct MCV MCH MCHC RDW Plt Count MPV pCO2 35 pO2 109.0 H HCO3 21.7 ABG pH 7.40 ABG Total CO2 22.8 ABG O2 Saturation 99.3 H ABG O2 Content 12.4 L ABG Base Excess -2.7 L ABG Hemoglobin 9.0 L ABG Carboxyhemoglobin 1.6 H POC ABG HHb (Measured) 0.7 ABG Methemoglobin 1.1 ABG O2 Capacity 12.5 L Hgb O2 Saturation 96.7 FiO2 40.0 Sodium Potassium Chloride Carbon Dioxide Anion Gap BUN Creatinine Est GFR ( Amer) Est GFR (Non-Af Amer) POC Glucose (mg/dL) 144 H 202 H Random Glucose Calcium Procalcitonin 06/12/17 06/12/17 06/12/17 05:59 05:59 06:00 WBC 15.1 H D RBC 2.89 L Hgb 9.1 L D Hct 27.6 L MCV 95.5 MCH 31.5 MCHC 33.0 RDW 19.5 H Plt Count 189 MPV 10.0 pCO2 pO2 HCO3 ABG pH ABG Total CO2 ABG O2 Saturation ABG O2 Content ABG Base Excess ABG Hemoglobin ABG Carboxyhemoglobin POC ABG HHb (Measured) ABG Methemoglobin ABG O2 Capacity Hgb O2 Saturation FiO2 Sodium 145 145 Potassium 2.8 L* D 2.9 L* Chloride 115 H 115 H Carbon Dioxide 21 21 Anion Gap 12 11 BUN 16 15 Creatinine 0.6 L 0.6 L Est GFR ( Amer) > 60 > 60 Est GFR (Non-Af Amer) > 60 > 60 POC Glucose (mg/dL) Random Glucose 129 H 129 H Calcium 8.7 8.6 Procalcitonin Fingerstick Blood Sugar Results: 129 Review of Systems - Review of Systems All systems: reviewed and no additional remarkable complaints except Review of Systems: as per HPI Assessment/Plan - Assessment and Plan (Free Text) Assessment: 66 year old female with PMH COPD, CHF with EF 15%, cardiomyopathy, alcohol abuse , DM, Hodgkin's lymphoma, ITP, depression, admitted to ICU for hypercapenic, hypoxic respiratory acidosis 2/2 opiate overdose, COPD exacerbation. Pt s/p extubation, on NC, on milrionone, will discontinue Norepi: Neuro: - AOx4 - Monitor Pulm: - maintain SPO2 >90-94 - Duonebs - pulmicort, solumedrol - rocephin, azithromycin - on NC CV: - On milrinone - hc of CHF with EF 15% - Discontinue Norepinephrine - Maintaince fluid with D51/2NS @ 75 - BNP 8950 - maintain MAP > 65 - Cont to monitor GI: - ppx with protonix IV - Passed bedside swallow - soft diet Renal: - Stable BUn/Cr - hypokaelmic. repleted. - replete electrolytes as needed ID: - procal high - On Rocephin and Azithromycin - no fevers Heme: - s/p 1 unit prbcs - Stable - Monitor H/H GI/ DVT ppx - Protonix and Heparin SQ Case and plan was reviewed and discussed in detail with Dr Nicholson. - Date & Time Date: 06/12/17 Time: 10:20 <Mauri Nicholson - Last Filed: 06/12/17 10:42> CCU Objective - Vital Signs / Intake & Output Vital Signs (Last 4 hours): Vital Signs Pulse BP 06/12/17 09:14 108 H 110/46 L Intake and Output (Last 8hrs): Intake & Output 06/11/17 06/12/17 06/12/17 22:59 06:59 14:59 Intake Total 1124 1005 100 Output Total 350 350 Balance 774 655 100 Weight 92 lb 2 oz Intake: IV 924 1005 100 Left upper chest 1005 Right Forearm 900 Other 200 Output: Urine 350 350 Urethral (Cota) 350 350 - Medications Active Medications: Active Medications Generic Name Dose Route Start Last Admin Trade Name Freq PRN Reason Stop Dose Admin Acetaminophen 650 mg 06/10/17 17:04 06/10/17 17:18 Tylenol 650 Mg Supp RC 650 mg Q6H PRN Administration Fever >100.4 F Albuterol/Ipratropium 3 ml 06/10/17 20:00 06/12/17 07:30 Duoneb 3 Mg/0.5 Mg (3 Ml) Ud IH 3 ml [id number] BELEM Administration Budesonide 0.5 mg 06/10/17 20:00 06/12/17 07:30 Pulmicort Respules IH 0.5 mg [id number] BELEM Administration Heparin Sodium (Porcine) 5,000 units 06/10/17 22:00 06/11/17 21:02 Heparin SC 5,000 units Q12 BELEM Administration Protocol Ceftriaxone Sodium 1 gm in 100 mls @ 100 mls/hr 06/11/17 10:00 06/12/17 10:13 Rocephin 1 Gram Ivpb IVPB 06/15/17 10:59 100 mls/hr DAILY BELEM Administration Protocol Dextrose/Sodium Chloride 1,000 mls @ 75 mls/hr 06/10/17 17:15 06/11/17 20:55 Dextrose 5%/0.45% Ns 1000 Ml IV 75 mls/hr .[id number] BELEM Administration Propofol 1,000 mg in 100 mls @ 1.296 mls/hr 06/10/17 20:40 06/11/17 07:04 Diprivan IV 19.28 mcg/kg/min .Q24H PRN 5 mls/hr TITRATE PER MD ORDER Titration Protocol 5 MCG/KG/MIN Azithromycin 500 mg in 250 mls @ 250 mls/hr 06/11/17 07:15 06/12/17 09:13 Zithromax 500mg In Ns IVPB 250 mls/hr Q24H BELEM Administration Protocol Milrinone Lactate/Dextrose 100 mls @ 4.861 mls/hr 06/11/17 17:18 06/12/17 09: 14 Primacor 20mg/100ml D5w IV 0.375 mcg/kg/min .[id number] PRN 4.861 mls/hr TITRATE PER MD ORDER Administration Protocol 0.375 MCG/KG/MIN Norepinephrine Bitartrate 4 mg 254 mls @ 15.24 mls/hr 06/11/17 18:36 22:00 / Sodium Chloride IV 2 mcg/min .[id number] PRN 7.62 mls/hr Systolic Blood Pressure Titration Protocol 4 MCG/MIN Potassium Chloride 20 meq in 100 mls @ 50 mls/hr 06/12/17 07:00 06/12/17 10: 12 Potassium Chloride 20 Meq/100 Ml IVPB 06/12/17 10:59 50 mls/hr Q2H BELEM Administration Methylprednisolone 40 mg 06/10/17 22:00 06/12/17 10:14 Solu-Medrol IVP 40 mg Q12 BELEM Administration Pantoprazole Sodium 40 mg 06/11/17 10:00 06/12/17 10:14 Protonix Inj IVP 40 mg DAILY BELEM Administration - Patient Studies Lab Studies: Microbiology Studies 06/10/17 10:31 MRSA Culture (Admit) - Final Nose MRSA NOT DETECTED 06/10/17 21:30 Gram Stain - Final Trachasp Lab Studies 06/12/17 06/12/17 06/12/17 Range/Units 06:00 05:59 05:59 WBC 15.1 H D (4.5-11.0) 10^3/ul RBC 2.89 L (3.5-6.1) 10^6/uL Hgb 9.1 L D (12.0-16.0) g/dL Hct 27.6 L (36.0-48.0) % MCV 95.5 (80.0-105.0) fl MCH 31.5 (25.0-35.0) pg MCHC 33.0 (31.0-37.0) g/dl RDW 19.5 H (11.5-14.5) % Plt Count 189 (120.0-450.0) 10^3/uL MPV 10.0 (7.0-11.0) fl pCO2 (35-45) mm/Hg pO2 (80-100) mm/Hg HCO3 (21-28) mmol/L ABG pH (7.35-7.45) ABG Total CO2 (22-28) mmol.L ABG O2 Saturation (95-98) % ABG O2 Content (15-23) ML/dl ABG Base Excess (-2.0-3.0) mmol/L ABG Hemoglobin (11.7-17.4) g/dL ABG Carboxyhemoglobin (0.5-1.5) % POC ABG HHb (Measured) (0-5) % ABG Methemoglobin (0.0-3.0) % ABG O2 Capacity (16-24) mL/dl Hgb O2 Saturation (95.0-98.0) % FiO2 % Sodium 145 145 (132-148) mmol/L Potassium 2.9 L* 2.8 L* D (3.6-5.0) mmol/L Chloride 115 H 115 H (98-107) mmol/L Carbon Dioxide 21 21 (21-33) mmol/L Anion Gap 11 12 (10-20) BUN 15 16 (7-21) mg/dL Creatinine 0.6 L 0.6 L (0.7-1.2) mg/dl Est GFR ( Amer) > 60 > 60 Est GFR (Non-Af Amer) > 60 > 60 POC Glucose (mg/dL) (65-110) mg/dL Random Glucose 129 H 129 H (70-110) mg/dL Calcium 8.6 8.7 (8.4-10.5) mg/dL Procalcitonin (0.19-0.49) NG/ML 06/12/17 06/11/17 06/11/17 Range/Units 05:15 23:43 17:39 WBC (4.5-11.0) 10^3/ul RBC (3.5-6.1) 10^6/uL Hgb (12.0-16.0) g/dL Hct (36.0-48.0) % MCV (80.0-105.0) fl MCH (25.0-35.0) pg MCHC (31.0-37.0) g/dl RDW (11.5-14.5) % Plt Count (120.0-450.0) 10^3/uL MPV (7.0-11.0) fl pCO2 35 (35-45) mm/Hg pO2 109.0 H (80-100) mm/Hg HCO3 21.7 (21-28) mmol/L ABG pH 7.40 (7.35-7.45) ABG Total CO2 22.8 (22-28) mmol.L ABG O2 Saturation 99.3 H (95-98) % ABG O2 Content 12.4 L (15-23) ML/dl ABG Base Excess -2.7 L (-2.0-3.0) mmol/L ABG Hemoglobin 9.0 L (11.7-17.4) g/dL ABG Carboxyhemoglobin 1.6 H (0.5-1.5) % POC ABG HHb (Measured) 0.7 (0-5) % ABG Methemoglobin 1.1 (0.0-3.0) % ABG O2 Capacity 12.5 L (16-24) mL/dl Hgb O2 Saturation 96.7 (95.0-98.0) % FiO2 40.0 % Sodium (132-148) mmol/L Potassium (3.6-5.0) mmol/L Chloride (98-107) mmol/L Carbon Dioxide (21-33) mmol/L Anion Gap (10-20) BUN (7-21) mg/dL Creatinine (0.7-1.2) mg/dl Est GFR ( Amer) Est GFR (Non-Af Amer) POC Glucose (mg/dL) 202 H 144 H (65-110) mg/dL Random Glucose (70-110) mg/dL Calcium (8.4-10.5) mg/dL Procalcitonin (0.19-0.49) NG/ML 06/11/17 06/11/17 06/11/17 Range/Units 11:34 11:10 09:00 WBC (4.5-11.0) 10^3/ul RBC (3.5-6.1) 10^6/uL Hgb (12.0-16.0) g/dL Hct (36.0-48.0) % MCV (80.0-105.0) fl MCH (25.0-35.0) pg MCHC (31.0-37.0) g/dl RDW (11.5-14.5) % Plt Count (120.0-450.0) 10^3/uL MPV (7.0-11.0) fl pCO2 38 (35-45) mm/Hg pO2 126.0 H (80-100) mm/Hg HCO3 20.5 L (21-28) mmol/L ABG pH 7.34 L (7.35-7.45) ABG Total CO2 21.7 L (22-28) mmol.L ABG O2 Saturation 99.7 H (95-98) % ABG O2 Content 13.5 L (15-23) ML/dl ABG Base Excess -4.8 L (-2.0-3.0) mmol/L ABG Hemoglobin 9.7 L (11.7-17.4) g/dL ABG Carboxyhemoglobin 1.5 (0.5-1.5) % POC ABG HHb (Measured) 0.3 (0-5) % ABG Methemoglobin 1.1 (0.0-3.0) % ABG O2 Capacity 13.5 L (16-24) mL/dl Hgb O2 Saturation 97.1 (95.0-98.0) % FiO2 50.0 % Sodium (132-148) mmol/L Potassium (3.6-5.0) mmol/L Chloride (98-107) mmol/L Carbon Dioxide (21-33) mmol/L Anion Gap (10-20) BUN (7-21) mg/dL Creatinine (0.7-1.2) mg/dl Est GFR ( Amer) Est GFR (Non-Af Amer) POC Glucose (mg/dL) 119 H (65-110) mg/dL Random Glucose (70-110) mg/dL Calcium (8.4-10.5) mg/dL Procalcitonin 1.96 H (0.19-0.49) NG/ML Laboratory Results - last 24 hr 06/11/17 06/11/17 06/11/17 09:00 11:10 11:34 WBC RBC Hgb Hct MCV MCH MCHC RDW Plt Count MPV pCO2 38 pO2 126.0 H HCO3 20.5 L ABG pH 7.34 L ABG Total CO2 21.7 L ABG O2 Saturation 99.7 H ABG O2 Content 13.5 L ABG Base Excess -4.8 L ABG Hemoglobin 9.7 L ABG Carboxyhemoglobin 1.5 POC ABG HHb (Measured) 0.3 ABG Methemoglobin 1.1 ABG O2 Capacity 13.5 L Hgb O2 Saturation 97.1 FiO2 50.0 Sodium Potassium Chloride Carbon Dioxide Anion Gap BUN Creatinine Est GFR ( Amer) Est GFR (Non-Af Amer) POC Glucose (mg/dL) 119 H Random Glucose Calcium Procalcitonin 1.96 H 06/11/17 06/11/17 06/12/17 17:39 23:43 05:15 WBC RBC Hgb Hct MCV MCH MCHC RDW Plt Count MPV pCO2 35 pO2 109.0 H HCO3 21.7 ABG pH 7.40 ABG Total CO2 22.8 ABG O2 Saturation 99.3 H ABG O2 Content 12.4 L ABG Base Excess -2.7 L ABG Hemoglobin 9.0 L ABG Carboxyhemoglobin 1.6 H POC ABG HHb (Measured) 0.7 ABG Methemoglobin 1.1 ABG O2 Capacity 12.5 L Hgb O2 Saturation 96.7 FiO2 40.0 Sodium Potassium Chloride Carbon Dioxide Anion Gap BUN Creatinine Est GFR ( Amer) Est GFR (Non-Af Amer) POC Glucose (mg/dL) 144 H 202 H Random Glucose Calcium Procalcitonin 06/12/17 06/12/17 06/12/17 05:59 05:59 06:00 WBC 15.1 H D RBC 2.89 L Hgb 9.1 L D Hct 27.6 L MCV 95.5 MCH 31.5 MCHC 33.0 RDW 19.5 H Plt Count 189 MPV 10.0 pCO2 pO2 HCO3 ABG pH ABG Total CO2 ABG O2 Saturation ABG O2 Content ABG Base Excess ABG Hemoglobin ABG Carboxyhemoglobin POC ABG HHb (Measured) ABG Methemoglobin ABG O2 Capacity Hgb O2 Saturation FiO2 Sodium 145 145 Potassium 2.8 L* D 2.9 L* Chloride 115 H 115 H Carbon Dioxide 21 21 Anion Gap 12 11 BUN 16 15 Creatinine 0.6 L 0.6 L Est GFR ( Amer) > 60 > 60 Est GFR (Non-Af Amer) > 60 > 60 POC Glucose (mg/dL) Random Glucose 129 H 129 H Calcium 8.7 8.6 Procalcitonin Critical Care Progress Note - Nutrition Nutrition: Nutrition Category Date Time Status Consistent Carbohydrate [DIET] Diets 06/12/17 Lunch Ordered Assessment/Plan - Assessment and Plan (Free Text) Assessment: patient seen and examined on rounds with resident, agree with note with following additions/exceptions: Patient is 66 year old female with PMH COPD, CHF with EF 15%, cardiomyopathy, alcohol abuse, DM, Hodgkin's lymphoma, ITP, depression, admitted to ICU for hypercapenic, hypoxic respiratory acidosis 2/2 opiate overdose, COPD exacerbation, s/p extubation. Currently afebrile, HD stable, OFF levophed drip. Patient continues to be on MIlrinone drip, with adequate MAP, UOP. Awake, alert , in NAD, tolerating PO diet. Hypoxic resp faiure, s/p extubation COPD CHF, systolic Anemia Hypokalemia EtOH abuse Recommend: - supp o2 as needed, BIPAP as needed - Duonebs PRN - Solumedrol IV - Cont with Rocephin Azithro - follow up cultures, Procal - cont with Milrinone - monitor HH - Lasix IV 40mg BID - FS control - replete K - Ativan PRN, MVT, thiamine, Folic Acid - GI ppx - DVT ppx - Monitor in MICU Critical care time 40 minutes
[2017-06-12] MEDS: cefTRIAXone 1 gm 1 GM/100 ML BAG IVPB SCH (10:13)
[2017-06-12] MEDS: MethylPREDNISolone 40 mg Vial IVP SCH ×2 (10:14→22:57)
--- NOTE | 2017-06-12 12:06 | PN ---
DATE: 06/11/2017 SUBJECTIVE: The patient is a 66-year-old female who was brought to the emergency room with mental status changes and difficulty breathing by her . The patient received Narcan x3 in the emergency room with some improvement; however, once again had difficulty breathing and therefore was intubated and admitted to the Intensive Care Unit. 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 She had been hospitalized for congestive heart failure, status post myocardial infarction and a chronically fractured right humerus, alcoholic bone marrow suppression. PHYSICAL EXAMINATION GENERAL: When seen in the Intensive Care Unit, the patient was sedated. She had been extubated and is currently on a BiPAP mask. LUNGS: Clear anteriorly. HEART: Regular, tachycardic at about 100 beats per minute, pulse ox is 96%. LABORATORY DATA: This morning's laboratory showed the white blood cell count to be 8.2, hemoglobin is 11.2 after receiving 1 unit of packed red blood cells, hematocrit is 35.1, platelet is 157. Sodium is 146, potassium 3.7, blood urea nitrogen 16, creatinine 0.7. We are continuing to follow the patient closely. The case was discussed with the patient's and he understood. Baljeet King MD MTDD
--- NOTE | 2017-06-12 13:55 | PROCN ---
DATE: 06/11/2017 PROCEDURE: Right internal jugular central venous catheter placement. INDICATION: Hemodynamic instability and need for vasopressor support and ionotropic support. DESCRIPTION OF THE PROCEDURE: After obtaining informed consent, operational area was sterilized. Maximum barrier precautions used. Timeout performed. Right IJ was cannulated by modified sterile Seldinger technique under real-time ultrasound guidance. Guidewire removed. Hemostasis achieved. Sterile dressings applied. The patient tolerated the procedure well. Position confirmed with chest x-ray. Ash Pierson MD
[2017-06-12] MEDS: Dextrose 5%/0.45% NS 1,000 ML IV SCH (14:26)
[2017-06-12] MEDS ORDERED: Morphine 4 mg/ml ISec IVP ONE (18:28)
--- NOTE | 2017-06-12 22:22 | PN ---
DATE: The patient is in ICU, bed 7, on respiratory support with IV fluids. Medications were reviewed. Labs as well as physician practice consultant's and hospitalist's notes reviewed. Family/spouse are up-to-date on her conditioning as well. Tripp King MD
[2017-06-13] MEDS: Albuterol-Ipratrop 3 mg / 0.5 (3 ml) UD IH SCH ×4 (03:00→20:15)
--- NOTE | 2017-06-13 03:00 | CON ---
DATE: 06/12/2017 CARDIOLOGY CONSULTATION HISTORY OF PRESENT ILLNESS: The patient is a 66-year-old woman, who presented with respiratory distress. She had a mix of opiates in her blood. PAST MEDICAL HISTORY: The patient's past medical history consists of a long history of alcoholism resulting in a end-stage dilated cardiomyopathy. The patient has diffuse weakness as well as COPD. She has been admitted multiple times for respiratory distress. Currently, the patient is extubated. She is on intravenous Primacor. PHYSICAL EXAMINATION: VITAL SIGNS: Blood pressure is 90 systolic, heart rate is 120, normal sinus tachycardia. NECK: Negative JVD. LUNGS: Decreased breath sounds. HEART: Reveals S1 and S2. EXTREMITIES: Without edema. LABORATORY DATA: EKG is unchanged from the previous. Her laboratories are noted. IMPRESSION: 1. Status post respiratory failure complicated by opiate intake. 2. End-stage dilated cardiomyopathy. 3. Coronary artery disease. 4. Chronic obstructive pulmonary disease. 5. Anemia. 6. Cachexia. 7. Weakness. PLAN: Given these findings, given her tachycardia and lack of CHF symptoms, we will taper her IV Primacor today. Michael Schulte MD
[2017-06-13] MEDS ORDERED: Morphine 4 mg/ml ISec IVP STA (06:06)
[2017-06-13] MEDS: Budesonide 0.5 mg/2 ml Inhal Susp UD IH SCH ×2 (07:50→20:15)
[2017-06-13] MEDS: Azithromycin 500MG/NS 250ml 500 MG/250 ML BAG IVPB SCH (08:01)
--- NOTE | 2017-06-13 08:56 | PN ---
DATE: 06/13/2017(640am-730am) PULMONARY NOTE SUBJECTIVE: The patient remains extubated. She appears comfortable this morning. She is not short of breath at rest. PHYSICAL EXAMINATION: VITAL SIGNS: Last temperature recorded is 99.1, pulse is 91, respirations 18/20, blood pressure 99/42. Oxygen saturation on nasal cannula is 99%. HEENT: Normocephalic, atraumatic. NECK: No JVD. CARDIOVASCULAR: Positive S1, S2. Positive S3 gallop. LUNGS: Less crackles at the bases. Less rhonchi. No wheezing. EXTREMITIES: Mild edema. No cyanosis or clubbing. Calves are nontender to palpation. GI: Abdomen is soft, nontender, nondistended. Bowel sounds are positive. SKIN: No acute rash. NEUROLOGIC: Exam limited at the present time. PERTINENT LABORATORY DATA: Chest x-ray was done this morning and reviewed. It is a poor film, which is rotated. There may be an increase in the interstitial changes in the right lung, probably secondary to film rotation. Arterial blood gas was [id number] done yet. IMPRESSION: 1. Recurrent respiratory failure. 2. Recurrent congestive heart failure. 3. Advanced alcoholic cardiomyopathy. 4. Advanced chronic obstructive pulmonary disease. 5. Rule out pneumonia-right lower lobe. 6. Coronary artery disease. 7. Anemia. Plan: The patient remains extubated. She is not short of breath at rest. She does state to feeling better overall. I did discuss the case with the nurses medical assistants phlebotomists at length. The nurses medical assistants phlebotomists informed me that the patient had a good night. I did review the chest x-ray as above. The chest x-ray is a rotated film. There may be increased interstitial changes in the right lung. As above, arterial blood gas was ordered-pending. Repeat AM chest film also ordered. Blood cultures remain negative. The temperatures are now resolving. I will continue with the current antibiotic therapy for now. On physical exam, there is less bronchospasm noted. In addition, the oxygen saturation on nasal cannula is now 99%. I will continue with the current nebulizer treatments and low-dose intravenous steroids for now. Input by Dr. Schulte (Cardiology) is noted. Patient remains on a milrinone drip. The clinical status of the patient is significantly improved-compared to the initial presentation. However, again, the future status/prognosis for this patient remains very poor. All are aware. I did discuss the above with the ICU team earlier this morning. I will also discuss the above with the attending physician. Adam Parker MD [id number]
[2017-06-13 09:04] LABS: GRAN # 7.55 (1.4-6.5); GRAN % 95.2 % (50.0-68.0); HEMOGLOBIN 8.7 g/dL (12.0-16.0); LYMPH # 0.2 (1.2-3.4); MEAN CELL VOLUME 95.7 fl (80.0-105.0); MEAN CORPUSCULAR HEMOGLOBIN 31.3 pg (25.0-35.0); MEAN CORPUSCULAR HGB CONC 32.7 g/dl (31.0-37.0); MEAN PLATELET VOLUME 9.5 fl (7.0-11.0); MONO # 0.2 (0.1-0.6); MONO % 2.8 % (1.0-6.0); RBC 2.78 10^6/uL (3.5-6.1); RED CELL DISTRIBUTION WIDTH 19.1 % (11.5-14.5); WHITE BLOOD COUNT 7.9 10^3/ul (4.5-11.0)
[2017-06-13 09:10] LABS: INR 1.2 (0.93-1.08); PROTHROMBIN TIME 13.9 SECONDS (9.4-12.5)
[2017-06-13 09:15] LABS: ALBUMIN 2.4 g/dL (3.0-4.8); ALT/SGPT 22 U/L (7-56); AST/SGOT 16 U/L (14-36); BLOOD UREA NITROGEN 14 mg/dL (7-21); CALCIUM 9.1 mg/dL (8.4-10.5); GFR AFRICAN-AMERICAN > 60; GFR NON-AFRICAN AMERICAN > 60
--- NOTE | 2017-06-13 09:39 | RAD ---
HISTORY: f/u COMPARISON: 06/12/2017 FINDINGS: LUNGS: There is a right-sided interstitial infiltrate. The left side is unremarkable PLEURA: No significant pleural effusion identified, no pneumothorax apparent. CARDIOVASCULAR: Normal. OSSEOUS STRUCTURES: No significant abnormalities. VISUALIZED UPPER ABDOMEN: Normal. OTHER FINDINGS: Central lines are unchanged IMPRESSION: Slight increase in right-sided interstitial infiltrate
[2017-06-13] MEDS: MethylPREDNISolone 40 mg Vial IVP SCH (10:39)
[2017-06-13] MEDS: cefTRIAXone 1 gm 1 GM/100 ML BAG IVPB SCH (10:39)
[2017-06-13] MEDS: Dextrose 5%/0.45% NS 1,000 ML IV SCH ×2 (10:41→21:49)
--- NOTE | 2017-06-13 12:22 | CP.PCM.PN ---
Subjective - Date & Time of Evaluation Date of Evaluation: 06/13/17 Time of Evaluation: 07:10 - Subjective Subjective: Pt seen and examined Complaining of nausea and back pain Objective - Vital Signs/Intake and Output Vital Signs (last 24 hours): Temp Pulse Resp BP Pulse Ox 99.0 F 79 27 H 111/51 L 100 06/13/17 08:00 06/13/17 08:00 06/13/17 08:00 06/13/17 08:00 06/13/17 08:00 Intake and Output: 06/13/17 06/13/17 06:59 18:59 Intake Total 1235 Output Total 300 Balance 935 - Medications Medications: Current Medications Acetaminophen (Tylenol 650 Mg Supp) 650 mg RC Q6H PRN PRN Reason: Fever >100.4 F Last Admin: 06/10/17 17:18 Dose: 650 mg Acetaminophen (Tylenol 325mg Tab) 650 mg PO Q6H PRN PRN Reason: Headache Last Admin: 06/13/17 10:42 Dose: 650 mg Albuterol/Ipratropium (Duoneb 3 Mg/0.5 Mg (3 Ml) Ud) 3 ml IH [id number] [facility] Last Admin: 06/13/17 07:50 Dose: 3 ml Budesonide (Pulmicort Respules) 0.5 mg IH [id number] [facility] Last Admin: 06/13/17 07:50 Dose: 0.5 mg Heparin Sodium (Porcine) (Heparin) 5,000 units SC Q12 [facility] PRN Reason: Protocol Last Admin: 06/13/17 10:39 Dose: 5,000 units Ceftriaxone Sodium (Rocephin 1 Gram Ivpb) 1 gm in 100 mls @ 100 mls/hr IVPB DAILY [facility] PRN Reason: Protocol Stop: 06/15/17 10:59 Last Admin: 06/13/17 10:39 Dose: 100 mls/hr Dextrose/Sodium Chloride (Dextrose 5%/0.45% Ns 1000 Ml) 1,000 mls @ 75 mls/hr IV .[id number] [facility] Last Admin: 06/13/17 10:41 Dose: 75 mls/hr Propofol (Diprivan) 1,000 mg in 100 mls @ 1.296 mls/hr IV .Q24H PRN; Protocol; 5 MCG/KG/MIN PRN Reason: TITRATE PER MD ORDER Last Titration: 06/11/17 07:04 Dose: 19.28 mcg/kg/min, 5 mls/hr Azithromycin (Zithromax 500mg In Ns) 500 mg in 250 mls @ 250 mls/hr IVPB Q24H [facility] PRN Reason: Protocol Last Admin: 06/13/17 08:01 Dose: 250 mls/hr Norepinephrine Bitartrate 4 mg (/ Sodium Chloride) 254 mls @ 15.24 mls/hr IV .[id number] PRN; Protocol; 4 MCG/MIN PRN Reason: Systolic Blood Pressure Last Titration: 06/11/17 22:00 Dose: 2 mcg/min, 7.62 mls/hr Methylprednisolone (Solu-Medrol) 20 mg IVP Q12 [facility] Ondansetron HCl (Zofran Inj) 4 mg IVP Q6H PRN PRN Reason: Nausea/Vomiting Last Admin: 06/13/17 07:59 Dose: 4 mg Pantoprazole Sodium (Protonix Inj) 40 mg IVP DAILY [facility] Last Admin: 06/13/17 10:40 Dose: 40 mg - Labs Labs: 06/13/17 08:45 06/13/17 08:45 PT 13.9 SECONDS (9.4-12.5) H 06/13/17 08:45 INR 1.20 (0.93-1.08) H 06/13/17 08:45 APTT 28.9 Seconds (25.1-36.5) 06/10/17 06:00 - Constitutional Appears: Non-toxic, No Acute Distress, Older Than Stated Age, Cachectic, Chronically Ill - Head Exam Head Exam: NORMAL INSPECTION - Eye Exam Eye Exam: Normal appearance - ENT Exam ENT Exam: Mucous Membranes Moist - Respiratory Exam Respiratory Exam: Clear to Ausculation Bilateral, NORMAL BREATHING PATTERN - Cardiovascular Exam Cardiovascular Exam: REGULAR RHYTHM, +S1, +S2 - GI/Abdominal Exam GI & Abdominal Exam: Soft, Normal Bowel Sounds - Extremities Exam Extremities Exam: Normal Inspection - Neurological Exam Neurological Exam: Alert, Awake, Oriented x3 Assessment and Plan - Assessment and Plan (Free Text) Assessment: Patient is 66 year old female with PMH COPD, CHF with EF 15%, cardiomyopathy, alcohol abuse, DM, Hodgkin's lymphoma, ITP, depression, admitted to ICU for hypercapenic, hypoxic respiratory acidosis 2/2 opiate overdose, COPD exacerbation, s/p extubation. Currently afebrile, HD stable, OFF levophed/milrinone drip, with adequate MAP, UOP. Awake, alert, in NAD, tolerating PO diet. Doing well Hypoxic resp faiure, s/p extubation COPD CHF, systolic Anemia EtOH abuse Recommend: - supp o2 as needed, BIPAP as needed - Duonebs PRN - Solumedrol IV, 20mg Q12hr - Cont with Rocephin, Azithro - follow up cultures, Procal - DC milrinone as per cardio - monitor HH - Lasix IV 40mg BID - FS control - replete K - Ativan PRN, MVT, thiamine, Folic Acid - GI ppx - DVT ppx - stable, transfer to telemetry
[2017-06-13] MEDS ORDERED: Morphine 4 mg/ml ISec IVP ONE (13:08)
--- NOTE | 2017-06-13 13:14 | PN ---
DATE: 06/13/2017 CARDIOLOGY FOLLOWUP SUBJECTIVE: The patient is awake, alert, complaining of malaise and body aches. PHYSICAL EXAMINATION VITAL SIGNS: Blood pressure is 85 systolic. NECK: Negative JVD. LUNGS: Decreased breath sounds. HEART: Reveals S1, S2. EXTREMITIES: Without edema. LABORATORY DATA: Hemoglobin is 9.1. Chemistries: BUN and creatinine unremarkable. Potassium is 2.9, glucose 129. IMPRESSION: 1. Status post respiratory failure, status post opiate ingestion. 2. End-stage dilated cardiomyopathy. 3. History of alcoholism. 4. Chronic obstructive pulmonary disease. 5. Coronary artery disease. PLAN: Given these findings, we will continue to taper off the milrinone to off. We will monitor the blood pressure. If the pressure goes below 85 systolic, will reinstate the milrinone. Prognosis is poor. Michael Schulte MD
[2017-06-13] MEDS: Meropenem IV 1 gm in NS 50 ML IVPB SCH ×2 (14:13→21:54)
--- NOTE | 2017-06-13 14:51 | CP.PCM.CON ---
History of Present Illness - History of Present Illness History of Present Illness: 66 year old female with PMH of CHF with alcoholic cardiomyopathy, DM, COPD, Hodgkin lymphoma, ITP, history of alcohol abuse was recently admitted in [facility] for Influenza A infection and Klebsiella UTI. She also had previously been in the hospital for respiratory failure which was ventilator dependent. She is now brought to [facility] again for altered mental status as per the , who found her confused and lethargic, especially after taking Morphine and Xanax together. She is now more awake and alert. Work up has found possible right lower lobe infiltrates and is currently being treated for pneumonia with antibiotics. Sputum cx were done which show ESBL Klebsiella. She still has cough , breathing is better, still with some chest pain on occasion, no nausea or vomiting, no abdominal pain, no headache, no rhinorrhea, no diarrhea, no dysuria. Infectious Diseases consult is requested to further evaluate and manage. Review of Systems - Review of Systems All systems: reviewed and no additional remarkable complaints except (as per HPI ) Past Patient History - Infectious Disease Hx of Infectious Diseases: None - Tetanus Immunizations Tetanus Immunization: Up to Date, Unknown - Past Medical History & Family History Past Medical History?: Yes - Past Social History Smoking Status: Smoker Currrent Status Unknown - CARDIAC Hx Cardiac Disorders: Yes Hx Cardia Arrhythmia: Yes Hx Congestive Heart Failure: Yes Other/Comment: Alcoholic cardiomyopathy - PULMONARY Hx Chronic Obstructive Pulmonary Disease (COPD): Yes Hx Pneumonia: Yes Hx Respiratory Tract Infection: Yes Other/Comment: Influenza A - NEUROLOGICAL Hx Neurological Disorder: Yes (syncope ams) Hx Dizziness: Yes - HEENT Hx HEENT Problems: Yes (eyeglasses) Other/Comment: developes ulcers left eye on eye drops - RENAL Hx Chronic Kidney Disease: No - ENDOCRINE/METABOLIC Hx Diabetes Mellitus Type 2: Yes - HEMATOLOGICAL/ONCOLOGICAL Hx Blood Disorders: Yes Hx Anemia: Yes - INTEGUMENTARY Other/Comment: Pressure wound - MUSCULOSKELETAL/RHEUMATOLOGICAL Hx Back Pain: Yes Hx Falls: Yes Hx Fractures: Yes - GASTROINTESTINAL Hx Gastrointestinal Disorders: Yes (weight loss appetite changes) - GENITOURINARY/GYNECOLOGICAL Hx Urinary Tract Infection: Yes - PSYCHIATRIC Hx Bipolar Disorder: Yes Hx Substance Use: No - SURGICAL HISTORY Hx Mastectomy: No - ANESTHESIA Hx Anesthesia: Yes Hx Anesthesia Reactions: Yes (SEE ALLERGIES) Hx Malignant Hyperthermia: No Meds Allergies/Adverse Reactions: Allergies Allergy/AdvReac Type Severity Reaction Status Date / Time diphenhydramine HCl Allergy SHORTNESS Verified 05/23/17 14:14 [From Benadryl] OF BREATH aspirin AdvReac SHORTNESS Verified 05/23/17 14:14 OF BREATH anesthesia Allergy Intermediate RASH Uncoded 05/23/17 14:14 anesthetic agents Allergy Mild ANAPHYLAXIS Uncoded 05/23/17 14:14 - Medications Medications: Current Medications Acetaminophen (Tylenol 650 Mg Supp) 650 mg RC Q6H PRN PRN Reason: Fever >100.4 F Last Admin: 06/10/17 17:18 Dose: 650 mg Acetaminophen (Tylenol 325mg Tab) 650 mg PO Q6H PRN PRN Reason: Headache Last Admin: 06/13/17 10:42 Dose: 650 mg Albuterol/Ipratropium (Duoneb 3 Mg/0.5 Mg (3 Ml) Ud) 3 ml IH [id number] [facility] Last Admin: 06/13/17 13:33 Dose: 3 ml Budesonide (Pulmicort Respules) 0.5 mg IH [id number] [facility] Last Admin: 06/13/17 07:50 Dose: 0.5 mg Heparin Sodium (Porcine) (Heparin) 5,000 units SC Q12 [facility]LE[facility] PRN Reason: Protocol Last Admin: 06/13/17 14:08 Dose: Not Given Dextrose/Sodium Chloride (Dextrose 5%/0.45% Ns 1000 Ml) 1,000 mls @ 75 mls/hr IV .[id number] [facility] Last Admin: 06/13/17 10:41 Dose: 75 mls/hr Propofol (Diprivan) 1,000 mg in 100 mls @ 1.296 mls/hr IV .Q24H PRN; Protocol; 5 MCG/KG/MIN PRN Reason: TITRATE PER MD ORDER Last Titration: 06/11/17 07:04 Dose: 19.28 mcg/kg/min, 5 mls/hr Azithromycin (Zithromax 500mg In Ns) 500 mg in 250 mls @ 250 mls/hr IVPB Q24H [facility] PRN Reason: Protocol Last Admin: 06/13/17 08:01 Dose: 250 mls/hr Norepinephrine Bitartrate 4 mg (/ Sodium Chloride) 254 mls @ 15.24 mls/hr IV .[id number] PRN; Protocol; 4 MCG/MIN PRN Reason: Systolic Blood Pressure Last Titration: 06/11/17 22:00 Dose: 2 mcg/min, 7.62 mls/hr Meropenem (Merrem Iv 1 Gm Premix) 50 mls @ 100 mls/hr IVPB Q8 [facility] PRN Reason: Protocol Last Admin: 06/13/17 14:13 Dose: 100 mls/hr Methylprednisolone (Solu-Medrol) 20 mg IVP Q12 [facility]LE[facility] Ondansetron HCl (Zofran Inj) 4 mg IVP Q6H PRN PRN Reason: Nausea/Vomiting Last Admin: 06/13/17 07:59 Dose: 4 mg Pantoprazole Sodium (Protonix Inj) 40 mg IVP DAILY [facility] Last Admin: 06/13/17 10:40 Dose: 40 mg Physical Exam - Constitutional Appears: Chronically Ill - Head Exam Head Exam: NORMAL INSPECTION - ENT Exam ENT Exam: Mucous Membranes Moist - Neck Exam Neck exam: Negative for: Meningismus - Respiratory Exam Respiratory Exam: Decreased Breath Sounds - Cardiovascular Exam Cardiovascular Exam: +S1, +S2 - GI/Abdominal Exam GI & Abdominal Exam: Soft. absent: Tenderness - Extremities Exam Additional comments: displaced right upper arm fracture, closed, no erythema or swelling noted Results - Vital Signs Recent Vital Signs: Last Vital Signs Temp 99.1 F 06/13/17 14:00 Pulse 75 06/13/17 14:00 Resp 17 06/13/17 14:00 BP 109/35 L 06/13/17 14:00 Pulse Ox 98 06/13/17 14:00 - Labs Result Diagrams: 06/13/17 08:45 06/13/17 08:45 Labs: Laboratory Results - last 24 hr 06/10/17 06/12/17 06/13/17 08:45 12:39 00:32 WBC RBC Hgb Hct MCV MCH MCHC RDW Plt Count MPV Gran % Lymph % (Auto) Barry % (Auto) Eos % (Auto) Baso % (Auto) Gran # Lymph # (Auto) Barry # (Auto) Eos # (Auto) Baso # (Auto) PT INR Sodium Potassium Chloride Carbon Dioxide Anion Gap BUN Creatinine Est GFR ( Amer) Est GFR (Non-Af Amer) POC Glucose (mg/dL) 123 H 139 H Random Glucose Calcium Total Bilirubin AST ALT Alkaline Phosphatase Total Protein Albumin Globulin Albumin/Globulin Ratio Crossmatch See Detail 06/13/17 06/13/17 06/13/17 08:04 08:45 08:45 WBC 7.9 D RBC 2.78 L Hgb 8.7 L Hct 26.6 L MCV 95.7 MCH 31.3 MCHC 32.7 RDW 19.1 H Plt Count 159 MPV 9.5 Gran % 95.2 H Lymph % (Auto) 2.0 L Barry % (Auto) 2.8 Eos % (Auto) 0.0 L Baso % (Auto) 0.0 Gran # 7.55 H Lymph # (Auto) 0.2 L Barry # (Auto) 0.2 Eos # (Auto) 0.0 Baso # (Auto) 0.00 PT 13.9 H INR 1.20 H Sodium Potassium Chloride Carbon Dioxide Anion Gap BUN Creatinine Est GFR ( Amer) Est GFR (Non-Af Amer) POC Glucose (mg/dL) 117 H Random Glucose Calcium Total Bilirubin AST ALT Alkaline Phosphatase Total Protein Albumin Globulin Albumin/Globulin Ratio Crossmatch 06/13/17 06/13/17 08:45 11:19 WBC RBC Hgb Hct MCV MCH MCHC RDW Plt Count MPV Gran % Lymph % (Auto) Barry % (Auto) Eos % (Auto) Baso % (Auto) Gran # Lymph # (Auto) Barry # (Auto) Eos # (Auto) Baso # (Auto) PT INR Sodium 146 Potassium 4.0 Chloride 117 H Carbon Dioxide 18 L Anion Gap 15 BUN 14 Creatinine 0.6 L Est GFR ( Amer) > 60 Est GFR (Non-Af Amer) > 60 POC Glucose (mg/dL) 134 H Random Glucose 117 H Calcium 9.1 Total Bilirubin 0.2 AST 16 ALT 22 Alkaline Phosphatase 81 Total Protein 4.9 L Albumin 2.4 L Globulin 2.5 Albumin/Globulin Ratio 1.0 L Crossmatch Assessment & Plan - Assessment and Plan (Free Text) Plan: Assessment Sepsis right lower lobe HCAP with ESBL Klebsiella history of Influenza A infection history of Klebsiella UTI right humeral closed fracture history of VDRF from poor responsiveness, on top of probable severe sepsis from HCAP, bilateral CHF with alcoholic cardiomyopathy DM COPD Hodgkin lymphoma ITP history of alcohol abuse Plan changed antibiotics to Merrem and will continue Zithromax and will monitor clinically - complete 4-7 days of therapy
[2017-06-14] MEDS: Albuterol-Ipratrop 3 mg / 0.5 (3 ml) UD IH SCH ×4 (01:10→17:31)
--- NOTE | 2017-06-14 03:32 | PN ---
DATE: DAILY PROGRESS NOTE I would like today's progress note to be read as follows, if you would be so kind. SUBJECTIVE: The patient is a 66-year-old female who was brought to be emergency room with mental status changes and difficulty breathing. In the emergency room, she received Narcan x3 with some improvement. She still had difficulty breathing, however, and was intubated and admitted to the Intensive Care Unit. The Primacor had been decreased since her admission on the 06/10. Patient has now been extubated. When seen today in the Intensive Care Unit, she is awake, alert, and oriented. She is asking for pain management and nausea medicine. The patient is known to have a past medical history positive for alcoholic cardiomyopathy with an ejection fraction of 15% over many years. She had been hospitalized for congestive heart failure status post myocardial infarction and chronically fractured right humerus. She has also had a history of alcoholic bone marrow suppression. There is a possibility that the patient accidentally overdosed on some morphine tablets in an effort to relieve some pain prior to this hospitalization. I explained to the patient that the possibility that she was admitted with an overdose of morphine and therefore, I was not going to prescribe any morphine for her. She does have Tylenol and Zofran on p.r.n. basis. The patient's heart is regular. Her lungs are clear anteriorly. It seems that the patient has now recovered. Her mental status is back to baseline and will probably be transferred out of the Intensive Care Unit shortly. We are continuing to follow the patient closely. Baljeet King MD
[2017-06-14] MEDS: MethylPREDNISolone 40 mg Vial IVP SCH ×3 (04:09→22:25)
[2017-06-14] MEDS: Meropenem IV 1 gm in NS 50 ML IVPB SCH ×3 (05:52→22:25)
[2017-06-14] MEDS: Budesonide 0.5 mg/2 ml Inhal Susp UD IH SCH (07:31)
--- NOTE | 2017-06-14 08:14 | RAD ---
HISTORY: f/u COMPARISON: 06/13/2017 FINDINGS: LUNGS: There is a persistent patchy interstitial infiltrate in the right lung. There is no significant change. The left lung remains clear PLEURA: No significant pleural effusion identified, no pneumothorax apparent. CARDIOVASCULAR: Mild cardiomegaly OSSEOUS STRUCTURES: No significant abnormalities. VISUALIZED UPPER ABDOMEN: Normal. OTHER FINDINGS: None. IMPRESSION: There is a persistent patchy interstitial infiltrate in the right lung. There is no significant change. The left lung remains clear
[2017-06-14] MEDS: Dextrose 5%/0.45% NS 1,000 ML IV SCH ×2 (08:19→19:45)
--- NOTE | 2017-06-14 08:43 | PN ---
DATE: 06/14/2017(620am-710am) PULMONARY NOTE SUBJECTIVE: The patient remains in the ICU. She remains extubated. She is not short of breath at rest. She does appear very weak. PHYSICAL EXAMINATION: VITAL SIGNS: Temperature is 97.8, pulse is 86, respiratory rate 18/20, blood pressure 97/54. Oxygen saturation on nasal cannula is 100%. HEENT: Normocephalic, atraumatic. NECK: No JVD. CARDIOVASCULAR: Positive S1, S2. Positive S3 gallop. LUNGS: Crackles at both bases. Mild bilateral rhonchi. No wheezing. EXTREMITIES: Mild edema. No cyanosis, no clubbing. Calves are nontender to palpation. GI: Abdomen is soft, nontender, nondistended. Bowel sounds are positive. SKIN: No acute rash. NEUROLOGIC: Exam limited at the present time. PERTINENT LABORATORY DATA: Chest x-ray was done this morning and reviewed. The film is a better film compared to yesterday. There is a persistent right lung interstitial infiltrate. Arterial blood gas was ordered-pending. IMPRESSION: 1. Recurrent respiratory failure. 2. Recurrent congestive heart failure. 3. Advanced alcoholic cardiomyopathy. 4. Advanced chronic obstructive pulmonary disease. 5. Rule out pneumonia-right lower lobe. 6. Coronary artery disease. 7. Anemia. PLAN: The patient remains extubated. She is not short of breath at rest. She does state to feeling better overall. She does appear very weak. I did review the chest x-ray as above. The chest x-ray is a better film-compared to yesterday's film. There remains a right-sided interstitial infiltrate. I would continue with the antibiotic coverage-as per Infectious Disease. Input by Dr. Ray is noted. The temperatures are resolving. The leukocytosis has resolved. On physical exam, there is certainly less bronchospasm noted. In addition, the oxygen saturation on nasal cannula is now 100%. I will continue with the current nebulizer treatments and low-dose intravenous steroids (decreased yesterday) for now. The clinical status of the patient is significantly improved-compared to her initial presentation. However, again, unfortunately, the future status/prognosis for this patient remains poor. All are aware. I will discuss the above with the entire ICU team in the next few moments. I will also discuss the above with the attending physician. Adam Parker MD [facility] # [id number] [place]
[2017-06-14] MEDS: Azithromycin 500MG/NS 250ml 500 MG/250 ML BAG IVPB SCH (08:56)
[2017-06-14] MEDS: Morphine 15 mg Immediate Release Tab PO SCH ×2 (13:50→23:37)
--- NOTE | 2017-06-14 15:40 | PN ---
DATE: 06/14/2017 SUBJECTIVE: The patient is in bed, in no acute distress, was seen early this morning. She states she still has some shortness of breath and some pleuritic chest pain. No fevers and chills. No abdominal pain or diarrhea. PHYSICAL EXAMINATION: VITAL SIGNS: Temperature is 97, blood pressure is 97/54, respiratory rate of 25 and heart rate of 97. HEENT: Unremarkable. NECK: Supple. LUNGS: Have decreased breath sounds. HEART: Normal S1 and S2. ABDOMEN: Soft, nontender. No rebound. No guarding. No masses. LABORATORY EXAMINATION: Reveals the patient's white count is 7.9, hemoglobin of 8, platelets of 159. Chemistries are noted with BUN of 14 and creatinine of 0.6. Urinalysis is noted. Toxicology is reviewed. Microbiology reveals the trach collar is positive for Klebsiella species. The sensitivity is ESBL Klebsiella. MEDICATIONS: The patient is currently on meropenem. ASSESSMENT AND PLAN: This is a 66-year-old female with alcoholic cardiomyopathy, diabetes mellitus, chronic obstructive lung disease, Hodgkin's lymphoma, idiopathic thrombocytopenic purpura, and history of alcohol abuse, who was admitted recently with influenza A and Klebsiella urinary tract infection. Now, the patient is seen earlier this morning in the intensive care unit with sepsis and with right lower lobe healthcare-associated pneumonia with extended-spectrum beta-lactamase Klebsiella, currently on meropenem. She would complete 4-7 days of meropenem and the patient's clinical response may be perhaps longer. The patient is also on azithromycin. We will change that to p.o. We will follow with you. Daniel Byrd MD
--- NOTE | 2017-06-14 20:59 | CON ---
DATE: HISTORY OF PRESENT ILLNESS: In short, the patient is a 66-year-old female with long medical history including CHF with alcoholic cardiomyopathy, diabetes, COPD, Hodgkin lymphoma, history of alcohol abuse. The patient was admitted on the medical site for altered mental status, status post unintentional overdose on pain killers and benzodiazepines. Psych consult was called for evaluation of anxiety symptoms and the patient's altered mental status. The patient is very familiar to this administrative underwriter from the previous admission on the medical site. Last consultation services was done for this patient in 2015. The patient was seen today in the ICU. The patient appears to be irritable and anxious. The patient said that Paxil is the only medication which she is feeling comfortable to take now and as per medical note, the patient was started on Paxil 20 mg daily, but this administrative underwriter would make correction that Paxil needs to be given at the nighttime and not more than 5 mg at the nighttime. The patient said that she also takes Xanax and this administrative underwriter agrees with that medication, but it has to be given 0.5 mg as needed as well as 0.5 mg three times a day scheduled. The patient reported that she was not using any drugs or and alcohol, last drink was about 2 to 3 months ago, but this is questionable. Going back to the patient's presentation, the patient said that she was feeling very depressed, feeling of hopeless. The patient denied that she wanted to kill herself. She wanted to get better. The patient reported that she was in pain that is why she took extra pill of morphine. The patient is happy to be alive. The patient said that she wants to get better. She wants to be less anxious. She wants to be less depressed. Paxil is 5 mg at the nighttime and Xanax 0.5 mg three times a day as scheduled. Collateral from the nursing staff, the patient is very anxious, but not psychotic and not agitated. VITAL SIGNS: Stable. Temperature is 97.6, blood pressure is 97/54, oxygen saturation 95. MEDICATIONS: Reviewed. The patient is on Tylenol, DuoNeb, Xanax 0.5 mg every 6 hours as needed as well as Xanax 0.5 mg three times a day scheduled, Pulmicort, gabapentin, heparin, Imodium, meropenem, Solu-Medrol, morphine sulfate, Zofran, Protonix, Paxil will be given 5 mg at the nighttime, and propofol. As per previous history, the patient was followed up with Dr. Chago Orozco, but the patient does not want to follow up with him any longer. MENTAL STATUS EXAMINATION: The patient appears to be alert, mildly anxious. Intermittent eye contact. Speech was monotonic, low volume. Mood described "I'm depressed." Affect was constricted and anxious. Thought process, goal directed and coherent. Thought content, the patient denied visual, auditory, or tactile hallucinations. Denied paranoid ideation. The patient denied thoughts of harming herself or others. Denied intent or plan. Insight and judgment seem to be improving. Impulses are well controlled. IMPRESSION: Rule out major depressive disorder, rule out generalized anxiety disorder, rule out mood disorder, anxiety disorder due to general medical condition. In addition, the patient also had altered mental status and unintentional overdose on medications. PLAN: Continue current management. Continue current medications. Paxil was decreased to 5 mg at the nighttime. Xanax was increased to 0.25 mg three times a day scheduled. I would recommend multivitamins, thiamine, and folic acid. We will follow up and advise accordingly. The patient reported that she fills her medication on [facility], . We will call to confirm the medications. Meanwhile, management should be continued. Thank you very much for letting me participate in care of your patient. Leigh Ann Loco MD
--- NOTE | 2017-06-15 02:25 | PN ---
DATE: 06/14/2017 SUBJECTIVE: Patient was seen this morning in Intensive Care. She is awake, alert, clear, and voicing her needs. She claims she needs more pain medicines. She claims she needs more anxiolytics. She is pretty demanding and filled with complaints. She is refusing Psychiatry evaluation and wanting to take increasing doses of analgesics. I explained her near- experience from accidental overdose of medications she had at home, including benzodiazepines, (Xanax), and opiates, (morphine sulfate) tablets. Patient states that Percocet did not help her, tramadol does not work her and only intravenous pain medicines in the hospital and oral morphine seem to help. I tried to explain pain management principles, antiinflammatories, gabapentin and as such and met with a lot of resistance. Patient was medically and hemodynamically stable, ready to leave Intensive Care to [facility]-surg floor. I will adjust her dose of Xanax instead of 1 mg tablet she has at home. She with get 0.5 mg twice a day regularly scheduled plus additional 4 doses every 6 hours p.r.n., and some analgesics at a lower dose than she had at home, to be tapered slowly over the next few days. Physical therapy to see the patient, to try to get a brace for the right forearm. I will also ask a psychiatry consultation with Dr. Beltrán in spite of the patient's refusal, and hopefully they can guide me with the medications for her anxiety. In the interim, I will start her on Paxil and follow. Tripp King MD [place]
[2017-06-15] MEDS: Morphine 15 mg Immediate Release Tab PO SCH ×3 (05:09→13:58)
[2017-06-15] MEDS: Meropenem IV 1 gm in NS 50 ML IVPB SCH ×3 (05:19→21:12)
[2017-06-15 06:31] LABS: GRAN # 7.69 (1.4-6.5); GRAN % 85.3 % (50.0-68.0); HEMOGLOBIN 8.6 g/dL (12.0-16.0); LYMPH # 0.6 (1.2-3.4); LYMPH % 6.9 % (22.0-35.0); MEAN CELL VOLUME 96.7 fl (80.0-105.0); MEAN CORPUSCULAR HEMOGLOBIN 31.2 pg (25.0-35.0); MEAN CORPUSCULAR HGB CONC 32.2 g/dl (31.0-37.0); MEAN PLATELET VOLUME 9.1 fl (7.0-11.0); MONO # 0.7 (0.1-0.6); MONO % 7.8 % (1.0-6.0); RBC 2.76 10^6/uL (3.5-6.1); RED CELL DISTRIBUTION WIDTH 18.7 % (11.5-14.5)
--- NOTE | 2017-06-15 07:05 | CP.PCM.PN ---
Subjective - Date & Time of Evaluation Date of Evaluation: 06/15/17 Time of Evaluation: 07:04 - Subjective Subjective: Patient was seen at bedside. Has pain in lower abdomen. States that she is not able to pass urine. She begged to have Cota catheter inserted which had been discontinued earlier. She understands risk of infection. She still wants catheter inserted.States that "Belly is bursting." Bladder scan -188 cc. Medical record was reviewed. This 66 year old woman was admitted with altered mental status. Has PMH of anxiety, COPD, HTN, follicular lymphoma. Objective - Vital Signs/Intake and Output Vital Signs (last 24 hours): Temp Pulse Resp BP Pulse Ox 98.1 F 117 H 20 105/62 96 06/14/17 23:11 06/14/17 23:11 06/14/17 23:11 06/14/17 23:11 06/14/17 23:11 Intake and Output: 06/15/17 06/15/17 06:59 18:59 Intake Total 300 Output Total 240 Balance 60 - Medications Medications: Current Medications Acetaminophen (Tylenol 650 Mg Supp) 650 mg RC Q6H PRN PRN Reason: Fever >100.4 F Last Admin: 06/13/17 21:40 Dose: 650 mg Acetaminophen (Tylenol 325mg Tab) 650 mg PO Q6H PRN PRN Reason: Headache Last Admin: 06/14/17 23:42 Dose: 650 mg Albuterol/Ipratropium (Duoneb 3 Mg/0.5 Mg (3 Ml) Ud) 3 ml IH [id number] [facility] Last Admin: 06/14/17 17:31 Dose: 3 ml Alprazolam (Xanax) 0.5 mg PO Q6H PRN PRN Reason: Anxiety Stop: 06/21/17 11:38 Last Admin: 06/15/17 00:45 Dose: 0.5 mg Alprazolam (Xanax) 0.5 mg PO TID [facility] Stop: 06/21/17 18:01 Last Admin: 06/14/17 17:01 Dose: 0.5 mg Budesonide (Pulmicort Respules) 0.5 mg IH [id number] [facility] Last Admin: 06/14/17 07:31 Dose: Not Given Gabapentin (Neurontin) 300 mg PO BID [facility] PRN Reason: Protocol Last Admin: 06/14/17 17:01 Dose: 300 mg Heparin Sodium (Porcine) (Heparin) 5,000 units SC Q12 [facility] PRN Reason: Protocol Last Admin: 06/14/17 21:59 Dose: Not Given Dextrose/Sodium Chloride (Dextrose 5%/0.45% Ns 1000 Ml) 1,000 mls @ 75 mls/hr IV .[id number] [facility] Last Admin: 06/14/17 19:45 Dose: 75 mls/hr Meropenem (Merrem Iv 1 Gm Premix) 50 mls @ 100 mls/hr IVPB Q8 [facility] PRN Reason: Protocol Last Admin: 06/15/17 05:19 Dose: 100 mls/hr Loperamide HCl (Imodium) 2 mg PO QID PRN PRN Reason: Diarrhea Methylprednisolone (Solu-Medrol) 20 mg IVP Q12 [facility] Last Admin: 06/14/17 22:25 Dose: 20 mg Morphine Sulfate (Morphine Immediate Release Tab) 15 mg PO Q6H [facility] Last Admin: 06/15/17 05:09 Dose: Not Given Ondansetron HCl (Zofran Inj) 4 mg IVP Q6H PRN PRN Reason: Nausea/Vomiting Last Admin: 06/15/17 05:02 Dose: 4 mg Pantoprazole Sodium (Protonix Ec Tab) 40 mg PO ACB [facility] Paroxetine HCl (Paxil) 5 mg PO HS [facility] Last Admin: 06/14/17 23:37 Dose: 5 mg - Labs Labs: 06/13/17 08:45 06/13/17 08:45 PT 13.9 SECONDS (9.4-12.5) H 06/13/17 08:45 INR 1.20 (0.93-1.08) H 06/13/17 08:45 APTT 28.9 Seconds (25.1-36.5) 06/10/17 06:00 - Constitutional Appears: Well, No Acute Distress - Head Exam Head Exam: ATRAUMATIC, NORMAL INSPECTION, NORMOCEPHALIC - Eye Exam Eye Exam: Normal appearance - ENT Exam ENT Exam: Normal External Ear Exam - Neck Exam Neck Exam: Normal Inspection - Respiratory Exam Respiratory Exam: NORMAL BREATHING PATTERN - Cardiovascular Exam Cardiovascular Exam: absent: JVD - GI/Abdominal Exam GI & Abdominal Exam: absent: Distended - Rectal Exam Rectal Exam: Deferred - Exam Additional comments: deferred. - Extremities Exam Extremities Exam: Normal Inspection - Back Exam Back Exam: NORMAL INSPECTION - Neurological Exam Neurological Exam: Alert, Awake, Oriented x3 - Psychiatric Exam Psychiatric exam: Normal Affect, Normal Mood - Skin Skin Exam: Normal Color Assessment and Plan - Assessment and Plan (Free Text) Assessment: Urinary retention. COPD. Anxiety. HTN. History of follicular lymphoma. Plan: Reinsert Cota catheter. Continue plan as per PMD.
[2017-06-15 07:13] LABS: ALBUMIN 2.3 g/dL (3.0-4.8); ALT/SGPT 22 U/L (7-56); AST/SGOT 20 U/L (14-36); BLOOD UREA NITROGEN 15 mg/dL (7-21); CALCIUM 8.7 mg/dL (8.4-10.5); GFR AFRICAN-AMERICAN > 60; GFR NON-AFRICAN AMERICAN > 60
[2017-06-15] MEDS: Budesonide 0.5 mg/2 ml Inhal Susp UD IH SCH ×3 (07:29→19:32)
[2017-06-15] MEDS: Albuterol-Ipratrop 3 mg / 0.5 (3 ml) UD IH SCH ×3 (07:29→19:31)
[2017-06-15] MEDS: Pantoprazole 40 mg EC Tab PO SCH (08:21)
--- NOTE | 2017-06-15 09:21 | RAD ---
HISTORY: follow up COMPARISON: No prior. FINDINGS: LUNGS: Lower lobe infiltrates bilaterally. These are progressive. PLEURA: Increasing bilateral pleural effusions. CARDIOVASCULAR: Venous access catheters in stable, satisfactory position. OSSEOUS STRUCTURES: No significant abnormalities. VISUALIZED UPPER ABDOMEN: Normal. OTHER FINDINGS: None. IMPRESSION: Worsening infiltrates and pleural effusions.
--- NOTE | 2017-06-15 09:46 | PN ---
DATE: 06/15/2017 PULMONARY NOTE SUBJECTIVE: The patient appears comfortable this morning. She is not short of breath at rest. PHYSICAL EXAMINATION VITAL SIGNS: Last temperature recorded is 98.1, pulse this morning is approximately 88, respiratory rate 18/20, blood pressure 105/62. Oxygen saturation on nasal cannula is 96%. HEENT: Normocephalic, atraumatic. No JVD. CARDIOVASCULAR: Positive S1, S2. Positive S3 gallop. LUNGS: Less crackles at the bases. Less rhonchi. No wheezing. EXTREMITIES: Mild edema. No cyanosis, no clubbing. Calves are nontender to palpation. GI: Abdomen is soft, nontender and nondistended. Bowel sounds are positive. SKIN: No acute rash. NEUROLOGIC: Limited at the present time. IMPRESSION: 1. Recurrent respiratory failure. 2. Recurrent congestive heart failure. 3. Advanced alcoholic cardiomyopathy. 4. Advanced chronic obstructive pulmonary disease. 5. Rule out pneumonia - right lower lobe. 6. Coronary artery disease. 7. Anemia. PLAN: The patient appears comfortable this morning. She is not short of breath at rest. She does state to feeling much better overall. She remains very weak appearing. On physical exam, her bronchospasm is much less. In addition, the alveolar-arterial gradient is also much less. I will continue with the current nebulizer treatments and low-dose intravenous steroids for now. I would continue with the antibiotic coverage as per Infectious Disease. Input by Dr. Byrd is noted. The temperatures have resolved. The leukocytosis has also resolved. I did order a chest x-ray for this morning - for comparison. I will check that when feasible. The clinical status of the patient is significantly improved - compared to the initial presentation. However, again, unfortunately, the future status/prognosis for this patient does remain poor. All are aware. I will discuss the above with the attending physician. Adam Parker MD MTDJhon[place]
[2017-06-15] MEDS: MethylPREDNISolone 40 mg Vial IVP SCH ×2 (10:55→21:13)
--- NOTE | 2017-06-15 14:19 | CP.PCM.PN ---
Subjective - Date & Time of Evaluation Date of Evaluation: 06/15/17 Time of Evaluation: 12:00 - Subjective Subjective: Patient is feeling better, no fevers, cough is improving, able to sleep better, no nausea. Objective - Vital Signs/Intake and Output Vital Signs (last 24 hours): Temp Pulse Resp BP Pulse Ox 98.2 F 84 18 91/53 L 100 06/15/17 06:00 06/15/17 06:00 06/15/17 06:00 06/15/17 06:00 06/15/17 06:00 Intake and Output: 06/15/17 06/15/17 06:59 18:59 Intake Total 300 Output Total 240 Balance 60 - Medications Medications: Current Medications Acetaminophen (Tylenol 650 Mg Supp) 650 mg RC Q6H PRN PRN Reason: Fever >100.4 F Last Admin: 06/13/17 21:40 Dose: 650 mg Acetaminophen (Tylenol 325mg Tab) 650 mg PO Q6H PRN PRN Reason: Headache Last Admin: 06/14/17 23:42 Dose: 650 mg Albuterol/Ipratropium (Duoneb 3 Mg/0.5 Mg (3 Ml) Ud) 3 ml IH [id number] [facility] Last Admin: 06/15/17 07:29 Dose: 3 ml Alprazolam (Xanax) 0.5 mg PO Q6H PRN PRN Reason: Anxiety Stop: 06/21/17 11:38 Last Admin: 06/15/17 00:45 Dose: 0.5 mg Alprazolam (Xanax) 0.5 mg PO TID [facility] Stop: 06/21/17 18:01 Last Admin: 06/14/17 17:01 Dose: 0.5 mg Budesonide (Pulmicort Respules) 0.5 mg IH [id number] [facility] Last Admin: 06/15/17 07:29 Dose: 0.5 mg Gabapentin (Neurontin) 300 mg PO BID [facility] PRN Reason: Protocol Last Admin: 06/14/17 17:01 Dose: 300 mg Heparin Sodium (Porcine) (Heparin) 5,000 units SC Q12 [facility] PRN Reason: Protocol Last Admin: 06/14/17 21:59 Dose: Not Given Dextrose/Sodium Chloride (Dextrose 5%/0.45% Ns 1000 Ml) 1,000 mls @ 75 mls/hr IV .[id number] [facility] Last Admin: 06/14/17 19:45 Dose: 75 mls/hr Meropenem (Merrem Iv 1 Gm Premix) 50 mls @ 100 mls/hr IVPB Q8 [facility] PRN Reason: Protocol Last Admin: 06/15/17 05:19 Dose: 100 mls/hr Loperamide HCl (Imodium) 2 mg PO QID PRN PRN Reason: Diarrhea Methylprednisolone (Solu-Medrol) 20 mg IVP Q12 [facility] Last Admin: 06/14/17 22:25 Dose: 20 mg Morphine Sulfate (Morphine Immediate Release Tab) 15 mg PO Q6H [facility] Last Admin: 06/15/17 08:21 Dose: 15 mg Ondansetron HCl (Zofran Inj) 4 mg IVP Q6H PRN PRN Reason: Nausea/Vomiting Last Admin: 06/15/17 05:02 Dose: 4 mg Pantoprazole Sodium (Protonix Ec Tab) 40 mg PO ACB [facility] Last Admin: 06/15/17 08:21 Dose: 40 mg Paroxetine HCl (Paxil) 5 mg PO HS [facility] Last Admin: 06/14/17 23:37 Dose: 5 mg - Labs Labs: 06/15/17 05:40 06/15/17 05:40 PT 13.9 SECONDS (9.4-12.5) H 06/13/17 08:45 INR 1.20 (0.93-1.08) H 06/13/17 08:45 APTT 28.9 Seconds (25.1-36.5) 06/10/17 06:00 - Constitutional Appears: Chronically Ill - Head Exam Head Exam: NORMAL INSPECTION - ENT Exam ENT Exam: Mucous Membranes Moist - Neck Exam Neck Exam: absent: Meningismus - Respiratory Exam Respiratory Exam: Decreased Breath Sounds - Cardiovascular Exam Cardiovascular Exam: +S1, +S2 - GI/Abdominal Exam GI & Abdominal Exam: Soft. absent: Tenderness Assessment and Plan - Assessment and Plan (Free Text) Plan: Assessment Sepsis right lower lobe HCAP with ESBL Klebsiella, slowly improving history of Influenza A infection history of Klebsiella UTI right humeral closed fracture history of VDRF from poor responsiveness, on top of probable severe sepsis from HCAP, bilateral CHF with alcoholic cardiomyopathy DM COPD Hodgkin lymphoma ITP history of alcohol abuse Plan continue Merrem and Zithromax day 3 and will monitor clinically - complete 4-7 days of therapy
--- NOTE | 2017-06-15 15:44 | PN ---
DATE: 06/15/2017 CARDIOLOGY FOLLOWUP SUBJECTIVE: The patient is feeling well today. Her appetite is good. She had a good night's sleep. PHYSICAL EXAMINATION: VITAL SIGNS: Blood pressure varies from 91-105, heart rates in the 80s. NECK: Negative JVD. LUNGS: Without rales. HEART: Reveals S1, S2. EXTREMITIES: Without edema. LABORATORY DATA: Hemoglobin is 8.6. Chemistries: BUN and creatinine unremarkable. IMPRESSION: 1. Status post opiate intake. 2. End-stage dilated cardiomyopathy. 3. Chronic obstructive pulmonary disease. 4. Coronary artery disease. 5. History of alcoholism. PLAN: Given these findings, the patient is at her best in a long time. The patient remains hemodynamically stable. Michael Schulte MD
--- NOTE | 2017-06-15 15:56 | PN ---
DATE: 06/15/2017 SUBJECTIVE: The patient is a 66-year-old female, long history of CHF and alcoholic cardiomyopathy, diabetes, COPD, Hodgkin's lymphoma, history of alcohol use disorder. The patient was admitted on the medical site ICU for altered mental status. Psychiatric consult was involved because the patient has history of mental illness, alcohol use disorder and anxiety. The patient was initially seen yesterday in the ICU. Today, this speech writer is following up. Yesterday, this speech writer started Paxil 5 mg at the nighttime for depression, anxiety and insomnia; Xanax 3 times a day scheduled for anxiety. The patient was seen today on the medical site. The patient physically devries, doing much better; mentally devries as well the patient is doing much better. The patient was less irritable, pleasant. The patient was smiling back to this speech writer. The patient reported that she feels much better and she had a good night sleep. The patient reported that she wants to continue all of the medications, was very appreciative for this speech writer. Collaterals obtained from the patient's . The patient gave permission to talk to him. The patient's is next to the patient. Nickolas, power of county attorney and he is significant other, 's boyfriend. As per Nickolas, the patient presents much better. The patient does not have any irritability or angry outburst. The patient 's reported that the patient presented much better, was appreciative and requested the same medication to be continued. PHYSICAL EXAMINATION: VITAL SIGNS: Seems to be stable. Temperature 98.2, pulse is 84, blood pressure 91/53, respiration 18, oxygen saturation is 100. MEDICATIONS: Reviewed. Tylenol, DuoNeb, Xanax 0.5 mg every 6 hours as needed and 0.5 mg scheduled, Pulmicort, dextrose, gabapentin 300 mg twice a day, heparin, Imodium 2 mg four times a day as needed, meropenem, Solu-Medrol, morphine, Zofran, Protonix, Paxil 5 mg at the nighttime. LABORATORY DATA: Labs reviewed. Hemoglobin and hematocrit 8.6 and 26.7. Coagulation reviewed. Chemistry reviewed. Urinalysis reviewed. Toxicology positive for opioids and benzodiazepines. MENTAL STATUS EXAM: The patient presented to be alert, oriented, pleasant, cooperative. Good eye contact. Speech was monotonic and low volume. Mood described "I feel better." Affect was constricted, but more reactive to compare to yesterday. The patient was not irritable. Thought process coherent and goal directed. Thought content, the patient denied visual, auditory, tactile hallucinations. Denied paranoid ideation. The patient denied thoughts of harming herself or others. Insight and judgment improving. Impulses are well controlled. IMPRESSION: Rule out mood disorder and anxiety disorder due to general medical condition, history of alcohol use disorder, rule out generalized anxiety disorder, rule out major depressive disorder. PLAN: Continue current management. Continue current medication. Xanax 3 times a day schedule 0.5 mg for anxiety as well as Paxil 5 mg at nighttime. The patient is doing better from the psychiatric standpoint. Dr. Jeffers will follow up on this patient over the weekend. Thank you very much for letting me to participate in care of your patient. Leigh Ann Loco MD
[2017-06-15] MEDS: Morphine 15 mg Immediate Release Tab PO PRN (16:33)
[2017-06-16] MEDS: Albuterol-Ipratrop 3 mg / 0.5 (3 ml) UD IH SCH ×4 (01:16→21:45)
[2017-06-16] MEDS: Morphine 15 mg Immediate Release Tab PO PRN ×3 (02:46→15:32)
[2017-06-16] MEDS: Meropenem IV 1 gm in NS 50 ML IVPB SCH ×3 (06:11→21:09)
[2017-06-16 06:54] LABS: HEMOGLOBIN 8.9 g/dL (12.0-16.0); MEAN CELL VOLUME 97.2 fl (80.0-105.0); MEAN CORPUSCULAR HEMOGLOBIN 31.1 pg (25.0-35.0); MEAN PLATELET VOLUME 9.3 fl (7.0-11.0); RBC 2.86 10^6/uL (3.5-6.1); RED CELL DISTRIBUTION WIDTH 18.2 % (11.5-14.5); WHITE BLOOD COUNT 8.3 10^3/ul (4.5-11.0)
[2017-06-16 07:11] LABS: BLOOD UREA NITROGEN 15 mg/dL (7-21); CALCIUM 8.6 mg/dL (8.4-10.5); GFR AFRICAN-AMERICAN > 60; GFR NON-AFRICAN AMERICAN > 60
[2017-06-16 07:42] LABS: B-TYPE NATRIURETIC PEPTIDE 77100 pg/mL (0-450)
[2017-06-16] MEDS: Pantoprazole 40 mg EC Tab PO SCH (08:40)
[2017-06-16] MEDS: Budesonide 0.5 mg/2 ml Inhal Susp UD IH SCH ×2 (08:50→21:45)
--- NOTE | 2017-06-16 09:27 | RAD ---
HISTORY: follow up COMPARISON: Yesterday FINDINGS: LUNGS: No interval change. PLEURA: Stable. CARDIOVASCULAR: Slight increase in vascular congestion is not excluded. OSSEOUS STRUCTURES: No significant abnormalities. VISUALIZED UPPER ABDOMEN: Normal. OTHER FINDINGS: None. IMPRESSION: Slight increase in vascular congestion is not excluded.
[2017-06-16] MEDS: MethylPREDNISolone 40 mg Vial IVP SCH ×2 (09:35→21:10)
--- NOTE | 2017-06-16 13:30 | CP.PCM.PN ---
Subjective - Date & Time of Evaluation Date of Evaluation: 06/16/17 Time of Evaluation: 12:10 - Subjective Subjective: Patient is feeling better, more appetite, no fevers, slowly having more energy. Objective - Vital Signs/Intake and Output Vital Signs (last 24 hours): Temp Pulse Resp BP Pulse Ox 97.3 F L 101 H 18 99/49 L 96 06/15/17 22:00 06/15/17 22:00 06/15/17 22:00 06/15/17 22:00 06/15/17 22:00 Intake and Output: 06/16/17 06/16/17 06:59 18:59 Intake Total 1050 Output Total 625 Balance 425 - Medications Medications: Current Medications Acetaminophen (Tylenol 650 Mg Supp) 650 mg RC Q6H PRN PRN Reason: Fever >100.4 F Last Admin: 06/13/17 21:40 Dose: 650 mg Acetaminophen (Tylenol 325mg Tab) 650 mg PO Q6H PRN PRN Reason: Headache Last Admin: 06/14/17 23:42 Dose: 650 mg Albuterol/Ipratropium (Duoneb 3 Mg/0.5 Mg (3 Ml) Ud) 3 ml IH [id number] [facility] Last Admin: 06/16/17 01:16 Dose: Not Given Alprazolam (Xanax) 0.5 mg PO Q6H PRN PRN Reason: Anxiety Stop: 06/21/17 11:38 Last Admin: 06/15/17 23:52 Dose: 0.5 mg Budesonide (Pulmicort Respules) 0.5 mg IH [id number] [facility] Last Admin: 06/15/17 19:32 Dose: 0.5 mg Gabapentin (Neurontin) 300 mg PO BID [facility] PRN Reason: Protocol Last Admin: 06/15/17 18:25 Dose: 300 mg Heparin Sodium (Porcine) (Heparin) 5,000 units SC Q12 [facility] PRN Reason: Protocol Last Admin: 06/15/17 21:12 Dose: Not Given Meropenem (Merrem Iv 1 Gm Premix) 50 mls @ 100 mls/hr IVPB Q8 [facility] PRN Reason: Protocol Last Admin: 06/16/17 06:11 Dose: 100 mls/hr Loperamide HCl (Imodium) 2 mg PO QID PRN PRN Reason: Diarrhea Methylprednisolone (Solu-Medrol) 20 mg IVP Q12 [facility] Last Admin: 06/15/17 21:13 Dose: 20 mg Morphine Sulfate (Morphine Immediate Release Tab) 15 mg PO Q6 PRN PRN Reason: Pain, moderate (4-7) Last Admin: 06/16/17 02:46 Dose: 15 mg Ondansetron HCl (Zofran Inj) 4 mg IVP Q6H PRN PRN Reason: Nausea/Vomiting Last Admin: 06/15/17 05:02 Dose: 4 mg Pantoprazole Sodium (Protonix Ec Tab) 40 mg PO ACB [facility] Last Admin: 06/15/17 08:21 Dose: 40 mg Paroxetine HCl (Paxil) 5 mg PO HS [facility] Last Admin: 06/15/17 21:13 Dose: 5 mg - Labs Labs: 06/16/17 06:30 06/16/17 06:30 PT 13.9 SECONDS (9.4-12.5) H 06/13/17 08:45 INR 1.20 (0.93-1.08) H 06/13/17 08:45 APTT 28.9 Seconds (25.1-36.5) 06/10/17 06:00 - Constitutional Appears: Cachectic, Chronically Ill - Head Exam Head Exam: NORMAL INSPECTION - Neck Exam Neck Exam: absent: Meningismus - Respiratory Exam Respiratory Exam: Decreased Breath Sounds - Cardiovascular Exam Cardiovascular Exam: +S1, +S2 - GI/Abdominal Exam GI & Abdominal Exam: Soft. absent: Tenderness Assessment and Plan - Assessment and Plan (Free Text) Plan: Assessment Sepsis right lower lobe HCAP with ESBL Klebsiella, slowly improving history of Influenza A infection history of Klebsiella UTI right humeral closed fracture history of VDRF from poor responsiveness, on top of probable severe sepsis from HCAP, bilateral CHF with alcoholic cardiomyopathy DM COPD Hodgkin lymphoma ITP history of alcohol abuse Plan continue Merrem and Zithromax day 4 and will continue to monitor clinically - complete 4-7 days of therapy
--- NOTE | 2017-06-16 14:20 | PN ---
DATE: 06/16/2017 PULMONARY PROGRESS NOTE SUBJECTIVE: The patient is the most comfortable I had ever seen her. She is lying in bed and unable to get out of bed, but now she is feeling great. She is able to speak without shortness of breath. She feels comfortable. She looks magnificent. PHYSICAL EXAMINATION: VITAL SIGNS: Stable. She is afebrile, heart rate 86, respiratory rate 16 to 18, blood pressure 100/60, O2 sat with oxygen is 96%. HEENT: Normocephalic, atraumatic. No JVD. No lymphadenopathy. No bruit. CARDIOVASCULAR: Regular rhythm. S1 and S2. No gallop is appreciated this morning. LUNGS: Minimal crackles at the bases, minimal rhonchi throughout. No wheezing auscultated. ABDOMEN: Soft, bowel sounds are normoactive without mass, guarding, rebound, or organomegaly. EXTREMITIES: Reveal no clubbing, no cyanosis. Edema is less. There is no Homans' sign. SKIN: Shows no rash or excoriation. NEUROLOGIC: Mental status is a wonderful, but remainder of the examination is limited. CLINICAL IMPRESSION: 1. Status post respiratory failure. 2. Status post congestive heart failure. 3. Advanced alcoholic cardiomyopathy. 4. Advanced chronic obstructive pulmonary disease. 5. Possible pneumonitis. PLAN: The x-ray today was of no significant help, it is poorly positioned, it is overly penetrated. A new x-ray will need to be done clinically; however, the patient looks wonderful. I did only hear minimal rales less than previous and I doubt that there is minimal rales. There are also minimal rhonchi. Follow-up x-ray will be done to look for any further changes. We will discuss these problems with the infectious disease doctor as well as Dr. King. We will follow her closely. It is wonderful to see her looking this well; however, the long-term prognosis as we are all aware is guarded. Thank you for the opportunity to evaluate this patient. Clifton Castelan MD [place]
--- NOTE | 2017-06-17 01:01 | PN ---
DATE: 06/16/2017 DAILY PROGRESS NOTE SUBJECTIVE: The patient is a 66-year-old female with a long history of alcoholic cardiomyopathy and an ejection fraction of 15% over many years. She had been hospitalized for congestive heart failure. She is status post myocardial infarction. She has a chronically fractured right humerus. She also has a history of alcoholic bone marrow suppression. The patient was admitted with respiratory distress and mental status changes. It is believed the patient accidentally overdosed on some morphine tablets, which she takes for chronic back pain. In the emergency room, she received Narcan x3 with some improvement; however, her respiratory status failed and the patient was intubated, admitted to the Intensive Care Unit. There, she did well. Eventually, she was extubated, transferred to the medical floor where she is today. She was evaluated by Dr. Leigh Ann Loco, the psychiatrist. She was started on Paxil 5 mg at bedtime. She is also receiving Xanax 0.5 mg every 6 hours as needed. Medications also include Neurontin 300 mg twice a day, Pulmicort, DuoNeb and Solu-Medrol. For bilateral pneumonia and pleural effusion, she is receiving Merrem and azithromycin. Today is day 5 of a 7-day regimen. Her tracheal sputum grew Klebsiella species. When seen today, the patient is awake, alert and oriented. Her significant other is at her bedside. She is feeling well. There are some crackles at the bilateral bases. Her heart sounds are regular. Laboratory studies show the white blood cell count to be 8.3, hemoglobin and hematocrit are 8.9 and 27.8 respectively, platelet count is 162. Sodium is 139, potassium 4.1, BUN and creatinine are 15 and 0.7 respectively. Her blood pressure is 99/49, which is problematic because her Lasix would be held as her blood pressure is so low; however, we are continuing to diurese the patient. Her BNP is 77,100. So we are continuing with the current medications, following the patient closely and she will be reevaluated in the morning. Baljeet King MD [facility] # [id number]
[2017-06-17] MEDS: Albuterol-Ipratrop 3 mg / 0.5 (3 ml) UD IH SCH ×4 (03:40→22:00)
[2017-06-17] MEDS: Meropenem IV 1 gm in NS 50 ML IVPB SCH ×3 (05:28→22:09)
[2017-06-17] MEDS: Morphine 15 mg Immediate Release Tab PO PRN ×2 (05:31→15:26)
[2017-06-17] MEDS: Budesonide 0.5 mg/2 ml Inhal Susp UD IH SCH ×2 (07:31→22:00)
[2017-06-17] MEDS: Pantoprazole 40 mg EC Tab PO SCH (08:48)
[2017-06-17] MEDS: MethylPREDNISolone 40 mg Vial IVP SCH ×2 (09:53→22:10)
--- NOTE | 2017-06-17 10:29 | RAD ---
HISTORY: poor exan today r/o effusion/pn COMPARISON: Yesterday FINDINGS: LUNGS: There appears to be some mild increase in subsegmental atelectasis at the right lung base. This may be related to slight increase in effusion. Left lung is unchanged. PLEURA: Slight increase in right effusion. CARDIOVASCULAR: Stable vascular congestion. Central lines are unchanged. OSSEOUS STRUCTURES: No significant abnormalities. VISUALIZED UPPER ABDOMEN: Normal. OTHER FINDINGS: None. IMPRESSION: Mild increase in density at the right lung base suggesting mild increase in subsegmental atelectasis and/or pleural fluid. Vasculature is unchanged.
--- NOTE | 2017-06-17 14:50 | CP.PCM.PN ---
Subjective - Date & Time of Evaluation Date of Evaluation: 06/17/17 Time of Evaluation: 13:45 - Subjective Subjective: Comfortable in bed, no fevers. Objective - Vital Signs/Intake and Output Vital Signs (last 24 hours): Temp Pulse Resp BP Pulse Ox 98.3 F 79 18 103/61 99 06/16/17 22:00 06/16/17 22:00 06/16/17 22:00 06/16/17 22:00 06/16/17 22:00 Intake and Output: 06/17/17 06/17/17 06:59 18:59 Intake Total 1470 360 Output Total 500 300 Balance 970 60 - Medications Medications: Current Medications Acetaminophen (Tylenol 650 Mg Supp) 650 mg RC Q6H PRN PRN Reason: Fever >100.4 F Last Admin: 06/13/17 21:40 Dose: 650 mg Acetaminophen (Tylenol 325mg Tab) 650 mg PO Q6H PRN PRN Reason: Headache Last Admin: 06/14/17 23:42 Dose: 650 mg Albuterol/Ipratropium (Duoneb 3 Mg/0.5 Mg (3 Ml) Ud) 3 ml IH [id number] [facility] Last Admin: 06/17/17 07:31 Dose: 3 ml Alprazolam (Xanax) 0.5 mg PO Q6H PRN PRN Reason: Anxiety Stop: 06/21/17 11:38 Last Admin: 06/17/17 01:00 Dose: 0.5 mg Budesonide (Pulmicort Respules) 0.5 mg IH [id number] [facility] Last Admin: 06/17/17 07:31 Dose: 0.5 mg Gabapentin (Neurontin) 300 mg PO BID [facility] PRN Reason: Protocol Last Admin: 06/16/17 17:47 Dose: 300 mg Heparin Sodium (Porcine) (Heparin) 5,000 units SC Q12 [facility] PRN Reason: Protocol Last Admin: 06/16/17 21:09 Dose: Not Given Meropenem (Merrem Iv 1 Gm Premix) 50 mls @ 100 mls/hr IVPB Q8 [facility] PRN Reason: Protocol Last Admin: 06/17/17 05:28 Dose: 100 mls/hr Loperamide HCl (Imodium) 2 mg PO QID PRN PRN Reason: Diarrhea Methylprednisolone (Solu-Medrol) 20 mg IVP Q12 [facility] Last Admin: 06/16/17 21:10 Dose: 20 mg Morphine Sulfate (Morphine Immediate Release Tab) 15 mg PO Q6 PRN PRN Reason: Pain, moderate (4-7) Last Admin: 06/17/17 05:31 Dose: 15 mg Ondansetron HCl (Zofran Inj) 4 mg IVP Q6H PRN PRN Reason: Nausea/Vomiting Last Admin: 06/15/17 05:02 Dose: 4 mg Pantoprazole Sodium (Protonix Ec Tab) 40 mg PO ACB [facility] Last Admin: 06/17/17 08:48 Dose: 40 mg Paroxetine HCl (Paxil) 5 mg PO HS [facility] Last Admin: 06/16/17 21:10 Dose: 5 mg - Labs Labs: 06/16/17 06:30 06/16/17 06:30 PT 13.9 SECONDS (9.4-12.5) H 06/13/17 08:45 INR 1.20 (0.93-1.08) H 06/13/17 08:45 APTT 28.9 Seconds (25.1-36.5) 06/10/17 06:00 - Constitutional Appears: Cachectic, Chronically Ill - Head Exam Head Exam: NORMAL INSPECTION - Respiratory Exam Respiratory Exam: Decreased Breath Sounds - Cardiovascular Exam Cardiovascular Exam: +S1, +S2 - GI/Abdominal Exam GI & Abdominal Exam: Soft. absent: Tenderness Assessment and Plan - Assessment and Plan (Free Text) Plan: Assessment Sepsis right lower lobe HCAP with ESBL Klebsiella, slowly improving history of Influenza A infection history of Klebsiella UTI right humeral closed fracture history of VDRF from poor responsiveness, on top of probable severe sepsis from HCAP, bilateral CHF with alcoholic cardiomyopathy DM COPD Hodgkin lymphoma ITP history of alcohol abuse Plan continue Merrem day 5 and will continue to monitor clinically - complete 4-7 days of therapy
--- NOTE | 2017-06-18 01:03 | PN ---
DATE: 06/17/2017 DAILY PROGRESS NOTE I would like today's progress note to be read as follows, if you would be so kind. SUBJECTIVE: The patient is a 66-year-old female with a long history of alcoholic cardiomyopathy and ejection fraction of 15%. She has a history of congestive heart failure, status post myocardial infarction, chronic fracture of right humerus, alcoholic bone marrow suppression with pancytopenia, who was admitted on 06/10 with possible accidental overdose of morphine sulfate, which she takes for chronic back pain. She received Narcan x3 in the emergency room, was intubated, subsequently, admitted to the Intensive Care Unit. Eventually, she was extubated, transferred to the medical floor where she is today. She was evaluated by Dr. Leigh Ann Loco, the psychiatrist. When seen today, she is feeling well. She voices no complaints. She is receiving antibiotics of Merrem and azithromycin for Klebsiella species was cultured from the trach tube. We were also treating bilateral pneumonia and pleural effusion that are seen on chest x-ray. She was started on Paxil 5 mg at bedtime as well as Xanax 0.5 mg on a p.r.n. basis and this seemed to have changed the patient's attitude and mental status remarkably. She is also on Neurontin 300 mg twice a day, Pulmicort, DuoNeb and Solu-Medrol. When seen today, the patient is awake, alert and oriented. She has no complaints. She is anxious to get out of bed, so an order for physical therapy had been written, however, I will write the order for out of bed to chair today and we are continuing to follow the patient closely. Baljeet King MD [place]
[2017-06-18] MEDS: Morphine 15 mg Immediate Release Tab PO PRN ×2 (03:08→17:23)
[2017-06-18] MEDS: Albuterol-Ipratrop 3 mg / 0.5 (3 ml) UD IH SCH ×4 (03:44→20:36)
[2017-06-18] MEDS: Meropenem IV 1 gm in NS 50 ML IVPB SCH ×3 (06:04→22:12)
[2017-06-18] MEDS: Budesonide 0.5 mg/2 ml Inhal Susp UD IH SCH ×2 (07:29→20:36)
[2017-06-18] MEDS ORDERED: MethylPREDNISolone 40 mg Vial IVP SCH (08:07)
[2017-06-18] MEDS: Pantoprazole 40 mg EC Tab PO SCH (08:15)
--- NOTE | 2017-06-18 08:27 | PN ---
DATE: 06/15/2017 I would like today's progress note to be read as follows, if you would be so kind. SUBJECTIVE: The patient is a 66-year-old female who was brought to the [facility] Emergency Room with mental status changes and difficulty breathing. There is a question of her possibly accidentally overdosing on morphine sulfate tablets, which she had been on chronically for back pain. She received Narcan three times in the emergency room. Her respirations were still distressed and therefore she was extubated and admitted to the Intensive Care Unit. She did well, was eventually extubated and is now transferred to the medical floor, 561. The patient is known to have a past medical history positive for alcoholic cardiomyopathy with an ejection fraction of 15%. She also has a history of congestive heart failure, status post myocardial infarction and chronic fracture of the right humerus, alcoholic bone marrow suppression with pancytopenia in the past. She has been evaluated by Dr. Leigh Ann Loco, the psychiatrist and started on Paxil 5 mg at bedtime. She is also receiving Xanax 0.5 mg three times a day and every 6 hours p.r.n. Other medications at this time include Neurontin 300 mg twice a day; Pulmicort, DuoNeb nebulizer treatments; Solu-Medrol 20 mg intravenously every 12 hours. She is receiving Merrem for bilateral pneumonia and azithromycin. Her sputum cultures while intubated grew Klebsiella, which was sensitive to Cipro, meropenem and gentamicin. Recent x-rays done yesterday, which showed actually worsening of her bilateral infiltrates and pleural effusions. PHYSICAL EXAMINATION: VITAL SIGNS: Her blood pressure this morning is 91/53. She is afebrile. Heart rate was 84. LABORATORY DATA: White blood cell count was 9, hemoglobin and hematocrit were 8.6 and 26.9, platelet count is 142. Sodium is 141, potassium 3.8, blood urea nitrogen 15, creatinine 0.9 and glucose was 92. ASSESSMENT AND PLAN: When seen today, the patient is awake, alert and oriented. She is surprisingly in good spirits. She is actually voicing no complaints; in the past, she had been constantly requesting more opioid, analgesics and antiemetics. Today, however, she seems to be very satisfied with her well-being. We are continuing current medications and continuing to follow the patient closely. She will be reevaluated in the morning, continuing antibiotics for the bilateral pneumonia and effusions. Baljeet King MD [facility]
--- NOTE | 2017-06-18 09:55 | PN ---
DATE: 06/18/2017 PULMONARY PROGRESS NOTE SUBJECTIVE: The patient is markedly improved, sitting in bed, in good spirits, eating well. No shortness of breath noted. PHYSICAL EXAMINATION: GENERAL: She is resting comfortably, in no acute distress, markedly improved. VITAL SIGNS: Stable. Oxygen saturation is improved 96%, 97% on supplemental oxygen nasal cannula, respiratory rate 16. HEENT: Normocephalic, atraumatic. CARDIOVASCULAR: Regular rhythm. S1, S2. No gallop or rub. LUNGS: Global decrease in breath sounds, but clinically improved. ABDOMEN: Soft. Bowel sounds normoactive. EXTREMITIES: No clubbing, cyanosis. Trace edema. SKIN: No rash or excoriations. NEUROLOGICAL: Status markedly improved. CLINICAL DATA: Chest x-ray shows close improvement in pulmonary vascular congestion and/or infiltrates. IMPRESSION: 1. Status post respiratory failure. 2. Status post congestive heart failure. 3. Improvement in radiographic findings. 4. Alcoholic cardiomyopathy. 5. Chronic obstructive pulmonary disease. 6. Improved pneumonitis. PLAN: Continue vigorous bronchodilators and inhaled corticosteroids. Decrease parenteral corticosteroids, changed to p.o. The patient must be followed until stable. She should be seen as an outpatient to make sure that her status improves. The case was discussed at length with Dr. Mauricio King and we will follow her up as necessary in the near future. Followup x-ray will be required in two weeks to look for complete resolution of infiltrates and congestion. Thank you for the opportunity to evaluate Michelle Rush, we will decrease her steroids. Clifton Castelan MD
--- NOTE | 2017-06-18 11:46 | PN ---
DATE: 06/18/2017 DAILY PROGRESS NOTE SUBJECTIVE: The patient is a 66-year-old female with a long history of alcoholic cardiomyopathy and an ejection fraction of 15%. She also has a history of congestive heart failure, status post myocardial infarction; chronic fracture of the right humerus; alcoholic bone marrow suppression with pancytopenia; who was admitted on 06/10/2017 with possible accidental overdose of morphine sulfate, which she takes for chronic back pain. She received Narcan in the emergency room, was intubated and admitted to the Intensive Care Unit. A few days later, she was essentially extubated and eventually discharged to the medical floor. She was seen by Dr. Leigh Ann Loco and was started on antidepressants and anxiolytics. The patient is also receiving Merrem and azithromycin for Klebsiella species, which was cultured from the trach tube as well as bilateral pneumonia and pleural effusions that were seen on the chest x-ray. When seen today, the patient is in bed. She is awake, alert and oriented. Her significant other is at bedside. She is in good spirits. During my visit with her, Dr. Castelan came into the room. He stated that the followup chest x-ray was greatly improved. The patient's lungs are clear anteriorly and laterally. Her heart is regular. Abdomen is soft and nontender. Yesterday, she was sitting up in a chair for 2 hours, which she feels good about and she is requesting a possible transfer to the Transitional Care Unit for further ambulatory physical therapy. Up until now, the patient was on intravenous Solu-Medrol. As per Dr. Castelan, she has been changed to oral Medrol. We are continuing with Paxil 5 mg at bedtime and Xanax 0.5 mg p.r.n. as well as Neurontin 300 mg twice a day, Pulmicort, DuoNeb and Medrol as mentioned above. So the patient is to be reevaluated for transitional care and we will continue to follow the patient closely. Baljeet King MD [place]
--- NOTE | 2017-06-18 18:31 | PN ---
DATE: 06/18/2017 SUBJECTIVE: The patient was followed up today, presented much better. The patient denied being depressed. Denied feeling anxious. The patient reported that her energy is coming back. The patient has future oriented plans to get stronger. At present moment, plan is to be transferred to the Transitional Care Unit and after that, the patient wants to go back home. The patient was appreciative. The patient wants to continue the same medication regiment and the same distribution time. Vital signs are stable. Temperature 98.5, pulse is 80, blood pressure 113/64, respirations 20, and oxygen saturation is 91. MEDICATIONS: Reviewed. The patient is on Xanax 0.5 mg every 6 hours p.r.n. as well as scheduled dose of Paxil 5 mg at the nighttime. The patient tolerates them well. Denies any side effects. Labs reviewed. Most recent was from 06/16/2017. MENTAL STATUS EXAMINATION: The patient presented to be alert and oriented, pleasant, cooperative. Personal hygiene is good. Affect was bright and mood congruent. Mood described as "I'm not depressed, I want to continue all of the medication, I feel great." Thought process coherent and goal directed. Thought content, the patient denied visual, auditory, or tactile hallucinations. Denied paranoid ideation. The patient denied thoughts of harming herself or others. Denied intent or plan. Insight and judgment seems to be fair. Impulses are well controlled. 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 PLAN: Continue current management. Continue current medication. This technical document writer will sign off. The patient was great today from the psychiatric standpoint. Should you have any questions or concerns, please do not hesitate to call me back. Meanwhile, this technical document writer will sign off. Should you have any questions, give me a call back. The patient is not in any imminent danger to self or others. Thank you very much for letting me participate in the care of your patient. Leigh Ann Loco MD
--- NOTE | 2017-06-18 19:15 | CP.PCM.PN ---
Subjective - Date & Time of Evaluation Date of Evaluation: 06/18/17 Time of Evaluation: 12:10 - Subjective Subjective: Breathing better, no fevers, no nausea, no diarrhea. Objective - Vital Signs/Intake and Output Vital Signs (last 24 hours): Temp Pulse Resp BP Pulse Ox 98.8 F 78 18 105/61 116 H 06/18/17 06:00 06/18/17 06:00 06/18/17 06:00 06/17/17 22:00 06/18/17 06:00 Intake and Output: 06/18/17 06/18/17 06:59 18:59 Intake Total 1230 420 Output Total 525 Balance 705 420 - Medications Medications: Current Medications Acetaminophen (Tylenol 650 Mg Supp) 650 mg RC Q6H PRN PRN Reason: Fever >100.4 F Last Admin: 06/13/17 21:40 Dose: 650 mg Acetaminophen (Tylenol 325mg Tab) 650 mg PO Q6H PRN PRN Reason: Headache Last Admin: 06/18/17 08:15 Dose: 650 mg Albuterol/Ipratropium (Duoneb 3 Mg/0.5 Mg (3 Ml) Ud) 3 ml IH [id number] [facility] Last Admin: 06/18/17 07:29 Dose: Not Given Alprazolam (Xanax) 0.5 mg PO Q6H PRN PRN Reason: Anxiety Stop: 06/21/17 11:38 Last Admin: 06/17/17 22:19 Dose: 0.5 mg Budesonide (Pulmicort Respules) 0.5 mg IH [id number] [facility] Last Admin: 06/18/17 07:29 Dose: Not Given Gabapentin (Neurontin) 300 mg PO BID [facility] PRN Reason: Protocol Last Admin: 06/17/17 17:12 Dose: 300 mg Heparin Sodium (Porcine) (Heparin) 5,000 units SC Q12 [facility] PRN Reason: Protocol Last Admin: 06/17/17 22:09 Dose: Not Given Meropenem (Merrem Iv 1 Gm Premix) 50 mls @ 100 mls/hr IVPB Q8 [facility] PRN Reason: Protocol Last Admin: 06/18/17 06:04 Dose: 100 mls/hr Loperamide HCl (Imodium) 2 mg PO QID PRN PRN Reason: Diarrhea Methylprednisolone (Medrol) 8 mg PO BID BELEM Morphine Sulfate (Morphine Immediate Release Tab) 15 mg PO Q6 PRN PRN Reason: Pain, moderate (4-7) Last Admin: 06/18/17 03:08 Dose: 15 mg Ondansetron HCl (Zofran Inj) 4 mg IVP Q6H PRN PRN Reason: Nausea/Vomiting Last Admin: 06/18/17 06:04 Dose: 4 mg Pantoprazole Sodium (Protonix Ec Tab) 40 mg PO ACB [facility] Last Admin: 06/18/17 08:15 Dose: 40 mg Paroxetine HCl (Paxil) 5 mg PO HS [facility] Last Admin: 06/17/17 22:09 Dose: 5 mg - Labs Labs: 06/16/17 06:30 06/16/17 06:30 PT 13.9 SECONDS (9.4-12.5) H 06/13/17 08:45 INR 1.20 (0.93-1.08) H 06/13/17 08:45 APTT 28.9 Seconds (25.1-36.5) 06/10/17 06:00 - Constitutional Appears: Chronically Ill - Head Exam Head Exam: NORMAL INSPECTION - ENT Exam ENT Exam: Mucous Membranes Moist - Respiratory Exam Respiratory Exam: Decreased Breath Sounds - Cardiovascular Exam Cardiovascular Exam: +S1, +S2 - GI/Abdominal Exam GI & Abdominal Exam: Soft. absent: Tenderness Assessment and Plan - Assessment and Plan (Free Text) Plan: Assessment Sepsis right lower lobe HCAP with ESBL Klebsiella, slowly improving history of Influenza A infection history of Klebsiella UTI right humeral closed fracture history of VDRF from poor responsiveness, on top of probable severe sepsis from HCAP, bilateral CHF with alcoholic cardiomyopathy DM COPD Hodgkin lymphoma ITP history of alcohol abuse Plan continue Merrem day 6 and will continue to monitor clinically - complete 7 days of therapy
[2017-06-19] MEDS: Morphine 15 mg Immediate Release Tab PO PRN ×2 (01:11→21:02)
[2017-06-19] MEDS: Meropenem IV 1 gm in NS 50 ML IVPB SCH ×3 (06:14→21:04)
[2017-06-19] MEDS: Budesonide 0.5 mg/2 ml Inhal Susp UD IH SCH ×2 (07:07→20:11)
[2017-06-19] MEDS: Albuterol-Ipratrop 3 mg / 0.5 (3 ml) UD IH SCH ×3 (07:07→20:11)
[2017-06-19] MEDS: Pantoprazole 40 mg EC Tab PO SCH (08:17)
--- NOTE | 2017-06-19 16:13 | CP.PCM.PN ---
Subjective - Date & Time of Evaluation Date of Evaluation: 06/19/17 Time of Evaluation: 11:55 - Subjective Subjective: Breathing better, less cough, no fevers, starting to get more energy. No diarrhea. Objective - Vital Signs/Intake and Output Vital Signs (last 24 hours): Temp Pulse Resp BP Pulse Ox 98.6 F 81 18 90/53 L 95 06/19/17 06:00 06/19/17 06:00 06/19/17 06:00 06/19/17 06:00 06/19/17 06:00 Intake and Output: 06/19/17 06/19/17 06:59 18:59 Intake Total 870 Output Total 800 Balance 70 - Medications Medications: Current Medications Acetaminophen (Tylenol 650 Mg Supp) 650 mg RC Q6H PRN PRN Reason: Fever >100.4 F Last Admin: 06/13/17 21:40 Dose: 650 mg Acetaminophen (Tylenol 325mg Tab) 650 mg PO Q6H PRN PRN Reason: Headache Last Admin: 06/18/17 08:15 Dose: 650 mg Albuterol/Ipratropium (Duoneb 3 Mg/0.5 Mg (3 Ml) Ud) 3 ml IH [id number] [facility] Last Admin: 06/19/17 07:07 Dose: 3 ml Alprazolam (Xanax) 0.5 mg PO Q6H PRN PRN Reason: Anxiety Stop: 06/21/17 11:38 Last Admin: 06/19/17 06:15 Dose: 0.5 mg Budesonide (Pulmicort Respules) 0.5 mg IH [id number] [facility] Last Admin: 06/19/17 07:07 Dose: 0.5 mg Gabapentin (Neurontin) 300 mg PO BID [facility] PRN Reason: Protocol Last Admin: 06/18/17 17:15 Dose: 300 mg Heparin Sodium (Porcine) (Heparin) 5,000 units SC Q12 [facility] PRN Reason: Protocol Last Admin: 06/18/17 22:00 Dose: Not Given Meropenem (Merrem Iv 1 Gm Premix) 50 mls @ 100 mls/hr IVPB Q8 [facility] PRN Reason: Protocol Last Admin: 06/19/17 06:14 Dose: 100 mls/hr Loperamide HCl (Imodium) 2 mg PO QID PRN PRN Reason: Diarrhea Methylprednisolone (Medrol) 8 mg PO BID [facility] Last Admin: 06/18/17 17:15 Dose: 8 mg Morphine Sulfate (Morphine Immediate Release Tab) 15 mg PO Q6 PRN PRN Reason: Pain, moderate (4-7) Last Admin: 06/19/17 01:11 Dose: 15 mg Ondansetron HCl (Zofran Inj) 4 mg IVP Q6H PRN PRN Reason: Nausea/Vomiting Last Admin: 06/18/17 06:04 Dose: 4 mg Pantoprazole Sodium (Protonix Ec Tab) 40 mg PO ACB [facility] Last Admin: 06/19/17 08:17 Dose: 40 mg Paroxetine HCl (Paxil) 5 mg PO HS [facility] Last Admin: 06/18/17 22:12 Dose: 5 mg - Labs Labs: 06/16/17 06:30 06/16/17 06:30 PT 13.9 SECONDS (9.4-12.5) H 06/13/17 08:45 INR 1.20 (0.93-1.08) H 06/13/17 08:45 APTT 28.9 Seconds (25.1-36.5) 06/10/17 06:00 - Constitutional Appears: Chronically Ill - Head Exam Head Exam: NORMAL INSPECTION - ENT Exam ENT Exam: Mucous Membranes Moist - Neck Exam Neck Exam: absent: Meningismus - Respiratory Exam Respiratory Exam: Decreased Breath Sounds - Cardiovascular Exam Cardiovascular Exam: +S1, +S2 - GI/Abdominal Exam GI & Abdominal Exam: Soft. absent: Tenderness Assessment and Plan - Assessment and Plan (Free Text) Plan: Assessment Sepsis right lower lobe HCAP with ESBL Klebsiella, slowly improving history of Influenza A infection history of Klebsiella UTI right humeral closed fracture history of VDRF from poor responsiveness, on top of probable severe sepsis from HCAP, bilateral CHF with alcoholic cardiomyopathy DM COPD Hodgkin lymphoma ITP history of alcohol abuse Plan continue Merrem day 7 and will continue to monitor clinically - complete 7 days of therapy
--- NOTE | 2017-06-20 00:06 | PN ---
DATE: 06/19/2017 SUBJECTIVE: The patient was seen this Sunday in room 561 with at the bedside. She is awake, alert, clear, quite pleasant and in good spirits perhaps with dramatic change related to the Paxil. I spoke with her at length regarding discharge planning. She is not at all interested in going to a subacute rehab. She will consider going to transitional care or home. I spoke with case packer and sealer for discharge plans and nurse practitioner on the floor. We will see if we can have her reevaluated for TCU and if not, then the plan per the patient's intent will be discharge to home. Before that, we will need to discontinue the Cota and discontinue the central catheter, which I will ensure later today and tomorrow. Tripp King MD
[2017-06-20] MEDS: Albuterol-Ipratrop 3 mg / 0.5 (3 ml) UD IH SCH ×4 (01:25→19:44)
[2017-06-20] MEDS: Morphine 15 mg Immediate Release Tab PO PRN ×3 (03:25→22:42)
[2017-06-20] MEDS: Meropenem IV 1 gm in NS 50 ML IVPB SCH (06:25)
[2017-06-20] MEDS: Budesonide 0.5 mg/2 ml Inhal Susp UD IH SCH ×2 (07:05→19:44)
[2017-06-20] MEDS: Pantoprazole 40 mg EC Tab PO SCH (08:06)
--- NOTE | 2017-06-20 10:17 | PN ---
DATE: 06/20/2017 PULMONARY PROGRESS NOTE SUBJECTIVE: The patient was seen and examined at bedside. She is receiving inhalation treatments with albuterol and ipratropium. She is receiving oxygen by nasal cannula. She is also on low dose oral steroids. PHYSICAL EXAMINATION: VITAL SIGNS: Are as follows: Temperature is 98.4, [id number], blood pressure 130/70, oxygen saturation is 94%. HEAD, EARS, NOSE AND THROAT: Within normal limits. NECK: Supple with no jugular vein distention. CARDIOVASCULAR: Regular rhythm, S1, S2, no gallop. PULMONARY: Diminished breath sounds at both lung bases. GASTROINTESTINAL: Soft and nontender. No organomegaly. EXTREMITIES: No clubbing, cyanosis or edema. SKIN: No skin rash. No cyanosis. NEUROLOGIC: Limited at present time. CLINICAL DATA: Chest x-ray shows improvement in pulmonary vascular congestion and/or infiltrates. ASSESSMENT: 1. Status post respiratory failure. 2. Congestive heart failure. 3. Alcoholic cardiomyopathy. 4. Chronic obstructive pulmonary disease with exacerbation. PLAN: Would keep on current bronchodilators as well as low-dose inhalant and oral steroids. The patient is improving. We will continue with current intervention. Rylan Blackman MD
[2017-06-20 11:53] LABS: HEMOGLOBIN 9.8 g/dL (12.0-16.0); MEAN CELL VOLUME 96.1 fl (80.0-105.0); MEAN CORPUSCULAR HEMOGLOBIN 31.5 pg (25.0-35.0); MEAN CORPUSCULAR HGB CONC 32.8 g/dl (31.0-37.0); MEAN PLATELET VOLUME 8.7 fl (7.0-11.0); RBC 3.11 10^6/uL (3.5-6.1); RED CELL DISTRIBUTION WIDTH 17.6 % (11.5-14.5); WHITE BLOOD COUNT 17.3 10^3/ul (4.5-11.0)
[2017-06-20] MEDS: Furosemide 40 mg/5 mL Oral Soln UD PO SCH (13:05)
--- NOTE | 2017-06-20 13:57 | PN ---
DATE: 06/20/2017 CARDIOLOGY FOLLOWUP SUBJECTIVE: The patient is without symptoms. PHYSICAL EXAMINATION: VITAL SIGNS: Blood pressure is 109/63 with the heart rates in the 60s. NECK: Negative JVD. LUNGS: Without rales. HEART: Reveals S1, S2. EXTREMITIES: Without edema. LABORATORY DATA: Hemoglobin is 9.8. Chemistries: Glucose is 118. IMPRESSION: 1. Stable angina. 2. Coronary artery disease. 3. End-stage dilated cardiomyopathy. 4. Chronic obstructive pulmonary disease. 5. History of alcoholism. PLAN: Given these findings, the patient is at her best that we seen over the past several years. She is awake and alert without symptoms. She needs activity. Physical therapy would be helpful. Michael Schulte MD
--- NOTE | 2017-06-20 15:51 | CP.PCM.PN ---
Subjective - Date & Time of Evaluation Date of Evaluation: 06/20/17 Time of Evaluation: 12:30 - Subjective Subjective: Comfortable, no fevers, not in distress. Objective - Vital Signs/Intake and Output Vital Signs (last 24 hours): Temp Pulse Resp BP Pulse Ox 98.2 F 65 18 109/63 95 06/20/17 06:00 06/20/17 06:00 06/20/17 06:00 06/20/17 06:00 06/20/17 06:00 Intake and Output: 06/20/17 06/20/17 06:59 18:59 Intake Total 840 Output Total 1100 Balance -260 - Medications Medications: Current Medications Acetaminophen (Tylenol 650 Mg Supp) 650 mg RC Q6H PRN PRN Reason: Fever >100.4 F Last Admin: 06/13/17 21:40 Dose: 650 mg Acetaminophen (Tylenol 325mg Tab) 650 mg PO Q6H PRN PRN Reason: Headache Last Admin: 06/19/17 15:05 Dose: 650 mg Albuterol/Ipratropium (Duoneb 3 Mg/0.5 Mg (3 Ml) Ud) 3 ml IH [id number] [facility] Last Admin: 06/20/17 07:05 Dose: 3 ml Alprazolam (Xanax) 0.5 mg PO Q6H PRN PRN Reason: Anxiety Stop: 06/21/17 11:38 Last Admin: 06/20/17 10:07 Dose: 0.5 mg Budesonide (Pulmicort Respules) 0.5 mg IH [id number] [facility] Last Admin: 06/20/17 07:05 Dose: 0.5 mg Gabapentin (Neurontin) 300 mg PO BID [facility] PRN Reason: Protocol Last Admin: 06/20/17 10:07 Dose: 300 mg Heparin Sodium (Porcine) (Heparin) 5,000 units SC Q12 [facility] PRN Reason: Protocol Last Admin: 06/20/17 10:07 Dose: Not Given Loperamide HCl (Imodium) 2 mg PO QID PRN PRN Reason: Diarrhea Methylprednisolone (Medrol) 8 mg PO BID [facility] Last Admin: 06/20/17 10:07 Dose: 8 mg Morphine Sulfate (Morphine Immediate Release Tab) 15 mg PO Q6 PRN PRN Reason: Pain, moderate (4-7) Last Admin: 06/20/17 10:08 Dose: 15 mg Ondansetron HCl (Zofran Inj) 4 mg IVP Q6H PRN PRN Reason: Nausea/Vomiting Last Admin: 06/20/17 08:06 Dose: 4 mg Pantoprazole Sodium (Protonix Ec Tab) 40 mg PO ACB [facility] Last Admin: 06/20/17 08:06 Dose: 40 mg Paroxetine HCl (Paxil) 5 mg PO HS [facility] Last Admin: 06/19/17 21:02 Dose: 5 mg - Labs Labs: 06/16/17 06:30 06/16/17 06:30 PT 13.9 SECONDS (9.4-12.5) H 06/13/17 08:45 INR 1.20 (0.93-1.08) H 06/13/17 08:45 APTT 28.9 Seconds (25.1-36.5) 06/10/17 06:00 - Constitutional Appears: Chronically Ill - Head Exam Head Exam: NORMAL INSPECTION - ENT Exam ENT Exam: Mucous Membranes Moist - Respiratory Exam Respiratory Exam: Decreased Breath Sounds - Cardiovascular Exam Cardiovascular Exam: +S1, +S2 - GI/Abdominal Exam GI & Abdominal Exam: Soft. absent: Tenderness Assessment and Plan - Assessment and Plan (Free Text) Plan: Assessment S/P sepsis right lower lobe HCAP with ESBL Klebsiella history of Influenza A infection history of Klebsiella UTI right humeral closed fracture history of VDRF from poor responsiveness, on top of probable severe sepsis from HCAP, bilateral CHF with alcoholic cardiomyopathy DM COPD Hodgkin lymphoma ITP history of alcohol abuse Plan completed 7 days of Merrem - continue to monitor the patient off antibiotics since she is at risk for nosocomial infections
[2017-06-21] MEDS: Albuterol-Ipratrop 3 mg / 0.5 (3 ml) UD IH SCH ×4 (01:15→19:56)
--- NOTE | 2017-06-21 04:08 | PN ---
DATE: 06/20/2017 SUBJECTIVE: The patient is a 66-year-old female with a long history of alcoholic cardiomyopathy and an ejection fraction of 15%, history of congestive heart failure, status post myocardial infarction, chronic right humerus fracture, alcoholic bone marrow suppression with pancytopenia who was admitted on 06/10 with a possible accidental morphine overdose. The patient takes short-acting morphine for chronic back pain. She was relieved with Narcan in the emergency room and admitted to the Intensive Care Unit. She was intubated and fortunately shortly a few days later was extubated. She was evaluated by Dr. Leigh Ann Loco, the psychiatrist, started on Xanax 0.5 mg as well as Paxil 5 mg at bedtime. The patient was evaluated by Dr. Ray, the Infectious Disease specialist, was started on Merrem and azithromycin for Klebsiella species, which was cultured from the trach tube and bilateral pneumonia, which was seen on chest x-ray. The patient did very, very well on her Paxil and Xanax regimen. She was awake, alert and oriented. She was in good spirits. She continued to be followed by Pulmonology during her hospital stay. Her lungs had cleared. She is looking forward to physical therapy in the Transitional Care Unit; however, evaluation by the certified mortician felt the patient would do better for a longer term at subacute care facility, which the patient did not want and therefore plans were being made for her to be discharged to home. The patient will require some time to get bed pads and other necessary things for her to return home. Her central line catheter is to be discontinued. The patient is to continue on with her Cota catheter and this could be removed by the visiting nurses once she is at home and is more stable and able to get out of bed to a commode. Her Solu-Medrol has been changed to oral tablets. We will be continuing with the Paxil 5 mg at bedtime as well as Xanax 0.5 mg as needed. We are also continuing with Neurontin 300 mg twice a day, Pulmicort, DuoNeb and tapering the Medrol to DC. The patient is to be reevaluated in the morning and with the hopes of discharge to home in the next day or two. Baljeet King MD [place]
[2017-06-21] MEDS: Morphine 15 mg Immediate Release Tab PO PRN (05:24)
[2017-06-21 06:10] LABS: HEMOGLOBIN 9.3 g/dL (12.0-16.0); MEAN CELL VOLUME 96.7 fl (80.0-105.0); MEAN CORPUSCULAR HEMOGLOBIN 30.9 pg (25.0-35.0); MEAN PLATELET VOLUME 8.8 fl (7.0-11.0); RBC 3.01 10^6/uL (3.5-6.1); RED CELL DISTRIBUTION WIDTH 17.6 % (11.5-14.5)
[2017-06-21] MEDS: Budesonide 0.5 mg/2 ml Inhal Susp UD IH SCH ×2 (08:00→19:56)
[2017-06-21] MEDS: Pantoprazole 40 mg EC Tab PO SCH (08:11)
[2017-06-21] MEDS: Furosemide 40 mg/5 mL Oral Soln UD PO SCH (10:38)
[2017-06-21] MEDS ORDERED: Benzocaine/Menthol (Cepacol) Lozenge MT PRN (18:24)
[2017-06-21] MEDS: Nystatin 100,000 Units/ml Oral Susp 5 ml UD PO SCH (21:44)
--- NOTE | 2017-06-21 21:58 | PN ---
DATE: 06/21/2017 SUBJECTIVE: The patient was seen early this morning in room 561, bed 1. PHYSICAL EXAMINATION: VITAL SIGNS: Temperature is 98, blood pressure is 90/40, respiratory rate of 20. HEENT: Examination of HEENT is unremarkable. NECK: Supple. LUNGS: Have decreased breath sounds. HEART: Normal S1, S2. ABDOMEN: Soft, nontender. LABORATORY DATA: Laboratory examination reveals a white count of 13,000, hemoglobin of 9. Chemistries are noted with BUN of 15, creatinine of 0.7. BNP is over 77,000. Microbiology reveals the patient has Klebsiella pneumoniae from the trach cultures, the sputum culture. The blood cultures are reported to be negative. The Klebsiella is ESBL. ASSESSMENT AND PLAN: A 66-year-old female status post sepsis with a right lower lobe healthcare-associated pneumonia with extended-spectrum beta-lactamase Klebsiella and history of influenza A infection, history of Klebsiella urinary tract infection, right humeral closed fracture, congestive heart failure, alcoholic cardiomyopathy, diabetes mellitus, chronic obstructive lung disease and Hodgkin's lymphoma and has completed meropenem therapy. Currently, off of antibiotics. afebrile and possible discharge. Daniel Byrd MD
[2017-06-22] MEDS: Morphine 15 mg Immediate Release Tab PO PRN ×2 (00:20→11:27)
[2017-06-22] MEDS: Albuterol-Ipratrop 3 mg / 0.5 (3 ml) UD IH SCH ×3 (02:59→13:08)
[2017-06-22] MEDS: Budesonide 0.5 mg/2 ml Inhal Susp UD IH SCH (07:24)
[2017-06-22 07:26] VITALS: RESP 18; TEMP 98.3; O2SAT 97
[2017-06-22 07:40] VITALS: PULSE 68
[2017-06-22] MEDS: Pantoprazole 40 mg EC Tab PO SCH (08:07)
--- NOTE | 2017-06-22 09:14 | PN ---
DATE: 06/21/2017 SUBJECTIVE: The patient was seen this morning in room 561, bed 1 with no visitors present. She is awake, alert and clear in her usual self. I called the nurse. She told me that she is not able to go home today that her discharge is unsafe, she is not protected at home for her supplies are different and is arranging her care and she cannot leave the hospital. She tells me that the discharge today will be unsafe. I spoke with the case management and nurse practitioner on the floor. I also spoke with the patient about removing the Cota and central line. She wants the Cota to stay in place until she is home to avoid problems with urinary incontinence. If the catheter discontinued here, it should be discontinued here in the hospital and for transfer home. Medications were adjusted. I spoke to her that the importance of the new low-dose of medication and dangers involved in going back on the high dose of opioid analgesics and benzodiazepine as she had developed tolerance to and must go home on much lower doses as she has been here in the hospital. and discharge plans will be set for tomorrow. Tripp King MD
--- NOTE | 2017-06-22 10:29 | CP.PCM.PN ---
Subjective - Date & Time of Evaluation Date of Evaluation: 06/22/17 Time of Evaluation: 10:26 - Subjective Subjective: L TLC Objective - Vital Signs/Intake and Output Vital Signs (last 24 hours): Temp Pulse Resp BP Pulse Ox 98.3 F 68 18 99/59 L 97 06/22/17 07:00 06/22/17 07:00 06/22/17 07:00 06/22/17 07:00 06/22/17 07:00 Intake and Output: 06/22/17 06/22/17 06:59 18:59 Intake Total 640 Output Total 900 Balance -260 - Medications Medications: Current Medications Acetaminophen (Tylenol 650 Mg Supp) 650 mg RC Q6H PRN PRN Reason: Fever >100.4 F Last Admin: 06/13/17 21:40 Dose: 650 mg Acetaminophen (Tylenol 325mg Tab) 650 mg PO Q6H PRN PRN Reason: Headache Last Admin: 06/21/17 16:40 Dose: 650 mg Albuterol/Ipratropium (Duoneb 3 Mg/0.5 Mg (3 Ml) Ud) 3 ml IH [id number] [facility] Last Admin: 06/22/17 07:24 Dose: 3 ml Alprazolam (Xanax) 0.5 mg PO Q6 PRN; Protocol PRN Reason: Anxiety Last Admin: 06/22/17 02:51 Dose: 0.5 mg Benzocaine/Menthol (Cepacol Sore Throat) 1 mehran MT Q2H PRN PRN Reason: Sore Throat Last Admin: 06/22/17 02:53 Dose: 1 mehran Budesonide (Pulmicort Respules) 0.5 mg IH [id number] [facility] Last Admin: 06/22/17 07:24 Dose: 0.5 mg Furosemide (Lasix) 20 mg PO DAILY [facility] Last Admin: 06/21/17 10:38 Dose: 20 mg Gabapentin (Neurontin) 300 mg PO BID [facility] PRN Reason: Protocol Last Admin: 06/21/17 17:05 Dose: 300 mg Heparin Sodium (Porcine) (Heparin) 5,000 units SC Q12 [facility] PRN Reason: Protocol Last Admin: 06/21/17 22:33 Dose: Not Given Loperamide HCl (Imodium) 2 mg PO QID PRN PRN Reason: Diarrhea Methylprednisolone (Medrol) 8 mg PO BID [facility] Last Admin: 06/21/17 17:05 Dose: 8 mg Morphine Sulfate (Morphine Immediate Release Tab) 15 mg PO Q6 PRN PRN Reason: Pain, moderate (4-7) Last Admin: 06/22/17 00:20 Dose: 15 mg Nystatin (Nystatin Oral Susp) 5 ml PO QID [facility] Last Admin: 06/21/17 21:44 Dose: 5 ml Ondansetron HCl (Zofran Inj) 4 mg IVP Q6H PRN PRN Reason: Nausea/Vomiting Last Admin: 06/22/17 07:43 Dose: 4 mg Pantoprazole Sodium (Protonix Ec Tab) 40 mg PO ACB [facility] Last Admin: 06/22/17 08:07 Dose: 40 mg Paroxetine HCl (Paxil) 5 mg PO HS [facility] Last Admin: 06/21/17 21:44 Dose: 5 mg - Labs Labs: 06/21/17 05:55 06/16/17 06:30 PT 13.9 SECONDS (9.4-12.5) H 06/13/17 08:45 INR 1.20 (0.93-1.08) H 06/13/17 08:45 APTT 28.9 Seconds (25.1-36.5) 06/10/17 06:00 - Constitutional Appears: Non-toxic, No Acute Distress, Chronically Ill - Head Exam Head Exam: ATRAUMATIC - Eye Exam Eye Exam: EOMI, Normal appearance - ENT Exam ENT Exam: Normal Exam - Neck Exam Neck Exam: Full ROM, Normal Inspection - Respiratory Exam Respiratory Exam: NORMAL BREATHING PATTERN - Extremities Exam Extremities Exam: Full ROM - Neurological Exam Neurological Exam: Alert, Awake, CN II-XII Intact, Oriented x3 Neuro motor strength exam: Left Upper Extremity: 5, Right Upper Extremity: 4 ( deformity), Left Lower Extremity: 4, Right Lower Extremity: 4 - Psychiatric Exam Psychiatric exam: Normal Affect, Normal Mood - Skin Skin Exam: Dry, Normal Color, Warm Assessment and Plan - Assessment and Plan (Free Text) Assessment: L neck TLC Plan: Removal of L neck TLC. Pt tolerated procedure well. No bleeding, hematoma, purulent drainage or clots at the end of tip. Tip of catheter is intact.
[2017-06-22] MEDS: Furosemide 40 mg/5 mL Oral Soln UD PO SCH (11:32)
[2017-06-22 11:33] VITALS: BP 94/54
[2017-06-22] MEDS: Nystatin 100,000 Units/ml Oral Susp 5 ml UD PO SCH ×2 (11:37→13:23)
--- NOTE | 2017-06-22 11:50 | PN ---
DATE: 06/22/2017 SUBJECTIVE: The patient is in bed, in no acute distress, nontoxic. PHYSICAL EXAMINATION VITAL SIGNS: Temperature is 98, blood pressure is 100/50, respiratory rate of 16. HEENT: Unremarkable. NECK: Supple. LUNGS: Have decreased breath sounds. HEART: Normal S1 and S2. ABDOMEN: Soft, nontender. LABORATORY DATA: Reveals a white count of 13,000, hemoglobin of 9, platelets of 207. Chemistries reveals the creatinine is 0.7 and urinalysis is noted and sputum culture is Klebsiella species. Review of antibiotics reveals the patient has completed the antibiotic therapy, currently off of antibiotics. ASSESSMENT AND PLAN: This is a 66-year-old female status post sepsis with a right lower lobe healthcare-associated pneumonia with extended-spectrum beta-lactamase Klebsiella and a history of influenza A and history of Klebsiella urinary tract infection and right humeral closed fracture and congestive heart failure, alcoholic cardiomyopathy, diabetes mellitus, chronic obstructive lung disease, Hodgkin's lymphoma, currently off of antibiotics, afebrile. The patient is at very high risk of developing nosocomial infections. Daniel Byrd MD
--- NOTE | 2017-06-22 12:30 | PN ---
DATE: 06/22/2017 PULMONARY PROGRESS NOTE SUBJECTIVE: Patient was seen and examined at bedside. She is off oxygen. She is not complaining of shortness of breath. PHYSICAL EXAMINATION: GENERAL: She is awake, alert, no acute distress. HEAD, EYES, NOSE AND THROAT: Normocephalic and atraumatic. CARDIOVASCULAR: Regular rhythm. S1, S2. No gallop. PULMONARY: Diminished breath sounds at both lung bases. GASTROINTESTINAL: Soft and nontender. No organomegaly. EXTREMITIES: No clubbing, cyanosis or edema. SKIN: No acute skin rash. NEUROLOGIC: Limited at the present time. CLINICAL DATA: Chest x-ray shows improvement in pulmonary vascular congestion and no infiltrates. ASSESSMENT: 1. Status post respiratory failure. 2. Congestive heart failure. 3. Alcoholic cardiomyopathy. 4. Altered mental status, resolved. 5. Chronic obstructive pulmonary disease. PLAN: Patient is receiving bronchodilators. Will continue with current low-dose inhaler and oral steroids. Good progress is detected. We will follow phenrietta. Rylan Blackman MD
--- NOTE | 2017-06-23 14:48 | DS ---
HISTORY OF PRESENT ILLNESS: This is a 66-year-old woman with a long history of severe COPD, low ejection fraction of 15%, congestive heart failure, polysubstance use at home, who was found unresponsive, came to the emergency room, treated with Narcan, woke up a bit, became more lethargic and admitted to ICU on a BiPAP, her breathing assist. Over the course of following two days, she eventually awoke. She is quite honoring, comfortable. She was started on Paxil, initially 10 mg but then reduced to 5 mg, seen by psychiatrist, Dr. Leigh Ann Loco after initially refusing. The Paxil made a huge difference in patient 's disposition, her restlessness, agitation and anger has too subsided quite a bit. She is more conversant and amenable to our plans. We were able to eliminate the opiates completely from her medical regimen and drastically reduced the amount of benzodiazepines, she is taking. I hope she would come to Transitional Care Unit for short course of physical therapy and medication adjustment but she has declined, thinking that subacute rehab would be a better place for her. Patient blatantly refused to go to subacute rehab, so she continued her course of medication adjustment and acute care portion of the hospital, She was comfortable and ready to go home. Initially, she thought home was not safe. She needed supplies and equipment and for her to gather and finally that was done and today, 06/22/2017, she was ready for discharge to home. Prescriptions were written for low dose of alprazolam. There were no prescriptions for opiates. She will continue the Paxil. She was discharged home and to follow up with us in 1 week and call if there are any questions. FINAL DISCHARGE DIAGNOSES: 1. Accidental overdose of prescription medications, opiates and benzodiazepines. 2. Congestive heart failure with ejection fraction of 15%. 3. Dilated alcoholic cardiomyopathy. 4. Severe chronic obstructive pulmonary disease. 5. Chronic fracture of the right humerus with non-healing. 6. History of polysubstance use. 7. History of alcohol abuse. 8. Ongoing tobacco use disorder. Tripp King MD [facility] # [id number]
== END 2017-06-22 14:26 | disposition home health service (06) | DRG 917 ==
LOC: ED 05:16 → ERH 07:03 → UNDOADMIN 07:03 → ERH 08:39 → ICU 09:59 → 5RNO 06-14 18:17
PROVIDERS: ADMIT Internal Medicine; ATTEND Internal Medicine
PROC: 5A1935Z Respiratory Ventilation, Less than 24 Consecutive Hours (ICD-10-PCS; 2017-06-10)
PROC: 0BH17EZ Insertion of Endotracheal Airway into Trachea, Via Natural or Artificial Opening (ICD-10-PCS; 2017-06-10)
PROC: 5A09457 Assistance with Respiratory Ventilation, 24-96 Consecutive Hours, Continuous Positive Airway Pressure (ICD-10-PCS; 2017-06-10)
PROC: 3E0F7GC Introduction of Other Therapeutic Substance into Respiratory Tract, Via Natural or Artificial Opening (ICD-10-PCS; 2017-06-10)
PROC: 30233N1 Transfusion of Nonautologous Red Blood Cells into Peripheral Vein, Percutaneous Approach (ICD-10-PCS; 2017-06-10)
PROC: 05HM33Z Insertion of Infusion Device into Right Internal Jugular Vein, Percutaneous Approach (ICD-10-PCS; principal; 2017-06-11)
PROC: B543ZZA Ultrasonography of Right Jugular Veins, Guidance (ICD-10-PCS; 2017-06-11)
DX: T40.2X1A Poisoning by other opioids, accidental (unintentional), initial encounter (principal); J96.91 Respiratory failure, unspecified with hypoxia; J18.9 Pneumonia, unspecified organism; A41.9 Sepsis, unspecified organism; F11.20 Opioid dependence, uncomplicated; I42.6 Alcoholic cardiomyopathy; J44.1 Chronic obstructive pulmonary disease with (acute) exacerbation; E87.4 Mixed disorder of acid-base balance; I42.0 Dilated cardiomyopathy; R64 Cachexia; D69.3 Immune thrombocytopenic purpura; I50.20 Unspecified systolic (congestive) heart failure; J44.0 Chronic obstructive pulmonary disease with (acute) lower respiratory infection; D61.818 Other pancytopenia; M84.421A Pathological fracture, right humerus, initial encounter for fracture; Z68.1 Body mass index [BMI] 19.9 or less, adult; T42.4X1A Poisoning by benzodiazepines, accidental (unintentional), initial encounter; G89.29 Other chronic pain; D64.9 Anemia, unspecified; E11.9 Type 2 diabetes mellitus without complications; F06.4 Anxiety disorder due to known physiological condition; I11.0 Hypertensive heart disease with heart failure; E87.6 Hypokalemia; I25.118 Atherosclerotic heart disease of native coronary artery with other forms of angina pectoris; F10.20 Alcohol dependence, uncomplicated; R33.9 Retention of urine, unspecified; G47.00 Insomnia, unspecified; Y95 Nosocomial condition; I25.2 Old myocardial infarction; F17.210 Nicotine dependence, cigarettes, uncomplicated; Z85.72 Personal history of non-Hodgkin lymphomas; Z87.440 Personal history of urinary (tract) infections; Z87.01 Personal history of pneumonia (recurrent)

== ENCOUNTER 2017-06-26 07:46 | Emergency (ER) | payer MEDICARE, OTHER ==
[2017-06-26 07:47] VITALS: PULSE 150; BMI 15.3
[2017-06-26 08:32] VITALS: BP 141/71
[2017-06-26] MEDS ORDERED: Sodium Chloride 0.9% 1,000 ML IV SCH (09:00)
--- NOTE | 2017-06-26 09:04 | ED PDOC ---
Arrival/HPI <Felicia Chan - Last Filed: 06/26/17 11:46> <Pepe Ayon - Last Filed: 06/26/17 13:30> - General Chief Complaint: Shortness Of Breath Time Seen by Provider: 06/26/17 08:26 - History of Present Illness Narrative History of Present Illness (Text): 06/26/17 08:54 Patient is a 66 year old female with an extensive past medical history who presents to the Emergency department complaining of a painful sore in her mouth. Patient says she noticed the sore in her moutoh on of last week but it did not become painful until Sunday. Patient says since then she has not been able to eat anything. She went to her PMD who gave her nystatin and lidocaine swish & spit. Patient says the nystatin makes her nauseated but the lidocaine helps take the pain away, however, as soon as she tries to eat or drink the pain comes back. She admits to associated headache, as well as shortness of breath and nonproductive cough that she has had for quite some time. She denies sores on other areas of the body, fever, chills, dizziness, headache, changes in vision and hearing, sore throat, pain with swallowing, congestion, abdominal pain, N&V, diarrhea, and lower extremity pain/swelling. PMH: recent Klebsiella HCAP, recent flu, recent klebsiella UTI, chronic right humerous fracture, CHF of alcoholic cardiomyopathy, diabetes, COPD, Hodgkin lymphoma, and ITP (Felicia Chan) Past Medical History - Past History Past History: Non-Contributing - Infectious Disease Hx of Infectious Diseases: None - Tetanus Immunization Tetanus Immunization: Up to Date, Unknown - Reproductive Menopause: Yes - Cardiac Hx Cardiac Disorders: Yes Hx Congestive Heart Failure: Yes Hx Hypertension: Yes - Pulmonary Hx Chronic Obstructive Pulmonary Disease (COPD): Yes - Neurological Hx Neurological Disorder: Yes (syncope ams) Hx Dizziness: Yes - HEENT Hx HEENT Disorder: Yes (eyeglasses) Other/Comment: developes ulcers left eye on eye drops - Renal Hx Renal Disorder: No - Endocrine/Metabolic Hx Diabetes Mellitus Type 2: Yes - Hematological/Oncological Hx Blood Disorders: Yes Hx Anemia: Yes - Integumentary Other/Comment: Pressure wound - Musculoskeletal/Rheumatological Hx Back Pain: Yes Hx Falls: Yes Hx Fractures: Yes - Gastrointestinal Hx Gastrointestinal Disorders: Yes (weight loss appetite changes) - Genitourinary/Gynecological Hx Urinary Tract Infection: Yes - Psychiatric Hx Bipolar Disorder: Yes Hx Substance Use: No - Past Surgical History Past Surgical History: Non-Contributing - Surgical History Hx Mastectomy: No - Anesthesia Hx Anesthesia: Yes Hx Anesthesia Reactions: Yes (SEE ALLERGIES) Hx Malignant Hyperthermia: No - Suicidal Assessment Feels Threatened In Home Enviroment: No <Felicia Chan - Last Filed: 06/26/17 11:46> Family/Social History Family/Social History: Other (non contributory) Smoking Status: Smoker Currrent Status Unknown Hx Alcohol Use: Yes Amount per day: 3 Hx Substance Use: No Hx Substance Use Treatment: No <Felicia Chan - Last Filed: 06/26/17 11:46> Allergies/Home Meds <Felicia Chan - Last Filed: 06/26/17 11:46> <Pepe Ayon - Last Filed: 06/26/17 13:30> Allergies/Adverse Reactions: Allergies diphenhydramine HCl [From Benadryl] Allergy (Verified 05/23/17 14:14) SHORTNESS OF BREATH IV AND BLOOD PRESSURE LOW aspirin Adverse Reaction (Verified 05/23/17 14:14) SHORTNESS OF BREATH anesthesia Allergy (Intermediate, Uncoded 05/23/17 14:14) RASH anesthetic agents Allergy (Mild, Uncoded 05/23/17 14:14) ANAPHYLAXIS Pt states she went into Cardiac arrest from anesthetics Home Medications: Home Meds Medication Instructions Recorded Confirmed Alprazolam [Alprazolam Xr] 0.5 mg PO TID 06/26/17 06/26/17 Lidicaine2% 06/26/17 Nystatin [Mycostatin] 100,000 unit PO PRN 06/26/17 06/26/17 Ondansetron HCl [Zofran] 4 mg PO PRN PRN 06/26/17 06/26/17 Pantoprazole [Protonix] 40 mg PO DAILY 06/26/17 06/26/17 Paroxetine HCl [Paxil] 10 mg PO DAILY 06/26/17 06/26/17 Prednisone [[place]] 0 mg PO 06/26/17 Review of Systems - Physician Review All systems were reviewed & negative as marked: Yes (as per HPI) <Felicia Chan - Last Filed: 06/26/17 11:46> Physical Exam - Systems Exam Head: Present: Atraumatic, Normocephalic Pupils: Present: PERRL Extroacular Muscles: Present: EOMI Conjunctiva: Present: Normal Pharnyx: Present: Other (small apthous ulcer on right lateral tongue). No: ERYTHEMA, EXUDATE, TONSILS ENLARGED, Peritonsilar Swelling, Uvular Deviation, Muffled/Hoarse Voice, Strider, Soft Palate/Uvular Edema Nose (External): No: Lesions Nose (Internal): Present: Normal Inspection Neck: Present: Normal Range of Motion. No: Lymphadenopathy Respiratory/Chest: Present: Wheezes, Rales. No: Respiratory Distress, Accessory Muscle Use, Retracting, Rhonchi Cardiovascular: Present: Regular Rate and Rhythm, Normal S1, S2. No: Murmurs Abdomen: Present: Normal Bowel Sounds. No: Tenderness, Distention, Peritoneal Signs Upper Extremity: Present: Other (chronic right humeral fracture). No: Cyanosis , Edema Lower Extremity: Present: Normal Inspection. No: Edema, CALF TENDERNESS Neurological: Present: GCS=15, Speech Normal Skin: Present: Warm, Dry, Normal Color. No: Rashes Psychiatric: Present: Alert, Oriented x 3, Normal Insight, Normal Concentration <Felicia Chan - Last Filed: 06/26/17 11:46> Vital Signs Pulse Resp BP Pulse Ox 06/26/17 08:54 20 06/26/17 08:31 74 18 141/71 100 Medical Decision Making <Felicia Chan - Last Filed: 06/26/17 11:46> <Pepe Ayon - Last Filed: 06/26/17 13:30> ED Course and Treatment: Seen and examined with resident. 66 y/o F p/w sore on tongue, already on lidocaine swish and spit and orabase from PMD. While in ED, reported that she felt chest pressure x 5 days with dyspnea. Enzymes negative, ProBNP baseline, CXR no acute disease. (Pepe Ayon) - Lab Interpretations Lab Results: 06/26/17 09:00 06/26/17 10:20 Lab Results 06/26/17 11:00: Total Creatine Kinase 26 L, Troponin I 0.01 D 06/26/17 10:20: Sodium 143, Potassium 3.4 L, Chloride 109 H, Carbon Dioxide 19 L , Anion Gap 18, BUN 17, Creatinine 0.6 L, Est GFR ( Amer) > 60, Est GFR ( Non-Af Amer) > 60, Random Glucose 50 L, Calcium 8.3 L, Total Bilirubin 0.7, AST 18, ALT 25, Alkaline Phosphatase 76, NT-Pro-B Natriuret Pep 78124 H, Total Protein 5.6 L, Albumin 3.1, Globulin 2.6, Albumin/Globulin Ratio 1.2 06/26/17 09:00: WBC 10.1 D, RBC 3.52, Hgb 11.1 L, Hct 33.7 L, MCV 95.7, MCH 31.5, MCHC 32.9, RDW 17.8 H, Plt Count 203, MPV 9.6, Gran % 92.3 H, Lymph % ( Auto) 4.6 L, [place] % (Auto) 2.8, Eos % (Auto) 0.2 L, Baso % (Auto) 0.1, Gran # 9.36 H, Lymph # (Auto) 0.5 L, [place] # (Auto) 0.3, Eos # (Auto) 0.0, Baso # (Auto ) 0.01, Neutrophils % (Manual) 93 H, Lymphocytes % (Manual) 4 L, Monocytes % ( Manual) 3 - RAD Interpretation Radiology Orders: 06/26/17 11:49 CHEST PORTABLE [RAD] Stat - Medication Orders Current Medication Orders: Sodium Chloride (Sodium Chloride 0.9%) 1,000 mls @ 30 mls/hr IV .Q24H BELEM Last Admin: 06/26/17 11:01 Dose: 30 mls/hr eMAR Start Stop Document 06/26/17 11:01 SRE (Rec: 06/26/17 11:02 SRE [id number]) Intravenous Solution Start Date 06/26/17 Start Time 11:00 End Date 06/26/17 End time 12:00 Total Infusion Time 60 Discontinued Medications Acetaminophen (Tylenol 325mg Tab) 650 mg PO STAT STA Stop: 06/26/17 12:05 Last Admin: 06/26/17 12:21 Dose: 650 mg MAR Pain/Vitals Document 06/26/17 12:21 BAN (Rec: 06/26/17 12:22 BAN [id number]) Pain Reassessment Is This A Pain ReAssessment? No Sleep Is patient sleeping during reassessment? No Presence of Pain Presence of Pain Yes Ondansetron HCl (Zofran Inj) 4 mg IVP STAT STA Stop: 06/26/17 10:27 Last Admin: 06/26/17 10:31 Dose: 4 mg IVP Administration Document 06/26/17 10:31 SRE (Rec: 06/26/17 10:31 SRE [id number]) Charges for Administration # of IVP Administrations 1 - PA / NYLON WINDER / Resident Statement / has reviewed & agrees with the documentation as recorded. / has examined the patient and agrees with the treatment plan. <Felicia Chan - Last Filed: 06/26/17 11:46> Disposition/Present on Arrival - Present on Arrival History of DVT/PE: No History of Uncontrolled Diabetes: No Urinary Catheter: No History of Decub. Ulcer: No History Surgical Site Infection Following: None <Felicia Chan - Last Filed: 06/26/17 11:46> - Present on Arrival Any Indicators Present on Arrival: No - Disposition Have Diagnosis and Disposition been Completed?: Yes Disposition Time: 12:42 Patient Plan: Discharge <Pepe yAon - Last Filed: 06/26/17 13:30> - Disposition Diagnosis: Mouth sore, Anxiety Disposition: HOME/ ROUTINE Condition: STABLE Discharge Instructions (ExitCare): Mouth Sores Referrals: Tripp King MD [Primary Care Provider] - Follow up with primary Forms: [email or web address] (Croatian)
[2017-06-26 09:16] LABS: BASO # 0.01 K/mm3 (0.0-2.0); BASO % 0.1 % (0.0-3.0); EOS % 0.2 % (1.5-5.0); GRAN # 9.36 (1.4-6.5); GRAN % 92.3 % (50.0-68.0); HEMOGLOBIN 11.1 g/dL (12.0-16.0); LYMPH # 0.5 (1.2-3.4); LYMPH % 4.6 % (22.0-35.0); MEAN CELL VOLUME 95.7 fl (80.0-105.0); MEAN CORPUSCULAR HEMOGLOBIN 31.5 pg (25.0-35.0); MEAN CORPUSCULAR HGB CONC 32.9 g/dl (31.0-37.0); MEAN PLATELET VOLUME 9.6 fl (7.0-11.0); MONO # 0.3 (0.1-0.6); MONO % 2.8 % (1.0-6.0); PLATELET COUNT 203 10^3/uL (120.0-450.0); RBC 3.52 10^6/uL (3.5-6.1); RED CELL DISTRIBUTION WIDTH 17.8 % (11.5-14.5); WHITE BLOOD COUNT 10.1 10^3/ul (4.5-11.0)
[2017-06-26 10:16] LABS: LYMPHOCYTE 4 % (22.0-35.0); MONOCYTE 3 % (1.0-6.0); NEUTROPHIL 93 % (50.0-70.0)
[2017-06-26 10:47] LABS: ALB/GLOB RATIO 1.2 (1.1-1.8); ALBUMIN 3.1 g/dL (3.0-4.8); ALT/SGPT 25 U/L (7-56); AST/SGOT 18 U/L (14-36); BLOOD UREA NITROGEN 17 mg/dL (7-21); CALCIUM 8.3 mg/dL (8.4-10.5); GFR AFRICAN-AMERICAN > 60; GFR NON-AFRICAN AMERICAN > 60
[2017-06-26 11:10] LABS: B-TYPE NATRIURETIC PEPTIDE 37900 pg/mL (0-450)
[2017-06-26 12:23] LABS: TROPONIN I 0.01 ng/mL
--- NOTE | 2017-06-26 12:43 | RAD ---
HISTORY: dyspnea COMPARISON: 06/17/2017 FINDINGS: LUNGS: No active pulmonary disease. PLEURA: No significant pleural effusion identified, no pneumothorax apparent. CARDIOVASCULAR: Mild cardiomegaly OSSEOUS STRUCTURES: No significant abnormalities. VISUALIZED UPPER ABDOMEN: Normal. OTHER FINDINGS: None. IMPRESSION: No active disease.
[2017-06-26 15:03] VITALS: PULSE 76; RESP 18; TEMP 97.9; O2SAT 99
--- NOTE | 2017-06-27 12:58 | CARD ---
APPROVED REPORT EKG Measurement Heart [id number] NM [id number] <Conclusion> Sinus rhythm APC Left bundle branch block
== END 2017-06-26 15:05 | disposition home or self-care (01) ==
LOC: ED 07:46
DX: K13.79 Other lesions of oral mucosa (principal); F41.9 Anxiety disorder, unspecified; I10 Essential (primary) hypertension; E11.9 Type 2 diabetes mellitus without complications; F17.210 Nicotine dependence, cigarettes, uncomplicated
CPT/HCPCS: 71045; 80053; 82550; 83880; 84484; 85025; 93005; 96361; 96374; 99284; J2405; J7040

== ENCOUNTER 2017-08-03 20:34 | Inpatient (IN) | payer MEDICARE, OTHER ==
[2017-08-03 20:35] VITALS: PULSE 150
[2017-08-03 20:49] VITALS: BMI 15.7
--- NOTE | 2017-08-03 20:56 | ED PDOC ---
Arrival/HPI - General Chief Complaint: Trauma Time Seen by Provider: 08/03/17 20:36 Historian: Patient, Family - History of Present Illness Narrative History of Present Illness (Text): you were treated in the ED today for accidental fall/injury to the left hip with having to bend left lower leg for comfort but otherwise without any head injury/neck pain/loss of consciousness/nausea/vomiting/headache/dizziness/ difficulty breathing/chest pain/abdomen pain/numbness/tingling/pain with urination. Time/Duration: 1-3 hours Symptom Onset: Gradual Symptom Course: Unchanged Quality: Aching Severity Level: 3 Activities at Onset: Rest Context: Standing Past Medical History - Provider Review Nursing Documentation Reviewed: Yes - Travel History Have you recently traveled outside [place] w/in the past 3 mons?: No - Past History Past History: Non-Contributing - Infectious Disease Hx of Infectious Diseases: None - Tetanus Immunization Tetanus Immunization: Up to Date, Unknown - Cardiac Hx Cardiac Disorders: Yes Hx Congestive Heart Failure: Yes Hx Hypertension: Yes - Pulmonary Hx Chronic Obstructive Pulmonary Disease (COPD): Yes - Neurological Hx Neurological Disorder: Yes (syncope ams) Hx Dizziness: Yes - HEENT Hx HEENT Disorder: Yes (eyeglasses) Other/Comment: developes ulcers left eye on eye drops - Renal Hx Renal Disorder: No - Endocrine/Metabolic Hx Diabetes Mellitus Type 2: Yes - Hematological/Oncological Hx Blood Disorders: Yes Hx Anemia: Yes - Integumentary Other/Comment: Pressure wound - Musculoskeletal/Rheumatological Hx Back Pain: Yes Hx Falls: Yes Hx Fractures: Yes - Gastrointestinal Hx Gastrointestinal Disorders: Yes (weight loss appetite changes) - Genitourinary/Gynecological Hx Urinary Tract Infection: Yes - Psychiatric Hx Bipolar Disorder: Yes Hx Substance Use: No - Past Surgical History Past Surgical History: Non-Contributing - Surgical History Hx Mastectomy: No - Anesthesia Hx Anesthesia: Yes Hx Anesthesia Reactions: Yes (SEE ALLERGIES) Hx Malignant Hyperthermia: No - Suicidal Assessment Feels Threatened In Home Enviroment: No Family/Social History - Physician Review Nursing Documentation Reviewed: Yes Family/Social History: No Known Family HX Smoking Status: Smoker Currrent Status Unknown Hx Alcohol Use: Yes Amount per day: 3 Hx Substance Use: No Hx Substance Use Treatment: No Allergies/Home Meds Allergies/Adverse Reactions: Allergies diphenhydramine HCl [From Benadryl] Allergy (Verified 05/23/17 14:14) SHORTNESS OF BREATH IV AND BLOOD PRESSURE LOW aspirin Adverse Reaction (Verified 05/23/17 14:14) SHORTNESS OF BREATH anesthesia Allergy (Intermediate, Uncoded 05/23/17 14:14) RASH anesthetic agents Allergy (Mild, Uncoded 05/23/17 14:14) ANAPHYLAXIS Pt states she went into Cardiac arrest from anesthetics Home Medications: Home Meds Medication Instructions Recorded Confirmed Alprazolam [Alprazolam Xr] 0.5 mg PO TID 06/26/17 06/26/17 Lidicaine2% 06/26/17 Nystatin [Mycostatin] 100,000 unit PO PRN 06/26/17 06/26/17 Ondansetron HCl [Zofran] 4 mg PO PRN PRN 06/26/17 06/26/17 Pantoprazole [Protonix] 40 mg PO DAILY 06/26/17 06/26/17 Paroxetine HCl [Paxil] 10 mg PO DAILY 06/26/17 06/26/17 Prednisone [[place]] 0 mg PO 06/26/17 Review of Systems - Review of Systems Constitutional: Normal Eyes: Normal ENT: Normal Respiratory: Normal Cardiovascular: Normal Gastrointestinal: Normal Genitourinary Female: Normal Musculoskeletal: Arthralgias Neurological: Normal Endocrine: Normal Hemo/Lymphatic: Normal Psychiatric: Normal Physical Exam Vital Signs Pulse Resp BP Pulse Ox 08/04/17 02:02 77 18 115/59 L 96 Temperature: Afebrile Appearance: Positive for: Uncomfortable Pain Distress: None Mental Status: Positive for: Alert and Oriented X 3 - Systems Exam Head: Present: Atraumatic, Normocephalic Pupils: Present: PERRL Extroacular Muscles: Present: EOMI Conjunctiva: Present: Normal Ears: Present: Normal Mouth: Present: Moist Mucous Membranes Pharnyx: Present: Normal Nose (External): Present: Atraumatic Nose (Internal): Present: Normal Inspection Neck: Present: Normal Range of Motion, Other (no c-t-l spinal or paraspinal tenderness) Respiratory/Chest: Present: Clear to Auscultation, Good Air Exchange Cardiovascular: Present: Regular Rate and Rhythm Abdomen: No: Tenderness, Distention, Normal Bowel Sounds, Peritoneal Signs, Rebound, Guarding, McBurney's Point Tender, Rovsing's Sign Present, Hernias, Feeding Tubes, Ostomy Tubes, Mass/Organomegaly, Scars, Other Back: Present: Normal Inspection Upper Extremity: Present: Normal Inspection, Other (left upper extremity full range of motion/warm/sensation/pink/good radial pulse without any tenderness.) Lower Extremity: Present: Other (left hip mild discomfort with left lower leg bent and no other bony tenderness and otherwise warm/sensation/pink/good distal pulses) Neurological: Present: GCS=15, CN II-XII Intact, Speech Normal, Motor Func Grossly Intact Skin: Present: Warm, Normal Color Psychiatric: Present: Alert, Oriented x 3, Normal Insight, Normal Concentration Medical Decision Making ED Course and Treatment: you were treated in the ED today for accidental fall/injury to the left hip with having to bend left lower leg for comfort and secondarily with mild left shoulder discomfort but otherwise without any head injury/neck pain/loss of consciousness/nausea/vomiting/headache/dizziness/difficulty breathing/chest pain /abdomen pain/numbness/tingling/pain with urination. You were otherwise breathing easily, pink moist lips, talking easily with family, good strength/ sensation, alert/oriented, left upper extremity full range of motion/warm/ sensation/pink/good radial pulse without any tenderness, left hip mild discomfort with left lower leg bent and no other bony tenderness and otherwise warm/sensation/pink/good distal pulses, clear lungs, no abdomen tenderness, no spinal tenderness. tylenol refused. morphine/zofran. 08/03/17 20:56 left shoulder xray with degenerative findings. 08/03/2017 22:[address] FINDINGS: There are degenerative changes in the osseous structures. There is an acute fracture of the intertrochanteric region of the left femur. The femoral head/neck is rotated externally with respect to the distal shaft and there is impaction of the neck into the intertrochanteric region best seen on coronal image 71. The femoral head is well contained within the acetabulum and is not dislocated. There is decreased height and slight anterior wedging of the L4 vertebral body new from prior study consistent with mild compression fracture. There is slight 2 mm retropulsion of the superior body. IMPRESSION: Acute comminuted displaced fracture of the intertrochanteric region of the left femur. New L4 compression fracture. Dictator: Chayito Dorsey MD ECG: SR with PVCS, LBBB similar to 07/06/17. 08/03/17 23:[address] King. 08/03/17 23:[address] Falk orthopedics who stated bed-rest, gusman, npo at midnight, and patient stated her orthopedics physician is Dr. Harris and can consult Dr. Harris in the morning. 08/04/17 00:25 08/04/17 00:40 patient requested her daily prednisone 5mg, paxil 10mg, xanax 0.5mg to be given to her at this time. 08/04/17 01:40 wbc 11 hb 9 plts 240 ua negative 08/04/17 02:19 Dw medical representative team and who will admit at this time for Acute comminuted displaced fracture of the intertrochanteric region of the left femur. Reassessment Condition: Re-examined - Lab Interpretations Lab Results: 08/03/17 23:55 08/04/17 00:53 Lab Results 08/04/17 00:53: Blood Type Pending, Antibody Screen Pending, BBK History Checked Patient has bt 08/04/17 00:53: Sodium 140, Potassium 4.4, Chloride 108 H, Carbon Dioxide 22, Anion Gap 14, BUN 20, Creatinine 0.9, Est GFR ( Amer) > 60, Est GFR (Non- Af Amer) > 60, Random Glucose 88, Calcium 9.2, Total Bilirubin 0.3, AST 15, ALT 19, Alkaline Phosphatase 79, Total Protein 6.5, Albumin 3.7, Globulin 2.8, Albumin/Globulin Ratio 1.3 08/04/17 00:53: Urine Color Light yellow, Urine Appearance Clear, Urine pH 6.0, Ur Specific [place] 1.020, Urine Protein Negative, Urine Glucose (UA) Negative, Urine Ketones Negative, Urine Blood Negative, Urine Nitrate Negative, Urine Bilirubin Negative, Urine Urobilinogen 0.2, Ur Leukocyte Esterase Negative 08/03/17 23:55: PT 11.4, INR 1.00, APTT 31.0 08/03/17 23:55: WBC 11.0, RBC 2.76 L, Hgb 9.2 L, Hct 28.5 L, MCV 103.3 D, MCH 33.3, MCHC 32.3, RDW 18.8 H, Plt Count 240, MPV 9.7, Gran % 84.8 H, Lymph % ( Auto) 8.1 L, [place] % (Auto) 6.4 H, Eos % (Auto) 0.5 L, Baso % (Auto) 0.2, Gran # 9.37 H, Lymph # (Auto) 0.9 L, [place] # (Auto) 0.7 H, Eos # (Auto) 0.1, Baso # ( Auto) 0.02 I have reviewed the lab results: Yes - RAD Interpretation Radiology Orders: 08/03/17 20:50 SHOULDER LEFT [RAD] Stat 08/03/17 21:09 PELVIS W/O PO OR IV CONTRAST [CT] Stat Parking Supervisor: Radiologist (see mdm) - EKG Interpretation Interpreted by ED Physician: Yes (SR with PVCS, LBBB similar to 07/06/17.) Type: 12 lead EKG Comparison: Similar to previous EKG (06/26/17.) - Medication Orders Current Medication Orders: Sodium Chloride (Sodium Chloride 0.9%) 1,000 mls @ 75 mls/hr IV .[id number] BELEM Last Admin: 08/03/17 23:54 Dose: 75 mls/hr eMAR Start Stop Document 08/03/17 23:54 (Rec: 08/03/17 23:54 [facility]-[id number]) Intravenous Solution Start Date 08/03/17 Start Time 23:54 Discontinued Medications Acetaminophen (Tylenol 325mg Tab) 975 mg PO STAT STA Stop: 08/03/17 20:50 Last Admin: 08/03/17 21:00 Dose: Not Given Non-Admin Reason: Patient Refused Alprazolam (Xanax) 0.5 mg PO STAT STA PRN Reason: Protocol Stop: 08/04/17 00:40 Last Admin: 08/04/17 02:00 Dose: 0.5 mg Morphine Sulfate (Morphine) 4 mg IVP STAT STA Stop: 08/03/17 23:09 Last Admin: 08/03/17 23:53 Dose: 4 mg MAR Pain Assessment Document 08/03/17 23:53 (Rec: 08/03/17 23:54 [facility]-[id number]) Pain Reassessment Is this a pain reassessment? Yes Sleep Is patient sleeping during reassessment? No Presence of Pain Presence of Pain Yes Location Left, Right or Bilateral Left Pain Location Body Site Hip Description Intensity of Pain at present 10 IVP Administration Document 08/03/17 23:53 (Rec: 08/03/17 23:54 [id number] Charges for Administration # of IVP Administrations 1 Re-Assess: MAR Pain Assessment Document 08/04/17 00:53 (Rec: 08/04/17 02:04 [id number] Pain Reassessment Is this a pain reassessment? Yes Sleep Is patient sleeping during reassessment? Yes Ondansetron HCl (Zofran Inj) 4 mg IVP STAT STA Stop: 08/03/17 23:09 Last Admin: 08/03/17 23:54 Dose: 4 mg IVP Administration Document 08/03/17 23:54 (Rec: 08/03/17 23:54 [id number] Charges for Administration # of IVP Administrations 1 Paroxetine HCl (Paxil) 10 mg PO STAT STA Stop: 08/04/17 00:39 Last Admin: 08/04/17 02:00 Dose: 10 mg Prednisone (Prednisone Tab) 5 mg PO STAT STA Stop: 08/04/17 00:40 Last Admin: 08/04/17 02:00 Dose: 5 mg Disposition/Present on Arrival - Present on Arrival Any Indicators Present on Arrival: No History of DVT/PE: No History of Uncontrolled Diabetes: No Urinary Catheter: No History of Decub. Ulcer: No History Surgical Site Infection Following: None - Disposition Have Diagnosis and Disposition been Completed?: Yes Diagnosis: Intertrochanteric fracture of left femur, Lumbar compression fracture Disposition: HOSPITALIZED Disposition Time: 02:21 Patient Plan: Admission Condition: IMPROVED Forms: [employer] (Serbian)
[2017-08-03] MEDS ORDERED: Morphine 4 mg/ml ISec IVP STA (23:08)
[2017-08-03] MEDS: Sodium Chloride 0.9% 1,000 ML IV SCH (23:54)
[2017-08-04 00:05] LABS: BASO # 0.02 K/mm3 (0.0-2.0); BASO % 0.2 % (0.0-3.0); EOS # 0.1 (0.0-0.7); EOS % 0.5 % (1.5-5.0); GRAN # 9.37 (1.4-6.5); GRAN % 84.8 % (50.0-68.0); HEMOGLOBIN 9.2 g/dL (12.0-16.0); LYMPH # 0.9 (1.2-3.4); LYMPH % 8.1 % (22.0-35.0); MEAN CELL VOLUME 103.3 fl (80.0-105.0); MEAN CORPUSCULAR HEMOGLOBIN 33.3 pg (25.0-35.0); MEAN CORPUSCULAR HGB CONC 32.3 g/dl (31.0-37.0); MEAN PLATELET VOLUME 9.7 fl (7.0-11.0); MONO # 0.7 (0.1-0.6); MONO % 6.4 % (1.0-6.0); RBC 2.76 10^6/uL (3.5-6.1); RED CELL DISTRIBUTION WIDTH 18.8 % (11.5-14.5)
[2017-08-04 00:48] LABS: PROTHROMBIN TIME 11.4 SECONDS (9.4-12.5)
[2017-08-04 01:14] LABS: URINE BILIRUBIN NEGATIVE (NEGATIVE); URINE BLOOD NEGATIVE (NEGATIVE); URINE GLUCOSE (UA) NEGATIVE (NEGATIVE); URINE LEUKOCYTE ESTERASE NEGATIVE Leu/uL (NEGATIVE); URINE PROTEIN NEGATIVE mg/dL (<30 mg/dL); URINE UROBILINOGEN 0.2 E.U./dL (<1 E.U./dL)
[2017-08-04 01:16] LABS: URINE APPEARANCE CLEAR (CLEAR); URINE COLOR LIGHT YELLOW (YELLOW)
[2017-08-04 01:44] LABS: ALB/GLOB RATIO 1.3 (1.1-1.8); ALBUMIN 3.7 g/dL (3.0-4.8); ALT/SGPT 19 U/L (7-56); AST/SGOT 15 U/L (14-36); BLOOD UREA NITROGEN 20 mg/dL (7-21); CALCIUM 9.2 mg/dL (8.4-10.5); GFR AFRICAN-AMERICAN > 60; GFR NON-AFRICAN AMERICAN > 60
[2017-08-04] MEDS ORDERED: HYDROmorphone 0.5 mg/0.5 ml ISec IVP STA ×2 (03:58→05:42)
[2017-08-04] MEDS: Sodium Chloride 0.9% 1,000 ML IV SCH ×2 (04:10→18:25)
--- NOTE | 2017-08-04 04:56 | CP.PCM.HP ---
<Felicia Chan - Last Filed: 08/04/17 04:40> History of Present Illness - History of Present Illness History of Present Illness: HPI: Patient is a 66 year old female with a past medical history UC, COPD, CHF with EF 14.5%, alcohol abuse, DM, hepatitis, follicular lymphoma, ITP, depression, and cardiac arrest, who presents to the ED complaining of left hip pain after a fall at home, Patient says she got up from a chair and became dizzy , falling on her left side. She denies loss of consciousness. Patient had immediate pain in the left hip and could not move her leg due to pain. In the ED , patient was found to have intertrochanteric fracture of the left hip as well as L4 compression fracture. Patient denies headache, current dizziness, neck pain, chest pain, SOB, palpitations, abdominal pain, N&V, diarrhea, constipation , loss of bowel or bladder continence, numbness/tingling in the extremities, weakness, and dysuria. PMH: as above Meds: Prednisone 5 mg daily, paxil 10 mg daily, Xanax 0.5 mg PRN, protonix 40 mg , Zofran 4 mg PRN, Lasix 20 mg daily PSH: C section All: Anesthesia, Heparin, benadryl FH: mother with RA, father with lung and esophageal cancer, brother with lymphoma SH: former smoker 1 PPD x54 years (quit 6 months ago), former alcoholism (1 pint of nicanor daily, quit 6 months ago), denies elicit drugs Present on Admission - Present on Admission Any Indicators Present on Admission: No Review of Systems - Review of Systems All systems: reviewed and no additional remarkable complaints except (as per HPI ) Past Patient History - Infectious Disease Hx of Infectious Diseases: None - Tetanus Immunizations Tetanus Immunization: Up to Date, Unknown - Past Medical History & Family History Past Medical History?: Yes - Past Social History Smoking Status: Former Smoker - CARDIAC Hx Cardiac Disorders: Yes Hx Congestive Heart Failure: Yes Hx Hypertension: Yes - PULMONARY Hx Chronic Obstructive Pulmonary Disease (COPD): Yes - NEUROLOGICAL Hx Neurological Disorder: Yes (syncope ams) Hx Dizziness: Yes - HEENT Hx HEENT Problems: Yes (eyeglasses) Other/Comment: developes ulcers left eye on eye drops - RENAL Hx Chronic Kidney Disease: No - ENDOCRINE/METABOLIC Hx Diabetes Mellitus Type 2: Yes - HEMATOLOGICAL/ONCOLOGICAL Hx Blood Disorders: Yes Hx Anemia: Yes - INTEGUMENTARY Other/Comment: Pressure wound - MUSCULOSKELETAL/RHEUMATOLOGICAL Hx Back Pain: Yes Hx Falls: Yes Hx Fractures: Yes - GASTROINTESTINAL Hx Gastrointestinal Disorders: Yes (weight loss appetite changes) - GENITOURINARY/GYNECOLOGICAL Hx Urinary Tract Infection: Yes - PSYCHIATRIC Hx Bipolar Disorder: Yes - SURGICAL HISTORY Hx Mastectomy: No - ANESTHESIA Hx Anesthesia: Yes Hx Anesthesia Reactions: Yes (SEE ALLERGIES) Hx Malignant Hyperthermia: No Meds Allergies/Adverse Reactions: Allergies Allergy/AdvReac Type Severity Reaction Status Date / Time diphenhydramine HCl Allergy SHORTNESS Verified 08/04/17 03:43 [From Benadryl] OF BREATH aspirin AdvReac SHORTNESS Verified 08/04/17 03:43 OF BREATH anesthesia Allergy Intermediate RASH Uncoded 08/04/17 03:43 anesthetic agents Allergy Mild ANAPHYLAXIS Uncoded 08/04/17 03:43 Physical Exam - Constitutional Appears: Non-toxic, No Acute Distress - Head Exam Head Exam: ATRAUMATIC, NORMAL INSPECTION, NORMOCEPHALIC - Eye Exam Eye Exam: EOMI, Normal appearance, PERRL - ENT Exam ENT Exam: Mucous Membranes Moist, Normal Exam - Neck Exam Neck exam: Positive for: Normal Inspection. Negative for: Tenderness - Respiratory Exam Respiratory Exam: Clear to Auscultation Bilateral, NORMAL BREATHING PATTERN. absent: Accessory Muscle Use, Rales, Rhonchi, Wheezes, Respiratory Distress - Cardiovascular Exam Cardiovascular Exam: RRR, +S1, +S2. absent: Diastolic murmur, Gallop, Rubs, Systolic Murmur - GI/Abdominal Exam GI & Abdominal Exam: Normal Bowel Sounds, Soft. absent: Distended, Tenderness - Extremities Exam Extremities exam: Positive for: normal capillary refill, tenderness (left hip), pedal pulses present. Negative for: calf tenderness, full ROM (decreased at left hip due to pain), pedal edema - Back Exam Back exam: NORMAL INSPECTION. absent: paraspinal tenderness, vertebral tenderness - Neurological Exam Neurological exam: Alert, CN II-XII Intact, Oriented x3 - Psychiatric Exam Psychiatric exam: Normal Affect, Normal Mood - Skin Skin Exam: Dry, Intact, Normal Color, Warm Results - Vital Signs Recent Vital Signs: Last Vital Signs Temp 98.2 F 08/04/17 03:14 Pulse 64 08/04/17 03:14 Resp 18 06/16/18 03:14 BP 106/55 L 08/04/17 03:14 Pulse Ox 96 08/04/17 02:58 - Labs Result Diagrams: 08/03/17 23:55 08/04/17 00:53 Assessment & Plan - Assessment and Plan (Free Text) Assessment: Patient is a 66 year old female with a past medical history UC, COPD, CHF with EF 14.5%, alcohol abuse, DM, hepatitis, follicular lymphoma, ITP, depression, and cardiac arrest, who presents with left intertrochanteric fracture and L4 compression fracture Plan: Left hip fracture * Orthopedic surgery consulted (Dr. Harris) - help appreciated * f/u CXR * EKG NSR with LBBB and PVCs * coag studies WNL * f/u urine culture * gusman per Dr. Harris * Cardiology consulted (Eris) for risk stratification due to CHF with low EF * Shoulder XR: pending official read * Pelvis CT: pending official read * Morphine 2 mg IV Q4H PRN * Continue NS @75cc/g started in ED History of CHF * Continue lasix 20 mg QD (home med) * Cardiology consulted (Dr. Schulte) History of DM * Accuchecks ACHS * ISS low dose * f/u HbA1c Prophylaxis * hold heparin for possible procedure * SCDs * GI: on protonix at home, will continue <Venancio Justice - Last Filed: 08/04/17 06:10> Results - Vital Signs Recent Vital Signs: Last Vital Signs Temp 98.2 F 08/04/17 03:14 Pulse 64 08/04/17 03:14 Resp 18 08/04/17 03:14 BP 106/55 L 08/04/17 03:14 Pulse Ox 96 08/04/17 02:58 - Labs Result Diagrams: 08/03/17 23:55 08/04/17 00:53 Attending/Attestation - Attestation I have personally seen and examined this patient.: Yes I have fully participated in the care of the patient.: Yes I have reviewed all pertinent clinical information: Yes Notes (Text): 08/04/17 06:09 Patient was seen when she was in bed # 574-01. Agree with history , physical examination, assessment and plan.
[2017-08-04] MEDS: Pantoprazole 40 mg EC Tab PO SCH (06:02)
[2017-08-04 07:43] LABS: BASO # 0.02 K/mm3 (0.0-2.0); BASO % 0.2 % (0.0-3.0); EOS % 0.3 % (1.5-5.0); GRAN # 9.09 (1.4-6.5); GRAN % 87.4 % (50.0-68.0); HEMOGLOBIN 9.1 g/dL (12.0-16.0); LYMPH # 0.9 (1.2-3.4); LYMPH % 8.3 % (22.0-35.0); MEAN CELL VOLUME 105.9 fl (80.0-105.0); MEAN CORPUSCULAR HEMOGLOBIN 33.5 pg (25.0-35.0); MEAN CORPUSCULAR HGB CONC 31.6 g/dl (31.0-37.0); MEAN PLATELET VOLUME 9.5 fl (7.0-11.0); MONO # 0.4 (0.1-0.6); MONO % 3.8 % (1.0-6.0); RBC 2.72 10^6/uL (3.5-6.1); RED CELL DISTRIBUTION WIDTH 18.3 % (11.5-14.5); WHITE BLOOD COUNT 10.4 10^3/ul (4.5-11.0)
[2017-08-04 08:06] LABS: ALB/GLOB RATIO 1.3 (1.1-1.8); ALBUMIN 3.6 g/dL (3.0-4.8); ALT/SGPT 24 U/L (7-56); AST/SGOT 14 U/L (14-36); BLOOD UREA NITROGEN 18 mg/dL (7-21); CALCIUM 9.1 mg/dL (8.4-10.5); GFR AFRICAN-AMERICAN > 60; GFR NON-AFRICAN AMERICAN > 60
[2017-08-04] MEDS: Morphine 2 mg/ml ISec IVP PRN ×3 (08:12→18:37)
[2017-08-04] MEDS: Insulin Reg-LOW-Coverage SC SCH ×4 (08:30→21:30)
[2017-08-04] MEDS ORDERED: Albuterol-Ipratrop 3 mg / 0.5 (3 ml) UD IH PRN (09:39)
--- NOTE | 2017-08-04 10:40 | RAD ---
PROCEDURE: Radiographs of the Left Shoulder HISTORY: 66yoF, fall/injury left shoulder pain COMPARISON: No prior. FINDINGS: BONES: Normal. No fracture. JOINTS: Normal. Glenohumeral and acromioclavicular joints preserved. No osteoarthritis. SOFT TISSUES: Normal. OTHER FINDINGS: In situ left-sided subclavian MediPort IMPRESSION: No evidence of acute displaced fracture nor dislocation.
--- NOTE | 2017-08-04 11:50 | CT ---
PROCEDURE: CT Pelvis without contrast HISTORY: 66yoF, fall/injury/left hip pain/tenderness. COMPARISON: Comparison made with CT scan abdomen pelvis 02/11/2017. TECHNIQUE: Contiguous axial images of the pelvis . No intravenous or oral contrast given. Coronal and sagittal reformats generated. Radiation dose: Total exam DLP = 237.33 mGy-cm. This CT exam was performed using one or more of the following dose reduction techniques: Automated exposure control, adjustment of the mA and/or kV according to patient size, and/or use of iterative reconstruction technique. FINDINGS: BLADDER: Unremarkable. No mass. REPRODUCTIVE ORGANS: Unremarkable. VISUALIZED BOWEL: Unremarkable. PERITONEUM: Unremarkable, as visualized. No free fluid. No free air. LYMPH NODES: Unremarkable. No enlarged lymph nodes. BONES: There is an intertrochanteric fracture of the left hip with varus angulation deformity. . Left femoral head appears externally rotated. There appears to be impaction of the femoral neck into the greater trochanter. . . Anterior wedge compression fracture L4 segments of predominate involving the superior and to a lesser degree inferior endplates. This fracture appears chronic of although new since prior CT scan. PA degenerative spondylosis of the lower lumbar and sacral spine. VASCULATURE: Partially calcified atherosclerotic plaque changes distal abdominal aorta and iliac arteries OTHER FINDINGS: None. IMPRESSION: There is a a intertrochanteric fracture left hip with varus angulation deformity. The left femoral head is externally rotated with impaction of the femoral neck into the greater trochanter. Note preliminary report provided by overnight radiology service
--- NOTE | 2017-08-04 12:01 | CON ---
DATE: 08/04/2017 INPATIENT CONSULT REASON FOR CONSULT: Left intertrochanteric hip fracture. Consult is as follows; HISTORY OF PRESENT ILLNESS: This is a 66-year-old female with multiple medical problems including congestive heart failure, COPD with a prior history of a cardiac arrest, who presented status post fall with left hip pain and inability to ambulate. The patient denies any loss of consciousness. The patient denies any other injuries. She denies any numbness or tingling going down the legs. PHYSICAL EXAMINATION: GENERAL: This is a female, in no apparent distress. She is awake, alert and oriented x3. EXTREMITIES: Evaluation of left hip shows no gross deformity. Her thigh is soft and nontender. She does have pain with passive range of motion of the left hip. There is no obvious knee effusion. There is no gross knee instability. Her calf is soft and nontender. Neurovascularly, she is grossly intact with palpable DP pulse. CAT scan of the left hip is consistent with a left hip intertrochanteric fracture. IMPRESSION: Left hip fracture. PLAN: I had a lengthy discussion with the patient and her significant other, Nickolas and recommendations will be for open reduction and internal fixation of the left hip. Due to her extensive cardiac and pulmonary history, I did explain to her that she is at a high risk for perioperative complications. Dr. Schulte is her clearance representative and he will be in to evaluate her. We will plan on scheduling her for surgery pending cardiac and pulmonary clearance. For now, she can get DVT prophylaxis and we will follow. Pedro Harris MD
--- NOTE | 2017-08-04 14:12 | CARD ---
APPROVED REPORT EKG Measurement Heart [id number] ND [id number] <Conclusion> Sinus rhythm with APCs and PVCs Artifacts Left bundle branch block Abnormal ECG
[2017-08-04] MEDS: oxyCODONE 5 mg Immediate Release Tab PO PRN ×2 (16:10→23:07)
[2017-08-04] MEDS: Enoxaparin 40 mg Syringe SC SCH ×2 (18:24→18:26)
--- NOTE | 2017-08-04 21:52 | CON ---
DATE: 08/04/2017 CARDIOLOGY CONSULTATION HISTORY OF PRESENT ILLNESS: The patient is a 66-year-old woman well-known to me with a history of alcoholism, end-stage dilated cardiomyopathy, severe COPD, CAD, extensive cachexia, and anemia who presents with a left hip fracture. There was no loss of consciousness noted. The patient's past cardiac workup has included an echocardiogram which reveals an ejection fraction of less than 20%. There is mild pulmonary hypertension as well. PHYSICAL EXAMINATION: GENERAL: The patient is cachectic without angina, without shortness of breath. VITAL SIGNS: Blood pressure 100/55, the heart rates in the 60s NECK: Negative JVD. LUNGS: Decreased breath sounds. HEART: Reveals S1, S2. EXTREMITIES: No edema noted. LABORATORY DATA: EKG reveals sinus rhythm with a bundle-branch block. Hemoglobin is 9.1. Chemistries, BUN and creatinine unremarkable. Troponin was not drawn. IMPRESSION: 1. Hip fracture. 2. End-stage dilated cardiomyopathy. 3. Severe chronic obstructive pulmonary disease. 4. Coronary artery disease. 5. History of alcoholism. 6. Anemia. 7. Cachexia. Given these findings, given her cardiopulmonary disease, the patient is at high risk for any anesthesia and any surgical procedure. Risks, benefit analysis will need to be made by Surgery understanding her cardiac risk. Michael Schulte MD
--- NOTE | 2017-08-05 00:05 | PN ---
DATE: 08/04/2017 SUBJECTIVE: This is a 66-year-old woman who is known to me for many years, who came to the emergency room late-night hours on Sunday-Sunday after a fall at home. She sustained an intertrochanteric fracture of the left hip and was admitted. Unfortunately, I had become accidentally from my cellphone. So the emergency room was not able to reach me during midnight at 1 a.m. But when I called them back at 3 a.m., the patient had already been seen and admitted by the hospitalist as per hospital protocol. I saw the patient later and transferred to my service, when I spoke with the hospitalist in blueprint assembler hours, and I saw her this Sunday morning in room 574, bed 1. On physical exam, she is comfortable, awake, alert and in good spirits. Actually clinically she appeared much improved since her last hospital stay when she presented with altered mental status from accidental medication drug overdose. She has dramatically tapered her use of benzodiazepines, eliminated the opiates and is doing much better. Unfortunately, her underlying medical condition is still quite severe with severe COPD, tobacco use of until just recently, and cirrhosis and poor ejection fraction less than 15% for the last 4 years that I have known her. She is followed periodically during the hospital stay by Dr. Michael Schulte, her information technology technician. PHYSICAL EXAMINATION: HEENT: Head and neck are unremarkable. Conjunctivae pink. There was some temporalis wasting. Overall, body habitus was frail and thin. LUNGS: Showed decreased breath sounds with COPD with prolonged expiratory phase, but no rales or wheezes. HEART: Not tachycardic. ABDOMEN: Thin and soft. EXTREMITIES: Shows no edema. There is tenderness and pain on the left hip from the intertrochanteric fracture. IMPRESSION: 1. Fracture of the left hip. 2. Chronic obstructive pulmonary disease. 3. Congestive heart failure, low ejection fraction of 15%. 4. History of tobacco use. 5. Active tobacco use. 6. History of benzodiazepine use. 7. History of opiate use. 8. History of immune thrombocytopenic purpura with heparin. 9. History of alcohol abuse. 10. Depression. 11. Status post cardiac arrest with attempted surgical repair of the right humerus. 12. Chronic fracture, nonhealing, at the midshaft of the right humerus. 13. . 14. Severe alcoholic cardiomyopathy. 15. Alcoholic bone marrow suppression and chronic pain. 16. Hypertension. 17. Status post lymphoma. 18. History of pneumonia on several occasions. 19. History of recurrent urinary tract infections. PLAN: Orthopedic consultation with Dr. Harris has been called. I spoke with his nurse practitioner/PA at the bedside. Patient will need cardiac clearance before going to the OR. Obviously surgical repair will be a high risk because of the history of cardiac arrest during surgical procedure, and because of her underlying severity of multiple illnesses, COPD, low ejection fraction and CHF. At this point, surgery is essential and I do not think can be avoided. The patient is well aware of the complication with the case and potential risk of consequences. Tripp King MD
[2017-08-05] MEDS: Morphine 2 mg/ml ISec IVP PRN ×4 (00:54→23:41)
[2017-08-05] MEDS: oxyCODONE 5 mg Immediate Release Tab PO PRN ×3 (05:18→20:09)
[2017-08-05] MEDS: Pantoprazole 40 mg EC Tab PO SCH (05:19)
[2017-08-05] MEDS: Sodium Chloride 0.9% 1,000 ML IV SCH ×2 (05:20→05:21)
[2017-08-05] MEDS: Insulin Reg-LOW-Coverage SC SCH (07:59)
[2017-08-05] MEDS: Enoxaparin 40 mg Syringe SC SCH ×2 (09:43→09:50)
[2017-08-05 10:24] LABS: BASO # 0.02 K/mm3 (0.0-2.0); BASO % 0.2 % (0.0-3.0); GRAN # 7.94 (1.4-6.5); GRAN % 83.6 % (50.0-68.0); LYMPH # 0.5 (1.2-3.4); LYMPH % 4.7 % (22.0-35.0); MEAN CELL VOLUME 103.7 fl (80.0-105.0); MEAN CORPUSCULAR HEMOGLOBIN 33.6 pg (25.0-35.0); MEAN CORPUSCULAR HGB CONC 32.4 g/dl (31.0-37.0); MEAN PLATELET VOLUME 9.3 fl (7.0-11.0); MONO # 1.1 (0.1-0.6); MONO % 11.5 % (1.0-6.0); PLATELET COUNT 186 10^3/uL (120.0-450.0); RBC 2.68 10^6/uL (3.5-6.1); RED CELL DISTRIBUTION WIDTH 17.5 % (11.5-14.5); WHITE BLOOD COUNT 9.5 10^3/ul (4.5-11.0)
[2017-08-05 10:48] LABS: BLOOD UREA NITROGEN 15 mg/dL (7-21); CALCIUM 9.1 mg/dL (8.4-10.5); GFR AFRICAN-AMERICAN > 60; GFR NON-AFRICAN AMERICAN > 60
[2017-08-05 10:54] LABS: LYMPHOCYTE 5 % (22.0-35.0); MONOCYTE 9 % (1.0-6.0); NEUTROPHIL 86 % (50.0-70.0)
--- NOTE | 2017-08-05 15:34 | PN ---
DATE: 08/05/2017 SUBJECTIVE: The patient was seen this Sunday morning in room 574, bed 1, resting comfortably in bed. The left leg is withdrawn and externally rotated. There is pain with movement. She is taking her intravenous analgesics as well as some oral oxycodone with relief of the pain. She is not requesting increasing doses of analgesics. I spoke with the patient at length regarding the surgical risk as did her technician assistant, Dr. Schulte and orthopedist, Dr. Harris. The patient is aware of the surgical risk, but also feels strongly that this surgical intervention is necessary as there is no way conservative treatment with 2 months of immobilization would be reasonable for her. So surgery is scheduled for tomorrow morning. We will be following closely and at this point, she is medically optimized with a high risk for surery. Tripp King MD MTDJhonny
--- NOTE | 2017-08-05 16:04 | PN ---
DATE: 08/05/2017 CARDIOLOGY FOLLOWUP SUBJECTIVE: The patient is scheduled for repair of her hip fracture in the morning. The patient has anxiety, is awake without chest pain. PHYSICAL EXAMINATION: VITAL SIGNS: Blood pressure is 121/63, heart rates in the 70s. LUNGS: Decreased breath sounds. HEART: With S1, S2. EXTREMITIES: Without edema. LABORATORY DATA: Hemoglobin is 9. Chemistries, BUN and creatinine unremarkable. IMPRESSION: 1. Status post hip fracture secondary to fall. 2. 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 3. Severe chronic obstructive pulmonary disease. 4. Cachexia. 5. Coronary artery disease. PLAN: Given these findings, her cardiopulmonary status makes the patient at high risk for the surgery, the patient is aware. Risk-benefit analysis has been considered. The patient is scheduled for surgery in the morning. Michael Schulte MD
[2017-08-06] MEDS: Pantoprazole 40 mg EC Tab PO SCH (06:00)
[2017-08-06] MEDS ORDERED: Bupivacaine 0.5% Inj(30mL) ONE (07:24)
--- NOTE | 2017-08-06 09:43 | PCM.SURG1 ---
Surgeon's Initial Post Op Note - Surgeon's Notes Surgeon: Selam Harris MD Oxygen Furnace Operator: Phoebe Hutchison PA-C Type of Anesthesia: General Endo Anesthesia Administered By: Dr. Morse Pre-Operative Diagnosis: L intertroch fx Operative Findings: see full note Post-Operative Diagnosis: same Operation Performed: ORIF L hip fx Specimen/Specimens Removed: none Estimated Blood Loss: EBL {In ML}: 20 Blood Products Given: N/A Drains Used: No Drains Post-Op Condition: Fair Date of Surgery/Procedure: 08/06/17 Time of Surgery/Procedure: 09:42
--- NOTE | 2017-08-06 10:01 | RAD ---
PROCEDURE: Fluoroscopy up to 1 hour HISTORY: ORIF LT HIP COMPARISON: TECHNIQUE: 54 seconds of fluoro time were used. 4.1 4 mGy cumulative dose. Four images were submitted FINDINGS: The study shows a compression screw and kelsie in the left hip fixating an intertrochanteric fracture. There are no complicating factors IMPRESSION: As above
--- NOTE | 2017-08-06 10:03 | RAD ---
PROCEDURE: Left Hip and pelvis X-ray Radiographs. HISTORY: hip fx COMPARISON: None. FINDINGS: BONES: There is a displaced angulated intertrochanteric fracture of the left hip. The pelvis is unremarkable JOINTS: Normal. SOFT TISSUES: Normal. OTHER FINDINGS: None. IMPRESSION: There is a displaced angulated intertrochanteric fracture of the left hip. The pelvis is unremarkable
--- NOTE | 2017-08-06 10:33 | RAD ---
PROCEDURE: Left hip HISTORY: s/p ORIF L hip fx. Pt in PACU COMPARISON: TECHNIQUE: Single portable film FINDINGS: There is a compression screw and kelsie in the left hip fixating an intertrochanteric fracture. There is normal alignment. No complicating factors IMPRESSION: As above
--- NOTE | 2017-08-06 11:48 | PN ---
DATE: 08/06/2017 CARDIOLOGY FOLLOWUP SUBJECTIVE: The patient has tolerated her orthopedic surgery for her fractured hip. She is in the Recovery Room awake, alert. OBJECTIVE: VITAL SIGNS: Blood pressure is 130/50, the heart rate is in the 50s. NECK: Negative JVD. LUNGS: Decreased breath sounds. HEART: Reveal S1, S2. EXTREMITIES: Without edema. DATA: Hemoglobin is 9. BUN and creatinine unremarkable. IMPRESSION: 1. End-stage dilated cardiomyopathy. 2. Chronic obstructive pulmonary disease. 3. Coronary artery disease. 4. Status post hip fracture. 5. Status post fall. 6. History of alcoholism. Given these findings, the patient is hemodynamically stable. We will need to follow her hemoglobin carefully. Michael Schulte MD
[2017-08-06] MEDS: oxyCODONE 5 mg Immediate Release Tab PO PRN ×2 (14:10→21:58)
--- NOTE | 2017-08-06 15:11 | PN ---
DATE: 08/06/2017 DAILY PROGRESS NOTE The patient is a 66-year-old female with a history positive for COPD, congestive heart failure with an ejection fraction less than 20, history of alcohol abuse, diabetes mellitus, follicular lymphoma, depression, cardiac arrest, chronically fractured right humerus, with which she suffered cardiac arrest while induction to anesthesia for its repair many years ago. The patient suffered a mechanical fall, causing a left intertrochanteric fracture at home. She was admitted to the [facility] two days ago. She was evaluated by Dr. Schulte, her safety sealer and she was seen by Dr. Harris, the orthopedist. Earlier this morning, she was taken to the Operating Room where she underwent successful surgical repair of the left intertrochanteric fracture. When seen, the patient is already up in bed. Her significant other is at bedside. The patient is awake, alert and oriented and is feeling well. Her vital signs are stable. Blood pressure is 122/60, heart rate is 97 and she is afebrile at 97.6 degrees Fahrenheit. Her white blood cell count this morning is 7.5, hemoglobin and hematocrit are 9 and 27.8. She was found to have B-negative type blood. Sodium is 137, potassium is 4.3, blood urea nitrogen 15, creatinine 0.6. So, we will be following the patient's postop course. Hopefully, it will be uneventful. The patient was told to be increasing her activity and probably getting up and out of bed tomorrow. Baljeet King MD
[2017-08-06] MEDS: ceFAZolin 2 GM in Sodium Chloride 0.9% 100 ML IVPB SCH ×2 (17:37→23:44)
[2017-08-06] MEDS: Morphine 2 mg/ml ISec IVP PRN ×2 (20:03→23:44)
--- NOTE | 2017-08-06 20:33 | OP ---
PROCEDURE DATE: 08/06/2017 PREOPERATIVE DIAGNOSIS: Left hip intertrochanteric fracture. POSTOPERATIVE DIAGNOSIS: Left hip intertrochanteric fracture. PROCEDURE: Open reduction and internal fixation of left hip fracture. SURGEON: Pedro Harris MD RADIO TIME BUYER: Dr. Harris was assisted by Fide Reyes, the physician audiology assistant. Ms. Reyes was scrubbed and present throughout the entire case. ANESTHESIA: General. COMPLICATIONS: None. ESTIMATED BLOOD LOSS: 25 mL. IMPLANT: Biomet trochanteric entry hip nail. INDICATIONS FOR PROCEDURE: This is a 66-year-old female with multiple medical problems who presented status post fall with left hip pain. Clinical and radiographic examination was consistent with a left hip displaced intertrochanteric fracture. Recommendations were for open reduction and internal fixation of the fracture once the patient was medically optimized. The risks, benefits and alternatives of procedure were discussed with the patient as well as the patient's power of divorce attorney, and informed consent was obtained for the procedure. DESCRIPTION OF PROCEDURE: After the surgical site was signed and verified in the preoperative holding area, the patient was taken to the operating room and placed supine on the fracture table. After administration of general anesthesia, the patient received 2 g of Ancef IV, the patient's left lower extremity was positioned in the traction boot. The right lower extremity was gently flexed away from the operative field. Care was taken to make sure all bony prominences and nerves were well padded and protected, and the left lower extremity was prepped and draped in the usual sterile fashion. Using the C-arm image intensifier, closed reduction initially was performed and reduction was checked in both AP and lateral planes. Satisfied, an approximately 3 cm incision was made proximal to the tip of the greater trochanter. Soft tissue was dissected bluntly down to the tip of the trochanter and a guide pin for our entry hole was placed on the tip of the trochanter. Position of the pin was confirmed using an image intensifier in both the AP and lateral planes. Satisfied, the guide pin was inserted into the medullary canal of the proximal femur. Next, the step drill was used to drill the medullary canal of the proximal femur. The guide pin was exchanged for a smooth tip guidewire. Again, a reduction as well as the position of the guidewire was checked using image intensifier. Satisfied, the 17 cm nail was then inserted over the guidewire and recessed to the appropriate depth. The guidewire was then removed, and through a small incision on the lateral aspect of the proximal thigh, hip screw was then placed on the lateral cortex of the proximal femur. The guide pin for our hip screw was then inserted roughly in the center-center position of the femoral head. Satisfied with the position, the length of the screw was measured and the hole for our hip screw was then reamed appropriately. The appropriate length screw was then inserted over the guidewire and the guidewire removed. At this point, the reduction as well as the position of our hardware was checked using the image intensifier. Satisfied, the nail was locked to the hip screw by screwing down on the set screw on the proximal aspect of the nail. Finally, the nail was locked statically through a small incision on the mid portion of the thigh with an appropriate length screw. At this point, the outrigger jig was removed and final x-rays were taken confirming good position of the hardware and good fracture reduction. All the wounds were irrigated and closed in a layered fashion. A sterile dressing was applied and the patient was taken to the recovery room in stable condition. Pedro Harris MD
[2017-08-07] MEDS: Sodium Chloride 0.9% 1,000 ML IV SCH ×2 (04:44→13:27)
[2017-08-07] MEDS: Morphine 2 mg/ml ISec IVP PRN ×3 (04:44→19:55)
[2017-08-07] MEDS: Pantoprazole 40 mg EC Tab PO SCH (05:31)
[2017-08-07 07:30] LABS: BASO # 0.01 K/mm3 (0.0-2.0); BASO % 0.1 % (0.0-3.0); EOS % 0.4 % (1.5-5.0); GRAN # 5.54 (1.4-6.5); GRAN % 75.4 % (50.0-68.0); HEMOGLOBIN 7.8 g/dL (12.0-16.0); LYMPH # 0.7 (1.2-3.4); LYMPH % 9.6 % (22.0-35.0); MEAN CELL VOLUME 101.3 fl (80.0-105.0); MEAN CORPUSCULAR HEMOGLOBIN 33.8 pg (25.0-35.0); MEAN CORPUSCULAR HGB CONC 33.3 g/dl (31.0-37.0); MEAN PLATELET VOLUME 8.9 fl (7.0-11.0); MONO # 1.1 (0.1-0.6); MONO % 14.5 % (1.0-6.0); RBC 2.31 10^6/uL (3.5-6.1); RED CELL DISTRIBUTION WIDTH 16.8 % (11.5-14.5); WHITE BLOOD COUNT 7.4 10^3/ul (4.5-11.0)
[2017-08-07 07:47] LABS: BLOOD UREA NITROGEN 17 mg/dL (7-21); CALCIUM 8.6 mg/dL (8.4-10.5); GFR AFRICAN-AMERICAN > 60; GFR NON-AFRICAN AMERICAN > 60
[2017-08-07] MEDS: Enoxaparin 40 mg Syringe SC SCH ×2 (09:00→11:46)
--- NOTE | 2017-08-07 11:59 | CP.PCM.PN ---
Subjective - Date & Time of Evaluation Date of Evaluation: 08/07/17 Time of Evaluation: 11:53 - Subjective Subjective: Patient seen and examined at bedside with Dr. Harris. Patient POD#1, alert and awake sitting up in bed. Patient has been refusing her lovenox. Afebrile WBC 7.4 Hgb 7.8 L hip: dressings dry and intact. +AROM of foot and ankle. Sensation intact. Thigh and calf are soft and non-tender. NVI distally POD# s/p ORIF L hip fx Discussed with patient as well as her the need for the lovenox to prevent a blood clot. Patient understands and agrees to the lovenox at this time. Discussed with patient as well as her it would be beneficial for her to go to a subacute rehab facility Cont PT Cont DVT prophylaxis Cont pain control Dressing changes tomorrow Objective - Vital Signs/Intake and Output Vital Signs (last 24 hours): Temp Pulse Resp BP Pulse Ox 99.4 F 92 H 18 104/54 L 94 L 08/07/17 06:00 08/07/17 06:00 08/07/17 06:00 08/07/17 08:59 08/07/17 06:00 Intake and Output: 08/07/17 08/07/17 06:59 18:59 Intake Total 2145 Output Total 1300 Balance 845 - Medications Medications: Current Medications Acetaminophen (Tylenol 325mg Tab) 650 mg PO Q4H PRN PRN Reason: Pain, Mild (1-3) Last Admin: 08/05/17 21:52 Dose: 650 mg Albuterol/Ipratropium (Duoneb 3 Mg/0.5 Mg (3 Ml) Ud) 3 ml IH Q2H PRN PRN Reason: Shortness of Breath Alprazolam (Xanax) 0.5 mg PO TID PRN; Protocol PRN Reason: Anxiety Last Admin: 08/07/17 08:55 Dose: 0.5 mg Enoxaparin Sodium (Lovenox) 40 mg SC Q24H BELEM PRN Reason: Protocol Last Admin: 08/07/17 11:46 Dose: 40 mg Fentanyl (Fentanyl) 25 mcg IV Q5M PRN PRN Reason: Pain, moderate (4-7) Last Admin: 08/06/17 10:33 Dose: 25 mcg Furosemide (Lasix) 20 mg PO DAILY BELEM Last Admin: 08/07/17 08:59 Dose: 20 mg Sodium Chloride (Sodium Chloride 0.9%) 1,000 mls @ 75 mls/hr IV .[id number] [facility] Last Admin: 08/07/17 04:44 Dose: 75 mls/hr Morphine Sulfate (Morphine) 2 mg IVP Q4H PRN PRN Reason: Pain, severe (8-10) Last Admin: 08/07/17 11:47 Dose: 2 mg Ondansetron HCl (Zofran Tab) 4 mg PO Q6 PRN PRN Reason: Nausea/Vomiting Last Admin: 08/05/17 21:52 Dose: 4 mg Ondansetron HCl (Zofran Inj) 4 mg IVP ONCE PRN PRN Reason: Nausea/Vomiting Oxycodone HCl (Oxycodone Immediate Release Tab) 5 mg PO Q6H PRN PRN Reason: Pain, moderate (4-7) Last Admin: 08/06/17 21:58 Dose: 5 mg Pantoprazole Sodium (Protonix Ec Tab) 40 mg PO 0600 [facility] Last Admin: 08/07/17 05:31 Dose: 40 mg Paroxetine HCl (Paxil) 10 mg PO HS [facility] Last Admin: 08/06/17 21:49 Dose: 10 mg Prednisone (Prednisone Tab) 5 mg PO DAILY [facility] Last Admin: 08/07/17 08:59 Dose: 5 mg - Labs Labs: 08/07/17 07:00 08/07/17 07:00 PT 11.4 SECONDS (9.4-12.5) 08/03/17 23:55 INR 1.00 (0.93-1.08) 08/03/17 23:55 APTT 31.0 Seconds (25.1-36.5) 08/03/17 23:55
[2017-08-07] MEDS: oxyCODONE 5 mg Immediate Release Tab PO PRN ×2 (14:29→23:35)
--- NOTE | 2017-08-07 14:30 | PN ---
DATE: 08/07/2017 CARDIOLOGY FOLLOWUP SUBJECTIVE: The patient is without shortness of breath. OBJECTIVE: VITAL SIGNS: Blood pressure 113/56, heart rate is in the 80s. NECK: Negative JVD. LUNGS: Without rales. HEART: Reveal S1, S2. EXTREMITIES: Without edema. DATA: Hemoglobin is 7.8. Chemistries, BUN and creatinine unremarkable. IMPRESSION: 1. Status post surgery for hip fracture. 2. Status post fall. 3. End-stage dilated cardiomyopathy. 4. Severe chronic obstructive pulmonary disease. 5. Coronary artery disease. 6. History of alcoholism. Given these findings, the patient would benefit from packed red blood cells. We will give Lasix in between given her poor LV function. Michael Schulte MD
--- NOTE | 2017-08-08 00:42 | PN ---
DATE: 08/07/2017 SUBJECTIVE: The patient was seen this Sunday evening in room 574, bed 1 with her spouse equivalent, Nickolas at the bedside. She is in bed, awake, alert, clear, a bit ornery, but in good spirits. Her lungs show good aeration. Heart is regular and not tachycardic. I spoke with the patient at great length regarding the need for subacute rehab. Initially, she felt she did not need to go to rehab, would rather go home, but later agreed. She would prefer to go to [facility] or [facility] facility as they would be near home and easy for her life partner, spouse equivalent, to travel. When cleared by Orthopedics, she will be ready to go that would be in a day or two to either [facility] or [facility]. I will leave this note for Case Management and Tow Truck Dispatcher, so they may work in that direction. Tripp King MD MTDD
[2017-08-08] MEDS: Morphine 2 mg/ml ISec IVP PRN (03:00)
[2017-08-08] MEDS: Pantoprazole 40 mg EC Tab PO SCH (06:01)
[2017-08-08 07:16] LABS: BASO # 0.01 K/mm3 (0.0-2.0); BASO % 0.1 % (0.0-3.0); EOS % 0.2 % (1.5-5.0); GRAN # 7.59 (1.4-6.5); LYMPH # 0.6 (1.2-3.4); LYMPH % 6.2 % (22.0-35.0); MEAN CELL VOLUME 96.1 fl (80.0-105.0); MEAN CORPUSCULAR HEMOGLOBIN 32.7 pg (25.0-35.0); MEAN CORPUSCULAR HGB CONC 34.1 g/dl (31.0-37.0); MEAN PLATELET VOLUME 9.4 fl (7.0-11.0); MONO # 1.4 (0.1-0.6); MONO % 14.5 % (1.0-6.0); RBC 3.33 10^6/uL (3.5-6.1); RED CELL DISTRIBUTION WIDTH 18.4 % (11.5-14.5); WHITE BLOOD COUNT 9.6 10^3/ul (4.5-11.0)
[2017-08-08 07:21] LABS: HEMOGLOBIN 10.9 g/dL (12.0-16.0)
[2017-08-08 07:32] LABS: BLOOD UREA NITROGEN 14 mg/dL (7-21); CALCIUM 8.7 mg/dL (8.4-10.5); GFR AFRICAN-AMERICAN > 60; GFR NON-AFRICAN AMERICAN > 60
[2017-08-08] MEDS: Enoxaparin 40 mg Syringe SC SCH (07:37)
[2017-08-08 08:38] VITALS: RESP 18
[2017-08-08] MEDS ORDERED: Potassium Chloride 20 mEq ER Tab PO ONE (08:58)
[2017-08-08] MEDS ORDERED: Cholecalciferol 1,000 INTLU TAB PO SCH (10:00)
[2017-08-08] MEDS: oxyCODONE 5 mg Immediate Release Tab PO PRN ×2 (10:36→16:41)
--- NOTE | 2017-08-08 11:44 | PN ---
DATE: 08/08/2017 SUBJECTIVE: The patient is a 66-year-old female, who was admitted to the [facility] 4 days ago with a left intertrochanteric femur fracture. The patient was taken to the operating room by Dr. Harris and it was surgically repaired. The patient is known to have a past medical history positive for COPD, congestive heart failure with an ejection fraction less than 20%, history of alcohol abuse, diabetes mellitus, follicular lymphoma, depression, status post cardiac arrest and a chronically fractured right humerus. The patient was evaluated by Dr. Schulte prior to surgery and since. When seen today, the patient is awake, alert and oriented. Her significant other is at bedside. The patient seems to be upset in that she feels things are moving along too fast. She would rather stay in the [facility] for a few more days prior to transfer to a subacute rehab facility; however, I explained to her that that would not be possible and it would be so much better for her to begin physical therapy as soon as possible after surgical repair of the hip fracture. The patient also insists on keeping the Cota catheter in place. She is afraid of feeling incontinent without it and especially with her inability to get to a bathroom in time. During the hospital stay, the first day postoperatively, her hemoglobin and hematocrit were depressed. The patient received 2 units of packed red blood cells and hemoglobin has been stable since. This morning's hemoglobin is 10.9, hematocrit is 32. She is afebrile. Blood pressure is 105/50, heart rate is 90. Serum chemistries are unremarkable. A slightly depressed potassium of 3.3 is being supplemented. So the patient required some encouraging language today to help her accept going to [facility] for physical therapy. I would compromise with her and allow the Cota catheter to remain in attached to a leg bag. If a bed becomes available, the patient will be transferred. Baljeet King MD
--- NOTE | 2017-08-08 14:36 | PN ---
DATE: 08/08/2017 CARDIOLOGY FOLLOWUP PHYSICAL EXAMINATION: VITAL SIGNS: 114/57, heart rate is in the 90s. NECK: Negative JVD. LUNGS: Without rales. HEART: Reveals S1, S2. EXTREMITIES: Without edema. LABORATORY DATA: Hemoglobin is 10.9 post transfusion. BUN and creatinine are unremarkable. IMPRESSION: 1. Stable post hip surgery. 2. Status post fall with a hip fracture. 3. End-stage dilated cardiomyopathy. 4. Coronary artery disease. 5. Chronic obstructive pulmonary disease. 6. Anemia is improved after transfusions. PLAN: Given these findings, the patient is doing well hemodynamically post surgery. The patient is stable for transfer to a subacute rehab. Michael Schulte MD
[2017-08-08 15:03] VITALS: PULSE 96; TEMP 98.9; O2SAT 94
[2017-08-08 19:56] VITALS: BP 91/53
--- NOTE | 2017-08-09 08:07 | PQF ---
CDI RESPONSE TEXT: Response to inquiry: Anemia with a hbg drop to 7.8 is acute due to fracture left hip and post op blood loss. CDI QUERY TEXT: Anemia Type Anemia is documented in the Medical Record. Please specify the cause (includes suspected or probable cause) Such as: -- Due to acute blood loss -- Due to chronic blood loss -- Due to iron deficiency -- Due to postoperative blood loss -- Due to chronic disease -- Other, please specify The patient's Clinical Indicators include: Patient admitted with H/H 9.2/28.5. She is post-op left hip ORIF with H/H today down to 7.8/23.4. To be transfused. Could you please provide specificity for type/acuity of anemia? Query created by: Eileen Castillo on 08/07/2017 11:09 AM Electronically signed by: Tripp King MD 08/09/2017 8:04 AM
== END 2017-08-08 21:46 | DRG 481 ==
LOC: ED 20:34 → ERH 08-04 02:17 → 5RSO 08-04 03:42
PROVIDERS: ADMIT Internal Medicine; ATTEND Internal Medicine
PROC: 0QS704Z Reposition Left Upper Femur with Internal Fixation Device, Open Approach (ICD-10-PCS; principal; 2017-08-06 07:30)
PROC: 30233N1 Transfusion of Nonautologous Red Blood Cells into Peripheral Vein, Percutaneous Approach (ICD-10-PCS; 2017-08-07)
DX: S72.142A Displaced intertrochanteric fracture of left femur, initial encounter for closed fracture (principal); R64 Cachexia; I42.0 Dilated cardiomyopathy; I42.6 Alcoholic cardiomyopathy; D69.3 Immune thrombocytopenic purpura; D62 Acute posthemorrhagic anemia; Z68.1 Body mass index [BMI] 19.9 or less, adult; J44.9 Chronic obstructive pulmonary disease, unspecified; I50.9 Heart failure, unspecified; I11.0 Hypertensive heart disease with heart failure; I25.10 Atherosclerotic heart disease of native coronary artery without angina pectoris; D64.9 Anemia, unspecified; I27.20 Pulmonary hypertension, unspecified; F41.9 Anxiety disorder, unspecified; F31.9 Bipolar disorder, unspecified; F10.20 Alcohol dependence, uncomplicated; E11.9 Type 2 diabetes mellitus without complications; W18.30XA Fall on same level, unspecified, initial encounter; Y92.009 Unspecified place in unspecified non-institutional (private) residence as the place of occurrence of the external cause; Z86.74 Personal history of sudden cardiac arrest; Z87.440 Personal history of urinary (tract) infections

== ENCOUNTER 2017-11-07 11:22 | Emergency (ER) | payer MEDICARE, OTHER ==
[2017-11-07 11:22] VITALS: PULSE 150; BMI 15.7
[2017-11-07 12:00] VITALS: RESP 16; TEMP 99
--- NOTE | 2017-11-07 12:31 | ED PDOC ---
Arrival/HPI - General Time Seen by Provider: 11/07/17 12:01 Historian: Patient - History of Present Illness Narrative History of Present Illness (Text): 11/07/17 12:21 67 year old female whose past medical history includes humeral fracture(6 years ago), follicular lymphoma(2007), and left hip replacement(2 months ago), who presents to the emergency department complaining of dizziness and increased urinary frequency. Patient reports that her symptoms started 4 days ago and is also experiencing urinary incontinence. She is requesting a Cota catheter because of her increased urinary frequency. Patient denies currently taking chemotherapy, and notes that she can't take aspirin or heparin. She admits to having decreased appetite and abdominal pain. Patient uses a walker to walk and notes losing approximately 40lb this year. She is complaint with her medications. Patient denies fevers, chills, cough, shortness of breath, chest pain, dyspnea on exertion, nausea, vomiting, diarrhea, neck/back pain, headache , dizziness, or any other complaint. Of note patient is present with . Orthopedist: PMD: Time/Duration: < week Symptom Course: Unchanged Activities at Onset: Rest Context: Home Past Medical History - Provider Review Nursing Documentation Reviewed: Yes - Past History Past History: Non-Contributing - Infectious Disease Hx of Infectious Diseases: None - Tetanus Immunization Tetanus Immunization: Up to Date, Unknown - Cardiac Hx Cardiac Disorders: Yes Hx Congestive Heart Failure: Yes Hx Hypertension: Yes - Pulmonary Hx Chronic Obstructive Pulmonary Disease (COPD): Yes - Neurological Hx Neurological Disorder: Yes (syncope ams) Hx Dizziness: Yes - HEENT Hx HEENT Disorder: Yes (eyeglasses) Other/Comment: developes ulcers left eye on eye drops - Renal Hx Renal Disorder: No - Endocrine/Metabolic Hx Diabetes Mellitus Type 2: Yes - Hematological/Oncological Hx Blood Transfusions: Yes Hx Blood Transfusion Reaction: No - Integumentary Other/Comment: Pressure wound - Musculoskeletal/Rheumatological Hx Back Pain: Yes Hx Falls: Yes Hx Fractures: Yes - Gastrointestinal Hx Gastrointestinal Disorders: Yes (weight loss appetite changes) - Genitourinary/Gynecological Hx Urinary Tract Infection: Yes - Psychiatric Hx Bipolar Disorder: Yes Hx Substance Use: No - Past Surgical History Past Surgical History: Non-Contributing - Surgical History Hx Mastectomy: No - Anesthesia Hx Anesthesia Reactions: Yes (coded) Hx Malignant Hyperthermia: No - Suicidal Assessment Feels Threatened In Home Enviroment: No Family/Social History - Physician Review Nursing Documentation Reviewed: Yes Family/Social History: No Known Family HX Smoking Status: Former Smoker Hx Alcohol Use: Yes Amount per day: 3 Hx Substance Use: No Hx Substance Use Treatment: No Allergies/Home Meds Allergies/Adverse Reactions: Allergies diphenhydramine HCl [From Benadryl] Allergy (Verified 08/04/17 03:43) SHORTNESS OF BREATH IV AND BLOOD PRESSURE LOW heparin Allergy (Verified 11/07/17 12:50) RASH aspirin Adverse Reaction (Verified 08/04/17 03:43) SHORTNESS OF BREATH anesthesia Allergy (Intermediate, Uncoded 08/04/17 03:43) RASH anesthetic agents Allergy (Mild, Uncoded 08/04/17 03:43) ANAPHYLAXIS Pt states she went into Cardiac arrest from anesthetics Home Medications: Home Meds Medication Instructions Recorded Confirmed Alprazolam [Alprazolam Xr] 0.5 mg PO TID 06/26/17 08/04/17 Nystatin [Mycostatin] 100,000 unit PO PRN 06/26/17 08/04/17 Ondansetron HCl [Zofran] 4 mg PO PRN PRN 06/26/17 08/04/17 Pantoprazole [Protonix EC Tab] 40 mg PO DAILY 06/26/17 08/04/17 Paroxetine HCl [Paxil] 10 mg PO DAILY 06/26/17 08/04/17 Review of Systems - Physician Review All systems were reviewed & negative as marked: Yes - Review of Systems Constitutional: absent: Fevers, Other (chills) Respiratory: absent: SOB, Cough Cardiovascular: absent: Chest Pain, RILEY Gastrointestinal: Abdominal Pain, Appetite Changes. absent: Nausea, Vomiting Genitourinary Female: Frequency, Other (urinary incontinence) Musculoskeletal: absent: Back Pain, Neck Pain Neurological: Dizziness. absent: Headache Physical Exam Vital Signs Reviewed: Yes Vital Signs Temp Pulse Resp BP Pulse Ox 11/07/17 19:00 66 16 125/59 L 96 11/07/17 17:00 68 16 119/61 95 11/07/17 15:00 67 17 119/58 L 95 11/07/17 11:59 99.0 F 69 16 107/62 96 Temperature: Afebrile Blood Pressure: Normal Pulse: Regular Respiratory Rate: Normal Appearance: Positive for: Cachectic Mental Status: Positive for: Alert and Oriented X 3 - Systems Exam Head: Present: Atraumatic, Normocephalic Pupils: Present: PERRL Extroacular Muscles: Present: EOMI Conjunctiva: Present: Normal Mouth: Present: Dry Neck: Present: Normal Range of Motion Respiratory/Chest: Present: Clear to Auscultation, Good Air Exchange. No: Respiratory Distress, Accessory Muscle Use Cardiovascular: Present: Regular Rate and Rhythm, Normal S1, S2. No: Murmurs Abdomen: Present: Tenderness (Bilateral lower abdominal tenderness). No: Distention, Peritoneal Signs, Rebound, Guarding Back: Present: Normal Inspection Upper Extremity: Present: Deformity (Gross deformity of right upper extremity). No: Cyanosis, Edema Lower Extremity: Present: Tenderness (Tenderness to palpation of left hip). No : Edema Neurological: Present: GCS=15, CN II-XII Intact, Speech Normal Skin: Present: Warm, Dry, Normal Color. No: Rashes Psychiatric: Present: Alert, Oriented x 3, Normal Insight, Normal Concentration Medical Decision Making ED Course and Treatment: 11/07/17 12:21 Impression: 67 year old female complaining of 4 days of dizziness, increased urinary frequency, and urinary incontinence. Differential Diagnosis included but are not limited to: UTI PNA ACS colitis dementia Plan: -- Abdominal and Pelvic CT with IV contrast -- Head CT without Contrast -- EKG -- Labs -- cardiac enzmes -- Blood work -- Blood and Urine culture -- IV fluids -- Urinalysis -- Reassess and disposition Prior Visits: Notes and results from previous visits were reviewed. Progress Notes: 11/07/17 15:[address] and adamantly requesting pain medication. Percocet ordered. 11/07/17 16:33 EKG refused by patient. UA reveals findings consistent with UTI. Patient desires to go home. Scripts provided. Patient advised to follow up with her PCP in 1-2 days. 11/07/17 18:14 Patient adamantly refusing to leave Emergency department although she requested ambulance transport earlier. She is refusing to leave unless she has Cota Catheter placed and receives pain medication. Call placed to . 11/07/17 18:21 Discussed case with , who is aware of patient and is fine with patient being discharged. wants Cota placed and pain medication given. - Lab Interpretations Lab Results: 11/07/17 13:30 11/07/17 13:30 Lab Results 11/07/17 14:40: Urine Color Yellow, Urine Appearance Clear, Urine pH 6.0, Ur Specific Gower 1.020, Urine Protein Trace H, Urine Glucose (UA) Negative, Urine Ketones Trace H, Urine Blood Negative, Urine Nitrate Positive H, Urine Bilirubin Negative, Urine Urobilinogen 0.2, Ur Leukocyte Esterase Trace H, Urine RBC 0 - 2, Urine WBC 2 - 5, Ur Epithelial Cells 4 - 5, Urine Bacteria Large, Urine Other Uyeast 11/07/17 13:30: pO2 42, VBG pH 7.32, VBG pCO2 45.0, VBG HCO3 23.2, VBG Total CO2 24.6, VBG O2 Sat (Calc) 74.1 H, VBG Base Excess -3.1 L, VBG Potassium 4.5, Sodium 139.0, Chloride 112.0 H, Glucose 86, Lactate 0.8, FiO2 21.0, Venous Blood Potassium 4.5 11/07/17 13:30: Sodium 140, Chloride 111 H, Potassium 4.4, Carbon Dioxide 21, Anion Gap 12, BUN 21, Creatinine 0.8, Est GFR ( Amer) > 60, Est GFR (Non- Af Amer) > 60, Random Glucose 89, Calcium 9.3, Total Bilirubin 0.6, AST 15, ALT 17, Alkaline Phosphatase 98, Troponin I 0.02 D, Total Protein 6.4, Albumin 3.5 , Globulin 2.9, Albumin/Globulin Ratio 1.2, Lipase 17 L 11/07/17 13:30: PT 13.1 H, INR 1.14, APTT 33.5 11/07/17 13:30: WBC 6.5 D, RBC 3.10 L, Hgb 10.2 L, Hct 31.5 L, MCV 101.6 D, MCH 32.9, MCHC 32.4, RDW 13.9, Plt Count 135, MPV 9.2, Gran % 79.0 H, Lymph % ( Auto) 10.5 L, [place] % (Auto) 9.7 H, Eos % (Auto) 0.5 L, Baso % (Auto) 0.3, Gran # 5.12, Lymph # (Auto) 0.7 L, [place] # (Auto) 0.6, Eos # (Auto) 0.0, Baso # (Auto ) 0.02 I have reviewed the lab results: Yes - RAD Interpretation Radiology Orders: 11/07/17 13:05 CHEST PORTABLE [RAD] Stat - Medication Orders Current Medication Orders: Discontinued Medications Sodium Chloride (Sodium Chloride 0.9%) 1,000 mls @ 999 mls/hr IV .Q1H1M STA Stop: 11/07/17 14:06 Last Admin: 11/07/17 13:19 Dose: 999 mls/hr eMAR Start Stop Document 11/07/17 13:19 MATHEUS (Rec: 11/07/17 13:24 MATHEUS [id number]) Intravenous Solution Start Date 11/07/17 Start Time 13:20 End Date 11/07/17 End time 14:20 Total Infusion Time 60 Sodium Chloride (Sodium Chloride 0.9%) 1,000 mls @ 999 mls/hr IV .Q1H1M STA Stop: 11/07/17 15:45 Last Admin: 11/07/17 15:25 Dose: 999 mls/hr eMAR Start Stop Document 11/07/17 15:25 MATHEUS (Rec: 11/07/17 15:25 MATHEUS [id number]) Intravenous Solution Start Date 11/07/17 Start Time 15:25 End Date 11/07/17 End time 16:25 Total Infusion Time 60 Ceftriaxone Sodium (Rocephin 1 Gram Ivpb) 1 gm in 100 mls @ 100 mls/hr IVPB STAT STA PRN Reason: Protocol Stop: 11/07/17 16:30 Last Admin: 11/07/17 15:46 Dose: 100 mls/hr eMAR Start Stop Document 11/07/17 15:46 MATHEUS (Rec: 11/07/17 15:47 MATHEUS [id number]) Intravenous Solution Start Date 11/07/17 Start Time 15:47 End Date 11/07/17 End time 16:17 Total Infusion Time 30 Oxycodone/Acetaminophen (Percocet 5/325 Mg Tab) 1 tab PO STAT STA Stop: 11/07/17 14:47 Last Admin: 11/07/17 15:24 Dose: 1 tab MAR Pain Assessment Document 11/07/17 15:24 MATHEUS (Rec: 11/07/17 15:25 MATHEUS [id number]) Pain Reassessment Is this a pain reassessment? Yes Presence of Pain Presence of Pain Yes Pain Scale Used Pain Scale Used Numeric Location Pain Location Body Site Abdomen Description Description Constant Intensity of Pain at present 10 - Scribe Statement The provider has reviewed the documentation as recorded by the Scribe Yannick Anabeto Provider Scribe Attestation: All medical record entries made by the Scribe were at my direction and personally dictated by me. I have reviewed the chart and agree that the record accurately reflects my personal performance of the history, physical exam, medical decision making, and the department course for this patient. I have also personally directed, reviewed, and agree with the discharge instructions and disposition. Disposition/Present on Arrival - Present on Arrival Any Indicators Present on Arrival: No History of DVT/PE: No History of Uncontrolled Diabetes: No Urinary Catheter: No History Surgical Site Infection Following: Orthopedic Procedures - Disposition Have Diagnosis and Disposition been Completed?: Yes Diagnosis: UTI (urinary tract infection) Disposition: HOME/ ROUTINE Disposition Time: 16:31 Patient Plan: Discharge Patient Problems: Current Active Problems Problem Status Onset UTI (urinary tract infection) Acute Condition: STABLE Discharge Instructions (ExitCare): Urinary Tract Infection, Adult (DC) Prescriptions: Cephalexin [cephalexin] 500 mg PO BID 5 Days #10 cap oxyCODONE/Acetaminophen [Percocet 5/325 mg Tab] 1 ea PO PRN PRN 1 Days #4 tab PRN Reason: Pain, Severe (8-10) Referrals: Tripp King MD [Staff Provider] - Follow up with primary Forms: Appear Here (Thai)
[2017-11-07] MEDS ORDERED: Sodium Chloride 0.9% 1,000 ML IV STA ×2 (13:06→14:45)
[2017-11-07] MEDS ORDERED: Iohexol 300 100 ML IJ ONE (13:16)
[2017-11-07 13:54] LABS: VENOUS BLOOD GAS BASE EXCESS -3.1 mmol/L (0.0-2.0); VENOUS BLOOD GAS PO2 42 mm/Hg (30-55); VENOUS BLOOD PH 7.32 (7.32-7.43)
[2017-11-07 14:02] LABS: BASO # 0.02 K/mm3 (0.0-2.0); BASO % 0.3 % (0.0-3.0); EOS % 0.5 % (1.5-5.0); GRAN # 5.12 (1.4-6.5); HEMOGLOBIN 10.2 g/dL (12.0-16.0); LYMPH # 0.7 (1.2-3.4); LYMPH % 10.5 % (22.0-35.0); MEAN CELL VOLUME 101.6 fl (80.0-105.0); MEAN CORPUSCULAR HEMOGLOBIN 32.9 pg (25.0-35.0); MEAN CORPUSCULAR HGB CONC 32.4 g/dl (31.0-37.0); MEAN PLATELET VOLUME 9.2 fl (7.0-11.0); MONO # 0.6 (0.1-0.6); MONO % 9.7 % (1.0-6.0); RBC 3.1 10^6/uL (3.5-6.1); RED CELL DISTRIBUTION WIDTH 13.9 % (11.5-14.5); WHITE BLOOD COUNT 6.5 10^3/ul (4.5-11.0)
[2017-11-07 14:03] LABS: ALB/GLOB RATIO 1.2 (1.1-1.8); ALBUMIN 3.5 g/dL (3.0-4.8); ALT/SGPT 17 U/L (7-56); AST/SGOT 15 U/L (14-36); BLOOD UREA NITROGEN 21 mg/dL (7-21); CALCIUM 9.3 mg/dL (8.4-10.5); GFR NON-AFRICAN AMERICAN > 60; LIPASE 17 U/L (23-300)
[2017-11-07 14:06] LABS: INR 1.14; PARTIAL THROMBOPLASTIN TIME 33.5 Seconds (25.1-36.5); PROTHROMBIN TIME 13.1 SECONDS (9.4-12.5)
[2017-11-07 14:15] LABS: TROPONIN I 0.02 ng/mL
[2017-11-07] MEDS ORDERED: Oxycodone/Acetaminophen 5/325 mg Tab PO STA (14:46)
[2017-11-07 15:02] LABS: URINE BILIRUBIN NEGATIVE (NEGATIVE); URINE BLOOD NEGATIVE (NEGATIVE); URINE GLUCOSE (UA) NEGATIVE (NEGATIVE); URINE LEUKOCYTE ESTERASE TRACE Leu/uL (NEGATIVE); URINE PROTEIN TRACE mg/dL (<30 mg/dL); URINE UROBILINOGEN 0.2 E.U./dL (<1 E.U./dL)
[2017-11-07 15:03] LABS: URINE APPEARANCE CLEAR (CLEAR); URINE COLOR YELLOW (YELLOW)
[2017-11-07 15:27] LABS: URINE BACTERIA LARGE (NEG); URINE RBC 0 - 2 /hpf (0-2)
[2017-11-07] MEDS ORDERED: cefTRIAXone 1 gm 1 GM/100 ML BAG IVPB STA (15:31)
[2017-11-07 19:27] VITALS: BP 125/59; PULSE 66
[2017-11-07 20:08] VITALS: O2SAT 98
== END 2017-11-07 20:07 | disposition home or self-care (01) ==
LOC: ED 11:22
DX: N39.0 Urinary tract infection, site not specified (principal); I11.0 Hypertensive heart disease with heart failure; I50.9 Heart failure, unspecified; E11.9 Type 2 diabetes mellitus without complications; Z87.891 Personal history of nicotine dependence
CPT/HCPCS: 80053; 81001; 82803; 83690; 84484; 85025; 85610; 85730; 87040; 87086; 87181; 96361; 96365; 99284; J0696; J7030

== ENCOUNTER 2017-11-21 12:36 | Inpatient (IN) | payer MEDICARE, OTHER ==
[2017-11-21 12:19] VITALS: PULSE 150
[2017-11-21 12:38] VITALS: BMI 16.4
[2017-11-21] MEDS ORDERED: Sodium Chloride 0.9% 1,000 ML IV STA (13:30)
--- NOTE | 2017-11-21 13:32 | ED PDOC ---
Arrival/HPI - General Chief Complaint: Weakness/Neurological Deficit Time Seen by Provider: 11/21/17 12:47 Historian: Spouse EM Caveat: Altered Mental Status - History of Present Illness Narrative History of Present Illness (Text): 11/21/17 13:29 Patient is a 67 year old female whose past medical history includes COPD*, who presents to the Emergency department with her for altered mental status. Patient's states that yesterday she was fine, but today appeared more "sleepy". also states that patient hasn't eaten anything since yesterday, and has noticed patient wheezing. He denies patient has coughs or fever. Patient takes Tylenol, Xanax, and morphine at home. Of note patient was recently on antibiotics for UTI. . PMD: 11/21/17 18:05 Time/Duration: 4-6 hours Symptom Onset: Sudden Symptom Course: Unchanged Context: Home Past Medical History - Provider Review Nursing Documentation Reviewed: Yes - Past History Past History: Non-Contributing - Infectious Disease Hx of Infectious Diseases: None - Tetanus Immunization Tetanus Immunization: Up to Date, Unknown - Cardiac Hx Cardiac Disorders: Yes Hx Congestive Heart Failure: Yes Hx Hypertension: Yes - Pulmonary Hx Chronic Obstructive Pulmonary Disease (COPD): Yes - Neurological Hx Neurological Disorder: Yes (syncope ams) Hx Dizziness: Yes - HEENT Hx HEENT Disorder: Yes (eyeglasses) Other/Comment: developes ulcers left eye on eye drops - Renal Hx Renal Disorder: No - Endocrine/Metabolic Hx Diabetes Mellitus Type 2: Yes - Hematological/Oncological Hx Blood Transfusions: Yes Hx Blood Transfusion Reaction: No - Integumentary Other/Comment: Pressure wound - Musculoskeletal/Rheumatological Hx Back Pain: Yes Hx Falls: Yes Hx Fractures: Yes - Gastrointestinal Hx Gastrointestinal Disorders: Yes (weight loss appetite changes) - Genitourinary/Gynecological Hx Urinary Tract Infection: Yes - Psychiatric Hx Bipolar Disorder: Yes Hx Substance Use: No - Past Surgical History Past Surgical History: Non-Contributing - Surgical History Hx Mastectomy: No - Anesthesia Hx Anesthesia Reactions: Yes (coded) Hx Malignant Hyperthermia: No - Suicidal Assessment Feels Threatened In Home Enviroment: No Family/Social History - Physician Review Nursing Documentation Reviewed: Yes Family/Social History: No Known Family HX Smoking Status: Former Smoker Hx Alcohol Use: Yes Amount per day: 3 Hx Substance Use: No Hx Substance Use Treatment: No Allergies/Home Meds Allergies/Adverse Reactions: Allergies diphenhydramine HCl [From Benadryl] Allergy (Verified 11/09/17 19:24) SHORTNESS OF BREATH IV AND BLOOD PRESSURE LOW heparin Allergy (Verified 11/09/17 19:24) RASH aspirin Adverse Reaction (Verified 11/09/17 19:24) SHORTNESS OF BREATH anesthesia Allergy (Intermediate, Uncoded 11/09/17 19:24) RASH anesthetic agents Allergy (Mild, Uncoded 11/09/17 19:24) ANAPHYLAXIS Pt states she went into Cardiac arrest from anesthetics Home Medications: Home Meds Medication Instructions Recorded Confirmed RX: Alprazolam [Alprazolam Xr] 0.5 mg PO TID 06/26/17 11/21/17 RX: Nystatin [Mycostatin] 100,000 unit PO PRN 06/26/17 11/21/17 RX: Ondansetron HCl [Zofran] 4 mg PO PRN PRN 06/26/17 11/21/17 RX: Pantoprazole [Protonix EC Tab] 40 mg PO DAILY 06/26/17 11/21/17 RX: Paroxetine HCl [Paxil] 10 mg PO DAILY 06/26/17 11/21/17 Review of Systems - Review of Systems Systems not reviewed;Unavailable: Altered Mental Status Constitutional: Other (lethargic). absent: Fevers Respiratory: Wheezing Physical Exam - Physical Exam Physical Exam Limitations: Altered Mental Status Vital Signs Reviewed: Yes Vital Signs Temp Pulse Resp BP Pulse Ox 11/21/17 12:38 99.3 F 76 18 94/55 L 90 L Temperature: Afebrile Blood Pressure: Hypotensive Pulse: Regular Respiratory Rate: Normal Mental Status: Positive for: other (somnolent) Finger Stick Blood Glucose: 119 - Systems Exam Head: Present: Atraumatic, Normocephalic Pupils: Present: PERRL Extroacular Muscles: Present: EOMI Conjunctiva: Present: Normal Mouth: Present: Moist Mucous Membranes Neck: Present: Normal Range of Motion Respiratory/Chest: Present: Clear to Auscultation, Good Air Exchange. No: Respiratory Distress, Accessory Muscle Use Cardiovascular: Present: Regular Rate and Rhythm, Normal S1, S2. No: Murmurs Abdomen: No: Tenderness, Distention, Peritoneal Signs Back: Present: Normal Inspection Upper Extremity: Present: Normal Inspection. No: Cyanosis, Edema Lower Extremity: Present: Normal Inspection. No: Edema Neurological: Present: GCS=15, CN II-XII Intact Skin: Present: Warm, Dry, Normal Color. No: Rashes Psychiatric: Present: Other (Somnolent ) Medical Decision Making ED Course and Treatment: 11/21/17 13:36 Impression: Patient is a 67 year old female who presents to the Emergency department with her for altered mental status. Differential Diagnosis included but are not limited to: ro sepsis intracranil tox, hypercarbia Plan: --VBG -- Head CT without Contrast -- EKG -- Cardiac enzymes -- Blood work -- Labs -- Chest X-ray -- Duoneb -- Medrol -- IV fluids -- Urine culture -- Urinalysis -- Reassess and disposition Prior Visits: Notes and results from previous visits were reviewed. Patient was last seen in the Emergency department on 11/09/17 with Cota catheter problem and was discharged. Progress Notes: 11/21/17 13:29 EKG shows NSR at 79 BPM with LBBB. Interpreted by me. 11/21/17 14:32 Discussed case with , who is aware of and accepts patient under his service. 11/21/17 18:05 pt reassesed. urine treated. accepted by dr pruitt for admission. - Lab Interpretations Lab Results: Lab Results 11/21/17 12:45: POC Glucose (mg/dL) 119 H I have reviewed the lab results: Yes - RAD Interpretation Narrative RAD Interpretations (Text): 11/21/17 14:[address] without contrast: Dictator : Baljeet Brownlee MD FINDINGS: HEMORRHAGE: No intracranial hemorrhage. BRAIN: No mass effect or edema. No atrophy or chronic microvascular ischemic changes. VENTRICLES: Unremarkable. No hydrocephalus. CALVARIUM: Unremarkable. PARANASAL SINUSES: Unremarkable as visualized. No significant inflammatory changes. MASTOID AIR CELLS: Unremarkable as visualized. No inflammatory changes. OTHER FINDINGS: None. IMPRESSION: No acute findings 11/21/17 14:52 Chest X-ray: Dictator : Baljeet Brownlee MD FINDINGS: LUNGS: No active pulmonary disease. PLEURA: No significant pleural effusion identified, no pneumothorax apparent. CARDIOVASCULAR: Mild cardiomegaly OSSEOUS STRUCTURES: No significant abnormalities. VISUALIZED UPPER ABDOMEN: Normal. OTHER FINDINGS: Left-sided central line terminates at the junction of the right atrium and SVC IMPRESSION: No active disease. Hog Trader: Radiologist - EKG Interpretation Interpreted by ED Physician: Yes Type: 12 lead EKG Disposition/Present on Arrival - Present on Arrival Any Indicators Present on Arrival: No History of DVT/PE: No History of Uncontrolled Diabetes: No Urinary Catheter: No History of Decub. Ulcer: No History Surgical Site Infection Following: Orthopedic Procedures - Disposition Have Diagnosis and Disposition been Completed?: Yes Diagnosis: COPD exacerbation, UTI (urinary tract infection), Altered mental state Disposition: HOSPITALIZED Disposition Time: 03:00 Condition: FAIR
[2017-11-21 14:03] LABS: BASO # 0.02 K/mm3 (0.0-2.0); BASO % 0.1 % (0.0-3.0); EOS # 0.1 (0.0-0.7); EOS % 0.4 % (1.5-5.0); GRAN # 12.95 (1.4-6.5); GRAN % 90.1 % (50.0-68.0); HEMOGLOBIN 10.4 g/dL (12.0-16.0); LYMPH # 0.5 (1.2-3.4); LYMPH % 3.5 % (22.0-35.0); MEAN CELL VOLUME 102.2 fl (80.0-105.0); MEAN CORPUSCULAR HEMOGLOBIN 32.5 pg (25.0-35.0); MEAN CORPUSCULAR HGB CONC 31.8 g/dl (31.0-37.0); MEAN PLATELET VOLUME 9.4 fl (7.0-11.0); MONO # 0.9 (0.1-0.6); MONO % 5.9 % (1.0-6.0); PLATELET COUNT 157 10^3/uL (120.0-450.0); RED CELL DISTRIBUTION WIDTH 13.7 % (11.5-14.5); WHITE BLOOD COUNT 14.4 10^3/ul (4.5-11.0)
[2017-11-21 14:04] LABS: URINE BILIRUBIN NEGATIVE (NEGATIVE); URINE BLOOD TRACE-LYSED (NEGATIVE); URINE GLUCOSE (UA) NEGATIVE (NEGATIVE); URINE LEUKOCYTE ESTERASE MODERATE Leu/uL (NEGATIVE); URINE PROTEIN 30 mg/dL (<30 mg/dL); URINE UROBILINOGEN 0.2 E.U./dL (<1 E.U./dL)
[2017-11-21 14:05] LABS: URINE APPEARANCE CLEAR (CLEAR); URINE COLOR YELLOW (YELLOW)
[2017-11-21 14:09] LABS: VENOUS BLOOD GAS BASE EXCESS -4.5 mmol/L (0.0-2.0); VENOUS BLOOD GAS PO2 80 mm/Hg (30-55); VENOUS BLOOD PH 7.23 (7.32-7.43)
[2017-11-21 14:12] LABS: INR 1.1; PROTHROMBIN TIME 12.6 SECONDS (9.4-12.5)
[2017-11-21 14:13] LABS: ALB/GLOB RATIO 1.2 (1.1-1.8); ALBUMIN 3.5 g/dL (3.0-4.8); ALT/SGPT 17 U/L (7-56); AST/SGOT 17 U/L (14-36); BLOOD UREA NITROGEN 20 mg/dL (7-21); GFR NON-AFRICAN AMERICAN 55
--- NOTE | 2017-11-21 14:15 | CT ---
Date of service: 11/21/2017 PROCEDURE: CT HEAD WITHOUT CONTRAST. HISTORY: ams COMPARISON: 06/10/2017 TECHNIQUE: Axial computed tomography images were obtained through the head/brain without intravenous contrast. Radiation dose: Total exam DLP = 767 mGy-cm. This CT exam was performed using one or more of the following dose reduction techniques: Automated exposure control, adjustment of the mA and/or kV according to patient size, and/or use of iterative reconstruction technique. FINDINGS: HEMORRHAGE: No intracranial hemorrhage. BRAIN: No mass effect or edema. No atrophy or chronic microvascular ischemic changes. VENTRICLES: Unremarkable. No hydrocephalus. CALVARIUM: Unremarkable. PARANASAL SINUSES: Unremarkable as visualized. No significant inflammatory changes. MASTOID AIR CELLS: Unremarkable as visualized. No inflammatory changes. OTHER FINDINGS: None. IMPRESSION: No acute findings
[2017-11-21 14:16] LABS: URINE AMORPHOUS SEDIMENT FEW; URINE BACTERIA LARGE (NEG); URINE WBC 25 - 30 /hpf (0-6)
[2017-11-21] MEDS ORDERED: levoFLOXacin 750 mg in D5W 150 ML BAG IVPB STA (14:21)
[2017-11-21 14:23] LABS: TROPONIN I 0.11 ng/mL
[2017-11-21 14:31] LABS: LYMPHOCYTE 5 % (22.0-35.0); MONOCYTE 4 % (1.0-6.0); NEUTROPHIL 91 % (50.0-70.0); PLATELET ESTIMATE NORMAL (NORMAL)
[2017-11-21] MEDS: Albuterol-Ipratrop 3 mg / 0.5 (3 ml) UD IH SCH ×3 (14:37→15:13)
--- NOTE | 2017-11-21 14:43 | RAD ---
Date of service: 11/21/2017 HISTORY: ams COMPARISON: 06/26/2017 FINDINGS: LUNGS: No active pulmonary disease. PLEURA: No significant pleural effusion identified, no pneumothorax apparent. CARDIOVASCULAR: Mild cardiomegaly OSSEOUS STRUCTURES: No significant abnormalities. VISUALIZED UPPER ABDOMEN: Normal. OTHER FINDINGS: Left-sided central line terminates at the junction of the right atrium and SVC IMPRESSION: No active disease.
--- NOTE | 2017-11-21 16:30 | CARD ---
APPROVED REPORT Date of service: 11/21/2017 EKG Measurement Heart [id number] <Conclusion> Normal sinus rhythm Left axis deviation Left bundle branch block Abnormal ECG
[2017-11-21] MEDS ORDERED: Albuterol-Ipratrop 3 mg / 0.5 (3 ml) UD IH PRN (20:56)
[2017-11-21] MEDS ORDERED: Pneumococcal 23-Valent Vaccine IM ONE (23:07)
[2017-11-21] MEDS ORDERED: Influenza Vaccine 60 mcg/0.5 mL SYR (4YR UP) IM ONE (23:07)
[2017-11-22 07:20] LABS: GRAN # 11.3 (1.4-6.5); HEMOGLOBIN 9.4 g/dL (12.0-16.0); LYMPH # 0.2 (1.2-3.4); MEAN CELL VOLUME 100.3 fl (80.0-105.0); MEAN CORPUSCULAR HEMOGLOBIN 32.6 pg (25.0-35.0); MEAN CORPUSCULAR HGB CONC 32.5 g/dl (31.0-37.0); MEAN PLATELET VOLUME 9.7 fl (7.0-11.0); MONO # 0.7 (0.1-0.6); RBC 2.88 10^6/uL (3.5-6.1); RED CELL DISTRIBUTION WIDTH 13.7 % (11.5-14.5); WHITE BLOOD COUNT 12.3 10^3/ul (4.5-11.0)
[2017-11-22 07:30] LABS: ALB/GLOB RATIO 1.2 (1.1-1.8); ALBUMIN 3.3 g/dL (3.0-4.8); ALT/SGPT 16 U/L (7-56); AST/SGOT 13 U/L (14-36); BLOOD UREA NITROGEN 17 mg/dL (7-21); CALCIUM 9.2 mg/dL (8.4-10.5); GFR NON-AFRICAN AMERICAN > 60
[2017-11-22] MEDS: Cholecalciferol 1,000 INTLU TAB PO SCH (09:14)
[2017-11-22] MEDS: levoFLOXacin 500 mg in D5W 500 MG/100 ML BAG IVPB SCH (09:23)
[2017-11-22] MEDS: Pantoprazole 40 mg EC Tab PO SCH (09:23)
[2017-11-22] MEDS ORDERED: DOBUTamine 500mg/250ml D5W 500 MG/250 ML BAG IV PRN (14:19)
--- NOTE | 2017-11-22 18:38 | CON ---
DATE: 11/22/2017 CARDIOLOGY CONSULTATION HISTORY: The patient is a 67-year-old woman who presents with altered mental status with marked fatigue. She denies increasing shortness of breath, although she is chronically short of breath. 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 She has multiple orthopedic issues include a chronically broken right upper extremity as well as a fractured hip. In addition, the patient suffers from CAD. SOCIAL HISTORY: The patient is markedly markedly anxious when her around. REVIEW OF SYSTEMS: A 14-point review of systems is reviewed. No angina noted, but she is complaining of not receiving enough Xanax as well as oxycodone. PHYSICAL EXAMINATION: VITAL SIGNS: Blood pressure 118/62, the heart rates in the 60s, normal sinus rhythm. NECK: Negative JVD. LUNGS: Decreased breath sounds. HEART: S1, S2. EXTREMITIES: Chronically broken right upper extremity. Without edema. EKG shows no changes from her previous which is the baseline with left bundle-branch block. LABORATORY DATA: Hemoglobin is 9.4, white count is 12.3. BUN and creatinine are normal. Troponin is 0.11. IMPRESSION: 1. Progressive fatigue. 2. End-stage dilated cardiomyopathy secondary to chronic alcoholism. 3. Severe chronic obstructive pulmonary disease. 4. Eiv-LI-pmoecxxfo myocardial infarction. 5. Status post multiple falls. 6. Increasing fatigue. 7. Anemia. Given these findings, we will give the patient a trial of IV dobutamine which has helped her fatigue in the past. Michael Schulte MD
[2017-11-22] MEDS: oxyCODONE 5 mg Immediate Release Tab PO PRN (21:59)
[2017-11-23] MEDS: oxyCODONE 5 mg Immediate Release Tab PO PRN ×2 (08:01→23:26)
[2017-11-23] MEDS: Cholecalciferol 1,000 INTLU TAB PO SCH (09:52)
[2017-11-23] MEDS: levoFLOXacin 500 mg in D5W 500 MG/100 ML BAG IVPB SCH (09:52)
[2017-11-23] MEDS: Pantoprazole 40 mg EC Tab PO SCH (09:53)
--- NOTE | 2017-11-23 12:11 | PN ---
DATE: 11/23/2017 SUBJECTIVE: The patient is breathing better after IV dobutamine. PHYSICAL EXAMINATION: VITAL SIGNS: Blood pressure is 112/51, heart rate is 100. NECK: Negative JVD. LUNGS: Decreased breath sounds without rales. HEART: S1, S2. EXTREMITIES: Unchanged. LABORATORY DATA: Hemoglobin is 9.4. Chemistries, BUN and creatinine normal. Potassium is 5.3. IMPRESSION 1. Resolution of dyspnea. 2. End-stage dilated cardiomyopathy. 3. Alcoholism. 4. Chronic obstructive pulmonary disease. 5. Persistent tachycardia 6. Non-ST elevation myocardial infarction. 7. Fatigue. 8. Status post fall. Given these findings, we will discontinue her dobutamine today. Continue her on her present medications. Michael Schulte MD
[2017-11-23 13:29] VITALS: RESP 18
[2017-11-23] MEDS: Tolterodine 4 mg ER Cap PO SCH (13:44)
--- NOTE | 2017-11-23 14:32 | PN ---
DATE: 11/23/2017 DAILY PROGRESS NOTE The patient is a 67-year-old female with a history of chronic low back pain, yyv-uuaiozg-nzylxbifn diabetes mellitus, chronic fracture of the right humerus, EtOH cardiomyopathy and EtOH bone marrow suppression with pancytopenia at times. Her ejection fraction is known to be around 15%. 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 When seen today, the patient is sitting up in bed. She is awake, alert and oriented. Her significant other is at bedside. Her respirations are easy. She only voices a complaint of anxiety. She does not like it when her significant other is there. She does not like it when her significant other goes away. She gets very anxious. Lungs are clear to auscultation and percussion. Heart is regular. Abdomen is soft, nontender. Extremities are free of cyanosis, clubbing or edema. The patient was seen and evaluated by Dr. Schulte for freelance copywriter. She has been started on dobutamine drip at 5 mcg/kg per minute, with which the patient had improved in the past. The patient's vital signs are stable. Her blood pressure is 112/51 with a heart rate of 111. We are continuing with the current regimen at the patient's request. I will increase her Xanax to 1 mg at bedtime. She will continue taking the same 0.5 mg as needed for anxiety during the course of the day. At the patient's request, I will be adding Detrol LA 4 mg to her regimen for urinary incontinence. Case was discussed at length with the patient and her significant other and she will be reevaluated in the morning. We will continue following her closely. Baljeet King MD
--- NOTE | 2017-11-23 20:11 | CON ---
DATE: 11/23/2017 HISTORY OF PRESENT ILLNESS: Short, the patient is 67-year-old female with multiple medical issues including COPD. The patient was admitted on the medical side for evaluation of altered mental status, lethargy, also inability to eat. The patient has history of anxiety, that is why this news writer got involved into the patient care. This news writer is very familiar with this patient from the multiple consultation services in the past. The patient was on Xanax as well as Paxil. The patient was seen and examined today with medical students. The patient presented to be alert, seems to be a fair historian. The patient reported that her anxiety was out of control because of the medical issues. The patient reported that she broke her hip. Since that time, she has separation anxiety. The patient reported that even if her is leaving her for few minutes, she feels very anxious and she started calling him. The patient reported that her mood is very depressed because of the medical issues and inability to walk very well. The patient also reported that she constantly feel anxious. The patient reported that she was taking Xanax 1 mg three times a day. At present moment, the patient is on 0.5 mg three times a day. The patient reported if she is not taking Xanax, she is not able to eat, she cannot sleep, she cannot function. The patient denied that she is walking. The patient reported that she is staying in bed all day long and the patient reported that her is distributing medications to her. The patient's is next to her and confirmed that information. The patient denied that she wants to . The patient denied that she has any thoughts of killing herself or others. PHYSICAL EXAMINATION: VITAL SIGNS: Reviewed. Temperature earlier yesterday was 100.2; pulse was 125, today is 111; blood pressure 112/51; respirations 20, and oxygen saturation is 95%. MEDICATIONS: Reviewed. Tylenol. Xanax will be increased to 0.5 mg four times a day scheduled. The patient is on, calcium carbonate, vitamin D, dobutamine, Lasix, Levaquin, Zofran, oxycodone, Protonix. Paxil was resumed by medical team and we will change it to 10mg at nighttime. The patient is on prednisone, Ambien 5 mg at the nighttime as needed for insomnia. LABORATORY DATA: Reviewed. The patient has leukocytosis, but it is trending down. WBC today is 12.3. Coagulation reviewed and blood gas reviewed. Chemistry reviewed. Potassium is 5.3 and chloride is 111. Urinalysis showed infection. Leukocyte esterase positive, protein 30 which is high. MENTAL STATUS EXAMINATION: The patient presented to be alert, seems to be fair historian, very anxious lady, intermittent eye contact. Speech was underproductive, low volume. Mood described as anxious and depressed. Affect was mood congruent. Thought process: Circumstantial. Thought content: The patient denied visual, auditory, or tactile hallucinations. Denied paranoid ideation. Denied thoughts of harming herself or others. CT scan of the reviewed no acute pathology. Left bundle branch block is on EKG. X-ray was also done, which showed no active disease. As per nursing report, the patient does not have any agitation or aggression, medication compliant. IMPRESSION: Rule out depression and anxiety due to general medical condition, rule out generalized anxiety disorder. PLAN: Continue current management. Continue current medication. Lexapro was resumed 10 mg at the nighttime. Ativan was increased in frequency 0.5 mg four times a day to compare with three times a day before. Ambien should be continued. Emotional support and empathic listening provided. Over the weekend, Dr. Jeffers will follow up on this patient. Should you have any questions, give me a call back. Thank you very much for letting me participate in care of your patient. Leigh Ann Loco MD [place]
--- NOTE | 2017-11-23 22:31 | HP ---
HISTORY OF PRESENT ILLNESS: The patient is a 67-year-old female with a past medical history positive for chronic obstructive pulmonary disease, alcoholic cardiomyopathy, alcoholic bone marrow suppression, iiq-wqcgpre-ackgaqvgr diabetes mellitus, chronic low back pain, chronic nonhealing fracture of the right mid humerus. She has a history of follicular lymphoma in her distant past. She is known to have an ejection fraction of 15%. She was brought to the emergency room at the urging of her significant other, who found the patient to show altered mental status. She was increasingly sleepy and belligerent at home. She began wheezing. Therefore she was brought to the emergency room, was evaluated and admitted. PAST MEDICAL HISTORY: As mentioned above. SOCIAL HISTORY: The patient is a former smoker, former alcoholic, however, she has been abstaining for the past several months. MEDICATIONS: On admission included alprazolam 0.5 mg 3 times a day, nystatin swish and swallow p.r.n., Zofran 4 mg as needed, Protonix 40 mg daily and Paxil 10 mg every day. ALLERGIES: SHE IS KNOWN TO BE ALLERGIC TO BENADRYL WHICH CAUSED SHORTNESS OF BREATH IN THE PAST. HEPARIN CAUSED A RASH. ASPIRIN MADE HER SHORT OF BREATH IN THE PAST AND ANESTHESIA CAUSED CARDIAC ARREST, which is why the patient never returned for healing of her humerus fracture. However, several months ago, the patient fell fracturing her left hip and this was surgically repaired without any incident. REVIEW OF SYSTEMS: Otherwise unremarkable. PHYSICAL EXAMINATION: VITAL SIGNS: On physical exam, she has a low grade fever of 99.3 degrees Fahrenheit, blood pressure is 94/55, heart rate of 76 beats per minute. HEENT: Examination of the Head, eyes, ears, nose and Throat is unremarkable. LUNGS: Her lungs are distant. There was a slight inspiratory wheeze appreciated. HEART: The heart sounds are regular. There was a systolic murmur appreciated. ABDOMEN: Soft, flat, nontender. Extremities: Free of cyanosis, clubbing or edema. Chronic fracture of the right humerus is noted. NEUROLOGIC: The patient is awake, alert and oriented. There are no focal neurological signs. LABORATORY DATA: Laboratory studies show the white blood cell count to be elevated at 14.4, hemoglobin and hematocrit are 10.4 and 32.7, platelet count is 157. Sodium is 140, potassium is elevated at 5.2, blood urea nitrogen is 20, creatinine is 1, nonfasting glucose is 119. Urinalysis showed 25-30 white blood cells per high-power field with 5-10 red blood cells. It was positive for bacteria and positive for yeast. Of note, the patient has an indwelling Cota catheter. She insists that it is necessary because of the difficulty for her to get out of bed to the bathroom when needed. The Cota catheter was apparently changed approximately 2 weeks ago. ADMITTING DIAGNOSES: Urinary tract infection, mental status change, congestive heart failure, cardiomyopathy, chronic obstructive pulmonary disease. Baljeet King MD
[2017-11-24] MEDS: oxyCODONE 5 mg Immediate Release Tab PO PRN (04:59)
[2017-11-24] MEDS: levoFLOXacin 500 mg in D5W 500 MG/100 ML BAG IVPB SCH (09:38)
[2017-11-24] MEDS: Pantoprazole 40 mg EC Tab PO SCH (09:39)
[2017-11-24] MEDS: Cholecalciferol 1,000 INTLU TAB PO SCH (09:39)
[2017-11-24] MEDS: Tolterodine 4 mg ER Cap PO SCH (09:41)
[2017-11-24 14:03] VITALS: BP 90/55; PULSE 73; TEMP 98
[2017-11-24 15:41] VITALS: O2SAT 97
--- NOTE | 2017-11-24 22:53 | PN ---
DATE: 11/24/2017 SUBJECTIVE: The patient was seen today. The patient reported that she slept well at the night time. The patient was insisting that all of the medications seem to be given to her if she is sleeping or not sleeping. The patient reported that she feels anxious on and off, but overall she feels better in regards of her anxiety. PHYSICAL EXAMINATION: VITAL SIGNS: Seems to be stable. Temperature 98, pulse 73, blood pressure 90/55, respiration 18. Medications reviewed. The patient is on Xanax 0.5 mg 4 times a day. Also, the patient is on Paxil 10 mg at the nighttime, Ambien 10 mg. Labs reviewed. The patient still has leukocytosis, but is trending down. Microbiology is positive for Klebsiella pneumonia. MENTAL STATUS EXAM: The patient presented to be alert and oriented, somewhat irritable as well as annoyed, intermittent eye contact. Mood described as anxious. Affect was flat. Thought process circumstantial, but not tangential. Thought content, the patient denied visual, auditory, tactile hallucinations. Denied paranoid ideation. The patient denied thoughts of harming herself or others. Denied intents or plan. Insight and judgment seems to be improving. Impulses are well controlled. IMPRESSION: Rule out mood disorder and anxiety disorder due to general medical condition. PLAN: Continue Xanax 0.5 mg 4 times a day, Paxil 10 mg at the night time, Ambien 10 mg at the night time. Emotional support and empathic listening provided. The patient does not need to be seen by this policy writer typist tomorrow. We will follow up on this patient on Sunday or on Sunday. Thank you very much for letting me participate in the care of your patient. Leigh Ann Loco MD
== END 2017-11-24 16:44 | DRG 689 ==
LOC: ED 12:36 → ERH 14:33 → 2RSO 19:30
PROVIDERS: ADMIT Internal Medicine; ATTEND Internal Medicine
DX: N39.0 Urinary tract infection, site not specified (principal); I21.4 Non-ST elevation (NSTEMI) myocardial infarction; J44.1 Chronic obstructive pulmonary disease with (acute) exacerbation; I42.6 Alcoholic cardiomyopathy; I42.0 Dilated cardiomyopathy; M84.421K Pathological fracture, right humerus, subsequent encounter for fracture with nonunion; R41.82 Altered mental status, unspecified; I11.0 Hypertensive heart disease with heart failure; E11.9 Type 2 diabetes mellitus without complications; F31.9 Bipolar disorder, unspecified; Z91.81 History of falling; R29.6 Repeated falls; D64.9 Anemia, unspecified; F41.9 Anxiety disorder, unspecified; I50.9 Heart failure, unspecified; R32 Unspecified urinary incontinence; Z85.72 Personal history of non-Hodgkin lymphomas; Z87.440 Personal history of urinary (tract) infections; Z87.891 Personal history of nicotine dependence; Z88.4 Allergy status to anesthetic agent; Z88.8 Allergy status to other drugs, medicaments and biological substances; Z87.892 Personal history of anaphylaxis; R40.2412 Glasgow coma scale score 13-15, at arrival to emergency department; I44.7 Left bundle-branch block, unspecified; B96.1 Klebsiella pneumoniae [K. pneumoniae] as the cause of diseases classified elsewhere; R00.0 Tachycardia, unspecified; F10.20 Alcohol dependence, uncomplicated

== ENCOUNTER 2017-11-24 16:47 | Inpatient (IN) | payer OTHER ==
[2017-11-09 19:04] VITALS: PULSE 150
[2017-11-24] MEDS ORDERED: Albuterol-Ipratrop 3 mg / 0.5 (3 ml) UD IH PRN (17:05)
[2017-11-24] MEDS: oxyCODONE 5 mg Immediate Release Tab PO PRN (18:13)
[2017-11-25] MEDS: oxyCODONE 5 mg Immediate Release Tab PO PRN ×4 (02:54→23:15)
[2017-11-25] MEDS: levoFLOXacin 500 mg in D5W 500 MG/100 ML BAG IVPB SCH (05:53)
[2017-11-25] MEDS: Pantoprazole 40 mg EC Tab PO SCH (05:55)
--- NOTE | 2017-11-25 09:03 | CP.PCM.PCO ---
Physician Communication Note - Physician Communication Note Physician Communication Note: there are no acute issues, will f/u either on Sunday or Sunday
[2017-11-25] MEDS: Cholecalciferol 1,000 INTLU TAB PO SCH (09:51)
[2017-11-25] MEDS: Tolterodine 4 mg ER Cap PO SCH (09:51)
[2017-11-26] MEDS: Pantoprazole 40 mg EC Tab PO SCH (06:04)
[2017-11-26] MEDS: levoFLOXacin 500 mg in D5W 500 MG/100 ML BAG IVPB SCH (06:04)
[2017-11-26] MEDS: oxyCODONE 5 mg Immediate Release Tab PO PRN ×4 (06:04→23:14)
[2017-11-26] MEDS: Tolterodine 4 mg ER Cap PO SCH (10:35)
[2017-11-26] MEDS: Cholecalciferol 1,000 INTLU TAB PO SCH (10:36)
[2017-11-26 11:04] LABS: BASO # 0.01 K/mm3 (0.0-2.0); BASO % 0.1 % (0.0-3.0); EOS # 0.1 (0.0-0.7); EOS % 1.2 % (1.5-5.0); GRAN # 6.7 (1.4-6.5); GRAN % 79.1 % (50.0-68.0); HEMOGLOBIN 9.4 g/dL (12.0-16.0); LYMPH # 0.8 (1.2-3.4); MEAN CORPUSCULAR HEMOGLOBIN 32.4 pg (25.0-35.0); MEAN CORPUSCULAR HGB CONC 32.8 g/dl (31.0-37.0); MEAN PLATELET VOLUME 8.9 fl (7.0-11.0); MONO # 0.9 (0.1-0.6); MONO % 10.6 % (1.0-6.0); RBC 2.9 10^6/uL (3.5-6.1); RED CELL DISTRIBUTION WIDTH 13.4 % (11.5-14.5); WHITE BLOOD COUNT 8.5 10^3/ul (4.5-11.0)
[2017-11-26 11:25] LABS: ALB/GLOB RATIO 1.1 (1.1-1.8); ALT/SGPT 11 U/L (7-56); AST/SGOT 24 U/L (14-36); BLOOD UREA NITROGEN 17 mg/dL (7-21); CALCIUM 8.4 mg/dL (8.4-10.5); GFR NON-AFRICAN AMERICAN > 60
[2017-11-26] MEDS ORDERED: Aluminum Hydroxide/Magnesium 30 ML, DiphenhydrAMINE 75 MG, Lidocaine 2% Viscous 30 ML PO PRN ×2 (12:46→12:48)
[2017-11-27] MEDS: Pantoprazole 40 mg EC Tab PO SCH (05:19)
[2017-11-27] MEDS: levoFLOXacin 500 MG TAB PO SCH (05:19)
[2017-11-27] MEDS: oxyCODONE 5 mg Immediate Release Tab PO PRN ×3 (05:19→20:19)
--- NOTE | 2017-11-27 10:02 | PN ---
DATE: 11/26/2017 SUBJECTIVE: The patient is a 67-year-old female who was admitted to [facility] on 11/21/2017 with urinary tract infection, mental status changes and COPD exacerbation. The patient is known to have COPD, alcoholic cardiomyopathy with an ejection fraction of 15%, alcoholic bone marrow suppression, chronic fracture of the right upper extremity. She is status post lymphoma many years ago. She is being treated with intravenous Levaquin for urinary tract infection, short course of intravenous dobutamine worked well on the medical floor prior to transfer to the Transitional Care Unit. She is doing well. She seems to be motivated with physical therapy. Laboratory studies revealed white blood cell count to be 0.5, hemoglobin and hematocrit are 9.4 and 28.7 respectively, platelet count is 150. Serum chemistries show sodium is 140, potassium 4, blood urea nitrogen is 17, creatinine is 0.9, glucose is 96. Liver enzymes are within normal limits. We are continuing to encourage physical therapy. The patient is very concerned and needs reassurance. She will be receiving her Xanax, her Percocet and her Ambien for sleep. The patient was reassured. All the medications are on order. The patient is to be reevaluated in the morning. Baljeet King MD
[2017-11-27] MEDS: Tolterodine 4 mg ER Cap PO SCH (10:27)
[2017-11-27] MEDS: Cholecalciferol 1,000 INTLU TAB PO SCH (10:28)
--- NOTE | 2017-11-27 13:45 | PN ---
DATE: 11/27/2017 CARDIOLOGY FOLLOWUP SUBJECTIVE: The patient is in the TCU. She is feeling well. No shortness of breath. She participated with physical therapy. PHYSICAL EXAMINATION: VITAL SIGNS: Blood pressure is 94/45, heart rate is in the 70s. NECK: Negative JVD. LUNGS: Decreased breath sounds without rales. HEART: Reveals S1, S2. EXTREMITIES: Cachectic, but without edema. LABORATORY DATA: Hemoglobin is 9.4. Chemistries are unremarkable. IMPRESSION: 1. Diffuse weakness. 2. Dilated cardiomyopathy. 3. Coronary artery disease. 4. Chronic obstructive pulmonary disease. 5. History of alcoholism. PLAN: Given these findings, the patient is having a good day today. We will encourage to increase her p.o. intake. Michael Schulte MD
--- NOTE | 2017-11-27 18:06 | CP.PCM.PCO ---
Physician Communication Note - Physician Communication Note Physician Communication Note: due to high volume of consults will f/u on pt tomorrow, 11/28/17
--- NOTE | 2017-11-27 18:22 | HP ---
HISTORY OF PRESENT ILLNESS: The patient is a 67-year-old female with a past medical history positive for chronic low back pain, chronically fractured right humerus, noninsulin-dependent diabetes mellitus, EtOH cardiomyopathy with an ejection fraction around 15%, EtOH bone marrow suppression with pancytopenia, chronic obstructive pulmonary disease, history of follicular lymphoma in the distant past, who was admitted to [facility] on 11/21/2017 with urinary tract infection, mental status changes and chronic obstructive pulmonary disease. She responded well to dobutamine drip, intravenous antibiotics. As the patient improved, arrangements were made for her to be transferred to the Transitional Care Unit for physical therapy and physical therapy and ambulatory strength and endurance. PHYSICAL EXAMINATION: GENERAL: The patient is awake, alert and oriented. NECK: Supple with no lymphadenopathy. No goiter. LUNGS: Clear anteriorly and laterally. HEART: Heart sounds are regular. Murmur is appreciated. ABDOMEN: Soft, nontender with no organomegaly. EXTREMITIES: Free of cyanosis, clubbing or edema. A chronic fracture of the right upper extremity is noted. IMPRESSION: Her medications are to resume. They include Ambien 10 mg at bedtime, Detrol LA 4 mg daily, DuoNeb nebulizer treatments every 2 hours as needed, Lasix 20 mg daily. We are continuing with Levaquin 500 mg daily for her urinary tract infection. Os-Daniel 500 mg daily, oxycodone 5 mg every 6 hours as needed for pain, Paxil 10 mg at bedtime, prednisone 10 mg daily, Protonix 40 mg in the morning, vitamin D 2000 International Units daily, Xanax 0.5 mg four times a day and Zofran 4 mg every 8 hours as needed for nausea and vomiting. Physical therapy is encouraged and the patient will be followed closely. She will be reevaluated in the morning. Baljeet King MD
[2017-11-28] MEDS: oxyCODONE 5 mg Immediate Release Tab PO PRN ×3 (04:04→19:55)
[2017-11-28] MEDS: levoFLOXacin 500 MG TAB PO SCH (06:13)
[2017-11-28] MEDS: Pantoprazole 40 mg EC Tab PO SCH (06:14)
[2017-11-28] MEDS: Tolterodine 4 mg ER Cap PO SCH (09:50)
[2017-11-28] MEDS: Cholecalciferol 1,000 INTLU TAB PO SCH (09:51)
[2017-11-29] MEDS: oxyCODONE 5 mg Immediate Release Tab PO PRN ×3 (03:19→14:43)
--- NOTE | 2017-11-29 04:54 | PN ---
DATE: 11/28/2017 SUBJECTIVE: The patient was followed up today. The patient appears to be less anxious, more coherent. The patient presented to be mildly irritable towards her because she wants to know where he is. She wants to know when he is coming back. From this radio news writer perspective, the patient seems to have attachment problems and also separation anxiety as well as mild depressive symptoms. The patient reported why she is acting this way because she had so many losses in her life. She does not want to be left by her and she wants to make sure that he is still in love with her. This radio news writer educated the patient about family sessions and advise for the patient as well as for her to seek professional help if they have marital problems. Meanwhile, the patient is less anxious, reported that she has good night sleep. Denied being depressed. Denied any thoughts of harming herself or others. Labs reviewed, within normal limits. Vital signs within normal limits. As per staff report, the patient is compliant with the medication, does not appear to be psychotic or agitated. MENTAL STATUS EXAMINATION: The patient presented to be alert, oriented, superficially cooperative. Intense eye contact. Mood described, "I want to know where my is always". Thought process coherent and goal directed. Thought content, the patient denied visual, auditory, tactile hallucinations. Denied paranoid ideation. The patient denied thoughts of harming herself or others. Denied intent or plan. Insight and judgment seems to be improving. Impulses are well controlled. IMPRESSION: Rule out mood disorder and anxiety disorder due to general medical condition, rule out separation anxiety, rule out defense mechanism regression. PLAN: Continue current management. Continue current medications. This radio news writer feels that the patient reached maximum effect from this radio news writer's help. The patient is not depressed. The patient is not agitated. The patient is less anxious. The patient can be followed up as outpatient with [facility] for primary care physician or psychiatrist. All information will be provided to the patient and it is up to her and up to her if they would look for professional held for marital problems. Thank you very much for letting me participate in care of your patient. I will sign off. Leigh Ann Loco MD [facility] # [id number]
[2017-11-29] MEDS: Pantoprazole 40 mg EC Tab PO SCH (05:21)
[2017-11-29] MEDS: Tolterodine 4 mg ER Cap PO SCH (10:05)
[2017-11-29] MEDS: Cholecalciferol 1,000 INTLU TAB PO SCH (10:06)
--- NOTE | 2017-11-29 15:01 | PN ---
DATE: 11/28/2017 DAILY PROGRESS NOTE SUBJECTIVE: The patient is a 67-year-old female who was admitted to [facility] on 11/21/2017, with a urinary tract infection, COPD exacerbation, and mental status changes. She is known to have a history of COPD, alcoholic cardiomyopathy with an ejection fraction of 15%, alcoholic bone marrow suppression, chronic fracture of the right upper extremity, status post lymphoma many years ago. She was treated with intravenous Levaquin for the urinary tract infection. She received a short course of intravenous dobutamine from her oncologist Dr. Schulte. As the patient improved, she was ready for transfer to the transitional care unit for ambulatory strength and endurance. She has been doing well on the transitional care unit. She is participating in physical therapy. She continues to be followed by Dr. Schulte, her motorcoach operator. She is also seen by Dr. Loco, the psychiatrist. We are continuing to encourage physical therapy and will be reevaluated the patient closely. Baljeet King MD
--- NOTE | 2017-11-29 15:55 | PN ---
DATE: 11/29/2017 CARDIOLOGY FOLLOWUP SUBJECTIVE: The patient has worked with physical therapy without issues. PHYSICAL EXAMINATION: VITAL SIGNS: Blood pressure is 113/65, the heart rate is in the 60s. NECK: Negative JVD. LUNGS: Decreased breath sounds without rales. HEART: Reveals S1, S2. EXTREMITIES: Without change. LABORATORY DATA: Hemoglobin is 9.4. No chemistries were done today. IMPRESSION: 1. Dilated cardiomyopathy. 2. Resolution of congestive heart failure. 3. History of alcoholism. 4. Cachexia. 5. Chronic obstructive pulmonary disease. PLAN: Given these findings, the patient is doing can be. She is scheduled for discharge in the morning. Michael Schulte MD
[2017-11-29 17:06] VITALS: RESP 18; O2SAT 96
--- NOTE | 2017-11-30 01:52 | PN ---
DATE: 11/29/2017 SUBJECTIVE: The patient was seen this late afternoon, early evening in Transitional Care Unit, room 320, bed #1 with her longtime partner and spouse equivalent Nickolas at the bedside. She is awake, alert, clear and in good spirits. Very much excited and looking forward to going home tomorrow. Her big concern was regarding her home medications; so, today, I was able to electronically prescribe Zofran, Xanax and review her other medications before discharge tomorrow. PHYSICAL EXAMINATION: GENERAL: She is awake and alert, in good spirits. LUNGS: Show rather good aeration right and left with markedly decreased breath sounds with severe COPD. There is no rales, wheezes or rhonchi. EXTREMITIES: Thin, frail, no edema. IMPRESSION: Deconditioning after recent hospitalization for urinary tract infection, chronic obstructive pulmonary disease and altered mental status. PLAN: Discharge to home tomorrow. Tripp King MD
[2017-11-30] MEDS: oxyCODONE 5 mg Immediate Release Tab PO PRN ×2 (04:12→10:41)
[2017-11-30] MEDS: Pantoprazole 40 mg EC Tab PO SCH (05:51)
[2017-11-30 06:14] VITALS: PULSE 77; TEMP 97.7
[2017-11-30] MEDS: Cholecalciferol 1,000 INTLU TAB PO SCH (09:13)
[2017-11-30] MEDS: Tolterodine 4 mg ER Cap PO SCH (09:13)
[2017-11-30 09:17] VITALS: BP 90/52
--- NOTE | 2017-12-02 14:57 | DS ---
HISTORY OF PRESENT ILLNESS: This is a 67-year-old woman who looks much older than her stated age with severe COPD and severe congestive heart failure. I have known her for several years now, and she has done amazingly well despite her severe chronic multiple comorbidities. She came to the hospital with acute urinary tract infection and altered mental status and was treated and now comes to transitional care unit for additional physical therapy and conditioning. This is the discharge summary for her stay in transitional care unit. The patient stayed in the transitional care, engaged in the activities of unit and physical therapy, medications, aerosol treatments were continued. Her gentleman friend of many years/spouse equivalent was at her bedside much of the time. She did well, was ambulating, and ready for discharge to home. This Sunday morning, she was awake, alert and clear. Lungs showed markedly decreased breath sounds on both sides with prolonged expiratory phase, but there were no rales, wheezes, or rhonchi. Her lungs actually were good compared to her underlying baseline breath sounds. She was discharged to home. Medications were reviewed. Instructed to follow up with us within two weeks, either in the office or in a hospital visit. FINAL DISCHARGE DIAGNOSES: 1. Deconditioning. 2. Chronic obstructive pulmonary disease. 3. Congestive heart failure. 4. Low ejection fraction, less than 20%. 5. History of tobacco use. 6. History of alcohol use. 7. Frail body habitus. Tripp King MD
== END 2017-11-30 16:15 | disposition home health service (06) | DRG 945 ==
LOC: TRCU 16:47
PROVIDERS: ADMIT Internal Medicine; ATTEND Internal Medicine
PROC: F07Z9FZ Gait Training/Functional Ambulation Treatment using Assistive, Adaptive, Supportive or Protective Equipment (ICD-10-PCS; principal; 2017-11-25)
PROC: F08Z4FZ Home Management Treatment using Assistive, Adaptive, Supportive or Protective Equipment (ICD-10-PCS; 2017-11-25)
DX: R53.1 Weakness (principal); N39.0 Urinary tract infection, site not specified; J44.1 Chronic obstructive pulmonary disease with (acute) exacerbation; I42.6 Alcoholic cardiomyopathy; I42.0 Dilated cardiomyopathy; R64 Cachexia; Z68.1 Body mass index [BMI] 19.9 or less, adult; I50.9 Heart failure, unspecified; I25.10 Atherosclerotic heart disease of native coronary artery without angina pectoris; E11.9 Type 2 diabetes mellitus without complications; G89.29 Other chronic pain; M54.5 Low back pain; Z79.84 Long term (current) use of oral hypoglycemic drugs; Z85.72 Personal history of non-Hodgkin lymphomas; Z87.891 Personal history of nicotine dependence

== ENCOUNTER 2018-01-22 09:30 | Emergency (ER) | payer MEDICARE, OTHER ==
[2018-01-22 09:31] VITALS: PULSE 150; BMI 15.7
--- NOTE | 2018-01-22 10:01 | ED PDOC ---
Arrival/HPI - General Chief Complaint: Lower Extremity Problem/Injury Historian: Patient, EMS - History of Present Illness Narrative History of Present Illness (Text): 01/22/18 09:54 67 y/o male, pmh including ulcerative colitis/copd/chf/lt. femur fx/chronic lumbar compression fracture and chronic rt. humerus fracture/dm/cardiomyapthy, allergic to aspirin/heparin/benadryl, biba c/o lt. knee pain s/p fall on the left knee yesterday. Pt. stated that she was going up the stair last night, almost fall and fall on the left knee, been having pain, stated that she has narcotics at home which she didn't take it because she was planning to come to the ER, no other injuries, no LOC, no rash, no other medical or psychological complaints. Past Medical History - Provider Review Nursing Documentation Reviewed: Yes - Past History Past History: Non-Contributing - Infectious Disease Hx of Infectious Diseases: None - Tetanus Immunization Tetanus Immunization: Up to Date, Unknown - Cardiac Hx Cardiac Disorders: Yes Hx Congestive Heart Failure: Yes Hx Hypertension: Yes - Pulmonary Hx Respiratory Disorders: Yes Hx Chronic Obstructive Pulmonary Disease (COPD): Yes - Neurological Hx Neurological Disorder: Yes (syncope ams) Hx Dizziness: Yes - HEENT Hx HEENT Disorder: Yes (eyeglasses) - Renal Hx Renal Disorder: No - Endocrine/Metabolic Hx Endocrine Disorders: Yes Hx Diabetes Mellitus Type 2: Yes - Hematological/Oncological Hx Blood Disorders: Yes Hx Anemia: Yes - Integumentary Hx Dermatological Disorder: Yes - Musculoskeletal/Rheumatological Hx Musculoskeletal Disorders: Yes Hx Falls: Yes Other/Comment: NON UNION - Gastrointestinal Hx Gastrointestinal Disorders: Yes - Genitourinary/Gynecological Hx Genitourinary Disorders: Yes Hx Urinary Tract Infection: Yes - Psychiatric Hx Psychophysiologic Disorder: Yes Hx Anxiety: Yes Hx Bipolar Disorder: Yes Hx Depression: Yes Hx Substance Use: Yes (H/O OD.) - Past Surgical History Past Surgical History: Non-Contributing - Surgical History Hx Mastectomy: No - Anesthesia Hx Anesthesia: Yes Hx Anesthesia Reactions: Yes Hx Malignant Hyperthermia: No - Suicidal Assessment Feels Threatened In Home Enviroment: No Family/Social History - Physician Review Nursing Documentation Reviewed: Yes Family/Social History: Unknown Family HX Smoking Status: Current Some Days Smoker Hx Alcohol Use: Yes (H/O) Amount per day: 3 Hx Substance Use: Yes (H/O OD.) Hx Substance Use Treatment: No Allergies/Home Meds Allergies/Adverse Reactions: Allergies diphenhydramine HCl [From Benadryl] Allergy (Verified 01/22/18 09:42) SHORTNESS OF BREATH IV AND BLOOD PRESSURE LOW heparin Allergy (Verified 01/22/18 09:42) RASH aspirin Adverse Reaction (Verified 01/22/18 09:42) SHORTNESS OF BREATH anesthesia Allergy (Intermediate, Uncoded 01/22/18 09:42) RASH anesthetic agents Allergy (Mild, Uncoded 01/22/18 09:42) ANAPHYLAXIS Pt states she went into Cardiac arrest from anesthetics Home Medications: Home Meds Medication Instructions Recorded Confirmed Alprazolam [Alprazolam Xr] 0.5 mg PO TID 06/26/17 11/25/17 Nystatin [Mycostatin] 100,000 unit PO PRN 06/26/17 11/25/17 Ondansetron HCl [Zofran] 4 mg PO PRN PRN 06/26/17 11/25/17 Pantoprazole [Protonix EC Tab] 40 mg PO DAILY 06/26/17 11/25/17 Paroxetine HCl [Paxil] 10 mg PO DAILY 06/26/17 11/25/17 Review of Systems - Review of Systems Constitutional: absent: Fatigue, Fevers Eyes: absent: Vision Changes ENT: absent: Hearing Changes Respiratory: absent: SOB, Cough Cardiovascular: absent: Chest Pain Gastrointestinal: absent: Abdominal Pain, Diarrhea, Nausea, Vomiting Musculoskeletal: Arthralgias, Joint Swelling. absent: Back Pain, Neck Pain, Myalgias Skin: absent: Rash, Pruritis Neurological: absent: Headache, Dizziness, Focal Weakness Psychiatric: absent: Anxiety, Depression, Suicidal Ideation Physical Exam - Systems Exam Head: Present: Atraumatic, Normocephalic Pupils: Present: PERRL Extroacular Muscles: Present: EOMI Conjunctiva: Present: Normal Mouth: Present: Moist Mucous Membranes Neck: Present: Normal Range of Motion Respiratory/Chest: Present: Clear to Auscultation, Good Air Exchange. No: Respiratory Distress, Accessory Muscle Use Cardiovascular: Present: Regular Rate and Rhythm, Normal S1, S2. No: Murmurs Abdomen: No: Tenderness, Distention, Peritoneal Signs Back: Present: Normal Inspection Upper Extremity: Present: Normal Inspection, Normal ROM, NORMAL PULSES, Neurovascularly Intact, Capillary Refill < 2s. No: Cyanosis, Edema, Tenderness, Swelling, Erythema, Deformity Lower Extremity: Present: Normal Inspection, NORMAL PULSES, Normal ROM, Neurovascularly Intact, Capillary Refill < 2 s, Other (LLE: mild +ttp on the anterior lateral knee with no swelling, negative alesha and vera signs, no other tenderness or swelling, FROM without limitation, sensation intact, motor 5/5, +DPPT pulses, capillary refill< 2 seconds, neurovascular intact. ). No: Edema, Deformity Neurological: Present: GCS=15, CN II-XII Intact, Speech Normal Skin: Present: Warm, Dry, Normal Color. No: Rashes Psychiatric: Present: Alert, Oriented x 3, Normal Insight, Normal Concentration Medical Decision Making ED Course and Treatment: 01/22/18 10:09 -Lt. knee xray -Percocet -Observe and reassess 01/22/18 11:52 -Lt.knee xray show no fracture or dislocation. -Pt. request pmd to be contacted. Pt. is stable to be discharged home. -I spoke to Dr. Azeem Quinonez discussed about the case/xray, stated that the patient can be discharged home and doesn't need gusman as this would causes infection, agreed that the patient to be discharged home and follow up with him. -I discussed with the patient and she agreed to be discharged home. CARLOS wrap applied with neurovascular intact. -Discharge home with education on continue your tylenol and other narcotic pain meds at home, carlos wrap, ice pack, follow up with your own pmd and Dr. Harris within 2 days, return to the ER for any new or worsening signs or symptoms. - RAD Interpretation Radiology Orders: Date of service: 01/22/2018 PROCEDURE: Left Knee and patella radiographs. HISTORY: Pain. COMPARISON: None. FINDINGS: BONES: Normal. No fracture. JOINTS: Normal. No osteoarthritis. JOINT EFFUSION: None. OTHER FINDINGS: None. IMPRESSION: Normal radiographs of the left knee. Six Sigma Black Trainer: Radiologist - PA / ENERGY CONSERVATION DIRECTOR / Resident Statement /DO has reviewed & agrees with the documentation as recorded. Disposition/Present on Arrival - Present on Arrival Any Indicators Present on Arrival: No History of DVT/PE: No History of Uncontrolled Diabetes: No Urinary Catheter: Yes History of Decub. Ulcer: No History Surgical Site Infection Following: Orthopedic Procedures - Disposition Have Diagnosis and Disposition been Completed?: Yes Diagnosis: Knee injury, Knee pain Disposition: HOME/ ROUTINE Disposition Time: 11:35 Patient Plan: Discharge Patient Problems: Current Active Problems Problem Status Onset Knee injury Acute Knee pain Acute Condition: IMPROVED Additional Instructions: -Discharge home with education on continue your tylenol and other narcotic pain meds at home, carlos wrap, ice pack, follow up with your own pmd and Dr. Harris within 2 days, return to the ER for any new or worsening signs or symptoms. Referrals: Tripp King MD [Primary Care Provider] - Follow up with primary Pedro Harris MD [Staff Provider] - Follow up with primary Forms: [employer] ([place]), WORK NOTE
[2018-01-22] MEDS ORDERED: Oxycodone/Acetaminophen 5/325 mg Tab PO STA (10:02)
[2018-01-22 10:25] VITALS: BP 112/52; RESP 16; TEMP 97.8
--- NOTE | 2018-01-22 11:32 | RAD ---
Date of service: 01/22/2018 PROCEDURE: Left Knee and patella radiographs. HISTORY: Pain. COMPARISON: None. FINDINGS: BONES: Normal. No fracture. JOINTS: Normal. No osteoarthritis. JOINT EFFUSION: None. OTHER FINDINGS: None. IMPRESSION: Normal radiographs of the left knee.
[2018-01-22 12:21] VITALS: PULSE 66; O2SAT 96
== END 2018-01-22 13:49 | disposition home or self-care (01) ==
LOC: ED 09:30
DX: M25.562 Pain in left knee (principal); S89.92XA Unspecified injury of left lower leg, initial encounter; W10.9XXA Fall (on) (from) unspecified stairs and steps, initial encounter; E11.9 Type 2 diabetes mellitus without complications; I50.9 Heart failure, unspecified; I10 Essential (primary) hypertension; J44.9 Chronic obstructive pulmonary disease, unspecified

== ENCOUNTER 2018-01-28 15:39 | Emergency (ER) | payer MEDICARE, OTHER ==
[2018-01-28 15:39] VITALS: PULSE 150
[2018-01-28 15:46] VITALS: RESP 18; BMI 19.1
--- NOTE | 2018-01-28 16:44 | ED PDOC ---
Arrival/HPI - General Chief Complaint: Lower Extremity Problem/Injury Time Seen by Provider: 01/28/18 15:56 Historian: Patient - History of Present Illness Narrative History of Present Illness (Text): 01/28/18 16:08 67 year old female, whose past medical history includes ulcerative colitis/copd/chf/lt. femur fx/chronic lumbar compression fracture and chronic rt. humerus fracture/dm/cardiomyapthy, allergic to aspirin/heparin/benadryl, who presents to the emergency department requesting gusman cathether placement and knee pain/ seen in er few day sago with neg xr. pt seen to be flexing knee and hip in nad in er. also reports a "sacral ulcer" state ortho sent pt in. PMD: Dr. Olvera 01/28/18 20:28 01/28/18 20:28 Time/Duration: Other (pt notes her leg gave out on Sunday) Symptom Onset: Sudden Symptom Course: Unchanged Activities at Onset: Light Past Medical History - Provider Review Nursing Documentation Reviewed: Yes - Past History Past History: Non-Contributing - Infectious Disease Hx of Infectious Diseases: None - Tetanus Immunization Tetanus Immunization: Up to Date, Unknown - Cardiac Hx Cardiac Disorders: Yes Hx Congestive Heart Failure: Yes Hx Hypertension: Yes - Pulmonary Hx Respiratory Disorders: Yes Hx Chronic Obstructive Pulmonary Disease (COPD): Yes - Neurological Hx Neurological Disorder: Yes (syncope ams) Hx Dizziness: Yes - HEENT Hx HEENT Disorder: Yes (eyeglasses) - Renal Hx Renal Disorder: No - Endocrine/Metabolic Hx Endocrine Disorders: Yes Hx Diabetes Mellitus Type 2: Yes - Hematological/Oncological Hx Blood Disorders: Yes Hx Anemia: Yes - Integumentary Hx Dermatological Disorder: Yes - Musculoskeletal/Rheumatological Hx Musculoskeletal Disorders: Yes Hx Falls: Yes Other/Comment: NON UNION - Gastrointestinal Hx Gastrointestinal Disorders: Yes - Genitourinary/Gynecological Hx Genitourinary Disorders: Yes Hx Urinary Tract Infection: Yes - Psychiatric Hx Psychophysiologic Disorder: Yes Hx Anxiety: Yes Hx Bipolar Disorder: Yes Hx Depression: Yes Hx Substance Use: Yes (H/O OD.) - Past Surgical History Past Surgical History: Non-Contributing - Surgical History Hx Mastectomy: No - Anesthesia Hx Anesthesia: Yes Hx Anesthesia Reactions: Yes Hx Malignant Hyperthermia: No - Suicidal Assessment Feels Threatened In Home Enviroment: No Family/Social History - Physician Review Nursing Documentation Reviewed: Yes Family/Social History: No Known Family HX Smoking Status: Heavy Smoker > 10 Cigarettes Daily Hx Alcohol Use: Yes (H/O) Amount per day: 3 Hx Substance Use: Yes (H/O OD.) Hx Substance Use Treatment: No Allergies/Home Meds Allergies/Adverse Reactions: Allergies diphenhydramine HCl [From Benadryl] Allergy (Verified 01/22/18 09:42) SHORTNESS OF BREATH IV AND BLOOD PRESSURE LOW heparin Allergy (Verified 01/22/18 09:42) RASH aspirin Adverse Reaction (Verified 01/22/18 09:42) SHORTNESS OF BREATH anesthesia Allergy (Intermediate, Uncoded 01/22/18 09:42) RASH anesthetic agents Allergy (Mild, Uncoded 01/22/18 09:42) ANAPHYLAXIS Pt states she went into Cardiac arrest from anesthetics Home Medications: Home Meds Medication Instructions Recorded Confirmed RX: Alprazolam [Alprazolam Xr] 0.5 mg PO TID 06/26/17 11/25/17 RX: Nystatin [Mycostatin] 100,000 unit PO PRN 06/26/17 11/25/17 RX: Ondansetron HCl [Zofran] 4 mg PO PRN PRN 06/26/17 11/25/17 RX: Pantoprazole [Protonix EC Tab] 40 mg PO DAILY 06/26/17 11/25/17 RX: Paroxetine HCl [Paxil] 10 mg PO DAILY 06/26/17 11/25/17 Review of Systems - Physician Review All systems were reviewed & negative as marked: Yes Physical Exam Vital Signs Reviewed: Yes Vital Signs Temp Pulse Resp BP Pulse Ox 01/28/18 15:46 97.9 F 64 18 119/60 98 Temperature: Afebrile Blood Pressure: Normal Pulse: Regular Respiratory Rate: Normal Appearance: Positive for: Well-Appearing, Non-Toxic, Comfortable Pain Distress: Mild Mental Status: Positive for: Alert and Oriented X 3 - Systems Exam Head: Present: Atraumatic, Normocephalic Pupils: Present: PERRL Extroacular Muscles: Present: EOMI Conjunctiva: Present: Normal Mouth: Present: Moist Mucous Membranes Neck: Present: Normal Range of Motion Respiratory/Chest: Present: Clear to Auscultation, Good Air Exchange. No: Respiratory Distress, Accessory Muscle Use Cardiovascular: Present: Regular Rate and Rhythm, Normal S1, S2. No: Murmurs Abdomen: No: Tenderness, Distention, Peritoneal Signs Back: Present: Normal Inspection Upper Extremity: Present: Normal Inspection. No: Cyanosis, Edema Lower Extremity: Present: Normal Inspection. No: Edema Neurological: Present: GCS=15, CN II-XII Intact, Speech Normal Skin: Present: Warm, Dry, Normal Color. No: Rashes Psychiatric: Present: Alert, Oriented x 3, Normal Insight, Normal Concentration Medical Decision Making ED Course and Treatment: 01/28/18 16:08 Impression: 67 year old female who presents to the emergency department requesting Gusman catheter placement. Differential Diagnosis included but are not limited to: Plan: -- CT of left knee without contrast -- X-Ray of hip min 4v w/Pelvis LT -- Reassess and disposition Prior Visits: Notes and results from previous visits were reviewed. Patient was last seen in the emergency department on 01/22/18 biba c/o lt. knee pain s/p fall on the left knee yesterday. Pt was discharged home in improved condition, given instructions for care and directed to follow up with PMD within 2 days. Progress Notes: neg recent xr. offered ct scan of knee to r/o occult fx and imaging of hip. pt with minimal stage 1 sacral decub, no infection. pt states dr olvera to eval in er, however paged dr العراقي states he did not request pt to be sent in. paged pmd jane agrees to outpt manamgent. pt then refuses any imaging signs ama. 01/28/18 20:29 - RAD Interpretation Radiology Orders: 01/28/18 16:13 KNEE WITHOUT CONTRAST LEFT [CT] Stat HIP MIN 4V W/ PELVIS LT [RAD] Stat - Scribe Statement The provider has reviewed the documentation as recorded by the Scribe Gena Sharma All medical record entries made by the Scribe were at my direction and personally dictated by me. I have reviewed the chart and agree that the record accurately reflects my personal performance of the history, physical exam, medical decision making, and the department course for this patient. I have also personally directed, reviewed, and agree with the discharge instructions and disposition. Disposition/Present on Arrival - Present on Arrival Any Indicators Present on Arrival: No History of DVT/PE: No History of Uncontrolled Diabetes: No Urinary Catheter: Yes History of Decub. Ulcer: No History Surgical Site Infection Following: Orthopedic Procedures - Disposition Have Diagnosis and Disposition been Completed?: Yes Diagnosis: Left against medical advice, Hip pain, Knee pain, Pressure ulcer Disposition: AGAINST MEDICAL ADVICE Disposition Time: 07:00 Condition: UNKNOWN Discharge Instructions (ExitCare): Pressure Sores, How to Prevent Pressure Sores, Chronic Knee Pain, Hip Pain, Leaving Against Medical Advice Additional Instructions: you are refusing imaging and workup in the er. return to any er with worsening. follow up with your doctor/clinic. Forms: [employer] (Estonian) Against Medical Advice - AMA Patient Left Against Medical Advice: The patient declines admission to the hospital and wishes to leave the Emergency Department. This action is against my medical advice. This decision was made with informed refusal. The patient was told that admission to the hospital is ne cessary. Explanation of the reasons why were discussed. The risks of leaving were explained to the patient and include, but are not limited to, worsening of known or currently unknown conditions, permanent disability and from undiagnosed or untreated conditions. The patient has the capacity to make this informed decision and understands my explanation of the current medical problem and risks of leaving. The patient voluntarily accepts these risks and signed an AMA form documenting our conversation. The patient was given the opportunity to ask questions and reconsider. The patient was encouraged to return to the Emergency Department at any time for further care.
[2018-01-28 20:04] VITALS: BP 120/60; PULSE 61; TEMP 98; O2SAT 100
== END 2018-01-28 19:15 | disposition left against medical advice (07) ==
LOC: ED 15:39
DX: M25.562 Pain in left knee (principal); M25.552 Pain in left hip; L89.159 Pressure ulcer of sacral region, unspecified stage

== ENCOUNTER 2018-06-17 11:27 | Inpatient (IN) | payer MEDICARE, OTHER ==
[2018-06-17 11:29] VITALS: PULSE 150
[2018-06-17] MEDS ORDERED: Albuterol-Ipratrop 3 mg / 0.5 (3 ml) UD IH STA (11:51)
--- NOTE | 2018-06-17 12:25 | ED PDOC ---
Arrival/HPI - General Chief Complaint: Cough, Cold, Congestion Time Seen by Provider: 06/17/18 11:30 Historian: Patient - History of Present Illness Narrative History of Present Illness (Text): 06/17/18 12:27 67 y/o female with PMH of COPD, CHF, ITP, Ulcerative Colitis, Chronic Right Humerus Fx, presents to the ED c/o SOB x 3 days. Associated productive cough and chest congestion x 1 month. Pt is having difficulty expectorating the phlegm she feels in her chest. Has been taking her home medications as prescribed. Denies fever, chills, chest pain, nausea, vomiting, abdominal pain, back pain, neck pain, headache, dizziness, syncope, or any other associated symptoms. Paleologist: Dr. Schulte PMD: Dr. Spicer Past Medical History - Provider Review Nursing Documentation Reviewed: Yes - Past History Past History: Non-Contributing - Infectious Disease Hx of Infectious Diseases: None - Tetanus Immunization Tetanus Immunization: Up to Date, Unknown - Cardiac Hx Cardiac Disorders: Yes Hx Congestive Heart Failure: Yes Hx Hypertension: Yes - Pulmonary Hx Respiratory Disorders: Yes Hx Chronic Obstructive Pulmonary Disease (COPD): Yes - Neurological Hx Neurological Disorder: Yes (syncope ams) Hx Dizziness: Yes - HEENT Hx HEENT Disorder: Yes (eyeglasses) - Renal Hx Renal Disorder: No - Endocrine/Metabolic Hx Endocrine Disorders: Yes Hx Diabetes Mellitus Type 2: Yes - Hematological/Oncological Hx Blood Disorders: Yes Hx Anemia: Yes - Integumentary Hx Dermatological Disorder: Yes - Musculoskeletal/Rheumatological Hx Musculoskeletal Disorders: Yes Hx Falls: Yes Other/Comment: NON UNION - Gastrointestinal Hx Gastrointestinal Disorders: Yes - Genitourinary/Gynecological Hx Genitourinary Disorders: Yes Hx Urinary Tract Infection: Yes - Psychiatric Hx Psychophysiologic Disorder: Yes Hx Anxiety: Yes Hx Bipolar Disorder: Yes Hx Depression: Yes Hx Substance Use: Yes (H/O OD.) - Past Surgical History Past Surgical History: Non-Contributing - Surgical History Hx Mastectomy: No - Anesthesia Hx Anesthesia: Yes Hx Anesthesia Reactions: Yes Hx Malignant Hyperthermia: No - Suicidal Assessment Feels Threatened In Home Enviroment: No Family/Social History - Physician Review Nursing Documentation Reviewed: Yes Family/Social History: No Known Family HX Smoking Status: Heavy Smoker > 10 Cigarettes Daily Hx Alcohol Use: Yes (H/O) Amount per day: 3 Hx Substance Use: Yes (H/O OD.) Hx Substance Use Treatment: No Allergies/Home Meds Allergies/Adverse Reactions: Allergies diphenhydramine HCl [From Benadryl] Allergy (Verified 06/17/18 20:23) SHORTNESS OF BREATH IV AND BLOOD PRESSURE LOW heparin Allergy (Verified 06/17/18 20:23) RASH aspirin Adverse Reaction (Verified 06/17/18 20:23) SHORTNESS OF BREATH anesthesia Allergy (Intermediate, Uncoded 06/17/18 20:23) RASH anesthetic agents Allergy (Mild, Uncoded 06/17/18 20:23) ANAPHYLAXIS Pt states she went into Cardiac arrest from anesthetics Home Medications: Home Meds Medication Instructions Recorded Confirmed Alprazolam [Xanax] 0.5 mg PO QID 06/17/18 06/17/18 Ondansetron HCl [Zofran] 8 mg PO BID 06/17/18 06/17/18 Solifenacin Succinate [Vesicare] 5 mg PO DAILY 06/17/18 06/17/18 Zolpidem [Ambien] 5 mg PO HS 06/17/18 06/17/18 Review of Systems - Review of Systems Constitutional: Normal. absent: Fevers Eyes: Normal. absent: Vision Changes ENT: Normal. absent: Sore Throat, Sinus Congestion Respiratory: SOB, Cough, Sputum. absent: Wheezing Cardiovascular: Normal. absent: Chest Pain, Palpitations, Syncope Gastrointestinal: Normal. absent: Abdominal Pain, Stool Changes, Nausea, Vomiting, Appetite Changes Genitourinary Female: Normal. absent: Dysuria, Frequency Musculoskeletal: Normal. absent: Back Pain, Neck Pain Skin: Normal. absent: Rash Neurological: Normal. absent: Headache, Dizziness Physical Exam Vital Signs Reviewed: Yes Vital Signs Temp Pulse Resp BP Pulse Ox 06/17/18 11:40 98.9 F 89 18 107/61 97 Temperature: Afebrile Blood Pressure: Normal Pulse: Regular Respiratory Rate: Normal Appearance: Positive for: Well-Appearing, Non-Toxic, Comfortable Pain Distress: None Mental Status: Positive for: Alert and Oriented X 3 - Systems Exam Head: Present: Atraumatic, Normocephalic Pupils: Present: PERRL Extroacular Muscles: Present: EOMI Conjunctiva: Present: Normal Mouth: Present: Dry Neck: Present: Normal Range of Motion. No: Meningeal Signs Respiratory/Chest: Present: Wheezes (bilaterally, inspiratory and expiratory), Decreased Breath Sounds (bilaterally), Rales (bilateral bases). No: Respiratory Distress, Accessory Muscle Use, Tachypneic Cardiovascular: Present: Regular Rate and Rhythm, Normal S1, S2, Peripheal Pulses Present Abdomen: Present: Normal Bowel Sounds. No: Tenderness, Distention, Peritoneal Signs, Rebound, Guarding Back: Present: Normal Inspection. No: CVA Tenderness Upper Extremity: Present: NORMAL PULSES, Neurovascularly Intact, Capillary Refill < 2s, Other (chronic right upper arm deformity secondary to old humerus fracture). No: Cyanosis, Edema Lower Extremity: Present: Normal Inspection, NORMAL PULSES, Normal ROM, Neurovascularly Intact, Capillary Refill < 2 s. No: Edema, Temperature Abnormalties Neurological: Present: GCS=15, CN II-XII Intact, Speech Normal, Motor Func Grossly Intact, Normal Sensory Function, Gait Normal Skin: Present: Warm, Dry, Normal Color. No: Rashes Psychiatric: Present: Alert, Oriented x 3, Normal Insight, Normal Concentration, Normal Affect, Normal Mood Medical Decision Making ED Course and Treatment: 06/17/18 12:11 Initial Plan: * CBC, CMP * Coags * Cardiac Iso * Mg, Phos * BNP * Solumedrol * Duoneb * EKG * CXR Bloodwork reviewed, significant for low magnesium. Will replete with 2g Mg sulfate. CXR shows no active disease Pending troponin and BNP 13:52 Troponin elevated at 0.18, call placed to patient's sales advisor Dr. Schulte. Pt denies chest pain. Case discussed with ED attending Dr. Foster Patient reports improvement in SOB with steroids and duoneb. BNP markedly elevated. Lasix held secondary to hypotension 14:[address] Schulte who reviewed diagnostic testing. States this is most like non-obstructing cardiac disease Advised dobutamine 5mcg/kg and lovenox 1mg/kg bid. Advises no ASA secondary to history of ITP. 14:[address] King who accepted patient for inpatient telemetry admission with diagnosis of CHF exacerbation, COPD, and elevated troponin. Pt updated with change in disposition. Resting comfortably in stretcher with stable vitals at t his time. Patient refusing lovenox. Educated on importance of anticoagulation, but patient refuses. - Lab Interpretations Lab Results: 06/17/18 12:45 04/29/19 12:45 Lab Results 06/17/18 12:55: pO2 21 L, VBG pH 7.41, VBG pCO2 40.0, VBG HCO3 25.4, VBG Total CO2 26.6, VBG O2 Sat (Calc) 42.4, VBG Base Excess 0.7, VBG Potassium 4.0, Glucose 96, Lactate 0.9, FiO2 21.0, Crit Value Called To Rn, Crit Value Called By Ct, Blood Gas Notified Time 1304, Sodium 133.0, Chloride 100.0, Venous Blood Potassium 4.0 06/17/18 12:45: Influenza Typ A,B (EIA) Negative for flu a/b 06/17/18 12:45: PT 13.0 H, INR 1.15, APTT 41.2 H 06/17/18 12:45: Sodium 134, Potassium 4.1, Chloride 99, Carbon Dioxide 24, Anion Gap 14, BUN 14, Creatinine 0.7, Est GFR ( Amer) > 60, Est GFR (Non-Af Amer) > 60, Random Glucose 97, Calcium 9.5, Magnesium 1.6 L, Total Bilirubin 0.7, AST 22, ALT 8, Alkaline Phosphatase 112, Lactate Dehydrogenase 418, Total Creatine Kinase 30 L, Troponin I 0.18 H* D, NT-Pro-B Natriuret Pep 15421 H, Total Protein 7.8, Albumin 4.1, Globulin 3.6, Albumin/Globulin Ratio 1.1 06/17/18 12:45: WBC 6.7, RBC 3.54, Hgb 12.0 D, Hct 36.1, MCV 102.0 D, MCH 33.9, MCHC 33.2, RDW 12.9, Plt Count 183, MPV 8.9, Neut % (Auto) 81.1 H, Lymph % (Auto) 7.8 L, [place] % (Auto) 10.4 H, Eos % (Auto) 0.5 L, Baso % (Auto) 0.2, Lymph # (Auto) 0.5 L, [place] # (Auto) 0.7 H, Eos # (Auto) 0.0, Baso # (Auto) 0.01, Absolute Neuts (auto) 5.40 I have reviewed the lab results: Yes - RAD Interpretation Narrative RAD Interpretations (Text): CXR IMPRESSION: No active disease Radiology Orders: 06/17/18 11:52 CHEST PORTABLE [RAD] Stat School Occupational Therapist: Radiologist - EKG Interpretation Interpreted by ED Physician: Yes Type: 12 lead EKG Comparison: Similar to previous EKG - Medication Orders Current Medication Orders: Methylprednisolone (Solu-Medrol) 125 mg IVP STAT STA Stop: 06/17/18 11:55 Discontinued Medications Albuterol/Ipratropium (Duoneb 3 Mg/0.5 Mg (3 Ml) Ud) 3 ml IH STAT STA Stop: 06/17/18 11:52 Disposition/Present on Arrival - Present on Arrival Any Indicators Present on Arrival: Yes History of DVT/PE: No History of Uncontrolled Diabetes: No Urinary Catheter: Yes History of Decub. Ulcer: No History Surgical Site Infection Following: Orthopedic Procedures - Disposition Have Diagnosis and Disposition been Completed?: Yes Diagnosis: CHF exacerbation, COPD (chronic obstructive pulmonary disease), Elevated troponin Disposition: HOSPITALIZED Disposition Time: 14:30 Patient Plan: Admission Patient Problems: Current Active Problems Problem Status Onset CHF exacerbation Acute COPD (chronic obstructive pulmonary disease) Acute Elevated troponin Acute Condition: STABLE
--- NOTE | 2018-06-17 12:52 | RAD ---
Date of service: 06/17/2018 HISTORY: cough, congestion COMPARISON: 11/21/2017 TECHNIQUE: 1 view obtained. FINDINGS: LUNGS: No active pulmonary disease. PLEURA: No significant pleural effusion identified, no pneumothorax apparent. CARDIOVASCULAR: Mild aortic tortuosity Mild cardiomegaly no pulmonary vascular congestion. OSSEOUS STRUCTURES: No significant abnormalities. VISUALIZED UPPER ABDOMEN: Normal. OTHER FINDINGS: None. IMPRESSION: No active disease.
[2018-06-17 13:03] LABS: BASO # 0.01 K/mm3 (0.0-2.0); BASO % 0.2 % (0.0-3.0); EOS % 0.5 % (1.5-5.0); LYMPH # 0.5 (1.2-3.4); LYMPH % 7.8 % (22.0-35.0); MEAN CORPUSCULAR HEMOGLOBIN 33.9 pg (25.0-35.0); MEAN CORPUSCULAR HGB CONC 33.2 g/dl (31.0-37.0); MEAN PLATELET VOLUME 8.9 fl (7.0-11.0); MONO # 0.7 (0.1-0.6); MONO % 10.4 % (1.0-6.0); RBC 3.54 10^6/uL (3.5-6.1); RED CELL DISTRIBUTION WIDTH 12.9 % (11.5-14.5); WHITE BLOOD COUNT 6.7 10^3/uL (4.5-11.0)
[2018-06-17 13:03] LABS: VENOUS BLOOD GAS BASE EXCESS 0.7 mmol/L (0.0-2.0); VENOUS BLOOD GAS PO2 21 mm/Hg (30-55); VENOUS BLOOD PH 7.41 (7.32-7.43)
[2018-06-17 13:12] LABS: INR 1.15; PARTIAL THROMBOPLASTIN TIME 41.2 Seconds (26.9-38.3)
[2018-06-17 13:14] LABS: ALB/GLOB RATIO 1.1 (1.1-1.8); ALBUMIN 4.1 g/dL (3.0-4.8); ALT/SGPT 8 U/L (7-56); AST/SGOT 22 U/L (14-36); BLOOD UREA NITROGEN 14 mg/dL (7-21); CALCIUM 9.5 mg/dL (8.4-10.5); GFR NON-AFRICAN AMERICAN > 60
[2018-06-17] MEDS ORDERED: Magnesium Sulfate 2 gm/50 ml 2 GM/50 ML BAG IVPB ONE (13:15)
[2018-06-17 13:48] LABS: B-TYPE NATRIURETIC PEPTIDE 25700 pg/mL (0-450); TROPONIN I 0.18 ng/mL
[2018-06-17] MEDS ORDERED: DOBUTamine 500mg/250ml D5W 500 MG/250 ML BAG IV PRN (14:31)
[2018-06-17] MEDS: DOBUTamine 500mg/250ml D5W 500 MG/250 ML BAG IV PRN (16:52)
[2018-06-17 20:43] VITALS: BMI 17.7
[2018-06-17] MEDS ORDERED: Pneumococcal 23-Valent Vaccine IM ONE (20:43)
[2018-06-18 06:35] LABS: PH,URINE 5.5 (4.7-8.0); URINE BILIRUBIN NEGATIVE (NEGATIVE); URINE BLOOD NEGATIVE (NEGATIVE); URINE GLUCOSE (UA) NEGATIVE (NEGATIVE); URINE LEUKOCYTE ESTERASE NEGATIVE Leu/uL (NEGATIVE); URINE PROTEIN NEGATIVE mg/dL (<30 mg/dL); URINE UROBILINOGEN 0.2 E.U./dL (<1 E.U./dL)
[2018-06-18 06:40] LABS: URINE APPEARANCE CLEAR (CLEAR); URINE COLOR YELLOW (YELLOW)
--- NOTE | 2018-06-18 09:27 | CARD ---
APPROVED REPORT Date of service: 06/17/2018 EKG Measurement Heart [id number] <Conclusion> Normal sinus rhythm Left axis deviation Left bundle branch block Abnormal ECG
--- NOTE | 2018-06-18 10:28 | CP.PCM.PCO ---
Physician Communication Note - Physician Communication Note Physician Communication Note: continue Dobutamine as per cardiology
[2018-06-18] MEDS: guaiFENesin 200 mg/10 ml Syrup UD PO PRN ×2 (14:49→20:28)
--- NOTE | 2018-06-18 22:09 | PN ---
DATE: 06/18/2018 The patient was seen this Sunday morning in room 368, bed 2 with her /spouse equivalent Nickolas at the bedside. SUBJECTIVE: She is awake, alert, clear and in good spirits, feels well. No longer feels short of breath or uncomfortable. She said she actually came to the emergency room because of a sharp knife-like pain under the left scapula, which has been quieting down, still bothers her sometimes when she turns and moves her left arm. PHYSICAL EXAMINATION LUNGS: Decreased breath sounds with COPD, but no rales or rhonchi. HEART: Not tachycardiac. ABDOMEN: Soft. EXTREMITIES: Thin without edema. ASSESSMENT AND PLAN: We will continue to monitor her overnight and discuss with Cardiology in the morning. The patient requests to reschedule her medications. Her Xanax is scheduled for every 10 p.m. and 6 a.m. and a.m. and p.m. along with Ambien at bedtime. We will comply and look for discharge tomorrow. Tripp King MD
[2018-06-18] MEDS: DOBUTamine 500mg/250ml D5W 500 MG/250 ML BAG IV PRN (22:15)
[2018-06-19] MEDS: guaiFENesin 200 mg/10 ml Syrup UD PO PRN ×5 (00:15→22:11)
[2018-06-19 09:10] LABS: BASO # 0.01 K/mm3 (0.0-2.0); BASO % 0.1 % (0.0-3.0); EOS % 0.1 % (1.5-5.0); LYMPH # 0.6 (1.2-3.4); LYMPH % 8.8 % (22.0-35.0); MEAN CORPUSCULAR HEMOGLOBIN 34.2 pg (25.0-35.0); MEAN CORPUSCULAR HGB CONC 32.8 g/dl (31.0-37.0); MEAN PLATELET VOLUME 8.7 fl (7.0-11.0); MONO % 14.6 % (1.0-6.0); RBC 3.22 10^6/uL (3.5-6.1); RED CELL DISTRIBUTION WIDTH 13.2 % (11.5-14.5); WHITE BLOOD COUNT 7.1 10^3/uL (4.5-11.0)
[2018-06-19 09:37] LABS: ALB/GLOB RATIO 1.2 (1.1-1.8); ALBUMIN 3.8 g/dL (3.0-4.8); ALT/SGPT < 6 U/L (7-56); AST/SGOT 21 U/L (14-36); BLOOD UREA NITROGEN 16 mg/dL (7-21); CALCIUM 9.1 mg/dL (8.4-10.5); GFR NON-AFRICAN AMERICAN > 60
[2018-06-19] MEDS ORDERED: Albuterol-Ipratrop 3 mg / 0.5 (3 ml) UD IH STA (10:01)
--- NOTE | 2018-06-19 10:59 | CON ---
DATE: 06/18/2018 CARDIOLOGY CONSULTATION HISTORY OF PRESENT ILLNESS: The patient is a 67-year-old woman with a history of end-stage dilated cardiomyopathy, who presents with cough and dyspnea. PAST MEDICAL HISTORY: Includes COPD, end-stage dilated cardiomyopathy, chronic alcoholism. She denies chest pain. Her last ejection fraction was less than 15%. SOCIAL HISTORY: The patient lives at home with her . The patient states she does not smoke any more. REVIEW OF SYSTEMS: Negative edema, positive dyspnea, positive cough, positive malaise, positive weakness. PHYSICAL EXAMINATION: VITAL SIGNS: Blood pressure is 109/56, the heart rate is in sinus rhythm, at 110. NECK: Negative JVD. LUNGS: Decreased breath sounds bilaterally. HEART: S1, S2. EXTREMITIES: Without edema. LABORATORY DATA: EKG shows a bundle-branch block. Hemoglobin is 12. Chemistries: BUN and creatinine are 14 and 0.7. Troponin is 0.18. The proBNP is markedly elevated. IMPRESSION: 1. Acute systolic congestive heart failure. 2. End-stage dilated cardiomyopathy. 3. Dyspnea. 4. Coronary artery disease. 5. [id number] myocardial infarction. 6. Alcoholism. 7. Severe chronic obstructive pulmonary disease. RECOMMENDATIONS: Given these findings, we will start the patient on IV dobutamine as well as Lasix. Michael Schulte MD
--- NOTE | 2018-06-19 12:39 | PN ---
DATE: 06/19/2018 CARDIOLOGY FOLLOWUP SUBJECTIVE: The patient had an episode of nonsustained VT today. VT was hemodynamically insignificant. PHYSICAL EXAMINATION: GENERAL: The patient is awake, alert. VITAL SIGNS: Blood pressure is currently 99/62, heart rate is 110. NECK: Negative JVD. CARDIOPULMONARY: S1, S2. LUNGS: Decreased breath sounds. EXTREMITIES: Without edema. LABORATORY DATA: Magnesium is up to 2.1, potassium is not drawn. Hemoglobin is noted. IMPRESSION: 1. Nonsustained ventricular tachycardia. 2. Non-ST elevation myocardial infarction. 3. Coronary artery disease. 4. Chronic obstructive pulmonary disease. 5. End-stage dilated cardiomyopathy. 6. History of alcoholism. Given these findings, there is no evidence for ITP that I could found on the medical records. I have discussed this with . I have discussed the therapeutic options with Ms. Tanner as well as her . Cardiac catheterization versus medical therapy. They opt for medical therapy. We will start the patient on aspirin as well as low-dose beta blockers. I have discussed the risk of bleeding with beta-blockers and thrombocytopenia with the patient in detail. We will start her on Ecotrin 81 mg as well as Lopressor 12.5. We will monitor her platelet count as well as hemoglobin. Michael Schulte MD
[2018-06-19] MEDS: Albuterol-Ipratrop 3 mg / 0.5 (3 ml) UD IH PRN (13:39)
--- NOTE | 2018-06-19 13:50 | CP.PCM.PCO ---
Additional Comments - Additional Comments Additional Comments: Arrhythmia will await further recommendations form cardiology, continue to monitor on telemetry, repeat labs in am, reeval in am.
[2018-06-20] MEDS: guaiFENesin 200 mg/10 ml Syrup UD PO PRN ×3 (04:57→21:52)
[2018-06-20 08:18] LABS: ALB/GLOB RATIO 1.1 (1.1-1.8); ALBUMIN 3.4 g/dL (3.0-4.8); BLOOD UREA NITROGEN 17 mg/dL (7-21); CALCIUM 8.9 mg/dL (8.4-10.5); GFR NON-AFRICAN AMERICAN > 60
[2018-06-20 08:19] LABS: ALT/SGPT 7 U/L (7-56); AST/SGOT 19 U/L (14-36)
[2018-06-20 09:24] LABS: BASO # 0.01 K/mm3 (0.0-2.0); BASO % 0.1 % (0.0-3.0); EOS % 0.2 % (1.5-5.0); HEMOGLOBIN 10.9 g/dL (12.0-16.0); LYMPH # 0.6 (1.2-3.4); LYMPH % 6.8 % (22.0-35.0); MEAN CELL VOLUME 104.3 fl (80.0-105.0); MEAN CORPUSCULAR HEMOGLOBIN 33.7 pg (25.0-35.0); MEAN CORPUSCULAR HGB CONC 32.3 g/dl (31.0-37.0); MONO # 1.1 (0.1-0.6); MONO % 13.2 % (1.0-6.0); RBC 3.23 10^6/uL (3.5-6.1); RED CELL DISTRIBUTION WIDTH 13.1 % (11.5-14.5); WHITE BLOOD COUNT 8.2 10^3/uL (4.5-11.0)
[2018-06-20] MEDS: cefTRIAXone 1 gm 1 GM/100 ML BAG IV SCH (10:13)
--- NOTE | 2018-06-20 10:26 | PN ---
DATE: 06/20/2018 SUBJECTIVE: The patient is off dobutamine, is feeling well. No dyspnea noted. PHYSICAL EXAMINATION: VITAL SIGNS: Blood pressure 97/66, heart rate is in the 80s. NECK: Negative JVD. LUNGS: Without rales. HEART: S1, S2. EXTREMITIES: Without edema. LABORATORY DATA: Hemoglobin is 10.9. Chemistries; BUN and creatinine are unremarkable. IMPRESSION: 1. Resolution of congestive heart failure. 2. The patient is off dobutamine. 3. End-stage dilated cardiomyopathy. 4. Minimal elevated troponin. 5. Cachexia. 6. Weakness. PLAN: Given these findings, the patient is refusing catheterization. We will treat medically. The patient is on low-dose beta blockers which she is tolerating. We will continue on aspirin and beta blockers. From a cardiac perspective, the patient can be discharged. Michael Schulte MD
[2018-06-20] MEDS: Albuterol-Ipratrop 3 mg / 0.5 (3 ml) UD IH PRN ×2 (10:48→13:37)
--- NOTE | 2018-06-20 13:29 | CP.PCM.PCO ---
Physician Communication Note - Physician Communication Note Physician Communication Note: PT eval pending
[2018-06-21] MEDS: guaiFENesin 200 mg/10 ml Syrup UD PO PRN ×2 (05:28→11:11)
[2018-06-21 05:42] VITALS: PULSE 74; O2SAT 95
--- NOTE | 2018-06-21 10:29 | RAD ---
Date of service: 06/21/2018 HISTORY: wet cough, copd, h/o chf COMPARISON: 06/17/2018 TECHNIQUE: Chest PA and lateral views FINDINGS: LUNGS: There is an infiltrate in the left posterior lower lobe seen best on the lateral film PLEURA: No significant pleural effusion identified. No pneumothorax apparent. CARDIOVASCULAR: No aortic atherosclerotic calcification present. Mild to moderate cardiomegaly mild vascular congestion OSSEOUS STRUCTURES: No significant abnormalities. VISUALIZED UPPER ABDOMEN: Normal. OTHER FINDINGS: None. IMPRESSION: Posterior left lower lobe infiltrate consistent with pneumonia
--- NOTE | 2018-06-21 10:34 | PN ---
DATE: 06/20/2018 SUBJECTIVE: The patient was seen this morning in room 268, bed 2 with her /spouse equivalent, Nickolas at the bedside. She is awake, alert, clear, in good spirits, but has a wet nonproductive cough. She feels better. I spoke with her about her discussion with Dr. 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 The patient is opted for medical treatment. She is on aspirin and beta-elly. PHYSICAL EXAMINATION LUNGS: Show good aeration right and left with decreased breath sounds with severe COPD. HEART: Regular, not tachycardic at this time. PLAN: We will give an empiric dose of Rocephin at this time because of that wet productive cough, which she says predates her arrival to [facility] and was the cause of some of her back pain prompting this admission. We will check her chest x-ray once again, her admission chest x-ray did not show any infiltrates. I spoke with the patient about discharge planning. She is actually hoping for discharge to home tomorrow. We will see if that is possible based on labs and x-ray results. Tripp King MD
[2018-06-21] MEDS: cefTRIAXone 1 gm 1 GM/100 ML BAG IV SCH (11:11)
[2018-06-21 13:01] VITALS: BP 100/50; RESP 18; TEMP 98.2
--- NOTE | 2018-06-21 14:43 | PN ---
DATE: 06/21/2018 SUBJECTIVE: The patient is feeling well, complaining of everything. PHYSICAL EXAMINATION: VITAL SIGNS: Blood pressure 107/61, heart rate is in the 70s. NECK: Negative JVD. LUNGS: Decreased breath sounds. HEART: Reveals S1, S2. EXTREMITIES: Without edema. LABORATORY DATA: Hemoglobin is 10.9. Chemistries, BUN and creatinine are unremarkable. Chest x-ray reveals a posterior pneumonia. IMPRESSION: 1. Pneumonia. 2. Recent non-ST elevation myocardial infarction. 3. End-stage dilated cardiomyopathy. 4. Congestive heart failure is resolved. 5. History of severe alcoholism. PLAN: Given these findings, the patient is currently on antibiotics and is in her usual cantankerous self. The patient is scheduled for discharge. Michael Schulte MD
--- NOTE | 2018-06-22 12:46 | DS ---
HISTORY OF PRESENT ILLNESS: This is a 67-year-old woman who came to the emergency room because of cough and worsening shortness of breath and left-sided infrascapular pain diagnosed with acute exacerbation of CHF. 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 Michael Schulte, treated with diuretics and within the next 24-48 hours, looked amazingly well, in fact, we contemplated discharge to home but the patient had a few bursts of ventricular tachycardia. Medications were adjusted. I spoke with Dr. Michael Schulte who offered her cardiac catheterization. She declined and requested medical treatment. The following day, , yesterday, when I came to visit the patient, she had a wet productive cough. With strong history of COPD and CHF, I gave her an empiric dose of Rocephin, requested a chest x-ray, which was done today the morning of discharge. Surprisingly, that x-ray showed a new infiltrate, not present on the initial chest x-ray, in fact, the initial chest x-ray was read as clear. No active disease. I told the patient of the findings, offered her several options, she insisted she was not staying in the hospital. Since she was afebrile with a normal white count, she had received a dose of IV Rocephin yesterday. We made arrangements for her to receive another dose of IV Rocephin today and then be discharged to home. I am marketing communications specialist this weekend, so I am available to her 11/09, all she needs to do is call the office number. Prescriptions were called for drugstore for Levaquin 500 mg #8, which will be a total of 10 days of antibiotics. She will follow up with us in the office in 3-4 days. FINAL DISCHARGE DIAGNOSES: 1. Pneumonia to left lower lobe. 2. Long history of congestive heart failure. 3. Chronic obstructive pulmonary disease. 4. Nonhealing nonunion of right humerus fracture. 5. Low ejection fraction. 6. Nonsustained ventricular tachycardia during this hospital stay. Tripp King MD [place]
== END 2018-06-21 14:27 | disposition home or self-care (01) | DRG 280 ==
LOC: ED 11:27 → ERH 14:41 → 2RNO 18:13
PROVIDERS: ADMIT Internal Medicine; ATTEND Internal Medicine
DX: I21.4 Non-ST elevation (NSTEMI) myocardial infarction (principal); I50.21 Acute systolic (congestive) heart failure; J18.9 Pneumonia, unspecified organism; J44.0 Chronic obstructive pulmonary disease with (acute) lower respiratory infection; D69.3 Immune thrombocytopenic purpura; I42.0 Dilated cardiomyopathy; K51.90 Ulcerative colitis, unspecified, without complications; I47.2 Ventricular tachycardia; R64 Cachexia; Z68.1 Body mass index [BMI] 19.9 or less, adult; S42.301K Unspecified fracture of shaft of humerus, right arm, subsequent encounter for fracture with nonunion; I11.0 Hypertensive heart disease with heart failure; E11.9 Type 2 diabetes mellitus without complications; F41.9 Anxiety disorder, unspecified; F31.9 Bipolar disorder, unspecified; I25.10 Atherosclerotic heart disease of native coronary artery without angina pectoris; F10.21 Alcohol dependence, in remission; Z88.9 Allergy status to unspecified drugs, medicaments and biological substances; Z87.891 Personal history of nicotine dependence

== ENCOUNTER 2018-07-06 13:16 | Emergency (ER) | payer MEDICARE, OTHER ==
[2018-07-06 13:17] VITALS: PULSE 150; BMI 17.7
--- NOTE | 2018-07-06 13:42 | ED PDOC ---
Arrival/HPI - General Chief Complaint: Weakness/Neurological Deficit Time Seen by Provider: 07/06/18 13:40 Historian: Patient - History of Present Illness Narrative History of Present Illness (Text): 07/06/18 13:41 Patient is a 67 yo female with COPD, CHF, chronic right humerus fracture, h/o severe alcohol and tobacco use, and h/o follicular lymphoma who presents with nausea and fatigue. Patient was just discharged from the hospital 06/21/18 after bring treated for Klebsiella pneumonia and CHF exacerbation. Patient states that she completed the course of antibiotics, and her pneumonia symptoms of cough and shortness of breath resolved. She reports she then started to take vitamins and developed nausea and diarrhea. She stopped the vitamins and the diarrhea resolved but nausea persisted. Patient says she has not been able to eat or drink much for the past few days. She is also complaining of her new medication Lopressor. She says that she has low BP at baseline and this is causing her BP to drop even more. She is complaining of generalized fatigue and weakness. She denies headache, dizziness, falls. 07/06/18 13:43 As per medical records, during her most recent hospitalization, patient had several episodes of Vtach. It was recommended she have a cardiac cath but she refused. She also did not want to stay in the hospital for IV antibiotics, so she was discharged on PO Levaquin. Time/Duration: < week Past Medical History - Provider Review Nursing Documentation Reviewed: Yes - Infectious Disease Hx of Infectious Diseases: None - Tetanus Immunization Tetanus Immunization: Up to Date, Unknown - Reproductive Menopause: Yes - Cardiac Hx Cardiac Disorders: Yes Hx Congestive Heart Failure: Yes Hx Hypertension: Yes - Pulmonary Hx Chronic Obstructive Pulmonary Disease (COPD): Yes - Neurological Hx Neurological Disorder: Yes (syncope ams) Hx Dizziness: Yes - HEENT Hx HEENT Disorder: Yes (eyeglasses) - Renal Hx Renal Disorder: No - Endocrine/Metabolic Hx Diabetes Mellitus Type 2: Yes - Hematological/Oncological Hx Blood Disorders: Yes Hx Anemia: Yes - Integumentary Hx Dermatological Disorder: Yes - Musculoskeletal/Rheumatological Hx Musculoskeletal Disorders: Yes Hx Falls: Yes Other/Comment: NON UNION - Gastrointestinal Hx Gastrointestinal Disorders: Yes - Genitourinary/Gynecological Hx Genitourinary Disorders: Yes Hx Urinary Tract Infection: Yes - Psychiatric Hx Psychophysiologic Disorder: Yes Hx Anxiety: Yes Hx Bipolar Disorder: Yes Hx Depression: Yes Hx Substance Use: Yes (H/O OD.) - Past Surgical History Past Surgical History: Non-Contributing - Surgical History Hx Mastectomy: No - Anesthesia Hx Anesthesia: Yes Hx Anesthesia Reactions: Yes Hx Malignant Hyperthermia: No - Suicidal Assessment Feels Threatened In Home Enviroment: No Family/Social History - Physician Review Nursing Documentation Reviewed: Yes Family/Social History: Unknown Family HX Smoking Status: Heavy Smoker > 10 Cigarettes Daily Hx Alcohol Use: Yes (H/O) Amount per day: 3 Hx Substance Use: Yes (H/O OD.) Hx Substance Use Treatment: No Allergies/Home Meds Allergies/Adverse Reactions: Allergies diphenhydramine HCl [From Benadryl] Allergy (Verified 06/17/18 20:23) SHORTNESS OF BREATH IV AND BLOOD PRESSURE LOW heparin Allergy (Verified 06/17/18 20:23) RASH aspirin Adverse Reaction (Verified 06/17/18 20:23) SHORTNESS OF BREATH anesthesia Allergy (Intermediate, Uncoded 06/17/18 20:23) RASH anesthetic agents Allergy (Mild, Uncoded 06/17/18 20:23) ANAPHYLAXIS Pt states she went into Cardiac arrest from anesthetics Home Medications: Home Meds Medication Instructions Recorded Confirmed Alprazolam [Xanax] 0.5 mg PO QID 06/17/18 06/17/18 Ondansetron HCl [Zofran] 8 mg PO BID 06/17/18 06/21/18 Solifenacin Succinate [Vesicare] 5 mg PO DAILY 06/17/18 06/17/18 Zolpidem [Ambien] 5 mg PO HS 06/17/18 06/17/18 Review of Systems - Review of Systems Constitutional: Fatigue. absent: Fevers Eyes: Normal ENT: Normal Respiratory: absent: SOB, Cough, Sputum Cardiovascular: absent: Chest Pain, Palpitations Gastrointestinal: Abdominal Pain (mild), Nausea, Anorexia. absent: Constipation, Diarrhea, Vomiting Genitourinary Female: absent: Dysuria, Hematuria Musculoskeletal: absent: Myalgias Skin: absent: Rash, Pruritis, Skin Lesions Neurological: absent: Headache, Dizziness, Focal Weakness Endocrine: absent: Diaphoresis Hemo/Lymphatic: absent: Adenopathy Physical Exam Vital Signs Reviewed: Yes Vital Signs Temp Pulse Resp BP Pulse Ox 07/06/18 13:31 98.4 F 67 18 80/52 L 97 Temperature: Afebrile Blood Pressure: Hypotensive Pulse: Regular Respiratory Rate: Normal Appearance: Positive for: Non-Toxic, Comfortable Pain Distress: None Mental Status: Positive for: Alert and Oriented X 3 - Systems Exam Head: Present: Atraumatic, Normocephalic Pupils: Present: PERRL Extroacular Muscles: Present: EOMI Conjunctiva: Present: Normal Mouth: Present: Dry Respiratory/Chest: Present: Clear to Auscultation, Good Air Exchange Cardiovascular: Present: Regular Rate and Rhythm, Normal S1, S2 Abdomen: No: Tenderness, Distention Back: Present: Normal Inspection Lower Extremity: Present: Edema (trace pitting b/l), Neurovascularly Intact Neurological: Present: GCS=15, CN II-XII Intact, Speech Normal Skin: Present: Warm, Dry, Normal Color Psychiatric: Present: Alert, Oriented x 3, Normal Insight, Normal Concentration Medical Decision Making ED Course and Treatment: 07/06/18 16:03 Patient is feeling better after Reglan and IVF. Her work-up does not warrant an admission at this time. Spoke to patient's PMD, Dr. King. He was updated on patient's condition and work-up. He agrees with discharge stating that he will follow-up with her as an outpatient this week. Patient was informed of this and agrees. 07/06/18 16:18 Will attempt food challenge to assess nausea. 07/06/18 16:43 Patient tolerated crackers and arianna raleigh with issues. 07/06/18 16:53 BP improved to SBP 101. Re-evaluation Time: 16:09 Reassessment Condition: Re-examined, Improved - Lab Interpretations Lab Results: 07/06/18 14:40 07/06/18 14:40 Lab Results 07/06/18 14:40: Sodium 135, Potassium 4.6, Chloride 102, Carbon Dioxide 25, Anion Gap 12, BUN 8, Creatinine 0.7, Est GFR ( Amer) > 60, Est GFR (Non- Af Amer) > 60, Random Glucose 91, Calcium 8.9, Phosphorus 3.6, Magnesium 1.7, Total Bilirubin 0.3, AST 31, ALT 20, Alkaline Phosphatase 126 D, NT-Pro-B Natriuret Pep 18204 H, Total Protein 6.1, Albumin 3.0, Globulin 3.1, Albumin/Globulin Ratio 1.0 L, Lipase 24 07/06/18 14:40: WBC 6.6, RBC 3.08 L, Hgb 10.4 L, Hct 31.3 L, MCV 101.6, MCH 33 .8, MCHC 33.2, RDW 13.5, Plt Count 246, MPV 9.0, Neut % (Auto) 79.8 H, Lymph % (Auto) 15.7 L, [place] % (Auto) 3.0, Eos % (Auto) 1.2 L, Baso % (Auto) 0.3, Lymph # (Auto) 1.0 L, [place] # (Auto) 0.2, Eos # (Auto) 0.1, Baso # (Auto) 0.02, Absolute Neuts (auto) 5.25 I have reviewed the lab results: Yes - RAD Interpretation Narrative RAD Interpretations (Text): 07/06/18 16:09 CXR- unremarkable, no active disease, no vascular congestion 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 - EKG Interpretation EKG Interpretation (Text): 07/06/18 16:09 sinus bradycardia, wide QRS, LBBB consistent with previous EKG from last admission Interpreted by ED Physician: Yes Type: 12 lead EKG Comparison: Com.w/previous EKG - Medication Orders Current Medication Orders: 07/06/18 16:10 Sodium Chloride (Sodium Chloride 0.9%) 1,000 mls @ 60 mls/hr IV .[id number] STA Stop: 07/07/18 08:19 Last Admin: 07/06/18 15:52 Dose: 60 mls/hr eMAR Start Stop Document 07/06/18 15:52 CD (Rec: 07/06/18 15:52 CD [id number]) Intravenous Solution Start Date 07/06/18 Start Time 15:52 Discontinued Medications Metoclopramide HCl (Reglan) 10 mg IVP STAT STA Stop: 07/06/18 14:24 Last Admin: 07/06/18 14:54 Dose: 10 mg IVP Administration Document 07/06/18 14:54 CD (Rec: 07/06/18 14:54 CD [id number]) Charges for Administration # of IVP Administrations 1 Disposition/Present on Arrival - Present on Arrival Any Indicators Present on Arrival: No History of DVT/PE: No History of Uncontrolled Diabetes: No Urinary Catheter: No History of Decub. Ulcer: No History Surgical Site Infection Following: None - Disposition Have Diagnosis and Disposition been Completed?: Yes Diagnosis: Dehydration, Nausea Disposition: HOME/ ROUTINE Disposition Time: 16:42 Patient Plan: Discharge Patient Problems: Current Active Problems Problem Status Onset Dehydration Acute Nausea Acute Condition: IMPROVED Discharge Instructions (ExitCare): Dehydration, Adult (DC), Nausea and Vomitin g, Adult (DC) Prescriptions: Metoclopramide [Reglan] 10 mg PO Q8H PRN #9 tab PRN Reason: Nausea/Vomiting Referrals: Tripp King MD [Family Provider] - Follow up with primary Michael Schulte MD [Staff Provider] - Follow up with primary Forms: [employer] ([place])
--- NOTE | 2018-07-06 14:20 | RAD ---
Date of service: 07/06/2018 HISTORY: cp COMPARISON: 06/21/2018 TECHNIQUE: 1 view obtained. FINDINGS: LUNGS: The previous study showed a left lower lobe infiltrate. This has resolved. The lungs are clear PLEURA: No significant pleural effusion identified, no pneumothorax apparent. CARDIOVASCULAR: No aortic atherosclerotic calcification present. Normal cardiac size. No pulmonary vascular congestion. OSSEOUS STRUCTURES: No significant abnormalities. VISUALIZED UPPER ABDOMEN: Normal. OTHER FINDINGS: None. IMPRESSION: The previous study showed a left lower lobe infiltrate. This has resolved. The lungs are clear
[2018-07-06 15:11] LABS: BASO # 0.02 K/mm3 (0.0-2.0); BASO % 0.3 % (0.0-3.0); EOS # 0.1 (0.0-0.7); EOS % 1.2 % (1.5-5.0); HEMOGLOBIN 10.4 g/dL (12.0-16.0); LYMPH % 15.7 % (22.0-35.0); MEAN CELL VOLUME 101.6 fl (80.0-105.0); MEAN CORPUSCULAR HEMOGLOBIN 33.8 pg (25.0-35.0); MEAN CORPUSCULAR HGB CONC 33.2 g/dl (31.0-37.0); MONO # 0.2 (0.1-0.6); RBC 3.08 10^6/uL (3.5-6.1); RED CELL DISTRIBUTION WIDTH 13.5 % (11.5-14.5); WHITE BLOOD COUNT 6.6 10^3/uL (4.5-11.0)
[2018-07-06 15:18] LABS: ALT/SGPT 20 U/L (7-56); AST/SGOT 31 U/L (14-36); B-TYPE NATRIURETIC PEPTIDE 11100 pg/mL (0-450); BLOOD UREA NITROGEN 8 mg/dL (7-21); CALCIUM 8.9 mg/dL (8.4-10.5); GFR NON-AFRICAN AMERICAN > 60; LIPASE 24 U/L (23-300)
[2018-07-06] MEDS ORDERED: Sodium Chloride 0.9% 1,000 ML IV STA (15:40)
[2018-07-06 16:56] VITALS: BP 101/59; PULSE 85; RESP 18; TEMP 98; O2SAT 98
--- NOTE | 2018-07-06 18:58 | CARD ---
APPROVED REPORT Date of service: 07/06/2018 EKG Measurement Heart [id number] CT [id number] <Conclusion> Sinus bradycardia Left axis deviation Left bundle branch block Abnormal ECG
== END 2018-07-06 16:58 | disposition home or self-care (01) ==
LOC: ED 13:16
DX: R11.0 Nausea (principal); E86.0 Dehydration; E11.9 Type 2 diabetes mellitus without complications; F17.210 Nicotine dependence, cigarettes, uncomplicated; I50.9 Heart failure, unspecified; I10 Essential (primary) hypertension; J44.9 Chronic obstructive pulmonary disease, unspecified
CPT/HCPCS: 71045; 80053; 83690; 83735; 83880; 84100; 85025; 93005; 96374; 99285; J2765; J7030